=== PATIENT | female | born 1965 | race Caucasian/White ===

== ENCOUNTER → 2017-04-11 11:58 | Outpatient (CLI) | payer BC, SELFPAY ==
--- NOTE | 2017-04-11 12:04 | XR_ITS ---
XR chest 2V HISTORY: ITS.REASON: PNEUMONIA ORDERING PHYSICIAN: Narda Johnson PATIENT AGE: 51 years COMPARISON: 10/07/2010 FINDINGS: The heart size is normal. There is however increased density in the ronny bilaterally with mild prominence of mediastinum consistent with bilateral hilar and mediastinal adenopathy. There is increased density in the left perihilar region which is somewhat rounded in nature measuring 2.5 cm. While this could be due to an area of pneumonia, pulmonary mass is also considered. There is some patchy density in the right infrahilar region as well with a nodular opacity noted over the right lower lung zone at the fifth rib anteriorly. This measures 12 mm. An 8 mm nodule present in the right upper lobe. This constellation of findings are worrisome for metastatic disease. Recommend chest CT with contrast for further evaluation. No obvious effusion. No acute bony anomalies. There are atelectatic changes in the left hilum. IMPRESSION: 1. Mediastinal and hilar adenopathy with bilateral pulmonary nodules suspicious for metastatic disease. Recommend chest CT with contrast for further evaluation. 2. Left perihilar atelectatic change.
== END ==
PROVIDERS: PCP Nurse Practitioner Family; Visit Provider Nurse Practitioner Family
DX: J18.9 Pneumonia, unspecified organism (principal)
CPT/HCPCS: 71046

== ENCOUNTER → 2017-04-17 10:08 | Outpatient (CLI) | payer BC, SELFPAY ==
--- NOTE | 2017-04-17 10:15 | CT_ITS ---
CT chest w con HISTORY: ITS.REASON: LUNG MASS ORDERING PHYSICIAN: Guillaume Toro MD PATIENT AGE: 51 years TECHNIQUE: Axial images obtained following the administration of 75 mL of Isovue 370 . Sagittal, and coronal reformatted images are also generated and reviewed. COMPARISON: Chest x-ray 04/11/2017 FINDINGS: There is diffuse mediastinal and hilar adenopathy. Right hilar lymph nodes measure up to 4.2 x 3.1 cm. Left hilar lymph nodes measure up to 3.5 x 3.3 cm. Right pretracheal lymph nodes measure up to 3.3 x 2.7 cm. There are multiple pulmonary nodules in both lungs measuring up to 4.6 x 4 cm in the right upper lobe. The increased density in the right upper lobe and part may be related to post obstructive changes. Nonetheless, there are in numerable bilateral small pulmonary nodules measuring up to 1.3 cm right lower lobe and 2.3 cm and the left perihilar region. No pleural effusion. Upper abdominal images show at least 2 enhancing lesions of the liver the largest in the right hepatic lobe at 2.9 x 2.5 cm. This has some decreased density centrally. There is a 12 mm enhancing lesion in the anterior segment of the right hepatic lobe and an additional 16 mm enhancing lesion at the junction of the right left hepatic lobe. The liver is incompletely imaged. In addition, there is a large left retroperitoneal mass measuring 9.5 x 8.9 cm with some decreased density centrally. The superior to be coming from the left adrenal gland. However, dedicated CT abdomen is needed for confirmation. There is sclerosis involving the adjoining endplates T8 and T9 which may be discogenic in nature. A small sclerotic focus involves the inferior aspect of the T10 vertebral body on the left. This is nonspecific. IMPRESSION: 1. Metastatic disease of the lungs with mediastinal and hilar adenopathy along with metastasis of the liver. 2. Approximately 10 cm left retroperitoneal mass which may be adrenal in origin and may be due to metastatic disease or an adrenal/renal primary. Suggest CT scan of the abdomen and pelvis with IV and oral contrast for further evaluation.
== END ==
PROVIDERS: Family Provider Family Medicine; PCP Nurse Practitioner Family; Visit Provider Family Medicine
DX: R91.8 Other nonspecific abnormal finding of lung field (principal)
CPT/HCPCS: 71260; Q9967

== ENCOUNTER → 2017-04-19 08:04 | Outpatient (CLI) | payer BC, SELFPAY ==
--- NOTE | 2017-04-19 08:09 | CT_ITS ---
CT abdomen pelvis w con CLINICAL INDICATION: ITS.REASON: WIDESPREAD METASTATIC MALIGNANT NEOPLASTIC DISEASE ORDERING PHYSICIAN: Guillaume Toro MD PATIENT AGE: 51 years COMPARISON: CT chest of 04/17/2017 TECHNIQUE: Axial images obtained with sagittal and coronal reformats. PROCEDURE: Oral Contrast: Redicat IV Contrast: 75 mL's Isovue-370. FINDINGS: There are multiple liver lesions. Some of these lesions are better demonstrated on the chest CT of 04/17/2017 due to the phase of contrast enhancement. On that previous study there was a 3 cm peripherally enhancing lesion in the posterior segment of the right hepatic lobe as well as small enhancing nodules in the right hepatic lobe anteriorly at 12 mm and the left hepatic lobe medially at 16 mm. In addition, on today's exam there is a peripherally enhancing mass in the right hepatic lobe inferiorly at 3.9 x 3.3 cm. The spleen, right adrenal gland, pancreas, gallbladder, and right kidney are unremarkable. There is a heterogeneous mostly isodense left renal mass involving the mid and superior pole of the left kidney measuring 11 cm cephalad to caudad, 8 cm AP, an 8 cm transverse. This is immediately adjacent to the infra aspect of the spleen. However, there does appear to be a thin fat plane preserved between the renal mass and the spleen. The left adrenal gland appears slightly enlarged however, this may be due to superimposed adenopathy or nodularity from the left renal mass. There is adenopathy in the left para-aortic region measuring 4 x 3.6 cm. The fat plane between the enlarged node in the lateral aspect of the aorta on the left NOT preserved. The toney mass in the left periaortic region measures up to 4 cm AP, 4 cm transverse, and 10 cm cephalad to caudad. The left renal vein is enlarged proximally near the renal hilum. The renal vein on the left however is not well opacified. There could very well be involvement with invasion into the proximal aspect of the left renal vein. The renal vein as it overlies the toney mass does not appear enlarged and is not enlarged at the junction with the inferior vena cava. No acute finding in the pelvis area there has been prior hysterectomy. The appendix has an unremarkable appearance. No ascites. Surgical clips are present in the left pelvic region. No bony destructive process apparent. There are degenerative changes in the thoracic and lumbar spine. IMPRESSION: The findings are consistent with renal cell carcinoma with metastatic disease to the liver and lung and mediastinum along with regional lymph nodes in the left para-aortic region. Large left renal mass is present measuring 11 x 8 x 8 cm. Enlarged lymph nodes are present in the left para-aortic region and there may be involvement of the proximal aspect of the left renal vein.
--- NOTE | 2017-04-19 08:09 | CT_ITS ---
CT head/brain wo/w con HISTORY: ITS.REASON: WIDESPREAD METASTATIC MALIGNANT NEOPLASTIC DISEASE, liver and lung metastasis, cancer staging ORDERING PHYSICIAN: Guillaume Toro MD PATIENT AGE: 51 years COMPARISON: None TECHNIQUE: Axial images obtained without and with contrast. Brain and bone windows reviewed. Contrast: 75 mL Isovue-370 FINDINGS: No midline shift, mass effect, intracranial hemorrhage, hydrocephalus, or extra-axial fluid collection is evident. No enhancing lesions are evident. The calvarium has an unremarkable appearance. No mastoid effusion. No sinus air-fluid levels.. IMPRESSION: Negative CT head without and with contrast. No convincing evidence of intracranial metastasis.
--- NOTE | 2017-04-19 08:11 | MM_ITS ---
MM Dig screening mamm BI w/CAD CAD Screening COMPARISON: Digital mammograms 03/21/2012 INDICATION: There is no personal or family history of breast cancer TECHNIQUE: Standard CC and MLO images were obtained. R2 CAD reviewed. FINDINGS: Mild to moderate scattered fibroglandular densities are seen throughout both breasts. There are few benign-appearing calcifications in each breast. There is no suspicious lesion and no suspicious microcalcifications. IMPRESSION: Fibrofatty parenchyma with no suspicious lesion seen recommend yearly follow-up BI-RADS Category: 2 Benign Finding(s) RECOMMENDED FOLLOW-UP: 1YR - 1 YEAR FOLLOW-UP (A letter has been sent to the patient regarding results of the study.)
== END ==
PROVIDERS: Family Provider Family Medicine; PCP Nurse Practitioner Family; Visit Provider Family Medicine
DX: Z12.39 Encounter for other screening for malignant neoplasm of breast (principal); C80.0 Disseminated malignant neoplasm, unspecified
CPT/HCPCS: 70470; 74177; 77067; Q9967

== ENCOUNTER → 2017-05-07 12:52 | Outpatient (CLI) | payer BC, SELFPAY ==
--- NOTE | 2017-05-07 13:01 | XR_ITS ---
XR chest 2V HISTORY: ITS.REASON: COUGH ORDERING PHYSICIAN: Guillaume Toro MD PATIENT AGE: 51 years COMPARISON: 04/11/2017 FINDINGS: Mediastinal and hilar adenopathy is once again noted with bilateral pulmonary nodules suspicious for metastatic disease. A new area of infiltrate is present in the perihilar region on the left in the left upper lobe consistent with pneumonia. The left hilar adenopathy may be slightly worse. No effusions. No evidence of pneumothorax. No acute bony anomalies. IMPRESSION: 1. Left upper lobe pneumonia. 2. Persistent mediastinal and hilar adenopathy with no change in the bilateral pulmonary nodules consistent with metastasis. Left hilar adenopathy may be slightly more bulky.
--- NOTE | 2017-05-07 13:18 | US_ITS ---
US abdomen limited: INDICATION: Abdominal swelling following biopsy ITS.REASON: ABDOMINAL SWELLING ORDERING PHYSICIAN: Guillaume Toro MD PATIENT AGE: 51 years comparison: CT scan of 04/19/2017. FINDINGS: Patient is status post percutaneous biopsy performed at an outside institution now with increasing abdominal pain. There is a 4.7 x 3.9 cm isoechoic mass in the right hepatic lobe inferiorly. A 3 cm mass involves the right hepatic lobe posteriorly and medially. No perihepatic fluid collection apparent. Imaging performed of upper lower quadrants bilaterally showing no free fluid. The gallbladder has an unremarkable appearance. Common bile duct is normal at 4 mm. Right kidney is unremarkable. IMPRESSION: 1. No ascites or perihepatic fluid evident. 2. Right hepatic masses consistent with metastatic disease
== END ==
PROVIDERS: PCP Family Medicine; Visit Provider Family Medicine
DX: R05 Cough (principal)
CPT/HCPCS: 71046; 76705

== ENCOUNTER 2017-06-05 20:19 | Observation (INO) | payer BC, SELFPAY ==
[2017-06-05 20:28] VITALS: BP 134/87; PULSE 82; RESP 14; TEMP 36.8; O2SAT 97; BMI 26.6
--- NOTE | 2017-06-05 20:36 | CT_ITS ---
CT abdomen pelvis wo con CLINICAL INDICATION: Abdominal pain, renal cell carcinoma with metastasis ITS.REASON: ABD PAIN ORDERING PHYSICIAN: Guillaume Toro MD PATIENT AGE: 51 years COMPARISON: 04/19/2017 TECHNIQUE: Axial images obtained with sagittal and coronal reformats. PROCEDURE: Oral Contrast: None IV Contrast: None . FINDINGS: Multiple bilateral pulmonary nodules are present along with bilateral hilar adenopathy with the largest nodule on the right measuring 12 x 9 mm and largest nodule in the peripheral aspect of the left lower lobe 5 mm. Some of the nodules have increased in size. There are multiple hypoattenuating lesions within the liver the largest in the inferior aspect of the right hepatic lobe which measures 5.6 x 5.4 cm previously 3.3 x 3.9 cm. Another lesion in the medial aspect of the right hepatic lobe measures 3.8 x 2.9 cm previously 1.8 x 1.8 cm. Spleen, adrenal glands, and pancreas and right kidney are unremarkable. Once again noted a large left renal mass 10 x 8 9 x 7.5 cm. Extensive retroperitoneal adenopathy once again noted on the left measuring approximately 12 cm longitudinally and 4.5 cm transverse previously 11 x 4.2 cm No focal inflammatory change. No evidence of appendicitis or diverticulitis. No intestinal obstruction or free air. There are post hysterectomy changes. No bony destructive process. IMPRESSION: The findings are consistent with left renal malignancy with associated left retroperitoneal lymph nodes, hepatic metastasis, and lung opacities. There has been progression of the primary and metastatic lesions when compared to the previous exam
--- NOTE | 2017-06-05 20:36 | XR_ITS ---
XR chest 2V HISTORY: ITS.REASON: CHILLS, FEVER ORDERING PHYSICIAN: Guillaume Toro MD PATIENT AGE: 51 years COMPARISON: 05/07/17 FINDINGS: Normal heart size. There is mediastinal adenopathy and hilar adenopathy with bilateral pulmonary nodules as before. There are minimal atelectatic changes in the left midlung. No lobar consolidation or collapse. No bony destructive process. IMPRESSION: 1. Metastatic disease with multiple pulmonary nodules and mediastinal and hilar adenopathy. These findings may be slightly worse than when compared to the previous exam. 2. No acute infiltrate apparent
[2017-06-05 21:02] LABS: Basophils % 0.4 % (0.1-2.0); Eosinophils # 0.1 K/mm3 (0.0-0.4); Eosinophils % 0.7 % (0.1-12.0); Hematocrit 37.2 % (37.0-47.0); Hemoglobin 12.1 g/dL (12.2-16.2); Lymphocytes # 1.2 K/mm3 (0.7-4.5); Lymphocytes % 11.4 K/mm3 (10-50); Mean Corpuscular HGB Conc 32.5 g/dL (31.8-35.4); Mean Corpuscular Hemoglobin 27.8 pg (27.0-31.2); Mean Corpuscular Volume 85.5 fl (81-99); Mean Platelet Volume 7.7 fl (7.4-10.4); Monocytes # 0.6 K/mm3 (0.1-1.0); Monocytes % 5.9 % (1.7-9.3); Neutrophils # 8.7 K/mm3 (1.8-7.8); Neutrophils % 81.6 % (37.0-80.0); Platelet Count 281 K/mm3 (142-424); Red Blood Count 4.35 M/mm3 (4.20-5.40); Red Cell Distribution Width 13.5 % (11.5-17.5); White Blood Count 10.6 K/mm3 (4.8-10.8)
--- NOTE | 2017-06-05 21:07 | CT_ITS ---
CT head/brain wo con HISTORY: Headache, metastatic disease from renal carcinoma ORDERING PHYSICIAN: Guillaume Toro MD PATIENT AGE: 51 years COMPARISON: 04/19/2017 TECHNIQUE: Axial images obtained without contrast. Brain and bone windows reviewed. FINDINGS: No midline shift, mass effect, intracranial hemorrhage, hydrocephalus, or extra-axial fluid collection is evident. The calvarium has an unremarkable appearance. Small amount fluid in left mastoid sinus.. No sinus air-fluid levels.. IMPRESSION: No acute intracranial findings..
[2017-06-05 21:15] LABS: Alanine Aminotransferase 24 U/L (12-78); Albumin Level 2.9 gm/dL (3.4-5.0); Albumin/Globulin Ratio 0.6 (1.1-1.8); Alkaline Phosphatase 113 U/L (46-116); Amylase 49 U/L (25-125); Anion Gap 15.6 mEq/L (5-15); Aspartate Amino Transferase 14 U/L (15-37); Bilirubin,Total 0.3 mg/dL (0.2-1.0); Blood Urea Nitrogen 19 mg/dL (7-18); Calcium 9.2 mg/dL (8.5-10.1); Carbon Dioxide 25 mmol/L (21.0-32.0); Chloride 97 mmol/L (98-107); Creatinine Clearance Estimated 70 mL/min (0-300); Creatinine,Serum 1.07 mg/dL (0.55-1.02); Estimated Glomerular Filt Rate 54 ml/min (>60); GFR (African American) 65 ML/MIN (>60); Globulin 4.6 gm/dl (1.3-3.2); Glucose 145 mg/dL (74-106); Lipase 116 u/L (73-393); Potassium 3.6 mmoL/L (3.5-5.1); Sodium 134 mmol/L (136-145); Total Protein,Serum 7.5 gm/dL (6.4-8.2)
[2017-06-05 21:22] LABS: Lactic Acid 2.8 mmol/L (0.4-2.0)
[2017-06-05 21:28] LABS: Microscopic, Urine URINE MICROSCOPIC (MICROSCOPIC)
[2017-06-05 21:30] LABS: Appearance,Urine CLEAR (Clear); Bilirubin,Urine Negative (Negative); Blood, Urine 3+ (Negative); Color,Urine YELLOW (Yellow); Glucose,Urine (UA) Negative (Negative); Ketones,Urine Negative (Negative); Leukocyte Esterase,Urine Negative (Negative); Nitrate,Urine Negative (Negative); Protein,Urine 2+ (Negative); Specific Gravity, Urine 1.025 (1.005-1.030); Urobilinogen,Urine 0.2 EU/dl (0.2)
--- NOTE | 2017-06-05 21:38 | HMH.EDWEAK ---
ED Disposition Clinical Impression: Syncope, near Renal cancer Qualifiers: Laterality: unspecified laterality Qualified Code(s): C64.9 - Malignant neoplasm of unspecified kidney, except renal pelvis Adverse drug effect Qualifiers: Encounter type: initial encounter Qualified Code(s): T88.7XXA - Unspecified adverse effect of drug or medicament, initial encounter Disposition: Admitted as Observation Condition on Discharge: Good Referrals: Guillaume Toro MD [Primary Care Provider] - - Critical Care Critical Care Time: No Attestation: On 06/05/17, the high probability of a clinically significant, sudden or life threatening deterioration of the following system(s) required my full and direct attention, intervention and personal management. The time I documented below is in addition to time spent performing reported procedures but includes the following listed in this critical care notation. Medical Decision Making - Medical Records Medical records reviewed: Yes: I reviewed the patient's medical records. Vital Signs: 06/05/17 20:28 06/05/17 22:08 Temperature 98.2 F Temperature Source Oral Pulse Rate [Right Radial] 82 67 Respiratory Rate 14 16 Blood Pressure [Right Arm] 134/87 111/72 Blood Pressure Mean [Right Arm] 102 85 Blood Pressure Source [Right Arm] Automatic Cuff Blood Pressure Position [Right Arm] Sitting Supine 02 Sat by Pulse Oximetry 97 97 Oxygen Delivery Method Room Air - Lab Data Lab results reviewed: Yes: I reviewed the patient's lab results. Lab Results 06/05/17 20:40: Urine Color Yellow, Urine Appearance Clear, Urine pH 7.0, Ur Specific [place] 1.025, Urine Protein 2+, Urine Glucose (UA) Negative, Urine Ketones Negative, Urine Blood 3+, Urine Nitrate Negative, Urine Bilirubin Negative, Urine Urobilinogen 0.2, Ur Leukocyte Esterase Negative, Urine RBC 20-50, Urine WBC 10-20, Ur Squamous Epith Cells 5-10, Urine Bacteria 2+, Hyaline Casts Occasional, Urine Mucus 2+ 06/05/17 20:45: WBC 10.6, RBC 4.35, Hgb 12.1 L, Hct 37.2, MCV 85.5, MCH 27.8, MCHC 32.5, RDW 13.5, Plt Count 281, MPV 7.7, Neut % (Auto) 81.6 H, Lymph % (Auto) 11.4, [place] % (Auto) 5.9, Eos % (Auto) 0.7, Baso % (Auto) 0.4, Neut # (Auto) 8.7 H, Lymph # (Auto) 1.2, [place] # (Auto) 0.6, Eos # (Auto) 0.1, Baso # (Auto) 0.0 06/05/17 20:45: Sodium 134 L, Potassium 3.6, Chloride 97 L, Carbon Dioxide 25, Anion Gap 15.6 H, BUN 19 H, Creatinine 1.07 H, Estimated Creat Clear 70, Estimated GFR 54 L, Est GFR ( Amer) 65, Glucose 145 H, Calcium 9.2, Total Bilirubin 0.3, AST 14 L, ALT 24, Alkaline Phosphatase 113, Total Protein 7.5, Albumin 2.9 L, Globulin 4.6 H, Albumin/Globulin Ratio 0.6 L, Amylase 49, Lipase 116 06/05/17 20:45: Lactic Acid 2.8 H 06/05/17 20:45: Influenza Type A Ag Negative, Influenza Type B Ag Negative Result diagrams: 06/05/17 20:45 06/05/17 20:45 Orders (Tests/Meds): ED MEDICATIONS Generic Name Dose Route Start Last Admin Trade Name Freq PRN Reason Stop Dose Admin Sodium Chloride 1,000 mls @ 250 mls/hr 06/05/17 22:15 06/05/17 22:17 Sod Chlor 0.9% 1000ml Bag IV 07/05/17 22:14 250 mls/hr .Q4H DINESH Administration Discontinued Medications Generic Name Dose Route Start Last Admin Trade Name Freq PRN Reason Stop Dose Admin Sodium Chloride 1,000 mls @ 999 mls/hr 06/05/17 20:45 06/05/17 20:49 Sod Chlor 0.9% 1000ml Bag IV 06/05/17 21:45 999 mls/hr .Q1H1M DINESH Administration Ketorolac Tromethamine 30 mg 06/05/17 20:50 06/05/17 20:51 Toradol 30mg/Ml Vial IV 06/05/17 20:51 30 mg ONCE ONE Administration ORDERS Category Date Time Status CT abdomen pelvis wo con Stat Cat Scan 06/05/17 20:[address] head/brain wo con Routine Cat Scan 06/05/17 21:07 Taken XR chest 2V Stat Exams 06/05/17 20:36 Taken UA [Urinalysis and Microscopic] Stat Lab 06/05/17 22:53 Ordered Blood Culture Stat Micro 06/05/17 22:53 Ordered Urine Culture Stat Micro 06/05/17 20:40 Received - Rad
[2017-06-05 21:46] LABS: Bacteria,Urine 2+ /lpf; Hyaline Casts,Urine Occasional #/lpf (0); Mucus,Urine 2+ /lpf; RBC,Urine 20-50 #/hpf (0-3)
[2017-06-05 22:08] VITALS: BP 111/72; PULSE 67; RESP 16; O2SAT 97
--- NOTE | 2017-06-05 22:47 | PC.NURSE ---
dr dick paged per dr brandt reagarding admission
--- NOTE | 2017-06-05 22:52 | PC.NURSE ---
dr brandt speaking with mayelin at this time
--- NOTE | 2017-06-05 22:55 | PC.NURSE ---
dr dick agreed to admission
[2017-06-05 23:11] VITALS: BMI 28.0
[2017-06-05 23:22] VITALS: BP 121/70; PULSE 78; RESP 20; TEMP 36.6; O2SAT 99
[2017-06-05 23:44] VITALS: BP 121/73; PULSE 66; RESP 16; TEMP 36.4; O2SAT 96
[2017-06-06 00:52] LABS: Reflex Lactic Add Lactic Reflex
[2017-06-06 01:37] LABS: Lactic Acid Follow Up (RFLX 1) 1.2 (0.4-2.0)
[2017-06-06 04:09] VITALS: BP 110/70; PULSE 69; RESP 14; TEMP 36.6; O2SAT 97
--- NOTE | 2017-06-06 04:10 | PC.NURSE ---
Since admission pt has had only complaints of mild abdominal pain, medicated per mar, has rested well since medication administration. BS active in all 4 qauds, LBM 06/05/17. Lung sounds diminished. VSS. Jaundice noted to abdomen. No acute distress noted. Will continue to monitor.
[2017-06-06 06:48] LABS: Basophils % 0.5 % (0.1-2.0); Eosinophils # 0.1 K/mm3 (0.0-0.4); Hematocrit 34.9 % (37.0-47.0); Lymphocytes % 14.1 K/mm3 (10-50); Mean Corpuscular HGB Conc 31.7 g/dL (31.8-35.4); Mean Corpuscular Hemoglobin 27.2 pg (27.0-31.2); Mean Platelet Volume 8.8 fl (7.4-10.4); Monocytes # 0.5 K/mm3 (0.1-1.0); Monocytes % 6.9 % (1.7-9.3); Neutrophils # 5.2 K/mm3 (1.8-7.8); Neutrophils % 76.5 % (37.0-80.0); Platelet Count 213 K/mm3 (142-424); Red Blood Count 4.06 M/mm3 (4.20-5.40); Red Cell Distribution Width 13.7 % (11.5-17.5); White Blood Count 6.8 K/mm3 (4.8-10.8)
[2017-06-06 07:02] LABS: Anion Gap 10.7 mEq/L (5-15); Blood Urea Nitrogen 21 mg/dL (7-18); Carbon Dioxide 27 mmol/L (21.0-32.0); Chloride 104 mmol/L (98-107); Creatinine Clearance Estimated 99 mL/min (0-300); Creatinine,Serum 0.79 mg/dL (0.55-1.02); Estimated Glomerular Filt Rate 76 ml/min (>60); GFR (African American) 92 ML/MIN (>60); Glucose 107 mg/dL (74-106); Magnesium 1.7 mg/dL (1.4-2.2); Potassium 3.7 mmoL/L (3.5-5.1); Sodium 138 mmol/L (136-145)
--- NOTE | 2017-06-06 07:23 | HMH.PHAVTE ---
[facility] Pharmacy VTE Monitoring - Patient Demographics Admission date: 06/05/17 Report Date: 06/06/17 Time: 07:23 Allergies/Adverse Reactions: Patient Allergies adalimumab [From Humira] Allergy (Severe, Verified 06/05/17 20:36) Rash Height: 1.65 m Weight: 76.345 kg Patient Problems: Current Active Problems Syncope, near (Acute) Renal cancer (Acute) Adverse drug effect (Acute) - VTE Risk Labs: VTE Related Lab Results Hgb 11.0 g/dL (12.2-16.2) L 06/06/17 06:30 Hct 34.9 % (37.0-47.0) L 06/06/17 06:30 Plt Count 213 K/mm3 (142-424) 06/06/17 06:30 BUN 21 mg/dL (7-18) H 06/06/17 06:30 Creatinine 0.79 mg/dL (0.55-1.02) D 06/06/17 06:30 Estimated Creat Clear 99 mL/min (0-300) 06/06/17 06:30 Was VTE Risk Assessment Performed: Yes VTE Score: 4 VTE Risk Level: Low Risk Clinical Trial Participant: No - Prophylaxis VTE Prophylaxis Ordered?: Yes Types of VTE Prophylaxis: TEDS Knee High
[2017-06-06 07:50] VITALS: BP 131/81; PULSE 73; RESP 18; TEMP 36.7; O2SAT 97
--- NOTE | 2017-06-06 08:25 | HMH.HP ---
*Admission Date: 06/05/17 <Cristal [place] 06/06/17 08:38> *Chief complaint: Weakness, chills, presyncope <Cristal [place] 06/06/17 08:38> *History of present illness: Ms. Carter is a 51-year-old female with history of metastatic renal cell carcinoma. She started chemo on Votrient 800 mg daily 1 week ago. Her oncologist is at [facility]. She states yesterday she began feeling extremely weak. She was chilling even with numerous layers of clothes, her back was hurting, she was having a severe right-sided headache, and she felt like she could pass out. Her daughter took her blood pressure and it was 100/60. States she came to the emergency room for evaluation and treatment. Her lactic acid was slightly elevated. She was admitted. Oncology at [facility] was consulted and they recommended she stop taking her Votrient. <Cristal Washington 06/06/17 08:38> [facility] History Medical History: Reports:: Cancer (lung, renal, liver), Hyperlipidemia, Hypertension Denies:: Diabetes Mellitus Type 1, Diabetes Mellitus Type 2, MRSA <Cristal [place] 06/06/17 08:38> Other Medical History: Reports: Blood Transfusion Reaction, Chemotherapy, Hypothyroidism <Cristal [place] 06/06/17 08:38> Other Surgeries: Yes: , Hysterectomy-Total <Critsal [place] 06/06/17 08:38> Amputation: No <Cristal [place] 06/06/17 08:38> Fractures: No <Cristal [place] 06/06/17 08:38> - *Social History Educational Level: Completed College <Cristal [place] 06/06/17 08:38> Smoking Status: Former smoker <Cristal [place] 06/06/17 08:38> Alcohol Intake: never <Cristal [place] 06/06/17 08:38> Occupational Status: employed <Cristal Washington 06/06/17 08:38> Household Members: spouse, children <Cristal Washington 06/06/17 08:38> - Psychiatric History Expresses thoughts of harming self/others: None <Cristal [place] - 03/07/18 08:38> Suicide Plan Description: No Plan <Cristal [place] 06/06/17 08:38> *Family Hx:: Cancer, Heart Attack, Hypertension, Stroke <Cristal [place] 06/06/17 08:38> Review of Systems - Constitutional Reports body ache(s), Reports chills, Reports fever(s), Reports headache(s), Reports weakness <Cristal [place] 06/06/17 08:38> - Eyes Denies blurry vision, Denies double vision <Cristal [place] 06/06/17 08:38> - ENT Denies nasal congestion, Denies sore throat <Cristal [place] 06/06/17 08:38> - *Cardiovascular Reports chest pain (off and on) <Cristal [place] 06/06/17 08:38> - *Respiratory Reports cough, Reports shortness of breath <Cristal [place] 06/06/17 08:38> - *Gastrointestinal Reports abdominal pain (epigastric), Reports loose stools, Reports nausea, Reports vomiting <Cristal [place] 06/06/17 08:38> - *Genitourinary Denies difficulty urinating, Denies painful urination <Cristal [place] 06/06/17 08:38> - *Musculoskeletal Denies joint pain <Cristal [place] 06/06/17 08:38> - *Neurologic Reports headache(s), Denies dizziness, Denies seizure-like activity, Denies dizziness <Cristal [place] 06/06/17 08:38> Meds Home Medications Medication Instructions Recorded Confirmed Type Estradiol 2 mg PO DAILY 06/05/17 06/05/17 History Levothyroxine Sodium 88 mcg PO DAILY 06/05/17 06/05/17 History [Levothyroxine 88mcg (0.088mg) Tab] Lisinopril/Hydrochlorothiazide 1 tab PO DAILY 06/05/17 06/05/17 History [Lisinopril-Hctz 20-12.5 mg Tab] Montelukast Sodium [Montelukast 10 mg PO DAILY 06/05/17 06/05/17 History 10mg Tab] Pazopanib HCl [Votrient] 800 mg PO DAILY 06/05/17 06/05/17 History Lovastatin [Lovastatin] 40 mg PO HS 06/06/17 06/06/17 History Ustekinumab [Stelara] 45 mg SQ DIRECTED 06/06/17 06/06/17 History <Guillaume Toro - 06/06/17 08:40> Allergies Allergy/AdvReac Type Severity Reaction Status Date / Time adalimumab [From Humira] Allergy Severe Rash Verified 06/05/17 20:36 <Guillaume Toro - 06/06/17 08:40> Exam Vital signs and Labs for Last 24 Hours: Temp Pulse Resp BP Pulse Ox 9
--- NOTE | 2017-06-06 08:29 | P.HP_ITS ---
*Admission Date: 06/05/17 <Cristal Washington 06/06/17 08:38> *Chief complaint: Weakness, chills, presyncope <Cristal Washington 06/06/17 08:38 > *History of present illness: Ms. Carter is a 51-year-old female with history of metastatic renal cell carcinoma. She started chemo on Votrient 800 mg daily 1 week ago. Her oncologist is at [facility]. She states yesterday she began feeling extremely weak. She was chilling even with numerous layers of clothes, her back was hurting, she was having a severe right-sided headache, and she felt like she could pass out. Her daughter took her blood pressure and it was 100/60. States she came to the emergency room for evaluation and treatment. Her lactic acid was slightly elevated. She was admitted. Oncology at [facility] was consulted and they recommended she stop taking her Votrient. <Cristal Washington 06/06/17 08:38> [facility] History Medical History: Reports:: Cancer (lung, renal, liver), Hyperlipidemia, Hypertension Denies:: Diabetes Mellitus Type 1, Diabetes Mellitus Type 2, MRSA <Cristal Washington 06/06/17 08:38> Other Medical History: Reports: Blood Transfusion Reaction, Chemotherapy, Hypothyroidism <Cristal Washington 06/06/17 08:38> Other Surgeries: Yes: , Hysterectomy-Total <Cristal Washington 06/06/17 08:38> Amputation: No <Cristal Washington 06/06/17 08:38> Fractures: No <Cristal Washington 06/06/17 08:38> - *Social History Educational Level: Completed College <Cristal Washington 06/06/17 08:38> Smoking Status: Former smoker <Cristal Washington 06/06/17 08:38> Alcohol Intake: never <Cristal Washington 06/06/17 08:38> Occupational Status: employed <Cristal Washington 06/06/17 08:38> Household Members: spouse, children <Cristal Washington 06/06/17 08:38> - Psychiatric History Expresses thoughts of harming self/others: None <Cristal Washington - 03/07/18 08: 38> Suicide Plan Description: No Plan <Cristal Washington 06/06/17 08:38> *Family Hx:: Cancer, Heart Attack, Hypertension, Stroke <Cristal Washington 06/06 08:38> Review of Systems - Constitutional Reports body ache(s), Reports chills, Reports fever(s), Reports headache(s), Reports weakness <Cristal Washington 06/06/17 08:38> - Eyes Denies blurry vision, Denies double vision <Cristal Washington 06/06/17 08:38> - ENT Denies nasal congestion, Denies sore throat <Cristal Washington 06/06/17 08:38> - *Cardiovascular Reports chest pain (off and on) <Cristal Washington 06/06/17 08:38> - *Respiratory Reports cough, Reports shortness of breath <Cristal Washington 06/06/17 08:38> - *Gastrointestinal Reports abdominal pain (epigastric), Reports loose stools, Reports nausea, Reports vomiting <Cristal Washington 06/06/17 08:38> - *Genitourinary Denies difficulty urinating, Denies painful urination <Cristal Washington 08:38> - *Musculoskeletal Denies joint pain <Cristal Washington 06/06/17 08:38> - *Neurologic Reports headache(s), Denies dizziness, Denies seizure-like activity, Denies dizziness <Cristal Washington 06/06/17 08:38> Meds Home Medications Medication Instructions Recorded Confirmed Type Estradiol 2 mg PO DAILY 06/05/17 06/05/17 History Levothyroxine Sodium 88 mcg PO DAILY 06/05/17 06/05/17 History [Levothyroxine 88mcg (0.088mg) Tab] Lisinopril/Hydrochlorothiazide 1 tab PO DAILY 06/05/17 06/05/17 History [Lisinopril-Hctz 20-12.5 mg Tab] Montelukast Sodium [Montelukast 10 mg PO DAILY 06/05/17 06/05/17 History 10mg Tab] Pazopanib HCl [Votrient] 800 mg PO DAILY 06/05/17 06/05/17 History Lovastatin [Lovastatin] 40 m
[2017-06-06 13:30] VITALS: BMI 28.0
[2017-06-06 16:00] VITALS: BP 136/76; PULSE 79; RESP 22; TEMP 37.5; O2SAT 98
--- NOTE | 2017-06-06 18:38 | PC.NURSE ---
lungs are cta, normal heart and lung sounds. c/o of pain to right side of head prn med given per mar with relief. c/o of chills off and on this shift. call light in reach. will continue to monitor pt condition.
--- NOTE | 2017-06-06 19:15 | PC.NURSE ---
PT DNR. PURPLE DNR BRACELET ON. CODE STATUS DOCUMENT VERIFIED AND ON CHART. REPORT RECEIVED FROM ESTEFANI
--- NOTE | 2017-06-06 19:30 | PC.NURSE ---
report given to artemio tam rn
[2017-06-06 19:50] VITALS: BP 127/75; PULSE 82; RESP 20; TEMP 37; O2SAT 93
[2017-06-06 21:00] VITALS: RESP 20; O2SAT 93
[2017-06-07 04:00] VITALS: BP 120/77; PULSE 83; RESP 18; TEMP 37.3; O2SAT 95
--- NOTE | 2017-06-07 05:53 | PC.NURSE ---
PT SLEPT MOST ALL OF SHIFT. C/O HEADACHE X1, ONE LORTAB GIVEN. PT STATES FEELS MUCH BETTER. RESPIRATIONS EVEN AND UNLABORED ON ROOM AIR. BREATH SOUNDS EQUAL AND CLEAR. NO C/O CHEST PAIN. PT DOES C/O SOA UPON EXERTION, JUST WALKING TO/FROM BATHROOM. VSS. IV SECURE AND PATENT. PT STABLE. WILL CONTINUE TO MONITOR. REPORT TO BE GIVEN TO ONCOMING NURSE.
[2017-06-07 07:58] VITALS: BP 134/76; PULSE 72; RESP 18; TEMP 37.1; O2SAT 97
--- NOTE | 2017-06-07 08:17 | HMH.ACPN2 ---
<Cristal Washington - Last Filed: 06/07/17 08:17> Internal Medicine - PN: Subj *Date: 06/07/17 *Time: 08:17 Interval history: Patient is feeling better today. She has been off of her chemo for 2 days. Her labs improved yesterday morning. Her abdominal pain has improved as has her headache. Exam Vital signs and Labs for Last 24 Hours: Temp Pulse Resp BP Pulse Ox 98.7 F 72 18 134/76 97 06/07/17 07:58 06/07/17 07:58 06/07/17 07:58 06/07/17 07:58 06/07/17 07:58 Lab Results 06/05/17 20:40: Urine Color Yellow, Urine Appearance Clear, Urine pH 7.0, Ur Specific [place] 1.025, Urine Protein 2+, Urine Glucose (UA) Negative, Urine Ketones Negative, Urine Blood 3+, Urine Nitrate Negative, Urine Bilirubin Negative, Urine Urobilinogen 0.2, Ur Leukocyte Esterase Negative, Urine RBC 20-50, Urine WBC 10-20, Ur Squamous Epith Cells 5-10, Urine Bacteria 2+, Hyaline Casts Occasional, Urine Mucus 2+ 06/05/17 20:45: WBC 10.6, RBC 4.35, Hgb 12.1 L, Hct 37.2, MCV 85.5, MCH 27.8, MCHC 32.5, RDW 13.5, Plt Count 281, MPV 7.7, Neut % (Auto) 81.6 H, Lymph % (Auto) 11.4, [place] % (Auto) 5.9, Eos % (Auto) 0.7, Baso % (Auto) 0.4, Neut # (Auto) 8.7 H, Lymph # (Auto) 1.2, [place] # (Auto) 0.6, Eos # (Auto) 0.1, Baso # (Auto) 0.0 06/05/17 20:45: Sodium 134 L, Potassium 3.6, Chloride 97 L, Carbon Dioxide 25, Anion Gap 15.6 H, BUN 19 H, Creatinine 1.07 H, Estimated Creat Clear 70, Estimated GFR 54 L, Est GFR ( Amer) 65, Glucose 145 H, Calcium 9.2, Total Bilirubin 0.3, AST 14 L, ALT 24, Alkaline Phosphatase 113, Total Protein 7.5, Albumin 2.9 L, Globulin 4.6 H, Albumin/Globulin Ratio 0.6 L, Amylase 49, Lipase 116 06/05/17 20:45: Lactic Acid 2.8 H 06/05/17 20:45: Influenza Type A Ag Negative, Influenza Type B Ag Negative 06/06/17 01:05: Lactic Acid Fup @ 4Hr 1.2 06/06/17 06:30: WBC 6.8 D, RBC 4.06 L, Hgb 11.0 L, Hct 34.9 L, MCV 86.0, MCH 27.2, MCHC 31.7 L, RDW 13.7, Plt Count 213, MPV 8.8, Neut % (Auto) 76.5, Lymph % (Auto) 14.1, [place] % (Auto) 6.9, Eos % (Auto) 2.0, Baso % (Auto) 0.5, Neut # (Auto) 5.2, Lymph # (Auto) 1.0, [place] # (Auto) 0.5, Eos # (Auto) 0.1, Baso # (Auto) 0.0 06/06/17 06:30: Sodium 138, Potassium 3.7, Chloride 104, Carbon Dioxide 27, Anion Gap 10.7, BUN 21 H, Creatinine 0.79 D, Estimated Creat Clear 99, Estimated GFR 76, Est GFR ( Amer) 92 D, Glucose 107 H D, Magnesium 1.7 Microbiology Results 06/05/17 20:40 Urine,Clean Catch Urine Culture - Final Multiple organisms, suggests contamination. 06/05/17 20:45 Blood Blood Culture - Preliminary NO GROWTH AFTER 24 HOURS 06/05/17 20:45 Blood Blood Culture - Preliminary NO GROWTH AFTER 24 HOURS I & O for Last 24 hours: Intake & Output 06/04/17 06/05/17 06/06/17 06/07/17 11:59 11:59 11:59 11:59 Intake Total 591 / 591 3497 / 3497 Output Total 360 / 360 0 / 0 Balance 231 / 231 3497 / 3497 Weight 168 lb 4.99 oz 168 lb 4.99 oz - Constitutional no acute distress - *Routine Respiratory Exam Present: CTA bilaterally - *Routine Cardiovascular Exam Present: RRR - *Routine Abdominal Exam Present: soft, normoactive bowel sounds. Absent: tenderness - *Routine Extremities Exam Absent: edema Assessment and Plan (1) Syncope, near Current visit: Yes Status: Acute Category: Medical Code(s): R55 - Syncope and collapse (2) Adverse drug effect Current visit: Yes Status: Acute Qualifiers: Encounter type: initial encounter Qualified Code(s): T88.7XXA - Unspecified adverse effect of drug or medicament, initial encounter Category: Medical Code(s): T88.7XXA - Unspecified adverse effect of drug or medicament, initial encounter (3) Elevated lactic acid level Current visit: Yes Status: Acute Category: Medical Code(s): R79.89 - Other specified abnormal findings of blood chemistry (4) Renal insufficiency Current visit: Yes Status: Acute Fide
--- NOTE | 2017-06-09 17:45 | HMH.DCSUM ---
General - General Admission date: 06/05/17 Discharge date: 06/07/17 HPI HPI: Ms. Carter is a 51-year-old female with history of metastatic renal cell carcinoma. She started chemo on Votrient 800 mg daily 1 week ago. Her oncologist is at [facility]. She states yesterday she began feeling extremely weak. She was chilling even with numerous layers of clothes, her back was hurting, she was having a severe right-sided headache, and she felt like she could pass out. Her daughter took her blood pressure and it was 100/60. States she came to the emergency room for evaluation and treatment. Her lactic acid was slightly elevated. She was admitted. Oncology at [facility] was consulted and they recommended she stop taking her Votrient. Hospital Course Hospital Course: The patient had an abdominal CT showing left renal malignancy with associated left retroperitoneal lymph nodes, hepatic metastasis, and lung opacities. There had been progression of the primary and metastatic lesions when compared to the previous exam. She had a CXR showing metastatic disease with multiple pulmonary nodules and mediastinal and hilar adenopathy. These findings were slightly worse than when compared to the previous exam. She had a head CT showing nothing acute. She was rehydrated and her labs and symptoms improved. She was stable to be discharged home and will f/u in the office. Will contact patient's oncologist about when to resume her chemotherapy treatment. Objective Vital signs: Temp Pulse Resp BP Pulse Ox 98.7 F 72 18 134/76 97 06/07/17 07:58 06/07/17 07:58 06/07/17 07:58 06/07/17 07:58 06/07/17 07:58 Narrative: - Constitutional Comments: Does not appear to feel well - *Routine HEENT Exam Head: Present: normocephalic, atraumatic Eye: Present: EOMI, PERRL ENT: Present: mucous membranes moist - *Routine Neck Exam Present: supple, full ROM - *Routine Respiratory Exam Present: CTA bilaterally - *Routine Cardiovascular Exam Present: RRR - *Routine Abdominal Exam Present: soft, normoactive bowel sounds, tenderness (epigastric area) - *Routine Extremities Exam Absent: edema - *Routine Skin Exam Present: intact - *Routine Neurological Exam Present: alert, oriented X3 DS: Diagnosis - Discharge Diagnosis (1) Syncope, near Status: Acute (2) Adverse drug effect Status: Acute (3) Elevated lactic acid level Status: Resolved (4) Renal insufficiency Status: Resolved (5) Renal cancer Status: Chronic (6) Hypertension Status: Chronic (7) Hyperlipidemia Status: Chronic (8) Hypothyroid Status: Chronic Discharge Plan - Patient Discharge Instructions ACTIVITY: Continue current activity DIET: continue same diet Patient Instructions: DI for Syncope in Adults (Fainting) - Follow up Plan Follow up with: Guillaume Toro MD [Primary Care Provider] - 06/11/17 Disposition: Home, Self-Prison Medications: Home Medications Medication Instructions Recorded Confirmed Type Estradiol 2 mg PO DAILY 06/05/17 06/05/17 History Levothyroxine Sodium 88 mcg PO DAILY 06/05/17 06/05/17 History [Levothyroxine 88mcg (0.088mg) Tab] Lisinopril/Hydrochlorothiazide 1 tab PO DAILY 06/05/17 06/05/17 History [Lisinopril-Hctz 20-12.5 mg Tab] Montelukast Sodium [Montelukast 10 mg PO DAILY 06/05/17 06/05/17 History 10mg Tab] Lovastatin 40 mg PO HS 06/06/17 06/06/17 History Ustekinumab [Stelara] 45 mg SQ DIRECTED 06/06/17 06/06/17 History Prescriptions/Medication Reconciliation: Continue Lisinopril/Hydrochlorothiazide [Lisinopril-Hctz 20-12.5 mg Tab] 1 tab PO DAILY Montelukast Sodium [Montelukast 10mg Tab] 10 mg PO DAILY Levothyroxine Sodium [Levothyroxine 88mcg (0.088mg) Tab] 88 mcg PO DAILY Estradiol 2 mg PO DAILY Lovastatin 40 mg PO HS Ustekinumab [Stelara] 45 mg SQ DIRECTED Discontinued Pazopanib H
--- NOTE | 2017-06-09 17:49 | P.DS_ITS ---
General - General Admission date: 06/05/17 Discharge date: 06/07/17 HPI HPI: Ms. Carter is a 51-year-old female with history of metastatic renal cell carcinoma. She started chemo on Votrient 800 mg daily 1 week ago. Her oncologist is at [facility]. She states yesterday she began feeling extremely weak. She was chilling even with numerous layers of clothes, her back was hurting, she was having a severe right-sided headache, and she felt like she could pass out. Her daughter took her blood pressure and it was 100/ 60. States she came to the emergency room for evaluation and treatment. Her lactic acid was slightly elevated. She was admitted. Oncology at [facility] was consulted and they recommended she stop taking her Votrient. Hospital Course Hospital Course: The patient had an abdominal CT showing left renal malignancy with associated left retroperitoneal lymph nodes, hepatic metastasis, and lung opacities. There had been progression of the primary and metastatic lesions when compared to the previous exam. She had a CXR showing metastatic disease with multiple pulmonary nodules and mediastinal and hilar adenopathy. These findings were slightly worse than when compared to the previous exam. She had a head CT showing nothing acute. She was rehydrated and her labs and symptoms improved. She was stable to be discharged home and will f/u in the office. Will contact patient's oncologist about when to resume her chemotherapy treatment. Objective Vital signs: Temp Pulse Resp BP Pulse Ox 98.7 F 72 18 134/76 97 06/07/17 07:58 06/07/17 07:58 06/07/17 07:58 06/07/17 07:58 06/07/17 07:58 Narrative: - Constitutional Comments: Does not appear to feel well - *Routine HEENT Exam Head: Present: normocephalic, atraumatic Eye: Present: EOMI, PERRL ENT: Present: mucous membranes moist - *Routine Neck Exam Present: supple, full ROM - *Routine Respiratory Exam Present: CTA bilaterally - *Routine Cardiovascular Exam Present: RRR - *Routine Abdominal Exam Present: soft, normoactive bowel sounds, tenderness (epigastric area) - *Routine Extremities Exam Absent: edema - *Routine Skin Exam Present: intact - *Routine Neurological Exam Present: alert, oriented X3 DS: Diagnosis - Discharge Diagnosis (1) Syncope, near Status: Acute (2) Adverse drug effect Status: Acute (3) Elevated lactic acid level Status: Resolved (4) Renal insufficiency Status: Resolved (5) Renal cancer Status: Chronic (6) Hypertension Status: Chronic (7) Hyperlipidemia Status: Chronic (8) Hypothyroid Status: Chronic Discharge Plan - Patient Discharge Instructions ACTIVITY: Continue current activity DIET: continue same diet Patient Instructions: DI for Syncope in Adults (Fainting) - Follow up Plan Follow up with: Guillaume Toro MD [Primary Care Provider] - 06/11/17 Disposition: Home, Self-Nursing Home Medications: Home Medications Medication Instructions Recorded Confirmed Type Estradiol 2 mg PO DAILY 06/05/17 06/05/17 History Levothyroxine Sodium 88 mcg PO DAILY 06/05/17 06/05/17 History [Levothyroxine 88mcg (0.088mg) Tab] Lisinopril/Hydrochlorothiazide 1 tab PO DAILY 06/05/17 06/05/17 History [Lisinopril-Hctz 20-12.5 mg Tab] Montelukast Sodium [Montelukast 10 mg PO DAILY
== END 2017-06-07 10:30 | disposition home or self-care (01) ==
LOC: ER 22:40 → 2ND 23:10
PROVIDERS: Admitting Provider Family Medicine; Emergency Provider Emergency Medicine; Family Provider Family Medicine; PCP Family Medicine; Visit Provider Family Medicine
DX: R11.2 Nausea with vomiting, unspecified (principal); R55 Syncope and collapse; I10 Essential (primary) hypertension; C64.2 Malignant neoplasm of left kidney, except renal pelvis; C77.2 Secondary and unspecified malignant neoplasm of intra-abdominal lymph nodes; C78.00 Secondary malignant neoplasm of unspecified lung; C78.7 Secondary malignant neoplasm of liver and intrahepatic bile duct; T45.1X5A Adverse effect of antineoplastic and immunosuppressive drugs, initial encounter
CPT/HCPCS: 36415; 70450; 71046; 74176; 80048; 80053; 81001; 82150; 83605; 83690; 83735; 85025; 87040; 87086; 87275; 87276; 96365; 96366; 96374; 96375; 99285; G0378; J2405

== ENCOUNTER 2017-06-22 18:01 | Observation (INO) | payer BC, SELFPAY ==
[2017-06-22] VITALS (7 sets, daily range): BP systolic 93–115; BP diastolic 58–71; PULSE 85–97; RESP 14–22; TEMP 36.7–37; O2SAT 94–98; BMI 26.6; BMI 27.8
--- NOTE | 2017-06-22 18:07 | HMH.EDGENADL ---
ED Disposition Condition on Discharge: Good - Critical Care Critical Care Time: No <PlacidoChin jeffries - Last Filed: 06/22/17 20:02> <César Mccloud - Last Filed: 06/22/17 21:35> Clinical Impression: Chest pain Qualifiers: Chest pain type: precordial pain Qualified Code(s): R07.2 - Precordial pain Renal cancer Qualifiers: Laterality: unspecified laterality Qualified Code(s): C64.9 - Malignant neoplasm of unspecified kidney, except renal pelvis Disposition: Still a Patient Referrals: Guillaume Toro MD [Primary Care Provider] - Attestation: On 06/22/17, the high probability of a clinically significant, sudden or life threatening deterioration of the following system(s) required my full and direct attention, intervention and personal management. The time I documented below is in addition to time spent performing reported procedures but includes the following listed in this critical care notation. Medical Decision Making - Edson Inquiry Pt receiving controlled substance: No - Lab Data Result diagrams: 06/22/17 18:15 06/22/17 18:15 - Radiology Data #1 Image(s): Chest Image Reviewed: Yes I reviewed the patient's radiology image <Chin Britt - Last Filed: 06/22/17 20:02> - Lab Data Result diagrams: 06/22/17 18:15 06/22/17 18:15 - Physician Consults Physician Consulted: mayelin Time: 21:35 Reason -: Admission <César Mccloud - Last Filed: 06/22/17 21:35> Vital Signs: 06/22/17 18:02 06/22/17 19:14 06/22/17 19:21 Temperature 98.3 F Temperature Source Oral Pulse Rate [Right Brachial] 97 H 95 H 93 H Respiratory Rate 18 14 16 Blood Pressure [Right Arm] 106/64 93/58 109/66 Blood Pressure Mean [Right Arm] 78 69 80 Blood Pressure Source [Right Arm] Automatic Cuff Automatic Cuff Automatic Cuff Blood Pressure Position [Right Arm] Sitting Sitting Sitting 02 Sat by Pulse Oximetry 98 96 96 Oxygen Delivery Method Room Air Room Air Room Air - Lab Data Lab Results 06/22/17 18:15: WBC 8.7, RBC 3.96 L, Hgb 10.8 L, Hct 34.1 L, MCV 86.0, MCH 27.4, MCHC 31.9, RDW 14.4, Plt Count 650 H, MPV 7.3 L, Neut % (Auto) 75.1, Lymph % (Auto) 14.1, [place] % (Auto) 8.0, Eos % (Auto) 2.3, Baso % (Auto) 0.4, Neut # (Auto) 6.5, Lymph # (Auto) 1.2, [place] # (Auto) 0.7, Eos # (Auto) 0.2, Baso # (Auto) 0.0 06/22/17 18:15: Sodium 133 L, Potassium 4.7, Chloride 95 L, Carbon Dioxide 29, Anion Gap 13.7, BUN 23 H, Creatinine 0.91, Estimated Creat Clear 82, Estimated GFR 65, Est GFR ( Amer) 78, Glucose 112 H, Calcium 8.9, Total Bilirubin 0.3, AST 17, ALT 12, Alkaline Phosphatase 123 H, Total Creatine Kinase 44, CK-MB (CK-2) < 0.5, CK-MB (CK-2) Rel Index 1.1, Troponin I < 0.02, Total Protein 7.2, Albumin 2.9 L, Globulin 4.3 H, Albumin/Globulin Ratio 0.7 L 06/22/17 18:15: B-Natriuretic Peptide 5 Orders (Tests/Meds): ED MEDICATIONS Discontinued Medications Generic Name Dose Route Start Last Admin Trade Name Freq PRN Reason Stop Dose Admin Aspirin 324 mg 06/22/17 19:00 06/22/17 19:23 Aspirin 81mg Chewable Tablet PO 06/22/17 19:01 324 mg ONCE ONE Administration Sodium Chloride 1,000 mls @ 999 mls/hr 06/22/17 19:30 06/22/17 19:23 Sod Chlor 0.9% 1000ml Bag IV 06/22/17 20:30 999 mls/hr .Q1H1M DINESH Administration Ondansetron HCl 4 mg 06/22/17 19:21 06/22/17 19:23 Zofran 4mg/2ml Vial IV 06/22/17 19:22 4 mg ONCE ONE Administration ORDERS Category Date Time Status CT angio chest Stat Cat Scan 06/22/17 20:00 Taken Chest XR -- portable [XR chest portable] Stat Exams 06/22/17 19:42 Taken - Radiology Data #1 Bilateral hilar enlargement, unchanged. Atelectasis left midlung. Pulmonary nodules. (Chin Britt) - ECG Data Tracing #1 EKG interpreted by Chin Britt MD: Rhythm: sinus Rate: 92 [place]: normal Ectopy: none Conduction: normal ST Segment Changes: none T Wave Changes: none Q Waves: none No evidence of acute ischemia
[2017-06-22 18:57] LABS: Basophils % 0.4 % (0.1-2.0); Eosinophils # 0.2 K/mm3 (0.0-0.4); Eosinophils % 2.3 % (0.1-12.0); Hematocrit 34.1 % (37.0-47.0); Hemoglobin 10.8 g/dL (12.2-16.2); Lymphocytes # 1.2 K/mm3 (0.7-4.5); Lymphocytes % 14.1 K/mm3 (10-50); Mean Corpuscular HGB Conc 31.9 g/dL (31.8-35.4); Mean Corpuscular Hemoglobin 27.4 pg (27.0-31.2); Mean Platelet Volume 7.3 fl (7.4-10.4); Monocytes # 0.7 K/mm3 (0.1-1.0); Neutrophils # 6.5 K/mm3 (1.8-7.8); Neutrophils % 75.1 % (37.0-80.0); Platelet Count 650 K/mm3 (142-424); Red Blood Count 3.96 M/mm3 (4.20-5.40); Red Cell Distribution Width 14.4 % (11.5-17.5); White Blood Count 8.7 K/mm3 (4.8-10.8)
--- NOTE | 2017-06-22 19:42 | XR_ITS ---
XR chest portable HISTORY: ITS.REASON: chest pain ORDERING PHYSICIAN: Guillaume Toro MD PATIENT AGE: 51 years COMPARISON: None available FINDINGS: There is extensive bilateral mediastinal and hilar adenopathy with multiple bilateral pulmonary nodules consistent with metastatic disease. There is patchy increased density in the left lower lung zone and right lung base medially which may be due to superimposed atelectasis or infiltrate. IMPRESSION: Mediastinal and hilar adenopathy with pulmonary metastasis with increase in atelectasis or infiltrate in both lung bases
[2017-06-22 19:51] LABS: Alanine Aminotransferase 12 U/L (12-78); Albumin Level 2.9 gm/dL (3.4-5.0); Albumin/Globulin Ratio 0.7 (1.1-1.8); Alkaline Phosphatase 123 U/L (46-116); Anion Gap 13.7 mEq/L (5-15); Aspartate Amino Transferase 17 U/L (15-37); Bilirubin,Total 0.3 mg/dL (0.2-1.0); Blood Urea Nitrogen 23 mg/dL (7-18); Calcium 8.9 mg/dL (8.5-10.1); Carbon Dioxide 29 mmol/L (21.0-32.0); Chloride 95 mmol/L (98-107); Creatine Kinase 44 U/L (26-192); Creatinine Clearance Estimated 82 mL/min (0-300); Creatinine,Serum 0.91 mg/dL (0.55-1.02); Estimated Glomerular Filt Rate 65 ml/min (>60); GFR (African American) 78 ML/MIN (>60); Globulin 4.3 gm/dl (1.3-3.2); Glucose 112 mg/dL (74-106); Potassium 4.7 mmoL/L (3.5-5.1); Sodium 133 mmol/L (136-145); Total Protein,Serum 7.2 gm/dL (6.4-8.2); Troponin I < 0.02 ng/ml (0.00-0.06)
[2017-06-22 19:53] LABS: CKMB Relative Index 1.1 U/L (0-4.0); Creatine Kinase MB < 0.5 ng/ml (0.0-3.6)
--- NOTE | 2017-06-22 20:00 | CT_ITS ---
CT angio chest HISTORY: Chest pain with shortness of air, lung cancer ITS.REASON: chest pain, cancer, r/o pe ORDERING PHYSICIAN: Guillaume Toro MD PATIENT AGE: 51 years TECHNIQUE: Axial images obtained following the administration of 75 mL of Isovue 370 . Sagittal, and coronal reformatted images are also generated and reviewed. All CT scans at the facility use one or more dose reduction, viz: automated exposure control; ma/kV adjustment per patient size (including targeted exams where dose is matched to indication; i.e. head); or iterative reconstruction technique. COMPARISON: 04/17/2017 FINDINGS: There is extensive bulky mediastinal and bilateral hilar adenopathy which is more prominent on today's exam than when compared to the previous study. Left lower neck adenopathy is noted with mild tracheal shift toward the right. There are multiple bilateral pulmonary nodules which have increased in size and number compared to the previous exam. There is notable encasement of the right and left Central airways with worsening luminal narrowing and also notable casement of the right and left main pulmonary arteries with progression of vessel luminal narrowing. Atelectasis is present in the right upper lobe. There are atelectatic changes in both lower lobes as well as the right middle lobe and lingula. No effusions. No evidence of pulmonary embolus or aortic aneurysm or dissection. Upper abdominal images once again show peripheral enhancing lesions in the right hepatic lobe posteriorly which isn't increased in size measuring 3.5 cm previously 2.7 cm and the right hepatic lobe anteriorly also increased in size. Large left retroperitoneal mass once again noted incompletely imaged measuring up to 9.2 cm in AP dimension previously 7.9 cm. IMPRESSION: 1. No evidence of pulmonary was. 2. Worsening mediastinal and bilateral hilar adenopathy with progression of central airway and pulmonary arterial compression 3. Progression of pulmonary and hepatic metastasis. 4. New areas of airspace disease consistent with atelectasis in both lungs
[2017-06-23] VITALS (9 sets, daily range): BP systolic 92–131; BP diastolic 53–79; PULSE 70–101; RESP 18–20; TEMP 36.6–36.9; O2SAT 91–97
[2017-06-23 01:25] LABS: Troponin I < 0.02 ng/ml (0.00-0.06)
--- NOTE | 2017-06-23 05:25 | PC.NURSE ---
Since admission pt has rested well with no complaints of pain, only complaint is that the oxygen was drying her nares out, humidification applied, pt tolerating 2 L NC well. BS active in all 4 qauds. Lung sounds diminished t/o. VSS. NSR on air sampling and monitoring. No acute distress noted. Will continue to monitor.
[2017-06-23 07:02] LABS: Eosinophils # 0.2 K/mm3 (0.0-0.4); Lymphocytes # 1.1 K/mm3 (0.7-4.5); Mean Corpuscular Volume 87.2 fl (81-99); Monocytes # 0.6 K/mm3 (0.1-1.0)
[2017-06-23 07:10] LABS: Basophils % 0.5 % (0.1-2.0); Eosinophils % 3.1 % (0.1-12.0); Hematocrit 31.9 % (37.0-47.0); Lymphocytes % 13.8 K/mm3 (10-50); Mean Corpuscular HGB Conc 30.7 g/dL (31.8-35.4); Mean Corpuscular Hemoglobin 26.8 pg (27.0-31.2); Mean Platelet Volume 7.2 fl (7.4-10.4); Monocytes % 8.2 % (1.7-9.3); Neutrophils # 5.7 K/mm3 (1.8-7.8); Neutrophils % 74.4 % (37.0-80.0); Platelet Count 561 K/mm3 (142-424); Red Blood Count 3.66 M/mm3 (4.20-5.40); Red Cell Distribution Width 14.3 % (11.5-17.5); White Blood Count 7.7 K/mm3 (4.8-10.8)
[2017-06-23 07:14] LABS: Anion Gap 9.2 mEq/L (5-15); Blood Urea Nitrogen 18 mg/dL (7-18); Carbon Dioxide 30 mmol/L (21.0-32.0); Chloride 100 mmol/L (98-107); Creatinine Clearance Estimated 107 mL/min (0-300); Creatinine,Serum 0.73 mg/dL (0.55-1.02); Estimated Glomerular Filt Rate 83 ml/min (>60); GFR (African American) 101 ML/MIN (>60); Glucose 104 mg/dL (74-106); Potassium 4.2 mmoL/L (3.5-5.1); Sodium 135 mmol/L (136-145); Troponin I < 0.02 ng/ml (0.00-0.06)
[2017-06-23 07:20] LABS: Hemoglobin 9.8 g/dL (12.2-16.2)
--- NOTE | 2017-06-23 07:27 | PC.NURSE ---
report to kellee bhat rn
--- NOTE | 2017-06-23 10:06 | HMH.HP ---
*Admission Date: 06/23/17 *Chief complaint: Chest pain *History of present illness: 51 year old female with a history of metastatic renal cell carcinoma presented to [facility] ER last night with sudden onset mid sternal chest pain. Patient states pain started while she was at rest and was rated at 9/10 in severity. The pain radiated to her jaw and was associated with shortness of breath. Her blood pressure medication was recently stopped due to hypotension and dehydration and she thought her BP may have been high so she took a dose of medication, Lisinopril-HCT, but did not get any relief from her symptoms. [facility] History I have reviewed the patient's past medical history: Yes Medical History: Reports:: Cancer (Lung, renal and liver), Hyperlipidemia, Hypertension Denies:: Congestive Heart Failure, Coronary Artery Disease, Diabetes Mellitus Type 1, Diabetes Mellitus Type 2, MRSA, Seizures Other Medical History: Reports: Blood Transfusion Reaction, Chemotherapy, Hypothyroidism Other Surgeries: Yes: , Hysterectomy-Total Amputation: No Fractures: No - *Social History Educational Level: Completed College Smoking Status: Former smoker Alcohol Intake: never Occupational Status: employed Housing: house Household Members: spouse, children - Psychiatric History Expresses thoughts of harming self/others: None Suicide Plan Description: No Plan *Family Hx:: Cancer, Heart Attack, Hypertension, Stroke Review of Systems - Constitutional Reports anorexia - Eyes Reports blurry vision - ENT Denies change in voice - *Cardiovascular Denies irregular heart rhythm, Denies leg swelling - *Respiratory Reports cough, Reports shortness of breath - *Gastrointestinal Reports nausea, Denies abdominal pain - *Genitourinary Denies abnormal vaginal bleeding - *Musculoskeletal Denies joint pain - Integumentary/Breasts Denies itching - *Neurologic Denies abnormal speech - Psychiatric Reports depression (over cancer diagnosis) Meds Home Medications Medication Instructions Recorded Confirmed Type Estradiol 2 mg PO DAILY 06/05/17 06/22/17 History Levothyroxine Sodium 88 mcg PO DAILY 06/05/17 06/22/17 History [Levothyroxine 88mcg (0.088mg) Tab] Montelukast Sodium [Montelukast 10 mg PO DAILY 06/05/17 06/22/17 History 10mg Tab] Lovastatin 40 mg PO HS 06/06/17 06/22/17 History Ustekinumab [Stelara] 45 mg SQ DIRECTED 06/06/17 06/22/17 History Allergies Allergy/AdvReac Type Severity Reaction Status Date / Time adalimumab [From Humira] Allergy Severe Rash Verified 06/05/17 20:36 Exam Vital signs and Labs for Last 24 Hours: Temp Pulse Resp BP Pulse Ox 98.1 F 92 H 18 100/56 97 06/23/17 07:34 06/23/17 07:34 06/23/17 07:34 06/23/17 07:34 06/23/17 07:34 Laboratory Results - last 24 hr 06/23/17 00:55: Troponin I < 0.02 06/23/17 06:40: WBC 7.7, RBC 3.66 L, Hgb 9.8 L, Hct 31.9 L, MCV 87.2, MCH 26.8 L, MCHC 30.7 L, RDW 14.3, Plt Count 561 H, MPV 7.2 L, Neut % (Auto) 74.4, Lymph % (Auto) 13.8, [place] % (Auto) 8.2, Eos % (Auto) 3.1, Baso % (Auto) 0.5, Neut # (Auto) 5.7, Lymph # (Auto) 1.1, [place] # (Auto) 0.6, Eos # (Auto) 0.2, Baso # (Auto) 0.0 06/23/17 06:40: Sodium 135 L, Potassium 4.2, Chloride 100, Carbon Dioxide 30, Anion Gap 9.2, BUN 18, Creatinine 0.73, Estimated Creat Clear 107, Estimated GFR 83, Est GFR ( Amer) 101 D, Glucose 104, Troponin I < 0.02 Vital Signs Temp Pulse Pulse Resp BP BP Pulse Ox 06/23/17 07:34 98.1 F 92 H 18 100/56 97 06/23/17 04:00 70 06/23/17 03:52 97.9 F 80 20 92/53 96 06/23/17 00:00 98.3 F 90 82 20 99/56 97 06/22/17 23:40 94 L 06/22/17 22:41 98.1 F 94 H 22 115/71 94 L 06/22/17 22:23 85 06/22/17 21:52 98.6 F 85 18 103/70 03/23/18 19:21 93 H 16 109/66 96 06/22/17 19:14 95 H 14 93/58 96 06/22/17 18:02 98.3 F 97 H 18 106/64 98 Intake and Output 06/22/17 06/23/17
--- NOTE | 2017-06-23 10:10 | P.HP_ITS ---
*Admission Date: 06/23/17 *Chief complaint: Chest pain *History of present illness: 51 year old female with a history of metastatic renal cell carcinoma presented to [facility] ER last night with sudden onset mid sternal chest pain. Patient states pain started while she was at rest and was rated at 9/10 in severity. The pain radiated to her jaw and was associated with shortness of breath. Her blood pressure medication was recently stopped due to hypotension and dehydration and she thought her BP may have been high so she took a dose of medication, Lisinopril-HCT, but did not get any relief from her symptoms. [facility] History I have reviewed the patient's past medical history: Yes Medical History: Reports:: Cancer (Lung, renal and liver), Hyperlipidemia, Hypertension Denies:: Congestive Heart Failure, Coronary Artery Disease, Diabetes Mellitus Type 1, Diabetes Mellitus Type 2, MRSA, Seizures Other Medical History: Reports: Blood Transfusion Reaction, Chemotherapy, Hypothyroidism Other Surgeries: Yes: , Hysterectomy-Total Amputation: No Fractures: No - *Social History Educational Level: Completed College Smoking Status: Former smoker Alcohol Intake: never Occupational Status: employed Housing: house Household Members: spouse, children - Psychiatric History Expresses thoughts of harming self/others: None Suicide Plan Description: No Plan *Family Hx:: Cancer, Heart Attack, Hypertension, Stroke Review of Systems - Constitutional Reports anorexia - Eyes Reports blurry vision - ENT Denies change in voice - *Cardiovascular Denies irregular heart rhythm, Denies leg swelling - *Respiratory Reports cough, Reports shortness of breath - *Gastrointestinal Reports nausea, Denies abdominal pain - *Genitourinary Denies abnormal vaginal bleeding - *Musculoskeletal Denies joint pain - Integumentary/Breasts Denies itching - *Neurologic Denies abnormal speech - Psychiatric Reports depression (over cancer diagnosis) Meds Home Medications Medication Instructions Recorded Confirmed Type Estradiol 2 mg PO DAILY 06/05/17 06/22/17 History Levothyroxine Sodium 88 mcg PO DAILY 06/05/17 06/22/17 History [Levothyroxine 88mcg (0.088mg) Tab] Montelukast Sodium [Montelukast 10 mg PO DAILY 06/05/17 06/22/17 History 10mg Tab] Lovastatin 40 mg PO HS 06/06/17 06/22/17 History Ustekinumab [Stelara] 45 mg SQ DIRECTED 06/06/17 06/22/17 History Allergies Allergy/AdvReac Type Severity Reaction Status Date / Time adalimumab [From Humira] Allergy Severe Rash Verified 06/05/17 20:36 Exam Vital signs and Labs for Last 24 Hours: Temp Pulse Resp BP Pulse Ox 98.1 F 92 H 18 100/56 97 06/23/17 07:34 06/23/17 07:34 06/23/17 07:34 06/23/17 07:34 06/23/17 07:34 Laboratory Results - last 24 hr 06/23/17 00:55: Troponin I < 0.02 06/23/17 06:40: WBC 7.7, RBC 3.66 L, Hgb 9.8 L, Hct 31.9 L, MCV 87.2, MCH 26.8 L , MCHC 30.7 L, RDW 14.3, Plt Count 561 H, MPV 7.2 L, Neut % (Auto) 74.4, Lymph % (Auto) 13.8, [place] % (Auto) 8.2, Eos % (Auto) 3.1, Baso % (Auto) 0.5, Neut # ( Auto) 5.7, Lymph # (Auto) 1.1, [place] # (Auto) 0.6, Eos # (Auto) 0.2, Baso # (Auto ) 0.0 06/23/17 06:40: Sodium 135 L, Potassium 4.2, Chloride 100, Carbon Dioxide 30, Anion Gap 9.2, BUN 18, Creatinine 0.73, Estimated Creat Clear 107, Estimated GFR 83, Est GFR ( Amer) 101 D, Glucose 104, Troponin I < 0.02
--- NOTE | 2017-06-23 11:18 | HMH.PHAVTE ---
[facility] Pharmacy VTE Monitoring - Patient Demographics Admission date: 06/22/17 Report Date: 06/23/17 Time: 11:18 Allergies/Adverse Reactions: Patient Allergies adalimumab [From Humira] Allergy (Severe, Verified 06/05/17 20:36) Rash Height: 1.65 m Weight: 75.778 kg Patient Problems: Current Active Problems Chest pain (Acute) Anemia (Acute) Widespread metastatic malignant neoplastic disease (Acute) Metastatic renal cell carcinoma (Acute) - VTE Risk Labs: VTE Related Lab Results Hgb 9.8 g/dL (12.2-16.2) L 06/23/17 06:40 Hct 31.9 % (37.0-47.0) L 06/23/17 06:40 Plt Count 561 K/mm3 (142-424) H 06/23/17 06:40 BUN 18 mg/dL (7-18) 06/23/17 06:40 Creatinine 0.73 mg/dL (0.55-1.02) 06/23/17 06:40 Estimated Creat Clear 107 mL/min (0-300) 06/23/17 06:40 Was VTE Risk Assessment Performed: Yes VTE Score: 7 VTE Risk Level: Moderate Risk - Prophylaxis VTE Prophylaxis Ordered?: Yes Types of VTE Prophylaxis: TEDS Knee High Location of Applied Device: Bilateral Lower Extremeties - VTE Diagnosis Confirmed Treatment or plan recommended: Continue Current Treatment
--- NOTE | 2017-06-24 03:28 | PC.NURSE ---
PT HAS RESTED WELL THIS SHIFT. FAMILY AT BEDSIDE THROUGHOUT SHIFT. NO CHANGE FROM PREVIOUS ASSESSMENT. PT DENIES PAIN. NO COMPLAINTS VOICED. NO S/S OF DISTRESS NOTED. LUNG SOUNDS DIMINISHED THROUGHOUT. BOWEL SOUNDS ACTIVE IN ALL 4 QUADS. PT REFUSED 2LNC, STATES IT DOES NOT HELP ME. O2 SATURATION MAINTAINS IN MID 90'S ON ROOM AIR. VSS. SAFETY MEASURES IN PLACE. CALL LIGHT WITHIN REACH, WILL CONTINUE TO MONITOR.
[2017-06-24 04:00] VITALS: BP 110/68; PULSE 92; RESP 20; TEMP 37.1; O2SAT 92
[2017-06-24 07:41] VITALS: BP 113/64; PULSE 99; RESP 18; TEMP 37; O2SAT 93
[2017-06-24 08:44] VITALS: PULSE 94; O2SAT 92
--- NOTE | 2017-06-24 09:02 | P.PN_ITS ---
Internal Medicine - PN: Subj *Date: 06/24/17 *Time: 08:59 Interval history: Patient feels better today, no chest pain, wants to go home. Exam Vital signs and Labs for Last 24 Hours: Temp Pulse Resp BP Pulse Ox 98.6 F 94 H 18 113/64 92 L 06/24/17 07:41 06/24/17 08:44 06/24/17 07:41 06/24/17 07:41 06/24/17 08:44 I & O for Last 24 hours: Intake & Output 06/21/17 06/22/17 06/23/17 06/24/17 11:59 11:59 11:59 11:59 Intake Total 508 / 508 3386 / 3386 Output Total 1000 / 1000 1999 Balance -492 / -492 1386 / 1386 Weight 167 lb 0.99 oz 166 lb 3.657 oz - Constitutional no acute distress - *Routine HEENT Exam ENT: Present: mucous membranes moist - *Routine Respiratory Exam Present: CTA bilaterally - *Routine Cardiovascular Exam Present: RRR - *Routine Extremities Exam Absent: edema Assessment and Plan (1) Chest pain Current visit: Yes Status: Acute Qualifiers: Chest pain type: precordial pain Qualified Code(s): R07.2 - Precordial pain Category: Medical Code(s): R07.9 - Chest pain, unspecified (2) Bronchitis Current visit: Yes Status: Acute Category: Medical Code(s): J40 - Bronchitis, not specified as acute or chronic (3) Metastatic renal cell carcinoma Current visit: Yes Status: Acute Category: Medical Code(s): C64.9 - Malignant neoplasm of unspecified kidney, except renal pelvis (4) Anemia Current visit: Yes Status: Acute Category: Medical Code(s): D64.9 - Anemia , unspecified - Assessment and plan all Dx Assessment and Plan for all problems:: OK for discharge today, will continue Omnicef and change albuterol to an MDI.
--- NOTE | 2017-06-24 11:44 | HMH.DCSUM ---
General - General Admission date: 06/22/17 Discharge date: 06/24/17 HPI HPI: 51 year old female with a history of metastatic renal cell carcinoma presented to [facility] ER last night with sudden onset mid sternal chest pain. Patient states pain started while she was at rest and was rated at 9/10 in severity. The pain radiated to her jaw and was associated with shortness of breath. Her blood pressure medication was recently stopped due to hypotension and dehydration and she thought her BP may have been high so she took a dose of medication, Lisinopril-HCT, but did not get any relief from her symptoms. Hospital Course Hospital Course: CT of the chest showed metastatic disease present, no pulmonary embolism or pneumonia was seen. An [place] was ruled out by enzymes. Patient seemed to have bronchitis. She was started on antibiotics and nebs and her supplemental O2 was weaned. Her CP resolved and she began feeling better. She was stable to be discharged home on Omnicef and an albuterol MDI. Objective Vital signs: Temp Pulse Resp BP Pulse Ox 98.6 F 94 H 18 113/64 92 L 06/24/17 07:41 06/24/17 08:44 06/24/17 07:41 06/24/17 07:41 06/24/17 08:44 Narrative: - Constitutional no acute distress - *Routine HEENT Exam Head: Present: normocephalic Eye: Present: PERRL ENT: Present: mucous membranes moist - *Routine Respiratory Exam Present: CTA bilaterally - *Routine Cardiovascular Exam Present: RRR - *Routine Abdominal Exam Present: soft, normoactive bowel sounds. Absent: tenderness, distended - *Routine Extremities Exam Absent: cyanosis, clubbing, edema - *Routine Skin Exam Present: normal turgor - *Routine Neurological Exam Present: alert, oriented X3 DS: Diagnosis - Discharge Diagnosis (1) Bronchitis Status: Acute (2) Chest pain Status: Acute (3) Metastatic renal cell carcinoma Status: Chronic (4) Widespread metastatic malignant neoplastic disease Status: Chronic (5) Hyperlipidemia Status: Chronic (6) Hypertension Status: Chronic (7) Hypothyroid Status: Chronic Discharge Plan - Patient Discharge Instructions ACTIVITY: Continue current activity DIET: continue same diet Patient Instructions: DI for Acute Bronchitis - Follow up Plan Follow up with: Guillaume Toro MD [Primary Care Provider] - 07/09/17 Disposition: Home, Self-Custodial Medications: Home Medications Medication Instructions Recorded Confirmed Type Estradiol 2 mg PO DAILY 06/05/17 06/22/17 History Levothyroxine Sodium 88 mcg PO DAILY 06/05/17 06/22/17 History [Levothyroxine 88mcg (0.088mg) Tab] Montelukast Sodium [Montelukast 10 mg PO DAILY 06/05/17 06/22/17 History 10mg Tab] Lovastatin 40 mg PO HS 06/06/17 06/22/17 History Ustekinumab [Stelara] 45 mg SQ DIRECTED 06/06/17 06/22/17 History Ibuprofen [Ibuprofen 800mg Tab] 800 mg PO Q8HP PRN 06/23/17 06/23/17 History Oxycodone HCl [OxyIR 5mg tablet] 5 mg PO QIDP PRN 06/23/17 06/23/17 History Prescriptions/Medication Reconciliation: New Albuterol Sulfate [Albuterol HFA Inhaler] 1 - 2 puffs IH Q4-6H PRN #1 inh PRN Reason: Shortness Of Breath Or Wheezing Cefdinir [Omnicef 300mg Capsule] 300 mg PO BID #20 cap Continue Montelukast Sodium [Montelukast 10mg Tab] 10 mg PO DAILY Levothyroxine Sodium [Levothyroxine 88mcg (0.088mg) Tab] 88 mcg PO DAILY Estradiol 2 mg PO DAILY Lovastatin 40 mg PO HS Ustekinumab [Stelara] 45 mg SQ DIRECTED Oxycodone HCl [OxyIR 5mg tablet] 5 mg PO QIDP PRN PRN Reason: PAIN Ibuprofen [Ibuprofen 800mg Tab] 800 mg PO Q8HP PRN PRN Reason: Moderate Pain Discontinued Lisinopril/Hydrochlorothiazide [Lisinopril-Hctz 20-12.5 mg Tab] 1 tab PO DAILY
--- NOTE | 2017-06-24 11:47 | P.DS_ITS ---
General - General Admission date: 06/22/17 Discharge date: 06/24/17 HPI HPI: 51 year old female with a history of metastatic renal cell carcinoma presented to [facility] ER last night with sudden onset mid sternal chest pain. Patient states pain started while she was at rest and was rated at 9/10 in severity. The pain radiated to her jaw and was associated with shortness of breath. Her blood pressure medication was recently stopped due to hypotension and dehydration and she thought her BP may have been high so she took a dose of medication, Lisinopril-HCT, but did not get any relief from her symptoms. Hospital Course Hospital Course: CT of the chest showed metastatic disease present, no pulmonary embolism or pneumonia was seen. An [place] was ruled out by enzymes. Patient seemed to have bronchitis. She was started on antibiotics and nebs and her supplemental O2 was weaned. Her CP resolved and she began feeling better. She was stable to be discharged home on Omnicef and an albuterol MDI. Objective Vital signs: Temp Pulse Resp BP Pulse Ox 98.6 F 94 H 18 113/64 92 L 06/24/17 07:41 06/24/17 08:44 06/24/17 07:41 06/24/17 07:41 06/24/17 08:44 Narrative: - Constitutional no acute distress - *Routine HEENT Exam Head: Present: normocephalic Eye: Present: PERRL ENT: Present: mucous membranes moist - *Routine Respiratory Exam Present: CTA bilaterally - *Routine Cardiovascular Exam Present: RRR - *Routine Abdominal Exam Present: soft, normoactive bowel sounds. Absent: tenderness, distended - *Routine Extremities Exam Absent: cyanosis, clubbing, edema - *Routine Skin Exam Present: normal turgor - *Routine Neurological Exam Present: alert, oriented X3 DS: Diagnosis - Discharge Diagnosis (1) Bronchitis Status: Acute (2) Chest pain Status: Acute (3) Metastatic renal cell carcinoma Status: Chronic (4) Widespread metastatic malignant neoplastic disease Status: Chronic (5) Hyperlipidemia Status: Chronic (6) Hypertension Status: Chronic (7) Hypothyroid Status: Chronic Discharge Plan - Patient Discharge Instructions ACTIVITY: Continue current activity DIET: continue same diet Patient Instructions: DI for Acute Bronchitis - Follow up Plan Follow up with: Guillaume Toro MD [Primary Care Provider] - 07/09/17 Disposition: Home, Self-Snf Medications: Home Medications Medication Instructions Recorded Confirmed Type Estradiol 2 mg PO DAILY 06/05/17 06/22/17 History Levothyroxine Sodium 88 mcg PO DAILY 06/05/17 06/22/17 History [Levothyroxine 88mcg (0.088mg) Tab] Montelukast Sodium [Montelukast 10 mg PO DAILY 06/05/17 06/22/17 History 10mg Tab] Lovastatin 40 mg PO HS 06/06/17 06/22/17 History Ustekinumab [Stelara] 45 mg SQ DIRECTED 06/06/17 06/22/17 History Ibuprofen [Ibuprofen 800mg Tab] 800 mg PO Q8HP PRN 06/23/17 06/23/17 History Oxycodone HCl [OxyIR 5mg tablet] 5 mg PO QIDP PRN 06/23/17 06/23/17 History Prescriptions/Medication Reconciliation: New Albuterol Sulfate [Albuterol HFA Inhaler] 1 - 2 puffs IH Q4-6H PRN #1 inh PRN Reason: Shortness Of Breath Or Wheezing Cefdinir [Omnicef 300mg Capsule] 300 mg PO BID #20 cap Continue Montelukast Sodium [Montelukast 10mg Tab] 10 mg PO DAILY Levothyroxine Sodium [Levothyroxine 8
== END 2017-06-24 09:54 | disposition home or self-care (01) ==
LOC: ER 20:05 → 2ND 22:38
PROVIDERS: Emergency Medicine; Admitting Provider Family Medicine; Emergency Provider Emergency Medicine; Family Provider Family Medicine; PCP Family Medicine; Visit Provider Family Medicine
DX: J20.9 Acute bronchitis, unspecified (principal); R07.2 Precordial pain; Z79.899 Other long term (current) drug therapy; C34.90 Malignant neoplasm of unspecified part of unspecified bronchus or lung; C78.7 Secondary malignant neoplasm of liver and intrahepatic bile duct; E78.5 Hyperlipidemia, unspecified; I10 Essential (primary) hypertension; E03.9 Hypothyroidism, unspecified; Z90.710 Acquired absence of both cervix and uterus; Z87.891 Personal history of nicotine dependence; C79.00 Secondary malignant neoplasm of unspecified kidney and renal pelvis; Z80.9 Family history of malignant neoplasm, unspecified; Z82.49 Family history of ischemic heart disease and other diseases of the circulatory system; Z82.3 Family history of stroke; Z79.890 Hormone replacement therapy; Z88.8 Allergy status to other drugs, medicaments and biological substances; D64.9 Anemia, unspecified
CPT/HCPCS: 36415; 71045; 71275; 80048; 80053; 82550; 82553; 83880; 84484; 85025; 93005; 94640; 96365; 96374; 96376; 99284; G0378; J2405

== ENCOUNTER → 2017-07-25 11:36 | Outpatient (CLI) | payer BC, SELFPAY ==
--- NOTE | 2017-07-25 11:45 | XR_ITS ---
XR chest 2V HISTORY: Cough, history of renal cell carcinoma ITS.REASON: BRONCHITIS ORDERING PHYSICIAN: DISHA Greene PATIENT AGE: 52 years COMPARISON: 06/22/2017 FINDINGS: Mediastinum is enlarged as before with bilateral hilar adenopathy and multiple bilateral pulmonary nodules consistent with metastasis. Chronic parenchymal opacification is present in the left perihilar region and right lower lobe consistent with atelectatic changes as previously described. The hilar adenopathy may be slightly worse. The degree of magnification is greater on today's exam. IMPRESSION: Mediastinal and hilar adenopathy with pulmonary metastasis. Hilar adenopathy may be slightly worse. Persistent bilateral atelectatic changes.
== END ==
PROVIDERS: PCP Family Medicine; Visit Provider Physician Assistant
DX: J40 Bronchitis, not specified as acute or chronic (principal)
CPT/HCPCS: 71046

== ENCOUNTER 2017-09-22 11:54 | Observation (INO) ==
[2017-09-22 12:57] LABS: Basophils % 0.6 % (0.1-2.0); Eosinophils # 0.2 K/mm3 (0.0-0.4); Eosinophils % 3.4 % (0.1-12.0); Hematocrit 32.2 % (37.0-47.0); Hemoglobin 9.4 g/dL (12.2-16.2); Lymphocytes # 0.4 K/mm3 (0.7-4.5); Lymphocytes % 6.3 K/mm3 (10-50); Mean Corpuscular HGB Conc 29.2 g/dL (31.8-35.4); Mean Corpuscular Hemoglobin 24.4 pg (27.0-31.2); Mean Corpuscular Volume 83.7 fl (81-99); Mean Platelet Volume 8.6 fl (7.4-10.4); Monocytes # 0.6 K/mm3 (0.1-1.0); Monocytes % 8.7 % (1.7-9.3); Neutrophils # 5.5 K/mm3 (1.8-7.8); Platelet Count 530 K/mm3 (142-424); Red Blood Count 3.85 M/mm3 (4.20-5.40); White Blood Count 6.8 K/mm3 (4.8-10.8)
[2017-09-22 13:09] LABS: Bilirubin,Total 0.4 mg/dL (0.2-1.0); Calcium 8.8 mg/dL (8.5-10.1); Phosphorous 3.8 mg/dL (2.4-4.9); Total Protein,Serum 6.9 gm/dL (6.4-8.2)
[2017-09-22 13:10] LABS: Albumin Level 2.5 gm/dL (3.4-5.0); Albumin/Globulin Ratio 0.6 (1.1-1.8); Globulin 4.4 gm/dl (1.3-3.2)
--- NOTE | 2017-09-22 14:15 | History & Physical Report ---
*Admission Date: 09/22/17 *Chief complaint: Vomting with abdominal pain *History of present illness: 52 year old female with a history of metastatic renal cell carcinoma presented to the office of [facility] today complaining of 3 day history of progressively worse nausea and vomiting associated with diffuse abdominal pain. She had taken both Zofran and Phenergan at home but was still vomiting multiple times per day. Emesis consisted mainly of mucous or ingested food and drink. Patient denies fever and chills and diarrhea. [facility] History Medical History: Reports:: Cancer (metastatic renal cell, treated at [facility]), Hyperlipidemia, Hypertension Denies:: Congestive Heart Failure, Coronary Artery Disease, Diabetes Mellitus Type 1, Diabetes Mellitus Type 2, MRSA, Seizures Other Medical History: Reports: Anemia, Blood Transfusion Reaction, Chemotherapy , Hypothyroidism Other Surgeries: Yes: , Hysterectomy-Total Amputation: No Fractures: No - *Social History Smoking Status: Former smoker Tobacco Type: cigarettes #Yrs smoked (if former smoker): 20 Smoking End Date: 2016 Alcohol Intake: never Occupational Status: employed Housing: house Household Members: spouse, children - Psychiatric History Expresses thoughts of harming self/others: None Suicide Plan Description: No Plan *Family Hx:: Cancer, Heart Attack, Hypertension, Stroke Review of Systems - Constitutional Reports anorexia, Reports fatigue, Denies chills, Denies fever(s) - Eyes Denies blurry vision - ENT Denies dizziness - *Cardiovascular Reports chest pain (right side) - *Respiratory Denies cough - *Genitourinary Reports other (blood in urine) - *Musculoskeletal Reports joint pain - Integumentary/Breasts Denies bleeding lesions - *Neurologic Denies seizure-like activity - Endocrine Denies excessive sweating Meds Home Medications Medication Instructions Recorded Confirmed Type Estradiol 2 mg PO DAILY 06/05/17 07/29/17 History Levothyroxine Sodium 118 mcg PO DAILY 06/05/17 07/29/17 History [Levothyroxine 88mcg (0.088mg) Tab] Montelukast Sodium [Montelukast 10 mg PO DAILY 06/05/17 07/29/17 History 10mg Tab] Ustekinumab [Stelara] 45 mg SQ DIRECTED 06/06/17 07/29/17 History Oxycodone HCl [OxyIR 5mg tablet] 5 mg PO QIDP PRN 06/23/17 07/29/17 History Albuterol Sulfate [Proair Hfa 2 puffs IH Q4HP PRN 07/29/17 07/29/17 History 90mcg/puff Inh] Benzonatate [Tessalon Perle 100mg 100 mg PO BIDP PRN 07/29/17 07/29/17 History Cap] Cefdinir [Omnicef 300mg Capsule] 300 mg PO BID 07/29/17 07/29/17 History Morphine Sulfate [Morphine Sulfate 15 mg PO DAILY 07/29/17 07/29/17 History ER 15mg Tab] Omeprazole [Omeprazole 40mg 40 mg PO DAILY 07/29/17 07/29/17 History Capsule] Ondansetron HCl [Zofran 4mg Tab] 4 mg PO Q6HP PRN 07/29/17 07/29/17 History Trazodone HCl 50 mg PO DAILY 07/29/17 07/29/17 History Allergies Allergy/AdvReac Type Severity Reaction Status Date / Time adalimumab [From Humira] Allergy Severe Rash Verified 06/05/17 20:36 Exam Vital signs and Labs for Last 24 Hours: Temp Pulse Resp BP Pulse Ox 99.0 F 74 18 113/72 98 09/22/17 12:30 09/22/17 12:30 09/22/17 12:30 09/22/17 12:30 09/22/17 12:30 Laboratory Results - last 24 hr 09/22/17 12:00: WBC 6.8, RBC 3.85 L, Hgb 9.4 L, Hct 32.2 L, MCV 83.7, MCH 24.4 L , MCHC 29.2 L, RDW 16.0, Plt Count 530 H, MPV 8.6, Neut % (Auto) 81.0 H, Lymph % (Auto) 6.3 L, [place] % (Auto) 8.7, Eos % (Auto) 3.4, Baso % (Auto) 0.6, Neut # ( Auto) 5.5, Lymph # (Auto) 0.4 L, [place] # (Auto) 0.6, Eos # (Auto) 0.2, Baso # ( Auto) 0.0 09/22/17 12:50: Sodium 134 L, Potassium 4.0, Chloride 100, Carbon Dioxide 29, Anion Gap 9.0, BUN 13, Creatinine 0.77, Estimated Creat Clear 88, Estimated GFR 78, Est GFR ( Amer) 95, Glucose 112 H, Calcium 8.8, Phosphorus 3.8, Magnesium 1.9, Total Bilirubin 0.4, AST 12 L, ALT 11 L, Alkaline Phosphatase 110 , Total Protein 6.9, Albumin 2.5 L, Globulin 4.4 H, Albumin/Globulin Ratio 0.6 L I & O for Last 24 hours: Intake & Output 09/20/17 09/21/17 09/22/17 09/23/17 11:59 11:59 11:59 11:59 Weight 147 lb - Constitutional mild distress (appears not to feel well, weight loss evident) - *Routine HEENT Exam ENT: Present: mucous membranes moist - *Routine Neck Exam Present: supple - Routine Chest/Breast/Axilla Exam Chest wall: Present: mass (left supra and infraclavicular masses) - *Routine Respiratory Exam Present: CTA bilaterally - *Routine Cardiovascular Exam Present: RRR - *Routine Abdominal Exam Present: soft, normoactive bowel sounds, tenderness (diffuse to deep palpation) - *Routine Extremities Exam Absent: cyanosis, clubbing, edema - *Routine Skin Exam Present: warm, rash (diffuse hyperpigmented macules on trunk and extremities) - *Routine Neurological Exam Present: alert, oriented X3 H&P: Result - Labs Labs: Short CBC 09/22/17 Range/Units 12:00 WBC 6.8 (4.8-10.8) K/mm3 Hgb 9.4 L (12.2-16.2) g/dL Hct 32.2 L (37.0-47.0) % Plt Count 530 H (142-424) K/mm3 BMP 09/22/17 12:50 Sodium 134 L Potassium 4.0 Chloride 100 Carbon Dioxide 29 BUN 13 Creatinine 0.77 Glucose 112 H Calcium 8.8 Liver Function 09/22/17 Range/Units 12:50 Total Bilirubin 0.4 (0.2-1.0) mg/dL AST 12 L (15-37) U/L ALT 11 L (12-78) U/L Alkaline Phosphatase 110 (46-116) U/L Albumin 2.5 L (3.4-5.0) gm/dL Assessment and Plan (1) Vomiting Current visit: Yes Status: Acute Category: Medical Code(s): R11.10 - Vomiting, unspecified (2) Abdominal pain Current visit: Yes Status: Acute Category: Medical Code(s): R10.9 - Unspecified abdominal pain (3) Anemia Current visit: No Status: Acute Category: Medical Code(s): D64.9 - Anemia , unspecified (4) Metastatic renal cell carcinoma Current visit: No Status: Chronic Category: Medical Code(s): C64.9 - Malignant neoplasm of unspecified kidney, except renal pelvis - Assessment and plan all Dx Assessment and Plan for all problems:: Patient admitted for further evaluation and treatment of her vomiting and abdominal pain. She is current between chemotherapies for her cancer and has not started any new medications recently.
[2017-09-23 08:43] VITALS: BP 111/69
--- NOTE | 2017-09-23 10:07 | Progress Note ---
Internal Medicine - PN: Subj *Date: 09/23/17 *Time: 10:05 Interval history: Patient feels much better today, nausea and abdominal pain have resolved. Exam Vital signs and Labs for Last 24 Hours: Temp Pulse Resp BP Pulse Ox 99.1 F 71 16 111/69 97 09/23/17 08:00 09/23/17 08:00 09/23/17 08:00 09/23/17 08:00 09/23/17 08:00 Laboratory Results - last 24 hr 09/22/17 12:00: WBC 6.8, RBC 3.85 L, Hgb 9.4 L, Hct 32.2 L, MCV 83.7, MCH 24.4 L , MCHC 29.2 L, RDW 16.0, Plt Count 530 H, MPV 8.6, Neut % (Auto) 81.0 H, Lymph % (Auto) 6.3 L, Mingo % (Auto) 8.7, Eos % (Auto) 3.4, Baso % (Auto) 0.6, Neut # ( Auto) 5.5, Lymph # (Auto) 0.4 L, Mingo # (Auto) 0.6, Eos # (Auto) 0.2, Baso # ( Auto) 0.0 09/22/17 12:50: Sodium 134 L, Potassium 4.0, Chloride 100, Carbon Dioxide 29, Anion Gap 9.0, BUN 13, Creatinine 0.77, Estimated Creat Clear 88, Estimated GFR 78, Est GFR ( Amer) 95, Glucose 112 H, Calcium 8.8, Phosphorus 3.8, Magnesium 1.9, Total Bilirubin 0.4, AST 12 L, ALT 11 L, Alkaline Phosphatase 110 , Total Protein 6.9, Albumin 2.5 L, Globulin 4.4 H, Albumin/Globulin Ratio 0.6 L Vital Signs (72 hours) 09/22/17 12:30 09/22/17 16:00 09/22/17 16:08 Temperature 99.0 F 97.7 F Pulse Rate [Right Brachial] 74 80 Respiratory Rate 18 18 Blood Pressure [Right Arm] 113/72 114/69 02 Sat by Pulse Oximetry 98 97 98 09/22/17 20:00 09/23/17 04:00 09/23/17 08:00 Temperature 98.6 F 98.5 F 99.1 F Pulse Rate [Right Brachial] 77 78 71 Respiratory Rate 18 16 16 Blood Pressure [Right Arm] 108/69 108/56 111/69 02 Sat by Pulse Oximetry 96 95 97 I & O for Last 24 hours: Intake & Output 09/20/17 09/21/17 09/22/17 09/23/17 11:59 11:59 11:59 11:59 Intake Total 2581 / 2581 Output Total 300 / 300 Balance 2281 / 2281 Weight 146 lb 15.715 oz - Constitutional no acute distress (appears to feel much better today) - *Routine HEENT Exam ENT: Present: mucous membranes moist - *Routine Respiratory Exam Present: CTA bilaterally - *Routine Cardiovascular Exam Present: RRR - *Routine Abdominal Exam Present: soft, normoactive bowel sounds. Absent: tenderness Assessment and Plan (1) Vomiting Current visit: Yes Status: Acute Category: Medical Code(s): R11.10 - Vomiting, unspecified (2) Abdominal pain Current visit: Yes Status: Acute Category: Medical Code(s): R10.9 - Unspecified abdominal pain (3) Anemia Current visit: No Status: Acute Category: Medical Code(s): D64.9 - Anemia , unspecified (4) Metastatic renal cell carcinoma Current visit: No Status: Chronic Category: Medical Code(s): C64.9 - Malignant neoplasm of unspecified kidney, except renal pelvis - Assessment and plan all Dx Assessment and Plan for all problems:: Patient is doing much better, plan discharge home today.
--- NOTE | 2017-09-24 11:19 | Discharge Summary ---
General - General Admission date:: 09/22/17 Discharge date: 09/23/17 HPI HPI: 52 year old female with a history of metastatic renal cell carcinoma presented to the office of [facility] today complaining of 3 day history of progressively worse nausea and vomiting associated with diffuse abdominal pain. She had taken both Zofran and Phenergan at home but was still vomiting multiple times per day. Emesis consisted mainly of mucous or ingested food and drink. Patient denies fever and chills and diarrhea. Hospital Course Hospital Course: The patient was admitted for further evaluation and treatment of her vomiting and abdominal pain. She was between chemotherapies for her cancer and had not started any new medications recently. She was started on IVF's and antiemetics. By the next day, her nausea and abdominal pain had resolved and she was stable to be discharged home. Objective Vital signs: Temp Pulse Resp BP Pulse Ox 99.1 F 71 16 111/69 97 09/23/17 08:00 09/23/17 08:00 09/23/17 08:00 09/23/17 08:00 09/23/17 08:00 Narrative: - Constitutional mild distress (appears not to feel well, weight loss evident) - *Routine HEENT Exam ENT: Present: mucous membranes moist - *Routine Neck Exam Present: supple - Routine Chest/Breast/Axilla Exam Chest wall: Present: mass (left supra and infraclavicular masses) - *Routine Respiratory Exam Present: CTA bilaterally - *Routine Cardiovascular Exam Present: RRR - *Routine Abdominal Exam Present: soft, normoactive bowel sounds, tenderness (diffuse to deep palpation) - *Routine Extremities Exam Absent: cyanosis, clubbing, edema - *Routine Skin Exam Present: warm, rash (diffuse hyperpigmented macules on trunk and extremities) - *Routine Neurological Exam Present: alert, oriented X3 DS: Diagnosis - Discharge Diagnosis (1) Vomiting Status: Acute (2) Abdominal pain Status: Acute (3) Anemia Status: Acute (4) Metastatic renal cell carcinoma Status: Chronic Discharge Plan - Patient Discharge Instructions ACTIVITY: Continue current activity DIET: continue same diet Patient Instructions: DI for Abdominal Pain-Adult, DI for Vomiting -- Adult - Follow up Plan Unknown provider or service follow up:: Patient to f/u with Dr. Qureshi at [facility]. She already has an appointment for October 18, 2017 Disposition: Home, Self-Custodial Medications: Home Medications Medication Instructions Recorded Confirmed Type Estradiol 2 mg PO DAILY 06/05/17 07/29/17 History Levothyroxine Sodium 118 mcg PO DAILY 06/05/17 07/29/17 History [Levothyroxine 88mcg (0.088mg) Tab] Montelukast Sodium [Montelukast 10 mg PO DAILY 06/05/17 07/29/17 History 10mg Tab] Ustekinumab [Stelara] 45 mg SQ DIRECTED 06/06/17 07/29/17 History Oxycodone HCl [OxyIR 5mg tablet] 5 mg PO QIDP PRN 06/23/17 07/29/17 History Benzonatate [Tessalon Perle 100mg 100 mg PO BIDP PRN 07/29/17 07/29/17 History Cap] Cefdinir [Omnicef 300mg Capsule] 300 mg PO BID 07/29/17 07/29/17 History Morphine Sulfate [Morphine Sulfate 15 mg PO DAILY 07/29/17 07/29/17 History ER 15mg Tab] Omeprazole [Omeprazole 40mg 40 mg PO DAILY 07/29/17 07/29/17 History Capsule] Ondansetron HCl [Zofran 4mg Tab] 4 mg PO Q6HP PRN 07/29/17 07/29/17 History Trazodone HCl 50 mg PO DAILY 07/29/17 07/29/17 History Prescriptions/Medication Reconciliation: Continue Montelukast Sodium [Montelukast 10mg Tab] 10 mg PO DAILY Levothyroxine Sodium [Levothyroxine 88mcg (0.088mg) Tab] 118 mcg PO DAILY Estradiol 2 mg PO DAILY Ustekinumab [Stelara] 45 mg SQ DIRECTED Oxycodone HCl [OxyIR 5mg tablet] 5 mg PO QIDP PRN PRN Reason: PAIN Albuterol Sulfate [Albuterol HFA Inhaler] 1 - 2 puffs IH Q4-6H PRN #1 inh PRN Reason: Shortness Of Breath Or Wheezing Morphine Sulfate [Morphine Sulfate ER 15mg Tab] 15 mg PO DAILY Trazodone HCl 50 mg PO DAILY Omeprazole [Omeprazole 40mg Capsule] 40 mg PO DAILY Benzonatate [Tessalon Perle 100mg Cap] 100 mg PO BIDP PRN PRN Reason: Cough Cefdinir [Omnicef 300mg Capsule] 300 mg PO BID Ondansetron HCl [Zofran 4mg Tab] 4 mg PO Q6HP PRN PRN Reason: Nausea Discontinued Albuterol Sulfate [Proair Hfa 90mcg/puff Inh] 2 puffs IH Q4HP PRN PRN Reason: Shortness Of Breath Or Wheezing
== END 2017-09-23 11:20 | disposition home or self-care (01) ==
LOC: 2ND → INTOOBSV 12:01 → OBSVTOIN 12:01
PROVIDERS: ADMIT Family Medicine; ATTEND Family Medicine
CPT/HCPCS: 36415; 80053; 83735; 84100; 85025; G0378; J2405

== ENCOUNTER 2017-10-26 13:05 | Outpatient (CLI) | payer BC, SELFPAY ==
[2017-10-26 14:02] VITALS: BMI 22.8
--- NOTE | 2017-10-26 14:04 | XR_ITS ---
XR chest portable HISTORY: ITS.REASON: picc placement ORDERING PHYSICIAN: Guillaume Toro MD PATIENT AGE: 52 years COMPARISON: Portable upright chest 06/22/2017 FINDINGS: The cardiomediastinal silhouette and pulmonary vascularity are within normal limits. Again noted is prominent bilateral hilar and superior mediastinal adenopathy. A couple of pulmonary nodules in the right perihilar region. The PICC line is seen ascending the left axillary vein with the tip either in the right atrium or at the junction of the SVC with right atrium. There is no pneumothorax. IMPRESSION: Satisfactory position of PICC line
== END 2017-10-26 14:45 | disposition home or self-care (01) ==
LOC: INF 13:10
PROVIDERS: Family Provider Family Medicine; PCP Family Medicine; Visit Provider Family Medicine
DX: C78.7 Secondary malignant neoplasm of liver and intrahepatic bile duct; C78.1 Secondary malignant neoplasm of mediastinum; C78.01 Secondary malignant neoplasm of right lung; C78.02 Secondary malignant neoplasm of left lung; Z45.2 Encounter for adjustment and management of vascular access device; C64.2 Malignant neoplasm of left kidney, except renal pelvis
CPT/HCPCS: 36569; 71045; C1751

== ENCOUNTER → 2017-12-27 13:33 | Outpatient (CLI) | payer OTHER, BC, SELFPAY ==
[2017-12-27 13:55] LABS: Basophils % 0.7 % (0.1-2.0); Eosinophils # 0.3 K/mm3 (0.0-0.4); Eosinophils % 4.7 % (0.1-12.0); Hematocrit 35.1 % (37.0-47.0); Hemoglobin 10.5 g/dL (12.2-16.2); Lymphocytes # 0.5 K/mm3 (0.7-4.5); Lymphocytes % 8.2 K/mm3 (10-50); Mean Corpuscular HGB Conc 29.9 g/dL (31.8-35.4); Mean Corpuscular Hemoglobin 27.1 pg (27.0-31.2); Mean Corpuscular Volume 90.8 fl (81-99); Mean Platelet Volume 7.7 fl (7.4-10.4); Monocytes # 0.4 K/mm3 (0.1-1.0); Monocytes % 6.9 % (1.7-9.3); Neutrophils # 4.7 K/mm3 (1.8-7.8); Neutrophils % 79.5 % (37.0-80.0); Platelet Count 387 K/mm3 (142-424); Red Blood Count 3.87 M/mm3 (4.20-5.40); Red Cell Distribution Width 15.4 % (11.5-17.5); White Blood Count 5.8 K/mm3 (4.8-10.8)
[2017-12-27 15:19] LABS: Alanine Aminotransferase 14 U/L (12-78); Albumin Level 3.4 gm/dL (3.4-5.0); Alkaline Phosphatase 156 U/L (46-116); Anion Gap 14.2 mEq/L (5-15); Aspartate Amino Transferase 9 U/L (15-37); Bilirubin,Total 0.3 mg/dL (0.2-1.0); Blood Urea Nitrogen 11 mg/dL (7-18); Calcium 9.3 mg/dL (8.5-10.1); Carbon Dioxide 29 mmol/L (21.0-32.0); Chloride 102 mmol/L (98-107); Creatinine,Serum 0.76 mg/dL (0.55-1.02); Estimated Glomerular Filt Rate 79 ml/min (>60); GFR (African American) 96 ML/MIN (>60); Globulin 3.5 gm/dl (1.3-3.2); Glucose 132 mg/dL (74-106); Potassium 4.2 mmoL/L (3.5-5.1); Sodium 141 mmol/L (136-145); Total Protein,Serum 6.9 gm/dL (6.4-8.2)
== END ==
PROVIDERS: PCP Family Medicine; Visit Provider Internal Medicine Medical Oncology
DX: C64.9 Malignant neoplasm of unspecified kidney, except renal pelvis (principal)
CPT/HCPCS: 36415; 80053; 85025

== ENCOUNTER → 2018-01-25 08:46 | Outpatient (CLI) | payer OTHER, BC, SELFPAY ==
--- NOTE | 2018-01-25 08:58 | CT_ITS ---
CT abdomen pelvis w con CLINICAL HISTORY: Known renal cell carcinoma TECHNIQUE: Axial images obtained with sagittal and coronal reformats. All CT scans at the facility use one or more dose reduction, viz: automated exposure control, ma/kV adjustment per patient size (including targeted exams where dose is matched to indication, i.e. head), or iterative reconstruction technique. COMPARISON: CT scan abdomen pelvis without IV or oral contrast 06/05/2017 PROCEDURE: Oral Contrast:Given IV Contrast: 75 ml IV Isovue 370 was injected intravenously. FINDINGS: Lung bases: Multiple noncalcified pulmonary nodules are again noted. The largest nodule right lower lobe measures 1.7 x 1.7 cm showing slight interval enlargement from previous study. The nodule in the right posterior gutter. Now measures 1.3 cm in diameter where as previously it measured 0.2 cm. The other smaller nodules are basely stable. ABDOMEN: Liver: The low density masses seen in the right lobe of the liver have shown marked interval decrease in size from the previous study, largest nodule measures 3.0 cm anterior posterior dimension whereas previously measured 4.7 cm. The superior inferior dimension measures 2.2 cm where as previously it measured 7.3 cm. Gallbladder: Nondistended. No radio opaque stones. Pancreas: No masses or peripancreatic fluid collections. Spleen: Unremarkable. Adrenals: Unremarkable Kidneys/ureters: The large heterogenic mass mid and upper pole left kidney has shown interval decrease in size with anterior posterior dimension measuring 5.9 cm whereas previously measured 9.4 cm. The superior inferior dimension measures 6.1 cm is where as previously measured 10.1 cm. Stomach bowel: Nondistended. No obvious mass or thickening. Peritoneum: No abnormal fluid collections. No obvious inflammatory changes. Lymph nodes: The large retroperitoneal conglomerate toney mass seen on previous study has resolved. Vasculature: No evidence of abdominal aortic aneurysm. No retroperitoneal hemorrhage evident. Bones: No obvious metastatic lesions identified in the visualized portion of the bony skeleton. PELVIS: Reproductive: Post hysterectomy Bladder: Moderately distended with urine, there is no free fluid in the pelvis. Appendix: Not definitely visualize but there are no pericecal inflammatory changes. IMPRESSION: Definite interval improvement in the large left renal cell mass and essentially complete resolution of the large retroperitoneal adenopathy seen on the previous study and interval decrease in size of the liver lesions as mentioned. Slight interval increase in size of 2 pulmonary nodules right lower lobe
--- NOTE | 2018-01-25 08:58 | CT_ITS ---
CT chest w con HISTORY: ITS.REASON: RENAL CELL CANCER ORDERING PHYSICIAN: Luz Marina Abreu MD PATIENT AGE: 52 years COMPARISON: CT abdomen pelvis August 2007 seen in July 2017 Technique:. 75 cc Isovue-370 IV. Helical Axial images obtained. Axial Sagittal and coronal reformatted images are also generated and reviewed. All CT scans at the facility use one or more dose reduction, viz: automated exposure control, ma/kV adjustment per patient size (including targeted exams where dose is matched to indication, i.e. head), or iterative reconstruction technique. FINDINGS: MEDIASTINUM/& HILAR REGIONS Massive bulky confluent mediastinal adenopathy, & hilar adenopathy again noted. Areas of minimal improvement at the hilar regions since July 2017, but with overall slight progression of the mediastinal adenopathy.. .. Right paratracheal nodes very slightly larger;. With Slight progression of a large toney mass right paratracheal/right precarinal region which now measures up to 4.8 cm length x 4.1 cm transverse. The this resides just right of the aortic arch and confluent with the bulky right hilar adenopath Slight progression numerous large nodes AP window- the largest node here measuring 5 cm to 3.5 cm overlying the left pulmonary artery and extending back towards the left ronny where the confluent toney mass here yields slight progressive stretching of EVELYN artery branch.. Subcarinal adenopathy only slightly slightly more evident & extends rightward to become confluent with a bulky right hilar adenopathy. Right hilar bulky adenopathy: perhaps slightly pronounced at the right infrahilar regions.. But Slight improvement at the posterior right suprahilar area.- The latter is associated with improvement of posterior R UL mass density. Left ronny: bulky adenopathy: fairly similar but there is a area which are shown definite improvement at the left suprahilar region leading towards left upper lobe.. Left axillary adenopathy as shown slight progression. Previously one of the largest nodes here measured 2 cm diameter. Today this node measuring up to over 26 mm diameter (sagittal image 74, axial image 19) . LUNG LOPEZ: Numerous pulmonary nodules & lesions again seen bilaterally. Right lung Notable Improvement nodule/ mass at the medial right upper lobe this now partially cavitary. Residual of this mass with associated bronchiectatic changes leading down towards the right ronny and accounts for the improvement posterior right suprahilar region node/mass .. Slight regression of along the minor fissure at the RML. However there is slight progression of a nodular mass just superior to the minor fissure, measuring 11 mm. These features seen on axial image 39 sagittal 22 This also subtle progression of the numerous lung nodules at R UL on axial image 35, 36. The largest of these 8.5 mm just adjacent to the right heart border. The other small nodules at the posterior right lung appears similar if not a minimally larger. Left lung. Scattered numerous small nodules for the most part appear similar. However there is been marked improvement previous 1.5 cm irregular L UL nodule. Previously seen just just anterior to the major fissure on today we see only some minimal wispy residual. Axial image 25. Also significant improvement of a previous 2.4 cm density just lateral to the left hilum which now is quite small and more linear in character. Aorta satisfactory. Heart normal size. Coronary calcification . good enhancement of the pulmonary arteries. The bulky masses at the hilar regions wrapping about pulmonary arteries & yield slightly stretched appearance is similar to the pulmonary artery branches bilaterally but I see no pulmonary embolism.. The airways appear to be very slightly narrowed and mildly co
--- NOTE | 2018-01-25 08:58 | CT_ITS ---
CT head/brain wo/w con COMPARISON: Noncontrast CT scan of brain 06/05/2017 HISTORY: Patient has known renal cell carcinoma TECHNIQUE: Multiple axial scans obtained from base skull to the vertex and were performed without and with IV contrast. FINDINGS: The base of skull is normal, the mastoids are clear. The noncontrast images show no abnormality. There is no bleed. Following injection of IV contrast there is good vascular opacification. There is no evidence of metastatic disease. There is no vascular abnormality. There is no significant cortical atrophy. The bony calvarium appears intact. IMPRESSION: Negative CT scan of brain without and with IV contrast
== END ==
PROVIDERS: PCP Family Medicine; Visit Provider Internal Medicine Medical Oncology
DX: C64.9 Malignant neoplasm of unspecified kidney, except renal pelvis (principal)
CPT/HCPCS: 70470; 71260; 74177; Q9967

== ENCOUNTER → 2018-02-06 13:48 | Outpatient (CLI) | payer BC, SELFPAY ==
[2018-02-06 13:57] VITALS: BMI 21.9
[2018-02-06 14:24] LABS: Basophils % 0.5 % (0.1-2.0); Eosinophils # 0.2 K/mm3 (0.0-0.4); Eosinophils % 3.7 % (0.1-12.0); Hemoglobin 11.5 g/dL (12.2-16.2); Lymphocytes # 0.5 K/mm3 (0.7-4.5); Lymphocytes % 8.2 % (10-50); Mean Corpuscular HGB Conc 31.1 g/dL (31.8-35.4); Mean Corpuscular Hemoglobin 27.3 pg (27.0-31.2); Mean Corpuscular Volume 87.6 fl (81-99); Mean Platelet Volume 6.6 fl (7.4-10.4); Monocytes # 0.5 K/mm3 (0.1-1.0); Monocytes % 7.2 % (1.7-9.3); Neutrophils % 80.4 % (37.0-80.0); Platelet Count 397 K/mm3 (142-424); Red Blood Count 4.22 M/mm3 (4.20-5.40); Red Cell Distribution Width 14.2 % (11.5-17.5); White Blood Count 6.2 K/mm3 (4.8-10.8)
[2018-02-06 14:47] LABS: Alanine Aminotransferase 15 U/L (12-78); Albumin Level 3.7 gm/dL (3.4-5.0); Albumin/Globulin Ratio 0.9 (1.1-1.8); Alkaline Phosphatase 141 U/L (46-116); Anion Gap 12.8 mEq/L (5-15); Aspartate Amino Transferase 12 U/L (15-37); Bilirubin,Total 0.3 mg/dL (0.2-1.0); Blood Urea Nitrogen 15 mg/dL (7-18); Calcium 9.5 mg/dL (8.5-10.1); Carbon Dioxide 31 mmol/L (21.0-32.0); Chloride 100 mmol/L (98-107); Creatinine Clearance Estimated 75 mL/min (0-300); Creatinine,Serum 0.81 mg/dL (0.55-1.02); Estimated Glomerular Filt Rate 74 ml/min (>60); GFR (African American) 89 ML/MIN (>60); Globulin 4.3 gm/dl (1.3-3.2); Glucose 134 mg/dL (74-106); Potassium 3.8 mmoL/L (3.5-5.1); Sodium 140 mmol/L (136-145); Thyroid Stimulating Hormone 58.97 uIU/ml (0.358-3.740)
[2018-02-06 15:24] VITALS: BP 105/71; PULSE 87; RESP 18; TEMP 36.4; O2SAT 97
[2018-02-06 15:54] VITALS: BP 104/61; PULSE 89; RESP 18; O2SAT 98
[2018-02-06 16:05] VITALS: BP 106/66; PULSE 84; RESP 18; O2SAT 97
== END ==
PROVIDERS: Visit Provider Internal Medicine Medical Oncology
DX: Z51.11 Encounter for antineoplastic chemotherapy (principal); C64.9 Malignant neoplasm of unspecified kidney, except renal pelvis; C80.0 Disseminated malignant neoplasm, unspecified
CPT/HCPCS: 80053; 82533; 84443; 85025; 96413; J9299

== ENCOUNTER → 2018-02-07 08:36 | Outpatient (CLI) | payer BC, SELFPAY ==
[2018-02-09 12:13] LABS: Adrenocorticotropic Hormone 55.4 pg/mL (7.2-63.3)
== END ==
PROVIDERS: Visit Provider Internal Medicine Medical Oncology
DX: C64.9 Malignant neoplasm of unspecified kidney, except renal pelvis (principal)
CPT/HCPCS: 36415; 82024

== ENCOUNTER 2018-02-20 13:52 | Outpatient (CLI) | payer BC, SELFPAY ==
[2018-02-20 13:54] VITALS: BMI 21.6
[2018-02-20 14:09] LABS: Basophils # 0.1 K/mm3 (0-0.2); Basophils % 0.9 % (0.1-2.0); Eosinophils # 0.3 K/mm3 (0.0-0.4); Eosinophils % 4.9 % (0.1-12.0); Hemoglobin 11.4 g/dL (12.2-16.2); Lymphocytes # 0.7 K/mm3 (0.7-4.5); Lymphocytes % 10.9 % (10-50); Mean Corpuscular HGB Conc 31.6 g/dL (31.8-35.4); Mean Corpuscular Hemoglobin 27.8 pg (27.0-31.2); Mean Corpuscular Volume 87.9 fl (81-99); Mean Platelet Volume 6.9 fl (7.4-10.4); Monocytes # 0.4 K/mm3 (0.1-1.0); Monocytes % 6.6 % (1.7-9.3); Neutrophils # 5.1 K/mm3 (1.8-7.8); Neutrophils % 76.6 % (37.0-80.0); Platelet Count 372 K/mm3 (142-424); Red Blood Count 4.09 M/mm3 (4.20-5.40); Red Cell Distribution Width 13.9 % (11.5-17.5); White Blood Count 6.6 K/mm3 (4.8-10.8)
[2018-02-20 14:32] LABS: Alanine Aminotransferase 18 U/L (12-78); Albumin Level 3.6 gm/dL (3.4-5.0); Albumin/Globulin Ratio 0.9 (1.1-1.8); Alkaline Phosphatase 150 U/L (46-116); Anion Gap 12.8 mEq/L (5-15); Aspartate Amino Transferase 9 U/L (15-37); Bilirubin,Total 0.2 mg/dL (0.2-1.0); Blood Urea Nitrogen 21 mg/dL (7-18); Calcium 8.9 mg/dL (8.5-10.1); Carbon Dioxide 29 mmol/L (21.0-32.0); Chloride 102 mmol/L (98-107); Creatinine Clearance Estimated 86 mL/min (50-200); Estimated Glomerular Filt Rate 87 ml/min (>60); GFR (African American) 106 ML/MIN (>60); Globulin 4.1 gm/dl (1.3-3.2); Glucose 122 mg/dL (74-106); Potassium 3.8 mmoL/L (3.5-5.1); Sodium 140 mmol/L (136-145); Total Protein,Serum 7.7 gm/dL (6.4-8.2)
[2018-02-20 15:04] VITALS: BP 109/72; PULSE 86; RESP 20; TEMP 36.6; O2SAT 97
[2018-02-20 15:34] VITALS: BP 106/77; PULSE 84; RESP 20; O2SAT 96
[2018-02-20 15:50] VITALS: BP 111/76; PULSE 79; RESP 20; O2SAT 97
== END 2018-02-20 16:00 | disposition home or self-care (01) ==
LOC: INF 13:52
PROVIDERS: Visit Provider Internal Medicine Medical Oncology
DX: Z51.11 Encounter for antineoplastic chemotherapy (principal); C64.9 Malignant neoplasm of unspecified kidney, except renal pelvis; C80.0 Disseminated malignant neoplasm, unspecified
CPT/HCPCS: 80053; 85025; 96413; J9299

== ENCOUNTER 2018-03-11 09:10 | Outpatient (CLI) | payer BC, SELFPAY ==
[2018-03-11 09:07] VITALS: BMI 21.9
[2018-03-11 09:34] LABS: Basophils # 0.1 K/mm3 (0-0.2); Basophils % 1.1 % (0.1-2.0); Eosinophils # 0.3 K/mm3 (0.0-0.4); Hematocrit 35.9 % (37.0-47.0); Hemoglobin 11.1 g/dL (12.2-16.2); Lymphocytes # 0.6 K/mm3 (0.7-4.5); Lymphocytes % 11.2 % (10-50); Mean Corpuscular Hemoglobin 26.6 pg (27.0-31.2); Mean Corpuscular Volume 85.9 fl (81-99); Mean Platelet Volume 7.4 fl (7.4-10.4); Monocytes # 0.3 K/mm3 (0.1-1.0); Monocytes % 6.4 % (1.7-9.3); Neutrophils # 3.9 K/mm3 (1.8-7.8); Neutrophils % 75.3 % (37.0-80.0); Platelet Count 378 K/mm3 (142-424); Red Blood Count 4.18 M/mm3 (4.20-5.40); Red Cell Distribution Width 14.1 % (11.5-17.5); White Blood Count 5.1 K/mm3 (4.8-10.8)
[2018-03-11 09:56] LABS: Anion Gap 9.7 mEq/L (5-15); Bilirubin,Total 0.3 mg/dL (0.2-1.0); Blood Urea Nitrogen 14 mg/dL (7-18); Calcium 9.3 mg/dL (8.5-10.1); Carbon Dioxide 29 mmol/L (21.0-32.0); Chloride 100 mmol/L (98-107); Creatinine Clearance Estimated 88 mL/min (50-200); Creatinine,Serum 0.69 mg/dL (0.55-1.02); Estimated Glomerular Filt Rate 89 ml/min (>60); GFR (African American) 107 ML/MIN (>60); Glucose 124 mg/dL (74-106); Sodium 139 mmol/L (136-145)
[2018-03-11 09:57] LABS: Alanine Aminotransferase 17 U/L (12-78); Albumin Level 3.6 gm/dL (3.4-5.0); Albumin/Globulin Ratio 0.8 (1.1-1.8); Alkaline Phosphatase 153 U/L (46-116); Aspartate Amino Transferase 9 U/L (15-37); Globulin 4.3 gm/dl (1.3-3.2); Total Protein,Serum 7.9 gm/dL (6.4-8.2)
[2018-03-11 10:01] LABS: Thyroid Stimulating Hormone 99.51 uIU/ml (0.358-3.740)
[2018-03-11 10:25] VITALS: BP 115/71; PULSE 79; RESP 18; TEMP 36.5; O2SAT 98
[2018-03-11 10:55] VITALS: BP 110/68; PULSE 81; RESP 18; O2SAT 97
[2018-03-11 11:15] VITALS: BP 116/73; PULSE 83; RESP 18; O2SAT 97
[2018-03-13 07:02] LABS: Adrenocorticotropic Hormone 23.8 pg/mL (7.2-63.3)
== END 2018-03-11 11:20 | disposition home or self-care (01) ==
LOC: INF 09:19
PROVIDERS: Visit Provider Internal Medicine Medical Oncology
DX: Z51.11 Encounter for antineoplastic chemotherapy (principal); C64.9 Malignant neoplasm of unspecified kidney, except renal pelvis; C80.0 Disseminated malignant neoplasm, unspecified
CPT/HCPCS: 80053; 82024; 82533; 84443; 85025; 96413; J9299

== ENCOUNTER 2018-03-28 09:55 | Outpatient (CLI) | payer BC, SELFPAY ==
[2018-03-28 10:23] VITALS: BMI 21.2
[2018-03-28 10:56] LABS: Basophils # 0.1 K/mm3 (0-0.2); Basophils % 0.9 % (0.1-2.0); Eosinophils # 0.4 K/mm3 (0.0-0.4); Eosinophils % 5.7 % (0.1-12.0); Hematocrit 36.3 % (37.0-47.0); Hemoglobin 11.5 g/dL (12.2-16.2); Lymphocytes # 0.6 K/mm3 (0.7-4.5); Lymphocytes % 10.2 % (10-50); Mean Corpuscular HGB Conc 31.6 g/dL (31.8-35.4); Mean Corpuscular Volume 85.6 fl (81-99); Mean Platelet Volume 6.9 fl (7.4-10.4); Monocytes # 0.4 K/mm3 (0.1-1.0); Monocytes % 6.5 % (1.7-9.3); Neutrophils # 4.7 K/mm3 (1.8-7.8); Neutrophils % 76.8 % (37.0-80.0); Platelet Count 384 K/mm3 (142-424); Red Blood Count 4.24 M/mm3 (4.20-5.40); Red Cell Distribution Width 14.3 % (11.5-17.5); White Blood Count 6.1 K/mm3 (4.8-10.8)
[2018-03-28 11:37] LABS: Alanine Aminotransferase 16 U/L (12-78); Albumin Level 3.8 gm/dL (3.4-5.0); Albumin/Globulin Ratio 0.9 (1.1-1.8); Alkaline Phosphatase 131 U/L (46-116); Anion Gap 16.8 mEq/L (5-15); Aspartate Amino Transferase 12 U/L (15-37); Bilirubin,Total 0.3 mg/dL (0.2-1.0); Blood Urea Nitrogen 14 mg/dL (7-18); Calcium 9.5 mg/dL (8.5-10.1); Carbon Dioxide 26 mmol/L (21.0-32.0); Chloride 101 mmol/L (98-107); Creatinine Clearance Estimated 85 mL/min (50-200); Creatinine,Serum 0.69 mg/dL (0.55-1.02); Estimated Glomerular Filt Rate 89 ml/min (>60); GFR (African American) 107 ML/MIN (>60); Globulin 4.2 gm/dl (1.3-3.2); Glucose 110 mg/dL (74-106); Potassium 3.8 mmoL/L (3.5-5.1); Sodium 140 mmol/L (136-145)
[2018-03-28 12:05] VITALS: BP 123/80; PULSE 75; RESP 18; TEMP 36.9; O2SAT 98
[2018-03-28 12:20] VITALS: BP 120/77; PULSE 70; RESP 16
[2018-03-28 12:35] VITALS: BP 119/77; PULSE 67; RESP 16
[2018-03-28 12:50] VITALS: BP 119/74; PULSE 73; RESP 16
[2018-03-28 13:05] VITALS: BP 130/79; PULSE 75; RESP 16
== END 2018-03-28 13:25 | disposition home or self-care (01) ==
LOC: INF 10:20
PROVIDERS: Visit Provider Internal Medicine Medical Oncology
DX: Z51.11 Encounter for antineoplastic chemotherapy (principal); C64.9 Malignant neoplasm of unspecified kidney, except renal pelvis; C80.0 Disseminated malignant neoplasm, unspecified
CPT/HCPCS: 80053; 85025; 96413; J9299

== ENCOUNTER 2018-04-10 09:15 | Outpatient (CLI) | payer BC, SELFPAY ==
[2018-04-10 09:17] VITALS: BMI 21.3
[2018-04-10 09:49] LABS: Basophils # 0.1 K/mm3 (0-0.2); Basophils % 1.1 % (0.1-2.0); Eosinophils # 0.5 K/mm3 (0.0-0.4); Eosinophils % 7.4 % (0.1-12.0); Hematocrit 36.1 % (37.0-47.0); Hemoglobin 11.4 g/dL (12.2-16.2); Lymphocytes # 0.8 K/mm3 (0.7-4.5); Mean Corpuscular HGB Conc 31.5 g/dL (31.8-35.4); Mean Corpuscular Hemoglobin 26.9 pg (27.0-31.2); Mean Corpuscular Volume 85.6 fl (81-99); Mean Platelet Volume 6.9 fl (7.4-10.4); Monocytes # 0.5 K/mm3 (0.1-1.0); Monocytes % 7.3 % (1.7-9.3); Neutrophils # 4.5 K/mm3 (1.8-7.8); Neutrophils % 71.3 % (37.0-80.0); Platelet Count 407 K/mm3 (142-424); Red Blood Count 4.22 M/mm3 (4.20-5.40); Red Cell Distribution Width 14.3 % (11.5-17.5); White Blood Count 6.3 K/mm3 (4.8-10.8)
[2018-04-10 10:11] LABS: Alanine Aminotransferase 16 U/L (12-78); Albumin Level 3.7 gm/dL (3.4-5.0); Albumin/Globulin Ratio 0.8 (1.1-1.8); Alkaline Phosphatase 145 U/L (46-116); Anion Gap 12.8 mEq/L (5-15); Aspartate Amino Transferase 12 U/L (15-37); Bilirubin,Total 0.3 mg/dL (0.2-1.0); Blood Urea Nitrogen 18 mg/dL (7-18); Calcium 9.3 mg/dL (8.5-10.1); Carbon Dioxide 28 mmol/L (21.0-32.0); Chloride 101 mmol/L (98-107); Creatinine Clearance Estimated 70 mL/min (50-200); Creatinine,Serum 0.84 mg/dL (0.55-1.02); Estimated Glomerular Filt Rate 71 ml/min (>60); GFR (African American) 85 ML/MIN (>60); Globulin 4.6 gm/dl (1.3-3.2); Glucose 116 mg/dL (74-106); Potassium 3.8 mmoL/L (3.5-5.1); Sodium 138 mmol/L (136-145); Total Protein,Serum 8.3 gm/dL (6.4-8.2)
[2018-04-10 10:17] LABS: Thyroid Stimulating Hormone 96.55 uIU/ml (0.358-3.740)
[2018-04-10 11:30] VITALS: BP 125/78; PULSE 77; RESP 18; TEMP 36.6; O2SAT 97
[2018-04-10 11:45] VITALS: BP 126/81; PULSE 78; RESP 18
[2018-04-10 12:00] VITALS: BP 121/72; PULSE 75; RESP 18
[2018-04-10 12:15] VITALS: BP 130/80; PULSE 72; RESP 18
[2018-04-11 17:41] LABS: Adrenocorticotropic Hormone 49.4 pg/mL (7.2-63.3)
== END 2018-04-10 12:15 | disposition home or self-care (01) ==
LOC: INF 09:44
PROVIDERS: Visit Provider Internal Medicine Medical Oncology
DX: Z51.11 Encounter for antineoplastic chemotherapy (principal); C64.9 Malignant neoplasm of unspecified kidney, except renal pelvis; C80.0 Disseminated malignant neoplasm, unspecified
CPT/HCPCS: 80053; 82024; 82533; 84443; 85025; 96413; J9299

== ENCOUNTER 2018-04-25 09:54 | Outpatient (CLI) | payer BC, SELFPAY ==
[2018-04-25 10:05] VITALS: BMI 21.2
[2018-04-25 10:14] LABS: Basophils # 0.1 K/mm3 (0-0.2); Basophils % 0.9 % (0.1-2.0); Eosinophils # 0.6 K/mm3 (0.0-0.4); Eosinophils % 9.2 % (0.1-12.0); Hematocrit 36.6 % (37.0-47.0); Hemoglobin 11.5 g/dL (12.2-16.2); Lymphocytes # 0.6 K/mm3 (0.7-4.5); Lymphocytes % 9.9 % (10-50); Mean Corpuscular HGB Conc 31.5 g/dL (31.8-35.4); Mean Corpuscular Hemoglobin 27.2 pg (27.0-31.2); Mean Corpuscular Volume 86.3 fl (81-99); Mean Platelet Volume 7.2 fl (7.4-10.4); Monocytes # 0.4 K/mm3 (0.1-1.0); Monocytes % 5.6 % (1.7-9.3); Neutrophils # 4.6 K/mm3 (1.8-7.8); Neutrophils % 74.4 % (37.0-80.0); Platelet Count 353 K/mm3 (142-424); Red Blood Count 4.24 M/mm3 (4.20-5.40); Red Cell Distribution Width 14.7 % (11.5-17.5); White Blood Count 6.2 K/mm3 (4.8-10.8)
[2018-04-25 10:43] LABS: Alanine Aminotransferase 17 U/L (12-78); Albumin Level 3.9 gm/dL (3.4-5.0); Albumin/Globulin Ratio 0.9 (1.1-1.8); Alkaline Phosphatase 130 U/L (46-116); Anion Gap 13.9 mEq/L (5-15); Aspartate Amino Transferase 11 U/L (15-37); Bilirubin,Total 0.4 mg/dL (0.2-1.0); Blood Urea Nitrogen 22 mg/dL (7-18); Calcium 9.6 mg/dL (8.5-10.1); Carbon Dioxide 27 mmol/L (21.0-32.0); Chloride 103 mmol/L (98-107); Creatinine Clearance Estimated 74 mL/min (50-200); Estimated Glomerular Filt Rate 75 ml/min (>60); GFR (African American) 90 ML/MIN (>60); Globulin 4.5 gm/dl (1.3-3.2); Glucose 114 mg/dL (74-106); Potassium 3.9 mmoL/L (3.5-5.1); Sodium 140 mmol/L (136-145); Total Protein,Serum 8.4 gm/dL (6.4-8.2)
[2018-04-25 11:25] VITALS: BP 121/71; PULSE 74; RESP 18; TEMP 36.6; O2SAT 97
[2018-04-25 11:55] VITALS: BP 119/72; PULSE 72; RESP 18; O2SAT 96
[2018-04-25 12:25] VITALS: BP 120/70; PULSE 70; RESP 18; O2SAT 97
== END 2018-04-25 12:30 | disposition home or self-care (01) ==
LOC: INF 09:54
PROVIDERS: Visit Provider Internal Medicine Medical Oncology
DX: Z51.11 Encounter for antineoplastic chemotherapy (principal); C64.9 Malignant neoplasm of unspecified kidney, except renal pelvis
CPT/HCPCS: 80053; 85025; 96413; J9299

== ENCOUNTER 2018-05-08 08:55 | Outpatient (CLI) | payer BC, SELFPAY ==
[2018-05-08 09:03] VITALS: BMI 22.1
[2018-05-08 09:30] LABS: Basophils # 0.1 K/mm3 (0-0.2); Basophils % 1.3 % (0.1-2.0); Eosinophils # 0.5 K/mm3 (0.0-0.4); Eosinophils % 9.5 % (0.1-12.0); Hematocrit 34.3 % (37.0-47.0); Hemoglobin 10.7 g/dL (12.2-16.2); Lymphocytes # 0.6 K/mm3 (0.7-4.5); Lymphocytes % 11.2 % (10-50); Mean Corpuscular HGB Conc 31.4 g/dL (31.8-35.4); Mean Corpuscular Hemoglobin 26.9 pg (27.0-31.2); Mean Corpuscular Volume 85.9 fl (81-99); Mean Platelet Volume 7.8 fl (7.4-10.4); Monocytes # 0.3 K/mm3 (0.1-1.0); Monocytes % 6.5 % (1.7-9.3); Neutrophils # 3.6 K/mm3 (1.8-7.8); Neutrophils % 71.5 % (37.0-80.0); Platelet Count 327 K/mm3 (142-424); Red Blood Count 3.99 M/mm3 (4.20-5.40); Red Cell Distribution Width 14.8 % (11.5-17.5); White Blood Count 5.1 K/mm3 (4.8-10.8)
[2018-05-08 10:00] LABS: Alanine Aminotransferase 19 U/L (12-78); Albumin Level 3.7 gm/dL (3.4-5.0); Albumin/Globulin Ratio 0.9 (1.1-1.8); Alkaline Phosphatase 129 U/L (46-116); Anion Gap 14.9 mEq/L (5-15); Aspartate Amino Transferase 11 U/L (15-37); Bilirubin,Total 0.4 mg/dL (0.2-1.0); Blood Urea Nitrogen 21 mg/dL (7-18); Calcium 9.5 mg/dL (8.5-10.1); Carbon Dioxide 27 mmol/L (21.0-32.0); Chloride 102 mmol/L (98-107); Creatinine Clearance Estimated 82 mL/min (50-200); Creatinine,Serum 0.75 mg/dL (0.55-1.02); Estimated Glomerular Filt Rate 81 ml/min (>60); GFR (African American) 97 ML/MIN (>60); Globulin 4.3 gm/dl (1.3-3.2); Glucose 114 mg/dL (74-106); Potassium 3.9 mmoL/L (3.5-5.1); Sodium 140 mmol/L (136-145)
[2018-05-08 10:50] VITALS: BP 134/77; PULSE 78; RESP 18; O2SAT 100
[2018-05-08 11:05] VITALS: BP 129/73; PULSE 76; RESP 16
[2018-05-08 11:20] VITALS: BP 130/71; PULSE 76; RESP 16
[2018-05-08 11:35] VITALS: BP 130/78; PULSE 78; RESP 16
[2018-05-08 11:40] VITALS: BP 118/76; PULSE 82; RESP 16
[2018-05-09 17:42] LABS: Adrenocorticotropic Hormone 28.7 pg/mL (7.2-63.3)
== END 2018-05-08 11:50 | disposition home or self-care (01) ==
LOC: INF 09:01
PROVIDERS: Visit Provider Internal Medicine Medical Oncology
DX: Z51.11 Encounter for antineoplastic chemotherapy (principal); C64.9 Malignant neoplasm of unspecified kidney, except renal pelvis; C80.0 Disseminated malignant neoplasm, unspecified
CPT/HCPCS: 80053; 82024; 82533; 84443; 85025; 96413; J9299

== ENCOUNTER → 2018-05-21 08:48 | Outpatient (CLI) | payer BC, SELFPAY ==
--- NOTE | 2018-05-21 | CT_ITS ---
CT chest w con HISTORY: Follow-up metastatic renal cell carcinoma ITS.REASON: RENAL CELL CARCINOMA ORDERING PHYSICIAN: Luz Marina Abreu MD PATIENT AGE: 52 years COMPARISON: 01/25/2018 TECHNIQUE: Axial images obtained following the administration of 75 mL of Isovue 370 . Sagittal, and coronal reformatted images are also generated and reviewed. All CT scans at the facility use one or more dose reduction, viz: automated exposure control, ma/kV adjustment per patient size (including targeted exams where dose is matched to indication, i.e. head), or iterative reconstruction technique. FINDINGS: There is a bulky left supraclavicular mass measuring 7.5 cm transverse, 3.8 cm AP, and 3.9 cm cephalad to caudad. Does not appear significantly changed. There is extension into the superior mediastinum anteriorly on the left. Bulky bilateral mediastinal and bilateral hilar adenopathy is once again noted. The adenopathy in the subcarinal region and left aspect of the mediastinum at the aortopulmonic area appears slightly improved. Bulky right hilar adenopathy may be very slightly improved as well. There is tracheal shift to the right in the upper chest and neck which is slightly improved. There are numerous noncalcified pulmonary nodules which are slightly improved volume loss is noted in the right upper lobe posteriorly and medially with mild diffuse bronchial thickening on the right. There is a 13 mm nodule in the right lower lobe which previously approximately 15 mm. No new nodules identified. Left axillary adenopathy once again noted with some improvement IMPRESSION: Diffuse mediastinal and bilateral hilar adenopathy as well as left supraclavicular adenopathy and multiple bilateral pulmonary nodules consistent with metastatic disease. The bulky adenopathy has slightly improved. The numerous pulmonary nodules also appear slightly smaller. The tracheal shift to the right has also slightly improved
--- NOTE | 2018-05-21 09:00 | CT_ITS ---
CT soft tissue neck w con CLINICAL INDICATION: Renal cell carcinoma with left supraclavicular mass. ITS.REASON: RENAL CELL CARCINOMA ORDERING PHYSICIAN: Luz Marina Abreu MD PATIENT AGE: 52 years COMPARISON: 01/25/2018 TECHNIQUE:Axial images obtained following the intravenous administration of 15 mL's of Optiray 350. With sagittal and coronal reformats. All CT scans at the facility use one or more dose reduction, viz: automated exposure control, ma/kV adjustment per patient size (including targeted exams where dose is matched to indication, i.e. head), or iterative reconstruction technique. FINDINGS: The nasopharynx, oropharynx, hypopharynx, and laryngeal region have an unremarkable appearance. There is a left supraclavicular mass measures 8 cm transverse and 3 cm AP and 4 cm cephalad to caudad consistent with adenopathy. This is causing tracheal shift to the right by approximately 1.4 cm. Other smaller adjacent lymph nodes are present in the left neck at 2.4 cm. A 2 cm lymph node is present in the left lateral neck posteriorly deep to the trapezius. Superior mediastinal adenopathy also noted as described in the chest CT report. IMPRESSION: Left supraclavicular mass consistent with adenopathy/metastasis in this patient with known renal cell carcinoma. There is tracheal shift to the right. Esophagus is also slightly deviated toward the right.
--- NOTE | 2018-05-21 09:00 | CT_ITS ---
CT abdomen pelvis w con CLINICAL INDICATION: ITS.REASON: RENAL CELL CARCINOMA ORDERING PHYSICIAN: Luz Marina Abreu MD PATIENT AGE: 52 years COMPARISON: 01/25/2018 TECHNIQUE: Axial images obtained with sagittal and coronal reformats. All CT scans at the facility use one or more dose reduction, viz: automated exposure control, ma/kV adjustment per patient size (including targeted exams where dose is matched to indication, i.e. head), or iterative reconstruction technique. PROCEDURE: Oral Contrast: Redicat IV Contrast: 75 mL's Optiray 350 FINDINGS: There are several hypodense lesions of the liver the largest a 2.4 x 1.5 and the right hepatic lobe inferiorly previously measuring 3 x 1.5 cm. These have slightly decreased in size. The spleen, gallbladder, and adrenal glands, and pancreas have an unremarkable appearance. Left upper pole renal mass 5.7 cm transverse and 5 cm AP and 5.3 cm cephalad to caudad previously 6.3 x 5.5 x 6.1 cm. There is some coarse calcification noted in the mass. The left renal vein does not appear enlarged. There is some slight increased soft tissue density in the left para-aortic region suggesting some mild adenopathy slightly improved. There is a right renal cyst. No pelvic mass or adenopathy. No intra-abdominal adenopathy. No intestinal obstruction or free air. No acute bony findings. IMPRESSION: 1. Left upper pole renal mass with again noted slightly smaller with some minimal residual right. No adenopathy on the left. 2. Multiple liver lesions consistent with metastasis also slightly smaller
== END ==
PROVIDERS: PCP Family Medicine; Visit Provider Internal Medicine Medical Oncology
DX: C64.9 Malignant neoplasm of unspecified kidney, except renal pelvis (principal); C80.0 Disseminated malignant neoplasm, unspecified
CPT/HCPCS: 70491; 71260; 74177; Q9967

== ENCOUNTER 2018-05-23 10:05 | Outpatient (CLI) | payer BC, SELFPAY ==
[2018-05-23 10:09] VITALS: BMI 21.2
[2018-05-23 10:37] LABS: Basophils % 0.9 % (0.1-2.0); Eosinophils # 0.6 K/mm3 (0.0-0.4); Eosinophils % 11.6 % (0.1-12.0); Hematocrit 33.9 % (37.0-47.0); Lymphocytes # 0.7 K/mm3 (0.7-4.5); Lymphocytes % 14.8 % (10-50); Mean Corpuscular HGB Conc 32.3 g/dL (31.8-35.4); Mean Corpuscular Hemoglobin 27.3 pg (27.0-31.2); Mean Corpuscular Volume 84.5 fl (81-99); Mean Platelet Volume 6.8 fl (7.4-10.4); Monocytes # 0.4 K/mm3 (0.1-1.0); Monocytes % 7.9 % (1.7-9.3); Neutrophils # 3.1 K/mm3 (1.8-7.8); Neutrophils % 64.9 % (37.0-80.0); Platelet Count 323 K/mm3 (142-424); Red Blood Count 4.01 M/mm3 (4.20-5.40); Red Cell Distribution Width 13.6 % (11.5-17.5); White Blood Count 4.7 K/mm3 (4.8-10.8)
[2018-05-23 11:00] LABS: Alanine Aminotransferase 25 U/L (12-78); Albumin Level 3.5 gm/dL (3.4-5.0); Albumin/Globulin Ratio 0.9 (1.1-1.8); Alkaline Phosphatase 134 U/L (46-116); Anion Gap 12.6 mEq/L (5-15); Aspartate Amino Transferase 14 U/L (15-37); Bilirubin,Total 0.3 mg/dL (0.2-1.0); Blood Urea Nitrogen 19 mg/dL (7-18); Calcium 9.5 mg/dL (8.5-10.1); Carbon Dioxide 29 mmol/L (21.0-32.0); Chloride 103 mmol/L (98-107); Creatinine Clearance Estimated 74 mL/min (50-200); Estimated Glomerular Filt Rate 75 ml/min (>60); GFR (African American) 90 ML/MIN (>60); Globulin 4.1 gm/dl (1.3-3.2); Glucose 112 mg/dL (74-106); Potassium 3.6 mmoL/L (3.5-5.1); Sodium 141 mmol/L (136-145); Total Protein,Serum 7.6 gm/dL (6.4-8.2)
[2018-05-23 11:48] LABS: Thyroid Stimulating Hormone 0.64 uIU/ml (0.358-3.740)
[2018-05-23 12:00] VITALS: BP 125/83; PULSE 74; RESP 18; TEMP 36.4; O2SAT 96
[2018-05-23 12:15] VITALS: BP 119/76; PULSE 72; RESP 18
[2018-05-23 12:30] VITALS: BP 124/85; PULSE 76; RESP 18
[2018-05-23 12:40] VITALS: BP 122/76; PULSE 72; RESP 18
== END 2018-05-23 12:50 | disposition home or self-care (01) ==
LOC: INF 10:07
PROVIDERS: Visit Provider Internal Medicine Medical Oncology
DX: Z51.11 Encounter for antineoplastic chemotherapy (principal); C64.9 Malignant neoplasm of unspecified kidney, except renal pelvis
CPT/HCPCS: 80053; 84443; 85025; 96413; J9299

== ENCOUNTER 2018-06-05 09:08 | Outpatient (CLI) | payer BC, SELFPAY ==
[2018-06-05 09:11] VITALS: BMI 21.4
[2018-06-05 09:46] LABS: Basophils # 0.1 K/mm3 (0-0.2); Basophils % 1.1 % (0.1-2.0); Eosinophils # 0.5 K/mm3 (0.0-0.4); Eosinophils % 9.2 % (0.1-12.0); Hematocrit 35.1 % (37.0-47.0); Hemoglobin 11.4 g/dL (12.2-16.2); Lymphocytes # 0.7 K/mm3 (0.7-4.5); Lymphocytes % 12.8 % (10-50); Mean Corpuscular HGB Conc 32.4 g/dL (31.8-35.4); Mean Corpuscular Hemoglobin 27.5 pg (27.0-31.2); Mean Corpuscular Volume 84.9 fl (81-99); Mean Platelet Volume 7.1 fl (7.4-10.4); Monocytes # 0.3 K/mm3 (0.1-1.0); Monocytes % 5.9 % (1.7-9.3); Neutrophils # 3.6 K/mm3 (1.8-7.8); Platelet Count 365 K/mm3 (142-424); Red Blood Count 4.13 M/mm3 (4.20-5.40); Red Cell Distribution Width 13.5 % (11.5-17.5)
[2018-06-05 10:02] LABS: Alanine Aminotransferase 23 U/L (12-78); Albumin Level 3.7 gm/dL (3.4-5.0); Albumin/Globulin Ratio 0.8 (1.1-1.8); Alkaline Phosphatase 143 U/L (46-116); Anion Gap 13.7 mEq/L (5-15); Aspartate Amino Transferase 14 U/L (15-37); Bilirubin,Total 0.3 mg/dL (0.2-1.0); Blood Urea Nitrogen 19 mg/dL (7-18); Calcium 9.7 mg/dL (8.5-10.1); Carbon Dioxide 28 mmol/L (21.0-32.0); Chloride 103 mmol/L (98-107); Creatinine Clearance Estimated 84 mL/min (50-200); Creatinine,Serum 0.71 mg/dL (0.55-1.02); Estimated Glomerular Filt Rate 86 ml/min (>60); GFR (African American) 104 ML/MIN (>60); Globulin 4.5 gm/dl (1.3-3.2); Glucose 114 mg/dL (74-106); Potassium 3.7 mmoL/L (3.5-5.1); Sodium 141 mmol/L (136-145); Thyroid Stimulating Hormone 0.16 uIU/ml (0.358-3.740); Total Protein,Serum 8.2 gm/dL (6.4-8.2)
[2018-06-05 10:38] VITALS: BP 130/81; PULSE 76; RESP 18; TEMP 36.6; O2SAT 97
[2018-06-05 10:53] VITALS: BP 127/79; PULSE 71; RESP 18; O2SAT 97
[2018-06-05 11:16] VITALS: BP 129/84; PULSE 82; RESP 18; O2SAT 96
[2018-06-05 11:25] VITALS: BP 130/81; PULSE 76; RESP 18; O2SAT 98
[2018-06-08 10:09] LABS: Adrenocorticotropic Hormone 50.8 pg/mL (7.2-63.3)
== END 2018-06-05 11:30 | disposition home or self-care (01) ==
LOC: INF 09:08
PROVIDERS: Visit Provider Internal Medicine Medical Oncology
DX: Z51.11 Encounter for antineoplastic chemotherapy (principal); C64.9 Malignant neoplasm of unspecified kidney, except renal pelvis
CPT/HCPCS: 80053; 82024; 82533; 84443; 85025; 96413; J9299

== ENCOUNTER 2018-06-20 09:58 | Outpatient (CLI) | payer BC, SELFPAY ==
[2018-06-20 10:00] VITALS: BMI 21.4
[2018-06-20 10:21] LABS: Basophils % 0.8 % (0.1-2.0); Eosinophils # 0.3 K/mm3 (0.0-0.4); Eosinophils % 5.7 % (0.1-12.0); Hematocrit 38.1 % (37.0-47.0); Hemoglobin 11.9 g/dL (12.2-16.2); Lymphocytes # 0.9 K/mm3 (0.7-4.5); Lymphocytes % 16.1 % (10-50); Mean Corpuscular HGB Conc 31.4 g/dL (31.8-35.4); Mean Corpuscular Hemoglobin 27.1 pg (27.0-31.2); Mean Corpuscular Volume 86.3 fl (81-99); Mean Platelet Volume 7.2 fl (7.4-10.4); Monocytes # 0.4 K/mm3 (0.1-1.0); Monocytes % 6.2 % (1.7-9.3); Neutrophils % 71.3 % (37.0-80.0); Platelet Count 359 K/mm3 (142-424); Red Blood Count 4.41 M/mm3 (4.20-5.40); Red Cell Distribution Width 13.2 % (11.5-17.5); White Blood Count 5.6 K/mm3 (4.8-10.8)
[2018-06-20 10:31] LABS: Alanine Aminotransferase 26 U/L (12-78); Albumin Level 3.8 gm/dL (3.4-5.0); Albumin/Globulin Ratio 0.8 (1.1-1.8); Alkaline Phosphatase 143 U/L (46-116); Anion Gap 15.1 mEq/L (5-15); Aspartate Amino Transferase 23 U/L (15-37); Bilirubin,Total 0.3 mg/dL (0.2-1.0); Blood Urea Nitrogen 19 mg/dL (7-18); Calcium 10.2 mg/dL (8.5-10.1); Carbon Dioxide 27 mmol/L (21.0-32.0); Chloride 102 mmol/L (98-107); Creatinine Clearance Estimated 87 mL/min (50-200); Creatinine,Serum 0.68 mg/dL (0.55-1.02); Estimated Glomerular Filt Rate 90 ml/min (>60); GFR (African American) 109 ML/MIN (>60); Globulin 4.6 gm/dl (1.3-3.2); Glucose 124 mg/dL (74-106); Potassium 4.1 mmoL/L (3.5-5.1); Sodium 140 mmol/L (136-145); Total Protein,Serum 8.4 gm/dL (6.4-8.2)
[2018-06-20 12:15] VITALS: BP 132/87; PULSE 87; RESP 18
[2018-06-20 12:30] VITALS: BP 152/97; PULSE 87; RESP 18
[2018-06-20 12:45] VITALS: BP 137/80; PULSE 87; RESP 18
[2018-06-20 13:00] VITALS: BP 139/89; PULSE 82; RESP 18
== END 2018-06-20 13:00 | disposition home or self-care (01) ==
LOC: INF 09:58
PROVIDERS: Visit Provider Internal Medicine Medical Oncology
DX: Z51.11 Encounter for antineoplastic chemotherapy (principal); C64.9 Malignant neoplasm of unspecified kidney, except renal pelvis; C80.0 Disseminated malignant neoplasm, unspecified
CPT/HCPCS: 80053; 85025; 96413; J9299

== ENCOUNTER 2018-07-03 08:58 | Outpatient (CLI) | payer BC, SELFPAY ==
[2018-07-03 09:00] VITALS: BMI 20.7
[2018-07-03 09:52] LABS: Alanine Aminotransferase 22 U/L (12-78); Albumin Level 3.6 gm/dL (3.4-5.0); Albumin/Globulin Ratio 0.9 (1.1-1.8); Alkaline Phosphatase 134 U/L (46-116); Anion Gap 13.9 mEq/L (5-15); Aspartate Amino Transferase 16 U/L (15-37); Bilirubin,Total 0.3 mg/dL (0.2-1.0); Blood Urea Nitrogen 16 mg/dL (7-18); Calcium 9.7 mg/dL (8.5-10.1); Carbon Dioxide 29 mmol/L (21.0-32.0); Chloride 101 mmol/L (98-107); Creatinine Clearance Estimated 74 mL/min (50-200); Creatinine,Serum 0.78 mg/dL (0.55-1.02); Estimated Glomerular Filt Rate 77 ml/min (>60); GFR (African American) 93 ML/MIN (>60); Globulin 4.2 gm/dl (1.3-3.2); Glucose 101 mg/dL (74-106); Potassium 3.9 mmoL/L (3.5-5.1); Sodium 140 mmol/L (136-145); Thyroid Stimulating Hormone 0.13 uIU/ml (0.358-3.740); Total Protein,Serum 7.8 gm/dL (6.4-8.2)
[2018-07-03 09:56] LABS: Basophils % 0.6 % (0.1-2.0); Eosinophils # 0.3 K/mm3 (0.0-0.4); Eosinophils % 6.2 % (0.1-12.0); Hematocrit 34.6 % (37.0-47.0); Hemoglobin 11.5 g/dL (12.2-16.2); Lymphocytes % 20.2 % (10-50); Mean Corpuscular HGB Conc 33.2 g/dL (31.8-35.4); Mean Corpuscular Hemoglobin 28.3 pg (27.0-31.2); Mean Corpuscular Volume 85.3 fl (81-99); Mean Platelet Volume 6.8 fl (7.4-10.4); Monocytes # 0.4 K/mm3 (0.1-1.0); Neutrophils # 3.1 K/mm3 (1.8-7.8); Neutrophils % 64.9 % (37.0-80.0); Platelet Count 334 K/mm3 (142-424); Red Blood Count 4.06 M/mm3 (4.20-5.40); Red Cell Distribution Width 13.6 % (11.5-17.5); White Blood Count 4.7 K/mm3 (4.8-10.8)
[2018-07-03 10:30] VITALS: BP 103/64; PULSE 74; RESP 18; TEMP 36.4; O2SAT 100
[2018-07-03 10:45] VITALS: BP 102/63; PULSE 74; RESP 18
[2018-07-03 11:00] VITALS: BP 109/60; PULSE 74; RESP 18
[2018-07-03 11:15] VITALS: BP 105/70; PULSE 70; RESP 18
[2018-07-05 09:05] LABS: Adrenocorticotropic Hormone 79.4 pg/mL (7.2-63.3)
== END 2018-07-03 11:15 | disposition home or self-care (01) ==
LOC: INF 08:58
PROVIDERS: Visit Provider Internal Medicine Medical Oncology
DX: Z51.11 Encounter for antineoplastic chemotherapy (principal); C64.9 Malignant neoplasm of unspecified kidney, except renal pelvis; C80.0 Disseminated malignant neoplasm, unspecified
CPT/HCPCS: 80053; 82024; 82533; 84443; 85025; 96413; J9299

== ENCOUNTER 2018-07-18 09:54 | Outpatient (CLI) | payer BC, SELFPAY ==
[2018-07-18 09:54] VITALS: BMI 21.8
[2018-07-18 10:09] LABS: Basophils % 0.6 % (0.1-2.0); Eosinophils # 0.3 K/mm3 (0.0-0.4); Eosinophils % 6.4 % (0.1-12.0); Hematocrit 33.8 % (37.0-47.0); Hemoglobin 10.9 g/dL (12.2-16.2); Lymphocytes # 0.8 K/mm3 (0.7-4.5); Lymphocytes % 15.8 % (10-50); Mean Corpuscular HGB Conc 32.3 g/dL (31.8-35.4); Mean Corpuscular Volume 83.8 fl (81-99); Mean Platelet Volume 6.9 fl (7.4-10.4); Monocytes # 0.3 K/mm3 (0.1-1.0); Monocytes % 6.4 % (1.7-9.3); Neutrophils # 3.7 K/mm3 (1.8-7.8); Neutrophils % 70.8 % (37.0-80.0); Platelet Count 377 K/mm3 (142-424); Red Blood Count 4.03 M/mm3 (4.20-5.40); Red Cell Distribution Width 13.5 % (11.5-17.5); White Blood Count 5.2 K/mm3 (4.8-10.8)
[2018-07-18 10:20] LABS: Alanine Aminotransferase 24 U/L (12-78); Albumin Level 3.4 gm/dL (3.4-5.0); Albumin/Globulin Ratio 0.8 (1.1-1.8); Alkaline Phosphatase 140 U/L (46-116); Anion Gap 12.3 mEq/L (5-15); Bilirubin,Total 0.3 mg/dL (0.2-1.0); Blood Urea Nitrogen 16 mg/dL (7-18); Calcium 9.1 mg/dL (8.5-10.1); Carbon Dioxide 29 mmol/L (21.0-32.0); Chloride 104 mmol/L (98-107); Creatinine Clearance Estimated 84 mL/min (50-200); Creatinine,Serum 0.68 mg/dL (0.55-1.02); Estimated Glomerular Filt Rate 90 ml/min (>60); GFR (African American) 109 ML/MIN (>60); Globulin 4.3 gm/dl (1.3-3.2); Glucose 118 mg/dL (74-106); Sodium 141 mmol/L (136-145); Total Protein,Serum 7.7 gm/dL (6.4-8.2)
[2018-07-18 10:32] LABS: Aspartate Amino Transferase 25 U/L (15-37); Potassium 4.3 mmoL/L (3.5-5.1)
[2018-07-18 11:45] VITALS: BP 123/77; PULSE 72; RESP 18; TEMP 36.4; O2SAT 100
[2018-07-18 12:00] VITALS: BP 117/74; PULSE 72; RESP 18
[2018-07-18 12:15] VITALS: BP 116/75; PULSE 73; RESP 18
[2018-07-18 12:25] VITALS: BP 117/68; PULSE 68; RESP 18
== END 2018-07-18 12:25 | disposition home or self-care (01) ==
LOC: INF 09:54
PROVIDERS: Visit Provider Internal Medicine Medical Oncology
DX: Z51.11 Encounter for antineoplastic chemotherapy (principal); C64.9 Malignant neoplasm of unspecified kidney, except renal pelvis; C80.0 Disseminated malignant neoplasm, unspecified
CPT/HCPCS: 80053; 85025; 96413; J9299

== ENCOUNTER 2018-07-31 09:51 | Outpatient (CLI) | payer BC, SELFPAY ==
[2018-07-31 09:54] VITALS: BMI 21.8
[2018-07-31 10:16] LABS: Eosinophils # 0.3 K/mm3 (0.0-0.4); Eosinophils % 7.1 % (0.1-12.0); Hematocrit 34.5 % (37.0-47.0); Hemoglobin 11.3 g/dL (12.2-16.2); Lymphocytes # 0.8 K/mm3 (0.7-4.5); Lymphocytes % 19.8 % (10-50); Mean Corpuscular HGB Conc 32.8 g/dL (31.8-35.4); Mean Corpuscular Hemoglobin 27.5 pg (27.0-31.2); Mean Corpuscular Volume 83.7 fl (81-99); Mean Platelet Volume 7.2 fl (7.4-10.4); Monocytes # 0.3 K/mm3 (0.1-1.0); Monocytes % 6.8 % (1.7-9.3); Neutrophils # 2.6 K/mm3 (1.8-7.8); Neutrophils % 65.3 % (37.0-80.0); Platelet Count 333 K/mm3 (142-424); Red Blood Count 4.12 M/mm3 (4.20-5.40); Red Cell Distribution Width 13.6 % (11.5-17.5)
[2018-07-31 10:39] LABS: Alanine Aminotransferase 24 U/L (12-78); Albumin Level 3.7 gm/dL (3.4-5.0); Albumin/Globulin Ratio 0.9 (1.1-1.8); Alkaline Phosphatase 144 U/L (46-116); Aspartate Amino Transferase 14 U/L (15-37); Bilirubin,Total 0.2 mg/dL (0.2-1.0); Blood Urea Nitrogen 20 mg/dL (7-18); Calcium 9.6 mg/dL (8.5-10.1); Carbon Dioxide 30 mmol/L (21.0-32.0); Chloride 101 mmol/L (98-107); Creatinine Clearance Estimated 86 mL/min (50-200); Creatinine,Serum 0.69 mg/dL (0.55-1.02); Estimated Glomerular Filt Rate 88 ml/min (>60); GFR (African American) 107 ML/MIN (>60); Globulin 4.3 gm/dl (1.3-3.2); Glucose 114 mg/dL (74-106); Sodium 139 mmol/L (136-145)
[2018-07-31 10:42] LABS: Thyroid Stimulating Hormone 0.05 uIU/ml (0.358-3.740)
[2018-07-31 11:22] VITALS: BP 111/72; PULSE 74; RESP 18; TEMP 36.6; O2SAT 97
[2018-07-31 11:47] VITALS: BP 110/71; PULSE 83; RESP 18; O2SAT 98
[2018-07-31 12:00] VITALS: BP 111/74; PULSE 81; RESP 18; O2SAT 98
[2018-08-02 08:10] LABS: Adrenocorticotropic Hormone 60.6 pg/mL (7.2-63.3)
== END 2018-07-31 12:05 | disposition home or self-care (01) ==
LOC: INF 09:51
PROVIDERS: Visit Provider Internal Medicine Medical Oncology
DX: Z51.11 Encounter for antineoplastic chemotherapy (principal); C80.0 Disseminated malignant neoplasm, unspecified; C64.9 Malignant neoplasm of unspecified kidney, except renal pelvis
CPT/HCPCS: 80053; 82024; 82533; 84443; 85025; 96413; J9299

== ENCOUNTER → 2018-08-13 08:48 | Outpatient (CLI) | payer BC, SELFPAY ==
[2018-08-13 09:08] LABS: Basophils % 0.7 % (0.1-2.0); Eosinophils # 0.3 K/mm3 (0.0-0.4); Eosinophils % 5.9 % (0.1-12.0); Hematocrit 33.9 % (37.0-47.0); Lymphocytes % 18.8 % (10-50); Mean Corpuscular HGB Conc 32.4 g/dL (31.8-35.4); Mean Corpuscular Hemoglobin 27.6 pg (27.0-31.2); Mean Platelet Volume 6.7 fl (7.4-10.4); Monocytes # 0.4 K/mm3 (0.1-1.0); Monocytes % 7.2 % (1.7-9.3); Neutrophils # 3.5 K/mm3 (1.8-7.8); Neutrophils % 67.5 % (37.0-80.0); Platelet Count 325 K/mm3 (142-424); Red Blood Count 3.99 M/mm3 (4.20-5.40); Red Cell Distribution Width 13.8 % (11.5-17.5); White Blood Count 5.2 K/mm3 (4.8-10.8)
--- NOTE | 2018-08-13 09:25 | CT_ITS ---
CT abdomen pelvis w con CLINICAL INDICATION: Follow-up renal cell carcinoma ITS.REASON: renal cell cancer ORDERING PHYSICIAN: Luz Marina Abreu MD PATIENT AGE: 53 years COMPARISON: 05/21/2018 TECHNIQUE: Axial images obtained with sagittal and coronal reformats. All CT scans at the facility use one or more dose reduction, viz: automated exposure control, ma/kV adjustment per patient size (including targeted exams where dose is matched to indication, i.e. head), or iterative reconstruction technique. PROCEDURE: Oral Contrast: Redicat IV Contrast: 75 mL's Omnipaque 350. FINDINGS: There are several hypoattenuating hepatic lesions consistent with metastatic foci. The largest is in the anterior aspect of the right hepatic lobe and measures 1.7 x 1.2 cm and is slightly smaller compared to the previous exam previously at 1.8 x 1.8 cm. No new lesions are evident. The spleen, adrenal glands, and pancreas have an unremarkable appearance aside from pancreatic atrophy. There is a 11 mm cyst in the right kidney laterally. A solid-appearing left renal mass is once again noted measuring 5.4 x x 5.1 cm and is slightly smaller when compared to the previous exam. There are some small nodes in the left periaortic region not significant changed. The left renal vein is patent. There is moderate amount retained colonic feces. No intestinal obstruction or free air. There has been prior hysterectomy.. No bony destructive process evident. IMPRESSION: 1. Multiple hepatic lesions once again noted slightly smaller suggesting improvement in metastatic disease. 2. Persistence left renal mass consistent with neoplasm which is also slightly smaller. 3. No change mild left para-aortic adenopathy
--- NOTE | 2018-08-13 09:25 | CT_ITS ---
CT chest w con HISTORY: Follow-up metastatic renal cell carcinoma ITS.REASON: renal cell cancer ORDERING PHYSICIAN: Luz Marina Abreu MD PATIENT AGE: 53 years COMPARISON: 05/21/2018 TECHNIQUE: Axial images obtained following the administration of 75 mL of Omnipaque 350 . Sagittal, and coronal reformatted images are also generated and reviewed. All CT scans at the facility use one or more dose reduction, viz: automated exposure control, ma/kV adjustment per patient size (including targeted exams where dose is matched to indication, i.e. head), or iterative reconstruction technique. FINDINGS: Left supraclavicular mass once again noted and does appear somewhat less bulky 5.8 x 3.7 cm previously 7.5 x 3.8 cm. Trachea is shifted toward the right from the supraclavicular mass. The left axillary adenopathy is not severely change. There is been some mild improvement in the left mediastinal adenopathy. There is been marked improvement in the right-sided mediastinal and hilar adenopathy. Fibrotic changes are present in the right upper lobe with some mild bronchiectasis unchanged. Multiple pulmonary nodules have decreased in size. No new nodules are demonstrated. No effusions. No acute bony anomalies. There is an area of sclerosis involving T8 and T9 posteriorly at the endplate and may be due to endplate changes. IMPRESSION: 1. Marked improvement in the right mediastinal and perihilar adenopathy with mild improvement in the left supraclavicular and mediastinal adenopathy. Axillary adenopathy is not significant change. 2. Decreasing size pulmonary nodules consistent with improvement in pulmonary metastasis.
[2018-08-13 09:39] LABS: Anion Gap 11.2 mEq/L (5-15); Blood Urea Nitrogen 18 mg/dL (7-18); Carbon Dioxide 30 mmol/L (21.0-32.0); Chloride 103 mmol/L (98-107); Creatinine,Serum 0.74 mg/dL (0.55-1.02); Potassium 4.2 mmoL/L (3.5-5.1); Sodium 140 mmol/L (136-145)
[2018-08-13 09:40] LABS: Alanine Aminotransferase 22 U/L (12-78); Albumin Level 3.5 gm/dL (3.4-5.0); Alkaline Phosphatase 133 U/L (46-116); Aspartate Amino Transferase 10 U/L (15-37); Bilirubin,Total 0.2 mg/dL (0.2-1.0); Estimated Glomerular Filt Rate 81 ml/min (>60); GFR (African American) 99 ML/MIN (>60); Globulin 3.6 gm/dl (1.3-3.2); Glucose 103 mg/dL (74-106); Thyroid Stimulating Hormone 0.34 uIU/ml (0.358-3.740); Total Protein,Serum 7.1 gm/dL (6.4-8.2)
== END ==
PROVIDERS: PCP Family Medicine; Visit Provider Internal Medicine Medical Oncology
DX: Z51.11 Encounter for antineoplastic chemotherapy (principal); C64.9 Malignant neoplasm of unspecified kidney, except renal pelvis; C80.0 Disseminated malignant neoplasm, unspecified
CPT/HCPCS: 36415; 71260; 74177; 80053; 84443; 85025

== ENCOUNTER 2018-08-20 09:55 | Outpatient (CLI) | payer BC, SELFPAY ==
[2018-08-20 10:04] VITALS: BMI 21.8
[2018-08-20 11:00] VITALS: BP 106/66; PULSE 68; RESP 20; TEMP 36.9; O2SAT 95
[2018-08-20 11:30] VITALS: BP 107/66; PULSE 68; RESP 20; TEMP 36.9; O2SAT 95
== END 2018-08-20 11:35 | disposition home or self-care (01) ==
LOC: INF 09:55
PROVIDERS: Visit Provider Internal Medicine Medical Oncology
DX: C64.9 Malignant neoplasm of unspecified kidney, except renal pelvis (principal); C80.0 Disseminated malignant neoplasm, unspecified; Z51.11 Encounter for antineoplastic chemotherapy
CPT/HCPCS: 96413; J9299

== ENCOUNTER 2018-09-12 10:38 | Outpatient (CLI) | payer BC, SELFPAY ==
[2018-09-12 10:40] VITALS: BMI 22.4
[2018-09-12 11:07] LABS: Basophils # 0.1 K/mm3 (0-0.2); Basophils % 1.2 % (0.1-2.0); Eosinophils # 0.3 K/mm3 (0.0-0.4); Eosinophils % 6.1 % (0.1-12.0); Hematocrit 39.6 % (37.0-47.0); Lymphocytes # 0.8 K/mm3 (0.7-4.5); Lymphocytes % 17.1 % (10-50); Mean Corpuscular HGB Conc 30.3 g/dL (31.8-35.4); Mean Corpuscular Hemoglobin 26.6 pg (27.0-31.2); Mean Corpuscular Volume 87.8 fl (81-99); Mean Platelet Volume 7.8 fl (7.4-10.4); Monocytes # 0.2 K/mm3 (0.1-1.0); Monocytes % 4.8 % (1.7-9.3); Neutrophils # 3.5 K/mm3 (1.8-7.8); Neutrophils % 70.9 % (37.0-80.0); Platelet Count 359 K/mm3 (142-424); Red Blood Count 4.51 M/mm3 (4.20-5.40); Red Cell Distribution Width 14.4 % (11.5-17.5); White Blood Count 4.9 K/mm3 (4.8-10.8)
[2018-09-12 11:31] LABS: Alanine Aminotransferase 20 U/L (12-78); Albumin Level 3.6 gm/dL (3.4-5.0); Albumin/Globulin Ratio 0.9 (1.1-1.8); Alkaline Phosphatase 136 U/L (46-116); Anion Gap 12.1 mEq/L (5-15); Aspartate Amino Transferase 14 U/L (15-37); Bilirubin,Total 0.4 mg/dL (0.2-1.0); Blood Urea Nitrogen 16 mg/dL (7-18); Carbon Dioxide 28 mmol/L (21.0-32.0); Chloride 103 mmol/L (98-107); Creatinine Clearance Estimated 76 mL/min (50-200); Creatinine,Serum 0.81 mg/dL (0.55-1.02); Estimated Glomerular Filt Rate 73 ml/min (>60); GFR (African American) 89 ML/MIN (>60); Globulin 3.9 gm/dl (1.3-3.2); Glucose 112 mg/dL (74-106); Potassium 4.1 mmoL/L (3.5-5.1); Sodium 139 mmol/L (136-145); Thyroid Stimulating Hormone 4.89 uIU/ml (0.358-3.740); Total Protein,Serum 7.5 gm/dL (6.4-8.2)
[2018-09-12 12:46] VITALS: BP 126/77; PULSE 75; RESP 20; TEMP 36.6; O2SAT 98
[2018-09-12 13:16] VITALS: BP 118/76; PULSE 79; RESP 20; O2SAT 97
[2018-09-12 13:35] VITALS: BP 124/74; PULSE 76; RESP 20; O2SAT 97
== END 2018-09-12 13:35 | disposition home or self-care (01) ==
LOC: INF 10:38
PROVIDERS: Visit Provider Internal Medicine Medical Oncology
DX: Z51.11 Encounter for antineoplastic chemotherapy (principal); C64.9 Malignant neoplasm of unspecified kidney, except renal pelvis; C80.0 Disseminated malignant neoplasm, unspecified
CPT/HCPCS: 80053; 84443; 85025; 96413; J9299

== ENCOUNTER 2018-10-10 08:25 | Outpatient (CLI) | payer BC, SELFPAY ==
[2018-10-10 08:26] VITALS: BMI 22.8
[2018-10-10 08:48] LABS: Basophils # 0.1 K/mm3 (0-0.2); Basophils % 1.6 % (0.1-2.0); Eosinophils # 0.3 K/mm3 (0.0-0.4); Eosinophils % 5.4 % (0.1-12.0); Hematocrit 40.2 % (37.0-47.0); Hemoglobin 12.3 g/dL (12.2-16.2); Lymphocytes # 1.1 K/mm3 (0.7-4.5); Lymphocytes % 23.5 % (10-50); Mean Corpuscular HGB Conc 30.5 g/dL (31.8-35.4); Mean Corpuscular Hemoglobin 27.3 pg (27.0-31.2); Mean Corpuscular Volume 89.4 fl (81-99); Mean Platelet Volume 7.7 fl (7.4-10.4); Monocytes # 0.3 K/mm3 (0.1-1.0); Monocytes % 6.3 % (1.7-9.3); Neutrophils # 2.9 K/mm3 (1.8-7.8); Neutrophils % 63.1 % (37.0-80.0); Platelet Count 319 K/mm3 (142-424); Red Blood Count 4.49 M/mm3 (4.20-5.40); Red Cell Distribution Width 14.1 % (11.5-17.5); White Blood Count 4.6 K/mm3 (4.8-10.8)
[2018-10-10 09:14] LABS: Alanine Aminotransferase 19 U/L (12-78); Albumin Level 3.6 gm/dL (3.4-5.0); Albumin/Globulin Ratio 0.9 (1.1-1.8); Alkaline Phosphatase 127 U/L (46-116); Anion Gap 10.8 mEq/L (5-15); Aspartate Amino Transferase 14 U/L (15-37); Bilirubin,Total 0.4 mg/dL (0.2-1.0); Blood Urea Nitrogen 19 mg/dL (7-18); Calcium 9.5 mg/dL (8.5-10.1); Carbon Dioxide 29 mmol/L (21.0-32.0); Chloride 103 mmol/L (98-107); Creatinine Clearance Estimated 73 mL/min (50-200); Creatinine,Serum 0.85 mg/dL (0.55-1.02); Estimated Glomerular Filt Rate 69 ml/min (>60); GFR (African American) 84 ML/MIN (>60); Globulin 3.9 gm/dl (1.3-3.2); Glucose 108 mg/dL (74-106); Potassium 3.8 mmoL/L (3.5-5.1); Sodium 139 mmol/L (136-145); Thyroid Stimulating Hormone 6.88 uIU/ml (0.358-3.740); Total Protein,Serum 7.5 gm/dL (6.4-8.2)
[2018-10-10 10:31] VITALS: BP 130/74; PULSE 81; RESP 18; TEMP 36.6; O2SAT 97
[2018-10-10 11:01] VITALS: BP 126/78; PULSE 80; RESP 18; O2SAT 97
[2018-10-10 11:15] VITALS: BP 128/77; PULSE 74; RESP 18; O2SAT 96
[2018-10-11 17:15] LABS: Adrenocorticotropic Hormone 96.1 pg/mL (7.2-63.3)
== END 2018-10-10 11:15 | disposition home or self-care (01) ==
LOC: INF 08:25
PROVIDERS: Visit Provider Internal Medicine Medical Oncology
DX: Z51.11 Encounter for antineoplastic chemotherapy (principal); C64.9 Malignant neoplasm of unspecified kidney, except renal pelvis; C80.0 Disseminated malignant neoplasm, unspecified
CPT/HCPCS: 80053; 82024; 82533; 84443; 85025; 96413; J9299

== ENCOUNTER → 2018-10-28 09:31 | Outpatient (CLI) | payer BC, SELFPAY ==
--- NOTE | 2018-10-28 | CT_ITS ---
CT chest w con HISTORY: Follow-up renal cell carcinoma ITS.REASON: RENAL CELL CARCINOMA ORDERING PHYSICIAN: Luz Marina Abreu MD PATIENT AGE: 53 years COMPARISON: 08/13/2018 Technique: Contrast Used:75ml Optiray 350 Axial images were obtained. Sagittal, and coronal reformatted images are also generated and reviewed. All CT scans at the facility use one or more dose reduction, viz: automated exposure control, ma/kV adjustment per patient size (including targeted exams where dose is matched to indication, i.e. head), or iterative reconstruction technique. FINDINGS: Left paratracheal and supraclavicular adenopathy is once again noted and has decreased in size overall compared to the previous exam measuring 4.6 x 3 cm previously 5.8 x 3.7 cm.. There is extensive mediastinal adenopathy which is also shown some improvement with the largest area of toney involvement in the left aspect of the mediastinum at the level of the left pulmonary artery. This measures 4 x 3.2 cm previously 5.1 x 4 cm. Small nodes in the right hilum are present but have decreased in size. Atelectatic/fibrotic changes are once again noted in the right upper lobe and are unchanged. There is a nodule in the right lung base posteriorly which measures 4 mm previously at 11 mm. There are subpleural opacities along the right posterior hemithorax. These are nonspecific and are of questioned clinical significance not readily apparent previously. Continued follow-up suggested. There are degenerative changes in the thoracic spine. There is mild axillary adenopathy on the left which has shown some improvement. IMPRESSION: 1. There is persistent but overall improvement in the adenopathy in the left paratracheal and supraclavicular region and within the mediastinum and ronny as well as left axilla. 2. Decrease in size of right lower lobe pulmonary nodule. Other previously noted smaller nodules have also decreased in size and are no longer perceptible. There is some nodularity in the posterior pleural region on the right which is nonspecific
--- NOTE | 2018-10-28 | CT_ITS ---
CT abdomen pelvis w con CLINICAL INDICATION: Follow-up renal cell carcinoma ITS.REASON: RENAL CELL CARCINOMA ORDERING PHYSICIAN: Luz Marina Abreu MD PATIENT AGE: 53 years COMPARISON: 08/13/2018 TECHNIQUE: Contrast Used:75ml Optiray 350 Oral Contrast: 450ml Redicat Axial images obtained with sagittal and coronal reformats. All CT scans at the facility use one or more dose reduction, viz: automated exposure control, ma/kV adjustment per patient size (including targeted exams where dose is matched to indication, i.e. head), or iterative reconstruction technique. FINDINGS: There are several hypoattenuating lesions of the liver the largest of which is in the right hepatic lobe anteriorly at 2.5 x 1.4 cm not significantly changed. No new nodules are evident. Spleen, adrenal glands, and right kidney have an unremarkable appearance. Pancreatic atrophy without evidence of pancreatic mass. The gastric wall does appear thickened but could be due to nondistention There is a heterogeneous soft tissue mass along the upper pole the left kidney measuring 5.3 x 4.8 cm previously 5.6 x 4.9 cm. There is some dystrophic calcification noted within this mass. There is some increased soft tissue density posterior to the left renal vein system with adenopathy within the retroperitoneum not significant change. The renal vein appears patent on the left No intestinal obstruction or free air is evident. No pelvic mass or abnormal fluid collection. There is been prior hysterectomy. IMPRESSION: 1. Overall no change in the multiple liver lesions. 2. Left renal mass once again noted and may be very slightly smaller. No change in the retroperitoneal adenopathy.
[2018-10-28 10:15] LABS: Basophils # 0.1 K/mm3 (0-0.2); Basophils % 1.4 % (0.1-2.0); Eosinophils # 0.3 K/mm3 (0.0-0.4); Eosinophils % 6.7 % (0.1-12.0); Hematocrit 37.5 % (37.0-47.0); Hemoglobin 11.9 g/dL (12.2-16.2); Lymphocytes # 1.1 K/mm3 (0.7-4.5); Lymphocytes % 22.3 % (10-50); Mean Corpuscular HGB Conc 31.6 g/dL (31.8-35.4); Mean Corpuscular Hemoglobin 27.7 pg (27.0-31.2); Mean Corpuscular Volume 87.5 fl (81-99); Mean Platelet Volume 8.2 fl (7.4-10.4); Monocytes # 0.4 K/mm3 (0.1-1.0); Monocytes % 7.8 % (1.7-9.3); Neutrophils % 61.7 % (37.0-80.0); Platelet Count 313 K/mm3 (142-424); Red Blood Count 4.29 M/mm3 (4.20-5.40); Red Cell Distribution Width 13.8 % (11.5-17.5); White Blood Count 4.9 K/mm3 (4.8-10.8)
[2018-10-28 10:27] LABS: Alanine Aminotransferase 17 U/L (12-78); Albumin Level 3.5 gm/dL (3.4-5.0); Alkaline Phosphatase 116 U/L (46-116); Anion Gap 10.2 mEq/L (5-15); Aspartate Amino Transferase 8 U/L (15-37); Bilirubin,Total 0.3 mg/dL (0.2-1.0); Blood Urea Nitrogen 19 mg/dL (7-18); Carbon Dioxide 31 mmol/L (21.0-32.0); Chloride 103 mmol/L (98-107); Creatinine,Serum 0.91 mg/dL (0.55-1.02); Estimated Glomerular Filt Rate 64 ml/min (>60); GFR (African American) 78 ML/MIN (>60); Globulin 3.6 gm/dl (1.3-3.2); Glucose 102 mg/dL (74-106); Potassium 4.2 mmoL/L (3.5-5.1); Sodium 140 mmol/L (136-145); Total Protein,Serum 7.1 gm/dL (6.4-8.2)
== END ==
PROVIDERS: PCP Family Medicine; Visit Provider Internal Medicine Medical Oncology
DX: C64.9 Malignant neoplasm of unspecified kidney, except renal pelvis (principal)
CPT/HCPCS: 36415; 71260; 74177; 80053; 85025; Q9967

== ENCOUNTER 2018-11-07 09:34 | Outpatient (CLI) | payer BC, SELFPAY ==
[2018-11-07 09:30] VITALS: BMI 22.9
[2018-11-07 10:21] LABS: Thyroid Stimulating Hormone 3.66 uIU/ml (0.358-3.740)
[2018-11-07 10:47] LABS: Basophils # 0.1 K/mm3 (0-0.2); Basophils % 1.1 % (0.1-2.0); Eosinophils # 0.4 K/mm3 (0.0-0.4); Eosinophils % 7.9 % (0.1-12.0); Hematocrit 35.6 % (37.0-47.0); Hemoglobin 11.6 g/dL (12.2-16.2); Lymphocytes # 1.1 K/mm3 (0.7-4.5); Lymphocytes % 24.8 % (10-50); Mean Corpuscular HGB Conc 32.7 g/dL (31.8-35.4); Mean Corpuscular Hemoglobin 28.2 pg (27.0-31.2); Mean Corpuscular Volume 86.3 fl (81-99); Mean Platelet Volume 6.9 fl (7.4-10.4); Monocytes # 0.3 K/mm3 (0.1-1.0); Neutrophils # 2.6 K/mm3 (1.8-7.8); Neutrophils % 59.2 % (37.0-80.0); Platelet Count 294 K/mm3 (142-424); Red Blood Count 4.12 M/mm3 (4.20-5.40); Red Cell Distribution Width 13.6 % (11.5-17.5); White Blood Count 4.5 K/mm3 (4.8-10.8)
[2018-11-07 10:58] LABS: Alanine Aminotransferase 18 U/L (12-78); Albumin Level 3.5 gm/dL (3.4-5.0); Alkaline Phosphatase 128 U/L (46-116); Aspartate Amino Transferase 13 U/L (15-37); Bilirubin,Total 0.3 mg/dL (0.2-1.0); Blood Urea Nitrogen 16 mg/dL (7-18); Calcium 8.9 mg/dL (8.5-10.1); Carbon Dioxide 30 mmol/L (21.0-32.0); Chloride 103 mmol/L (98-107); Creatinine Clearance Estimated 77 mL/min (50-200); Creatinine,Serum 0.82 mg/dL (0.55-1.02); Estimated Glomerular Filt Rate 72 ml/min (>60); GFR (African American) 88 ML/MIN (>60); Globulin 3.5 gm/dl (1.3-3.2); Glucose 105 mg/dL (74-106); Sodium 141 mmol/L (136-145)
[2018-11-07 11:32] VITALS: BP 130/71; PULSE 66; RESP 18; TEMP 36.6; O2SAT 99
[2018-11-07 12:02] VITALS: BP 128/73; PULSE 69; RESP 18; O2SAT 97
[2018-11-07 12:15] VITALS: BP 130/72; PULSE 65; RESP 18; O2SAT 98
[2018-11-08 20:35] LABS: Adrenocorticotropic Hormone 36.9 pg/mL (7.2-63.3)
== END 2018-11-07 12:15 | disposition home or self-care (01) ==
LOC: INF 09:34
PROVIDERS: Visit Provider Internal Medicine Medical Oncology
DX: Z51.11 Encounter for antineoplastic chemotherapy (principal); C64.9 Malignant neoplasm of unspecified kidney, except renal pelvis; C80.0 Disseminated malignant neoplasm, unspecified
CPT/HCPCS: 80053; 82024; 82533; 84443; 85025; 96413; J9299

== ENCOUNTER 2018-11-11 15:00 | Outpatient (RCR) | payer BC, SELFPAY ==
--- NOTE | 2018-06-27 10:35 | [facility].PTOPEV ---
PT Outpatient Evaluation Rehab PT Outpatient Evaluation Start: 06/27/18 09:30 Freq: Status: Active Protocol: Document 06/27/18 10:01 PAM (Rec: 06/27/18 10:20 PAM [id number]) Electronically Signed By Reji Mars, PT 06/27/18 10:01 Outpatient Therapy Subjective History Subjective History Patient is a 52 year old female presenting to outpatient PT with reports of chronic bilateral shoulder pain, decreased mobility and decreased strength that has progessively gotten worse over the past 2 month. Pt was diagnosed with renal cell carcinoma 04/2017. She reports that most recently her cancer has spread to her liver and lungs. She is currently taking infusion therapy and reports that masses are decreasing in size. She also complains of pain/tenderness around mass of lymphatic tissue in the L anterior cervical/upper trapezius area. No other comorbidites to report. Pt does not complaint of BLE pain/weakness/balance issues. Chief Complaint Pain Stiff Clicks Weakness Symptom Type Sharp Symptoms Relieved By Rest/Positioning Prescription Meds Symptoms Aggravated By Physical Activity Lifting Prior Functional Limitations None Current Functional Limitations Reaching Lifting Housework Dressing Driving Sleeping Recreation Activity Symptom Description Constant but Variable Level of pain today (0-10) 6 Pain scale - at its best (0-10) 4 Pain scale - at its worst (0-10) 8 Shoulder/Elbow Eval Shoulder Objective Measurements Palpation Tenderness Shoulder Palpation Findings Tenderness Shoulder Palpation Overall Comment Bilateral ACJ Posture Shoulder Posture Sitting Position (L) Forward (R) Forward Scapula Posture Sitting Position (L) Protracted
== END 2018-11-11 15:05 | disposition home or self-care (01) ==
LOC: PT 15:00
PROVIDERS: Visit Provider Internal Medicine Medical Oncology
DX: C64.9 Malignant neoplasm of unspecified kidney, except renal pelvis (principal); R53.1 Weakness
CPT/HCPCS: 97010; 97110; 97140; 97163; 97164

== ENCOUNTER → 2018-11-18 09:14 | Outpatient (CLI) | payer BC, SELFPAY ==
--- NOTE | 2018-11-18 09:38 | MR_ITS ---
PROCEDURE: MR SACRUM WO/W CON CLINICAL INDICATION: PAIN IN COCCYX, RENAL CELL Tailbone pain, metastatic renal cell carcinoma COMPARISON: ABDPELW CT abdomen pelvis w con from 10/28/2018 TECHNIQUE: Multiplanar multi-echo pre and post enhanced images are obtained. FINDINGS: The sacrum has an unremarkable appearance. No destructive lesions are evident. No abnormal enhancement.. No overlying soft tissue mass or bony destruction. The presacral fat plane is well preserved. There is degenerative disc disease with bulging disc at L5-S1. This is slightly eccentric toward the left with left lateral recess and foraminal narrowing. This abuts the anterior aspect of the left S2 nerve root. No abscess or inflammatory changes evident at the sacrum. No fracture or dislocation. No evidence of insufficiency fracture IMPRESSION: Coccyx unremarkable MRI of the sacrum without and with contrast. No bony destructive lesions evident. Degenerate disc disease L5-S1 with bulging disc eccentric to the left along the facet ligamentum hypertrophy with moderate left lateral recess and foraminal narrowing. There is mild right lateral recess and foraminal narrowing as well. Dictated by: Brian Mayers MD 11/19/2018 09:55 Signed by: <Electronically signed by Brian Mayers MD in [place]> 11/19/2018 09:55
[2018-11-18 09:41] LABS: Basophils # 0.1 K/mm3 (0-0.2); Basophils % 1.1 % (0.1-2.0); Eosinophils # 0.4 K/mm3 (0.0-0.4); Eosinophils % 8.7 % (0.1-12.0); Hematocrit 36.4 % (37.0-47.0); Hemoglobin 11.5 g/dL (12.2-16.2); Lymphocytes # 1.4 K/mm3 (0.7-4.5); Lymphocytes % 27.6 % (10-50); Mean Corpuscular HGB Conc 31.7 g/dL (31.8-35.4); Mean Corpuscular Hemoglobin 27.7 pg (27.0-31.2); Mean Corpuscular Volume 87.4 fl (81-99); Mean Platelet Volume 8.1 fl (7.4-10.4); Monocytes # 0.4 K/mm3 (0.1-1.0); Monocytes % 7.1 % (1.7-9.3); Neutrophils # 2.7 K/mm3 (1.8-7.8); Neutrophils % 55.6 % (37.0-80.0); Platelet Count 327 K/mm3 (142-424); Red Blood Count 4.16 M/mm3 (4.20-5.40); Red Cell Distribution Width 13.8 % (11.5-17.5); White Blood Count 4.9 K/mm3 (4.8-10.8)
[2018-11-18 10:02] LABS: Alanine Aminotransferase 17 U/L (12-78); Albumin Level 3.4 gm/dL (3.4-5.0); Albumin/Globulin Ratio 0.9 (1.1-1.8); Alkaline Phosphatase 118 U/L (46-116); Aspartate Amino Transferase 11 U/L (15-37); Bilirubin,Total 0.3 mg/dL (0.2-1.0); Blood Urea Nitrogen 17 mg/dL (7-18); Carbon Dioxide 30 mmol/L (21.0-32.0); Chloride 102 mmol/L (98-107); Creatinine,Serum 0.88 mg/dL (0.55-1.02); Estimated Glomerular Filt Rate 67 ml/min (>60); GFR (African American) 81 ML/MIN (>60); Globulin 3.7 gm/dl (1.3-3.2); Glucose 104 mg/dL (74-106); Sodium 138 mmol/L (136-145); Thyroid Stimulating Hormone 6.93 uIU/ml (0.358-3.740); Total Protein,Serum 7.1 gm/dL (6.4-8.2)
== END ==
PROVIDERS: PCP Family Medicine; Visit Provider Internal Medicine Medical Oncology
DX: M53.3 Sacrococcygeal disorders, not elsewhere classified (principal); C65.9 Malignant neoplasm of unspecified renal pelvis
CPT/HCPCS: 36415; 72197; 80053; 84443; 85025; A9576

== ENCOUNTER 2018-12-05 09:15 | Outpatient (CLI) | payer BC, SELFPAY ==
[2018-12-05 09:16] VITALS: BMI 23.3
[2018-12-05 09:43] LABS: Basophils # 0.1 K/mm3 (0-0.2); Basophils % 1.5 % (0.1-2.0); Eosinophils # 0.4 K/mm3 (0.0-0.4); Eosinophils % 7.3 % (0.1-12.0); Hematocrit 35.1 % (37.0-47.0); Hemoglobin 11.6 g/dL (12.2-16.2); Lymphocytes # 1.2 K/mm3 (0.7-4.5); Lymphocytes % 26.3 % (10-50); Mean Corpuscular HGB Conc 33.1 g/dL (31.8-35.4); Mean Corpuscular Hemoglobin 28.8 pg (27.0-31.2); Mean Platelet Volume 7.5 fl (7.4-10.4); Monocytes # 0.3 K/mm3 (0.1-1.0); Monocytes % 6.6 % (1.7-9.3); Neutrophils # 2.8 K/mm3 (1.8-7.8); Neutrophils % 58.4 % (37.0-80.0); Platelet Count 303 K/mm3 (142-424); Red Blood Count 4.03 M/mm3 (4.20-5.40); Red Cell Distribution Width 13.8 % (11.5-17.5); White Blood Count 4.7 K/mm3 (4.8-10.8)
[2018-12-05 10:13] LABS: Alanine Aminotransferase 17 U/L (12-78); Albumin Level 3.7 gm/dL (3.4-5.0); Albumin/Globulin Ratio 1.1 (1.1-1.8); Alkaline Phosphatase 137 U/L (46-116); Anion Gap 12.4 mEq/L (5-15); Aspartate Amino Transferase 17 U/L (15-37); Bilirubin,Total 0.3 mg/dL (0.2-1.0); Blood Urea Nitrogen 26 mg/dL (7-18); Calcium 8.9 mg/dL (8.5-10.1); Carbon Dioxide 29 mmol/L (21.0-32.0); Chloride 102 mmol/L (98-107); Creatinine Clearance Estimated 82 mL/min (50-200); Creatinine,Serum 0.78 mg/dL (0.55-1.02); Estimated Glomerular Filt Rate 77 ml/min (>60); GFR (African American) 93 ML/MIN (>60); Globulin 3.4 gm/dl (1.3-3.2); Glucose 111 mg/dL (74-106); Potassium 4.4 mmoL/L (3.5-5.1); Sodium 139 mmol/L (136-145); Thyroid Stimulating Hormone 3.63 uIU/ml (0.358-3.740); Total Protein,Serum 7.1 gm/dL (6.4-8.2)
[2018-12-05 10:53] VITALS: BP 129/77; PULSE 68; RESP 18; TEMP 36.9; O2SAT 100
[2018-12-05 11:15] VITALS: BP 123/75; PULSE 65; RESP 18; O2SAT 100
[2018-12-05 11:35] VITALS: BP 129/77; PULSE 65; RESP 18; O2SAT 100
[2018-12-06 17:34] LABS: Adrenocorticotropic Hormone 53.3 pg/mL (7.2-63.3)
== END 2018-12-05 11:35 | disposition home or self-care (01) ==
LOC: INF 09:15
PROVIDERS: Visit Provider Internal Medicine Medical Oncology
DX: Z51.11 Encounter for antineoplastic chemotherapy (principal); C64.9 Malignant neoplasm of unspecified kidney, except renal pelvis; C80.0 Disseminated malignant neoplasm, unspecified
CPT/HCPCS: 80053; 82024; 82533; 84443; 85025; 96413; J9299

== ENCOUNTER → 2018-12-16 11:16 | Outpatient (POV) | payer BC, SELFPAY ==
[2018-12-16 11:58] VITALS: BP 137/91; PULSE 80; RESP 18; O2SAT 98; BMI 24.1
--- NOTE | 2018-12-16 12:57 | HMH.PMCON ---
Assessment and Plan (1) Piriformis syndrome Current visit: Yes Status: Chronic Category: Medical Code(s): G57.00 - Lesion of sciatic nerve, unspecified lower limb (2) Degenerative joint disease (DJD) of lumbar spine Current visit: Yes Status: Acute Category: Medical Code(s): M47.816 - Spondylosis without myelopathy or radiculopathy, lumbar region - Assessment and plan all Dx Assessment and Plan for all problems:: We will schedule bilateral piriformis injections for the patient will see if this is beneficial for her if not we will move forward with potential coccygeal block. I will follow-up with the patient after injection reassess her symptoms that time she is been instructed to call the office if she has any issues prior to her appointment. Patient unable to take anti-inflammatories due to kidney cancer. Patient is continuing a home stretching program. Dr. Daniels has reviewed this note and agrees with this plan of care. This note was dictated using voice recognition software and may contain errors or omissions HPI - Data of Consult Consult date: 12/16/18 Requesting Physician: Sanjana Sosa APRN Primary Care Provider: Guillaume Toro MD - Consult Narrative Reason for consult: Low back pain History of present illness: Ms. Carter is a 53 year old female who presents today for consultation in regards to her low back pain. Patient has pain when sitting is over top of her sit bones . She rates her pain a 2 out of 10 however it is become an issue with her activities of daily life. Patient is battling cancer and doing well at this time patient has tried multiple medication however it does not help with this pain. She describes it is achy and sore. She denies numbness and tingling CC: Sanjana Sosa APRN [facility] History I have reviewed the patient's past medical history: Yes Medical History: Reports:: Cancer, Hyperlipidemia, Hypertension Denies:: Congestive Heart Failure, Coronary Artery Disease, Diabetes Mellitus Type 1, Diabetes Mellitus Type 2, MRSA, Seizures *Have you ever received a pneumonia vaccine?: Yes *Have you received a flu vaccine this season?: Yes Other Medical History: Reports: Anemia, Blood Transfusion Reaction, Chemotherapy, Hypothyroidism Other Surgeries: Yes: , Hysterectomy-Total Amputation: No Fractures: No - *Social History Smoking Status: Never smoker Tobacco Type: cigarettes #Yrs smoked (if former smoker): 20 Alcohol Intake: never Substance Use Type: denies use *Occupational Status:: other Housing: house Household Members: spouse, children *Travel in the last 8 weeks: None Family Hx:: Cancer, Heart Attack, Hypertension, Stroke Review of Systems - Review of Systems ROS General: no recent weight change, no fever, no sleep disturbances Respiratory: no cough, no shortness of air, no recurring pulmonary infections Cardiovascular/Peripheral Vascular: No chest pain, No palpitations, no edema, no shortness of breath. Gastrointestinal: no incontinence, normal bowel movements reported Genitourinary: no incontinence Musculoskeletal: Piriformis pain Psychiatric: normal mood/ affect, Neurological: [denies weakness in extremities], [denies balance issues] Meds Home Medications Medication Instructions Recorded Confirmed Type Oxycodone HCl [OxyIR 5mg tablet] 5 mg PO QIDP PRN 06/23/17 12/05/18 History fentanyl 12 mcg/hr transdermal 1 patch TRANSDERMA Q72H each 12/27/17 12/05/18 History patch levothyroxine 112 mcg capsule 112 mcg PO DAILY 02/28/18 12/05/18 History multivitamin with minerals 2 tab PO DAILY 02/28/18 12/05/18 History combination no.55 chewable tablet ondansetron HCl 8 mg tablet 8 mg PO BID PRN 02/28/18 12/05/18 History vitamin B complex tablet 1 tab PO DAILY 02/28/18 12/05/18 History Estradiol 2 mg PO DAILY 07/03/18 12/05/18 History duloxetine 20 mg capsule,delayed 20 mg PO BID 10/10/18 12/05/18 History release hydrOXYzine HCl [Hyd
--- NOTE | 2018-12-16 13:02 | P.CONS_ITS ---
Assessment and Plan (1) Piriformis syndrome Current visit: Yes Status: Chronic Category: Medical Code(s): G57.00 - Lesion of sciatic nerve, unspecified lower limb (2) Degenerative joint disease (DJD) of lumbar spine Current visit: Yes Status: Acute Category: Medical Code(s): M47.816 - Spondylosis without myelopathy or radiculopathy, lumbar region - Assessment and plan all Dx Assessment and Plan for all problems:: We will schedule bilateral piriformis injections for the patient will see if this is beneficial for her if not we will move forward with potential coccygeal block. I will follow-up with the patient after injection reassess her symptoms that time she is been instructed to call the office if she has any issues prior to her appointment. Patient unable to take anti-inflammatories due to kidney cancer. Patient is continuing a home stretching program. Dr. Daniels has reviewed this note and agrees with this plan of care. This note was dictated using voice recognition software and may contain errors or omissions HPI - Data of Consult Consult date: 12/16/18 Requesting Physician: Sanjana Sosa APRN Primary Care Provider: Guillaume Toro MD - Consult Narrative Reason for consult: Low back pain History of present illness: Ms. Carter is a 53 year old female who presents today for consultation in regards to her low back pain. Patient has pain when sitting is over top of her sit bones . She rates her pain a 2 out of 10 however it is become an issue with her activities of daily life. Patient is battling cancer and doing well at this time patient has tried multiple medication however it does not help with this pain. She describes it is achy and sore. She denies numbness and tingling CC: Sanjana Sosa APRN [facility] History I have reviewed the patient's past medical history: Yes Medical History: Reports:: Cancer, Hyperlipidemia, Hypertension Denies:: Congestive Heart Failure, Coronary Artery Disease, Diabetes Mellitus Type 1, Diabetes Mellitus Type 2, MRSA, Seizures *Have you ever received a pneumonia vaccine?: Yes *Have you received a flu vaccine this season?: Yes Other Medical History: Reports: Anemia, Blood Transfusion Reaction, Chemotherapy, Hypothyroidism Other Surgeries: Yes: , Hysterectomy-Total Amputation: No Fractures: No - *Social History Smoking Status: Never smoker Tobacco Type: cigarettes #Yrs smoked (if former smoker): 20 Alcohol Intake: never Substance Use Type: denies use *Occupational Status:: other Housing: house Household Members: spouse, children *Travel in the last 8 weeks: None Family Hx:: Cancer, Heart Attack, Hypertension, Stroke Review of Systems - Review of Systems ROS General: no recent weight change, no fever, no sleep disturbances Respiratory: no cough, no shortness of air, no recurring pulmonary infections Cardiovascular/Peripheral Vascular: No chest pain, No palpitations, no edema, no shortness of breath. Gastrointestinal: no incontinence, normal bowel movements reported Genitourinary: no incontinence Musculoskeletal: Piriformis pain Psychiatric: normal mood/ affect, Neurological: [denies weakness in extremities], [denies balance issues] Meds Home Medications Medication Instructions Recorded Confirmed Type Oxycodone HCl [OxyIR 5mg tablet] 5 mg PO QIDP PRN 06/23/17 12/05/18 History fentanyl 12 mcg/hr transdermal 1 patch TRANSDERMA Q72H each 12/27/17 12/05/18 History patch
== END ==
PROVIDERS: PCP Family Medicine; Visit Provider Clinical Nurse Specialist Family Health
DX: G57.00 Lesion of sciatic nerve, unspecified lower limb (principal); M47.816 Spondylosis without myelopathy or radiculopathy, lumbar region
CPT/HCPCS: 99202

== ENCOUNTER 2019-01-02 10:11 | Outpatient (CLI) | payer BC, SELFPAY ==
[2019-01-02 10:15] VITALS: BMI 24.1
[2019-01-02 10:43] LABS: Basophils # 0.1 K/mm3 (0-0.2); Basophils % 0.6 % (0.1-2.0); Eosinophils # 0.2 K/mm3 (0.0-0.4); Eosinophils % 1.7 % (0.1-12.0); Hematocrit 38.9 % (37.0-47.0); Hemoglobin 12.3 g/dL (12.2-16.2); Lymphocytes # 1.3 K/mm3 (0.7-4.5); Lymphocytes % 14.8 % (10-50); Mean Corpuscular HGB Conc 31.6 g/dL (31.8-35.4); Mean Platelet Volume 7.4 fl (7.4-10.4); Monocytes # 0.3 K/mm3 (0.1-1.0); Monocytes % 3.7 % (1.7-9.3); Neutrophils # 7.1 K/mm3 (1.8-7.8); Neutrophils % 79.2 % (37.0-80.0); Platelet Count 318 K/mm3 (142-424); Red Blood Count 4.22 M/mm3 (4.20-5.40)
[2019-01-02 11:05] LABS: Alanine Aminotransferase 14 U/L (12-78); Albumin Level 3.9 gm/dL (3.4-5.0); Albumin/Globulin Ratio 0.9 (1.1-1.8); Alkaline Phosphatase 144 U/L (46-116); Aspartate Amino Transferase 10 U/L (15-37); Bilirubin,Total 0.3 mg/dL (0.2-1.0); Blood Urea Nitrogen 21 mg/dL (7-18); Calcium 9.2 mg/dL (8.5-10.1); Carbon Dioxide 29 mmol/L (21.0-32.0); Chloride 102 mmol/L (98-107); Creatinine Clearance Estimated 93 mL/min (50-200); Creatinine,Serum 0.71 mg/dL (0.55-1.02); Estimated Glomerular Filt Rate 85 ml/min (>60); GFR (African American) 103 ML/MIN (>60); Globulin 4.2 gm/dl (1.3-3.2); Glucose 112 mg/dL (74-106); Sodium 139 mmol/L (136-145); Thyroid Stimulating Hormone 1.72 uIU/ml (0.358-3.740); Total Protein,Serum 8.1 gm/dL (6.4-8.2)
[2019-01-02 12:05] VITALS: BP 141/74; PULSE 62; RESP 18; O2SAT 100
[2019-01-02 12:20] VITALS: BP 139/79; PULSE 62; RESP 18
[2019-01-02 12:35] VITALS: BP 140/76; PULSE 62; RESP 18
[2019-01-02 12:45] VITALS: BP 138/83; PULSE 62; RESP 18
[2019-01-03 17:16] LABS: Adrenocorticotropic Hormone 7.3 pg/mL (7.2-63.3)
== END 2019-01-02 12:55 | disposition home or self-care (01) ==
LOC: INF 10:11
PROVIDERS: Visit Provider Internal Medicine Medical Oncology
DX: Z51.11 Encounter for antineoplastic chemotherapy (principal); C64.9 Malignant neoplasm of unspecified kidney, except renal pelvis; C80.0 Disseminated malignant neoplasm, unspecified
CPT/HCPCS: 80053; 82024; 82533; 84443; 85025; 96413; J9299

== ENCOUNTER → 2019-01-27 10:37 | Outpatient (POV) | payer BC, SELFPAY ==
[2019-01-27 12:18] VITALS: BP 125/89; PULSE 75; RESP 18; O2SAT 99; BMI 24.1
--- NOTE | 2019-01-27 13:13 | HMH.PAINSOAP ---
[facility] Pain Management SOAP Note Subjective:: Patient is a pleasant 53-year-old white female who presents today for follow-up after bilateral piriformis injections. Patient did not get much relief with this. Patient has pain in her tailbone region. She rates her pain today a 3 out of 10 however it can fluctuate. It becomes an issue with her activities of daily life. She is battling cancer and has recently started to wean off of her fentanyl patch from her oncologist. She has not tolerated this well. Patient and I have talked about a coccygeal block. We also talked about utilizing gabapentin. ROS General: no recent weight change, no fever, no sleep disturbances Respiratory: no cough, no shortness of air, no recurring pulmonary infections Cardiovascular/Peripheral Vascular: No chest pain, No palpitations, no edema, no shortness of breath. Gastrointestinal: no new onset incontinence, normal bowel movements reported Genitourinary: no new onset incontinence Musculoskeletal: One low back, coccygeal pain Psychiatric: normal mood/ affect, Neurological: [denies new onset weakness in extremities], [denies new onset balance issues] Objective:: Physical Exam General: Alert and oriented x3, no acute distress, pleasant and cooperative, [on room air] Lungs: Resps E/U, Symmetrical chest expansion, Eyes: PERRL Musculoskeletal: Flexion and extension of lumbar spine somewhat guarded secondary to pain, tenderness over coccygeal region deep tendon reflexes normal, strength in upper and lower extremities [5/5], slightly antalgic gait noted Neurological: speech clear, it infrastructure architect equal, no gross sensory deficits Assessment:: Coccygeal neuralgia Plan:: We will set the patient up for coccygeal block. Patient is not on any anticoagulation therapy. We will also call her gabapentin 100 mg 1-[address] Daniels has reviewed this note and agrees with this plan of care. This note was dictated using voice recognition software and may contain errors or omissions [facility] History I have reviewed the patient's past medical history: Yes Medical History: Reports:: Cancer, Hyperlipidemia, Hypertension Denies:: Congestive Heart Failure, Coronary Artery Disease, Diabetes Mellitus Type 1, Diabetes Mellitus Type 2, MRSA, Seizures *Have you ever received a pneumonia vaccine?: No *Have you received a flu vaccine this season?: Yes Other Medical History: Reports: Anemia, Blood Transfusion Reaction, Chemotherapy, Hormone Therapy, Hypothyroidism, Radiation Therapy Other Surgeries: Yes: , Hysterectomy-Total, Other (WISDOM TEETH REMOVAL) Amputation: No Fractures: No - *Social History Smoking Status: Never smoker Tobacco Type: cigarettes #Yrs smoked (if former smoker): 20 Alcohol Intake: never Substance Use Type: denies use *Occupational Status:: other Housing: house Household Members: spouse, children *Travel in the last 8 weeks: None Family Hx:: Cancer, Heart Attack, Hypertension, Stroke
--- NOTE | 2019-01-27 13:16 | P.CONS_ITS ---
[facility] Pain Management SOAP Note Subjective:: Patient is a pleasant 53-year-old white female who presents today for follow-up after bilateral piriformis injections. Patient did not get much relief with this. Patient has pain in her tailbone region. She rates her pain today a 3 out of 10 however it can fluctuate. It becomes an issue with her activities of daily life. She is battling cancer and has recently started to wean off of her fentanyl patch from her oncologist. She has not tolerated this well. Patient and I have talked about a coccygeal block. We also talked about utilizing gabapentin. ROS General: no recent weight change, no fever, no sleep disturbances Respiratory: no cough, no shortness of air, no recurring pulmonary infections Cardiovascular/Peripheral Vascular: No chest pain, No palpitations, no edema, no shortness of breath. Gastrointestinal: no new onset incontinence, normal bowel movements reported Genitourinary: no new onset incontinence Musculoskeletal: One low back, coccygeal pain Psychiatric: normal mood/ affect, Neurological: [denies new onset weakness in extremities], [denies new onset balance issues] Objective:: Physical Exam General: Alert and oriented x3, no acute distress, pleasant and cooperative, [on room air] Lungs: Resps E/U, Symmetrical chest expansion, Eyes: PERRL Musculoskeletal: Flexion and extension of lumbar spine somewhat guarded secondary to pain, tenderness over coccygeal region deep tendon reflexes normal, strength in upper and lower extremities [5/5], slightly antalgic gait noted Neurological: speech clear, travel freight and passenger agent equal, no gross sensory deficits Assessment:: Coccygeal neuralgia Plan:: We will set the patient up for coccygeal block. Patient is not on any anticoagulation therapy. We will also call her gabapentin 100 mg 1-[address] Daniels has reviewed this note and agrees with this plan of care. This note was dictated using voice recognition software and may contain errors or omissions [facility] History I have reviewed the patient's past medical history: Yes Medical History: Reports:: Cancer, Hyperlipidemia, Hypertension Denies:: Congestive Heart Failure, Coronary Artery Disease, Diabetes Mellitus Type 1, Diabetes Mellitus Type 2, MRSA, Seizures *Have you ever received a pneumonia vaccine?: No *Have you received a flu vaccine this season?: Yes Other Medical History: Reports: Anemia, Blood Transfusion Reaction, Chemotherapy, Hormone Therapy, Hypothyroidism, Radiation Therapy Other Surgeries: Yes: , Hysterectomy-Total, Other (WISDOM TEETH REMOVAL) Amputation: No Fractures: No - *Social History Smoking Status: Never smoker Tobacco Type: cigarettes #Yrs smoked (if former smoker): 20 Alcohol Intake: never Substance Use Type: denies use *Occupational Status:: other Housing: house Household Members: spouse, children *Travel in the last 8 weeks: None Family Hx:: Cancer, Heart Attack, Hypertension, Stroke
== END ==
PROVIDERS: PCP Family Medicine; Visit Provider Clinical Nurse Specialist Family Health
DX: G58.8 Other specified mononeuropathies (principal)
CPT/HCPCS: 99212

== ENCOUNTER 2019-01-31 09:17 | Outpatient (CLI) | payer BC, SELFPAY ==
[2019-01-31 09:17] VITALS: BMI 24.7
[2019-01-31 09:49] LABS: Basophils # 0.1 K/mm3 (0-0.2); Basophils % 0.9 % (0.1-2.0); Eosinophils # 0.3 K/mm3 (0.0-0.4); Eosinophils % 5.8 % (0.1-12.0); Hemoglobin 12.2 g/dL (12.2-16.2); Lymphocytes # 1.5 K/mm3 (0.7-4.5); Lymphocytes % 26.7 % (10-50); Mean Corpuscular HGB Conc 32.2 g/dL (31.8-35.4); Mean Corpuscular Hemoglobin 29.5 pg (27.0-31.2); Mean Corpuscular Volume 91.5 fl (81-99); Mean Platelet Volume 7.3 fl (7.4-10.4); Monocytes # 0.3 K/mm3 (0.1-1.0); Monocytes % 5.9 % (1.7-9.3); Neutrophils # 3.5 K/mm3 (1.8-7.8); Neutrophils % 60.8 % (37.0-80.0); Platelet Count 326 K/mm3 (142-424); Red Blood Count 4.15 M/mm3 (4.20-5.40); Red Cell Distribution Width 13.3 % (11.5-17.5); White Blood Count 5.7 K/mm3 (4.8-10.8)
[2019-01-31 10:16] LABS: Alanine Aminotransferase 15 U/L (12-78); Albumin Level 3.6 gm/dL (3.4-5.0); Albumin/Globulin Ratio 0.9 (1.1-1.8); Alkaline Phosphatase 125 U/L (46-116); Aspartate Amino Transferase 10 U/L (15-37); Bilirubin,Total 0.3 mg/dL (0.2-1.0); Blood Urea Nitrogen 15 mg/dL (7-18); Calcium 9.2 mg/dL (8.5-10.1); Carbon Dioxide 30 mmol/L (21.0-32.0); Chloride 104 mmol/L (98-107); Creatinine Clearance Estimated 76 mL/min (50-200); Creatinine,Serum 0.89 mg/dL (0.55-1.02); Estimated Glomerular Filt Rate 66 ml/min (>60); GFR (African American) 80 ML/MIN (>60); Globulin 3.8 gm/dl (1.3-3.2); Glucose 105 mg/dL (74-106); Sodium 138 mmol/L (136-145); Total Protein,Serum 7.4 gm/dL (6.4-8.2)
[2019-01-31 11:34] VITALS: BP 134/82; PULSE 67; RESP 18; TEMP 36.6; O2SAT 99
[2019-01-31 12:04] VITALS: BP 130/80; PULSE 69; RESP 18; O2SAT 99
[2019-01-31 12:15] VITALS: BP 128/79; PULSE 64; RESP 18; O2SAT 99
[2019-02-04 09:27] LABS: Adrenocorticotropic Hormone 27.1 pg/mL (7.2-63.3)
== END 2019-01-31 12:15 | disposition home or self-care (01) ==
LOC: INF 09:17
PROVIDERS: Visit Provider Internal Medicine Medical Oncology
DX: Z51.11 Encounter for antineoplastic chemotherapy (principal); C64.9 Malignant neoplasm of unspecified kidney, except renal pelvis; C80.0 Disseminated malignant neoplasm, unspecified
CPT/HCPCS: 80053; 82024; 82533; 84443; 85025; 96413; J9299

== ENCOUNTER → 2019-02-11 10:16 | Outpatient (CLI) | payer BC, SELFPAY ==
[2019-02-11 10:35] LABS: Basophils # 0.1 K/mm3 (0-0.2); Eosinophils # 0.2 K/mm3 (0.0-0.4); Eosinophils % 3.5 % (0.1-12.0); Hematocrit 36.7 % (37.0-47.0); Hemoglobin 11.8 g/dL (12.2-16.2); Lymphocytes # 1.1 K/mm3 (0.7-4.5); Lymphocytes % 20.8 % (10-50); Mean Corpuscular HGB Conc 32.2 g/dL (31.8-35.4); Mean Corpuscular Hemoglobin 29.6 pg (27.0-31.2); Mean Platelet Volume 8.6 fl (7.4-10.4); Monocytes # 0.3 K/mm3 (0.1-1.0); Monocytes % 6.2 % (1.7-9.3); Neutrophils # 3.6 K/mm3 (1.8-7.8); Neutrophils % 68.5 % (37.0-80.0); Platelet Count 267 K/mm3 (142-424); Red Blood Count 3.98 M/mm3 (4.20-5.40); White Blood Count 5.2 K/mm3 (4.8-10.8)
--- NOTE | 2019-02-11 10:41 | CT_ITS ---
PROCEDURE: CT CHEST WO/W CON CLINCAL INDICATION: RENAL CELL CA Follow-up renal cell carcinoma COMPARISON: CHESTW CT chest w con from 10/28/2018 TECHNIQUE: IV Contrast: 75ml Optiray 350 Axial images obtained with sagittal and coronal reformats. All CT scans at the facility use one or more dose reduction, viz: automated exposure control, ma/kV adjustment per patient size (including targeted exams where dose is matched to indication, i.e. head), or iterative reconstruction technique. FINDINGS: Left supraclavicular adenopathy once again noted not significantly changed. Left axillary adenopathy noted. This appears somewhat worse than when compared to the previous study. There are 2 nodes in the left axillary region which each measure approximately 1.8 x 1.6 cm. Previously these nodes measure 0.9 and 1.5 cm. The left paratracheal adenopathy has improved with a paratracheal lymph node measuring 1.4 x 1 cm previously 2.6 x 2.2 cm. Mediastinal adenopathy is somewhat improved with the largest node in the AP window measuring 2.5 x 3.5 cm previously measuring 2.8 x 4.3 cm. There are fibrotic changes in the right upper lobe the. A small fissural nodules present on the right and 3 mm unchanged. No suspicious pulmonary nodules are apparent. Previously described nodule in the right lung bases breast perceptible on today's study. Subpleural nodularity in the right lung base posteriorly once again noted also unchanged. There are degenerative changes in the thoracic spine with scattered areas of sclerosis unchanged. IMPRESSION: 1. Overall there has been improvement in the mediastinal, and paratracheal adenopathy with no change in the supraclavicular adenopathy.. Left axillary lymph nodes are slightly larger on today's exam. 2. Further decrease in size of right pulmonary nodule Dictated by: Brian Mayers MD 02/12/2019 06:54 Electronically signed by Brian Mayers MD in [place] 02/12/2019 06:54
--- NOTE | 2019-02-11 10:41 | CT_ITS ---
PROCEDURE: CT ABDOMEN PELVIS WO/W CON CLINICAL INDICATION: RENAL CELL CA Follow-up renal cell carcinoma COMPARISON: ABDPE CT abdomen pelvis w con from 10/28/2018 TECHNIQUE: IV Contrast: 75ML OPTIRAY 350 Oral Contrast 450ml Redicat Axial images obtained with sagittal and coronal reformats. All CT scans at the facility use one or more dose reduction, viz: automated exposure control, ma/kV adjustment per patient size (including targeted exams where dose is matched to indication, i.e. head), or iterative reconstruction technique. FINDINGS: Axial images are obtained without and with contrast. Previously noted multiple liver lesions are not significantly changed. No new liver lesions are evident. The spleen, the adrenal glands, gallbladder, and right kidney have an unremarkable appearance. No obvious pancreatic mass. Left renal mass once again noted along the upper pole of the left kidney with some dystrophic calcification. The mass measures 5.3 by 4.3 by 4.5 cm. There is increased soft tissue density along the left renal artery consistent with adenopathy or local spread. The left renal vein has an unremarkable appearance. No intestinal obstruction or free air. No evidence of appendicitis or diverticulitis. There is a mild amount of retained colonic feces. There are few small nodes in the periaortic region unchanged. No acute bony anomalies. IMPRESSION: Overall stable CT appearance of the abdomen. No change in left renal mass consistent with renal carcinoma. No change in the left periaortic adenopathy and multiple liver lesions. Dictated by: Brian Mayers MD 02/12/2019 07:04 Electronically signed by Brian Mayers MD in [facility] 02/12/2019 07:04
[2019-02-11 10:52] LABS: Alanine Aminotransferase 15 U/L (12-78); Albumin Level 3.7 gm/dL (3.4-5.0); Alkaline Phosphatase 118 U/L (46-116); Anion Gap 8.1 mEq/L (5-15); Aspartate Amino Transferase 13 U/L (15-37); Bilirubin,Total 0.4 mg/dL (0.2-1.0); Blood Urea Nitrogen 16 mg/dL (7-18); Carbon Dioxide 32 mmol/L (21.0-32.0); Chloride 101 mmol/L (98-107); Creatinine,Serum 0.89 mg/dL (0.55-1.02); Estimated Glomerular Filt Rate 66 ml/min (>60); GFR (African American) 80 ML/MIN (>60); Globulin 3.7 gm/dl (1.3-3.2); Glucose 108 mg/dL (74-106); Potassium 4.1 mmoL/L (3.5-5.1); Sodium 137 mmol/L (136-145); Total Protein,Serum 7.4 gm/dL (6.4-8.2)
== END ==
PROVIDERS: PCP Family Medicine; Visit Provider Internal Medicine Medical Oncology
DX: C64.9 Malignant neoplasm of unspecified kidney, except renal pelvis (principal); C65.9 Malignant neoplasm of unspecified renal pelvis
CPT/HCPCS: 36415; 71270; 74178; 80053; 85025; Q9967

== ENCOUNTER 2019-03-06 09:07 | Outpatient (CLI) | payer BC, SELFPAY ==
[2019-03-06 09:09] VITALS: BMI 25.0
[2019-03-06 09:39] LABS: Basophils # 0.1 K/mm3 (0-0.2); Basophils % 0.8 % (0.1-2.0); Eosinophils # 0.3 K/mm3 (0.0-0.4); Eosinophils % 4.7 % (0.1-12.0); Hematocrit 37.1 % (37.0-47.0); Hemoglobin 11.7 g/dL (12.2-16.2); Lymphocytes # 1.3 K/mm3 (0.7-4.5); Lymphocytes % 23.1 % (10-50); Mean Corpuscular HGB Conc 31.6 g/dL (31.8-35.4); Mean Corpuscular Hemoglobin 28.7 pg (27.0-31.2); Mean Corpuscular Volume 90.8 fl (81-99); Mean Platelet Volume 7.8 fl (7.4-10.4); Monocytes # 0.4 K/mm3 (0.1-1.0); Neutrophils # 3.6 K/mm3 (1.8-7.8); Neutrophils % 64.4 % (37.0-80.0); Platelet Count 261 K/mm3 (142-424); Red Blood Count 4.08 M/mm3 (4.20-5.40); Red Cell Distribution Width 12.7 % (11.5-17.5); White Blood Count 5.7 K/mm3 (4.8-10.8)
[2019-03-06 10:48] LABS: Alanine Aminotransferase 12 U/L (12-78); Albumin Level 3.5 gm/dL (3.4-5.0); Albumin/Globulin Ratio 0.9 (1.1-1.8); Alkaline Phosphatase 136 U/L (46-116); Anion Gap 11.3 mEq/L (5-15); Bilirubin,Total 0.2 mg/dL (0.2-1.0); Blood Urea Nitrogen 24 mg/dL (7-18); Calcium 8.6 mg/dL (8.5-10.1); Carbon Dioxide 29 mmol/L (21.0-32.0); Chloride 103 mmol/L (98-107); Creatinine Clearance Estimated 89 mL/min (50-200); Creatinine,Serum 0.77 mg/dL (0.55-1.02); Estimated Glomerular Filt Rate 78 ml/min (>60); GFR (African American) 94 ML/MIN (>60); Globulin 3.8 gm/dl (1.3-3.2); Glucose 99 mg/dL (74-106); Sodium 139 mmol/L (136-145); Thyroid Stimulating Hormone 6.01 uIU/ml (0.358-3.740); Total Protein,Serum 7.3 gm/dL (6.4-8.2)
[2019-03-06 10:49] LABS: Aspartate Amino Transferase 17 U/L (15-37); Potassium 4.3 mmoL/L (3.5-5.1)
[2019-03-06 11:35] VITALS: BP 146/87; PULSE 64; RESP 18; O2SAT 96
[2019-03-06 11:50] VITALS: BP 142/81; PULSE 63; RESP 18
[2019-03-06 12:05] VITALS: BP 136/88; PULSE 64; RESP 18
[2019-03-06 12:22] VITALS: BP 135/80; PULSE 62; RESP 18
[2019-03-07 21:11] LABS: Adrenocorticotropic Hormone 2.9 pg/mL (7.2-63.3)
== END 2019-03-06 12:22 | disposition home or self-care (01) ==
LOC: INF 09:07
PROVIDERS: Visit Provider Internal Medicine Medical Oncology
DX: Z51.11 Encounter for antineoplastic chemotherapy (principal); C64.9 Malignant neoplasm of unspecified kidney, except renal pelvis
CPT/HCPCS: 80053; 82024; 82533; 84443; 85025; 96413; J9299

== ENCOUNTER → 2019-03-18 10:02 | Outpatient (POV) | payer BC, SELFPAY ==
[2019-03-18 10:43] VITALS: BP 143/93; PULSE 78; RESP 18; O2SAT 98; BMI 25.0
--- NOTE | 2019-03-18 11:11 | HMH.PAINSOAP ---
[facility] Pain Management SOAP Note Subjective:: Patient is a pleasant 53-year-old white female who presents today for follow-up. Patient is being treated for coccygeal pain. Patient is also being treated per her oncologist Dr. Abreu for left renal cancer, liver cancer, bilateral lung cancer. Patient says she also had a recent visit in which she was informed that her lymph nodes on her left axillary region are swollen. She will undergo a mammogram tomorrow. She says she does get immunotherapy monthly. Patient says that she did not get much relief following her sacrococcygeal nerve block/caudal epidural steroid injection. Patient says that she feels that the pain remained the same. She is undergone bilateral SI joint injections, as well as epidural steroid injections. She says she is gotten little to no relief. Patient does state that her pain is worse when she bends forward at her low back area as well as into the coccygeal area. She does get relief when she is sitting. Patient rates her pain a 2 out of 10 when sitting, however. She is taking oxycodone per Dr. Abreu. She is also prescribed fentanyl 12 mcg an hour every 3 days. That is also prescribed per Dr. Abreu. She is prescribed gabapentin 100 mg 1 tablet p.o. 3 times daily and tramadol 50 mg 1 tablet p.o. 3 times daily per our clinic. Her Edson #[id number] has been reviewed and is appropriate. Her urine drug screens have been appropriate. The patient says that she is doing well for the most part with her medication regimen. She denies any side effects of the medicines. She says that she gets approximately 60% relief with her medications. Review of Systems General: No recent weight changes, no fever, no sleep disturbances Respiratory: No cough, no shortness of air, no recurring pulmonary infections Cardiovascular/peripheral vascular: No chest pain, no palpitations, no edema, no shortness of breath Gastrointestinal: No new onset incontinence, normal bowel movements reported Genitourinary: No new onset incontinence Musculoskeletal: Coccygeal pain, low back pain Psychiatric: Normal mood/affect Neurological: [Denies weakness in extremities], [denies balance issues] Objective:: Physical exam General: Alert and oriented x3, no acute distress, pleasant and cooperative, [on room air] Lungs: Respirations even and unlabored, symmetrical chest expansion Eyes: PERRL Musculoskeletal: Flexion and extension of lumbar spine somewhat guarded secondary to pain, deep tendon reflexes normal, strength in upper and lower extremities [5/5], [abnormal gait noted] Neurological: Speech clear, lead project engineer equal, no gross sensory deficit Assessment:: Coccydynia, facet arthropathy, degenerative disc disease lumbar spine with lumbar radiculopathy symptoms Plan:: Given the patient symptoms, she would benefit from a medial branch block/facet injections at L for L5 and L5-S1. We will schedule her for the injections to see if she gets relief. She is not on any type of anticoagulation therapy. She is not able to take anti-inflammatories due to her renal insufficiency. She will continue with a home stretching program. We will see her back in the clinic following her injections reassess her symptoms. She has been instructed to contact clinic if she has any concerns before next ointment. Dr. Daniels has reviewed this note and agrees with this plan of care. This note was dictated using voice recognition software and make contain errors or omissions. [facility] History I have reviewed the patient's past medical history: Yes Medical History: Reports:: Cancer, Congestive Heart Failure, Hyperlipidemia, Hypertension Denies:: Coronary Artery Disease, Diabetes Mellitus Type 1, Diabetes Mellitus Type 2, MRSA, Seizures *Have you ever received a pneumonia vaccine?: Yes *Have you received a flu vaccine this season?: Yes Other Medical History: Reports: Anemia, Blood Transfusion Reaction, Chemotherapy, Hormone Therapy, Hypothyroid
== END ==
PROVIDERS: PCP Family Medicine; Visit Provider Clinical Nurse Specialist Family Health
DX: M53.3 Sacrococcygeal disorders, not elsewhere classified (principal); M51.16 Intervertebral disc disorders with radiculopathy, lumbar region; M54.06 Panniculitis affecting regions of neck and back, lumbar region
CPT/HCPCS: 99212

== ENCOUNTER → 2019-03-19 09:14 | Outpatient (CLI) | payer BC, SELFPAY ==
--- NOTE | 2019-03-19 09:20 | MM_ITS ---
PROCEDURE: MM DIG SCREENING MAMM BI W/CAD CLINICAL INDICATION: SCREENING There is no personal or family history of breast cancer COMPARISON: [facility] DIGITAL MAMM-SCREEN BILATERAL from 03/21/2012 [facility] MM Dig screening mamm BI w/CAD from 04/19/2017 TECHNIQUE: Standard CC and MLO images were obtained. R2 CAD reviewed. FINDINGS: Moderate scattered diffuse fibroglandular densities are seen in both breast. There is a benign-appearing microcalcification in each breast. There is no new or suspicious lesion in either breast and no suspicious microcalcifications. IMPRESSION: Fibrofatty parenchyma with no suspicious lesions seen BI-RAD Category: 2 Benign Finding(s) FOLLOW-UP: 1YR 1 Year Follow-up (A letter has been sent to the patient regarding results of the study.) Dictated by: Dr. Chadwick Apodaca MD 03/20/2019 13:[address] Chadwick Apodaca MD in [place] 03/20/2019 13:07
[2019-03-19 10:52] LABS: Basophils % 0.6 % (0.1-2.0); Eosinophils # 0.2 K/mm3 (0.0-0.4); Eosinophils % 4.3 % (0.1-12.0); Hematocrit 37.3 % (37.0-47.0); Hemoglobin 11.5 g/dL (12.2-16.2); Lymphocytes # 1.3 K/mm3 (0.7-4.5); Lymphocytes % 23.9 % (10-50); Mean Corpuscular Hemoglobin 28.5 pg (27.0-31.2); Mean Platelet Volume 7.4 fl (7.4-10.4); Monocytes # 0.3 K/mm3 (0.1-1.0); Monocytes % 6.4 % (1.7-9.3); Neutrophils # 3.5 K/mm3 (1.8-7.8); Neutrophils % 64.8 % (37.0-80.0); Platelet Count 306 K/mm3 (142-424); Red Blood Count 4.05 M/mm3 (4.20-5.40); White Blood Count 5.4 K/mm3 (4.8-10.8)
[2019-03-19 11:45] LABS: Alanine Aminotransferase 14 U/L (12-78); Albumin Level 3.5 gm/dL (3.4-5.0); Alkaline Phosphatase 121 U/L (46-116); Anion Gap 8.9 mEq/L (5-15); Aspartate Amino Transferase 11 U/L (15-37); Bilirubin,Total 0.4 mg/dL (0.2-1.0); Blood Urea Nitrogen 15 mg/dL (7-18); Calcium 8.7 mg/dL (8.5-10.1); Carbon Dioxide 33 mmol/L (21.0-32.0); Chloride 103 mmol/L (98-107); Creatinine,Serum 0.82 mg/dL (0.55-1.02); Estimated Glomerular Filt Rate 72 ml/min (>60); GFR (African American) 88 ML/MIN (>60); Globulin 3.4 gm/dl (1.3-3.2); Glucose 98 mg/dL (74-106); Potassium 3.9 mmoL/L (3.5-5.1); Sodium 141 mmol/L (136-145); Total Protein,Serum 6.9 gm/dL (6.4-8.2)
== END ==
PROVIDERS: PCP Family Medicine; Visit Provider Internal Medicine Medical Oncology
DX: C64.9 Malignant neoplasm of unspecified kidney, except renal pelvis (principal); Z12.31 Encounter for screening mammogram for malignant neoplasm of breast
CPT/HCPCS: 36415; 77067; 80053; 85025

== ENCOUNTER 2019-04-03 09:07 | Outpatient (CLI) | payer BC, SELFPAY ==
[2019-04-03 09:09] VITALS: BMI 25.0
[2019-04-03 10:43] LABS: Thyroid Stimulating Hormone 0.42 uIU/ml (0.358-3.740)
[2019-04-03 11:35] VITALS: BP 137/75; PULSE 69; RESP 18
[2019-04-03 11:50] VITALS: BP 132/77; PULSE 70; RESP 18
[2019-04-03 12:15] VITALS: BP 137/80; PULSE 71; RESP 18
[2019-04-04 17:32] LABS: Adrenocorticotropic Hormone 1.9 pg/mL (7.2-63.3)
== END 2019-04-03 12:15 | disposition home or self-care (01) ==
LOC: INF 09:07
PROVIDERS: Visit Provider Internal Medicine Medical Oncology
DX: Z51.11 Encounter for antineoplastic chemotherapy (principal); C64.9 Malignant neoplasm of unspecified kidney, except renal pelvis
CPT/HCPCS: 82024; 82533; 84443; 96413; J9299

== ENCOUNTER → 2019-04-22 10:34 | Outpatient (POV) | payer BC, SELFPAY ==
[2019-04-22 11:14] VITALS: BP 143/84; PULSE 83; RESP 18; O2SAT 99; BMI 25.0
--- NOTE | 2019-04-22 12:18 | HMH.PAINSOAP ---
[facility] Pain Management SOAP Note Subjective:: Patient is a 53-year-old white female who presents today for follow-up after a lumbar medial branch block. Patient has had epidurals along with medial branch blocks and coccygeal blocks. She has not had any relief of her lower back pain. She is currently on gabapentin 100 mg 2 times a day tramadol 50 mg 3 times a day and a fentanyl patch with oxycodone. Patient and Dr. calloway have discussed a bupivacaine intrathecal pain pump I do believe it would be beneficial for her. Patient is also being seen by oncology. ROS General: no recent weight change, no fever, no sleep disturbances Respiratory: no cough, no shortness of air, no recurring pulmonary infections Cardiovascular/Peripheral Vascular: No chest pain, No palpitations, no edema, no shortness of breath. Gastrointestinal: no new onset incontinence, normal bowel movements reported Genitourinary: no new onset incontinence Musculoskeletal: Back pain, coccygeal pain Psychiatric: normal mood/ affect Neurological: [denies new onset weakness in extremities], [denies new onset balance issues] Objective:: Physical Exam General: Alert and oriented x3, no acute distress, pleasant and cooperative, [on room air] Lungs: Resps E/U, Symmetrical chest expansion, Eyes: PERRL Musculoskeletal: Flexion and extension of lumbar spine somewhat guarded secondary to pain, deep tendon reflexes normal, strength in upper and lower extremities [5/5], antalgic gait noted Neurological: speech clear, boiler tenders supervisor equal, no gross sensory deficits Assessment:: Degenerative disc disease lumbar spine with lumbar facet arthropathy lumbar spondylosis and diagnosis of renal cell carcinoma Plan:: We will set her up for an psychological evaluation for a bupivacaine intrathecal pain pump. We will then move forward with a trial. She is been instructed to call the office if she has any issues prior to her next appointment. Dr. Daniels has reviewed this note and agrees with this plan of care. This note was dictated using voice recognition software and may contain errors or omissions [facility] History I have reviewed the patient's past medical history: Yes Medical History: Reports:: Cancer, Congestive Heart Failure, Hyperlipidemia, Hypertension Denies:: Coronary Artery Disease, Diabetes Mellitus Type 1, Diabetes Mellitus Type 2, MRSA, Seizures *Have you ever received a pneumonia vaccine?: Yes *Have you received a flu vaccine this season?: Yes Other Medical History: Reports: Anemia, Blood Transfusion Reaction, Chemotherapy, Hormone Therapy, Hypothyroidism, Radiation Therapy Other Surgeries: Yes: , Hysterectomy-Total, Other Amputation: No Fractures: No - *Social History Smoking Status: Never smoker Tobacco Type: cigarettes #Yrs smoked (if former smoker): 20 Alcohol Intake: never Alcohol Intake Frequency:: other Substance Use Type: denies use *Occupational Status:: other Housing: house Household Members: spouse, children *Travel in the last 8 weeks: None Family Hx:: Cancer, Heart Attack, Hypertension, Stroke
== END ==
PROVIDERS: PCP Family Medicine; Visit Provider Clinical Nurse Specialist Family Health
DX: M51.36 Other intervertebral disc degeneration, lumbar region (principal); M54.06 Panniculitis affecting regions of neck and back, lumbar region; C64.9 Malignant neoplasm of unspecified kidney, except renal pelvis; E78.5 Hyperlipidemia, unspecified; I10 Essential (primary) hypertension; Z86.79 Personal history of other diseases of the circulatory system
CPT/HCPCS: 99212

== ENCOUNTER 2019-05-02 09:00 | Outpatient (CLI) | payer BC, SELFPAY ==
[2019-05-02 08:59] VITALS: BMI 25.0
[2019-05-02 09:28] LABS: Basophils # 0.1 K/mm3 (0-0.2); Basophils % 1.3 % (0.1-2.0); Eosinophils # 0.3 K/mm3 (0.0-0.4); Eosinophils % 4.6 % (0.1-12.0); Hematocrit 37.1 % (37.0-47.0); Hemoglobin 11.6 g/dL (12.2-16.2); Lymphocytes # 1.4 K/mm3 (0.7-4.5); Lymphocytes % 23.5 % (10-50); Mean Corpuscular HGB Conc 31.4 g/dL (31.8-35.4); Mean Corpuscular Hemoglobin 29.5 pg (27.0-31.2); Mean Platelet Volume 7.7 fl (7.4-10.4); Monocytes # 0.4 K/mm3 (0.1-1.0); Monocytes % 6.7 % (1.7-9.3); Neutrophils # 3.7 K/mm3 (1.8-7.8); Neutrophils % 63.9 % (37.0-80.0); Platelet Count 343 K/mm3 (142-424); Red Blood Count 3.95 M/mm3 (4.20-5.40); Red Cell Distribution Width 12.9 % (11.5-17.5); White Blood Count 5.8 K/mm3 (4.8-10.8)
[2019-05-02 09:45] LABS: Alanine Aminotransferase 16 U/L (12-78); Albumin Level 3.5 gm/dL (3.4-5.0); Albumin/Globulin Ratio 0.9 (1.1-1.8); Alkaline Phosphatase 117 U/L (46-116); Anion Gap 12.6 mEq/L (5-15); Aspartate Amino Transferase 15 U/L (15-37); Bilirubin,Total 0.2 mg/dL (0.2-1.0); Blood Urea Nitrogen 17 mg/dL (7-18); Calcium 8.8 mg/dL (8.5-10.1); Carbon Dioxide 29 mmol/L (21.0-32.0); Chloride 102 mmol/L (98-107); Creatinine Clearance Estimated 70 mL/min (50-200); Creatinine,Serum 0.97 mg/dL (0.55-1.02); Estimated Glomerular Filt Rate 60 ml/min (>60); GFR (African American) 72 ML/MIN (>60); Globulin 3.8 gm/dl (1.3-3.2); Glucose 103 mg/dL (74-106); Potassium 3.6 mmoL/L (3.5-5.1); Sodium 140 mmol/L (136-145); Thyroid Stimulating Hormone 4.51 uIU/ml (0.358-3.740); Total Protein,Serum 7.3 gm/dL (6.4-8.2)
[2019-05-02 11:00] VITALS: BP 139/80; PULSE 66; RESP 18; TEMP 36.4
[2019-05-02 11:15] VITALS: BP 137/94; PULSE 67; RESP 18
[2019-05-02 11:30] VITALS: BP 145/84; PULSE 63; RESP 18
[2019-05-02 11:45] VITALS: BP 133/83; PULSE 66; RESP 18
[2019-05-06 05:31] LABS: Adrenocorticotropic Hormone 8.5 pg/mL (7.2-63.3)
== END 2019-05-02 11:45 | disposition home or self-care (01) ==
LOC: INF 09:00
PROVIDERS: Visit Provider Internal Medicine Medical Oncology
DX: Z51.11 Encounter for antineoplastic chemotherapy (principal); C64.9 Malignant neoplasm of unspecified kidney, except renal pelvis; C80.0 Disseminated malignant neoplasm, unspecified
CPT/HCPCS: 80053; 82024; 82533; 84443; 85025; 96413; J9299

== ENCOUNTER 2019-05-29 08:25 | Outpatient (CLI) | payer BC, SELFPAY ==
[2019-05-29 08:26] VITALS: BMI 27.3
[2019-05-29 08:57] LABS: Basophils # 0.1 K/mm3 (0-0.2); Eosinophils # 0.4 K/mm3 (0.0-0.4); Eosinophils % 5.7 % (0.1-12.0); Hematocrit 37.8 % (37.0-47.0); Hemoglobin 12.1 g/dL (12.2-16.2); Lymphocytes # 1.4 K/mm3 (0.7-4.5); Lymphocytes % 22.8 % (10-50); Mean Corpuscular Hemoglobin 29.1 pg (27.0-31.2); Mean Corpuscular Volume 90.9 fl (81-99); Mean Platelet Volume 7.8 fl (7.4-10.4); Monocytes # 0.4 K/mm3 (0.1-1.0); Monocytes % 6.8 % (1.7-9.3); Neutrophils # 3.9 K/mm3 (1.8-7.8); Neutrophils % 63.6 % (37.0-80.0); Platelet Count 313 K/mm3 (142-424); Red Blood Count 4.16 M/mm3 (4.20-5.40); Red Cell Distribution Width 12.7 % (11.5-17.5); White Blood Count 6.1 K/mm3 (4.8-10.8)
[2019-05-29 08:58] LABS: Chloride 98 mmol/L (98-107); Sodium 136 mmol/L (136-145)
[2019-05-29 09:01] LABS: Alanine Aminotransferase 17 U/L (12-78); Alkaline Phosphatase 90 U/L (38-126); Aspartate Amino Transferase 25 U/L (14-36); Bilirubin,Total 0.2 mg/dl (0.2-1.3); Blood Urea Nitrogen 16 mg/dl (7-17); Carbon Dioxide 29 mmol/L (22.0-30.0); Creatinine Clearance Estimated 83 mL/min (50-200); Estimated Glomerular Filt Rate 65 ml/min (>60); GFR (African American) 79 ML/MIN (>60)
[2019-05-29 09:02] LABS: Albumin Level 4.4 g/dl (3.5-5.0); Albumin/Globulin Ratio 1.5 (1.1-1.8); Calcium 9.3 mg/dl (8.4-10.2); Glucose 106 mg/dl (74-100); Total Protein,Serum 7.4 g/dl (6.3-8.2)
[2019-05-29 10:24] VITALS: BP 151/88; PULSE 60; RESP 20; TEMP 36.4; O2SAT 98
[2019-05-29 10:54] VITALS: BP 148/89; PULSE 64; RESP 20; O2SAT 98
[2019-05-29 11:10] VITALS: BP 150/84; PULSE 62; RESP 20; O2SAT 97
[2019-05-30 18:33] LABS: Adrenocorticotropic Hormone 19.3 pg/mL (7.2-63.3)
== END 2019-05-29 11:10 | disposition home or self-care (01) ==
LOC: INF 08:25
PROVIDERS: Visit Provider Internal Medicine Medical Oncology
DX: Z51.11 Encounter for antineoplastic chemotherapy (principal); C64.9 Malignant neoplasm of unspecified kidney, except renal pelvis; C80.0 Disseminated malignant neoplasm, unspecified
CPT/HCPCS: 80053; 82024; 82533; 84443; 85025; 96413; J9299

== ENCOUNTER → 2019-06-09 13:51 | Outpatient (CLI) | payer BC, SELFPAY ==
[2019-06-09 15:22] LABS: Blood Urea Nitrogen 15 mg/dl (7-17); Estimated Glomerular Filt Rate 74 ml/min (>60); GFR (African American) 90 ML/MIN (>60)
== END ==
PROVIDERS: Visit Provider Internal Medicine Medical Oncology
DX: Z01.818 Encounter for other preprocedural examination (principal)
CPT/HCPCS: 36415; 82565; 84520

== ENCOUNTER → 2019-06-10 09:30 | Outpatient (CLI) | payer BC, SELFPAY ==
--- NOTE | 2019-06-10 09:34 | CT_ITS ---
PROCEDURE: CT ABDOMEN PELVIS W CON CLINICAL INDICATION: RENAL CELL CANCER Follow-up renal cell carcinoma COMPARISON: ABDPELW CT abdomen pelvis w con from 10/28/2018 CT ABDOMEN PELVIS WO/W CON from 02/11/2019 TECHNIQUE: IV Contrast: 75ML OPTIRAY 350 Oral Contrast 450ml Redicat Axial images obtained with sagittal and coronal reformats. All CT scans at the facility use one or more dose reduction, viz: automated exposure control, ma/kV adjustment per patient size (including targeted exams where dose is matched to indication, i.e. head), or iterative reconstruction technique. FINDINGS: LOWER THORAX: No acute finding ABDOMEN & PELVIS: Multiple hypodense liver lesions once again noted not significantly changed. The largest lesion is in the right hepatic lobe inferiorly at 2.2 cm. The spleen, adrenal glands, and right kidney have an unremarkable appearance. There is pancreatic atrophy. Gallbladder is contracted. There is a complex solid appearing left renal mass along the upper pole of the left kidney at 4.9 x 4.3 by 4.4 cm previously measuring 5.2 x 4 point by 4.3 cm. There is dystrophic calcification within the mass. The previously noted increased density along the left renal artery is once again noted. No intestinal obstruction or free air. No pelvic mass or abnormal fluid collection of the pelvis. The no acute bony findings. There are degenerative changes in the lumbar spine. IMPRESSION: Overall no significant change. Stable CT appearance of the abdomen and pelvis. No change in the left renal mass with suspected spread along the region of the left renal artery and multiple liver lesions. Dictated by: Brian Mayers MD 06/10/2019 13:51 Electronically signed by Brian Mayers MD in [place] 06/10/2019 13:51
--- NOTE | 2019-06-10 09:34 | CT_ITS ---
PROCEDURE: CT CHEST W CON CLINCAL INDICATION: RENAL CELL CANCER Follow-up renal cell cancer COMPARISON: CT CHEST WO/W CON from 02/11/2019 TECHNIQUE: IV Contrast: 75ml Optiray 350 Axial images obtained with sagittal and coronal reformats. All CT scans at the facility use one or more dose reduction, viz: automated exposure control, ma/kV adjustment per patient size (including targeted exams where dose is matched to indication, i.e. head), or iterative reconstruction technique. FINDINGS: HEART AND MEDIASTINAL STRUCTURES: No change in the left supraclavicular mass at 2.5 x 2.5 cm. Mediastinal and hilar adenopathy is once again noted not significantly changed the. There are coronary artery calcifications. Left-sided hilar adenopathy not significantly changed.. LUNGS AND PLEURAL SPACES: Chronic volume loss in the right upper lobe appear stable. There is some scattered scarring unchanged. No pulmonary mass evident. No effusions or infiltrates the BONY STRUCTURES: Degenerative changes with scattered area of sclerosis which is stable UPPER ABDOMEN: Please see abdomen report ADDITIONAL FINDINGS: There are enlarged left axillary lymph nodes. Some nodes have increased in size, specifically 1 of the left axillary lymph nodes measures 3.9 by 2.4 cm previously at 2.3 by 1.6 cm. No axillary adenopathy is evident on right. The IMPRESSION: 1. Mediastinal and left hilar and left supraclavicular adenopathy is not significantly changed. 2. The left axillary adenopathy is slightly worse Dictated by: Brian Mayers MD 06/10/2019 13:10 Electronically signed by Brian Mayers MD in [place] 06/10/2019 13:10
== END ==
PROVIDERS: PCP Family Medicine; Visit Provider Internal Medicine Medical Oncology
DX: C64.2 Malignant neoplasm of left kidney, except renal pelvis (principal); C65.9 Malignant neoplasm of unspecified renal pelvis; C77.2 Secondary and unspecified malignant neoplasm of intra-abdominal lymph nodes; C78.00 Secondary malignant neoplasm of unspecified lung
CPT/HCPCS: 71260; 74177; Q9967

== ENCOUNTER 2019-06-10 15:00 | Outpatient (RCR) | payer BC, SELFPAY ==
--- NOTE | 2019-05-19 14:27 | HMH.PTOPWND ---
Rehab Outpt Wound Evaluation Rehab OP Wound Evaluation Start: 05/19/19 13:03 Freq: Status: Active Protocol: Document 05/19/19 14:18 ROSA (Rec: 05/19/19 14:27 PHORNE [id number]) Electronically Signed By Kaden Choudhury, PT 05/19/19 14:18 Subjective/History History History Pt is 53 yowf who presents with c/o increased swelling in the left side of the neck and subjective c/o heaviness or tightness in the L UE. She has had lymphedema treatment previosuly with good success. She reports her edema has been present x ~ 2 yrs overall and now worse this episode x 2-3 mos. She has hx of renal cancer with mets to the lung, lymph nodes, and liver. She underwent radiation to her L kidney and chemotherapy. She reports no c/o pain in the neck or L UE. She does report significant pain in the area of the L kidney which has been diagnosed as lumbar pain, but could be residual problems after radiation in this area. Subjective Subjective She reports the pain in her L kidney area is 3/10 currently, but she has intermittent sharp pains which which are much more intense. Lymphedema Eval Classification of Lymphedema Secondary Lymphedema Yes Stage of Lymphedema Lymphedema stages Stage I (Pitting edema, reduces w/ elevation, no fibrosis) Skin Changes Dry Skin Yes Discoloration of Skin Yes Other Changes Yes: med reaction related Pain Scale Pain Scale (0-10) 3 Radiation Therapy Has received radiation therapy yes Chemo Therapy Has received chemo therapy yes Affected Extremities Areas Affected by Lymphedema/Edema Head/Neck,Left Upper Extremity ,Left Breast,Left Axilla Manual Lymphatic Drainage Treatment Area MLD Treatment Area Head/Neck,Left Upper Extremity ,Left Breast,Left Axilla Wound Problems/Impairments Impairments Problems/Impairmments Impaired Endurance,Impaired Lifting,Impaired Recreational
== END 2019-06-10 15:05 | disposition home or self-care (01) ==
LOC: PT 15:00
PROVIDERS: PCP Family Medicine; Visit Provider Internal Medicine Medical Oncology
DX: I89.0 Lymphedema, not elsewhere classified (principal)
CPT/HCPCS: 97140; 97163

== ENCOUNTER 2019-06-26 10:15 | Outpatient (CLI) | payer BC, SELFPAY ==
[2019-06-26 10:16] VITALS: BMI 27.1
[2019-06-26 10:38] LABS: Chloride 102 mmol/L (98-107); Potassium 3.9 mmoL/L (3.5-5.1); Sodium 137 mmol/L (136-145)
[2019-06-26 10:40] LABS: Basophils # 0.1 K/mm3 (0-0.2); Basophils % 0.9 % (0.1-2.0); Eosinophils # 0.3 K/mm3 (0.0-0.4); Eosinophils % 5.4 % (0.1-12.0); Hematocrit 38.9 % (37.0-47.0); Hemoglobin 12.4 g/dL (12.2-16.2); Lymphocytes # 0.9 K/mm3 (0.7-4.5); Lymphocytes % 16.1 % (10-50); Mean Corpuscular HGB Conc 31.8 g/dL (31.8-35.4); Mean Corpuscular Hemoglobin 28.8 pg (27.0-31.2); Mean Corpuscular Volume 90.6 fl (81-99); Mean Platelet Volume 7.7 fl (7.4-10.4); Monocytes # 0.3 K/mm3 (0.1-1.0); Neutrophils # 4.2 K/mm3 (1.8-7.8); Neutrophils % 72.7 % (37.0-80.0); Platelet Count 323 K/mm3 (142-424); Red Blood Count 4.29 M/mm3 (4.20-5.40); Red Cell Distribution Width 12.5 % (11.5-17.5); White Blood Count 5.8 K/mm3 (4.8-10.8)
[2019-06-26 10:41] LABS: Alanine Aminotransferase 20 U/L (12-78); Albumin Level 4.5 g/dl (3.5-5.0); Albumin/Globulin Ratio 1.5 (1.1-1.8); Alkaline Phosphatase 86 U/L (38-126); Anion Gap 11.9 mEq/L (5-15); Aspartate Amino Transferase 28 U/L (14-36); Bilirubin,Total 0.4 mg/dl (0.2-1.3); Blood Urea Nitrogen 18 mg/dl (7-17); Carbon Dioxide 27 mmol/L (22.0-30.0); Creatinine Clearance Estimated 93 mL/min (50-200); Estimated Glomerular Filt Rate 74 ml/min (>60); GFR (African American) 90 ML/MIN (>60); Total Protein,Serum 7.5 g/dl (6.3-8.2)
[2019-06-26 10:42] LABS: Calcium 9.6 mg/dl (8.4-10.2); Glucose 121 mg/dl (74-100)
[2019-06-26 11:13] LABS: Thyroid Stimulating Hormone 1.06 uIU/mL (0.465-4.68)
[2019-06-26 12:50] VITALS: BP 145/71; PULSE 68; RESP 18; TEMP 36.6; O2SAT 94
[2019-06-26 13:30] VITALS: BP 152/91; PULSE 63; RESP 18; O2SAT 100
== END 2019-06-26 13:30 | disposition home or self-care (01) ==
LOC: INF 10:15
PROVIDERS: Visit Provider Internal Medicine Medical Oncology
DX: Z51.11 Encounter for antineoplastic chemotherapy (principal); C64.9 Malignant neoplasm of unspecified kidney, except renal pelvis; C80.0 Disseminated malignant neoplasm, unspecified
CPT/HCPCS: 80053; 82024; 82533; 84443; 85025; 96413; J9299

== ENCOUNTER → 2019-07-17 09:44 | Outpatient (CLI) | payer BC, SELFPAY ==
--- NOTE | 2019-07-17 09:50 | US_ITS ---
PROCEDURE: US BIOPSY GUIDANCE CLINICAL INDICATION: lt axillary mass COMPARISON: CT CHEST W CON from 06/10/2019 FINDINGS: Following obtaining informed consent and time-out procedure under aseptic conditions and local anesthesia with 1 percent buffered lidocaine using sonographic guidance, a 14 gauge core biopsy needle was inserted into the largest lymph node in the left axillary region. Four passes were made. Two were put in RPMI solution and 2 in formaldehyde. FNA was also performed. The patient tolerated the procedure well without evidence of immediate complication. Pathology: Metastatic renal cell carcinoma FNA: Malignant, metastatic renal cell carcinoma IMPRESSION: Successful ultrasound-guided fine needle aspiration and core biopsy of left axillary nodules consistent with metastatic renal cell carcinoma Dictated by: Brian Mayers MD 07/24/2019 13:54 Electronically signed by Brian Mayers MD in [place] 07/24/2019 13:54
== END ==
PROVIDERS: PCP Family Medicine; Visit Provider Surgery
DX: R59.0 Localized enlarged lymph nodes (principal)
CPT/HCPCS: 10005; 76942

== ENCOUNTER 2019-07-24 10:18 | Outpatient (CLI) | payer BC, SELFPAY ==
[2019-07-24 10:19] VITALS: BMI 28.3
[2019-07-24 10:39] LABS: Basophils # 0.1 K/mm3 (0-0.2); Basophils % 1.3 % (0.1-2.0); Eosinophils # 0.3 K/mm3 (0.0-0.4); Eosinophils % 6.3 % (0.1-12.0); Hematocrit 37.9 % (37.0-47.0); Hemoglobin 12.5 g/dL (12.2-16.2); Lymphocytes % 18.5 % (10-50); Mean Corpuscular HGB Conc 32.9 g/dL (31.8-35.4); Mean Corpuscular Hemoglobin 28.5 pg (27.0-31.2); Mean Corpuscular Volume 86.6 fl (81-99); Mean Platelet Volume 8.7 fl (7.4-10.4); Monocytes # 0.3 K/mm3 (0.1-1.0); Neutrophils # 3.6 K/mm3 (1.8-7.8); Platelet Count 318 K/mm3 (142-424); Red Blood Count 4.38 M/mm3 (4.20-5.40); Red Cell Distribution Width 12.2 % (11.5-17.5); White Blood Count 5.4 K/mm3 (4.8-10.8)
[2019-07-24 10:47] LABS: Alanine Aminotransferase 18 U/L (12-78); Albumin Level 4.5 g/dl (3.5-5.0); Albumin/Globulin Ratio 1.5 (1.1-1.8); Alkaline Phosphatase 91 U/L (38-126); Anion Gap 10.9 mEq/L (5-15); Aspartate Amino Transferase 26 U/L (14-36); Bilirubin,Total 0.3 mg/dl (0.2-1.3); Blood Urea Nitrogen 17 mg/dl (7-17); Calcium 9.6 mg/dl (8.4-10.2); Carbon Dioxide 28 mmol/L (22.0-30.0); Chloride 101 mmol/L (98-107); Creatinine Clearance Estimated 96 mL/min (50-200); Estimated Glomerular Filt Rate 74 ml/min (>60); GFR (African American) 90 ML/MIN (>60); Globulin 3.1 g/dL (1.3-3.2); Glucose 136 mg/dl (74-100); Potassium 3.9 mmoL/L (3.5-5.1); Sodium 136 mmol/L (136-145); Total Protein,Serum 7.6 g/dl (6.3-8.2)
[2019-07-24 11:18] LABS: Thyroid Stimulating Hormone 0.95 uIU/mL (0.465-4.68)
--- NOTE | 2019-07-24 11:44 | PC.NURSE ---
1130-Dr. Abreu, oncology, visited pt at . discussed results of axillary lymph node biopsy with pt and ordered to resume current treatment regimen with [facility].
[2019-07-24 12:02] VITALS: BP 147/78; PULSE 84; RESP 18; TEMP 36.4; O2SAT 100
[2019-07-24 12:32] VITALS: BP 156/78; PULSE 81; RESP 18; O2SAT 99
[2019-07-24 12:50] VITALS: BP 144/77; PULSE 85; RESP 18; O2SAT 100
[2019-07-26 11:17] LABS: Adrenocorticotropic Hormone 37.7 pg/mL (7.2-63.3)
== END 2019-07-24 12:50 | disposition home or self-care (01) ==
LOC: INF 10:18
PROVIDERS: Visit Provider Internal Medicine Medical Oncology
DX: Z51.11 Encounter for antineoplastic chemotherapy (principal); C64.9 Malignant neoplasm of unspecified kidney, except renal pelvis; C80.0 Disseminated malignant neoplasm, unspecified
CPT/HCPCS: 80053; 82024; 82533; 84443; 85025; 96413; J9299

== ENCOUNTER → 2019-08-11 12:31 | Outpatient (CLI) | payer BC, SELFPAY ==
[2019-09-02 16:06] LABS: Covid-19 Nasal PCR Sendout Lex NOT DETECTED
== END ==
PROVIDERS: Visit Provider Anesthesiology
DX: Z03.818 Encounter for observation for suspected exposure to other biological agents ruled out (principal); M51.36 Other intervertebral disc degeneration, lumbar region
CPT/HCPCS: U0004

== ENCOUNTER 2019-08-13 08:18 | Day surgery (SDC) | payer BC, SELFPAY ==
[2019-08-13] VITALS (8 sets, daily range): BP systolic 126–178; BP diastolic 78–102; PULSE 64–74; RESP 18–20; O2SAT 97–100; BMI 28.3
[2019-08-13 09:30] LABS: Basophils % 0.7 % (0.1-2.0); Eosinophils # 0.3 K/mm3 (0.0-0.4); Eosinophils % 6.1 % (0.1-12.0); Hematocrit 34.8 % (37.0-47.0); Hemoglobin 11.1 g/dL (12.2-16.2); Lymphocytes # 1.1 K/mm3 (0.7-4.5); Lymphocytes % 20.2 % (10-50); Mean Corpuscular HGB Conc 31.8 g/dL (31.8-35.4); Mean Corpuscular Hemoglobin 27.2 pg (27.0-31.2); Mean Corpuscular Volume 85.7 fl (81-99); Mean Platelet Volume 8.1 fl (7.4-10.4); Monocytes # 0.4 K/mm3 (0.1-1.0); Monocytes % 8.2 % (1.7-9.3); Neutrophils # 3.4 K/mm3 (1.8-7.8); Neutrophils % 64.9 % (37.0-80.0); Platelet Count 316 K/mm3 (142-424); Red Blood Count 4.06 M/mm3 (4.20-5.40); White Blood Count 5.2 K/mm3 (4.8-10.8)
[2019-08-13 09:33] LABS: INR 0.92 (0.9-1.1); Prothrombin Time 9.6 seconds (9.4-11.8)
--- NOTE | 2019-08-13 10:16 | P.PCN_ITS ---
- Procedure Date: 08/13/19 Time: 10:16 Anesthesiologist:: Roque Daniels MD Complications:: None Pre-procedure Diagnosis:: Renal cell carcinoma and degenerative disc disease of lumbar spine with lumbar radiculopathy symptoms with increasing sacral pain Post-procedure Diagnosis:: Same Indications for Procedure:: This patient is a pleasant 54-year-old white female who we are treating for low back pain and sacral pain secondary to renal cell carcinoma and degenerative disc disease of lumbar spine. She is failed all previous conservative therapy including injections and oral medications. She is currently undergoing treatment for her renal cell carcinoma here in the cancer center here at the [facility]. We have done injections which did not give her long-lasting relief. She is currently on a fentanyl patch and oxycodone to help with her pain symptoms. We will do an intrathecal pump trial to see if this helps with her symptoms. She has been off of her oral narcotics since yesterday. She has had a successful psychological evaluation. Her platelet count and PT/INR were within normal limits. Platelet count 316 and PT/INR 0.92. Procedure Details:: Pain pump trial Informed consent was obtained and the risk and benefits of the procedure was explained to the patient. The patient was taken to the procedure room and placed prone on the procedure table. Patient was prepped and draped in sterile fashion. C-arm fluoroscopy was used to view the lumbar spine. The skin and subcutaneous tissues were anesthetized using lidocaine. I placed a 18-gauge spinal needle into the L4-5 interspace and advanced until clear CSF was obtained. After this intrathecal catheter was inserted and advanced very easily to the L1 vertebral body. The needle was withdrawn. We were able to freely withdraw clear CSF through the catheter. We then injected intrathecal bupivacaine with dextrose 5 mg single shot bolus followed by saline and followed by the previous CSF that was withdrawn. The needle and catheter were then removed and a Band-Aid was placed. Patient tolerated the procedure well with no complications. We reevaluated the patient after 30 minutes to 1 hour. She was also reassessed by physical therapy. She had 90 to 100% relief in her pain symptoms. Her sacral pain had completely resolved. She was proceed with permanent placement of intrathecal pain pump. We will plan on permanent placement with intrathecal bupivacaine 5 mg/mL to start at 2.5 mg/day. Catheter tip will be at the L1 or L2 vertebral body. Plan and Disposition:: We will have her see Dr. Reyna more for evaluation of permanent placement. Again we will plan on parent placement with intrathecal bupivacaine 5 mg/mL to start at 2.5 mg/day. Catheter tip will be at the L1-L2 vertebral body.
--- NOTE | 2019-08-13 12:45 | PC.NURSE ---
pt feeling numbness in legs and pelvic area since procedure completion, incontinent of urine without knowing it. Pt family brought clean clothes, able to walk but unsteady. Discharged by W/C with family at side. No C/O pain. Pt cooperative and friendly, smiling as left.
== END 2019-08-13 12:45 | disposition home or self-care (01) ==
LOC: SC.PAINP 08:18
PROVIDERS: PCP Family Medicine; Visit Provider Anesthesiology
DX: M51.16 Intervertebral disc disorders with radiculopathy, lumbar region (principal); C64.9 Malignant neoplasm of unspecified kidney, except renal pelvis; M53.3 Sacrococcygeal disorders, not elsewhere classified; E78.5 Hyperlipidemia, unspecified; E03.9 Hypothyroidism, unspecified; D64.9 Anemia, unspecified; C80.0 Disseminated malignant neoplasm, unspecified
CPT/HCPCS: 36415; 62323; 85025; 85610

== ENCOUNTER → 2019-08-18 09:46 | Outpatient (POV) | payer BC, SELFPAY ==
[2019-08-18 10:03] VITALS: BP 159/92; PULSE 75; RESP 18; TEMP 36.4; O2SAT 98; BMI 27.9
--- NOTE | 2019-08-18 10:23 | HMH.PAINSOAP ---
[facility] Pain Management SOAP Note Subjective:: Is a pleasant 54-year-old white female who presents today for follow-up after a bupivacaine intrathecal pain pump trial. Though the pain relief was good during this time she has some concerns about a bupivacaine pump she did get extremely numb had issues with her bladder post trial. She also states that when she went home she was unable to do her activities that would typically induce pain with any noticeable relief. Patient and I discussed a f narcotic pump trial. Patient is on oxycodone and fentanyl we discussed that we would decrease this post implant if it works. Patient currently being treated for renal cell carcinoma. She has had a lymph node recently biopsied and she is getting a CT scan to help determine if the cancer has spread. She rates her pain today a 1 out of 10. ROS General: no recent weight change, no fever, no sleep disturbances Respiratory: no cough, no shortness of air, no recurring pulmonary infections Cardiovascular/Peripheral Vascular: No chest pain, No palpitations, no edema, no shortness of breath. Gastrointestinal: no new onset incontinence, normal bowel movements reported Genitourinary: no new onset incontinence Musculoskeletal: Back pain Psychiatric: normal mood/ affect Neurological: [denies new onset weakness in extremities], [denies new onset balance issues] Objective:: Physical Exam General: Alert and oriented x3, no acute distress, pleasant and cooperative, [on room air] Lungs: Resps E/U, Symmetrical chest expansion, Eyes: PERRL Musculoskeletal: Flexion and extension of lumbar spine somewhat guarded secondary to pain, deep tendon reflexes normal, strength in upper and lower extremities [5/5], normal gait noted Neurological: speech clear, implementation engineer equal, no gross sensory deficits Assessment:: Renal cell carcinoma degenerative disc disease lumbar spine lumbar radiculopathy Plan:: We will move forward with a repeat narcotic pain pump trial. To see if this is beneficial. I will follow-up with her afterwards reassess her symptoms at that time she has been instructed to call the office if she has any issues prior to her next appointment. Dr. Daniels has reviewed this note and agrees with this plan of care. This note was dictated using voice recognition software and may contain errors or omissions [facility] History I have reviewed the patient's past medical history: Yes Medical History: Reports:: Cancer, Congestive Heart Failure, Hyperlipidemia, Hypertension Denies:: Coronary Artery Disease, Diabetes Mellitus Type 1, Diabetes Mellitus Type 2, MRSA, Seizures *Have you ever received a pneumonia vaccine?: Yes *Have you received a flu vaccine this season?: Yes Other Medical History: Reports: Anemia, Blood Transfusion Reaction, Chemotherapy, Hormone Therapy, Hypothyroidism, Radiation Therapy, Thyroid Disease Other Surgeries: Yes: , Hysterectomy-Total, Other Amputation: No Fractures: No - *Social History Smoking Status: Former smoker Tobacco Type: cigarettes #Yrs smoked (if former smoker): 20 Alcohol Intake: never Alcohol Intake Frequency:: other Substance Use Type: denies use *Occupational Status:: other Housing: house Household Members: spouse *Travel in the last 8 weeks: None Family Hx:: Cancer, Heart Attack, Hypertension, Stroke
== END ==
PROVIDERS: PCP Family Medicine; Visit Provider Clinical Nurse Specialist Family Health
DX: C64.9 Malignant neoplasm of unspecified kidney, except renal pelvis (principal); M51.16 Intervertebral disc disorders with radiculopathy, lumbar region; Z09 Encounter for follow-up examination after completed treatment for conditions other than malignant neoplasm
CPT/HCPCS: 99212

== ENCOUNTER → 2019-08-20 10:14 | Outpatient (CLI) | payer BC, SELFPAY ==
[2019-08-20 11:13] LABS: Blood Urea Nitrogen 15 mg/dl (7-17); Estimated Glomerular Filt Rate 74 ml/min (>60); GFR (African American) 90 ML/MIN (>60)
--- NOTE | 2019-08-20 11:21 | CT_ITS ---
PROCEDURE: CT ABDOMEN PELVIS W CON CLINICAL INDICATION: MALIGNANT OF KIDNEYS Follow-up renal cell carcinoma COMPARISON: ABDPELW CT abdomen pelvis w con from 04/19/2017 CT ABDOMEN PELVIS W CON from 06/10/2019 TECHNIQUE: IV Contrast: 75ML OPTIRAY 350 Oral Contrast 20ml Gastroview Axial images obtained with sagittal and coronal reformats. All CT scans at the facility use one or more dose reduction, viz: automated exposure control, ma/kV adjustment per patient size (including targeted exams where dose is matched to indication, i.e. head), or iterative reconstruction technique. FINDINGS: There is somewhat irregular decreased attenuation in the anterior segment of the right hepatic lobe inferiorly measuring up to 2.2 x 1.4 cm with some irregular hypoattenuation extending from this region. This had a similar appearance on the previous exam. There is a subtle hypodensity in the right hepatic lobe anteriorly at 7 mm not significantly changed. An additional subcapsular 5 mm hypodensity is present in the right hepatic lobe inferiorly unchanged. No new liver lesions are evident. There is a 4.7 cm partially calcified mass in the upper pole of the left kidney consistent with neoplasm not significantly changed. A cyst is present in the lower pole of the right kidney at 1.5 by 0.8 cm. There are some small nodes in the left periaortic region posterior to the left renal artery unchanged. The adrenal glands, spleen, has an unremarkable appearance. There is pancreatic atrophy. No intestinal obstruction or free air. No evidence of appendicitis or diverticulitis. There are post hysterectomy changes. No acute bony findings. IMPRESSION: Overall stable CT appearance of the abdomen and pelvis. No change in the left renal mass with small left periaortic lymph nodes. No change in the hypodense lesions of the liver Dictated by: Brian Mayers MD 08/20/2019 16:39 Electronically signed by Brian Mayers MD in [place] 08/20/2019 16:39
--- NOTE | 2019-08-20 11:21 | CT_ITS ---
PROCEDURE: CT CHEST W CON CLINCAL INDICATION: MALIGNANT OF KIDNEYS Follow-up metastatic renal cell carcinoma COMPARISON: CT CHEST W CON from 06/10/2019 CT ABDOMEN PELVIS W CON from 08/20/2019 TECHNIQUE: IV Contrast: 75ml Optiray 350 Axial images obtained with sagittal and coronal reformats. All CT scans at the facility use one or more dose reduction, viz: automated exposure control, ma/kV adjustment per patient size (including targeted exams where dose is matched to indication, i.e. head), or iterative reconstruction technique. FINDINGS: HEART AND MEDIASTINAL STRUCTURES: There is persistent mediastinal adenopathy in the AP window on the left multiple mildly enlarged lymph nodes. The mediastinal adenopathy not appear significantly changed. The cluster of nodes in the AP window measures up to 5 cm cephalad caudad, 2.3 cm transverse, and 3.8 cm AP previously measuring. Supraclavicular adenopathy is noted not significantly changed. Coronary artery calcifications are present. LUNGS AND PLEURAL SPACES: There is chronic volume loss in the right upper lobe not significantly changed. BONY STRUCTURES: Degenerative changes of the thoracic spine with scattered areas of sclerosis once again noted not significantly changed. ADDITIONAL FINDINGS: There is extensive left axillary adenopathy which is slightly worse compared to the previous exam. Nodular densities now extend to the subcutaneous region of the left axilla consistent with adenopathy. Left supraclavicular adenopathy is not significantly changed. IMPRESSION: 1. No significant change in the mediastinal and left supraclavicular adenopathy. 2. Worsening left axillary adenopathy 3. No change chronic right upper lobe volume loss Dictated by: Brian Mayers MD 08/20/2019 16:08 Electronically signed by Brian Mayers MD in [place] 08/20/2019 16:08
== END ==
PROVIDERS: PCP Family Medicine; Visit Provider Internal Medicine Medical Oncology
DX: C64.9 Malignant neoplasm of unspecified kidney, except renal pelvis (principal); C78.00 Secondary malignant neoplasm of unspecified lung
CPT/HCPCS: 36415; 71260; 74177; 82565; 84520; Q9967

== ENCOUNTER 2019-08-21 08:37 | Outpatient (CLI) | payer BC, SELFPAY ==
[2019-08-21 08:41] VITALS: BMI 28.0
[2019-08-21 09:12] LABS: Basophils # 0.1 K/mm3 (0-0.2); Basophils % 0.8 % (0.1-2.0); Eosinophils # 0.3 K/mm3 (0.0-0.4); Eosinophils % 5.6 % (0.1-12.0); Hematocrit 37.4 % (37.0-47.0); Hemoglobin 11.5 g/dL (12.2-16.2); Lymphocytes % 18.8 % (10-50); Mean Corpuscular HGB Conc 30.9 g/dL (31.8-35.4); Mean Corpuscular Hemoglobin 27.6 pg (27.0-31.2); Mean Corpuscular Volume 89.3 fl (81-99); Mean Platelet Volume 7.6 fl (7.4-10.4); Monocytes # 0.3 K/mm3 (0.1-1.0); Monocytes % 5.7 % (1.7-9.3); Neutrophils # 3.8 K/mm3 (1.8-7.8); Neutrophils % 69.1 % (37.0-80.0); Platelet Count 321 K/mm3 (142-424); Red Blood Count 4.18 M/mm3 (4.20-5.40); Red Cell Distribution Width 12.9 % (11.5-17.5); White Blood Count 5.5 K/mm3 (4.8-10.8)
[2019-08-21 09:17] LABS: Chloride 100 mmol/L (98-107); Potassium 3.9 mmoL/L (3.5-5.1); Sodium 136 mmol/L (136-145)
[2019-08-21 09:19] LABS: Alanine Aminotransferase 13 U/L (12-78); Alkaline Phosphatase 92 U/L (38-126); Aspartate Amino Transferase 23 U/L (14-36); Bilirubin,Total 0.6 mg/dl (0.2-1.3); Blood Urea Nitrogen 13 mg/dl (7-17); Creatinine Clearance Estimated 95 mL/min (50-200); Estimated Glomerular Filt Rate 74 ml/min (>60); GFR (African American) 90 ML/MIN (>60)
[2019-08-21 09:20] LABS: Albumin Level 4.2 g/dl (3.5-5.0); Albumin/Globulin Ratio 1.4 (1.1-1.8); Anion Gap 9.9 mEq/L (5-15); Calcium 9.1 mg/dl (8.4-10.2); Carbon Dioxide 30 mmol/L (22.0-30.0); Glucose 105 mg/dl (74-100); Total Protein,Serum 7.2 g/dl (6.3-8.2)
[2019-08-21 09:51] LABS: Thyroid Stimulating Hormone 2.93 uIU/mL (0.465-4.68)
--- NOTE | 2019-08-21 09:55 | PC.NURSE ---
0955-pt returned to infusion department but per will not receive treatment this week. pt will return next week for treatment, d/c'd left ac 22g iv.
[2019-08-22 17:14] LABS: Adrenocorticotropic Hormone 25.7 pg/mL (7.2-63.3)
== END 2019-08-21 09:55 | disposition home or self-care (01) ==
LOC: INF 08:37
PROVIDERS: Visit Provider Internal Medicine Medical Oncology
DX: C64.9 Malignant neoplasm of unspecified kidney, except renal pelvis (principal); C80.0 Disseminated malignant neoplasm, unspecified
CPT/HCPCS: 80053; 82024; 82533; 84443; 85025

== ENCOUNTER → 2019-08-29 09:00 | Outpatient (POV) | payer BC, SELFPAY ==
[2019-08-29 09:17] VITALS: BP 154/87; PULSE 77; RESP 18; O2SAT 97; BMI 27.9
--- NOTE | 2019-08-29 11:04 | HMH.PAINSOAP ---
[facility] Pain Management SOAP Note Subjective:: Patient is a 54-year-old white female who we are following up after bupivacaine intrathecal pain pump trial. Patient had significant pain relief for 6 to 8 hours. However she had concerns about being numb with some incontinence during that trial. I have discussed extensively with the patient about the bupivacaine pain pump trial and also the transdermal and oral medication that she is currently on. I do not believe she would be a good candidate for narcotic trial. I do believe that she would be an ideal candidate for intrathecal bupivacaine. The patient agrees and she did get significant pain relief and was much more functional. We will plan on permanent placement of intrathecal pain pump with bupivacaine 5 mg per ml to start at 1.25 mg/day. Objective:: Alert and oriented x3 no acute distress. Patient does have a normal gait. Motor strength of the lower extremities is 5/5. There is no gross sensory deficit. Assessment:: Degenerative disc disease of lumbar spine with lumbar radiculopathy symptoms and diagnosis of renal cell carcinoma Plan:: We will plan on permanent placement of intrathecal pain pump with intrathecal bupivacaine 5 mg/mL to start at 1.25 mg/day. She is to continue with her fentanyl patch and oral oxycodone and then as she gets pain relief with her pump we can start to wean her oral and transdermal medication. Catheter tip will be at the L1 vertebral body. We will have her see Dr. Zuleta for permanent pain pump evaluation. [facility] History Medical History: Reports:: Cancer, Congestive Heart Failure, Hyperlipidemia, Hypertension Denies:: Coronary Artery Disease, Diabetes Mellitus Type 1, Diabetes Mellitus Type 2, MRSA, Seizures *Have you ever received a pneumonia vaccine?: Yes *Have you received a flu vaccine this season?: Yes Other Medical History: Reports: Anemia, Blood Transfusion Reaction, Chemotherapy, Hormone Therapy, Hypothyroidism, Radiation Therapy, Thyroid Disease Other Surgeries: Yes: , Hysterectomy-Total, Other Amputation: No Fractures: No - *Social History Smoking Status: Former smoker Tobacco Type: cigarettes #Yrs smoked (if former smoker): 20 Alcohol Intake: never Alcohol Intake Frequency:: other Substance Use Type: denies use *Occupational Status:: employed Housing: house Household Members: spouse *Travel in the last 8 weeks: None Family Hx:: Cancer, Heart Attack, Hypertension, Stroke
== END ==
PROVIDERS: PCP Family Medicine; Visit Provider Anesthesiology
DX: M51.16 Intervertebral disc disorders with radiculopathy, lumbar region (principal); C64.9 Malignant neoplasm of unspecified kidney, except renal pelvis
CPT/HCPCS: 99212

== ENCOUNTER 2019-08-29 12:57 | Outpatient (CLI) | payer BC, SELFPAY ==
[2019-08-29 13:40] VITALS: BP 161/68; PULSE 69; RESP 18; O2SAT 100
[2019-08-29 14:15] VITALS: BP 150/79; PULSE 71; RESP 18
[2019-08-29 14:40] VITALS: BP 141/93; BP 150/79; PULSE 71; PULSE 80; RESP 18
[2019-08-29 15:03] VITALS: BP 159/93; PULSE 79; RESP 20
== END 2019-08-29 15:03 | disposition home or self-care (01) ==
LOC: INF 12:57
PROVIDERS: Visit Provider Internal Medicine Medical Oncology
DX: Z51.11 Encounter for antineoplastic chemotherapy (principal); C64.9 Malignant neoplasm of unspecified kidney, except renal pelvis; C80.0 Disseminated malignant neoplasm, unspecified
CPT/HCPCS: 96413; 96415; 96417; J9228; J9299

== ENCOUNTER → 2019-09-16 10:28 | Outpatient (CLI) | payer BC, SELFPAY ==
[2019-09-16 11:29] LABS: Basophils # 0.1 K/mm3 (0-0.2); Basophils % 1.2 % (0.1-2.0); Eosinophils # 0.4 K/mm3 (0.0-0.4); Eosinophils % 6.7 % (0.1-12.0); Hematocrit 37.1 % (37.0-47.0); Hemoglobin 12.2 g/dL (12.2-16.2); Lymphocytes % 18.9 % (10-50); Mean Corpuscular HGB Conc 32.9 g/dL (31.8-35.4); Mean Corpuscular Hemoglobin 28.3 pg (27.0-31.2); Mean Corpuscular Volume 86.2 fl (81-99); Mean Platelet Volume 7.5 fl (7.4-10.4); Monocytes # 0.3 K/mm3 (0.1-1.0); Monocytes % 6.3 % (1.7-9.3); Neutrophils # 3.6 K/mm3 (1.8-7.8); Neutrophils % 66.9 % (37.0-80.0); Platelet Count 293 K/mm3 (142-424); Red Blood Count 4.31 M/mm3 (4.20-5.40); Red Cell Distribution Width 13.2 % (11.5-17.5); White Blood Count 5.4 K/mm3 (4.8-10.8)
[2019-09-16 12:47] LABS: Anion Gap 12.5 mEq/L (5-15); Blood Urea Nitrogen 20 mg/dl (7-17); Calcium 9.9 mg/dl (8.4-10.2); Carbon Dioxide 32 mmol/L (22.0-30.0); Chloride 97 mmol/L (98-107); Estimated Glomerular Filt Rate 65 ml/min (>60); GFR (African American) 78 ML/MIN (>60); Glucose 121 mg/dl (74-100); Potassium 4.5 mmoL/L (3.5-5.1); Sodium 137 mmol/L (136-145)
[2019-09-16 13:46] LABS: Coronavirus 19 IgG Antibody Negative (Negative); Coronavirus 19 IgM Antibody Negative (Negative)
== END ==
PROVIDERS: Visit Provider Anesthesiology
DX: Z01.818 Encounter for other preprocedural examination (principal); M51.36 Other intervertebral disc degeneration, lumbar region
CPT/HCPCS: 36415; 80048; 85025; 86328

== ENCOUNTER 2019-09-17 06:24 | Day surgery (SDC) | payer BC, SELFPAY ==
--- NOTE | 2019-09-15 09:53 | SUR.PREOP ---
09/15/2019 @ 0954--PHONE CALL MADE TO PATIENT. PATIENT UNDERSTANDS THAT LAB WORK AND COVID TESTING NEEDS TO BE COMPLETED @ 1030 ON 09/16/2019. PATIENT UNDERSTANDS IF LAB WORK AND COVID-19 TESTS ARE NOT COMPLETED BY 12PM ON THAT DATE, THE SURGERY SCHEDULED WILL BE CANCELLED AND RESCHEDULED FOR ANOTHER TIME.
[2019-09-15 13:35] VITALS: BMI 26.6
[2019-09-17 06:41] VITALS: BP 170/86; PULSE 75; RESP 18; TEMP 36.8; O2SAT 97
--- NOTE | 2019-09-17 07:10 | HMH.ANESCL ---
[facility] Anesthesia Checklist - Patient Identification Patient Identification: Arm Band, Verbal (Name & ) - Structural Data Admitted From: Home Planned Operative Procedure/s: pain pump Consent for Planned Operative Procedure(s) Verified: Yes Verified Documents: History and Physical - NPO Status Verified Time NPO: 00:00 - Chart Verification Results Verified: CBC, BMP - Additional verifications Patient : No Anesthesia Reactions: No Hx Blood Transfusions: Yes Blood Transfusion Reaction: Yes Cephalosporin Allergy: No Previous Colonoscopy: No - Cardiovascular Assessment Heart Sounds: S1 & S2 Pulse Strength: Baseline Pulse Rhythm: Regular Peripheral Edema: No - Airway Assessment C-Spine Mobility Assessed: Yes TMJ Mobility Assessed: Yes Dentition: Good Dentition - Neurological Assessment Level of Consciousness: Awake, Alert, Appropriate Hx Seizures: No Numbness or tingling in extremities: No - Anesthesia Plan Anesthesia Risk discussed: Yes Anesthesia Plan: Verified ASA Class: III Anesthesia Type: MAC [facility] History I have reviewed the patient's past medical history: Yes Medical History: Reports:: Cancer (metastatic renal cell cancer), Congestive Heart Failure, Hyperlipidemia, Hypertension Denies:: Coronary Artery Disease, Diabetes Mellitus Type 1, Diabetes Mellitus Type 2, Internal Pacemaker, MRSA, Seizures *Have you ever received a pneumonia vaccine?: Yes *Have you received a flu vaccine this season?: Yes Other Medical History: Reports: Anemia, Blood Transfusion Reaction, Chemotherapy, Hormone Therapy, Hypothyroidism, Radiation Therapy, Thyroid Disease Anesthesia experience/problems:: none Laterality Cases: Left: Breast Biopsy, Right: Carpal Tunnel Release Other Surgeries: Yes: , Hysterectomy-Total, Other (renal biopsy; lt axillary node biopsy). No: Pacemaker Amputation: No Fractures: No - *Social History Educational Level: Completed College Smoking Status: Former smoker Tobacco Type: cigarettes #Yrs smoked (if former smoker): 20 Alcohol Intake: never Alcohol Intake Frequency:: other Substance Use Type: denies use *Occupational Status:: disabled Housing: house Household Members: spouse, family, children *Travel in the last 8 weeks: None Family Hx:: Cancer, Heart Attack, Hypertension, Stroke
--- NOTE | 2019-09-17 07:26 | HMH.PMCON ---
Assessment and Plan - Assessment and plan all Dx Assessment and Plan for all problems:: Impression-generative disc disease of the lumbar spine, metastatic cancer pain Plan-placement of intrathecal pain pump catheter and generator today HPI - Data of Consult Patient: new to practice Consult date: 09/17/19 Requesting Physician: Roque Daniels MD Primary Care Provider: Guillaume Toro MD - Consult Narrative Reason for consult: Placement of intrathecal pain pump system History of present illness: Ms. Carter is a 54 year old female with degenerative disc disease of the lumbar spine as well as metastatic renal cell cancer with mets to the lung liver and lymph nodes. With regards to management of her pain she had an intrathecal pain pump trial with improvement and she comes in today for placement of that system. CC: Roque Daniels MD [facility] History Medical History: Reports:: Cancer (metastatic renal cell cancer), Congestive Heart Failure, Hyperlipidemia, Hypertension Denies:: Coronary Artery Disease, Diabetes Mellitus Type 1, Diabetes Mellitus Type 2, Internal Pacemaker, MRSA, Seizures *Have you ever received a pneumonia vaccine?: Yes *Have you received a flu vaccine this season?: Yes Other Medical History: Reports: Anemia, Blood Transfusion Reaction, Chemotherapy, Hormone Therapy, Hypothyroidism, Radiation Therapy, Thyroid Disease Comment:: Illnesses-renal cell carcinoma with mets to lung liver and lymph nodes, degenerative disc disease, hypothyroidism, hypertension, hyperlipidemia, history of congestive heart failure Anesthesia experience/problems:: none Laterality Cases: Left: Breast Biopsy, Right: Carpal Tunnel Release Other Surgeries: Yes: , Hysterectomy-Total, Other (renal biopsy; lt axillary node biopsy). No: Pacemaker Amputation: No Fractures: No Comment: [id number], hysterectomy, lymph node biopsies, carpal tunnel surgery - *Social History Educational Level: Completed College Smoking Status: Former smoker Tobacco Type: cigarettes #Yrs smoked (if former smoker): 20 Alcohol Intake: never Alcohol Intake Frequency:: other Substance Use Type: denies use *Occupational Status:: disabled Housing: house Household Members: spouse, family, children *Travel in the last 8 weeks: None Family Hx:: Cancer, Heart Attack, Hypertension, Stroke Review of Systems - Review of Systems Review of systems:: pertinent systems reviewed and negative unless documented below Meds Home Medications Medication Instructions Recorded Confirmed Type fentanyl 12 mcg/hr transdermal 1 patch TRANSDERMA Q72H each 12/27/17 09/17/19 History patch levothyroxine 112 mcg capsule 112 mcg PO DAILY 02/28/18 09/17/19 History ondansetron HCl 8 mg tablet 8 mg PO BID PRN 02/28/18 09/17/19 History estradioL [Estradiol] 2 mg PO DAILY 07/03/18 09/17/19 History duloxetine 20 mg capsule,delayed 30 mg PO BID 10/10/18 09/17/19 History release hydrOXYzine HCL [Hydroxyzine HCl] 1 - 2 tab PO BID 12/05/18 09/17/19 History Tramadol HCl [Tramadol 50mg 50 mg PO HS 03/28/19 09/17/19 History Tab] Gabapentin [Gabapentin 100mg Cap] 200 mg PO HS 05/14/19 09/17/19 History oxycodone 10 mg tablet 10 mg PO Q6HP PRN 07/23/19 09/17/19 History Nivolumab [Opdivo] 40 mg IV MONTHLY 08/13/19 09/17/19 History Allergies Allergy/AdvReac Type Severity Reaction Status Date / Time adalimumab [From Humira] Allergy Severe Rash Verified 09/15/19 13:31 Objective Vital signs: Temp Pulse Resp BP Pulse Ox 98.2 F 75 18 170/86 H 97 09/17/19 06:41 09/17/19 06:41 09/17/19 06:41 09/17/19 06:41 09/17/19 06:41 Comments: Healthy appearing white female in no distress - *Routine Respiratory Exam Comments: Chest clear - *Routine Cardiovascular Exam Present: RRR - *Routine Abdominal Exam Present: soft
[2019-09-17 09:12] VITALS: BP 151/88; PULSE 73; RESP 16; TEMP 36.4; O2SAT 98
--- NOTE | 2019-09-17 09:15 | P.OP_ITS ---
Date of procedure: 09/17/19 Pre-op Diagnosis:: Impression-degenerative disc disease of the lumbar spine with radiculopathy, metastatic renal cancer Post-op Diagnosis:: Same Procedure performed:: Placement of pain pump generator Surgeon:: Juwan Zuleta MD MOLDING MACHINE SETTER:: Cruz Hercules, Carmine Everett, Raoul Clement, Kevin Means, Other Anesthesia: MAC Estimated blood loss (mL): 10 Operative findings:: Not applicable Operative note:: Once adequate IV sedation was obtained via anesthesia and local anesthesia was 1% Xylocaine with epinephrine the patient was placed prone on the operating table and her back and flank were prepped and draped in sterile fashion. Paraspinal incision made by Dr. Lockett which an intrathecal cath was passed into the intrathecal space to the area desired by Dr. Kamara. Catheter was fixed to the paraspinal fascia with fixation devices and 2-0 Prolene sutures. At this point a right flank incision was made under which made a pocket for placement of the generator. Utilizing the tunneling device the catheter was passed from the paraspinal incision to the pocket incision without difficulty. Both pockets irrigated with antibiotic solution. Catheter fixed the generator which was placed in the pocket. Generator was sutured to the fascia with Prolene suture. Subcutaneous tissues closed with interrupted stitches of 2-0 Vicryl. Skin closed arm stitches of 4-0 nylon. Wound VAC dressing and binder applied to the wound. Patient taught procedure well and was taken to the recovery room in stab le condition. Upon recovery the patient be discharged home will follow-up in 1 week for removal of the wound VAC in 2 weeks for removal of the stitches. Antibiotics x1 week per protocol. The patient tolerated procedure well Condition: stable Disposition: PACU Complications:: None
--- NOTE | 2019-09-17 09:25 | P.OP_ITS ---
Date of procedure: 09/17/19 Pre-op Diagnosis:: Degenerative disc disease of lumbar spine with lumbar radiculopathy symptoms and recent diagnosis of renal cell carcinoma undergoing treatment Post-op Diagnosis:: Same Procedure performed:: Permanent placement intrathecal pain pump with placement of intrathecal catheter with tunneling Surgeon:: Roque Daniels MD IT TELECOM TECHNICIAN:: Carmine Everett Anesthesia: MAC Estimated blood loss (mL): 10 Clinical Note:: This patient is a pleasant 54-year-old white female who we have been treating for low back pain with lumbar radicular symptoms and recent diagnosis of renal cell carcinoma which is exacerbated her back pain. She underwent a bupivacaine trial with numbness and good relief of pain symptoms. She is currently on a fentanyl patch as well as oxycodone for breakthrough. I have talked to her about weaning her oral medications once we get her pump started. We will do this pump to help with her back pain as her cancer diagnosis has exacerbated her back pain. Operative findings:: None Operative note:: Pain pump placement Informed consent was obtained and the risk and benefits of the procedure were explained to the patient. The patient was taken to the operating room. Patient was prepped and draped in sterile fashion. C-arm fluoroscopy was used to view the lumbar spine. The skin and subcutaneous tissues were anesthetized using lidocaine adjacent to the L4-5 and L5-S1 interspace. I made an incision and dissected down to the lumbar paraspinous fascia. A 14-gauge spinal needle was inserted and advanced into the L4-5 interspace until clear CSF was obtained. After this intrathecal catheter was inserted and advanced very easily to the L1 vertebral body. The stylette of the catheter and the needle were withdrawn. We were able to freely withdraw clear CSF through the catheter. The catheter was secured to the fascia with 2 anchoring devices and 2-0 Prolene. I prepared the pump with 20 mL of intrathecal bupivacaine 5 mg/mL while Dr. Zuleta prepared the pump pocket. I tunneled the catheter from the back to the pump pocket and attached the catheter to the pump. The pump was secured to the fascia with 2-0 Prolene. We were able to freely withdraw clear CSF through the side-port. Both incisions were then closed with 2-0 Vicryl followed by 4-0 nylon. A wound VAC was placed over both incisions. The patient was placed in an abdominal binder. Patient was taken to recovery in stable condition. Patient was given a back brace to help with stability of the spine and also help relieve pain in the low back. Patient tolerated the procedure well with no complications. The pump was interrogated and started at 1.25 mg/day of intrathecal bupivacaine. Patient was discharged home neurologically intact and with good relief of pain symptoms. Plan and disposition: We will follow-up with this patient in 1 week for wound check and reprogramming. We will follow-up in 2 weeks for suture removal. If the patient has any problems or questions they are to call us in the pain clinic. Condition: stable Disposition: PACU Complications:: None
[2019-09-17 09:27] VITALS: BP 148/83; PULSE 65; RESP 16; O2SAT 100
[2019-09-17 09:42] VITALS: BP 153/75; PULSE 63; RESP 16; O2SAT 100
[2019-09-17 10:10] VITALS: BP 165/73; PULSE 63; RESP 16; O2SAT 99
== END 2019-09-17 10:10 | disposition home or self-care (01) ==
LOC: OR 06:24
PROVIDERS: PCP Family Medicine; Visit Provider Anesthesiology
PROC: (CPT 62350; principal; 2019-09-17 08:00)
DX: M51.16 Intervertebral disc disorders with radiculopathy, lumbar region (principal); C64.9 Malignant neoplasm of unspecified kidney, except renal pelvis; D64.9 Anemia, unspecified; G57.00 Lesion of sciatic nerve, unspecified lower limb; M47.816 Spondylosis without myelopathy or radiculopathy, lumbar region; E03.9 Hypothyroidism, unspecified; E78.5 Hyperlipidemia, unspecified; I10 Essential (primary) hypertension; Z79.899 Other long term (current) drug therapy; Z90.710 Acquired absence of both cervix and uterus; Z87.39 Personal history of other diseases of the musculoskeletal system and connective tissue; Z82.3 Family history of stroke; Z88.8 Allergy status to other drugs, medicaments and biological substances
CPT/HCPCS: 62362; 62350; 96374; C1755; C1772; J3370

== ENCOUNTER 2019-09-18 08:41 | Outpatient (CLI) | payer BC, SELFPAY ==
[2019-09-18] VITALS (7 sets, daily range): BP systolic 147–168; BP diastolic 84–92; PULSE 71–83; RESP 18; TEMP 36.7; O2SAT 95; BMI 27.4
[2019-09-18 09:03] LABS: Basophils % 0.5 % (0.1-2.0); Eosinophils # 0.4 K/mm3 (0.0-0.4); Eosinophils % 6.1 % (0.1-12.0); Hematocrit 35.9 % (37.0-47.0); Hemoglobin 11.9 g/dL (12.2-16.2); Lymphocytes # 1.1 K/mm3 (0.7-4.5); Lymphocytes % 16.4 % (10-50); Mean Corpuscular HGB Conc 33.3 g/dL (31.8-35.4); Mean Corpuscular Hemoglobin 28.3 pg (27.0-31.2); Monocytes # 0.4 K/mm3 (0.1-1.0); Monocytes % 6.3 % (1.7-9.3); Neutrophils # 4.7 K/mm3 (1.8-7.8); Neutrophils % 70.7 % (37.0-80.0); Platelet Count 283 K/mm3 (142-424); Red Blood Count 4.22 M/mm3 (4.20-5.40); Red Cell Distribution Width 13.1 % (11.5-17.5); White Blood Count 6.6 K/mm3 (4.8-10.8)
[2019-09-18 09:06] LABS: Chloride 102 mmol/L (98-107); Sodium 137 mmol/L (136-145)
[2019-09-18 09:08] LABS: Blood Urea Nitrogen 18 mg/dl (7-17)
[2019-09-18 09:09] LABS: Alanine Aminotransferase 14 U/L (12-78); Albumin Level 4.3 g/dl (3.5-5.0); Albumin/Globulin Ratio 1.4 (1.1-1.8); Alkaline Phosphatase 112 U/L (38-126); Aspartate Amino Transferase 21 U/L (14-36); Bilirubin,Total 0.4 mg/dl (0.2-1.3); Calcium 9.1 mg/dl (8.4-10.2); Carbon Dioxide 28 mmol/L (22.0-30.0); Creatinine Clearance Estimated 82 mL/min (50-200); Estimated Glomerular Filt Rate 65 ml/min (>60); GFR (African American) 78 ML/MIN (>60); Globulin 3.1 g/dL (1.3-3.2); Glucose 122 mg/dl (74-100); Total Protein,Serum 7.4 g/dl (6.3-8.2)
[2019-09-21 17:08] LABS: Adrenocorticotropic Hormone 14.5
== END 2019-09-18 12:15 | disposition home or self-care (01) ==
LOC: INF 08:41
PROVIDERS: Visit Provider Internal Medicine Medical Oncology
DX: Z51.11 Encounter for antineoplastic chemotherapy (principal); C64.9 Malignant neoplasm of unspecified kidney, except renal pelvis; C80.0 Disseminated malignant neoplasm, unspecified
CPT/HCPCS: 80053; 82024; 82533; 84443; 85025; 96413; 96417; J9228; J9299

== ENCOUNTER → 2019-09-25 13:06 | Outpatient (POV) | payer BC, SELFPAY ==
[2019-09-25 13:20] VITALS: BP 140/75; PULSE 77; RESP 18; TEMP 36.6; O2SAT 99; BMI 27.4
--- NOTE | 2019-09-25 15:18 | HMH.PAINSOAP ---
[facility] Pain Management SOAP Note Subjective:: Patient is a pleasant 54-year-old white female who presents today for follow up after intrathecal pain pump implant. She has been treated for low back pain with lumbar radiculopathy symptoms and recent diagnosis of renal cell carcinoma. She is currently undergoing treatment for her carcinoma. Patient rates her pain a 3 out of 10 today. She says she is doing very well since having the implant. She is currently on bupivacaine at 2.5 mg/day. Patient is also on fentanyl patch and oxycodone. Patient's Edson #[id number] is reviewed and is appropriate. Morphine equivalent is 0. Her urine drug screens have been appropriate. Overall, the patient says she is doing very well today. Review of Systems General: No recent weight changes, no fever, no sleep disturbances Respiratory: No cough, no shortness of air, no recurring pulmonary infections Cardiovascular/peripheral vascular: No chest pain, no palpitations, no edema, no shortness of breath Gastrointestinal: No new onset incontinence, normal bowel movements reported Genitourinary: No new onset incontinence Musculoskeletal: Intermittent low back pain Psychiatric: Normal mood/affect Neurological: [Denies weakness in extremities], [denies balance issues] Objective:: Physical exam General: Alert and oriented x3, no acute distress, pleasant and cooperative, [on room air] Lungs: Respirations even and unlabored, symmetrical chest expansion Eyes: PERRL Musculoskeletal: Flexion and extension of lumbar spine somewhat guarded secondary to pain, deep tendon reflexes normal, strength in upper and lower extremities [5/5], normal gait noted Neurological: Speech clear, consumer product advisor equal, no gross sensory deficit Assessment:: Degenerative disc disease lumbar spine with lumbar radiculopathy symptoms, recent diagnosis of renal cell carcinoma Plan:: Overall patient is doing well. Her sutures are intact. She does not have any redness, drainage, or edema noted to her incision site. We will plan to see the patient back in the clinic in 2 weeks to reassess her symptoms. Patient has been instructed to contact clinic if she has any concerns before her next appointment. The patient and I specifically discussed risk factors for COVID19. These risks include, but are not limited to age greater than 60, heart or lung disease, diabetes, immunosuppression, and travel. We also discussed NSAIDs may worsen COVID19 infection or symptoms. Patient should not use NSAIDs to treat COVID19 signs or symptoms. Patient was also informed that any type of corticosteroid of any form (oral or injection) will decrease the patient's immune system response and may increase the likelihood of COVID19 infection [address] symptoms[address]. Daniels has reviewed this note and agrees with this plan of care. This note was dictated using voice recognition software and make contain errors or omissions. [facility] History I have reviewed the patient's past medical history: Yes Medical History: Reports:: Cancer, Congestive Heart Failure, Hyperlipidemia, Hypertension Denies:: Coronary Artery Disease, Diabetes Mellitus Type 1, Diabetes Mellitus Type 2, Internal Pacemaker, MRSA, Seizures *Have you ever received a pneumonia vaccine?: Yes *Have you received a flu vaccine this season?: Yes Other Medical History: Reports: Anemia, Blood Transfusion Reaction, Chemotherapy, Hormone Therapy, Hypothyroidism, Radiation Therapy, Thyroid Disease Laterality Cases: Left: Breast Biopsy, Right: Carpal Tunnel Release Other Surgeries: Yes: , Hysterectomy-Total, Other (renal biopsy; lt axillary node biopsy). No: Pacemaker Amputation: No Fractures: No - *Social History Smoking Status: Former smoker Tobacco Type: cigarettes #Yrs smoked (if former smoker): 20 Alcohol Intake: never Alcohol Intake Frequency:: other Substance Use Type: denies use *Occupational Status:: other Housing: house Household Members: spouse, family, childr
== END ==
PROVIDERS: PCP Family Medicine; Visit Provider Clinical Nurse Specialist Family Health
DX: M51.16 Intervertebral disc disorders with radiculopathy, lumbar region (principal); C64.9 Malignant neoplasm of unspecified kidney, except renal pelvis
CPT/HCPCS: 99212

== ENCOUNTER 2019-10-09 09:20 | Outpatient (CLI) | payer MEDICARE, BC, SELFPAY ==
[2019-10-09 09:24] VITALS: BMI 28.3
[2019-10-09 09:40] LABS: Basophils # 0.1 K/mm3 (0-0.2); Basophils % 1.3 % (0.1-2.0); Eosinophils # 0.4 K/mm3 (0.0-0.4); Eosinophils % 7.7 % (0.1-12.0); Hematocrit 38.5 % (37.0-47.0); Hemoglobin 12.6 g/dL (12.2-16.2); Lymphocytes # 1.2 K/mm3 (0.7-4.5); Lymphocytes % 21.2 % (10-50); Mean Corpuscular HGB Conc 32.7 g/dL (31.8-35.4); Mean Corpuscular Hemoglobin 27.6 pg (27.0-31.2); Mean Corpuscular Volume 84.5 fl (81-99); Mean Platelet Volume 8.5 fl (7.4-10.4); Monocytes # 0.4 K/mm3 (0.1-1.0); Monocytes % 6.3 % (1.7-9.3); Neutrophils # 3.6 K/mm3 (1.8-7.8); Neutrophils % 63.6 % (37.0-80.0); Platelet Count 308 K/mm3 (142-424); Red Blood Count 4.56 M/mm3 (4.20-5.40); Red Cell Distribution Width 13.4 % (11.5-17.5); White Blood Count 5.6 K/mm3 (4.8-10.8)
[2019-10-09 09:48] LABS: Chloride 101 mmol/L (98-107); Potassium 3.7 mmoL/L (3.5-5.1); Sodium 138 mmol/L (136-145)
[2019-10-09 09:50] LABS: Blood Urea Nitrogen 15 mg/dl (7-17); Creatinine Clearance Estimated 85 mL/min (50-200); Estimated Glomerular Filt Rate 65 ml/min (>60); GFR (African American) 78 ML/MIN (>60)
[2019-10-09 09:51] LABS: Alanine Aminotransferase 15 U/L (12-78); Albumin Level 4.5 g/dl (3.5-5.0); Albumin/Globulin Ratio 1.4 (1.1-1.8); Alkaline Phosphatase 91 U/L (38-126); Anion Gap 10.7 mEq/L (5-15); Aspartate Amino Transferase 23 U/L (14-36); Bilirubin,Total 0.6 mg/dl (0.2-1.3); Carbon Dioxide 30 mmol/L (22.0-30.0); Globulin 3.2 g/dL (1.3-3.2); Total Protein,Serum 7.7 g/dl (6.3-8.2)
[2019-10-09 09:52] LABS: Calcium 9.5 mg/dl (8.4-10.2); Glucose 111 mg/dl (74-100)
[2019-10-09 10:38] LABS: Thyroid Stimulating Hormone 1.97 uIU/mL (0.465-4.68)
[2019-10-09 11:00] VITALS: BP 159/82; PULSE 66; RESP 18; O2SAT 97
[2019-10-09 11:40] VITALS: BP 155/90; PULSE 72; RESP 18
[2019-10-09 12:25] VITALS: BP 156/91; PULSE 64; RESP 18; O2SAT 96
[2019-10-10 17:04] LABS: Adrenocorticotropic Hormone 51.1 pg/mL (7.2-63.3)
== END 2019-10-09 12:25 | disposition home or self-care (01) ==
PROVIDERS: PCP Internal Medicine Medical Oncology; Visit Provider Internal Medicine Medical Oncology
DX: Z51.11 Encounter for antineoplastic chemotherapy (principal); C64.9 Malignant neoplasm of unspecified kidney, except renal pelvis; C80.0 Disseminated malignant neoplasm, unspecified; Z79.899 Other long term (current) drug therapy
CPT/HCPCS: 62368; 80053; 82024; 82533; 84443; 85025; 96413; 96415; 96417; J9228; J9299

== ENCOUNTER → 2019-10-09 12:28 | Outpatient (POV) | payer MEDICARE, BC, SELFPAY ==
--- NOTE | 2019-10-09 13:34 | HMH.PMPROC ---
- Procedure Date: 10/09/19 Time: 13:38 Anesthesiologist:: Eileen Padilal APRN Complications:: None Pre-procedure Diagnosis:: Degenerative disc disease lumbar spine with lumbar radiculopathy symptoms, recent diagnosis of renal cell carcinoma Post-procedure Diagnosis:: Same Indications for Procedure:: Patient is a very pleasant 54-year-old white female who presents today for intrathecal pain pump follow-up. She recently underwent an intrathecal pain pump placement for chronic low back pain with lumbar radiculopathy symptoms and renal cell carcinoma pain. Patient says she is doing well overall with her intrathecal therapy. She rates her pain a 2 out of 10. Patient was started on bupivacaine at 25 mg/day. She is also managed with fentanyl Duragesic patch 12 mcg an hour and oxycodone 10 mg 1 tablet p.o. twice daily. Luz Marina Abreu does describe these medications for the patient. Patient does report that she was told today that she will not be receiving these medications any longer, as these patients were directly related to her pain for renal cell carcinoma. She has been advised to follow-up with our clinic regarding medication management. Patient's Edson #[id number] has been reviewed and is appropriate. Her morphine equivalent is 89. Her urine drug screens have been appropriate. Physical exam General: Alert and oriented x3, no acute distress, pleasant and cooperative, [on room air] Lungs: Respirations even and unlabored, symmetrical chest expansion Eyes: PERRL Musculoskeletal: Flexion and extension of lumbar spine somewhat guarded secondary to pain, deep tendon reflexes normal, strength in upper and lower extremities [5/5], [abnormal gait noted] Neurological: Speech clear, computer sciences professor equal, no gross sensory deficit Procedure Details:: Informed consent was obtained and the risk and benefits of the procedure were explained to the patient. Patient was taken to the procedure room where noninvasive monitoring was placed including noninvasive blood pressure cuff and pulse oximeter. Patient's pump was interrogated and was reprogrammed to bupivacaine at 1.25 mg/day. Her PTC device was set up today at 0.12 mg up to 4 times daily. The patient tolerated the procedure well with no complications. Plan and Disposition:: I will discuss with Dr. Daniels the patient's fentanyl and oxycodone medications. For now, we will continue the patient on her bupivacaine therapy. Her incision is well approximated, no redness, no drainage, no edema is noted to the site. Her sutures were removed today. Patient says she does have enough medication at this time without concerns of withdrawing. I will discuss the patient's medication regimen with Dr. yo and determine a further plan of care. We will plan to follow-up with the patient in 2 weeks to reassess her symptoms. She has been instructed to contact the clinic if she has any concerns before next appointment. The patient and I specifically discussed risk factors for COVID19. These risks include, but are not limited to age greater than 60, heart or lung disease, diabetes, immunosuppression, and travel. We also discussed NSAIDs may worsen COVID19 infection or symptoms. Patient should not use NSAIDs to treat COVID19 signs or symptoms. Patient was also informed that any type of corticosteroid of any form (oral or injection) will decrease the patient's immune system response and may increase the likelihood of COVID19 infection and symptoms. Location Dr. Daniels has reviewed this note and agrees with this plan of care. This note was dictated using voice recognition software and make contain errors or omissions.
[2019-10-09 13:43] VITALS: BP 142/82; PULSE 88; RESP 18; O2SAT 98; BMI 27.9
== END ==
PROVIDERS: PCP Family Medicine; Visit Provider Clinical Nurse Specialist Family Health
DX: M51.16 Intervertebral disc disorders with radiculopathy, lumbar region (principal); C64.9 Malignant neoplasm of unspecified kidney, except renal pelvis
CPT/HCPCS: 62368

== ENCOUNTER → 2019-10-23 10:58 | Outpatient (POV) | payer MEDICARE, BC, SELFPAY ==
[2019-10-23 12:02] VITALS: BP 135/85; PULSE 79; RESP 18; TEMP 36.6; O2SAT 98; BMI 26.6
--- NOTE | 2019-10-23 13:05 | HMH.PMPROC ---
- Procedure Date: 10/23/19 Time: 13:05 Anesthesiologist:: Eileen Padilla APRN Complications:: None Pre-procedure Diagnosis:: Degenerative disc disease lumbar spine with lumbar radiculopathy symptoms, recent diagnosis of renal cell carcinoma Post-procedure Diagnosis:: Same Indications for Procedure:: Patient is a 54-year-old white female who presents today for follow-up. She is being treated for degenerative disc disease lumbar spine with lumbar radiculopathy symptoms and a recent diagnosis of renal cell carcinoma. Patient was referred to us for treatment of chronic pain. She was prescribed oxycodone and fentanyl Duragesic patches per her oncologist. She also takes gabapentin. Dr. Abreu did advise the patient to follow-up with our clinic for medication management as well as intrathecal pain pump management. She currently has bupivacaine at 1.25 mg/day in her intrathecal pump. She does report that she is having chronic headaches. Patient says this is a new symptom for her. She feels that it is directly related to the medication. The patient I did discuss today that bupivacaine will not likely cause her to have the headaches that she is currently having. I have advised her she needs to follow-up with her primary care provider concerning this. The patient and I did discuss, however her oral medications. Patient says that she will soon be running out of the medications. She is asking if we can refill her oxycodone and fentanyl. The patient I did have a long discussion concerning these medicines. I also consulted with Dr. yo concerning the medications she is currently taking. She is taking oxycodone 10 mg 1 tablet p.o. twice daily and fentanyl Duragesic patch 12 mcg an hour every [address] Abreu has informed the patient she will not continue these medications. Dr. Daniels is in agreement that the patient should wean herself from the oxycodone. I have advised her of this recommendation. We will, however, continue her on the fentanyl Duragesic patch 12 mcg an hour every 72 hours. We will also continue her gabapentin. Patient did ask what she is supposed to do if her pain returns to her left axillary area. Patient feels that she may have metastasis to this area and is concerned that her pain will get worse without the oxycodone. Patient I did discuss that we may need to use a compounding cream to the area if she does have worsening pain. We will not continue the oxycodone, however. Patient does rate her pain a 4 out of 10 today. The patient's Edson [id number] has been reviewed and is appropriate. Her morphine equivalent is 29. Physical exam General: Alert and oriented x3, no acute distress, pleasant and cooperative, [on room air] Lungs: Respirations even and unlabored, symmetrical chest expansion Eyes: PERRL Musculoskeletal: Flexion and extension of thoracic and lumbar spine somewhat guarded secondary to pain, deep tendon reflexes normal, strength in upper and lower extremities [5/5], normal gait noted Neurological: Speech clear, supervisor tank cleaning equal, no gross sensory deficit Procedure Details:: Informed consent was obtained and the risk and benefits of the procedure were explained to the patient. Patient was taken to the procedure room where noninvasive monitoring was placed including noninvasive blood pressure cuff and pulse oximeter. Patient's pump was interrogated and was reprogrammed to bupivacaine at 1.5 mg/day. The patient tolerated the procedure well with no complications. Plan and Disposition:: We will continue the patient on her fentanyl Duragesic patch 12 mcg an hour every 72 hours. Patient will need a refill on this today. We will stop her oxycodone. We will also continue her on the gabapentin 100 mg 1 tablet p.o. 3 times daily. Patient I did discuss possible compounding cream to her left axillary area if she continues to have pain after stopping the oxycodone. We will see her back in the clinic in 2 weeks to valentino
== END ==
PROVIDERS: PCP Family Medicine; Visit Provider Clinical Nurse Specialist Family Health
DX: M51.16 Intervertebral disc disorders with radiculopathy, lumbar region (principal); C64.9 Malignant neoplasm of unspecified kidney, except renal pelvis
CPT/HCPCS: 62368

== ENCOUNTER 2019-10-31 08:36 | Outpatient (CLI) | payer MEDICARE, BC, SELFPAY ==
[2019-10-31 09:03] LABS: Basophils # 0.1 K/mm3 (0-0.2); Eosinophils # 0.4 K/mm3 (0.0-0.4); Eosinophils % 6.8 % (0.1-12.0); Hematocrit 37.2 % (37.0-47.0); Hemoglobin 12.5 g/dL (12.2-16.2); Lymphocytes # 1.4 K/mm3 (0.7-4.5); Lymphocytes % 21.5 % (10-50); Mean Corpuscular HGB Conc 33.7 g/dL (31.8-35.4); Mean Corpuscular Hemoglobin 28.2 pg (27.0-31.2); Mean Corpuscular Volume 83.9 fl (81-99); Mean Platelet Volume 8.2 fl (7.4-10.4); Monocytes # 0.4 K/mm3 (0.1-1.0); Monocytes % 6.1 % (1.7-9.3); Neutrophils # 4.2 K/mm3 (1.8-7.8); Neutrophils % 64.6 % (37.0-80.0); Platelet Count 307 K/mm3 (142-424); Red Blood Count 4.44 M/mm3 (4.20-5.40); Red Cell Distribution Width 13.1 % (11.5-17.5); White Blood Count 6.5 K/mm3 (4.8-10.8)
[2019-10-31 09:12] LABS: Alanine Aminotransferase 21 U/L (12-78); Albumin Level 4.5 g/dl (3.5-5.0); Albumin/Globulin Ratio 1.3 (1.1-1.8); Alkaline Phosphatase 115 U/L (38-126); Anion Gap 16.7 mEq/L (5-15); Aspartate Amino Transferase 28 U/L (14-36); Bilirubin,Total 0.5 mg/dl (0.2-1.3); Blood Urea Nitrogen 17 mg/dl (7-17); Calcium 9.6 mg/dl (8.4-10.2); Carbon Dioxide 26 mmol/L (22.0-30.0); Chloride 100 mmol/L (98-107); Creatinine Clearance Estimated 93 mL/min (50-200); Estimated Glomerular Filt Rate 74 ml/min (>60); GFR (African American) 90 ML/MIN (>60); Globulin 3.4 g/dL (1.3-3.2); Glucose 115 mg/dl (74-100); Potassium 3.7 mmoL/L (3.5-5.1); Sodium 139 mmol/L (136-145); Total Protein,Serum 7.9 g/dl (6.3-8.2)
[2019-10-31 10:05] VITALS: BP 138/89; PULSE 75; RESP 18; TEMP 36.4; O2SAT 100
[2019-10-31 10:10] LABS: Free T4 (Free Thyroxine) 1.61 ng/dl (0.78-2.19)
[2019-10-31 10:24] LABS: Thyroid Stimulating Hormone 0.43 uIU/mL (0.465-4.68)
[2019-10-31 10:35] VITALS: BP 151/91; PULSE 78; RESP 18; O2SAT 99
[2019-10-31 11:05] VITALS: BP 142/89; PULSE 76; RESP 18; O2SAT 99
[2019-10-31 11:25] VITALS: BP 162/93; PULSE 68; RESP 18; O2SAT 100
[2019-11-03 14:39] LABS: Adrenocorticotropic Hormone 35.7 pg/mL (7.2-63.3)
== END 2019-10-31 11:33 | disposition home or self-care (01) ==
LOC: INF 08:36
PROVIDERS: Family Medicine; Visit Provider Internal Medicine Medical Oncology
DX: Z51.11 Encounter for antineoplastic chemotherapy (principal); C64.9 Malignant neoplasm of unspecified kidney, except renal pelvis; C80.0 Disseminated malignant neoplasm, unspecified; E03.9 Hypothyroidism, unspecified
CPT/HCPCS: 80053; 82024; 82533; 84439; 84443; 85025; 96413; 96417; J9228; J9299

== ENCOUNTER → 2019-11-06 08:59 | Outpatient (POV) | payer MEDICARE, OTHER, SELFPAY ==
[2019-11-06 09:11] VITALS: BP 154/98; PULSE 72; RESP 18; O2SAT 98; BMI 27.6
--- NOTE | 2019-11-06 12:07 | HMH.PAINSOAP ---
[facility] Pain Management SOAP Note Subjective:: Patient is a 54-year-old white female who presents today for follow-up. She has been treated for degenerative disc disease lumbar spine with lumbar radiculopathy symptoms and renal cell carcinoma. Patient says that she had severe pain last night. As result she did call the clinic to get in today. She says that her pain is severe into her left arm and left axilla area. She also complains of headaches since stopping her oxycodone. Patient has an intrathecal pain pump with 1.5 mg/day. Her PTC is at 0.5 mg. Patient says that she has numbness and tingling with using her PTC device. She says she does not notice any numbness when she is just with her daily dosing. She does say, however, she was in severe pain last night and is unable to sleep due to the pain in her arm. She did contact her oncologist who advised her to notify our clinic. Patient says that Dr. Abreu has informed her that we will manag any pain related symptoms. Patient rates her pain a 2 out of 10 today. She says her pain was a 10 out of 10 last night, however. Patient does says she is also having some teeth pain as well as coccygeal pain. She says that she understands she has stage IV cancer, however, she says that she feels that she should not have any pain and would like to have a quality of life for the remainder of the time that she is alive . Review of Systems General: No recent weight changes, no fever, no sleep disturbances Respiratory: No cough, no shortness of air, no recurring pulmonary infections Cardiovascular/peripheral vascular: No chest pain, no palpitations, no edema, no shortness of breath Gastrointestinal: No new onset incontinence, normal bowel movements reported Genitourinary: No new onset incontinence Musculoskeletal: Left arm pain, left axilla pain coccygeal pain Psychiatric: Normal mood/affect Neurological: [Denies weakness in extremities], [denies balance issues] Objective:: Physical exam General: Alert and oriented x3, no acute distress, pleasant and cooperative, [on room air] Lungs: Respirations even and unlabored, symmetrical chest expansion Eyes: PERRL Musculoskeletal: Flexion and extension of lumbar and cervical spine somewhat guarded secondary to pain, deep tendon reflexes normal, strength in upper and lower extremities [5/5], [abnormal gait noted] Neurological: Speech clear, pier worker equal, no gross sensory deficit Assessment:: Degenerative disc disease lumbar spine with lumbar radiculopathy symptoms, renal cell carcinoma Plan:: After further discussion with Dr. yo, we will continue the patient on her fentanyl Duragesic patch at 12 mcg an hour. We will also restart her oxycodone 10 mg 1 tablet p.o. twice daily. We will continue her on bupivacaine at 1.5 mg/day. I have advised her to stop using her boluses since that is the only thing that is actually causing her to have her numbness and tingling. We will see her back in the clinic in a week to reassess her symptoms. She has been instructed to contact the clinic if she has any concerns before her next appointment. The patient and I specifically discussed risk factors for COVID19. These risks include, but are not limited to age greater than 60, heart or lung disease, diabetes, immunosuppression, and travel. We also discussed NSAIDs may worsen COVID19 infection or symptoms. Patient should not use NSAIDs to treat COVID19 signs or symptoms. Patient was also informed that any type of corticosteroid of any form (oral or injection) will decrease the patient's immune system response and may increase the likelihood of COVID19 infection and symptoms[address]. Daniels has reviewed this note and agrees with this plan of care. This note was dictated using voice recognition software and make contain errors or omissions. [facility] History I have reviewed the patient's past medical history: Yes Medical History: Reports:: Cancer (renal), Congestive Heart Earl
== END ==
PROVIDERS: PCP Family Medicine; Visit Provider Clinical Nurse Specialist Family Health
DX: M51.16 Intervertebral disc disorders with radiculopathy, lumbar region (principal); C64.9 Malignant neoplasm of unspecified kidney, except renal pelvis
CPT/HCPCS: 62368; 99212

== ENCOUNTER → 2019-11-13 09:50 | Outpatient (POV) | payer MEDICARE, OTHER, SELFPAY ==
[2019-11-13 10:10] VITALS: BP 132/88; PULSE 85; RESP 18; TEMP 36.8; O2SAT 99; BMI 26.6
--- NOTE | 2019-11-13 10:48 | HMH.PAINSOAP ---
[facility] Pain Management SOAP Note Subjective:: Patient is a 54-year-old white female who presents today for follow-up. She has been treated for degenerative disc disease lumbar spine with lumbar radiculopathy symptoms as well as renal cell carcinoma. At her last visit the patient was complaining of worsening pain. She does continue to complain of headaches. She is being treated with an intrathecal pain pump with bupivacaine at 1.5 mg/day. She denies any side effects to the medication. She says she is doing well with it. She was also started on oxycodone 10 mg at her last visit. She does take gabapentin and also fentanyl Duragesic patch 12 mcg an hour every 72 hours. Patient says she is doing much better. She says that she is having worsening headaches and is concerned that the carcinoma has metastasized. She is going to talk to her primary care provider or oncologist about a possible PET scan. Patient says she has never had a PET scan since being diagnosed with cancer. Review of Systems General: No recent weight changes, no fever, no sleep disturbances Respiratory: No cough, no shortness of air, no recurring pulmonary infections Cardiovascular/peripheral vascular: No chest pain, no palpitations, no edema, no shortness of breath Gastrointestinal: No new onset incontinence, normal bowel movements reported Genitourinary: No new onset incontinence Musculoskeletal: Headaches, bilateral lower extremity pain, low back pain, buttock pain Psychiatric: Normal mood/affect Neurological: [Denies weakness in extremities], [denies balance issues] Objective:: Physical exam General: Alert and oriented x3, no acute distress, pleasant and cooperative, [on room air] Lungs: Respirations even and unlabored, symmetrical chest expansion Eyes: PERRL Musculoskeletal: Flexion and extension of lumbar spine somewhat guarded secondary to pain, deep tendon reflexes normal, strength in upper and lower extremities [5/5], [abnormal gait noted] Neurological: Speech clear, sausage mixer equal, no gross sensory deficit Assessment:: Degenerative disc disease lumbar spine with lumbar radiculopathy symptoms, renal cell carcinoma Plan:: Overall the patient is doing well with her medication regimen. Patient I did discuss requesting a PET scan with her primary care provider or her oncologist due to her new onset of headaches. Nothing has helped with the headaches at this point. She says the oxycodone has given her relief in her lower back but no relief to her headaches. Last visit, the patient complained of pain to her left axilla area. She says that the oxycodone has also given her relief there. We will plan to follow-up with patient on Sunday for an intrathecal pain pump refill. She has been instructed to contact clinic if she has any concerns before next appointment. Dr. Daniels has reviewed this note and agrees with this plan of care. This note was dictated using voice recognition software and make contain errors or omissions. a [facility] History I have reviewed the patient's past medical history: Yes Medical History: Reports:: Cancer (renal), Congestive Heart Failure, Hyperlipidemia, Hypertension Denies:: Coronary Artery Disease, Diabetes Mellitus Type 1, Diabetes Mellitus Type 2, Internal Pacemaker, MRSA, Seizures *Have you ever received a pneumonia vaccine?: Yes *Have you received a flu vaccine this season?: Yes Other Medical History: Reports: Anemia, Blood Transfusion Reaction, Chemotherapy, Hormone Therapy, Hypothyroidism, Radiation Therapy, Thyroid Disease Laterality Cases: Left: Breast Biopsy, Right: Carpal Tunnel Release Other Surgeries: Yes: Cancer Surgery (renal biopsy, lt axillary node bx), , Hysterectomy-Total, Other (renal biopsy; lt axillary node biopsy). No: Pacemaker Amputation: No Fractures: No - *Social History Smoking Status: Former smoker Tobacco Type: cigarettes #Yrs smoked (if former smoker): 20 Alcohol Intake: never Alcohol Intake Fr
== END ==
PROVIDERS: PCP Family Medicine; Visit Provider Clinical Nurse Specialist Family Health
DX: M51.16 Intervertebral disc disorders with radiculopathy, lumbar region (principal)
CPT/HCPCS: 99212

== ENCOUNTER → 2019-11-17 08:44 | Outpatient (CLI) | payer MEDICARE, BC, SELFPAY ==
--- NOTE | 2019-11-17 | CT_ITS ---
PROCEDURE: CT ABDOMEN PELVIS W CON CLINICAL INDICATION: RENAL CELL CANCER Follow-up renal cell carcinoma COMPARISON: CT ABDPELW CT abdomen pelvis w con from 04/19/[address] ABDOMEN PELVIS W CON from 08/20/2019 TECHNIQUE: IV Contrast: 75ML OPTIRAY 350 Oral Contrast None Axial images obtained with sagittal and coronal reformats. All CT scans at the facility use one or more dose reduction, viz: automated exposure control, ma/kV adjustment per patient size (including targeted exams where dose is matched to indication, i.e. head), or iterative reconstruction technique. FINDINGS: There remains a 7 mm hypodensity in the anterior aspect of the right hepatic lobe. A lobular area of decreased attenuation is also noted in the anterior aspect of right hepatic lobe inferiorly at 2 cm which is not significantly changed. No new liver lesions are evident. The gallbladder and spleen have an unremarkable appearance. Incidental note is made of coronary artery calcifications. The adrenal glands are unremarkable. There is diffuse pancreatic atrophy. Complex solid left renal mass is once again noted containing some coarse calcification. The mass is slightly smaller measuring 4.5 x 4.2 cm previously measuring up to 4.8 x 4.3 cm. There is some streak thickening of the anterior pararenal fascia similar to the previous exam with atrophy noted of the left kidney. Increased soft tissue density is present in the left para-aortic region measuring approximately 2 by 1.4 cm. This may represent tumor infiltration/adenopathy not significantly changed. There is a moderate amount of retained colonic feces.. No intestinal obstruction or free air. Unremarkable appendix. No acute bony findings. IMPRESSION: Persistent solid left renal mass consistent with renal cell carcinoma which may be very slightly smaller compared to the previous exam. There remains some thickening of the anterior pararenal fascia consistent with extracapsular spread. Soft tissue density in the left Sona a aortic region consistent with adenopathy may also be slightly less apparent. No change in the liver lesions consistent with stable metastatic foci. Dictated by: Brian Mayers MD 11/18/2019 09:51 Brian Mayers MD in [place] 11/18/2019 09:51
--- NOTE | 2019-11-17 | CT_ITS ---
PROCEDURE: CT CHEST W CON CLINCAL INDICATION: RENAL CELL CANCER Follow-up renal cell carcinoma, metastatic disease COMPARISON: CT CT CHEST W CON from 08/20/[address] ABDOMEN PELVIS W CON from 11/17/2019 TECHNIQUE: IV Contrast: 75ml Optiray 350 Axial images obtained with sagittal and coronal reformats. All CT scans at the facility use one or more dose reduction, viz: automated exposure control, ma/kV adjustment per patient size (including targeted exams where dose is matched to indication, i.e. head), or iterative reconstruction technique. FINDINGS: There is an enlarged left supraclavicular lymph node measuring 2.4 x 2 cm not significantly changed. Left axillary adenopathy once again noted with nodes measuring to 3.6 by 2.3 cm. Previously this particular node measured 2.5 by 2 cm. The nodular densities in the subcutaneous region in the left axilla have resolved.. There is an additional node in the left axilla which measures 3.5 by 1.9 cm previously measuring 3.3 by 2.2 cm. Mediastinal adenopathy is also present. There is an anterior mediastinal lymph node which measures 2.4 by 2.3 cm previously 2.3 x 2.2 cm. An additional node in the AP window measures 3.5 by 2.1 cm previously 3.8 x 2.3 cm. Chronic volume loss is present in the right upper lobe. There are atelectatic changes within the lingula with mild fibrotic change in the left lower lobe medially. There are degenerative changes in the thoracic spine with mild kyphosis. No acute bony anomaly. IMPRESSION: Overall, there is a mixed response in the left axillary soft and mediastinal adenopathy. The subcutaneous nodules in the left axillary region are no longer apparent. There are however large nodules in the left axillary region which have slightly increased in size. The largest mediastinal node in the AP window does appear slightly smaller. Dictated by: Brian Mayers MD 11/18/2019 09:37 Brian Mayers MD in [facility] 11/18/2019 09:37
[2019-11-17 09:19] LABS: Blood Urea Nitrogen 18 mg/dl (7-17); Estimated Glomerular Filt Rate 74 ml/min (>60); GFR (African American) 90 ML/MIN (>60)
== END ==
PROVIDERS: PCP Family Medicine; Visit Provider Internal Medicine Medical Oncology
DX: C64.9 Malignant neoplasm of unspecified kidney, except renal pelvis (principal)
CPT/HCPCS: 36415; 71260; 74177; 82565; 84520; Q9967

== ENCOUNTER 2019-11-17 13:58 | Day surgery (SDC) | payer MEDICARE, OTHER, SELFPAY ==
[2019-11-17 14:24] VITALS: BP 167/89; PULSE 82; RESP 18; TEMP 36.6; O2SAT 97; BMI 26.6
[2019-11-17 14:38] VITALS: BP 158/90; PULSE 87; RESP 18; O2SAT 98
[2019-11-17 14:39] VITALS: BP 156/87; PULSE 84; RESP 18; O2SAT 98
--- NOTE | 2019-11-17 14:54 | HMH.PMPROC ---
- Procedure Date: 11/17/19 Time: 14:54 Anesthesiologist:: Sanjana Sosa APRN Complications:: None Pre-procedure Diagnosis:: Renal cell carcinoma, degenerative disc disease lumbar spine lumbar radiculopathy Post-procedure Diagnosis:: Same Indications for Procedure:: Patient is a pleasant 54-year-old white female we are treating with intrathecal bupivacaine and fentanyl and oxycodone for pain secondary to renal cell carcinoma with metastasis. She rates her pain today at 3 out of 10. Edson #[id number] reviewed and appropriate. She is on fentanyl 12 mcg every 72 hours and oxycodone 10 mg 1 p.o. twice daily. Patient current morphine equivalent is 60. 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 The patient was taken to the procedure room where noninvasive monitoring was placed including noninvasive blood pressure cuff and pulse oximeter. Patient's pump was interrogated. The area over the pump was cleansed with chlorhexidine as a cleansing solution. In sterile fashion the pump was accessed with a 22-gauge needle. Approximately 2 mL's were removed of the pump solution and discarded appropriately. The pump was then refilled with 20 mL's of bupivacaine 10 mg/mL. The needle was withdrawn and a bandage was placed over the puncture site. The infusion rate was reprogrammed to be increased to 1.75 mg/day. The patient tolerated the procedure well. Plan and Disposition:: Follow-up with the patient at her next intrathecal pain pump refill and reprogram. She has been instructed to call the office if she has any issues prior to her next appointment. We will continue her fentanyl 12 mcg every 72 hours a.m. oxycodone 10 mg 1 p.o. twice daily. Patient has been prescribed a controlled substance after being counseled on the medication, medication safety, and possible side effects. [facility] report has been obtained and reviewed prior to prescription and found to be appropriate. Opioid contract was reviewed and signed by the patient, and that they have agreed to all of the terms set forth by our compliance program. Dr. Daniels has reviewed this note and agrees with this plan of care. This note was dictated using voice recognition software and may contain errors or omissions
[2019-11-17 15:01] VITALS: BP 167/97; PULSE 80; RESP 18; O2SAT 97
== END 2019-11-17 15:02 | disposition home or self-care (01) ==
LOC: SC.PAINP 13:59
PROVIDERS: PCP Family Medicine; Visit Provider Clinical Nurse Specialist Family Health
DX: M51.16 Intervertebral disc disorders with radiculopathy, lumbar region (principal); C79.00 Secondary malignant neoplasm of unspecified kidney and renal pelvis; F32.9 Major depressive disorder, single episode, unspecified; Z87.39 Personal history of other diseases of the musculoskeletal system and connective tissue; Z90.710 Acquired absence of both cervix and uterus; Z88.8 Allergy status to other drugs, medicaments and biological substances; Z79.890 Hormone replacement therapy; Z79.891 Long term (current) use of opiate analgesic; Z79.899 Other long term (current) drug therapy
CPT/HCPCS: 36415; 62370; 71260; 74177; 82565; 84520; Q9967

== ENCOUNTER 2019-11-20 08:00 | Outpatient (CLI) | payer MEDICARE, SELFPAY ==
[2019-11-20 08:11] VITALS: BMI 27.3
[2019-11-20 08:35] LABS: Basophils # 0.1 K/mm3 (0-0.2); Eosinophils # 0.6 K/mm3 (0.0-0.4); Eosinophils % 8.6 % (0.1-12.0); Hematocrit 36.1 % (37.0-47.0); Hemoglobin 11.8 g/dL (12.2-16.2); Lymphocytes # 1.4 K/mm3 (0.7-4.5); Lymphocytes % 20.4 % (10-50); Mean Corpuscular HGB Conc 32.7 g/dL (31.8-35.4); Mean Corpuscular Hemoglobin 27.7 pg (27.0-31.2); Mean Corpuscular Volume 84.8 fl (81-99); Monocytes # 0.5 K/mm3 (0.1-1.0); Monocytes % 6.9 % (1.7-9.3); Neutrophils # 4.3 K/mm3 (1.8-7.8); Neutrophils % 63.2 % (37.0-80.0); Platelet Count 287 K/mm3 (142-424); Red Blood Count 4.26 M/mm3 (4.20-5.40); Red Cell Distribution Width 13.6 % (11.5-17.5); White Blood Count 6.7 K/mm3 (4.8-10.8)
[2019-11-20 08:39] LABS: Chloride 101 mmol/L (98-107)
[2019-11-20 08:40] LABS: Potassium 3.7 mmoL/L (3.5-5.1); Sodium 137 mmol/L (136-145)
[2019-11-20 08:42] LABS: Alanine Aminotransferase 20 U/L (12-78); Albumin Level 4.1 g/dl (3.5-5.0); Albumin/Globulin Ratio 1.3 (1.1-1.8); Alkaline Phosphatase 100 U/L (38-126); Anion Gap 11.7 mEq/L (5-15); Aspartate Amino Transferase 27 U/L (14-36); Bilirubin,Total 0.3 mg/dl (0.2-1.3); Blood Urea Nitrogen 14 mg/dl (7-17); Carbon Dioxide 28 mmol/L (22.0-30.0); Creatinine Clearance Estimated 92 mL/min (50-200); Estimated Glomerular Filt Rate 74 ml/min (>60); GFR (African American) 90 ML/MIN (>60); Globulin 3.2 g/dL (1.3-3.2); Total Protein,Serum 7.3 g/dl (6.3-8.2)
[2019-11-20 08:43] LABS: Calcium 9.2 mg/dl (8.4-10.2); Glucose 124 mg/dl (74-100)
[2019-11-20 09:14] LABS: Thyroid Stimulating Hormone 1.24 uIU/mL (0.465-4.68)
[2019-11-20 10:05] VITALS: BP 176/89; PULSE 66; RESP 18; O2SAT 95
[2019-11-20 10:15] VITALS: BP 177/92; PULSE 64; RESP 18
[2019-11-20 10:35] VITALS: BP 189/96; PULSE 65; RESP 20
[2019-11-20 10:45] VITALS: BP 192/84; PULSE 68; RESP 18
[2019-11-20 11:00] VITALS: BP 195/97; PULSE 66; RESP 18; O2SAT 95
[2019-11-20 11:16] VITALS: BP 210/100; PULSE 68; RESP 18
--- NOTE | 2019-11-20 11:17 | PC.NURSE ---
1117-called er gave report to grecia greenwood about pt coming down with uncontrolled blood pressure
== END 2019-11-20 11:16 | disposition home or self-care (01) ==
LOC: INF 08:07
PROVIDERS: Visit Provider Internal Medicine Medical Oncology
DX: Z51.11 Encounter for antineoplastic chemotherapy (principal); C64.9 Malignant neoplasm of unspecified kidney, except renal pelvis; C80.0 Disseminated malignant neoplasm, unspecified; D64.9 Anemia, unspecified
CPT/HCPCS: 80053; 82024; 82533; 84443; 85025; 96413; 96417; J9228; J9299

== ENCOUNTER 2019-11-20 11:28 | Emergency (ER) | payer MEDICARE, OTHER, SELFPAY ==
[2019-11-20 11:29] VITALS: BP 213/108; BP 222/104; PULSE 71; PULSE 72; RESP 16; TEMP 36.6; O2SAT 98; O2SAT 99; BMI 28.4
--- NOTE | 2019-11-20 11:37 | ECG_ITS ---
APPROVED REPORT Exam: Resting ECG HR:72 bpm ECG Measurements Heart Rate 72 AXES NJ 108 P 28 QRSd 78 QRS -1 QT 418 T 24 QTc 457 <Conclusion> Sinus rhythm with short NJ with premature atrial complexes Minimal voltage criteria for LVH, may be normal variant Borderline ECG Electronically signed by : Carmine Everett, 11/21/2019 07:12:23
--- NOTE | 2019-11-20 11:50 | XR_ITS ---
PROCEDURE: XR CHEST PORTABLE CLINICAL HISTORY: cough , Renal cell cancer metastatic disease COMPARISON: CR CXR2V XR chest 2V from 07/25/2017 CR CXR2V XR chest 2V from 07/29/2017 CR CXR1VP XR chest portable from 10/26/[address] CHEST W CON from 11/17/2019 FINDINGS: The cardiomediastinal silhouette and pulmonary vascularity are within normal limits. Normal heart size. There is mild prominence of the mediastinum consistent with underlying adenopathy as noted on the recent CT scan. No acute bony abnormalities. IMPRESSION: Mild mediastinal adenopathy Mild left lower lobe atelectasis Dictated by: Brian Mayers MD 11/20/2019 12:26 Brian Mayers MD in [place] 11/20/2019 12:26
--- NOTE | 2019-11-20 11:51 | CT_ITS ---
PROCEDURE: CT HEAD/BRAIN WO CON CLINICAL INDICATION: headache Severe headache with dizziness COMPARISON: CT HEADWW CT head/brain wo/w con from 01/25/2018 TECHNIQUE: Axial images obtained. All CT scans at the facility use one or more dose reduction, viz: automated exposure control, ma/kV adjustment per patient size (including targeted exams where dose is matched to indication, i.e. head), or iterative reconstruction technique. FINDINGS: No midline shift, mass effect, intracranial hemorrhage, hydrocephalus, or extra-axial fluid collection is evident. The calvarium has an unremarkable appearance. There is some minimal opacification of left mastoid air cells. No sinus air-fluid level. IMPRESSION: 1. No acute intracranial findings. 2. Minimal opacification left mastoid sinus Dictated by: Brian Mayers MD 11/20/2019 12:48 Brian Mayers MD in [facility] 11/20/2019 12:48
[2019-11-20 11:59] VITALS: BP 196/103; PULSE 72; RESP 18; O2SAT 96
[2019-11-20 12:22] LABS: Troponin I < 0.01 ng/ml (0.00-0.034)
[2019-11-20 12:32] VITALS: BP 187/100; PULSE 74
[2019-11-20 13:00] VITALS: BP 171/98; PULSE 78; O2SAT 96
--- NOTE | 2019-11-20 13:21 | HMH.EDGENADL ---
ED Disposition Clinical Impression: Headache, Hypertension Disposition: Home, Self-Care Condition on Discharge: Fair Instructions: DI for Headache Referrals: Guillaume Toro MD [Primary Care Provider] - Time of Disposition: 13:46 - Critical Care Critical Care Time: No Attestation: On 11/20/19, the high probability of a clinically significant, sudden or life threatening deterioration of the following system(s) required my full and direct attention, intervention and personal management. The time I documented below is in addition to time spent performing reported procedures but includes the following listed in this critical care notation. Medical Decision Making - Medical Records Medical records reviewed: Yes: I reviewed the patient's medical records. - Edson Inquiry Pt receiving controlled substance: Yes Edson was queried for this patient: No Reason not queried -: Edson login issues Risks and benefits of using a controlled substance: were discussed with pt by me Vital Signs: 11/20/19 11:29 11/20/19 11:59 11/20/19 12:32 Temperature 98 F Temperature Source Oral Pulse Rate [Left Radial] 72 72 74 Pulse Rate [Right] 71 Respiratory Rate 16 18 Blood Pressure [Left Arm] 222/104 H Blood Pressure [Right Arm] 213/108 H 196/103 H 187/100 H Blood Pressure Mean [Left Arm] 143 Blood Pressure Mean [Right Arm] 143 134 129 Blood Pressure Source [Right Arm] Automatic Cuff Automatic Cuff Blood Pressure Position [Left Arm] Sitting Blood Pressure Position [Right Arm] Sitting Supine Sitting 02 Sat by Pulse Oximetry 98 96 Oxygen Delivery Method Room Air Room Air 11/20/19 13:00 11/20/19 13:30 Temperature Temperature Source Pulse Rate [Left Radial] 78 73 Pulse Rate [Right] Respiratory Rate Blood Pressure [Left Arm] Blood Pressure [Right Arm] 171/98 H 166/100 H Blood Pressure Mean [Left Arm] Blood Pressure Mean [Right Arm] 122 122 Blood Pressure Source [Right Arm] Automatic Cuff Automatic Cuff Blood Pressure Position [Left Arm] Blood Pressure Position [Right Arm] Supine Sitting 02 Sat by Pulse Oximetry 96 98 Oxygen Delivery Method Room Air Room Air - Lab Data Lab Results 11/20/19 08:15: Troponin I < 0.01 Orders (Tests/Meds): ED MEDICATIONS Discontinued Medications Generic Name Dose Route Start Last Admin Trade Name Freq PRN Reason Stop Dose Admin Morphine Sulfate 4 mg 11/20/19 11:52 11/20/19 12:04 Morphine 4mg/Ml Syringe IV 11/20/19 11:53 4 mg ONCE ONE Administration Ondansetron HCl 4 mg 11/20/19 11:51 11/20/19 12:04 Zofran 4mg/2ml Vial IV 11/20/19 11:52 4 mg ONCE ONE Administration ORDERS Category Date Time Status Troponin I Q3H Lab 11/20/19 15:00 Ordered Troponin I Q3H Lab 11/20/19 18:00 Ordered - Radiology Data #1 Image(s): Chest Mild mediastinal adenopathy Mild left lower lobe atelectasis - CT Data CT Scan: Head Time Received: 13:44 Findings Narrative: 1. No acute intracranial findings. 2. Minimal opacification left mastoid sinus - ECG Data Tracing #1 Normal ventricular rate of 72 bpm, normal AL and QTc intervals. Sinus rhythm with nonspecific ST changes ECG initial impression date: 11/20/19 ECG initial impression time: 11:39 - Reevaluation(s) Time: 13:45 Reevaluation #1: On reevaluation, the patient's pain is significantly improved. We did review her labs that were obtained at her earlier appointment today did not show any significant abnormality. Patient's blood pressure has significantly improved as well. I do believe that her symptoms are likely secondary to pain causing her elevated blood pressure repeat examination is normal to patient. I did instruct her that she needs to follow-up with her PCP in 24 hours. Given strict return precautions. Verbalized understanding. Medical Decision Narrative: 54-year-old female presented to the emergency department with headache and elevated bl
[2019-11-20 13:30] VITALS: BP 166/100; PULSE 73; O2SAT 98
[2019-11-20 13:58] VITALS: BP 168/100; PULSE 78; RESP 16; TEMP 36.6; O2SAT 98
== END 2019-11-20 14:00 | disposition home or self-care (01) ==
PROVIDERS: Emergency Provider Emergency Medicine; PCP Family Medicine
DX: I16.0 Hypertensive urgency (principal); C64.9 Malignant neoplasm of unspecified kidney, except renal pelvis; C78.7 Secondary malignant neoplasm of liver and intrahepatic bile duct; C78.00 Secondary malignant neoplasm of unspecified lung; E03.9 Hypothyroidism, unspecified; E78.5 Hyperlipidemia, unspecified; Z90.710 Acquired absence of both cervix and uterus; Z87.891 Personal history of nicotine dependence
CPT/HCPCS: 70450; 71045; 80053; 82024; 82533; 84443; 84484; 85025; 93005; 96374; 96375; 96413; 96417; 99284; J2405; J9228; J9299

== ENCOUNTER → 2019-11-21 10:46 | Outpatient (POV) | payer MEDICARE, OTHER, SELFPAY ==
[2019-11-21 11:01] VITALS: BP 204/98; PULSE 87; RESP 18; TEMP 36.4; O2SAT 98; BMI 28.4
--- NOTE | 2019-11-21 11:36 | HMH.PMPROC ---
- Procedure Date: 11/21/19 Time: 11:36 Anesthesiologist:: Roque Daniels MD Complications:: None Pre-procedure Diagnosis:: Renal cell carcinoma metastatic Post-procedure Diagnosis:: Same Indications for Procedure:: She is pleasant 54-year-old white female who we have been treating for metastatic renal cell carcinoma. She currently has an intrathecal bupivacaine pain pump in place. She recently was increased to 1.75 mg/day of intrathecal bupivacaine last Sunday. She says she is had a headache ever since her implant. Her headache is worsened since her last increase. She did go to the emergency room. She was given morphine for headache symptoms. She is seeing her primary care physician today. She was discharged from the emergency room with a systolic blood pressure of 160 and diastolic of 100. She continues to have a headache today. We will turn her pump off to eliminate bupivacaine as a causative factor for her symptoms. She will be seen by her primary care physician. Will reevaluate her on Sunday of next week. Procedure Details:: Pump analysis and reprogramming Informed consent was obtained and the risk and benefits of the procedure were explained to the patient. Patient was taken to the procedure room. The pump was interrogated. Intrathecal bupivacaine infusion was turned to 0 flow. Patient tolerated the procedure well with no complications. Plan and Disposition:: We will turn her pump off to eliminate bupivacaine as a causative factor for her symptoms. She will be seen by her primary care physician. Will reevaluate her on Sunday of next week.
== END ==
PROVIDERS: PCP Family Medicine; Visit Provider Anesthesiology
DX: C64.9 Malignant neoplasm of unspecified kidney, except renal pelvis (principal); R51 Headache; T88.7XXA Unspecified adverse effect of drug or medicament, initial encounter; I10 Essential (primary) hypertension; E78.5 Hyperlipidemia, unspecified; E03.9 Hypothyroidism, unspecified; Z79.899 Other long term (current) drug therapy
CPT/HCPCS: 62368

== ENCOUNTER 2019-11-21 20:52 | Emergency (ER) | payer MEDICARE, OTHER, SELFPAY ==
[2019-11-21 20:54] VITALS: BP 164/95; PULSE 60; RESP 16; TEMP 36.5; O2SAT 96; BMI 28.4
--- NOTE | 2019-11-21 21:23 | CT_ITS ---
PROCEDURE: CT HEAD/BRAIN WO CON CLINICAL INDICATION: VEGA Severe headache the right upper extremity numbness, renal cell carcinoma with metastasis. COMPARISON: CT CT HEAD/BRAIN WO CON from 11/20/2019 TECHNIQUE: Axial images obtained. All CT scans at the facility use one or more dose reduction, viz: automated exposure control, ma/kV adjustment per patient size (including targeted exams where dose is matched to indication, i.e. head), or iterative reconstruction technique. FINDINGS: No midline shift, mass effect, intracranial hemorrhage, hydrocephalus, or extra-axial fluid collection is evident. There is a subtle area of deep to a ogden in the left temporal lobe anteriorly image number 16 series 2. This may be due to beam hardening artifact. Cannot exclude a lesion in this area. Suggest CT or MRI without and with enhancement for further evaluation. The calvarium has an unremarkable appearance. No mastoid effusion. No sinus air-fluid level. IMPRESSION: Nonspecific decreased attenuation in the left temporal lobe possibly due to artifact. Consider MRI or CT without and with enhancement for further evaluation No midline shift or acute intracranial hemorrhage Dictated by: Brian Mayers MD 11/22/2019 08:22 Brian Mayers MD in [place] 11/22/2019 08:22
[2019-11-21 21:30] LABS: Chloride 101 mmol/L (98-107); Sodium 139 mmol/L (136-145)
[2019-11-21 21:31] LABS: Potassium 4.6 mmoL/L (3.5-5.1)
[2019-11-21 21:33] LABS: Blood Urea Nitrogen 12 mg/dl (7-17); Creatinine Clearance Estimated 96 mL/min (50-200); Estimated Glomerular Filt Rate 74 ml/min (>60); GFR (African American) 90 ML/MIN (>60)
[2019-11-21 21:34] LABS: Anion Gap 12.6 mEq/L (5-15); Calcium 9.5 mg/dl (8.4-10.2); Carbon Dioxide 30 mmol/L (22.0-30.0); Glucose 112 mg/dl (74-100)
[2019-11-21 21:39] LABS: Basophils % 0.6 % (0.1-2.0); Eosinophils # 0.6 K/mm3 (0.0-0.4); Hematocrit 38.6 % (37.0-47.0); Hemoglobin 12.5 g/dL (12.2-16.2); Lymphocytes # 1.3 K/mm3 (0.7-4.5); Lymphocytes % 16.9 % (10-50); Mean Corpuscular HGB Conc 32.4 g/dL (31.8-35.4); Mean Corpuscular Hemoglobin 27.6 pg (27.0-31.2); Mean Corpuscular Volume 85.2 fl (81-99); Mean Platelet Volume 7.3 fl (7.4-10.4); Monocytes # 0.5 K/mm3 (0.1-1.0); Monocytes % 6.2 % (1.7-9.3); Neutrophils # 5.1 K/mm3 (1.8-7.8); Neutrophils % 68.3 % (37.0-80.0); Platelet Count 332 K/mm3 (142-424); Red Blood Count 4.52 M/mm3 (4.20-5.40); Red Cell Distribution Width 13.5 % (11.5-17.5); White Blood Count 7.4 K/mm3 (4.8-10.8)
--- NOTE | 2019-11-21 21:45 | PC.NURSE ---
Pt up to CT 2134
--- NOTE | 2019-11-21 21:58 | HMH.EDHA ---
ED Disposition Clinical Impression: Headache Qualifiers: Headache type: unspecified Headache chronicity pattern: acute headache Intractability: not intractable Qualified Code(s): R51 - Headache Disposition: Home, Self-Care Condition on Discharge: Good Instructions: DI for Headache Additional Instructions: call pcp in am Referrals: Guillaume Toro MD [Primary Care Provider] - - Critical Care Critical Care Time: No Attestation: On 11/21/19, the high probability of a clinically significant, sudden or life threatening deterioration of the following system(s) required my full and direct attention, intervention and personal management. The time I documented below is in addition to time spent performing reported procedures but includes the following listed in this critical care notation. Medical Decision Making - Medical Records Medical records reviewed: Yes: I reviewed the patient's medical records. - Edson Inquiry Pt receiving controlled substance: No Vital Signs: 11/21/19 20:54 Temperature 97.7 F Temperature Source Oral Pulse Rate [Left Radial] 60 Respiratory Rate 16 Blood Pressure [Right Arm] 164/95 H Blood Pressure Mean [Right Arm] 118 Blood Pressure Source [Right Arm] Automatic Cuff Blood Pressure Position [Right Arm] Sitting 02 Sat by Pulse Oximetry 96 Oxygen Delivery Method Room Air - Lab Data Lab results reviewed: Yes: I reviewed the patient's lab results. Lab Results 11/21/19 21:18: WBC 7.4, RBC 4.52, Hgb 12.5, Hct 38.6, MCV 85.2, MCH 27.6, MCHC 32.4, RDW 13.5, Plt Count 332, MPV 7.3 L, Neut % (Auto) 68.3, Lymph % (Auto) 16.9, [place] % (Auto) 6.2, Eos % (Auto) 8.0, Baso % (Auto) 0.6, Neut # (Auto) 5.1, Lymph # (Auto) 1.3, [place] # (Auto) 0.5, Eos # (Auto) 0.6 H, Baso # (Auto) 0.0 11/21/19 21:18: Sodium 139, Potassium 4.6 D, Chloride 101, Carbon Dioxide 30, Anion Gap 12.6, BUN 12, Creatinine 0.80, Estimated Creat Clear 96, Estimated GFR 74, Est GFR ( Amer) 90, Glucose 112 H, Calcium 9.5 Result diagrams: 11/21/19 21:18 11/21/19 21:18 Orders (Tests/Meds): ED MEDICATIONS Generic Name Dose Route Start Last Admin Trade Name Freraymon PRN Reason Stop Dose Admin Sodium Chloride 1,000 mls @ 999 mls/hr 11/21/19 22:00 11/21/19 22:09 Sod Chlor 0.9% 1000ml Bag IV 11/21/19 23:00 999 mls/hr .Q1H1M DINESH Administration Sodium Chloride 10 ml 11/21/19 21:48 Saline Flush 10ml Syringe IV 11/22/19 09:49 NEEDED PRN Maintain IV Site Discontinued Medications Generic Name Dose Route Start Last Admin Trade Name Freq PRN Reason Stop Dose Admin Diphenhydramine HCl 50 mg 11/21/19 21:45 11/21/19 22:09 Benadryl 50mg/1ml Vial IV 11/21/19 21:46 50 mg ONCE ONE Administration Methylprednisolone Sodium Succinate 125 mg 11/21/19 21:47 11/21/19 22:09 Solu-Medrol 125mg/2ml Vial IV 11/21/19 21:48 125 mg ONCE ONE Administration Promethazine HCl 25 mg 11/21/19 21:47 11/21/19 22:09 Phenergan 25mg/Ml 1ml Vial IV 11/21/19 21:48 25 mg ONCE ONE Administration Sodium Chloride 25 ml 11/21/19 21:47 11/21/19 22:09 Sod Chlor 0.9% 25ml Bag IV 11/21/19 21:48 25 ml ONCE ONE Administration ORDERS Category Date Time Status CT head/brain wo con Stat Cat Scan 11/21/19 21:23 Ordered Complete Blood Count Auto Diff Stat Lab 11/21/19 21:18 Results Erythrocyte Sedimentation Rate Stat Lab 11/21/19 21:18 Results - CT Data CT Scan: Head Time Received: 22:[address] Reviewed: Yes: I have viewed the radiologist's interpretation Preliminary Findings: Normal/NAD Headache HPI - General Chief Complaint: Headache Stated Complaint: numb L hand and sharp pain in R eye/ head Time Seen by Provider: 11/21/19 21:00 Mode of Arrival: Ambulatory Source of Information: Patient, Medical Record Limitations: No Limitations Description of Symptoms (Recalled from ER Triage Doc. by RN): Pt states she had immunotherapy yesterday at this facility. Pt was havving elevate
[2019-11-21 22:24] LABS: Erythrocyte Sedimentation Rate 20 mm/hr (0-30)
[2019-11-21 23:17] VITALS: BP 138/68; PULSE 56; RESP 12; TEMP 36.5; O2SAT 96
--- NOTE | 2019-11-21 23:20 | PC.NURSE ---
Pt's pain resolved, pt is very drowsy, son states he wants to take his mom home now. Pt was dc'd and rolled out via wheelchair.
== END 2019-11-21 23:30 | disposition home or self-care (01) ==
PROVIDERS: Emergency Provider Emergency Medicine; PCP Family Medicine
DX: R51 Headache (principal); R20.2 Paresthesia of skin; C64.9 Malignant neoplasm of unspecified kidney, except renal pelvis; C78.7 Secondary malignant neoplasm of liver and intrahepatic bile duct; C78.00 Secondary malignant neoplasm of unspecified lung; I10 Essential (primary) hypertension; E03.9 Hypothyroidism, unspecified; E78.5 Hyperlipidemia, unspecified; Z79.899 Other long term (current) drug therapy; Z87.891 Personal history of nicotine dependence; Z88.8 Allergy status to other drugs, medicaments and biological substances
CPT/HCPCS: 62368; 70450; 80048; 85025; 85651; 86140; 96365; 96375; 99283

== ENCOUNTER → 2019-11-27 13:38 | Outpatient (POV) | payer MEDICARE, OTHER, SELFPAY ==
[2019-11-27 13:53] VITALS: BP 147/77; PULSE 56; RESP 18; O2SAT 97; BMI 28.4
--- NOTE | 2019-11-27 14:37 | HMH.PAINSOAP ---
[facility] Pain Management SOAP Note Subjective:: Patient is a pleasant 54-year-old white female who we are treating for pain secondary to metastatic renal cell carcinoma. Patient had a bupivacaine pain pump. Patient had a reaction to the medication which include hypertension and headaches. Patient since had her pain pump turned off and this is resolved. She is currently on fentanyl 12.5 mcg every 72 hours and oxycodone 10 mg twice daily. Patient and I discussed our next plan of action. She would like to try different medication and her pain pump. I will discuss this with Dr. Daniels and we will move forward with ordering new medications. ROS General: no recent weight change, no fever, no sleep disturbances Respiratory: no cough, no shortness of air, no recurring pulmonary infections Cardiovascular/Peripheral Vascular: No chest pain, No palpitations, no edema, no shortness of breath. Gastrointestinal: no new onset incontinence, normal bowel movements reported Genitourinary: no new onset incontinence Musculoskeletal: Back pain, leg pain Psychiatric: normal mood/ affect Neurological: [denies new onset weakness in extremities], [denies new onset balance issues] Objective:: Physical Exam General: Alert and oriented x3, no acute distress, pleasant and cooperative, [on room air] Lungs: Resps E/U, Symmetrical chest expansion, Eyes: PERRL Musculoskeletal: Flexion and extension of lumbar spine somewhat guarded secondary to pain, deep tendon reflexes normal, strength in upper and lower extremities [5/5], antalgic gait noted Neurological: speech clear, maintenance shop laborer equal, no gross sensory deficits Assessment:: Renal cell carcinoma, back pain Plan:: We will schedule switch out of her medications and her intrathecal pain pump. We will set her up with Dr. Gray so we can aspirate the catheter and remove all the bupivacaine. We will follow-up with her after this reassess her symptoms at that time she has been instructed to call the office if she has any issues prior to her next appointment. Dr. Daniels has reviewed this note and agrees with this plan of care. This note was dictated using voice recognition software and may contain errors or omissions [facility] History I have reviewed the patient's past medical history: Yes Medical History: Reports:: Cancer, Congestive Heart Failure, Hyperlipidemia, Hypertension Denies:: Coronary Artery Disease, Diabetes Mellitus Type 1, Diabetes Mellitus Type 2, Internal Pacemaker, MRSA, Seizures *Have you ever received a pneumonia vaccine?: Yes *Have you received a flu vaccine this season?: Yes Other Medical History: Reports: Anemia, Blood Transfusion Reaction, Chemotherapy, Hormone Therapy, Hypothyroidism, Radiation Therapy, Thyroid Disease Laterality Cases: Left: Breast Biopsy, Right: Carpal Tunnel Release Other Surgeries: Yes: Cancer Surgery (renal biopsy, lt axillary node bx), , Hysterectomy-Total, Other (renal biopsy; lt axillary node biopsy). No: Pacemaker Amputation: No Fractures: No - *Social History Smoking Status: Former smoker Tobacco Type: cigarettes # Packs/Day (cigarettes): 1 #Yrs smoked (if former smoker): 25 Alcohol Intake: never Alcohol Intake Frequency:: other Substance Use Type: denies use *Occupational Status:: other Housing: other Household Members: other *Travel in the last 8 weeks: None Family Hx:: Cancer, Heart Attack, Hypertension, Stroke
== END ==
PROVIDERS: PCP Family Medicine; Visit Provider Clinical Nurse Specialist Family Health
DX: C64.9 Malignant neoplasm of unspecified kidney, except renal pelvis (principal); M54.9 Dorsalgia, unspecified
CPT/HCPCS: 99212

== ENCOUNTER 2019-12-11 08:30 | Outpatient (CLI) | payer MEDICARE, OTHER, SELFPAY ==
[2019-12-11] VITALS (7 sets, daily range): BP systolic 100–133; BP diastolic 52–82; PULSE 58–66; RESP 18–20; O2SAT 99; BMI 28.4
[2019-12-11 08:54] LABS: Basophils # 0.1 K/mm3 (0-0.2); Basophils % 0.8 % (0.1-2.0); Eosinophils # 0.6 K/mm3 (0.0-0.4); Eosinophils % 8.4 % (0.1-12.0); Hematocrit 37.1 % (37.0-47.0); Hemoglobin 12.3 g/dL (12.2-16.2); Lymphocytes # 1.2 K/mm3 (0.7-4.5); Mean Corpuscular HGB Conc 33.2 g/dL (31.8-35.4); Mean Corpuscular Hemoglobin 27.7 pg (27.0-31.2); Mean Corpuscular Volume 83.5 fl (81-99); Mean Platelet Volume 8.3 fl (7.4-10.4); Monocytes # 0.4 K/mm3 (0.1-1.0); Monocytes % 5.3 % (1.7-9.3); Neutrophils # 5.2 K/mm3 (1.8-7.8); Neutrophils % 69.5 % (37.0-80.0); Platelet Count 301 K/mm3 (142-424); Red Blood Count 4.44 M/mm3 (4.20-5.40); Red Cell Distribution Width 13.8 % (11.5-17.5); White Blood Count 7.5 K/mm3 (4.8-10.8)
[2019-12-11 09:00] LABS: Alanine Aminotransferase 25 U/L (12-78); Albumin Level 4.3 g/dl (3.5-5.0); Albumin/Globulin Ratio 1.3 (1.1-1.8); Alkaline Phosphatase 114 U/L (38-126); Aspartate Amino Transferase 34 U/L (14-36); Bilirubin,Total 0.4 mg/dl (0.2-1.3); Blood Urea Nitrogen 15 mg/dl (7-17); Calcium 9.5 mg/dl (8.4-10.2); Carbon Dioxide 31 mmol/L (22.0-30.0); Chloride 98 mmol/L (98-107); Creatinine Clearance Estimated 85 mL/min (50-200); Estimated Glomerular Filt Rate 65 ml/min (>60); GFR (African American) 78 ML/MIN (>60); Globulin 3.3 g/dL (1.3-3.2); Glucose 126 mg/dl (74-100); Sodium 139 mmol/L (136-145); Total Protein,Serum 7.6 g/dl (6.3-8.2)
[2019-12-11 09:31] LABS: Thyroid Stimulating Hormone 0.82 uIU/mL (0.465-4.68)
[2019-12-12 17:20] LABS: Adrenocorticotropic Hormone 26.9 pg/mL (7.2-63.3)
== END 2019-12-11 12:00 | disposition home or self-care (01) ==
LOC: INF 08:37
PROVIDERS: Visit Provider Internal Medicine Medical Oncology
DX: C64.9 Malignant neoplasm of unspecified kidney, except renal pelvis (principal); Z51.11 Encounter for antineoplastic chemotherapy; C80.0 Disseminated malignant neoplasm, unspecified; E03.9 Hypothyroidism, unspecified
CPT/HCPCS: 80053; 82024; 82533; 84443; 85025; 96413; 96415; 96417; J9228; J9299

== ENCOUNTER 2019-12-12 10:36 | Day surgery (SDC) | payer MEDICARE, OTHER, SELFPAY ==
[2019-12-12 10:55] VITALS: BP 147/80; PULSE 66; RESP 16; TEMP 36.3; O2SAT 97; BMI 28.1
[2019-12-12 11:33] VITALS: BP 130/87; PULSE 85; RESP 18; O2SAT 98
[2019-12-12 11:38] VITALS: BP 135/88; PULSE 85; RESP 18; O2SAT 98
--- NOTE | 2019-12-12 11:43 | HMH.PMPROC ---
- Procedure Date: 12/12/19 Time: 11:43 Anesthesiologist:: Roque Daniels MD Complications:: None Pre-procedure Diagnosis:: Metastatic renal cell carcinoma with increasing back pain Post-procedure Diagnosis:: Same Indications for Procedure:: This patient is a pleasant 54-year-old white female who we are treating for increasing back pain associated with metastatic renal cell carcinoma. She previously had an intrathecal bupivacaine pain pump because he was on oral medications and transdermal fentanyl patch. She did not do well with her intrathecal bupivacaine. We will switch her to intrathecal morphine. We will continue her oral medications and transdermal fentanyl patch as she continues to have metastatic cancer with a new enlarging axillary mass. She is currently undergoing chemotherapy. We will refill her pump with intrathecal morphine 5 mg/mL and started at 0.25 mg/day. We will also do a double catheter aspiration to get new medication all the way to the tip of her catheter. Procedure Details:: Pain pump refill informed consent was obtained and the risks and benefits of the procedure was explained to the patient. The patient was taken to the procedure room. The pump was interrogated. The area over the pump was prepped using ChloraPrep. The pump was accessed with a 22-gauge needle. Approximately 19 mL mL's of the intrathecal solution was withdrawn and discarded. The pump was then refilled with 20 mL's of intrathecal morphine 5 mg per mill. The pump was interrogated and the infusion was charted that 0.25 mg/day after double catheter aspiration with a 9-minute priming bolus. The patient tolerated the procedure well with no complication. Plan and Disposition:: We will follow-up with her in 2 weeks. Will reevaluate symptoms at that time. She can continue on her fentanyl patch 12.5 mcg every 3 days and oxycodone 10 mg twice a day for now. Her Edson and urine drug screen are all appropriate.
[2019-12-12 12:13] VITALS: BP 155/87; PULSE 66; RESP 18; O2SAT 97
--- NOTE | 2019-12-12 15:44 | PC.NURSE ---
Spoke with Jaqueline Hill,pharmacist who stated due to a lapse in pt's insurance she cannot afford whole script. Pt will only be buying a 15 day supply.
== END 2019-12-12 12:14 | disposition home or self-care (01) ==
LOC: SC.PAINP 10:37
PROVIDERS: PCP Family Medicine; Visit Provider Anesthesiology
DX: C64.9 Malignant neoplasm of unspecified kidney, except renal pelvis (principal); M54.9 Dorsalgia, unspecified; I10 Essential (primary) hypertension; E78.5 Hyperlipidemia, unspecified; F32.9 Major depressive disorder, single episode, unspecified; Z87.39 Personal history of other diseases of the musculoskeletal system and connective tissue; Z82.49 Family history of ischemic heart disease and other diseases of the circulatory system; G57.00 Lesion of sciatic nerve, unspecified lower limb; Z88.8 Allergy status to other drugs, medicaments and biological substances; Z79.899 Other long term (current) drug therapy
CPT/HCPCS: 62370; C1772; Q9966

== ENCOUNTER → 2019-12-15 13:19 | Outpatient (CLI) | payer MEDICARE, OTHER, SELFPAY ==
--- NOTE | 2019-12-15 13:33 | MR_ITS ---
PROCEDURE: MR HEAD/BRAIN WO/W CON CLINICAL INDICATION: RENAL CELL CARCINOMA Pt. has hx of renal ca diagnosed . Pt has had chemo and radiation . She c/o migraine h/a and hypertension x 1 month. COMPARISON: CT CT HEAD/BRAIN WO CON from 11/21/2019 TECHNIQUE: Routine multiplanar multi echo sequences are performed without gadolinium enhancement. FINDINGS: No midline shift, mass effect, intracranial hemorrhage, or hydrocephalus is evident. The cerebellopontine angle, cerebellum, and brainstem have an unremarkable appearance. There is slight diffuse increased T2 signal of the spine mil which is nonspecific. No evidence of acute infarction. No enhancing lesions evident that would indicate metastatic disease. There is some minimal nonspecific T2 white matter hyperintensities in the periventricular region. The pituitary, optic chiasm, corpus callosum, and craniocervical junction have an unremarkable appearance. There is minimal bulging disc at C3-C4 as seen on the sagittal images. Small amount fluid is present in the left mastoid sinus. No paranasal sinus air-fluid level evident. IMPRESSION: 1. No evidence of metastatic disease. 2. Nonspecific T2 hyperintensity in the mil which could be related to ischemic gliotic change. 3. Small left mastoid effusion Dictated by: Brian Mayers MD 12/16/2019 09:19 Brian Mayers MD in [place] 12/16/2019 09:19
== END ==
PROVIDERS: PCP Family Medicine; Visit Provider Internal Medicine Medical Oncology
DX: R51 Headache (principal); C64.9 Malignant neoplasm of unspecified kidney, except renal pelvis
CPT/HCPCS: 70553; A9576

== ENCOUNTER 2019-12-22 19:07 | Observation (INO) | payer MEDICARE, OTHER, SELFPAY ==
[2019-12-22] VITALS (8 sets, daily range): BP systolic 133–154; BP diastolic 76–91; PULSE 76–91; RESP 14–19; TEMP 36.5–36.8; O2SAT 96–100; BMI 29.9; BMI 27.0
--- NOTE | 2019-12-22 19:16 | ECG_ITS ---
APPROVED REPORT Exam: Resting ECG HR:91 bpm ECG Measurements Heart Rate 91 AXES NH 110 P 10 QRSd 78 QRS 12 QT 374 T -42 QTc 460 <Conclusion> Sinus rhythm with short NH Nonspecific ST-T wave abnormalities Prolonged QT Abnormal ECG Electronically signed by : Adonis Ortega, 12/23/2019 09:40:18
--- NOTE | 2019-12-22 19:19 | CT_ITS ---
PROCEDURE: CT ABDOMEN PELVIS W CON CLINICAL INDICATION: abd pain, vomiting Abdominal pain with nausea and vomiting, history renal cell carcinoma with metastatic disease. COMPARISON: CT CT ABDOMEN PELVIS W CON from 11/17/2019 TECHNIQUE: IV Contrast: 75ML OPTIRAY 350 Oral Contrast None Axial images obtained with sagittal and coronal reformats. All CT scans at the facility use one or more dose reduction, viz: automated exposure control, ma/kV adjustment per patient size (including targeted exams where dose is matched to indication, i.e. head), or iterative reconstruction technique. FINDINGS: LOWER THORAX: Coronary artery calcifications. ABDOMEN & PELVIS: Known hepatic metastasis not significantly changed. The spleen, adrenal glands have an unremarkable appearance. There is pancreatic atrophy. Partially calcified left renal mass measuring 4.5 cm unchanged consistent with renal cell carcinoma. Right renal cyst unchanged. Slight increased soft tissue density in the left retroperitoneum in the periaortic area unchanged. No intestinal obstruction or free air. Appendix measures up to 6 mm in diameter with some subtle stranding of the periappendiceal fat. No intestinal obstruction or free air. No abscess apparent. There is mild thickening of the descending and sigmoid colon which could be due to nondistention or mild colitis. Prior hysterectomy. Surgical clips are present in the pelvic region on the left. Pain pump is present. No acute bony anomalies. IMPRESSION: 1. Left renal mass consistent with renal cell carcinoma with hepatic metastasis not significantly changed. 2. Appendix upper limits of normal at 6 mm with subtle periappendiceal stranding. Equivocal for early appendicitis. Close clinical follow-up recommended. [facility] report rendered. 3. Mild thickening of the descending and sigmoid colon which could be due to nondistention or colitis. Dictated by: Brian Mayers MD 12/23/2019 06:40 Brian Mayers MD in [place] 12/23/2019 06:40
--- NOTE | 2019-12-22 19:21 | HMH.EDGENADL ---
ED Disposition Clinical Impression: Vomiting Qualifiers: Vomiting type: unspecified Vomiting Intractability: unspecified Nausea presence: unspecified Qualified Code(s): R11.10 - Vomiting, unspecified Disposition: Still a Patient Condition on Discharge: Fair Referrals: Guillaume Toro MD [Primary Care Provider] - - Critical Care Critical Care Time: No Attestation: On , the high probability of a clinically significant, sudden or life threatening deterioration of the following system(s) required my full and direct attention, intervention and personal management. The time I documented below is in addition to time spent performing reported procedures but includes the following listed in this critical care notation. Medical Decision Making - Medical Records Medical records reviewed: Yes: I reviewed the patient's medical records. - Edson Inquiry Pt receiving controlled substance: No Vital Signs: 12/22/19 19:15 12/22/19 19:30 12/22/19 20:00 Temperature 98.1 F Temperature Source Temporal Artery Scan Pulse Rate [Right Brachial] 90 91 H 79 Respiratory Rate 19 17 17 Blood Pressure [Right Arm] 154/91 H 134/85 140/82 Blood Pressure Mean [Right Arm] 112 101 101 Blood Pressure Source [Right Arm] Automatic Cuff Automatic Cuff Automatic Cuff Blood Pressure Position [Right Arm] Supine Supine Supine 02 Sat by Pulse Oximetry 96 98 99 Oxygen Delivery Method Room Air Room Air Room Air - Lab Data Lab Results 12/22/19 19:27: WBC 6.1, RBC 4.74, Hgb 13.2, Hct 40.0, MCV 84.5, MCH 27.8, MCHC 32.9, RDW 14.3, Plt Count 348, MPV 7.3 L, Neut % (Auto) 70.8, Lymph % (Auto) 15.3, [place] % (Auto) 8.0, Eos % (Auto) 5.3, Baso % (Auto) 0.7, Neut # (Auto) 4.3, Lymph # (Auto) 0.9, [place] # (Auto) 0.5, Eos # (Auto) 0.3, Baso # (Auto) 0.0 12/22/19 19:27: Sodium 137, Potassium 3.9, Chloride 99, Carbon Dioxide 26, Anion Gap 15.9 H, BUN 10, Creatinine 0.80, Estimated Creat Clear 101, Estimated GFR 74, Est GFR ( Amer) 90, Glucose 144 H, Calcium 9.8, Total Bilirubin 0.5, AST 46 H, ALT 35, Alkaline Phosphatase 128 H, Total Protein 8.0, Albumin 4.4, Globulin 3.6 H, Albumin/Globulin Ratio 1.2, Lipase 62 Result diagrams: 12/22/19 19:27 12/22/19 19:27 Orders (Tests/Meds): ED MEDICATIONS Generic Name Dose Route Start Last Admin Trade Name Freq PRN Reason Stop Dose Admin Sodium Chloride 1,000 mls @ 999 mls/hr 12/22/19 19:30 12/22/19 19:32 Sod Chlor 0.9% 1000ml Bag IV 12/22/19 20:30 999 mls/hr .Q1H1M DINESH Administration Discontinued Medications Generic Name Dose Route Start Last Admin Trade Name Freq PRN Reason Stop Dose Admin Promethazine HCl 12.5 mg 12/22/19 19:17 12/22/19 19:32 Phenergan 25mg/Ml 1ml Vial IV 12/22/19 19:18 12.5 mg ONCE ONE Administration ORDERS Category Date Time Status CT abdomen pelvis w con Stat Cat Scan 12/22/19 19:19 Ordered Lactic Acid Stat Lab 12/22/19 19:17 Ordered UA [Urinalysis and Microscopic] Stat Lab 12/22/19 19:17 Ordered Medical Decision Narrative: In summary this is a 54-year-old female with history of stage IV renal cell carcinoma presenting to the emergency department with nausea and vomiting. Patient appears to feel unwell on arrival. Vital signs are stable. Differential diagnoses include medication reaction, dehydration, bowel obstruction, malady. Plan to obtain CBC, CMP, lipase, urinalysis, CT scan of the abdomen and pelvis. Patient given IV fluid bolus and IV Phenergan. Laboratory results are generally unremarkable. Patient stable after IV fluids and IV Phenergan. She will likely need admission for hydration. Care of this patient handed off to Dr. Mccloud, pending CT scan of the abdomen and pelvis. If nothing surgical, patient could be admitted here. General Adult HPI - General Stated complaint: ABD PAIN,Vomiting Time Seen by Provider: 12/22/19 19:22 - History of Present Illness HPI narrative: 54-year-old female with history of stage IV leea nn
[2019-12-22 19:33] LABS: Basophils % 0.7 % (0.1-2.0); Eosinophils # 0.3 K/mm3 (0.0-0.4); Eosinophils % 5.3 % (0.1-12.0); Hemoglobin 13.2 g/dL (12.2-16.2); Lymphocytes # 0.9 K/mm3 (0.7-4.5); Lymphocytes % 15.3 % (10-50); Mean Corpuscular HGB Conc 32.9 g/dL (31.8-35.4); Mean Corpuscular Hemoglobin 27.8 pg (27.0-31.2); Mean Corpuscular Volume 84.5 fl (81-99); Mean Platelet Volume 7.3 fl (7.4-10.4); Monocytes # 0.5 K/mm3 (0.1-1.0); Neutrophils # 4.3 K/mm3 (1.8-7.8); Neutrophils % 70.8 % (37.0-80.0); Platelet Count 348 K/mm3 (142-424); Red Blood Count 4.74 M/mm3 (4.20-5.40); Red Cell Distribution Width 14.3 % (11.5-17.5); White Blood Count 6.1 K/mm3 (4.8-10.8)
[2019-12-22 19:36] LABS: Chloride 99 mmol/L (98-107); Sodium 137 mmol/L (136-145)
[2019-12-22 19:37] LABS: Potassium 3.9 mmoL/L (3.5-5.1)
[2019-12-22 19:39] LABS: Alanine Aminotransferase 35 U/L (12-78); Albumin Level 4.4 g/dl (3.5-5.0); Albumin/Globulin Ratio 1.2 (1.1-1.8); Alkaline Phosphatase 128 U/L (38-126); Anion Gap 15.9 mEq/L (5-15); Aspartate Amino Transferase 46 U/L (14-36); Bilirubin,Total 0.5 mg/dl (0.2-1.3); Blood Urea Nitrogen 10 mg/dl (7-17); Calcium 9.8 mg/dl (8.4-10.2); Carbon Dioxide 26 mmol/L (22.0-30.0); Creatinine Clearance Estimated 101 mL/min (50-200); Estimated Glomerular Filt Rate 74 ml/min (>60); GFR (African American) 90 ML/MIN (>60); Globulin 3.6 g/dL (1.3-3.2); Glucose 144 mg/dl (74-100); Lipase 62 U/L (23-300)
--- NOTE | 2019-12-22 21:42 | PC.NURSE ---
md on phone with surgeon.
--- NOTE | 2019-12-22 21:45 | PC.NURSE ---
on phone with dr lopez which is graphics production specialist for dr hollins
[2019-12-22 22:23] LABS: Coronavirus 19 IgG Antibody Negative (Negative); Coronavirus 19 IgM Antibody Negative (Negative)
--- NOTE | 2019-12-22 22:54 | PC.NURSE ---
PT ARRIVED TO THE FLOOR VIA W/C W/STAFF FROM ED @ [id number]
[2019-12-23 00:37] LABS: Microscopic, Urine URINE MICROSCOPIC (MICROSCOPIC)
[2019-12-23 00:39] LABS: Appearance,Urine CLEAR (Clear); Blood, Urine TRACE-I (Negative); Color,Urine YELLOW (Yellow); Glucose,Urine (UA) Negative (Negative); Ketones,Urine 2+ (Negative); Leukocyte Esterase,Urine Negative (Negative); Nitrate,Urine Negative (Negative); PH,Urine 5.5 (5.0-8.5); Protein,Urine TRACE (Negative); Urobilinogen,Urine 0.2 EU/dl (0.2)
[2019-12-23 00:50] LABS: Bilirubin,Urine Negative (Negative)
[2019-12-23 01:02] LABS: Bacteria,Urine 1+ /lpf; Mucus,Urine 1+ /lpf; Squamous Epithelial Cell,Urine TNTC #/hpf (0-5); WBC,Urine Occasional #/hpf (0-3)
--- NOTE | 2019-12-23 03:34 | PC.NURSE ---
Addendum entered by Brie Beckman RN 12/23/19 06:05: C?o nausea this am. Administered Zofran per MAY. Upon reassessment pt denies any further symptoms. Original Note: Pt is alert and oriented x4. DNR code status requested per pt. Pt has rested well with eyes closed this shift. Denies pain when asked. PERRLA. Bilateral hand lime kiln and recausticizing operator noted equal and strong. Cap refill < 3 seconds. Tolerated RA well with no c/o SOA. RR noted even and unlabored. Bilateral lungs noted clear t/o upon auscultation. Hyperactive bowel sounds noted in all 4 quads. No c/o nausea or vomiting since arriving to unit from ER. Remains NPO. States she has had a few soft stools at home, but no BM since arriving to unit this shift. UA sent to lab. Urine noted clear and dark yellow in color. No edema. Refused TEDS. VSS. Remains safe. Son at bedside. Call light within reach. Will continue to monitor.
[2019-12-23 03:55] VITALS: BP 138/78; PULSE 76; RESP 16; TEMP 36.7; O2SAT 100
[2019-12-23 06:33] LABS: Basophils % 0.4 % (0.1-2.0); Eosinophils # 0.4 K/mm3 (0.0-0.4); Eosinophils % 5.9 % (0.1-12.0); Hematocrit 33.4 % (37.0-47.0); Lymphocytes # 1.1 K/mm3 (0.7-4.5); Lymphocytes % 15.4 % (10-50); Mean Corpuscular HGB Conc 32.5 g/dL (31.8-35.4); Mean Corpuscular Volume 86.1 fl (81-99); Mean Platelet Volume 7.1 fl (7.4-10.4); Monocytes # 0.7 K/mm3 (0.1-1.0); Monocytes % 10.3 % (1.7-9.3); Neutrophils # 4.7 K/mm3 (1.8-7.8); Neutrophils % 68.1 % (37.0-80.0); Platelet Count 288 K/mm3 (142-424); Red Blood Count 3.88 M/mm3 (4.20-5.40); Red Cell Distribution Width 14.4 % (11.5-17.5); White Blood Count 6.9 K/mm3 (4.8-10.8)
[2019-12-23 06:42] LABS: Chloride 104 mmol/L (98-107); Sodium 138 mmol/L (136-145)
[2019-12-23 06:43] LABS: Potassium 3.7 mmoL/L (3.5-5.1)
[2019-12-23 06:45] LABS: Blood Urea Nitrogen 10 mg/dl (7-17); Creatinine Clearance Estimated 104 mL/min (50-200); Estimated Glomerular Filt Rate 87 ml/min (>60); GFR (African American) 105 ML/MIN (>60)
[2019-12-23 06:46] LABS: Anion Gap 12.7 mEq/L (5-15); Carbon Dioxide 25 mmol/L (22.0-30.0); Glucose 103 mg/dl (74-100)
[2019-12-23 07:01] LABS: Hemoglobin 10.9 g/dL (12.2-16.2)
--- NOTE | 2019-12-23 07:19 | HMH.GSCON ---
*Admission Date: 12/22/19 *Reason for consult:: Abnormal appendix on CT scan *History of present illness: Patient is a pleasant 54-year-old female with metastatic renal cell carcinoma. She is followed by Dr. Abreu. She does have a pain pump for chronic pain. She presented to the emergency department yesterday evening with a 5-day history of nausea and vomiting. Work-up included CT scan which revealed findings of 6 mm appendix with possible subtle stranding. White blood cell count is normal. She was admitted for inpatient management and surgical consultation for the findings on CT scan. Patient has been moving her bowels regularly. She describes some diffuse abdominal discomfort. Review of Systems - Review of Systems Review of systems:: pertinent systems reviewed and negative unless documented below - *Neurologic Denies abnormal speech, Denies dizziness, Denies headache(s), Denies numbness, Denies dizziness [facility] History Medical History: Reports:: Cancer, Congestive Heart Failure, Hyperlipidemia, Hypertension Denies:: Coronary Artery Disease, Diabetes Mellitus Type 1, Diabetes Mellitus Type 2, Internal Pacemaker, MRSA, Seizures *Have you ever received a pneumonia vaccine?: Yes *Have you received a flu vaccine this season?: No Other Medical History: Reports: Anemia, Blood Transfusion Reaction, Chemotherapy, Hormone Therapy, Hypothyroidism, Radiation Therapy, Thyroid Disease Laterality Cases: Left: Breast Biopsy, Right: Carpal Tunnel Release Other Surgeries: Yes: Cancer Surgery (renal biopsy, lt axillary node bx), , Hysterectomy-Total, Other (renal biopsy; lt axillary node biopsy). No: Pacemaker Amputation: No Fractures: No - *Social History Last grade of school completed: Advanced degree Smoking Status: Former smoker Tobacco Type: cigarettes # Packs/Day (cigarettes): 1 #Yrs smoked (if former smoker): 20 Alcohol Intake: never Alcohol Intake Frequency:: other Substance Use Type: denies use *Occupational Status:: disabled Housing: house Household Members: spouse, family *Travel in the last 8 weeks: None Family Hx:: Cancer, Coronary Artery Disease, Heart Attack, Hyperlipidemia, Hypertension, Stroke Meds Home Medications Medication Instructions Recorded Confirmed Type estradioL [Estradiol] 2 mg PO DAILY 07/03/18 12/23/19 History duloxetine 20 mg capsule,delayed 30 mg PO BID 10/10/18 12/23/19 History release hydrOXYzine HCL [Hydroxyzine HCl] 1 - 2 tab PO DAILY PRN 12/05/18 12/23/19 History Gabapentin [Gabapentin 100mg Cap] 200 mg PO HS 05/14/19 12/23/19 History Nivolumab [Opdivo] 40 mg IV MONTHLY 08/13/19 12/23/19 History fentaNYL [fentaNYL Patch 12mcg/hr] 12 mcg TD Q72H 10/31/19 12/23/19 History Levothyroxine Sodium 150 mcg PO DAILY 11/21/19 12/23/19 History [Levothyroxine 150mcg (0.15mg) Tab] lisinopriL [Lisinopril 10mg Tab] 10 mg PO DAILY 11/21/19 12/23/19 History Oxycodone HCl [Oxycodone (IR) 10mg 10 mg PO BID 12/22/19 12/23/19 History Tab] Melatonin 10 mg PO HS PRN 12/23/19 12/23/19 History Allergies Allergy/AdvReac Type Severity Reaction Status Date / Time adalimumab [From Humira] Allergy Severe Rash Verified 12/12/19 11:07 metoclopramide [From Reglan] AdvReac Anxiety Verified 12/22/19 23:25 Exam Vital signs and Labs for Last 24 Hours: Temp Pulse Resp BP Pulse Ox 98.0 F 76 16 138/78 100 12/23/19 03:55 12/23/19 03:55 12/23/19 03:55 12/23/19 03:55 12/23/19 03:55 Laboratory Results - last 24 hr 12/22/19 19:27: WBC 6.1, RBC 4.74, Hgb 13.2, Hct 40.0, MCV 84.5, MCH 27.8, MCHC 32.9, RDW 14.3, Plt Count 348, MPV 7.3 L, Neut % (Auto) 70.8, Lymph % (Auto) 15.3, [place] % (Auto) 8.0, Eos % (Auto) 5.3, Baso % (Auto) 0.7, Neut # (Auto) 4.3, Lymph # (Auto) 0.9, [place] # (Auto) 0.5, Eos # (Auto) 0.3, Baso # (Auto) 0.0 12/22/19 19:27: Sodium 137, Potassium 3.9, Chloride 99, Carbon Dioxide 26, Anion Gap 15.9 H, BUN 10, Creatinine 0.80, Estimated Creat Clear 101, Estimated GFR 74, Est GFR (
[2019-12-23 07:46] VITALS: BP 140/83; PULSE 83; RESP 19; TEMP 36.8; O2SAT 95
--- NOTE | 2019-12-23 07:55 | HMH.HP ---
*Admission Date: 12/22/19 <Narda Johnson - 12/23/19 08:19> *Chief complaint: Abdominal pain with nausea and vomiting <Narda Johnson - 12/23/19 08:19> *History of present illness: Ms. Carter is a 54-year-old female with a history of hypothyroidism, hypertension, hyperlipidemia, metastatic renal cell carcinoma followed by Dr. Abreu and with pain management per Dr. Daniels. She currently receives chemotherapy every 3 weeks as directed per Dr. Abreu. She also sees pain management every 2 weeks. She has a morphine pump along with a fentanyl patch and oxycodone. She presented to [facility] after 6 days of abdominal pain, nausea and vomiting. She states that she was unable to retain any fluids or food. Her urinary output had decreased. She was started on Phenergan yesterday but was unable to retain. She did experience some loose stools yesterday as well. She denies fever and any upper respiratory symptoms. Thus she presented to [facility] ER for evaluation In the emergency room she was treated with a fluid bolus And IV Phenergan. CT of the abdomen revealed findings of a 6 mm appendix with possible subtle stranding. White blood cell count was noted to be normal. She was then admitted for inpatient management along with surgical consultation due to the findings on the CT scan. This a.m. patient has had some pain medication and IV Phenergan. She has been seen by Dr. Velazco who plans to review the CT scan with radiology and compare to her recent CT scan done about 4 weeks ago. He was doubtful for the diagnosis of appendicitis. Patient states she slept very little last night. She would like to try clear liquids when approved by the surgeon. With hydration hemoglobin has gone from 13.2 down to 10.9 and hematocrit of 40 down to 33.4. Electrolytes are normal. Renal function is normal. White count remains normal at 6900. <Narda Johnson 12/23/19 08:19> [facility] History Medical History: Reports:: Cancer, Congestive Heart Failure, Hyperlipidemia, Hypertension Denies:: Coronary Artery Disease, Diabetes Mellitus Type 1, Diabetes Mellitus Type 2, Internal Pacemaker, MRSA, Seizures <Narda Johnson 12/23/19 08:19> *Have you ever received a pneumonia vaccine?: Yes <Ny Johnsonhy 12/23/19 08:19> *Have you received a flu vaccine this season?: No <JohnsonNarda 12/23/19 08:19> Other Medical History: Reports: Anemia, Blood Transfusion Reaction, Chemotherapy, Hormone Therapy, Hypothyroidism, Radiation Therapy, Thyroid Disease <JohnsonNarda 12/23/19 08:19> Laterality Cases: Left: Breast Biopsy, Right: Carpal Tunnel Release <Johnson,Narda 12/23/19 08:19> Other Surgeries: Yes: Cancer Surgery (renal biopsy, lt axillary node bx), , Hysterectomy-Total, Other (renal biopsy; lt axillary node biopsy). No: Pacemaker <JohnsonNarda 12/23/19 08:19> Amputation: No <Narda Johnson 12/23/19 08:19> Fractures: No <JohnsonNarda 12/23/19 08:19> - *Social History Last grade of school completed: Advanced degree <AlexNarda 12/23/19 08:19> Smoking Status: Former smoker <Narda Johnson 12/23/19 08:19> Tobacco Type: cigarettes <AlexNarda 12/23/19 08:19> # Packs/Day (cigarettes): 1 <AlexNarda 12/23/19 08:19> #Yrs smoked (if former smoker): 20 <Johnson,Narda 12/23/19 08:19> Alcohol Intake: never <AlexNarda 12/23/19 08:19> Alcohol Intake Frequency:: other <Narda Johnson 12/23/19 08:19> Substance Use Type: denies use <AlexNarda 12/23/19 08:19> *Occupational Status:: disabled <Narda Johnson 12/23/19 08:19> Housing: house <Narda Johnson 12/23/19 08:19> Household Members: spouse, family <Narda Johnson 12/23/19 08:19> *Travel in the last 8 weeks: None <Narda Johnson 12/23/19 08:19> Family Hx:: Cancer, Coronary Artery Disease, Heart Attack, Hyperlipidemia, Hypertension, Stroke <Narda Johnson 12/23/19 08:19> Review of Systems - Constitutional Denies chills, Denies fever(s
[2019-12-23 08:00] VITALS: O2SAT 95
[2019-12-23 11:42] LABS: Calcium 8.2 mg/dl (8.4-10.2)
--- NOTE | 2019-12-23 11:51 | HMH.PHAVTE ---
[facility] Pharmacy VTE Monitoring - Patient Demographics Admission date: 12/23/19 Report Date: 12/23/19 Time: 11:51 Allergies/Adverse Reactions: Patient Allergies adalimumab [From Humira] Allergy (Severe, Verified 12/12/19 11:07) Rash metoclopramide [From Reglan] Adverse Reaction (Verified 12/22/19 23:25) Anxiety Height: 1.65 m Weight: 73.709 kg Patient Problems: Current Active Problems Vomiting (Acute) - VTE Risk Labs: VTE Related Lab Results Hgb 10.9 g/dL (12.2-16.2) L D 12/23/19 05:55 Hct 33.4 % (37.0-47.0) L 12/23/19 05:55 Plt Count 288 K/mm3 (142-424) 12/23/19 05:55 BUN 10 mg/dl (7-17) 12/23/19 05:55 Creatinine 0.70 mg/dl (0.52-1.04) 12/23/19 05:55 Estimated Creat Clear 104 mL/min (50-200) 12/23/19 05:55 Was VTE Risk Assessment Performed: No VTE Score: 3 VTE Risk Level: Low Risk Clinical Trial Participant: No - Prophylaxis VTE Prophylaxis Ordered?: Yes Types of VTE Prophylaxis: TEDS Knee High
[2019-12-23 16:00] VITALS: BP 124/85; PULSE 86; RESP 19; TEMP 36.6; O2SAT 100
--- NOTE | 2019-12-23 17:45 | PC.NURSE ---
Addendum entered by Delisa Han RN 12/23/19 18:09: dr. dick made aware of pt states she felt her eyes were swollen. no new orders. Original Note: pt has had intermintnet episodes of nausea, md notified and put orders in himself. desired effect noted. no other complaints. ambulates to bathroom independently. has tolerated clear liquid diet fair. pt feels her eyes look swollen but states she did not sleep last night, they appear no different than this morning assessment. vss. will cont. to monitor.
[2019-12-23 21:12] VITALS: BP 137/67; PULSE 72; RESP 18; TEMP 36.9; O2SAT 97
[2019-12-24 04:00] VITALS: BP 131/70; PULSE 84; RESP 18; TEMP 36.6; O2SAT 98
[2019-12-24 05:21] VITALS: BMI 27.1
--- NOTE | 2019-12-24 05:52 | PC.NURSE ---
Pt rested well t/o night. Woke up this am nauseated and began to vomit. Zofran administered. Pt gave herself a partial bath while staff changed bed linens. VS have remained stable this shift.Lungs are CTA. BS active. Pt c/o headache last night during shift change x1. Toradol administered x1. No additional complaints. Son has remained at bedside. Will continue to monitor.
[2019-12-24 06:21] LABS: Basophils % 0.6 % (0.1-2.0); Eosinophils # 0.5 K/mm3 (0.0-0.4); Eosinophils % 9.2 % (0.1-12.0); Hematocrit 32.9 % (37.0-47.0); Hemoglobin 10.7 g/dL (12.2-16.2); Lymphocytes # 0.9 K/mm3 (0.7-4.5); Lymphocytes % 16.6 % (10-50); Mean Corpuscular HGB Conc 32.5 g/dL (31.8-35.4); Mean Corpuscular Hemoglobin 27.9 pg (27.0-31.2); Mean Corpuscular Volume 85.9 fl (81-99); Mean Platelet Volume 7.6 fl (7.4-10.4); Monocytes # 0.5 K/mm3 (0.1-1.0); Monocytes % 10.1 % (1.7-9.3); Neutrophils # 3.3 K/mm3 (1.8-7.8); Neutrophils % 63.6 % (37.0-80.0); Platelet Count 285 K/mm3 (142-424); Red Blood Count 3.83 M/mm3 (4.20-5.40); Red Cell Distribution Width 14.3 % (11.5-17.5); White Blood Count 5.2 K/mm3 (4.8-10.8)
[2019-12-24 06:23] LABS: Chloride 107 mmol/L (98-107); Potassium 3.4 mmoL/L (3.5-5.1); Sodium 137 mmol/L (136-145)
[2019-12-24 06:26] LABS: Anion Gap 12.4 mEq/L (5-15); Blood Urea Nitrogen 8 mg/dl (7-17); Carbon Dioxide 21 mmol/L (22.0-30.0); Creatinine Clearance Estimated 105 mL/min (50-200); Estimated Glomerular Filt Rate 87 ml/min (>60); GFR (African American) 105 ML/MIN (>60); Glucose 95 mg/dl (74-100)
--- NOTE | 2019-12-24 07:54 | HMH.GSPN ---
Subjective Narrative: Patient denies any abdominal pains. She has had some loose stools. She had taken clear liquids yesterday for lunch and dinner. This morning she had nausea and some vomiting. Progress Note: A&P (1) Vomiting Status: Acute Current Visit: Yes (2) Abdominal pain Status: Acute Current Visit: No (3) Anemia Status: Acute Current Visit: No (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 Status: Chronic Current Visit: No (5) Hyperlipidemia Status: Chronic Current Visit: No (6) Hypertension Status: Chronic Current Visit: No (7) Hypothyroid Status: Chronic Current Visit: No (8) Metastatic renal cell carcinoma Status: Chronic Current Visit: No Assessment and Plan for All Diagnoses:: At this point seems quite unlikely that her symptoms are of a surgical nature. Appendix on recent CT scan had similar appearance to appendix on CT scan several weeks ago other than some very subtle possible haziness around the appendix on most recent CT scan. Therefore appendicitis appears extremely unlikely. No evidence of obstruction on CT scan or clinically. Condition appears to be likely medical in nature. Exam Vital signs and Labs for Last 24 Hours: Temp Pulse Resp BP Pulse Ox 98 F 84 18 131/70 98 12/24/19 04:00 12/24/19 04:00 12/24/19 04:00 12/24/19 04:00 12/24/19 04:00 Laboratory Results - last 24 hr 12/23/19 05:55: Calcium 8.2 L D 12/24/19 05:30: WBC 5.2, RBC 3.83 L, Hgb 10.7 L, Hct 32.9 L, MCV 85.9, MCH 27.9, MCHC 32.5, RDW 14.3, Plt Count 285, MPV 7.6, Neut % (Auto) 63.6, Lymph % (Auto) 16.6, [place] % (Auto) 10.1 H, Eos % (Auto) 9.2, Baso % (Auto) 0.6, Neut # (Auto) 3.3, Lymph # (Auto) 0.9, [place] # (Auto) 0.5, Eos # (Auto) 0.5 H, Baso # (Auto) 0.0 12/24/19 05:30: Sodium 137, Potassium 3.4 L, Chloride 107, Carbon Dioxide 21 L, Anion Gap 12.4, BUN 8, Creatinine 0.70, Estimated Creat Clear 105, Estimated GFR 87, Est GFR ( Amer) 105, Glucose 95, Calcium 8.0 L I & O for Last 24 hours: Intake & Output 12/21/19 12/22/19 12/23/19 12/24/19 11:59 11:59 11:59 11:59 Intake Total 1568 / 1568 1230 / 1230 Output Total 320 / 320 200 / 200 Balance 1248 / 1248 1030 / 1030 Weight 162 lb 8 oz 163 lb 2 oz - *Routine Abdominal Exam Absent: tenderness
[2019-12-24 08:00] VITALS: BP 144/79; PULSE 83; RESP 16; TEMP 36.7; O2SAT 100
--- NOTE | 2019-12-24 08:23 | HMH.ACPN2 ---
<Narda Johnson - Last Filed: 12/24/19 08:23> Internal Medicine - PN: Subj *Date: 12/24/19 *Time: 08:23 Interval history: Patient states she does not feel any better. She is continued with nausea and vomiting and really has not retained much of p.o. fluids. She is voiding more. She ambulates to the bathroom. She slept about 2 hours last night. She continues with the diarrhea as well. Laboratory data reveals a stable hemoglobin and hematocrit at 10.7/32.9. Blood chemistries reveal a slightly low potassium at 3.4. Exam Vital signs and Labs for Last 24 Hours: Temp Pulse Resp BP Pulse Ox 98 F 84 18 131/70 98 12/24/19 04:00 12/24/19 04:00 12/24/19 04:00 12/24/19 04:00 12/24/19 04:00 Laboratory Results - last 24 hr 12/23/19 05:55: Calcium 8.2 L D 12/24/19 05:30: WBC 5.2, RBC 3.83 L, Hgb 10.7 L, Hct 32.9 L, MCV 85.9, MCH 27.9, MCHC 32.5, RDW 14.3, Plt Count 285, MPV 7.6, Neut % (Auto) 63.6, Lymph % (Auto) 16.6, [place] % (Auto) 10.1 H, Eos % (Auto) 9.2, Baso % (Auto) 0.6, Neut # (Auto) 3.3, Lymph # (Auto) 0.9, [place] # (Auto) 0.5, Eos # (Auto) 0.5 H, Baso # (Auto) 0.0 12/24/19 05:30: Sodium 137, Potassium 3.4 L, Chloride 107, Carbon Dioxide 21 L, Anion Gap 12.4, BUN 8, Creatinine 0.70, Estimated Creat Clear 105, Estimated GFR 87, Est GFR ( Amer) 105, Glucose 95, Calcium 8.0 L I & O for Last 24 hours: Intake & Output 12/21/19 12/22/19 12/23/19 12/24/19 11:59 11:59 11:59 11:59 Intake Total 1568 / 1568 1230 / 1230 Output Total 320 / 320 200 / 200 Balance 1248 / 1248 1030 / 1030 Weight 162 lb 8 oz 163 lb 2 oz - Constitutional no acute distress - *Routine Respiratory Exam Present: other Comments: Some crackles on the right. - *Routine Cardiovascular Exam Present: RRR - *Routine Abdominal Exam Present: soft, normoactive bowel sounds. Absent: tenderness - *Routine Extremities Exam Present: full ROM, pulses intact. Absent: edema, calf tenderness - *Routine Neurological Exam Present: alert, oriented X3 Assessment and Plan (1) Vomiting Current visit: Yes Status: Acute Qualifiers: Vomiting type: unspecified Vomiting Intractability: unspecified Nausea presence: unspecified Qualified Code(s): R11.10 - Vomiting, unspecified Category: Medical Code(s): R11.10 - Vomiting, unspecified (2) Abdominal pain Current visit: No Status: Acute Category: Medical Code(s): R10.9 - Unspecified abdominal pain (3) Anemia Current visit: No Status: Acute Category: Medical Code(s): D64.9 - Anemia, unspecified (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 Current visit: No Status: Chronic Category: Medical Code(s): M47.816 - Spondylosis without myelopathy or radiculopathy, lumbar region (5) Hyperlipidemia Current visit: No Status: Chronic Category: Medical Code(s): E78.5 - Hyperlipidemia, unspecified (6) Hypertension Current visit: No Status: Chronic Category: Medical Code(s): I10 - Essential (primary) hypertension (7) Hypothyroid Current visit: No Status: Chronic Category: Medical Code(s): E03.9 - Hypothyroidism, unspecified (8) Metastatic renal cell carcinoma Current visit: No Status: Chronic Qualifiers: Laterality: unspecified laterality Qualified Code(s): C64.9 - Malignant neoplasm of unspecified kidney, except renal pelvis Category: Medical Code(s): C64.9 - Malignant neoplasm of unspecified kidney, except renal pelvis (9) Hypokalemia Current visit: Yes Status: Acute Category: Medical Code(s): E87.6 - Hypokalemia - Assessment and plan all Dx Assessment and Plan for all problems:: Continue with IV fluids and changed to D5 one half normal saline with KCl due to low potassium. Will obtain a diarrhea panel. Also will continue anti-emetics. <Aurora,Guillaume - Last Filed: 12/24/19 13:46> Internal Medicine - PN: Subj *Date: 12/24/19 *Time: 13:46 Exam Vital signs and Labs for L
[2019-12-24 10:41] VITALS: BMI 27.1
--- NOTE | 2019-12-24 15:33 | PC.NURSE ---
stool sample obtained and sent to lab. Stool is liquid
[2019-12-24 15:41] LABS: Adenovirus F 40/41, stool Not Detected (NotDetected); Astrovirus Not Detected (NotDetected); Campylobacter Not Detected (NotDetected); Clostridium Difficile A/B, PCR Not Detected (NotDetected); Cryptosporidium Not Detected (NotDetected); Cyclospora Cayetanesis Not Detected (NotDetected); Entamoeba histolytica Not Detected (NotDetected); Enteroaggregative E coli Not Detected (NotDetected); Enteropathogenic E coli Not Detected (NotDetected); Enterotoxigenic E coli Not Detected (NotDetected); Giardia lamblia Not Detected (NotDetected); Norovirus Not Detected (NotDetected); Plesimonas Shigalloides, PCR Not Detected (NotDetected); Rotavirus A Not Detected (NotDetected); Salmonella, PCR Not Detected (NotDetected); Sapovirus Not Detected (NotDetected); Shiga-like toxin E coli Not Detected (NotDetected); Shigella Enterovasive E coli Not Detected (NotDetected); Vibrio Cholerae Not Detected (NotDetected); Vibrio, PCR Not Detected (NotDetected); Yersinia Entercolitica, PCR Not Detected (NotDetected)
[2019-12-24 16:00] VITALS: BP 129/63; PULSE 81; RESP 16; TEMP 37; O2SAT 97
--- NOTE | 2019-12-24 18:05 | PC.NURSE ---
IV pump was not cleared by chain pegger this AM. My I&O reflects this
--- NOTE | 2019-12-24 18:08 | PC.NURSE ---
IV pump was not cleared by machinist 2nd shift this AM. My I&O reflects this
--- NOTE | 2019-12-24 19:27 | PC.NURSE ---
report given to andrew
[2019-12-24 20:00] VITALS: BP 141/73; PULSE 83; RESP 18; TEMP 36.5; O2SAT 99
[2019-12-25] VITALS: BP 144/81; PULSE 87; RESP 18; TEMP 37.1; O2SAT 96
--- NOTE | 2019-12-25 00:05 | PC.NURSE ---
Pt continuing to have frequent episodes of nausea and vomiting this shift. Thus far 2 emesis episodes noted and measured. Meds administered per MAR. Pt states she feels like the pain medication in the pain pump is a contributing factor to this ongoing nausea and vomiting. She is requesting for the pain pump to be turned off as soon as possible via MD Daniels office staff. She states Lisa is the one who usually helps her with the pain pump and is very knowledgeable. Pt has not tolerated her diet well.
--- NOTE | 2019-12-25 02:38 | PC.NURSE ---
Pt is alert and oriented x4. No acute changes noted from previous shift. Pt rested intermittently t/o shift. C/o generalized pain and body aches. Administered Toradol for pain relief x1 per MAR. Upon reassessment pt states adequate pain relief. PERRLA. Bilateral hand lotus notes developer noted equal and strong. Cap refill < 3 seconds. Bilateral breath sounds noted clear t/o upon auscultation. Tolerated RA well with no c/o SOA. Denies abd tenderness upon palpation. C/o persistent N/V/D. Thus far 2 episodes of emesis have occurred. Administered Zofran per MAY x1 per request. Upon reassessment pt denies further nausea/vomiting. Active bowel sounds noted in all 4 quads upon auscultation. No edema noted. Pt requested for this RN to palpate around her right kidney region due to collection of fluid occurring under her skin concerning her. Pt states this fluid has been palatable for awhile now and that she brought it to the attention of Lois MD and no concern was noted. Pt states I think it is lymphedema . Refused TEDS. Amb independently t/o room. VSS. Remains safe. Son at bedside t/o shift. Will continue to monitor.
[2019-12-25 04:00] VITALS: BP 143/71; PULSE 86; RESP 16; TEMP 37.1; O2SAT 98
[2019-12-25 05:56] VITALS: BMI 27.8
[2019-12-25 06:02] LABS: Basophils % 0.3 % (0.1-2.0); Eosinophils # 0.5 K/mm3 (0.0-0.4); Eosinophils % 8.1 % (0.1-12.0); Hematocrit 31.4 % (37.0-47.0); Hemoglobin 10.6 g/dL (12.2-16.2); Lymphocytes # 0.8 K/mm3 (0.7-4.5); Lymphocytes % 14.8 % (10-50); Mean Corpuscular HGB Conc 33.9 g/dL (31.8-35.4); Mean Corpuscular Volume 82.6 fl (81-99); Mean Platelet Volume 8.2 fl (7.4-10.4); Monocytes # 0.7 K/mm3 (0.1-1.0); Neutrophils # 3.7 K/mm3 (1.8-7.8); Neutrophils % 64.8 % (37.0-80.0); Platelet Count 302 K/mm3 (142-424); Red Blood Count 3.79 M/mm3 (4.20-5.40); Red Cell Distribution Width 14.4 % (11.5-17.5); White Blood Count 5.6 K/mm3 (4.8-10.8)
[2019-12-25 06:09] LABS: Chloride 105 mmol/L (98-107)
[2019-12-25 06:10] LABS: Sodium 134 mmol/L (136-145)
[2019-12-25 06:12] LABS: Blood Urea Nitrogen 5 mg/dl (7-17); Creatinine Clearance Estimated 125 mL/min (50-200); Estimated Glomerular Filt Rate 103 ml/min (>60); GFR (African American) 125 ML/MIN (>60)
[2019-12-25 06:13] LABS: Carbon Dioxide 23 mmol/L (22.0-30.0); Glucose 132 mg/dl (74-100)
[2019-12-25 07:52] VITALS: BP 136/72; PULSE 88; RESP 18; TEMP 36.8; O2SAT 98
--- NOTE | 2019-12-25 08:20 | HMH.ACPN2 ---
<Sagrario Akins - Last Filed: 12/25/19 08:20> Internal Medicine - PN: Subj *Date: 12/25/19 *Time: 08:20 Interval history: Pt reports little rest overnight between diarrhea episodes. She has continued with emesis after any po intake. She denies pain other than abdominal discomfort associated with episodes of vomiting and diarrhea. She is concerned that current symptoms may be related to her morphine pain pump. Exam Vital signs and Labs for Last 24 Hours: Temp Pulse Resp BP Pulse Ox 98.2 F 88 18 136/72 98 12/25/19 07:52 12/25/19 07:52 12/25/19 07:52 12/25/19 07:52 12/25/19 07:52 Laboratory Results - last 24 hr 12/24/19 15:35: Stl Aeromonas (PCR) Not detected, Stl C. cayetanensis PCR Not detected, Stool Rotavirus (PCR) Not detected, Stl Adenov F 40/41 PCR Not detected, Stool Astrovirus (PCR) Not detected, Stool Campylobacter PCR Not detected, Stl C.difficile Tox PCR Not detected, Stool Cryptosporidium PCR Not detected, Stl E.coli Shiga Tox PCR Not detected, Stool E coli O157 PCR Not detected, Stl Enterotoxigenic E PCR Not detected, Stool EPEC (PCR) Not detected, Stool EAEC (PCR) Not detected, Stl E. histolytica PCR Not detected, Stool Giardia Lamblia PCR Not detected, Stool Salmonella PCR Not detected, Stool Sapovirus (PCR) Not detected, Stl P. shigelloides PCR Not detected, Stl Shigella/EIEC PCR Not detected, St Y.enterocolitica PCR Not detected, Stool Vibrio (PCR) Not detected, Stl Vibrio cholerae PCR Not detected, Stl Norovirus GI/GII PCR Not detected 12/25/19 05:41: WBC 5.6, RBC 3.79 L, Hgb 10.6 L, Hct 31.4 L, MCV 82.6, MCH 28.0, MCHC 33.9, RDW 14.4, Plt Count 302, MPV 8.2, Neut % (Auto) 64.8, Lymph % (Auto) 14.8, [place] % (Auto) 12.0 H, Eos % (Auto) 8.1, Baso % (Auto) 0.3, Neut # (Auto) 3.7, Lymph # (Auto) 0.8, [place] # (Auto) 0.7, Eos # (Auto) 0.5 H, Baso # (Auto) 0.0 12/25/19 05:41: Sodium 134 L, Potassium 4.0, Chloride 105, Carbon Dioxide 23, Anion Gap 10.0, BUN 5 L D, Creatinine 0.60, Estimated Creat Clear 125, Estimated GFR 103, Est GFR ( Amer) 125, Glucose 132 H, Calcium 8.0 L I & O for Last 24 hours: Intake & Output 12/22/19 12/23/19 12/24/19 12/25/19 11:59 11:59 11:59 11:59 Intake Total 1568 / 1568 1470 / 1470 3438 / 3438 Output Total 320 / 320 200 / 200 2049 / 2049 Balance 1248 / 1248 1270 / 1270 1388 / 1388 Weight 162 lb 8 oz 163 lb 1.991 oz 167 lb 3 oz Microbiology Reports for the Last 24 Hours: Microbiology 12/22/19 20:10 Blood Blood Culture - Preliminary NO GROWTH AFTER 48 HOURS 12/22/19 20:10 Blood Blood Culture - Preliminary NO GROWTH AFTER 48 HOURS - Constitutional Comments: no acute distress although she appears not to feel well - *Routine HEENT Exam Head: Present: normocephalic ENT: Present: mucous membranes moist - *Routine Respiratory Exam Comments: CTAB A&P - *Routine Cardiovascular Exam Present: RRR - *Routine Abdominal Exam Present: soft, normoactive bowel sounds. Absent: tenderness, distended, guarding, firm, rigid - *Routine Extremities Exam Present: full ROM, pulses intact. Absent: edema, calf tenderness - *Routine Neurological Exam Present: alert, oriented X3, moving all extremities, normal speech Assessment and Plan (1) Vomiting Current visit: Yes Status: Acute Qualifiers: Vomiting type: unspecified Vomiting Intractability: unspecified Nausea presence: unspecified Qualified Code(s): R11.10 - Vomiting, unspecified Category: Medical Code(s): R11.10 - Vomiting, unspecified (2) Abdominal pain Current visit: No Status: Acute Category: Medical Code(s): R10.9 - Unspecified abdominal pain (3) Anemia Current visit: No Status: Acute Category: Medical Code(s): D64.9 - Anemia, unspecified (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 Current visit: No Status: Chronic Category: Medical Code(s): M47.816 - Spondylosis without myelopath
[2019-12-25 15:52] VITALS: BP 138/70; PULSE 60; RESP 20; TEMP 36.8; O2SAT 95
--- NOTE | 2019-12-25 16:34 | HMH.CONS ---
*Admission Date: 12/23/19 *History of present illness: Patient is a pleasant 54-year-old female with metastatic renal cell carcinoma. she is on IO with yervoy and opdivo every 3 weeks. she has been tolerating this well andoverall disease has recently been stable with ?increase in left axillary lad. She does have a pain pump for chronic pain. She presented to the emergency department on 12/21 with a 5-day history of nausea and vomiting and diarrhea. Work-up included CT scan which revealed findings of 6 mm appendix with possible subtle stranding. White blood cell count is normal. surgeyr was consulted and not felt to be surgical abdomen. this am pt had pain pump discontinued. this afternoon per nursing diarrhea and vomitting seem to have slowed down. [facility] History Medical History: Reports:: Cancer, Congestive Heart Failure, Hyperlipidemia, Hypertension Denies:: Coronary Artery Disease, Diabetes Mellitus Type 1, Diabetes Mellitus Type 2, Internal Pacemaker, MRSA, Seizures *Have you ever received a pneumonia vaccine?: Yes *Have you received a flu vaccine this season?: No Other Medical History: Reports: Anemia, Blood Transfusion Reaction, Chemotherapy, Hormone Therapy, Hypothyroidism, Radiation Therapy, Thyroid Disease Laterality Cases: Left: Breast Biopsy, Right: Carpal Tunnel Release Other Surgeries: Yes: Cancer Surgery (renal biopsy, lt axillary node bx), , Hysterectomy-Total, Other (renal biopsy; lt axillary node biopsy). No: Pacemaker Amputation: No Fractures: No - *Social History Last grade of school completed: Advanced degree Smoking Status: Former smoker Tobacco Type: cigarettes # Packs/Day (cigarettes): 1 #Yrs smoked (if former smoker): 20 Alcohol Intake: never Alcohol Intake Frequency:: other Substance Use Type: denies use *Occupational Status:: disabled Housing: house Household Members: spouse, family *Travel in the last 8 weeks: None Family Hx:: Cancer, Coronary Artery Disease, Heart Attack, Hyperlipidemia, Hypertension, Stroke Review of Systems - *Neurologic Denies abnormal walking, Denies abnormal speech, Denies dizziness, Denies headache(s), Denies numbness, Denies dizziness Meds Home Medications Medication Instructions Recorded Confirmed Type estradioL [Estradiol] 2 mg PO DAILY 07/03/18 12/23/19 History duloxetine 20 mg capsule,delayed 30 mg PO BID 10/10/18 12/23/19 History release hydrOXYzine HCL [Hydroxyzine HCl] 1 - 2 tab PO DAILY PRN 12/05/18 12/23/19 History Gabapentin [Gabapentin 100mg Cap] 300 mg PO HS 05/14/19 12/23/19 History Nivolumab [Opdivo] 40 mg IV MONTHLY 08/13/19 12/23/19 History fentaNYL [fentaNYL Patch 12mcg/hr] 12 mcg TD Q72H 10/31/19 12/23/19 History Levothyroxine Sodium 150 mcg PO DAILY 11/21/19 12/23/19 History [Levothyroxine 150mcg (0.15mg) Tab] lisinopriL [Lisinopril 10mg Tab] 10 mg PO DAILY 11/21/19 12/23/19 History Oxycodone HCl [Oxycodone (IR) 10mg 10 mg PO BID 12/22/19 12/23/19 History Tab] Melatonin 10 mg PO HS PRN 12/23/19 12/23/19 History Metoprolol Tartrate 50 mg PO BID 12/23/19 12/23/19 History Allergies Allergy/AdvReac Type Severity Reaction Status Date / Time adalimumab [From Humira] Allergy Severe Rash Verified 12/12/19 11:07 metoclopramide [From Reglan] AdvReac Anxiety Verified 12/22/19 23:25 Exam Vital signs and Labs for Last 24 Hours: Temp Pulse Resp BP Pulse Ox 98.2 F 60 20 138/70 95 12/25/19 15:52 12/25/19 15:52 12/25/19 15:52 12/25/19 15:52 12/25/19 15:52 Laboratory Results - last 24 hr 12/24/19 15:35: Stl Aeromonas (PCR) Not detected, Stl C. cayetanensis PCR Not detected, Stool Rotavirus (PCR) Not detected, Stl Adenov F 40/41 PCR Not detected, Stool Astrovirus (PCR) Not detected, Stool Campylobacter PCR Not detected, Stl C.difficile Tox PCR Not detected, Stool Cryptosporidium PCR Not detected, Stl E.coli Shiga Tox PCR Not detected, Stool E coli O157 PCR Not detected, Stl Enterotoxigenic E PCR Not detected, Stool EPEC (PCR
--- NOTE | 2019-12-25 18:51 | PC.NURSE ---
PATIENT IS A&O X4, LUNGS CLEAR, PULSES EQUAL. PATIENT COMPLAINS OF NAUSEA SEVERAL TIMES DURING THIS RN SHIFT. THIS RN HAS OFFERED NAUSEA MEDICATION. PATIENT REFUSED ON MULTIPLY OCCASIONS, STATING THAT THE NAUSEA IS NOT THAT BAD, I WILL WAIT. PATIENT HAD 3 EPISODES OF VOMITING DURING THIS RN SHIFT. EMESIS IS DARK GREEN IN COLOR, NO ODOR. PATIENT'S IV BECOMES VERY DIFFICULT TO FLUSH, PATIENT HAS HAD MULTIPLY IV LINES INSERTED DURING THIS RN SHIFT. 2 INSERTED WITH ULTRASOUND GUIDANCE. PATIENT NOW HAS 1 IV INTACT. THIS RN RECEIVED A PHONE CALL FROM DR. GTZ INQUIRING OF PATIENT'S STATUS. THIS RN REPORTED OF PATIENT VOMITING AND [address] GTZ STATED THAT SHE WILL WAIT ON STARTING STEROIDS AND TO PASS ALONG TO DR. TONY THAT IF HE NEEDS ANYTHING TO CALL IN AM. THIS RN REPORTED INFORMATION TO DR. TONY. NO OTHER CONCERNS AT THIS TIME.
[2019-12-25 20:00] VITALS: BP 167/89; PULSE 85; RESP 18; TEMP 36.9; O2SAT 98
[2019-12-26] VITALS: BP 149/81; PULSE 76; RESP 16; TEMP 36.8; O2SAT 99
[2019-12-26 04:00] VITALS: BP 142/75; PULSE 79; RESP 18; TEMP 36.6; O2SAT 100
--- NOTE | 2019-12-26 04:53 | PC.NURSE ---
Pt has rested well this shift. Pt has had x2 episodes of emesis thus far this shift. Emesis was a clear, green color with no odor. Pt has requested PRN antiemetic x1 this shift and has had favorable results upon reassessment. Lung sounds remain clear t/o all mnotesinos. PIV in ALIX remains patent and is infusing D5 1/2 NS w/ 20 MEQ K+. Pt's sister remains at bedside. No other acute changes or complaints at this time. Will continue to monitor.
[2019-12-26 05:44] VITALS: BMI 27.0
[2019-12-26 08:00] VITALS: BP 155/79; PULSE 74; RESP 16; TEMP 37.2; O2SAT 100; O2SAT 97
--- NOTE | 2019-12-26 08:09 | HMH.ACPN2 ---
<Sagrario Akins - Last Filed: 12/26/19 08:09> Internal Medicine - PN: Subj *Date: 12/26/19 *Time: 08:09 Interval history: She is resting quietly in bed this morning. She reports little improvement in vomiting and diarrhea since morphine pump was discontinued yesterday. She denies any pain other than some continued abdominal cramping associated with episodes of emesis and diarrhea. She has not been able to tolerate po and notes emesis after ice chips this morning. Exam Vital signs and Labs for Last 24 Hours: Temp Pulse Resp BP Pulse Ox 97.9 F 79 18 142/75 H 100 12/26/19 04:00 12/26/19 04:00 12/26/19 04:00 12/26/19 04:00 12/26/19 04:00 I & O for Last 24 hours: Intake & Output 12/23/19 12/24/19 12/25/19 12/26/19 11:59 11:59 11:59 11:59 Intake Total 1568 / 1568 1470 / 1470 3438 / 3438 2370 / 2370 Output Total 320 / 320 200 / 200 2050 / 2050 2900 / 2900 Balance 1248 / 1248 1270 / 1270 1388 / 1388 -530 / -530 Weight 162 lb 8 oz 163 lb 1.991 oz 167 lb 3 oz 162 lb 4 oz - Constitutional no acute distress Comments: appears not to feel well - *Routine HEENT Exam Head: Present: normocephalic ENT: Present: mucous membranes moist - *Routine Respiratory Exam Comments: CTAB A&P - *Routine Cardiovascular Exam Present: RRR - *Routine Abdominal Exam Present: soft, normoactive bowel sounds. Absent: tenderness, distended, guarding, firm, rigid - *Routine Extremities Exam Present: full ROM, pulses intact, ARIS stockings. Absent: edema, calf tenderness - *Routine Neurological Exam Present: alert, oriented X3, moving all extremities, normal speech Assessment and Plan (1) Vomiting Current visit: Yes Status: Acute Qualifiers: Vomiting type: unspecified Vomiting Intractability: unspecified Nausea presence: unspecified Qualified Code(s): R11.10 - Vomiting, unspecified Category: Medical Code(s): R11.10 - Vomiting, unspecified (2) Abdominal pain Current visit: No Status: Acute Category: Medical Code(s): R10.9 - Unspecified abdominal pain (3) Anemia Current visit: No Status: Acute Category: Medical Code(s): D64.9 - Anemia, unspecified (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 Current visit: No Status: Chronic Category: Medical Code(s): M47.816 - Spondylosis without myelopathy or radiculopathy, lumbar region (5) Hyperlipidemia Current visit: No Status: Chronic Category: Medical Code(s): E78.5 - Hyperlipidemia, unspecified (6) Hypertension Current visit: No Status: Chronic Category: Medical Code(s): I10 - Essential (primary) hypertension (7) Hypothyroid Current visit: No Status: Chronic Category: Medical Code(s): E03.9 - Hypothyroidism, unspecified (8) Metastatic renal cell carcinoma Current visit: No Status: Chronic Qualifiers: Laterality: unspecified laterality Qualified Code(s): C64.9 - Malignant neoplasm of unspecified kidney, except renal pelvis Category: Medical Code(s): C64.9 - Malignant neoplasm of unspecified kidney, except renal pelvis (9) Hypokalemia Current visit: Yes Status: Acute Category: Medical Code(s): E87.6 - Hypokalemia - Assessment and plan all Dx Assessment and Plan for all problems:: Dr. Abreu note seen and appreciated. Further per Dr. Toro. <Guillaume Toro - Last Filed: 12/26/19 08:39> Internal Medicine - PN: Subj *Date: 12/26/19 *Time: 08:37 Exam Vital signs and Labs for Last 24 Hours: Temp Pulse Resp BP Pulse Ox 97.9 F 79 18 142/75 H 97 12/26/19 04:00 12/26/19 04:00 12/26/19 04:00 12/26/19 04:00 12/26/19 08:00 I & O for Last 24 hours: Intake & Output 12/23/19 12/24/19 12/25/19 12/26/19 23:59 23:59 23:59 23:59 Intake Total 1748 / 1798 2994 / 2994 734 / 734 2370 / 2370 Output Total 520 / 520 1150 / 1150 2250 / 2500 1550 / 1550 Balance 1228 / 1278 1844 / 1844 -1516 / -1766 820 / 820 Weight 163 lb 1.991 oz 167 lb 3
--- NOTE | 2019-12-26 11:50 | DIET.NUTRFU ---
Pt reported that she has still been very nauseous and has been vomiting. Pt stated that she was ablt to eat half of a popsicle and plans to start marking popsicles on her menu. Pt reported that she does not like anything orange flavored. Offer pt breeze supplement but she declined and did not think she would drink those flavors. Pt reported the chicken broth being very good sometimes and terrible others. Staff will send strained chicken noodle soup instead of chicken broth packets. Will continue to monitor.
--- NOTE | 2019-12-26 15:18 | HMH.GEROBB ---
Gastroenterology Consult Consult:: Gastroenterology Consultation Date of Service-December 26, 2019 History of Present Illness: Mrs. Carter is a 54-year-old female who is here for intractable nausea, vomiting and diarrhea. She does have a history of renal cell carcinoma with metastasis and has been on immunotherapy. She also has had a morphine pump along with oxycodone and fentanyl patch. She presented to [facility] nearly 10 days ago with some epigastric abdominal pain, nausea and vomiting which has been going on for 10 to 12 days. She has had the diarrhea now for 4 days. This is new. She reports no gassiness or bloating. She did have a CT scan of the abdomen showing a 6 mm appendix with some possible stranding. The CT scan of the abdomen also showed mild thickening of the descending and sigmoid colon (possibly related to nondistention). The patient has been on Zofran and Phenergan with no relief. She does have a history of extrapyramidal side effects with the prior use of Reglan/metoclopramide. The patient reports no bloating, gassiness, belching. She has no appetite. She reports no hematochezia or melena. Her PCR gastrointestinal panel was negative. Her father had colon cancer. She has had no prior colonoscopy. The patient was given a dose of dexamethasone. Her bowel movements are green and bilious today but slightly more formed. She cannot keep food down. Past Medical History: 1. Renal cell carcinoma 2. Hypothyroidism 3. Hypertension Past Surgical History: 1. Breast biopsy 2. Carpal tunnel surgery 3. Hysterectomy (JOSE?BSO) 4. section 5. Renal biopsy Medications: 1. Fentanyl patch 2. Oxycodone as needed 3. Lisinopril 4. Levothyroxine 5. Gabapentin 6. Hydroxyzine 7. Estradiol 8. Opdivo ALLERGIES: 1. Reglan 2. Humira Social History: The patient reports no alcohol or tobacco. Family History: Father with colon cancer Review of Systems: See chart Physical Examination: Gen.: The patient is a well-developed well-nourished individual in no acute distress HEENT: Normocephalic/atraumatic extraocular movements are intact anicteric Neck: Supple no lymphadenopathy Chest: Clear to auscultation Cardiovascular: Regular rate and rhythm Abdomen: Normoactive bowel sounds nondistended, minimal tenderness in epigastrium, no masses, no hepatosplenomegaly Extremities: No edema Labs: Hemoglobin 13.2, hematocrit 40.0, AST 46, alkaline phosphatase 128, total bilirubin 0.5 PCR panel negative Radiology: See above additionally noted are the hepatic metastasis and left renal mass Impression/Plan: 1. Nausea/vomiting and diarrhea. This does appear as an enteritis but her PCR gastrointestinal panel was negative. Certainly there was some mild inflammatory change or thickening of the left colon but stranding around the appendix. This could be some ileitis. I would certainly consider corticosteroids (Solu-Medrol 60 mg IV every 8 hours. I also recommend stool testing for fecal calprotectin, fecal leukocytes, fecal lactoferrin and fecal elastase. Her pancreas on the scan was atrophic. I would also obtain pancreatic chemistries (amylase, lipase) and CRP and sedimentation rate. If the patient does not improve with corticosteroids, I would recommend that we do a colonoscopy and possibly upper endoscopy on Sunday. I do feel that this could be a unique paraneoplastic syndrome which occurs very commonly with renal cell carcinoma. Although, the paraneoplastic syndromes vary widely in their clinical manifestation, certainly hypercalcemia is seen commonly and would check an ionized calcium. If we do not achieve answers, I would consider repeating a scan with oral and IV contrast but would consider panendoscopy first
[2019-12-26 15:47] LABS: C-Reactive Protein 26.9 mg/L (0-4)
[2019-12-26 15:50] LABS: Erythrocyte Sedimentation Rate 22 mm/hr (0-30)
[2019-12-26 16:00] VITALS: BP 167/89; PULSE 85; RESP 18; TEMP 36.8; O2SAT 99
--- NOTE | 2019-12-26 16:22 | PC.NURSE ---
ALERT AND ORIENTED X4. GOAL DIRECTED BEHAVIOR, EXHIBITS S/S OF ANXIETY AT TIMES. PT AMBULATES INDEPENDENTLY AROUND ROOM AND TO BATHROOM. PT HAS HAD TWO EPISODES OF VOMITING AND THREE BM. PT REPORTS BM IS MORE SOLID TODAY THAN PREVIOUSLY. ABDOMEN IS SOFT AND NON-TENDER WITH ACTIVE BS IN ALL QUADS. PT HAS REFUSED MEDICATION FOR GI SYMPTOMS. POOR PO INTAKE, ICE CHIPS ONLY. LUNGS REMAIN CTA. VSS. SAFETY MEASURES IN PLACE, WILL CONTINUE TO MONITOR
--- NOTE | 2019-12-26 19:13 | PC.NURSE ---
report given to devonte
[2019-12-26 20:40] VITALS: BP 170/94; PULSE 79; RESP 18; TEMP 37.2; O2SAT 100
[2019-12-26 22:22] VITALS: BP 150/98
[2019-12-27] VITALS (9 sets, daily range): BP systolic 143–178; BP diastolic 83–98; PULSE 76–85; RESP 17–18; TEMP 36.6–36.9; O2SAT 96–100; BMI 26.5
--- NOTE | 2019-12-27 02:22 | PC.NURSE ---
Pt is awake at this time, c/o bilateral leg aching. Toradol administered as ordered. Pt states that standing/walking does help leg pain. Lung sounds clear throughout. Bowel sounds active all quadrants. Denies nausea at this time. Son at bedside.
--- NOTE | 2019-12-27 04:01 | PC.NURSE ---
Pt awake, flushed, hot flashes, jitters . pt states she feels likek she does when given IV Reglan. IV Regland has not been ordered or administered. Pt states she has not had her home meds of estradiol and duloxetine for one week. Pt states she does not want an intervention at this time other than for staff to know what is going on, states she will try to rest with lights turned down.
--- NOTE | 2019-12-27 05:00 | PC.NURSE ---
Approximately 150ml emesis noted, pale green and watery in nature. Phenergan administered.
[2019-12-27 06:09] LABS: Basophils % 0.4 % (0.1-2.0); Eosinophils % 0.6 % (0.1-12.0); Hematocrit 36.1 % (37.0-47.0); Lymphocytes # 1.5 K/mm3 (0.7-4.5); Lymphocytes % 19.9 % (10-50); Mean Corpuscular HGB Conc 33.4 g/dL (31.8-35.4); Mean Corpuscular Hemoglobin 27.5 pg (27.0-31.2); Mean Corpuscular Volume 82.5 fl (81-99); Mean Platelet Volume 7.4 fl (7.4-10.4); Monocytes # 0.9 K/mm3 (0.1-1.0); Monocytes % 11.3 % (1.7-9.3); Neutrophils # 5.2 K/mm3 (1.8-7.8); Neutrophils % 67.7 % (37.0-80.0); Platelet Count 414 K/mm3 (142-424); Red Blood Count 4.37 M/mm3 (4.20-5.40); Red Cell Distribution Width 14.6 % (11.5-17.5); White Blood Count 7.6 K/mm3 (4.8-10.8)
[2019-12-27 06:39] LABS: Chloride 103 mmol/L (98-107); Sodium 138 mmol/L (136-145)
[2019-12-27 06:42] LABS: Blood Urea Nitrogen 6 mg/dl (7-17); Carbon Dioxide 26 mmol/L (22.0-30.0); Creatinine Clearance Estimated 102 mL/min (50-200); Estimated Glomerular Filt Rate 87 ml/min (>60); GFR (African American) 105 ML/MIN (>60); Glucose 142 mg/dl (74-100)
--- NOTE | 2019-12-27 08:17 | PC.NURSE ---
PATIENT HAVING NAUSEA THIS AM WITH NO EMESIS NOT TIME FOR PRN MEDICATION YET. PATIENT C/O PAIN TO BLE PRN TORADOL ADMIN PER MAY. PATIENT UNABLE TO EAT BREAKFAST AT THIS TIME. PATIENT AMBULATING SELF TO AND FROM RESTROOM NO C/O PAINFUL, BURNING URINATION DOES C/O LOOSE STOOL. FAMILY AT BEDSIDE WITH PATIENT. SAFETY MEASURES IN PLACE NO ISSUES AT THIS TIME WILL CONTINUE TO MONITOR.
--- NOTE | 2019-12-27 08:34 | HMH.ACPN2 ---
Internal Medicine - PN: Subj *Date: 12/27/19 *Time: 08:45 Interval history: She did not rest well last night. Blood pressure was elevated and she felt flushed and jittery all over. She thinks it might be from the steroids. She refused her dose this morning. Lisinopril was restarted last night but blood pressure is still elevated this morning. She has not been on her maintenance medications of duloxetine and gabapentin since admission which may be a factor as well. She only had one episode of vomiting during the night. Stools seem to have a little more formed. Exam Vital signs and Labs for Last 24 Hours: Temp Pulse Resp BP Pulse Ox 98.3 F 85 17 162/98 H 100 12/27/19 07:54 12/27/19 07:54 12/27/19 07:54 12/27/19 07:54 12/27/19 07:54 Laboratory Results - last 24 hr 12/26/19 15:25: ESR 22 12/26/19 15:25: C-Reactive Protein 26.9 H 12/27/19 05:45: WBC 7.6 D, RBC 4.37, Hgb 12.0 L, Hct 36.1 L, MCV 82.5, MCH 27.5, MCHC 33.4, RDW 14.6, Plt Count 414 D, MPV 7.4, Neut % (Auto) 67.7, Lymph % (Auto) 19.9, Gordon % (Auto) 11.3 H, Eos % (Auto) 0.6, Baso % (Auto) 0.4, Neut # (Auto) 5.2, Lymph # (Auto) 1.5, Gordon # (Auto) 0.9, Eos # (Auto) 0.0, Baso # (Auto) 0.0 12/27/19 05:45: Sodium 138, Potassium 4.0, Chloride 103, Carbon Dioxide 26, Anion Gap 13.0, BUN 6 L, Creatinine 0.70, Estimated Creat Clear 102, Estimated GFR 87, Est GFR ( Amer) 105, Glucose 142 H, Calcium 9.0 D I & O for Last 24 hours: Intake & Output 12/24/19 12/25/19 12/26/19 12/27/19 11:59 11:59 11:59 11:59 Intake Total 1470 / 1470 3438 / 3438 2370 / 2370 2595 / 2595 Output Total 200 / 200 2049 / 2049 2900 / 2900 2401 / 2401 Balance 1270 / 1270 1388 / 1388 -530 / -530 194 / 194 Weight 163 lb 1.991 oz 167 lb 3 oz 162 lb 4 oz 159 lb 6 oz Narrative: She is alert and oriented. Appears in no distress. A bit anxious. Lungs are clear. Abdomen soft and nondistended. Mild epigastric tenderness. Assessment and Plan (1) Vomiting Current visit: Yes Status: Acute Qualifiers: Vomiting type: unspecified Vomiting Intractability: unspecified Nausea presence: unspecified Qualified Code(s): R11.10 - Vomiting, unspecified Category: Medical Code(s): R11.10 - Vomiting, unspecified (2) Abdominal pain Current visit: No Status: Acute Category: Medical Code(s): R10.9 - Unspecified abdominal pain (3) Anemia Current visit: No Status: Acute Category: Medical Code(s): D64.9 - Anemia, unspecified (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 Current visit: No Status: Chronic Category: Medical Code(s): M47.816 - Spondylosis without myelopathy or radiculopathy, lumbar region (5) Hyperlipidemia Current visit: No Status: Chronic Category: Medical Code(s): E78.5 - Hyperlipidemia, unspecified (6) Hypertension Current visit: No Status: Chronic Category: Medical Code(s): I10 - Essential (primary) hypertension (7) Hypothyroid Current visit: No Status: Chronic Category: Medical Code(s): E03.9 - Hypothyroidism, unspecified (8) Metastatic renal cell carcinoma Current visit: No Status: Chronic Qualifiers: Laterality: unspecified laterality Qualified Code(s): C64.9 - Malignant neoplasm of unspecified kidney, except renal pelvis Category: Medical Code(s): C64.9 - Malignant neoplasm of unspecified kidney, except renal pelvis (9) Hypokalemia Current visit: Yes Status: Acute Category: Medical Code(s): E87.6 - Hypokalemia - Assessment and plan all Dx Assessment and Plan for all problems:: Her symptoms could be a side effect of the steroids. I explained the importance of continuing the steroids if she has some type of atypical paraneoplastic syndrome causing her GI symptoms. Plan to restart her gabapentin and duloxetine and add PRN lorazepam for anxiety. Closely monitor blood pressure now that she is back on her lisinopril. Advance to full liquid diet. Activity as t
--- NOTE | 2019-12-27 08:35 | PC.NURSE ---
MD MIRELES ROUNDING N/O RECEIVED
--- NOTE | 2019-12-27 10:54 | PC.NURSE ---
MD MIRELES CALLED REGARDING PHARMACYS CONCERNS OF NOT RESUMING METOPROLOL. N/O FOR METOPROLOL TARTRATE 25MG BID.
--- NOTE | 2019-12-27 17:47 | PC.NURSE ---
PATIENT LYING IN BED ON RIGHT SIDE ASLEEP EASILY AROUSES TO VERBAL STIMULI. PATIENT DENIES PAIN AT THIS TIME. DENIES NAUSEA. TOLERATED DINNER FAIR. PATIENT ON RA-LUNGS CTA NO C/O SOA/COUGH. NO EDEMA. VOIDING PER RESTROOM INDEPENDENTLY NO C/O PAINFUL/BURNING URINATION. PATIENT STILL HAVING LOOSE STOOL BUT MORE FORMED THAN THIS MORNING. SKIN INTACT. SAFETY MEASURES INTACT. NO ISSUES AT THIS TIME. SON AT BEDSIDE.
[2019-12-28] VITALS (8 sets, daily range): BP systolic 152–179; BP diastolic 78–100; PULSE 68–86; RESP 16–18; TEMP 36.4–37; O2SAT 96–98; BMI 26.4
--- NOTE | 2019-12-28 03:08 | PC.NURSE ---
PT HAS RESTED FAIRLY WELL THIS SHIFT. SON IN RECLINER SLEEPING. PT REPORTED THAT SHE HAD ONE EPISODE OF EMESIS IMMEDIATELY FOLLOWING 2100 MEDICATIONS. PT REFUSED PRN MEDS BUT LATER REQUESTED PHENERGAN, ADMINISTER PER MAY. PT ALSO C/O BLE PAIN, TORADOL ADMINISTERED PER MAY. PT DISPLAYED S/S OF ANXIETY WHILE ADMINISTERING TORADOL, OFFERED ATIVAN, PT ACCEPTED AND MEDICATION WAS ADMINISTERED PER MAY. ABDOMEN IS SOFT, FLAT, AND NON-TENDER WITH ACTIVE BS IN ALL QUADS. LUNGS CTA. O2 SAT HIGH 90'S ON RA. PT VOIDS CLEAR YELLOW URINE PER TOILET WITHOUT PROBLEM. PT DENIES DIARRHEA. IV IS SECURE, PATENT, AND INFUSINF IVF. VSS. NO DISTRESS NOTED. SAFETY MEASURES IN PLACE INCLUDING BED ALARM. FALL PREVENTION EDUCATION PROVIDED. WILL CONTINUE TO MONITOR
--- NOTE | 2019-12-28 08:37 | P.PN_ITS ---
Internal Medicine - PN: Subj *Date: 12/28/19 *Time: 09:17 Interval history: Rested better last night. No new complaints. Still with nausea and occasional vomiting but tolerated full liquid diet this AM. BP still elevated. Exam Vital signs and Labs for Last 24 Hours: Temp Pulse Resp BP Pulse Ox 97.5 F L 86 17 179/100 H 98 12/28/19 07:36 12/28/19 07:36 12/28/19 07:36 12/28/19 07:36 12/28/19 07:36 I & O for Last 24 hours: Intake & Output 12/25/19 12/26/19 12/27/19 12/28/19 11:59 11:59 11:59 11:59 Intake Total 3438 / 3438 2370 / 2370 2595 / 2595 1990 Output Total 2049 / 2049 2900 / 2900 2401 / 2401 1650 / 1650 Balance 1388 / 1388 -530 / -530 194 / 194 341 / 341 Weight 167 lb 3 oz 162 lb 4 oz 159 lb 6 oz 158 lb 5 oz Microbiology Reports for the Last 24 Hours: Microbiology 12/22/19 20:10 Blood Blood Culture - Final NO GROWTH AFTER 5 DAYS 12/22/19 20:10 Blood Blood Culture - Final NO GROWTH AFTER 5 DAYS Narrative: She is alert and in no distress. Lungs clear to auscultation. Heart is regular with ectopy. Abdomen is soft and nondistended. Bowel sounds are diminished. Mild epigastric tenderness. Assessment and Plan (1) Vomiting Current visit: Yes Status: Acute Qualifiers: Vomiting type: unspecified Vomiting Intractability: unspecified Nausea presence: unspecified Qualified Code(s): R11.10 - Vomiting, unspecified Category: Medical Code(s): R11.10 - Vomiting, unspecified (2) Abdominal pain Current visit: No Status: Acute Category: Medical Code(s): R10.9 - Unspecified abdominal pain (3) Anemia Current visit: No Status: Acute Category: Medical Code(s): D64.9 - Anemia, unspecified (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 Current visit: No Status: Chronic Category: Medical Code(s): M47.816 - Spondylosis without myelopathy or radiculopathy, lumbar region (5) Hyperlipidemia Current visit: No Status: Chronic Category: Medical Code(s): E78.5 - Hyperlipidemia, unspecified (6) Hypertension Current visit: No Status: Chronic Category: Medical Code(s): I10 - Essential (primary) hypertension (7) Hypothyroid Current visit: No Status: Chronic Category: Medical Code(s): E03.9 - Hypothyroidism, unspecified (8) Metastatic renal cell carcinoma Current visit: No Status: Chronic Qualifiers: Laterality: unspecified laterality Qualified Code(s): C64.9 - Malignant ne oplasm of unspecified kidney, except renal pelvis Category: Medical Code(s): C64.9 - Malignant neoplasm of unspecified kidney, except renal pelvis (9) Hypokalemia Current visit: Yes Status: Acute Category: Medical Code(s): E87.6 - Hypokalemia - Assessment and plan all Dx Assessment and Plan for all problems:: Continue per orders. Increase Metoprolol for better BP control. NPO after midnight tonight for possible panendoscopy tomorrow.
--- NOTE | 2019-12-28 11:28 | PC.NURSE ---
recheck of blood pressure from this morning. nurse aware.
--- NOTE | 2019-12-28 20:50 | PC.NURSE ---
Pt alert and oriented and able to make needs known. Have given prn phenegran, zofran and toradol this shift per mar. CB in reach. Have been nauseated and emesis x 2 this shift. No acute changes. VSS.
[2019-12-29] VITALS (14 sets, daily range): BP systolic 108–170; BP diastolic 61–98; PULSE 63–80; RESP 16–20; TEMP 36.1–37.2; O2SAT 95–99; BMI 26.6
--- NOTE | 2019-12-29 04:45 | PC.NURSE ---
ALERT AND ORIENTED X4. PT AMBULATES INDEPENDENTLY IN ROOM AND TO BATHROOM WITHOUT PROBLEM. PT HAS C/O NAUSEA AND ONE EPISODE OF VOMITING. NO REPORTED BM THIS SHIFT. NAUSEA AND ANXIETY MEDICATION ADMINISTERED ONCE PER MAR. PT HAS RESTED WELL THROUGHOUT THE NIGHT. DENIES PAIN. LUNGS CTA. ABDOMEN IS SOFT AND NON-TENDER WITH ACTIVE BS IN ALL QUADS. PO INTAKE POOR BUT HAS IMPROVED FROM PREVIOUS DAYS. VSS. NO DISTRESS NOTED. SAFETY MEASURES IN PLACE. WILL CONTINUE TO MONITOR
--- NOTE | 2019-12-29 08:24 | HMH.ACPN2 ---
<Narda Johnson - Last Filed: 12/29/19 08:24> Internal Medicine - PN: Subj *Date: 12/29/19 *Time: 08:24 Interval history: Patient states she did sleep some during the night. She states she is not any better. She retained some pudding yesterday but continues to have nausea and vomiting. She has had multiple diarrhea stools. She does not have any pain anyplace. She is voiding without difficulty. She ambulates to the bathroom without problems Exam Vital signs and Labs for Last 24 Hours: Temp Pulse Resp BP Pulse Ox 98.2 F 74 18 170/89 H 96 12/29/19 04:00 12/29/19 04:00 12/29/19 04:00 12/29/19 04:00 12/29/19 04:00 I & O for Last 24 hours: Intake & Output 12/26/19 12/27/19 12/28/19 12/29/19 11:59 11:59 11:59 11:59 Intake Total 2370 / 2370 2595 / 2595 1990 / 1990 1560 / 1560 Output Total 2900 / 2900 2401 / 2401 1650 / 1650 2350 / 2350 Balance -530 / -530 194 / 194 341 / 341 -790 / -790 Weight 162 lb 4 oz 159 lb 6 oz 158 lb 5 oz 160 lb 3 oz - Constitutional no acute distress - *Routine Respiratory Exam Present: CTA bilaterally (Anteriorly and posteriorly) - *Routine Cardiovascular Exam Present: RRR - *Routine Abdominal Exam Present: soft, normoactive bowel sounds. Absent: tenderness, distended - *Routine Extremities Exam Absent: edema, calf tenderness - *Routine Neurological Exam Present: alert, oriented X3 Assessment and Plan (1) Vomiting Current visit: Yes Status: Acute Qualifiers: Vomiting type: unspecified Vomiting Intractability: unspecified Nausea presence: unspecified Qualified Code(s): R11.10 - Vomiting, unspecified Category: Medical Code(s): R11.10 - Vomiting, unspecified (2) Abdominal pain Current visit: No Status: Acute Category: Medical Code(s): R10.9 - Unspecified abdominal pain (3) Anemia Current visit: No Status: Acute Category: Medical Code(s): D64.9 - Anemia, unspecified (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 Current visit: No Status: Chronic Category: Medical Code(s): M47.816 - Spondylosis without myelopathy or radiculopathy, lumbar region (5) Hyperlipidemia Current visit: No Status: Chronic Category: Medical Code(s): E78.5 - Hyperlipidemia, unspecified (6) Hypertension Current visit: No Status: Chronic Category: Medical Code(s): I10 - Essential (primary) hypertension (7) Hypothyroid Current visit: No Status: Chronic Category: Medical Code(s): E03.9 - Hypothyroidism, unspecified (8) Metastatic renal cell carcinoma Current visit: No Status: Chronic Qualifiers: Laterality: unspecified laterality Qualified Code(s): C64.9 - Malignant neoplasm of unspecified kidney, except renal pelvis Category: Medical Code(s): C64.9 - Malignant neoplasm of unspecified kidney, except renal pelvis (9) Hypokalemia Current visit: Yes Status: Acute Category: Medical Code(s): E87.6 - Hypokalemia (10) Depression with anxiety Current visit: Yes Status: Acute Category: Medical Code(s): F41.8 - Other specified anxiety disorders - Assessment and plan all Dx Assessment and Plan for all problems:: Continue current regime. Patient be followed by gastroenterology today. She remains n.p.o. for possible procedure. <Mert Womack - Last Filed: 12/29/19 16:49> Internal Medicine - PN: Subj *Date: 12/29/19 *Time: 16:48 Exam Vital signs and Labs for Last 24 Hours: Temp Pulse Resp BP Pulse Ox 99.0 F 80 16 154/98 H 98 12/29/19 08:00 12/29/19 08:00 12/29/19 08:00 12/29/19 08:00 12/29/19 08:00 I & O for Last 24 hours: Intake & Output 12/27/19 12/28/19 12/29/19 12/30/19 11:59 11:59 11:59 11:59 Intake Total 2595 / 2595 1990 1560 / 1560 0 / 0 Output Total 2401 / 2401 1650 / 1650 2350 / 2350 Balance 194 / 194 341 / 341 -790 / -790 0 / 0 Weight 159 lb 6 oz 158 lb 5 oz 160 lb 3 oz Assessment and Plan (1) Vomit
--- NOTE | 2019-12-29 12:19 | HMH.ACPN ---
Internal Medicine - PN: Subj *Date: 12/29/19 *Time: 12:19 Exam Vital signs and Labs for Last 24 Hours: Temp Pulse Resp BP Pulse Ox 99.0 F 80 16 154/98 H 98 12/29/19 08:00 12/29/19 08:00 12/29/19 08:00 12/29/19 08:00 12/29/19 08:00 I & O for Last 24 hours: Intake & Output 12/26/19 12/27/19 12/28/19 12/29/19 23:59 23:59 23:59 23:59 Intake Total 2850 / 2850 3106 / 3106 2560 / 2560 0 / 0 Output Total 2650 / 3350 2451 / 2451 1900 / 2400 950 / 950 Balance 200 / -500 655 / 655 660 / 160 -950 / -950 Weight 73.595 kg 72.291 kg 71.809 kg 72.66 kg Assessment and Plan (1) Vomiting Current visit: Yes Status: Acute Qualifiers: Vomiting type: unspecified Vomiting Intractability: unspecified Nausea presence: unspecified Qualified Code(s): R11.10 - Vomiting, unspecified Category: Medical Code(s): R11.10 - Vomiting, unspecified (2) Abdominal pain Current visit: No Status: Acute Category: Medical Code(s): R10.9 - Unspecified abdominal pain (3) Anemia Current visit: No Status: Acute Category: Medical Code(s): D64.9 - Anemia, unspecified (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 Current visit: No Status: Chronic Category: Medical Code(s): M47.816 - Spondylosis without myelopathy or radiculopathy, lumbar region (5) Hyperlipidemia Current visit: No Status: Chronic Category: Medical Code(s): E78.5 - Hyperlipidemia, unspecified (6) Hypertension Current visit: No Status: Chronic Category: Medical Code(s): I10 - Essential (primary) hypertension (7) Hypothyroid Current visit: No Status: Chronic Category: Medical Code(s): E03.9 - Hypothyroidism, unspecified (8) Metastatic renal cell carcinoma Current visit: No Status: Chronic Qualifiers: Laterality: unspecified laterality Qualified Code(s): C64.9 - Malignant neoplasm of unspecified kidney, except renal pelvis Category: Medical Code(s): C64.9 - Malignant neoplasm of unspecified kidney, except renal pelvis (9) Hypokalemia Current visit: Yes Status: Acute Category: Medical Code(s): E87.6 - Hypokalemia (10) Depression with anxiety Current visit: Yes Status: Acute Category: Medical Code(s): F41.8 - Other specified anxiety disorders The patient's infection will respond to the chosen ABx?: No (BLOOD CULTURE NEGATIVE, NO SOURCE OF INFECTION) Is the patient receiving the right drug, dose, and route?: No Could a more targeted ABx be ordered?: No (NO MORE ABX PER DR MERCEDES)
--- NOTE | 2019-12-29 16:19 | P.PN_ITS ---
[facility] Anesthesia Checklist - Structural Data Admitted From: Inpatient Planned Operative Procedure/s: egd/colonoscopy Consent for Planned Operative Procedure(s) Verified: Yes - Additional verifications Anesthesia Reactions: No Hx Blood Transfusions: Yes Blood Transfusion Reaction: Yes - Airway Assessment C-Spine Mobility Assessed: Yes TMJ Mobility Assessed: Yes Dentition: Good Dentition - Neurological Assessment Level of Consciousness: Awake, Alert, Appropriate - Anesthesia Plan Anesthesia Risk discussed: Yes Anesthesia Plan: Verified ASA Class: II Anesthesia Type: MAC [facility] History I have reviewed the patient's past medical history: Yes Medical History: Reports:: Cancer, Congestive Heart Failure, Hyperlipidemia, Hypertension Denies:: Coronary Artery Disease, Diabetes Mellitus Type 1, Diabetes Mellitus Type 2, Internal Pacemaker, MRSA, Seizures *Have you ever received a pneumonia vaccine?: Yes *Have you received a flu vaccine this season?: No Other Medical History: Reports: Anemia, Blood Transfusion Reaction, Chemotherapy, Hormone Therapy, Hypothyroidism, Radiation Therapy, Thyroid Disease Anesthesia experience/problems:: none Laterality Cases: Left: Breast Biopsy, Right: Carpal Tunnel Release Other Surgeries: Yes: Cancer Surgery (renal biopsy, lt axillary node bx), C- section, Hysterectomy-Total, Other (renal biopsy; lt axillary node biopsy). No: Pacemaker Amputation: No Fractures: No - *Social History Last grade of school completed: Advanced degree Smoking Status: Former smoker Tobacco Type: cigarettes # Packs/Day (cigarettes): 1 #Yrs smoked (if former smoker): 20 Alcohol Intake: never Alcohol Intake Frequency:: other Substance Use Type: denies use *Occupational Status:: disabled Housing: house Household Members: spouse, family *Travel in the last 8 weeks: None Family Hx:: Cancer, Coronary Artery Disease, Heart Attack, Hyperlipidemia, Hypertension, Stroke
--- NOTE | 2019-12-29 16:29 | HMH.PROC ---
[facility] Procedure Note Procedure Note:: Upper Endoscopy Procedure Report: Esophagogastroduodenoscopy with cold biopsies Endoscopost: Mumtaz Le II, MD Referring Physician: Guillaume Toro MD Date of Procedure: December 29, 2019 Equipment: Olympus GIF 180 standard upper endoscope Sedation: MAC sedation Indications: Mrs. Carter is a 54-year-old female who is here for intractable nausea, vomiting and diarrhea. She does have a history of renal cell carcinoma with metastasis and has been on immunotherapy. She also has had a morphine pump along with oxycodone and fentanyl patch. She presented to [facility] nearly 12-14 days ago with some epigastric abdominal pain, nausea and vomiting which has been going on for 2 weeks. She has had the diarrhea now for 6 days. This is new. She reports no gassiness or bloating. She did have a CT scan of the abdomen showing a 6 mm appendix with some possible stranding. The CT scan of the abdomen also showed mild thickening of the descending and sigmoid colon (possibly related to nondistention). The patient has been on Zofran and Phenergan with no relief. She does have a history of extrapyramidal side effects with the prior use of Reglan/metoclopramide. The patient reports no bloating, gassiness, belching. She has no appetite. She reports no hematochezia or melena. Her PCR gastrointestinal panel was negative. Her father had colon cancer. She has had no prior colonoscopy. The patient was given a dose of dexamethasone. I did see her on Sunday and recommended corticosteroids and felt this may be paraneoplastic process. Her bowel movements are green and bilious today but slightly more formed. She cannot keep food down. Procedure: Prior to the procedure, a history and physical exam was performed, and patient's medications and allergies were reviewed. The risks, benefits and alternatives of the sedation and procedure were discussed with the patient. All questions were answered and informed consent was obtained. The patient was brought to the procedure room. Patient identification and proposed procedure were verified by the physician and the nurse. The patient was placed in a left lateral decubitus position and the scope was passed under direct vision. Throughout the procedure, the patient's blood pressure, pulse, and oxygen saturations were monitored continuously. The upper GI endoscopy was accomplished without difficulty. The patient tolerated the procedure well. Findings: The scope was passed directly into the upper esophagus and advanced to the third and fourth portion of the duodenum. The post bulbar duodenum and duodenal bulb were normal with normal mucosa and conniventes. Cold biopsies were taken from the post bulbar duodenum. The scope was withdrawn through a normal duodenal bulb and pylorus into the stomach. There was marked bile reflux with moderate bilious liquid within the body and fundus of the stomach that was suction. There was marked hemorrhagic gastritis of the body and fundus of the stomach and cold biopsies were obtained. Upon retroflexion there was no hiatal hernia. The scope was then withdrawn into the esophagus. There was no evidence of reflux esophagitis or Arellano's. The remainder of the esophageal mucosa was normal. Impression: 1. Hemorrhagic/erosive gastritis (moderate) Plan: I do feel that this is related to the bile reflux and caustic chemical gastritis. I will follow-up the biopsies. I would continue PPI therapy and add sucralfate. I will proceed with colonoscopy. If this persists, I would consider a serial repeat CT scan of the chest, abdomen and pelvis with IV and oral contrast.
--- NOTE | 2019-12-29 16:48 | HMH.PROC ---
[facility] Procedure Note Procedure Note:: Colonoscopy Procedure Report: Colonoscopy with cold biopsies Endoscopist: Mumtaz Le II, MD Referring physician: Guillaume Toro MD Date of Procedure: December 29, 2019 Equipment: Olympus 180 variable stiffness pediatric colonoscope Sedation: MAC sedation Indication: Mrs. Carter is a 54-year-old female who is here for intractable nausea, vomiting and diarrhea. She does have a history of renal cell carcinoma with metastasis and has been on immunotherapy. She also has had a morphine pump along with oxycodone and fentanyl patch. She presented to [facility] nearly 12-14 days ago with some epigastric abdominal pain, nausea and vomiting which has been going on for 2 weeks. She has had the diarrhea now for 6 days. This is new. She reports no gassiness or bloating. She did have a CT scan of the abdomen showing a 6 mm appendix with some possible stranding. The CT scan of the abdomen also showed mild thickening of the descending and sigmoid colon (possibly related to nondistention). The patient has been on Zofran and Phenergan with no relief. She does have a history of extrapyramidal side effects with the prior use of Reglan/metoclopramide. The patient reports no bloating, gassiness, belching. She has no appetite. She reports no hematochezia or melena. Her PCR gastrointestinal panel was negative. Her father had colon cancer. She has had no prior colonoscopy. The patient was given a dose of dexamethasone. I did see her on Sunday and recommended corticosteroids and felt this may be paraneoplastic process. Her bowel movements are green and bilious today but slightly more formed. She cannot keep food down. Procedure: Prior to the procedure, a history and physical exam was performed, and patient's medications and allergies were reviewed. The risks, benefits and alternatives of the sedation and procedure were discussed with the patient. All questions were answered and informed consent was obtained. The patient was brought to the procedure room. Patient identification and proposed procedure were verified by the physician and the nurse. The patient was placed in a left lateral decubitus position and the scope was passed under direct vision. Throughout the procedure, the patient's blood pressure, pulse, and oxygen saturations were monitored continuously. The colonoscopy was accomplished without difficulty. The patient tolerated the procedure well. Findings: On digital rectal examination there was normal rectal tone. There were no external hemorrhoids. The colonoscope was introduced through the anal canal to the rectum and advanced to the cecum. The ileocecal valve and appendiceal orifice were identified. The scope was advanced a short distance into the ileum which appeared grossly normal. The scope was then withdrawn into the colon. The cecum, ascending and transverse colon were relatively normal with normal vascular pattern. The preparation was fairly good with some liquid bilious stool which was easily cleared. Within the descending, sigmoid and rectum there was loss of vascular pattern with some mucosal erythema and mild granularity. Biopsies were obtained to rule out mild colitis of the left colon. Upon retroflexion within the rectum there were grade 1 internal hemorrhoids. Impression: 1. Mild left-sided colitis?rule out self-limited colitis Plan: The patient does appear to have gastroenteritis/enterocolitis but her PCR microbial panel was negative. I would consider adding Enteragam to her regimen. I would continue corticosteroids for now. I do feel that repeating stool testing and contrast imaging may be valuable as well. I will discuss findings with patient and family and consider treatment options.
--- NOTE | 2019-12-29 19:13 | PC.NURSE ---
report given to andrew
--- NOTE | 2019-12-29 19:38 | PC.NURSE ---
PT IS RESTING IN BED WITH FAMILY AT BEDSIDE. ALERT AND ORIENTED X4. PT TOLERATED PROCEDURE WELL. CALLED AND STATED PT COULD HAVE A LOW RESIDUE DIET. CARAFATE 1 GM PO WITH MEALS. PT HAS AMBULATED TO THE BATHROOM SINCE ARRIVING BACK TO THE FLOOR. PT HAS NOT HAD ANYMORE BOWEL MOVEMENTS SINCE PROCEDURE. LUNG SOUNDS CLEAR. BOWEL SOUNDS NORMAL. SKIN W/D/I. VSS. WILL CONTINUE TO MONITOR.
[2019-12-30 00:27] VITALS: BP 141/84; PULSE 71; RESP 22; TEMP 36.7; O2SAT 93
--- NOTE | 2019-12-30 03:31 | PC.NURSE ---
Pt c/o Nausea early in shift. Was administered zofran. Shortly after 2300, pt c/o again of nausea and requested phenergan. Medication administered. No additional complaints thus far. Pt has rested better since. Has ambulated to BR. No BM this shift. BS active. Lungs are CTA. No other concerns at this time. Will continue to monitor.
[2019-12-30 04:12] VITALS: BP 142/92; PULSE 72; RESP 18; TEMP 36.7; O2SAT 95
[2019-12-30 05:10] VITALS: BMI 25.9
[2019-12-30 06:22] LABS: Basophils # 0.1 K/mm3 (0-0.2); Basophils % 0.7 % (0.1-2.0); Eosinophils # 0.1 K/mm3 (0.0-0.4); Eosinophils % 1.5 % (0.1-12.0); Hematocrit 40.1 % (37.0-47.0); Hemoglobin 12.4 g/dL (12.2-16.2); Lymphocytes # 1.7 K/mm3 (0.7-4.5); Mean Corpuscular Hemoglobin 26.4 pg (27.0-31.2); Mean Corpuscular Volume 85.3 fl (81-99); Mean Platelet Volume 7.1 fl (7.4-10.4); Monocytes # 0.9 K/mm3 (0.1-1.0); Monocytes % 11.1 % (1.7-9.3); Neutrophils # 5.4 K/mm3 (1.8-7.8); Neutrophils % 65.7 % (37.0-80.0); Platelet Count 407 K/mm3 (142-424); Red Cell Distribution Width 14.2 % (11.5-17.5); White Blood Count 8.3 K/mm3 (4.8-10.8)
[2019-12-30 06:28] LABS: Chloride 102 mmol/L (98-107); Sodium 137 mmol/L (136-145)
[2019-12-30 06:29] LABS: Potassium 4.5 mmoL/L (3.5-5.1)
[2019-12-30 06:32] LABS: Anion Gap 9.5 mEq/L (5-15); Blood Urea Nitrogen 9 mg/dl (7-17); Calcium 8.8 mg/dl (8.4-10.2); Carbon Dioxide 30 mmol/L (22.0-30.0); Creatinine Clearance Estimated 78 mL/min (50-200); Estimated Glomerular Filt Rate 65 ml/min (>60); GFR (African American) 78 ML/MIN (>60); Glucose 129 mg/dl (74-100)
[2019-12-30 07:31] VITALS: BP 121/87; PULSE 75; RESP 20; O2SAT 98
--- NOTE | 2019-12-30 07:48 | HMH.ACPN2 ---
<Narda Johnson - Last Filed: 12/30/19 07:48> Internal Medicine - PN: Subj *Date: 12/30/19 *Time: 07:48 Interval history: Patient is definitely better this morning. She still has some nausea requiring medication but is able to retained food. She has had no stools since her procedures, EGD and colonoscopy yesterday p.m. She did sleep last night. She is voiding QS. She denies pain. Labs this morning reveal normal electrolytes and renal function. CBC with a hemoglobin of 12.4 and hematocrit of 40.1 and white blood cell count of 8300.She had an EGD yesterday which revealed hemorrhagic/erosive gastritis (moderate) And was started on sucralfate. Colonoscopy revealed a mild left-sided colitis. Additional stool studies were ordered With consideration of adding Enteragam Exam Vital signs and Labs for Last 24 Hours: Temp Pulse Resp BP Pulse Ox 98.0 F 75 20 121/87 98 12/30/19 04:12 12/30/19 07:31 12/30/19 07:31 12/30/19 07:31 12/30/19 07:31 Laboratory Results - last 24 hr 12/30/19 05:48: WBC 8.3, RBC 4.70, Hgb 12.4, Hct 40.1, MCV 85.3, MCH 26.4 L, MCHC 31.0 L, RDW 14.2, Plt Count 407, MPV 7.1 L, Neut % (Auto) 65.7, Lymph % (Auto) 21.0, [place] % (Auto) 11.1 H, Eos % (Auto) 1.5, Baso % (Auto) 0.7, Neut # (Auto) 5.4, Lymph # (Auto) 1.7, [place] # (Auto) 0.9, Eos # (Auto) 0.1, Baso # (Auto) 0.1 12/30/19 05:48: Sodium 137, Potassium 4.5, Chloride 102, Carbon Dioxide 30, Anion Gap 9.5, BUN 9, Creatinine 0.90, Estimated Creat Clear 78, Estimated GFR 65, Est GFR ( Amer) 78, Glucose 129 H, Calcium 8.8 I & O for Last 24 hours: Intake & Output 12/27/19 12/28/19 12/29/19 12/30/19 11:59 11:59 11:59 11:59 Intake Total 2595 / 2595 1990 1560 / 1560 0 / 0 Output Total 2401 / 2401 1650 / 1650 2350 / 2350 1750 / 1750 Balance 194 / 194 341 / 341 -790 / -790 -1750 / -1750 Weight 159 lb 6 oz 158 lb 5 oz 160 lb 3 oz 155 lb 8 oz - Constitutional no acute distress Comments: Sitting up in bed and eating breakfast. Appears comfortable - *Routine Respiratory Exam Present: CTA bilaterally (Anteriorly and posteriorly) - *Routine Cardiovascular Exam Present: RRR - *Routine Abdominal Exam Present: soft, normoactive bowel sounds. Absent: tenderness (No epigastric tenderness), guarding - *Routine Extremities Exam Absent: edema, calf tenderness - *Routine Neurological Exam Present: alert, oriented X3 Assessment and Plan (1) Vomiting Current visit: Yes Status: Acute Qualifiers: Vomiting type: unspecified Vomiting Intractability: unspecified Nausea presence: unspecified Qualified Code(s): R11.10 - Vomiting, unspecified Category: Medical Code(s): R11.10 - Vomiting, unspecified (2) Abdominal pain Current visit: No Status: Acute Category: Medical Code(s): R10.9 - Unspecified abdominal pain (3) Anemia Current visit: No Status: Acute Category: Medical Code(s): D64.9 - Anemia, unspecified (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 Current visit: No Status: Chronic Category: Medical Code(s): M47.816 - Spondylosis without myelopathy or radiculopathy, lumbar region (5) Hyperlipidemia Current visit: No Status: Chronic Category: Medical Code(s): E78.5 - Hyperlipidemia, unspecified (6) Hypertension Current visit: No Status: Chronic Category: Medical Code(s): I10 - Essential (primary) hypertension (7) Hypothyroid Current visit: No Status: Chronic Category: Medical Code(s): E03.9 - Hypothyroidism, unspecified (8) Metastatic renal cell carcinoma Current visit: No Status: Chronic Qualifiers: Laterality: unspecified laterality Qualified Code(s): C64.9 - Malignant neoplasm of unspecified kidney, except renal pelvis Category: Medical Code(s): C64.9 - Malignant neoplasm of unspecified kidney, except renal pelvis (9) Hypokalemia Current visit: Yes Status: Acute Category: Medical Code(s): E87.6 - Hypokalemia
[2019-12-30 15:21] LABS: Calprotectin, Fecal 555 ug/g (0-120)
[2019-12-30 15:44] VITALS: BP 125/79; PULSE 69; RESP 20; TEMP 37; O2SAT 99
--- NOTE | 2019-12-30 18:35 | PC.NURSE ---
Pt is alert and oriented and able to make needs known. RR even and unlabored. States she is feeling better at this time. Nausea and leg pain has improved from earlier today. CB in reach. VSS. No acute changes, Fluids infusing to IV in ALIX. Have given meds per mar.
[2019-12-30 20:00] VITALS: BP 135/68; PULSE 77; RESP 16; TEMP 36.7; O2SAT 96
--- NOTE | 2019-12-31 03:45 | PC.NURSE ---
Pt has rested intermittently t/o this shift. Pt has c/o of nausea x2 this shift with one episode of clear, yellow, frothy sputum noted. PRN antiemetic given per MAY x2. Pt c/o restlessness x1 this shift, PRN ativan administered per MAY. Multiple circular areas noted to pt's lower rt back. Areas are not open, are not warm or tender. Photos taken and placed in pt's chart along with signed photo consent. Pt continues to ambulate independently with a satisfactory gait and balance. Lung sounds are clear through all lung montes[place]. No edema noted. Son has remained at pt's bedside this entire shift. Call light within reach. No other acute changes or complaints at this time. Will continue to monitor.
[2019-12-31 04:00] VITALS: BP 142/81; PULSE 67; RESP 18; TEMP 36.8; O2SAT 97
[2019-12-31 05:00] VITALS: BMI 26.2
--- NOTE | 2019-12-31 07:31 | HMH.ACPN2 ---
<Narda Johnson - Last Filed: 12/31/19 07:31> Internal Medicine - PN: Subj *Date: 12/31/19 *Time: 07:31 Interval history: Patient has been nauseated most of the night. She finally vomited around 3 AM. She has received Phenergan and Zofran which really did not help. She also had 2 stools which were not quite as watery. She ate some of her dinner last night and retained. She feels like she is retaining her pills. She remains nauseated this morning. Exam Vital signs and Labs for Last 24 Hours: Temp Pulse Resp BP Pulse Ox 98.2 F 67 18 142/81 H 97 12/31/19 04:00 12/31/19 04:00 12/31/19 04:00 12/31/19 04:00 12/31/19 04:00 Laboratory Results - last 24 hr 12/26/19 18:00: Stool Calprotectin 555 H I & O for Last 24 hours: Intake & Output 12/28/19 12/29/19 12/30/19 12/31/19 11:59 11:59 11:59 11:59 Intake Total 1990 / 1990 1560 / 1560 300 / 300 2707 / 2707 Output Total 1650 / 1650 2350 / 2350 1750 / 1750 1999 Balance 341 / 341 -790 / -790 -1450 / -1450 707 / 707 Weight 158 lb 5 oz 160 lb 3 oz 155 lb 8 oz 157 lb 4 oz - Constitutional no acute distress - *Routine Respiratory Exam Present: CTA bilaterally (Anteriorly and posteriorly) - *Routine Cardiovascular Exam Present: RRR - *Routine Abdominal Exam Present: soft, normoactive bowel sounds, tenderness - *Routine Extremities Exam Absent: edema, calf tenderness - *Routine Neurological Exam Present: alert, oriented X3 Assessment and Plan (1) Vomiting Current visit: Yes Status: Acute Qualifiers: Vomiting type: unspecified Vomiting Intractability: unspecified Nausea presence: unspecified Qualified Code(s): R11.10 - Vomiting, unspecified Category: Medical Code(s): R11.10 - Vomiting, unspecified (2) Abdominal pain Current visit: No Status: Acute Category: Medical Code(s): R10.9 - Unspecified abdominal pain (3) Anemia Current visit: No Status: Acute Category: Medical Code(s): D64.9 - Anemia, unspecified (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 Current visit: No Status: Chronic Category: Medical Code(s): M47.816 - Spondylosis without myelopathy or radiculopathy, lumbar region (5) Hyperlipidemia Current visit: No Status: Chronic Category: Medical Code(s): E78.5 - Hyperlipidemia, unspecified (6) Hypertension Current visit: No Status: Chronic Category: Medical Code(s): I10 - Essential (primary) hypertension (7) Hypothyroid Current visit: No Status: Chronic Category: Medical Code(s): E03.9 - Hypothyroidism, unspecified (8) Metastatic renal cell carcinoma Current visit: No Status: Chronic Qualifiers: Laterality: unspecified laterality Qualified Code(s): C64.9 - Malignant neoplasm of unspecified kidney, except renal pelvis Category: Medical Code(s): C64.9 - Malignant neoplasm of unspecified kidney, except renal pelvis (9) Hypokalemia Current visit: Yes Status: Acute Category: Medical Code(s): E87.6 - Hypokalemia (10) Depression with anxiety Current visit: Yes Status: Acute Category: Medical Code(s): F41.8 - Other specified anxiety disorders (11) Erosive gastritis Current visit: Yes Status: Acute Category: Medical Code(s): K29.60 - Other gastritis without bleeding - Assessment and plan all Dx Assessment and Plan for all problems:: IV fluids continue at 100 an hour. She continues to require IV Phenergan and Zofran. She has retained some of her diet and is retaining her meds. For now continue current care. <Guillaume Toro - Last Filed: 12/31/19 08:38> Internal Medicine - PN: Subj *Date: 12/31/19 *Time: 08:37 Exam Vital signs and Labs for Last 24 Hours: Temp Pulse Resp BP Pulse Ox 98.2 F 67 18 142/81 H 97 12/31/19 04:00 12/31/19 04:00 12/31/19 04:00 12/31/19 04:00 12/31/19 04:00 Laboratory Results - last 24 hr 12/26/19 18:00: Stool Calprotectin 555 H I & O for
[2019-12-31 08:00] VITALS: BP 154/89; PULSE 72; RESP 18; TEMP 36.8; O2SAT 99
--- NOTE | 2019-12-31 09:38 | PC.NURSE ---
Pt has had emesis and x 3 loose bms thus far today. PRN zofran given. Resting with eyes closed at this time. Alert and oriented and able to make needs known. CB in reach. Son at bedside. BS hyperactive. S1,S2. Lungs cta. Room air. 8 small circular areas on L lower back, no s/s infection or c/o.
--- NOTE | 2019-12-31 13:10 | DIET.NUTRFU ---
Pt has had poor toleration diet advancement. 25% PO intake yesterday with fair-well toleration. She attempted breakfast and lunch today, was not able to eat much and did not tolerate either. Fluid and medication changes made today may benefit. Recommend continuing low fiber diet and downgrading if poor toleration continues. She has received education on nausea control and offered supplemental beverages which she feels she would be unable to tolerate at this time. Weight is stable. Continuing to monitor.
[2019-12-31 16:00] VITALS: BP 146/87; PULSE 67; RESP 20; TEMP 37.3; O2SAT 98
--- NOTE | 2019-12-31 19:10 | PC.NURSE ---
report given to devonte
[2019-12-31 19:40] VITALS: BP 150/86; PULSE 79; RESP 18; TEMP 36.9; O2SAT 98
--- NOTE | 2019-12-31 20:53 | PC.NURSE ---
Called PCP documentation clerk, spoke with Muna. Informed MD that pt was c/o nausea and abdominal upset. Administered Phenergan per mar for nausea. Infused full dose of Phenergan. Pt stated some relief. Continued to administered PM meds per may which included: Protonix, Dexamethasone, Gabapentin, and Metoporol. Pt reported an episode of emesis 3-4 minutes after medication administration. Pills were not digested. MD gave orders for Zofran admin per may and to re-administer all PM meds again.
--- NOTE | 2019-12-31 23:48 | PC.NURSE ---
Pt c/o nausea upon initial assessment this shift. Administered Phenergan for symptom relief. Upon reassessment pt denies symptom relief. Had emesis x1, 300 ml out. Emesis clear and green in color. No odor noted. Administered Zofran per may. Held off on re-administering PM meds due to still having nausea symptoms. Administered Compazine per may at 2210. Upon reassessment pt states nausea relief and states she will attempt to retake meds. PM meds re-administered. Pt tolerating well thus far. Resting in bed with eyes closed, no further complaints. Loose bm x2 noted thus far this shift.
--- NOTE | 2020-01-01 02:52 | PC.NURSE ---
Pt is alert and oriented x4. No acute changes noted from previous shift. Pt rested well with eyes closed this shift. PERRLA. Cap refill < 3 seconds. Bilateral hand lay out machine operator noted equal and strong. Tolerated RA well with no c/o SOA. Bilateral lungs noted clear t/o upon auscultation. RR noted even and unlabored. Abdomen noted soft and non-tender upon palpation. Pt states her stomach is rolling and c/o ongoing nausea t/o beginning of shift. See previous note for interventions given. Pt describes abdominal upset as that feeling when you're really hungry and you haven't eaten in awhile . Denies pain. Pt states she was able to keep lunch and dinner down on previous shift. Pt attempted to eat a snack this HS and was unable to eat it due to increased nausea. Ambulates well independently to and from bathroom. Adequate urine output noted. Pt states having multiple loose stools this shift along with previous shift today. No edema noted. Refused TEDS. VSS. Remains safe with son at bedside t/o shift. Call light within reach. Will continue to monitor.
[2020-01-01 03:55] VITALS: BP 150/88; PULSE 63; RESP 16; TEMP 36.8; O2SAT 98
[2020-01-01 05:00] VITALS: BMI 26.2
[2020-01-01 08:00] VITALS: BP 142/91; PULSE 68; RESP 18; TEMP 37; O2SAT 96
--- NOTE | 2020-01-01 08:06 | HMH.ACPN2 ---
<Sagrario Akins - Last Filed: 01/01/20 08:10> Internal Medicine - PN: Subj *Date: 01/01/20 *Time: 08:10 Interval history: Pt has been able to tolerate a small amount of breakfast this morning without emesis. Last doses of antiemetics were last night. She denies pain. She has had no loose stools this morning although she did have loose BM last night. She reports feeling somewhat better. Exam Vital signs and Labs for Last 24 Hours: Temp Pulse Resp BP Pulse Ox 98.3 F 63 16 150/88 H 98 01/01/20 03:55 01/01/20 03:55 01/01/20 03:55 01/01/20 03:55 01/01/20 03:55 I & O for Last 24 hours: Intake & Output 12/29/19 12/30/19 12/31/19 01/01/20 11:59 11:59 11:59 11:59 Intake Total 1560 / 1560 300 / 300 2827 / 2827 1770 / 1770 Output Total 2350 / 2350 1750 / 1750 2700 / 2700 1250 / 1250 Balance -790 / -790 -1450 / -1450 127 / 127 520 / 520 Weight 160 lb 3 oz 155 lb 8 oz 157 lb 4 oz 157 lb - Constitutional no acute distress - *Routine HEENT Exam Head: Present: normocephalic ENT: Present: mucous membranes moist - *Routine Respiratory Exam Comments: CTAB A&P - *Routine Cardiovascular Exam Present: RRR Assessment and Plan (1) Vomiting Status: Acute Qualifiers: Vomiting type: unspecified Vomiting Intractability: unspecified Nausea presence: unspecified Qualified Code(s): R11.10 - Vomiting, unspecified Category: Medical Code(s): R11.10 - Vomiting, unspecified (2) Abdominal pain Status: Acute Category: Medical Code(s): R10.9 - Unspecified abdominal pain (3) Anemia Status: Acute Category: Medical Code(s): D64.9 - Anemia, unspecified (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 Status: Chronic Category: Medical Code(s): M47.816 - Spondylosis without myelopathy or radiculopathy, lumbar region (5) Hyperlipidemia Status: Chronic Category: Medical Code(s): E78.5 - Hyperlipidemia, unspecified (6) Hypertension Status: Chronic Category: Medical Code(s): I10 - Essential (primary) hypertension (7) Hypothyroid Status: Chronic Category: Medical Code(s): E03.9 - Hypothyroidism, unspecified (8) Metastatic renal cell carcinoma Status: Chronic Qualifiers: Laterality: unspecified laterality Qualified Code(s): C64.9 - Malignant neoplasm of unspecified kidney, except renal pelvis Category: Medical Code(s): C64.9 - Malignant neoplasm of unspecified kidney, except renal pelvis (9) Hypokalemia Status: Acute Category: Medical Code(s): E87.6 - Hypokalemia (10) Depression with anxiety Status: Acute Category: Medical Code(s): F41.8 - Other specified anxiety disorders (11) Erosive gastritis Status: Acute Category: Medical Code(s): K29.60 - Other gastritis without bleeding <Guillaume Toro - Last Filed: 01/01/20 08:42> Internal Medicine - PN: Subj *Date: 01/01/20 *Time: 08:40 Exam Vital signs and Labs for Last 24 Hours: Temp Pulse Resp BP Pulse Ox 98.6 F 68 18 142/91 H 96 01/01/20 08:00 01/01/20 08:00 01/01/20 08:00 01/01/20 08:00 01/01/20 08:00 I & O for Last 24 hours: Intake & Output 12/29/19 12/30/19 12/31/19 01/01/20 23:59 23:59 23:59 23:59 Intake Total 0 / 0 1475 / 1715 2857 / 2857 805 / 805 Output Total 1450 / 2700 2250 / 3250 2750 / 2750 200 / 200 Balance -1450 / -2700 -775 / -1535 107 / 107 605 / 605 Weight 160 lb 3 oz 155 lb 8 oz 157 lb 4 oz 157 lb Assessment and Plan (1) Vomiting Status: Acute Qualifiers: Vomiting type: unspecified Vomiting Intractability: unspecified Nausea presence: unspecified Qualified Code(s): R11.10 - Vomiting, unspecified Category: Medical Code(s): R11.10 - Vomiting, unspecified (2) Abdominal pain Status: Acute Category: Medical Code(s): R10.9 - Unspecified abdominal pain (3) Anemia Status: Acute Category: Medical Code(s): D64.9 - Anemia, unspecified (4) Degenerative joint disease (DJD) of lum
--- NOTE | 2020-01-01 14:26 | PC.NURSE ---
PT IS SLEEPING AT THIS TIME. PT HAS FELT SOMEWHAT BETTER THIS SHIFT. MEDICATED FOR NAUSEA NEEDED. PT IS EATING VERY LITTLE AT A TIME. TOLERATED ALL OF HER ORAL MEDICATIONS W/O VOMITING. VSS. LUNG SOUNDS CLEAR. ABDOMEN SOFT/NON TENDER WITH ACTIVE BOWEL SOUNDS. WILL CONTINUE TO MONITOR.
[2020-01-01 15:45] VITALS: BP 139/78; PULSE 70; RESP 18; TEMP 36.7; O2SAT 96
[2020-01-01 19:53] VITALS: BP 118/66; PULSE 67; RESP 18; TEMP 36.8; O2SAT 96
[2020-01-01 20:00] VITALS: O2SAT 96
--- NOTE | 2020-01-01 20:25 | PC.NURSE ---
Routine assessment completed. VSS. Pt. A&O X4, Lungs CTA, Heart ar RRR. BS present x4 quad. Pt. reports pain to LUQ at 2/10. pt refuses pain medication. Bruises noted to left flank in a grid pattern, with 8 spots noted in grid. Brownish red in color. Pt. denies pain at these sites. Pt. denies further needs at this time, will continue to monitor.
[2020-01-02 04:00] VITALS: BP 137/66; PULSE 61; RESP 16; TEMP 36.7; O2SAT 96
--- NOTE | 2020-01-02 04:26 | PC.NURSE ---
Reassessment completed. No acute changes from previous assessment. Pt. remains A&O x4. Lungs CTA, Heart at RRR. BS present x4 quad. Pt. denies nausea at this time, last dose of compazine was at 18:20. Pt. reports pain in LUQ remains at 2/10, states she is comfortable. Grid like bruises remain a reddish brown color. Pt. denies needs, will continue to monitor.
[2020-01-02 05:00] VITALS: BMI 25.7
[2020-01-02 06:40] LABS: Basophils % 0.4 % (0.1-2.0); Eosinophils % 0.3 % (0.1-12.0); Hematocrit 37.5 % (37.0-47.0); Hemoglobin 12.7 g/dL (12.2-16.2); Lymphocytes % 12.8 % (10-50); Mean Corpuscular HGB Conc 33.8 g/dL (31.8-35.4); Mean Corpuscular Hemoglobin 28.3 pg (27.0-31.2); Mean Corpuscular Volume 83.8 fl (81-99); Mean Platelet Volume 7.6 fl (7.4-10.4); Monocytes # 0.7 K/mm3 (0.1-1.0); Monocytes % 8.8 % (1.7-9.3); Neutrophils # 6.1 K/mm3 (1.8-7.8); Neutrophils % 77.7 % (37.0-80.0); Platelet Count 365 K/mm3 (142-424); Red Blood Count 4.48 M/mm3 (4.20-5.40); Red Cell Distribution Width 14.4 % (11.5-17.5); White Blood Count 7.8 K/mm3 (4.8-10.8)
[2020-01-02 06:42] LABS: Chloride 100 mmol/L (98-107)
[2020-01-02 06:43] LABS: Potassium 4.3 mmoL/L (3.5-5.1); Sodium 134 mmol/L (136-145)
[2020-01-02 06:45] LABS: Blood Urea Nitrogen 17 mg/dl (7-17); Creatinine Clearance Estimated 87 mL/min (50-200); Estimated Glomerular Filt Rate 74 ml/min (>60); GFR (African American) 90 ML/MIN (>60)
[2020-01-02 06:46] LABS: Anion Gap 10.3 mEq/L (5-15); Calcium 8.5 mg/dl (8.4-10.2); Carbon Dioxide 28 mmol/L (22.0-30.0); Glucose 156 mg/dl (74-100)
--- NOTE | 2020-01-02 07:21 | PC.NURSE ---
Report given to Stevie Shahid RN.
[2020-01-02 07:46] VITALS: BP 147/77; PULSE 61; RESP 18; TEMP 36.8; O2SAT 96
--- NOTE | 2020-01-02 07:47 | SW/DCPLANNER ---
THIS PATIENT REMAINS IN THE ACUTE HOSPITAL WITH CONTINUED NAUSEA/VOMITING... SHE HAS A HISTORY OF RENAL CELL CARCINOMA AND HAD BEEN SEEKING TREATMENT... PATIENT IS FROM HOME AND THE PLAN IS FOR HER TO RETURN BACK THERE POST DISCHARGE... WILL CONTINUE TO FOLLOW THROUGH HER ACUTE CARE STAY AND ASSIST WITH ANY HOME CARE THAT MAY BE NECESSARY AT TIME OF DISCHARGE...
--- NOTE | 2020-01-02 07:50 | HMH.ACPN2 ---
<Sagrario Akins - Last Filed: 01/02/20 07:50> Internal Medicine - PN: Subj *Date: 01/02/20 *Time: 07:50 Interval history: Pt is feeling better this morning. She denies any nausea currently and reports no episodes of emesis although she does admit to some significant nausea last night. She has no pain. She tolerated her breakfast well. Exam Vital signs and Labs for Last 24 Hours: Temp Pulse Resp BP Pulse Ox 98.2 F 61 18 147/77 H 96 01/02/20 07:46 01/02/20 07:46 01/02/20 07:46 01/02/20 07:46 01/02/20 07:46 Laboratory Results - last 24 hr 12/26/19 18:00: Stool Pancreat Elastase TNP 01/02/20 05:49: Sodium 134 L, Potassium 4.3, Chloride 100, Carbon Dioxide 28, Anion Gap 10.3, BUN 17, Creatinine 0.80, Estimated Creat Clear 87, Estimated GFR 74, Est GFR ( Amer) 90, Glucose 156 H, Calcium 8.5 01/02/20 05:49: WBC 7.8, RBC 4.48, Hgb 12.7, Hct 37.5, MCV 83.8, MCH 28.3, MCHC 33.8, RDW 14.4, Plt Count 365, MPV 7.6, Neut % (Auto) 77.7, Lymph % (Auto) 12.8, Branch % (Auto) 8.8, Eos % (Auto) 0.3, Baso % (Auto) 0.4, Neut # (Auto) 6.1, Lymph # (Auto) 1.0, Branch # (Auto) 0.7, Eos # (Auto) 0.0, Baso # (Auto) 0.0 I & O for Last 24 hours: Intake & Output 12/30/19 12/31/19 01/01/20 01/02/20 11:59 11:59 11:59 11:59 Intake Total 300 / 300 2827 / 2827 2009 1098 / 1098 Output Total 1750 / 1750 2700 / 2700 1250 / 1250 1600 / 1600 Balance -1450 / -1450 127 / 127 760 / 1120 -502 / -502 Weight 155 lb 8 oz 157 lb 4 oz 157 lb 154 lb 9 oz - Constitutional no acute distress - *Routine HEENT Exam Head: Present: normocephalic ENT: Present: mucous membranes moist - *Routine Respiratory Exam Comments: CTAB A&P - *Routine Cardiovascular Exam Present: RRR - *Routine Abdominal Exam Present: soft, normoactive bowel sounds. Absent: tenderness, distended, guarding, firm, rigid - *Routine Extremities Exam Present: full ROM, pulses intact. 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 Status: Chronic Category: Medical Code(s): M47.816 - Spondylosis without myelopathy or radiculopathy, lumbar region (5) Hyperlipidemia Status: Chronic Category: Medical Code(s): E78.5 - Hyperlipidemia, unspecified (6) Hypertension Status: Chronic Category: Medical Code(s): I10 - Essential (primary) hypertension (7) Hypothyroid Status: Chronic Category: Medical Code(s): E03.9 - Hypothyroidism, unspecified (8) Metastatic renal cell carcinoma Status: Chronic Qualifiers: Laterality: unspecified laterality Qualified Code(s): C64.9 - Malignant neoplasm of unspecified kidney, except renal pelvis Category: Medical Code(s): C64.9 - Malignant neoplasm of unspecified kidney, except renal pelvis (9) Hypokalemia Status: Acute Category: Medical Code(s): E87.6 - Hypokalemia (10) Depression with anxiety Status: Acute Category: Medical Code(s): F41.8 - Other specified anxiety disorders (11) Erosive gastritis Status: Acute Category: Medical Code(s): K29.60 - Other gastritis without bleeding - Assessment and plan all Dx Assessment and Plan for all problems:: Continue current care. Further per Dr. Toro. <Guillaume Toro - Last Filed: 01/02/20 08:44> Internal Medicine - PN: Subj *Date: 01/02/20 *Time: 08:42 Exam Vital signs and Labs for Last 24 Hours: Temp P
[2020-01-02 08:00] VITALS: O2SAT 96
--- NOTE | 2020-01-02 10:04 | HMH.PHAINT ---
DISCHARGE COUNSELING COMPLETED ON PATIENT. NEW PRESCRIPTIONS FOR DEXAMETHASONE AND COMPAZINE. BOTH PRESCRIPTIONS WERE SENT TO [facility] IN [place]. PATIENT IS TO CONTINUE THE REST OF HER HOME MEDICATIONS. PATIENT VERBALIZED UNDERSTANDING AND HAD NO QUESTIONS AT THIS TIME. -OCTAVIO COULTER, LISAD
--- NOTE | 2020-01-02 10:31 | PC.NURSE ---
Addendum entered by Kaylie Shahid RN 01/02/20 11:40: *Miriam spoke w pharmacy not House *Pharmacy called saying pt could have a flu vaccine if she wants one. Asked pt if she would like one and she refused. Pharmacy aware. Original Note: Went to discharge pt and she states she won't have a ride until this afternoon between 1330 and 1500. House called and said we only had 3 flu vaccines available at this time. I told her pt to ask for one at her doctor's appointment next week.
--- NOTE | 2020-01-02 12:32 | PC.NURSE ---
A&OX4. PT HAS TOLERATED ROOM AIR WELL THROUGHOUT SHIFT. RESPIRATIONS REGULAR AND UNLABORED. LUNG SOUNDS CLEAR. HAND ESTIMATOR LUMBER EQUAL. +2 PULSES NOTED. NO COUGH NOTED. NO EDEMA NOTED. ACTIVE BOWEL SOUNDS HEARD IN ALL 4 QUADRANTS. SOFT AND NONTENDER ABDOMEN. NO BM THUS FAR. PT VOIDS PER RESTROOM INDEPENDENTLY. NO REPORTS OF PAIN THUS FAR. REPORTED NAUSEA ONCE AND RECEIVED PRN PER MAY. PT HAS REMAINED AFEBRILE. PT IS WAITING ON A RIDE TO TAKE HER HOME. PT CURRENTLY LYING IN BED RESTING. BED IN LOWEST POSITION. CALL LIGHT WITHIN REACH. VSS. WILL CONTINUE TO MONITOR.
--- NOTE | 2020-01-02 12:56 | PC.NURSE ---
ASSUMED CARE OF THIS PT FROM Wayne LI RN AT THIS TIME.
[2020-01-02 16:00] VITALS: BP 143/76; PULSE 60; RESP 19; TEMP 36.8; O2SAT 95
--- NOTE | 2020-01-04 09:28 | HMH.DCSUM ---
General - General Admission date:: 12/22/19 <Guillaume Toro - 01/05/20 08:24> 12/22/19 <Johnson,Narda - 01/04/20 10:02> Discharge date: 01/02/20 <Narda Johnson - 01/04/20 10:02> HPI HPI: Ms. Carter is a 54-year-old female with a history of hypothyroidism, hypertension, hyperlipidemia, metastatic renal cell carcinoma followed by Dr. Abreu and with pain management per Dr. Daniels. She has been receiving chemotherapy every 3 weeks as directed per Dr. Abreu. She also sees pain management every 2 weeks. She has a morphine pump along with a fentanyl patch and oxycodone. She presented to [facility] after 6 days of abdominal pain, nausea and vomiting. She states that she was unable to retain any fluids or food. Her urinary output had decreased. She was started on Phenergan yesterday but was unable to retain. She did experience some loose stools yesterday as well. She denies fever and any upper respiratory symptoms. Thus she presented to [facility] ER for evaluation In the emergency room she was treated with a fluid bolus And IV Phenergan. CT of the abdomen revealed findings of a 6 mm appendix with possible subtle stranding. White blood cell count was noted to be normal. She was then admitted for inpatient management along with surgical consultation due to the findings on the CT scan. The following a.m. patient had received pain medication and IV Phenergan. She was seen by Dr. Velazco who planned to review the CT scan with radiology and compare to her recent CT scan completed about 4 weeks ago. He was doubtful for the diagnosis of appendicitis. Patient stated she slept very little. She wanted to try clear liquids when approved by the surgeon. With hydration hemoglobin decreased from 13.2 to 10.9 and hematocrit of 40 to 33.4. Electrolytes were normal. Renal function was normal. White count remained normal at 6900. <Johnson,Narda - 01/04/20 10:02> Hospital Course Hospital Course: On admission patient was started on IV fluids, pain medicine, and antiemetics. She was seen by surgeon, Dr. Velazco, who noted findings of a 6 mm appendix with possible subtle stranding on abdominal CT scan with a white blood cell count being normal. He doubted appendicitis. Patient did tolerate liquids after admission. Dr. Velazco when comparing current CT scan with CT scan completed several weeks ago did not feel there was any change. Patient continued with nausea and vomiting and retained very few p.o. fluids. She did void normally. She was able to ambulate to the bathroom without any help. She also was suffering with diarrhea. Potassium was low and she was started on p.o. potassium. She was also seen by her oncologist Dr. Abreu. Antibiotics and steroids were initiated. Her pain pump was discontinued as a possible source of her nausea and vomiting. Also to note patient stool studies were negative. Initially vomiting and diarrhea did improve after turning off her morphine. She continued with some abdominal cramping associated with episodes of emesis and diarrhea. She continued not to tolerate liquids. Patient was started on dexamethasone and Rocephin empirically as well as Protonix IV. Patient was seen also by electric range assembler, Dr. Le, who felt this could be a Neoplastic syndrome occurring commonly with renal cell carcinoma. Patient became hypertensive. She was started back on her duloxetine and gabapentin, Lorazepam as needed for anxiety and also started back on her lisinopril. She tolerated full liquids at times. Blood pressure remained elevated and metoprolol was increased as well as lisinopril. On 12/22/2019 patient had an EGD with findings of hemorrhagic/erosive gastritis (moderate). She also had a colonoscopy with findings of mild left colitis. Steriods and ABX were continued. After her procedures patient continued with nausea but was able to retain some food. She was having fewer stools. Her lisset
[2020-01-06 09:58] LABS: Lactoferrin, Fecal, Quant. 67.02 ug/mL(g) (0.00-7.24)
== END 2020-01-02 16:50 | disposition home or self-care (01) ==
LOC: ER 20:59 → 2ND 21:53
PROVIDERS: Emergency Medicine; Internal Medicine Gastroenterology; Nurse Practitioner Family; Admitting Provider Family Medicine; Emergency Provider Emergency Medicine; PCP Family Medicine; Visit Provider Family Medicine
PROC: 0DJ08ZZ Inspection of Upper Intestinal Tract, Via Natural or Artificial Opening Endoscopic (ICD-10-PCS; CPT 43235; principal; 2019-12-29 15:00)
DX: K29.60 Other gastritis without bleeding (principal); E03.9 Hypothyroidism, unspecified; I11.0 Hypertensive heart disease with heart failure; I50.9 Heart failure, unspecified; Z87.891 Personal history of nicotine dependence; C64.9 Malignant neoplasm of unspecified kidney, except renal pelvis; C78.00 Secondary malignant neoplasm of unspecified lung; C78.7 Secondary malignant neoplasm of liver and intrahepatic bile duct; C77.9 Secondary and unspecified malignant neoplasm of lymph node, unspecified; M47.896 Other spondylosis, lumbar region
CPT/HCPCS: 43235; 45380; 36415; 74177; 80048; 80053; 81001; 82656; 83605; 83630; 83690; 83993; 85025; 85651; 86140; 86328; 87040; 87507; 88305; 88312; 88313; 88342; 93005; 96365; 99284; G0378; J1335; J2405; Q9967

== ENCOUNTER 2020-01-03 22:23 | Observation (INO) | payer MEDICARE, SELFPAY ==
[2020-01-03 22:31] VITALS: BP 140/94; PULSE 103; RESP 18; TEMP 36.6; O2SAT 98; BMI 26.6
--- NOTE | 2020-01-03 22:39 | CT_ITS ---
PROCEDURE: CT ABDOMEN PELVIS WO CON CLINICAL INDICATION: Abd cramping w/ N/V/D generalized abdominal pain/cramping with N/V/D. Recent scope (biopsy) Hx of renal cell carcinoma in 2018; had rad tmts COMPARISON: CT CT ABDOMEN PELVIS W CON from 11/17/[address] ABDOMEN PELVIS W CON from 12/22/2019 TECHNIQUE: Axial images obtained with sagittal and coronal reformats. All CT scans at the facility use one or more dose reduction, viz: automated exposure control, ma/kV adjustment per patient size (including targeted exams where dose is matched to indication, i.e. head), or iterative reconstruction technique. FINDINGS: LOWER THORAX: No acute finding ABDOMEN & PELVIS: There are vague low-density changes in the right hepatic lobe anteriorly and inferiorly not significantly consistent with an area of treated hepatic metastasis. The spleen is unremarkable. No obvious adrenal mass. There is pancreatic atrophy. Left renal mass once again noted in the upper pole of the left kidney with coarse calcifications. The mass measures 4.9 x 4 cm not significantly changed. The right kidney has an unremarkable appearance. No intestinal obstruction or free air. No evidence of retroperitoneal adenopathy. Previously the appendix was reported to be slightly prominent. The minimal haziness of the periappendiceal fat has improved. There are scattered air-fluid levels within the large bowel. No evidence of small-bowel obstruction. There is mild thickening of the stomach wall which could be seen with gastritis. Prior hysterectomy. No pelvic mass or abnormal fluid collection. Degenerative disc disease is present at L5-S1. IMPRESSION: Overall no significant change in the left renal mass and low-density changes of the liver consistent with treated hepatic metastasis Scattered air-fluid levels within the large bowel which may be seen with diarrhea disease/colitis Mild thickening of the gastric wall which may be seen with gastritis. Dictated by: Brian Mayers MD 01/04/2020 07:39 Brian Mayers MD in [place] 01/04/2020 07:39
[2020-01-03 22:54] LABS: Basophils # 0.1 K/mm3 (0-0.2); Basophils % 0.6 % (0.1-2.0); Eosinophils # 0.5 K/mm3 (0.0-0.4); Hematocrit 43.8 % (37.0-47.0); Hemoglobin 14.9 g/dL (12.2-16.2); Lymphocytes % 19.7 % (10-50); Mean Corpuscular Hemoglobin 28.1 pg (27.0-31.2); Mean Corpuscular Volume 82.5 fl (81-99); Mean Platelet Volume 7.3 fl (7.4-10.4); Monocytes # 0.9 K/mm3 (0.1-1.0); Neutrophils # 6.8 K/mm3 (1.8-7.8); Neutrophils % 65.7 % (37.0-80.0); Platelet Count 478 K/mm3 (142-424); Red Blood Count 5.31 M/mm3 (4.20-5.40); Red Cell Distribution Width 14.3 % (11.5-17.5); White Blood Count 10.4 K/mm3 (4.8-10.8)
[2020-01-03 23:05] LABS: Alanine Aminotransferase 27 U/L (12-78); Albumin Level 3.8 g/dl (3.5-5.0); Albumin/Globulin Ratio 1.3 (1.1-1.8); Alkaline Phosphatase 120 U/L (38-126); Amylase 110 U/L (30-110); Aspartate Amino Transferase 30 U/L (14-36); Bilirubin,Total 0.4 mg/dl (0.2-1.3); Blood Urea Nitrogen 18 mg/dl (7-17); Calcium 9.3 mg/dl (8.4-10.2); Carbon Dioxide 23 mmol/L (22.0-30.0); Chloride 102 mmol/L (98-107); Creatinine Clearance Estimated 90 mL/min (50-200); Estimated Glomerular Filt Rate 74 ml/min (>60); GFR (African American) 90 ML/MIN (>60); Globulin 2.9 g/dL (1.3-3.2); Glucose 159 mg/dl (74-100); Lipase 110 U/L (23-300); Sodium 137 mmol/L (136-145); Total Protein,Serum 6.7 g/dl (6.3-8.2)
[2020-01-03 23:10] LABS: C-Reactive Protein 8.3 mg/L (0-4)
[2020-01-03 23:16] LABS: Coronavirus 19 IgG Antibody Negative (Negative); Coronavirus 19 IgM Antibody Negative (Negative)
[2020-01-03 23:17] LABS: Erythrocyte Sedimentation Rate 2 mm/hr (0-30)
--- NOTE | 2020-01-03 23:25 | HMH.EDNVD ---
ED Disposition Clinical Impression: Widespread metastatic malignant neoplastic disease, Intractable vomiting with nausea Disposition: Admitted as Observation Condition on Discharge: Good Referrals: Guillaume Toro MD [Primary Care Provider] - - Critical Care Critical Care Time: No Attestation: On 01/03/20, the high probability of a clinically significant, sudden or life threatening deterioration of the following system(s) required my full and direct attention, intervention and personal management. The time I documented below is in addition to time spent performing reported procedures but includes the following listed in this critical care notation. Medical Decision Making - Medical Records Medical records reviewed: Yes: I reviewed the patient's medical records. - Edson Inquiry Pt receiving controlled substance: No Vital Signs: 01/03/20 22:31 Temperature 97.9 F Temperature Source Oral Pulse Rate [Right] 103 H Respiratory Rate 18 Blood Pressure [Left Arm] 140/94 H Blood Pressure Mean [Left Arm] 109 Blood Pressure Source [Left Arm] Automatic Cuff Blood Pressure Position [Left Arm] Supine 02 Sat by Pulse Oximetry 98 Oxygen Delivery Method Room Air - Lab Data Lab results reviewed: Yes: I reviewed the patient's lab results. Lab Results 01/03/20 22:38: WBC 10.4 D, RBC 5.31, Hgb 14.9, Hct 43.8, MCV 82.5, MCH 28.1, MCHC 34.0, RDW 14.3, Plt Count 478 H D, MPV 7.3 L, Neut % (Auto) 65.7, Lymph % (Auto) 19.7, Miller % (Auto) 9.0, Eos % (Auto) 5.0, Baso % (Auto) 0.6, Neut # (Auto) 6.8, Lymph # (Auto) 2.0, Miller # (Auto) 0.9, Eos # (Auto) 0.5 H, Baso # (Auto) 0.1, ESR 2 01/03/20 22:38: Sodium 137, Potassium 3.0 L, Chloride 102, Carbon Dioxide 23, Anion Gap 15.0, BUN 18 H, Creatinine 0.80, Estimated Creat Clear 90, Estimated GFR 74, Est GFR ( Amer) 90, Glucose 159 H, Calcium 9.3, Total Bilirubin 0.4, AST 30, ALT 27, Alkaline Phosphatase 120, C-Reactive Protein 8.3 H, Total Protein 6.7, Albumin 3.8, Globulin 2.9, Albumin/Globulin Ratio 1.3, Amylase 110, Lipase 110 01/03/20 22:38: SARS-CoV-2 IgG Ab (Rapid) Negative, SARS-CoV-2 IgM Ab (Rapid) Negative Result diagrams: 01/03/20 22:38 01/03/20 22:38 Orders (Tests/Meds): ED MEDICATIONS Generic Name Dose Route Start Last Admin Trade Name Freq PRN Reason Stop Dose Admin Sodium Chloride 1,000 mls @ 999 mls/hr 01/03/20 22:45 01/03/20 23:10 Sod Chlor 0.9% 1000ml Bag IV 01/03/20 23:45 999 mls/hr .Q1H1M DINESH Administration Discontinued Medications Generic Name Dose Route Start Last Admin Trade Name Freq PRN Reason Stop Dose Admin Prochlorperazine Edisylate 10 mg 01/03/20 22:39 01/03/20 23:10 Prochlorperazine 10mg/2ml Vial IV 01/03/20 22:40 10 mg ONCE ONE Administration ORDERS Category Date Time Status CT abdomen pelvis wo con Stat Cat Scan 01/03/20 22:39 Ordered Diarrhea 23 Panel, PCR Stat Lab 01/03/20 22:39 Ordered - CT Data CT Scan: Abdomen, Pelvis Time Received: 23:[address] Reviewed: Yes: I have viewed the radiologist's interpretation Preliminary Findings: Abnormal (see report ) - Physician Consults Physician Consulted: john Reason -: Admission Nausea/Vomiting/Diarrhea HPI - General Chief complaint: Nausea/Vomiting/Diarrhea Stated complaint: Vomiting Time Seen by Provider: 01/03/20 23:00 Mode of Arrival: Wheelchair Source of Information: Patient, Relative, Medical Record Limitations: No Limitations Description of Symptoms (Recalled from ER Triage Doc. by RN): Pt discharged from this hospital yesterday, states she has not stopped vommitting and cant keep anything down, N/V/D since discharge. - History of Present Illness HPI Narrative: pt with known metastatic renal cancer with recent admit for vomiting - was d/c 01/01 and back tonight with same sx - MD complaint: nausea, vomiting Onset (ago): day(s) Associated Abdominal Pain: Yes Location of pain: diffuse Severity: similar to previous episodes Cons
[2020-01-03 23:32] VITALS: BP 131/96; RESP 16; O2SAT 100
--- NOTE | 2020-01-03 23:34 | PC.NURSE ---
Dr Mccloud speaking with Dr Jordan at this time
--- NOTE | 2020-01-03 23:39 | PC.NURSE ---
Pt states her cramping and Nausea are improved now after the compazine was given IV
[2020-01-03 23:50] VITALS: BP 131/96; PULSE 96; RESP 16; TEMP 36.6; O2SAT 100
[2020-01-04] VITALS (8 sets, daily range): BP systolic 124–173; BP diastolic 74–95; PULSE 58–87; RESP 16–18; TEMP 36.6–36.8; O2SAT 95–100; BMI 25.7
--- NOTE | 2020-01-04 00:20 | PC.NURSE ---
patient to floor via wheelchair.
--- NOTE | 2020-01-04 05:01 | PC.NURSE ---
Addendum entered by Lety Whittaker RN 01/04/20 06:30: pt BP rechecked at 0600 and was 150/88 Original Note: shift summary, pt has rested well since arriving to floor, no complaints of N/V/D, no diarrhea or vomiting reported or seen, pt systolic pressure has been between 170-173, diastolic has been between 88-95, pt has no complaints of chest pain, SOA, diaphoresis, pt does report that she has not taken any of her medications since her discharge from this facility on 12/02
[2020-01-04 07:29] LABS: Basophils # 0.1 K/mm3 (0-0.2); Basophils % 0.6 % (0.1-2.0); Chloride 104 mmol/L (98-107); Eosinophils # 0.6 K/mm3 (0.0-0.4); Eosinophils % 7.3 % (0.1-12.0); Hematocrit 38.1 % (37.0-47.0); Lymphocytes # 1.4 K/mm3 (0.7-4.5); Mean Corpuscular HGB Conc 33.6 g/dL (31.8-35.4); Mean Corpuscular Hemoglobin 27.9 pg (27.0-31.2); Mean Corpuscular Volume 83.1 fl (81-99); Mean Platelet Volume 7.2 fl (7.4-10.4); Monocytes # 0.6 K/mm3 (0.1-1.0); Monocytes % 7.7 % (1.7-9.3); Neutrophils # 5.5 K/mm3 (1.8-7.8); Neutrophils % 67.4 % (37.0-80.0); Platelet Count 350 K/mm3 (142-424); Potassium 3.1 mmoL/L (3.5-5.1); Red Blood Count 4.59 M/mm3 (4.20-5.40); Red Cell Distribution Width 14.2 % (11.5-17.5); Sodium 135 mmol/L (136-145); White Blood Count 8.1 K/mm3 (4.8-10.8)
[2020-01-04 07:32] LABS: Anion Gap 8.1 mEq/L (5-15); Blood Urea Nitrogen 13 mg/dl (7-17); Carbon Dioxide 26 mmol/L (22.0-30.0); Creatinine Clearance Estimated 100 mL/min (50-200); Estimated Glomerular Filt Rate 87 ml/min (>60); GFR (African American) 105 ML/MIN (>60)
[2020-01-04 07:33] LABS: Glucose 140 mg/dl (74-100)
[2020-01-04 07:36] LABS: Hemoglobin 12.8 g/dL (12.2-16.2)
--- NOTE | 2020-01-04 11:12 | HMH.HP ---
*Admission Date: 01/04/20 *Chief complaint: Vomiting, metastatic renal cell carcinoma *History of present illness: This 54-year-old female has a history of hypothyroidism hypertension hyperlipidemia and metastatic renal cell carcinoma. She is followed by Dr. Abreu, oncology and by Dr. Daniels for pain management. She was hospitalized at [facility] and discharged on 01 01. She returned to the emergency room on 01 02 with recurrent intractable vomiting. She is readmitted at this time. She receives chemotherapy every 3 weeks. She sees pain management every 2 weeks. She has a morphine pump along with a fentanyl patch and takes oxycodone as well. At the previous hospitalization she had intractable nausea and vomiting. Her urinary output had decreased. Phenergan has not controlled her symptoms [facility] History Medical History: Reports:: Congestive Heart Failure, Hyperlipidemia, Hypertension Denies:: Cancer, Coronary Artery Disease, Diabetes Mellitus Type 1, Diabetes Mellitus Type 2, Internal Pacemaker, MRSA, Seizures *Have you ever received a pneumonia vaccine?: No *Have you received a flu vaccine this season?: No Other Medical History: Reports: Anemia, Blood Transfusion Reaction, Chemotherapy, Hormone Therapy, Hypothyroidism, Radiation Therapy, Thyroid Disease Laterality Cases: Left: Breast Biopsy, Right: Carpal Tunnel Release Other Surgeries: Yes: Cancer Surgery (renal biopsy, lt axillary node bx), , Hysterectomy-Total, Other (renal biopsy; lt axillary node biopsy). No: Pacemaker Amputation: No Fractures: No - *Social History Last grade of school completed: Advanced degree Smoking Status: Former smoker Tobacco Type: cigarettes # Packs/Day (cigarettes): 1 #Yrs smoked (if former smoker): 20 Alcohol Intake: never Alcohol Intake Frequency:: other Substance Use Type: denies use *Occupational Status:: disabled Housing: house Household Members: spouse, family *Travel in the last 8 weeks: None Family Hx:: Cancer, Coronary Artery Disease, Heart Attack, Hyperlipidemia, Hypertension, Stroke Review of Systems - Constitutional Reports body ache(s), Reports fatigue, Reports lack of energy, Reports malaise - Eyes Denies change in vision - ENT Reports dry mouth - *Cardiovascular Denies chest pain - *Respiratory Denies change in phlegm color - *Gastrointestinal Reports cramping, Reports loose stools - *Neurologic Denies headache(s), Denies seizure-like activity Meds Home Medications Medication Instructions Recorded Confirmed Type estradioL [Estradiol] 2 mg PO DAILY 07/03/18 01/04/20 History duloxetine 20 mg capsule,delayed 30 mg PO BID 10/10/18 01/04/20 History release hydrOXYzine HCL [Hydroxyzine HCl] 1 - 2 tab PO DAILY PRN 12/05/18 01/03/20 History Gabapentin [Gabapentin 100mg Cap] 300 mg PO HS 05/14/19 01/04/20 History Nivolumab [Opdivo] 240 mg IV MONTHLY 08/13/19 01/03/20 History fentaNYL [fentaNYL Patch 12mcg/hr] 12 mcg TD Q72H 10/31/19 01/04/20 History Levothyroxine Sodium 150 mcg PO DAILY 11/21/19 01/04/20 History [Levothyroxine 150mcg (0.15mg) Tab] lisinopriL [Lisinopril 10mg Tab] 10 mg PO DAILY 11/21/19 01/04/20 History Oxycodone HCl [Oxycodone (IR) 10mg 10 mg PO BID 12/22/19 01/04/20 History Tab] Melatonin 10 mg PO HS PRN 12/23/19 01/03/20 History Metoprolol Tartrate 50 mg PO BID 12/23/19 01/04/20 History Ipilimumab [Yervoy 50mg/10mL Vial] 80 mg IV MONTHLY 12/27/19 01/03/20 History Prochlorperazine Maleate 10 mg PO Q6HP PRN #30 tab 01/02/20 01/03/20 Rx [Compazine 10mg tablet] dexAMETHasone [Dexamethasone] 2 mg PO BID 01/03/20 01/04/20 History Allergies Allergy/AdvReac Type Severity Reaction Status Date / Time adalimumab [From Humira] Allergy Rash Verified 01/04/20 02:15 metoclopramide [From Reglan] AdvReac Anxiety Verified 01/04/20 02:15 Exam Vital signs and Labs for Last 24 Hours: Temp Pulse Resp BP Pulse Ox 98.2 F 87 18 160/85 H 96 01/04/20 07:55 01/04/20
--- NOTE | 2020-01-04 11:32 | HMH.PHAINT ---
MED REC-COMPARED D/C SUMMARY FROM 01/02/20 TO MED LIST. CORRECTIONS MADE.
--- NOTE | 2020-01-04 11:32 | HMH.PHAVTE ---
[facility] Pharmacy VTE Monitoring - Patient Demographics Admission date: 01/04/20 Report Date: 01/04/20 Time: 11:32 Allergies/Adverse Reactions: Patient Allergies adalimumab [From Humira] Allergy (Verified 01/04/20 02:15) Rash metoclopramide [From Reglan] Adverse Reaction (Verified 01/04/20 02:15) Anxiety Height: 1.65 m Weight: 70.307 kg Patient Problems: Current Active Problems Widespread metastatic malignant neoplastic disease (Chronic) Abdominal pain (Acute) Intractable vomiting with nausea (Acute) - VTE Risk Labs: VTE Related Lab Results Hgb 12.8 g/dL (12.2-16.2) D 01/04/20 07:00 Hct 38.1 % (37.0-47.0) 01/04/20 07:00 Plt Count 350 K/mm3 (142-424) D 01/04/20 07:00 BUN 13 mg/dl (7-17) D 01/04/20 07:00 Creatinine 0.70 mg/dl (0.52-1.04) 01/04/20 07:00 Estimated Creat Clear 100 mL/min (50-200) 01/04/20 07:00 VTE Score: 5 VTE Risk Level: Low Risk - Prophylaxis Types of VTE Prophylaxis: TEDS Knee High (ARIS HOSE ORDER PLACED)
--- NOTE | 2020-01-04 18:02 | PC.NURSE ---
A&OX4. PT HAS TOLERATED ROOM AIR WELL THROUGHOUT SHIFT. RESPIRATIONS REGULAR AND UNLABORED. LUNG SOUNDS BILATERALLY CLEAR. NO COUGH NOTED. +2 PULSES NOTED. HAND RIVET SPINNER EQUAL. ACTIVE BOWEL SOUNDS HEARD IN ALL 4 QUADRANTS. SOFT AND TENDER ABDOMEN. NO BM THUS FAR. PT VOIDS PER BATHROOM INDEPENDENTLY. NO REPORTS OF PAIN, NAUSEA, OR VOMITING REPORTED THUS FAR. PT HAS SLEPT A LOT THIS SHIFT. NS INFUSING AT 100ML/HR. PT HAS TOLERATED TAKING ALL ORAL MEDICATIONS TODAY. PT IS CURRENTLY LYING IN BED. CALL LIGHT WITHIN REACH. BED IN LOWEST POSITION. PT HAS REMAINED AFERBILE. VSS. WILL CONTINUE TO MONITOR.
[2020-01-04 19:39] LABS: Adenovirus F 40/41, stool Not Detected (NotDetected); Astrovirus Not Detected (NotDetected); Campylobacter Not Detected (NotDetected); Clostridium Difficile A/B, PCR Not Detected (NotDetected); Cryptosporidium Not Detected (NotDetected); Cyclospora Cayetanesis Not Detected (NotDetected); Entamoeba histolytica Not Detected (NotDetected); Enteroaggregative E coli Not Detected (NotDetected); Enteropathogenic E coli Not Detected (NotDetected); Enterotoxigenic E coli Not Detected (NotDetected); Giardia lamblia Not Detected (NotDetected); Norovirus Not Detected (NotDetected); Plesimonas Shigalloides, PCR Not Detected (NotDetected); Rotavirus A Not Detected (NotDetected); Salmonella, PCR Not Detected (NotDetected); Sapovirus Not Detected (NotDetected); Shiga-like toxin E coli Not Detected (NotDetected); Shigella Enterovasive E coli Not Detected (NotDetected); Vibrio Cholerae Not Detected (NotDetected); Vibrio, PCR Not Detected (NotDetected); Yersinia Entercolitica, PCR Not Detected (NotDetected)
--- NOTE | 2020-01-04 20:16 | PC.NURSE ---
Stool sampled collected per this nurse and Wayne Shahid RN. Sent to lab
[2020-01-05] VITALS (7 sets, daily range): BP systolic 108–128; BP diastolic 53–69; PULSE 53–57; RESP 16–18; TEMP 36.5–36.7; O2SAT 95–99; BMI 26.6; BMI 26.8
--- NOTE | 2020-01-05 03:36 | PC.NURSE ---
Pt has had a restful night this shift. Pt was able to have a BM x1 this shift, sample sent to lab. NO episodes of N/V this shift and pt has not requested any PRN medications. Lung sounds are clear t/o. Hypoactive bowel sounds heard in all 4 quads. Rt AC PIV infiltrated this shift and new 20g PIV was inserted in pt's left hand. Son has remained at bedside t/o this shift. No other acute changes or complaints at this time. Call light remains in reach. Will continue to monitor.
--- NOTE | 2020-01-05 07:32 | SW/DCPLANNER ---
PATIENT ADMITTED TO [facility] IN OBSERVATION AFTER DISCHARGING ON SUNDAY AND COMING BACK ON SUNDAY WITH NAUSEA AND METASTATIC RENAL CARCINOMA... PATIENTS LAST ADMISSION WAS A LENGTHY ONE WITH STAYING HERE FOR 11 DAYS FOR THE SAME DIAGNOSIS... PATIENT IS FROM HOME AND SEES AN ONCOLOGISTS ON A REGULAR BASIS.. WILL FOLLOW PATIENT THROUGH HER ACUTE CARE STAY AND ASSIST WITH ANY DISCHARGE PLANNING THAT IS ORDERED AT THE TIME OF DISPOSITION... D/C UNCERTAIN AT THIS TIME...
--- NOTE | 2020-01-05 09:00 | P.PN_ITS ---
Internal Medicine - PN: Subj *Date: 01/05/20 *Time: 09:00 Interval history: Patient states she did not vomit overnight. She is taking Compazine every 6 hours and has been NPO. Exam Vital signs and Labs for Last 24 Hours: Temp Pulse Resp BP Pulse Ox 97.9 F 53 L 16 115/67 98 01/05/20 07:45 01/05/20 07:45 01/05/20 07:45 01/05/20 07:45 01/05/20 07:45 Laboratory Results - last 24 hr 01/04/20 19:25: Stl Aeromonas (PCR) Not detected, Stl C. cayetanensis PCR Not detected, Stool Rotavirus (PCR) Not detected, Stl Adenov F 40/41 PCR Not detected, Stool Astrovirus (PCR) Not detected, Stool Campylobacter PCR Not detected, Stl C.difficile Tox PCR Not detected, Stool Cryptosporidium PCR Not detected, Stl E.coli Shiga Tox PCR Not detected, Stool E coli O157 PCR Not detected, Stl Enterotoxigenic E PCR Not detected, Stool EPEC (PCR) Not detected, Stool EAEC (PCR) Not detected, Stl E. histolytica PCR Not detected, Stool Giardia Lamblia PCR Not detected, Stool Salmonella PCR Not detected, Stool Sapovirus (PCR) Not detected, Stl P. shigelloides PCR Not detected, Stl Shigella/EIEC PCR Not detected, St Y.enterocolitica PCR Not detected, Stool Vibrio (PCR) Not detected, Stl Vibrio cholerae PCR Not detected, Stl Norovirus GI/GII PCR Not detected I & O for Last 24 hours: Intake & Output 01/02/20 01/03/20 01/04/20 01/05/20 23:59 23:59 23:59 23:59 Intake Total 1000 / 1000 1704 / 1704 1037 / 1037 Output Total 300 / 300 Balance 1000 / 1000 1704 / 1704 737 / 737 Weight 160 lb 155 lb 160 lb - Constitutional no acute distress - *Routine HEENT Exam Eye: Present: EOMI ENT: Present: mucous membranes moist - *Routine Neck Exam Present: supple. Absent: lymphadenopathy - *Routine Respiratory Exam Present: CTA bilaterally - *Routine Cardiovascular Exam Present: RRR - *Routine Abdominal Exam Present: soft, normoactive bowel sounds. Absent: tenderness - *Routine Extremities Exam Absent: cyanosis, clubbing, edema - *Routine Skin Exam Present: warm. Absent: rash - *Routine Neurological Exam Present: alert, oriented X3 Assessment and Plan (1) Intractable vomiting with nausea Status: Acute Category: Medical Code(s): R11.2 - Nausea with vomiting, uns pecified (2) Widespread metastatic malignant neoplastic disease Status: Chronic Category: Medical Code(s): C80.0 - Disseminated malignant neoplasm, unspecified (3) Abdominal pain Status: Acute Category: Medical Code(s): R10.9 - Unspecified abdominal pain (4) Colitis Status: Acute Category: Medical Code(s): K52.9 - Noninfective gastroenteritis and colitis, unspecified (5) Erosive gastritis Status: Acute Category: Medical Code(s): K29.60 - Other gastritis without bleeding (6) Hypokalemia Status: Acute Category: Medical Code(s): E87.6 - Hypokalemia - Assessment and plan all Dx Assessment and Plan for all problems:: Will try a clear liquid diet today and replace potassium
--- NOTE | 2020-01-05 17:54 | PC.NURSE ---
A&OX4. PT HAS TOLERATED ROOM AIR WELL THROUGHOUT SHIFT. RESPIRATIONS REGULAR AND UNLABORED. LUNG SOUNDS BILATERALLY CLEAR. +2 PULSES NOTED THROUGHOUT. HAND SEPARATING MACHINE OPERATOR EQUAL. ACTIVE BOWEL SOUNDS HEARD THROUGHOUT. SOFT AND TENDER ABDOMEN. NO DIARRHEA REPORTED THIS SHIFT. NO NAUSEA REPORTED THIS SHIFT. PAIN REPORTED ONCE THIS MORNING IN HER BACK. RECEIVED SCHEDULED OXYCODONE. PT SEEMS TO BE FEELING A LOT BETTER. SHE HAS BEEN SITTING UP A LOT MORE TODAY AND MORE TALKATIVE. SHE WAS ADVANCED FROM NPO TO CLEAR LIQUID TO FULL LIQUID DIET THIS SHIFT AND TOLERATED IT WELL. PT VOIDS PER BATHROOM INDEPENDENTLY. NO EDEMA NOTED. PT IS CURRENTLY LYING IN BED RESTING. CALL LIGHT WITHIN REACH. VSS. WILL CONTINUE TO MONITOR.
--- NOTE | 2020-01-06 01:34 | PC.NURSE ---
Pt A&OX4 lungs CTA. pt c/o back pain medicated per MAY. no n/v noted this shift. Son at bedside
[2020-01-06 04:26] VITALS: BP 115/66; PULSE 59; RESP 20; TEMP 36.6; O2SAT 95
[2020-01-06 07:03] VITALS: BMI 26.6
[2020-01-06 07:20] LABS: Chloride 104 mmol/L (98-107); Potassium 4.4 mmoL/L (3.5-5.1); Sodium 135 mmol/L (136-145)
[2020-01-06 07:23] LABS: Anion Gap 6.4 mEq/L (5-15); Blood Urea Nitrogen 8 mg/dl (7-17); Calcium 8.2 mg/dl (8.4-10.2); Carbon Dioxide 29 mmol/L (22.0-30.0); Creatinine Clearance Estimated 103 mL/min (50-200); Estimated Glomerular Filt Rate 87 ml/min (>60); GFR (African American) 105 ML/MIN (>60); Glucose 139 mg/dl (74-100)
[2020-01-06 07:45] VITALS: BP 118/75; PULSE 60; RESP 19; TEMP 36.7; O2SAT 97
[2020-01-06 07:59] LABS: Basophils % 0.3 % (0.1-2.0); Eosinophils # 0.1 K/mm3 (0.0-0.4); Hematocrit 36.9 % (37.0-47.0); Hemoglobin 11.4 g/dL (12.2-16.2); Lymphocytes % 12.9 % (10-50); Mean Corpuscular HGB Conc 30.8 g/dL (31.8-35.4); Mean Corpuscular Hemoglobin 26.8 pg (27.0-31.2); Mean Corpuscular Volume 86.8 fl (81-99); Mean Platelet Volume 7.2 fl (7.4-10.4); Monocytes # 0.4 K/mm3 (0.1-1.0); Neutrophils # 6.1 K/mm3 (1.8-7.8); Neutrophils % 80.8 % (37.0-80.0); Platelet Count 335 K/mm3 (142-424); Red Blood Count 4.25 M/mm3 (4.20-5.40); White Blood Count 7.6 K/mm3 (4.8-10.8)
--- NOTE | 2020-01-06 08:46 | HMH.ACPN2 ---
Internal Medicine - PN: Subj *Date: 01/06/20 *Time: 08:46 Interval history: Pt with no new complaints today. She tolerated full liquids last night for supper. Exam Vital signs and Labs for Last 24 Hours: Temp Pulse Resp BP Pulse Ox 98.0 F 60 19 118/75 97 01/06/20 07:45 01/06/20 07:45 01/06/20 07:45 01/06/20 07:45 01/06/20 07:45 Laboratory Results - last 24 hr 01/06/20 06:55: WBC 7.6, RBC 4.25, Hgb 11.4 L, Hct 36.9 L, MCV 86.8, MCH 26.8 L, MCHC 30.8 L, RDW 14.0, Plt Count 335, MPV 7.2 L, Neut % (Auto) 80.8 H, Lymph % (Auto) 12.9, Tucker % (Auto) 5.0, Eos % (Auto) 1.0, Baso % (Auto) 0.3, Neut # (Auto) 6.1, Lymph # (Auto) 1.0, Tucker # (Auto) 0.4, Eos # (Auto) 0.1, Baso # (Auto) 0.0 01/06/20 06:55: Sodium 135 L, Potassium 4.4 D, Chloride 104, Carbon Dioxide 29, Anion Gap 6.4, BUN 8 D, Creatinine 0.70, Estimated Creat Clear 103, Estimated GFR 87, Est GFR ( Amer) 105, Glucose 139 H, Calcium 8.2 L Vital Signs - 24 hr 01/05/20 16:00 01/05/20 19:39 01/05/20 20:00 Temperature 98.0 F 97.7 F Pulse Rate [Left Radial] 53 L 55 L Respiratory Rate 18 16 Blood Pressure [Left Arm] 109/68 L 114/56 L 02 Sat by Pulse Oximetry 97 95 95 01/05/20 21:14 01/06/20 04:26 01/06/20 07:45 Temperature 97.8 F 98.0 F Pulse Rate [Left Radial] 57 L 59 L 60 Respiratory Rate 20 19 Blood Pressure [Left Arm] 128/69 115/66 118/75 02 Sat by Pulse Oximetry 95 97 I & O for Last 24 hours: Intake & Output 10/06/1901/04/20 01/05/20 01/06/20 23:59 23:59 23:59 23:59 Intake Total 1000 / 1000 1704 / 1704 1742 / 1742 1033 / 1033 Output Total 1550 / 1550 Balance 1000 / 1000 1704 / 1704 192 / 192 1033 / 1033 Weight 160 lb 155 lb 160 lb 14.999 oz 160 lb - Constitutional no acute distress - *Routine HEENT Exam Head: Present: normocephalic Eye: Present: EOMI, PERRL ENT: Present: mucous membranes moist - *Routine Neck Exam Present: supple. Absent: lymphadenopathy - *Routine Respiratory Exam Present: CTA bilaterally - *Routine Cardiovascular Exam Present: RRR - *Routine Abdominal Exam Present: soft, normoactive bowel sounds. Absent: tenderness - *Routine Extremities Exam Absent: cyanosis, clubbing, edema - *Routine Skin Exam Present: warm. Absent: rash - *Routine Neurological Exam Present: alert, oriented X3 Assessment and Plan (1) Intractable vomiting with nausea Status: Acute Category: Medical Code(s): R11.2 - Nausea with vomiting, unspecified (2) Widespread metastatic malignant neoplastic disease Status: Chronic Category: Medical Code(s): C80.0 - Disseminated malignant neoplasm, unspecified (3) Abdominal pain Status: Acute Category: Medical Code(s): R10.9 - Unspecified abdominal pain (4) Colitis Status: Acute Category: Medical Code(s): K52.9 - Noninfective gastroenteritis and colitis, unspecified (5) Erosive gastritis Status: Acute Category: Medical Code(s): K29.60 - Other gastritis without bleeding (6) Hypokalemia Status: Acute Category: Medical Code(s): E87.6 - Hypokalemia - Assessment and plan all Dx Assessment and Plan for all problems:: Patient is improving. Plan to saline lock IVF and advance diet today.
--- NOTE | 2020-01-06 13:56 | PC.NURSE ---
Pt alert and oriented x 4. RR even and unlabored. Has rested this shift. has had no c/o. Denies pain/distress. Denies nausea a this time and has tolerated reg diet for lunch. Lungs cta, bs x 4. Mx continues. VSS at this time. CB in reach.
[2020-01-06 16:00] VITALS: BP 122/70; PULSE 60; RESP 17; TEMP 36.7; O2SAT 96
--- NOTE | 2020-01-06 19:03 | PC.NURSE ---
No acute changes this evening. No emesis or loose stools. CB in reach.
[2020-01-06 19:44] VITALS: BP 114/70; PULSE 65; RESP 18; TEMP 36.6; O2SAT 98
--- NOTE | 2020-01-07 02:25 | PC.NURSE ---
Pt is alert and oriented x4. No acute changes noted from previous shift. PERRLA. Cap refill < 3 seconds. Bilateral hand tank washer noted equal and strong. Pt has rested well with eyes closed this shift with no new complaints. At beginning of shift pt reported nausea. States her daughter had brought her a chocolate milkshake that did not seem to settle well with her stomach. Administered Zofran per MAY. Upon reassessment pt states adequate relief of nausea. Denies BM thus far this shift. Amb independently in room and to bathroom. Urine noted clear and bright yellow. Bilateral lungs noted clear t/o upon auscultation. Tolerated RA well. Denies abd pain upon palpation. Denies emesis this shift thus far. Active bowel sounds noted in all 4 quads. No edema noted. Refused TEDS. VSS. Remains safe. Call light within reach. Will continue to monitor. Son remains at bedside.
[2020-01-07 03:36] VITALS: BP 99/51; PULSE 55; RESP 20; TEMP 36.7; O2SAT 96
[2020-01-07 05:00] VITALS: BMI 26.3
[2020-01-07 08:00] VITALS: BP 105/62; PULSE 56; RESP 18; TEMP 36.7; O2SAT 95
--- NOTE | 2020-01-07 08:13 | P.PN_ITS ---
Internal Medicine - PN: Subj *Date: 01/07/20 *Time: 08:13 Interval history: Patient feels better today, has not vomited during this admission Exam Vital signs and Labs for Last 24 Hours: Temp Pulse Resp BP Pulse Ox 98.1 F 55 L 20 99/51 L 96 01/07/20 03:36 01/07/20 03:36 01/07/20 03:36 01/07/20 03:36 01/07/20 03:36 I & O for Last 24 hours: Intake & Output 01/04/20 01/05/20 01/06/20 01/07/20 23:59 23:59 23:59 23:59 Intake Total 1704 / 1704 1742 / 1742 1393 / 1393 Output Total 1550 / 1550 2600 / 2600 600 / 600 Balance 1704 / 1704 192 / 192 -1207 / -1207 -580 / -580 Weight 155 lb 160 lb 14.999 oz 160 lb 158 lb - Constitutional no acute distress - *Routine HEENT Exam Head: Present: normocephalic Eye: Present: EOMI, PERRL ENT: Present: mucous membranes moist - *Routine Neck Exam Present: supple. Absent: lymphadenopathy - *Routine Respiratory Exam Present: CTA bilaterally - *Routine Cardiovascular Exam Present: RRR - *Routine Abdominal Exam Present: soft, normoactive bowel sounds. Absent: tenderness - *Routine Extremities Exam Absent: cyanosis, clubbing, edema - *Routine Skin Exam Present: warm. Absent: rash - *Routine Neurological Exam Present: alert, oriented X3 Assessment and Plan (1) Intractable vomiting with nausea Status: Acute Category: Medical Code(s): R11.2 - Nausea with vomiting, unspecified (2) Widespread metastatic malignant neoplastic disease Status: Chronic Category: Medical Code(s): C80.0 - Disseminated malignant ne oplasm, unspecified (3) Abdominal pain Status: Acute Category: Medical Code(s): R10.9 - Unspecified abdominal pain (4) Colitis Status: Acute Category: Medical Code(s): K52.9 - Noninfective gastroenteritis and colitis, unspecified (5) Erosive gastritis Status: Acute Category: Medical Code(s): K29.60 - Other gastritis without bleeding (6) Hypokalemia Status: Acute Category: Medical Code(s): E87.6 - Hypokalemia - Assessment and plan all Dx Assessment and Plan for all problems:: Plan discharge home today. Pt to take Compazine prior to eating meals, office f/u in 6 days.
--- NOTE | 2020-01-09 07:32 | HMH.DCSUM ---
General - General Admission date:: 01/04/20 Discharge date: 01/07/20 HPI HPI: This 54-year-old female has a history of hypothyroidism hypertension hyperlipidemia and metastatic renal cell carcinoma. She is followed by Dr. Abreu, oncology and by Dr. Daniels for pain management. She was hospitalized at [facility] and discharged on 01/02/2020. She returned to the emergency room on 01/03/2020 with recurrent intractable vomiting. She was then readmitted. She was receiving chemotherapy every 3 weeks. She was seeing pain management every 2 weeks. She had a morphine pump along with a fentanyl patch and was taking oxycodone as well. At the previous hospitalization she had intractable nausea and vomiting. Her urinary output had decreased. Phenergan did not controll her symptoms Hospital Course Hospital Course: Patient on admission did receive IV fluid bolus and then was started on maintenance fluids with potassium due to hypokalemia. She was restarted back on her dexamethasone. Initially patient was n.p.o. and was taking Compazine every 6 hours. Clear liquids were initiated and gradually advanced to a regular diet which she tolerated. IV was eventually saline locked. Potassium normalized. She was voiding QS. On 01/07/2020 patient was feeling better. She had not vomited during this admission. She was thus discharged to home in stable and satisfactory condition. She was to continue with Compazine prior to eating her meals. She was to follow-up with Dr. Toro in 6 days. Medications as per medication reconciliation sheet. Objective Vital signs: Temp Pulse Resp BP Pulse Ox 98.1 F 56 L 18 105/62 L 95 01/07/20 08:00 01/07/20 08:00 01/07/20 08:00 01/07/20 08:00 01/07/20 08:00 Narrative: Exam Vital signs and Labs for Last 24 Hours: Temp Pulse Resp BP Pulse Ox 98.1 F 55 L 20 99/51 L 96 01/07/20 03:36 01/07/20 03:36 01/07/20 03:36 01/07/20 03:36 01/07/20 03:36 I & O for Last 24 hours: Intake & Output 01/04/20 01/05/20 01/06/20 01/07/20 23:59 23:59 23:59 23:59 Intake Total 1704 / 1704 1742 / 1742 1393 / 1393 Output Total 1550 / 1550 2600 / 2600 600 / 600 Balance 1704 / 1704 192 / 192 -1207 / -1207 -580 / -580 Weight 155 lb 160 lb 14.999 oz 160 lb 158 lb - Constitutional no acute distress - *Routine HEENT Exam Head: Present: normocephalic Eye: Present: EOMI, PERRL ENT: Present: mucous membranes moist - *Routine Neck Exam Present: supple. Absent: lymphadenopathy - *Routine Respiratory Exam Present: CTA bilaterally - *Routine Cardiovascular Exam Present: RRR - *Routine Abdominal Exam Present: soft, normoactive bowel sounds. Absent: tenderness - *Routine Extremities Exam Absent: cyanosis, clubbing, edema - *Routine Skin Exam Present: warm. Absent: rash - *Routine Neurological Exam Present: alert, oriented X3 Results Completed studies during hospitalization [Text1]: 01/03/2020 CT of abdomen/pelvis IMPRESSION: Overall no significant change in the left renal mass and low-density changes of the liver consistent with treated hepatic metastasis Scattered air-fluid levels within the large bowel which may be seen with diarrhea disease/colitis Mild thickening of the gastric wall which may be seen with gastritis. DS: Diagnosis - Discharge Diagnosis (1) Intractable vomiting with nausea Status: Acute (2) Widespread metastatic malignant neoplastic disease Status: Chronic (3) Abdominal pain Status: Acute (4) Colitis Status: Acute (5) Erosive gastritis Status: Acute (6) Hypokalemia Status: Acute Discharge Plan - Patient Discharge Instructions ACTIVITY: Continue current activity Patient Instructions: DI for Nausea -- Adult - Follow up Plan Follow up with: Guillaume Toro MD [Primary Care Provider] - 01/13/20 (Dr Toro 01/13/20 11:15a) Disposition: Home, Self-[facility]
== END 2020-01-07 13:30 | disposition home or self-care (01) ==
LOC: ER 23:38 → 2ND 23:47
PROVIDERS: Admitting Provider Family Medicine; Emergency Provider Emergency Medicine; PCP Family Medicine; Visit Provider Family Medicine
DX: R11.2 Nausea with vomiting, unspecified (principal); K29.60 Other gastritis without bleeding; E03.9 Hypothyroidism, unspecified; I11.0 Hypertensive heart disease with heart failure; I50.9 Heart failure, unspecified; C78.00 Secondary malignant neoplasm of unspecified lung; C78.7 Secondary malignant neoplasm of liver and intrahepatic bile duct; Z77.9 Other contact with and (suspected) exposures hazardous to health; M47.896 Other spondylosis, lumbar region; Z87.891 Personal history of nicotine dependence; Z79.899 Other long term (current) drug therapy
CPT/HCPCS: 36415; 74176; 80048; 80053; 82150; 83690; 85025; 85651; 86140; 86328; 87507; 96365; 96375; 99284; G0378; J2405

== ENCOUNTER 2020-01-15 11:28 | Outpatient (CLI) | payer MEDICARE, SELFPAY ==
[2020-01-15 11:45] VITALS: BP 146/86; PULSE 90; RESP 18
[2020-01-15 12:48] VITALS: BP 140/81; PULSE 88; RESP 18
== END 2020-01-15 12:52 | disposition home or self-care (01) ==
LOC: INF 11:28
PROVIDERS: PCP Family Medicine; Visit Provider Internal Medicine Medical Oncology
DX: C64.9 Malignant neoplasm of unspecified kidney, except renal pelvis (principal); C80.0 Disseminated malignant neoplasm, unspecified
CPT/HCPCS: 96360; 96375

== ENCOUNTER 2020-01-16 10:20 | Outpatient (CLI) | payer MEDICARE, SELFPAY ==
[2020-01-16 10:40] VITALS: BP 147/95; PULSE 81; RESP 18; TEMP 36.4; O2SAT 98
[2020-01-16 11:40] VITALS: BP 132/85; PULSE 71; RESP 18; O2SAT 99
[2020-01-16 11:53] VITALS: BMI 25.4
--- NOTE | 2020-01-16 11:54 | XR_ITS ---
PROCEDURE: XR CHEST 2V CLINICAL HISTORY: prior to chemo Stage IV cancer COMPARISON: CR CXR2V XR chest 2V from 07/29/2017 CR CXR1VP XR chest portable from 10/26/[address] CHEST W CON from 11/17/2019 CR XR CHEST PORTABLE from 11/20/2019 FINDINGS: Small heart size. There is mild prominence of the mediastinum but does appear somewhat improved compared to the previous exam. Left lower lobe atelectatic changes are improved. No lobar consolidation or collapse. No acute bony findings. The lungs are clear without infiltrates, suspicious nodules, or pleural effusions. No acute bony abnormalities. IMPRESSION: Persistent but improvement in the prominent mediastinum suggesting improvement in mediastinal adenopathy. Dictated by: Brian Mayers MD 01/16/2020 15:43 Brian Mayers MD in [place] 01/16/2020 15:43
== END 2020-01-16 12:20 | disposition home or self-care (01) ==
LOC: INF 10:24
PROVIDERS: Visit Provider Internal Medicine Medical Oncology
DX: K52.9 Noninfective gastroenteritis and colitis, unspecified (principal)
CPT/HCPCS: 71046; 86580; 96360; 96375

== ENCOUNTER 2020-01-19 10:00 | Outpatient (CLI) | payer OTHER, SELFPAY ==
[2020-01-19 10:25] VITALS: BP 131/78; PULSE 68; RESP 18; O2SAT 99
[2020-01-19 11:30] VITALS: BP 146/77; PULSE 56; RESP 18
== END 2020-01-19 11:30 | disposition home or self-care (01) ==
LOC: INF 10:10
PROVIDERS: Visit Provider Internal Medicine Medical Oncology
DX: C64.9 Malignant neoplasm of unspecified kidney, except renal pelvis (principal); C80.0 Disseminated malignant neoplasm, unspecified
CPT/HCPCS: 96360

== ENCOUNTER → 2020-01-29 12:04 | Outpatient (POV) | payer MEDICARE, SELFPAY ==
[2020-01-29 12:19] VITALS: BP 125/87; PULSE 85; RESP 18; O2SAT 98; BMI 26.6
--- NOTE | 2020-01-29 12:37 | HMH.PAINSOAP ---
[facility] Pain Management SOAP Note Subjective:: Patient is a 54-year-old white female who presents today for follow-up. Patient was recently hospitalized for severe nausea vomiting and dehydration. She has been treated with us for metastatic renal cell carcinoma and increased low back pain. The patient does have an intrathecal pain pump. She felt that she was not tolerating the medication in the pump and as a result the medication was stopped in the pump. She was getting bupivacaine at that time. Patient has since started to being treated with fentanyl Duragesic patch 12 mcg an hour every 72 hours as well as oxycodone 10 mg 1 tablet p.o. twice daily. She is tolerating these medications without any side effects. She says she is doing well overall. She does rate her pain a 2 out of 10. Patient says that while in the hospital, it was thought that her immunosuppressive therapy was the culprit of her nausea vomiting and dehydration. She has since stopped taking her treatments and is currently getting prednisone. Review of Systems General: No recent weight changes, no fever, no sleep disturbances Respiratory: No cough, no shortness of air, no recurring pulmonary infections Cardiovascular/peripheral vascular: No chest pain, no palpitations, no edema, no shortness of breath Gastrointestinal: No new onset incontinence, normal bowel movements reported Genitourinary: No new onset incontinence Musculoskeletal: Intermittent low back pain Psychiatric: Normal mood/affect Neurological: [Denies weakness in extremities], [denies balance issues] Objective:: Physical exam General: Alert and oriented x3, no acute distress, pleasant and cooperative, [on room air] Lungs: Respirations even and unlabored, symmetrical chest expansion Eyes: PERRL Musculoskeletal: Flexion and extension of lumbar spine somewhat guarded secondary to pain, deep tendon reflexes normal, strength in upper and lower extremities [5/5], [abnormal gait noted] Neurological: Speech clear, survey research professor equal, no gross sensory deficit Assessment:: Metastatic renal cell carcinoma with increasing back pain Plan:: We will continue the patient on her fentanyl Duragesic patch 12 mcg an hour every 72 hours and her oxycodone 10 mg 1 tablet p.o. twice daily. Patient did have these medications filled on January 22. She not did discuss that she will need to contact the clinic ahead of time for refills on the medication. We will plan to see her back in a month to reassess her symptoms and determine if the medication is still working well for her pain. The patient has been instructed to contact the clinic if she has any concerns before her next appointment. The patient and I specifically discussed risk factors for COVID19. These risks include, but are not limited to age greater than 60, heart or lung disease, diabetes, immunosuppression, and travel. We also discussed NSAIDs may worsen COVID19 infection or symptoms. Patient should not use NSAIDs to treat COVID19 signs or symptoms. Patient was also informed that any type of corticosteroid of any form (oral or injection) will decrease the patient's immune system response and may increase the likelihood of COVID19 infection and symptoms[address] Dr. Daniels has reviewed this note and agrees with this plan of care. This note was dictated using voice recognition software and make contain errors or omissions. [facility] History I have reviewed the patient's past medical history: Yes Medical History: Reports:: Cancer, Congestive Heart Failure, Hyperlipidemia, Hypertension Denies:: Coronary Artery Disease, Diabetes Mellitus Type 1, Diabetes Mellitus Type 2, Internal Pacemaker, MRSA, Seizures *Have you ever received a pneumonia vaccine?: Yes *Have you received a flu vaccine this season?: Yes Other Medical History: Reports: Anemia, Blood Transfusion Reaction, Chemotherapy, Hormone Therapy, Hypothyroidism, Radiation Therapy, Thyroid Disease Laterality Cases: Left: Breast Bio
== END ==
PROVIDERS: PCP Family Medicine; Visit Provider Clinical Nurse Specialist Family Health
DX: C64.9 Malignant neoplasm of unspecified kidney, except renal pelvis (principal); M54.9 Dorsalgia, unspecified
CPT/HCPCS: 99212

== ENCOUNTER 2020-02-12 09:17 | Outpatient (CLI) | payer MEDICARE, SELFPAY ==
[2020-02-12 09:24] VITALS: BMI 27.1
[2020-02-12 09:42] LABS: Basophils % 0.2 % (0.1-2.0); Eosinophils % 0.2 % (0.1-12.0); Hematocrit 39.7 % (37.0-47.0); Hemoglobin 11.9 g/dL (12.2-16.2); Lymphocytes # 0.9 K/mm3 (0.7-4.5); Lymphocytes % 10.2 % (10-50); Mean Corpuscular HGB Conc 29.8 g/dL (31.8-35.4); Mean Corpuscular Hemoglobin 27.5 pg (27.0-31.2); Mean Corpuscular Volume 92.2 fl (81-99); Mean Platelet Volume 6.9 fl (7.4-10.4); Monocytes # 0.3 K/mm3 (0.1-1.0); Monocytes % 2.9 % (1.7-9.3); Neutrophils # 7.4 K/mm3 (1.8-7.8); Neutrophils % 86.5 % (37.0-80.0); Platelet Count 282 K/mm3 (142-424); Red Blood Count 4.31 M/mm3 (4.20-5.40); Red Cell Distribution Width 15.5 % (11.5-17.5); White Blood Count 8.6 K/mm3 (4.8-10.8)
[2020-02-12 09:58] LABS: Chloride 102 mmol/L (98-107)
[2020-02-12 09:59] LABS: Potassium 4.6 mmoL/L (3.5-5.1); Sodium 137 mmol/L (136-145)
[2020-02-12 10:00] LABS: MANUAL DIFFERENTIAL MANUAL DIFFERENTIAL (MANUAL DIFF)
[2020-02-12 10:01] LABS: Alanine Aminotransferase 25 U/L (12-78); Alkaline Phosphatase 78 U/L (38-126); Anion Gap 9.6 mEq/L (5-15); Aspartate Amino Transferase 22 U/L (14-36); Bilirubin,Total 0.5 mg/dl (0.2-1.3); Blood Urea Nitrogen 28 mg/dl (7-17); Carbon Dioxide 30 mmol/L (22.0-30.0); Creatinine Clearance Estimated 92 mL/min (50-200); Estimated Glomerular Filt Rate 74 ml/min (>60); GFR (African American) 90 ML/MIN (>60)
[2020-02-12 10:02] LABS: Albumin Level 4.2 g/dl (3.5-5.0); Albumin/Globulin Ratio 1.5 (1.1-1.8); Calcium 9.3 mg/dl (8.4-10.2); Globulin 2.8 g/dL (1.3-3.2); Glucose 152 mg/dl (74-100)
[2020-02-12 10:14] LABS: Eosinophils % 1 % (0-3); Lymphocytes % 13 % (10-50); Monocytes % 2 % (2-9); Neutrophils % 84 % (42-76); Total Cells Counted 100
[2020-02-12 10:15] LABS: Hypochromasia 1+; Platelet Estimate Normal
[2020-02-12 10:32] LABS: Thyroid Stimulating Hormone 1.07 uIU/mL (0.465-4.68)
--- NOTE | 2020-02-12 10:38 | PC.NURSE ---
02/12/20-pt here for lab draw. venous access obtained via butterfly needle to pt's rt ac, blood obtained for labs as ordered per md, specimens sent to lab for analysis. secured venipuncture site using 2x2 gauze and coban. pt ok to d/c home and will f/u with md for next scheduled appt.
== END 2020-02-12 09:35 | disposition home or self-care (01) ==
LOC: INF 09:17
PROVIDERS: Visit Provider Internal Medicine Medical Oncology
DX: C64.9 Malignant neoplasm of unspecified kidney, except renal pelvis (principal); C80.0 Disseminated malignant neoplasm, unspecified; Z79.899 Other long term (current) drug therapy
CPT/HCPCS: 80053; 84443; 85007; 85025

== ENCOUNTER → 2020-03-04 13:22 | Outpatient (POV) | payer MEDICARE, SELFPAY ==
--- NOTE | 2020-03-04 13:39 | HMH.PAINSOAP ---
[facility] Pain Management SOAP Note Subjective:: Patient is a 54-year-old white female who presents today for follow-up. She has been treated for metastatic renal cell carcinoma with increased back pain. The patient is managed with oral medications as well as boluses from her intrathecal pump. Patient has tried intrathecal therapy without medications orally or topically. Unfortunately, she did not do well he was discharged As a result, patient was placed back on oral and topical medications. Patient is managed with fentanyl Duragesic patch 12 mcg an hour, gabapentin 100 mg 1 tablet p.o. 3 times daily, and oxycodone 10 mg 1 tablet p.o. twice daily. She is also been taking her boluses with her intrathecal pain pump. She says this is also the beneficial for her pain. Patient rates her pain a 0 out of 10 today. She says this is the best she has felt since having her diagnosis of cancer. Review of Systems General: No recent weight changes, no fever, no sleep disturbances Respiratory: No cough, no shortness of air, no recurring pulmonary infections Cardiovascular/peripheral vascular: No chest pain, no palpitations, no edema, no shortness of breath Gastrointestinal: No new onset incontinence, normal bowel movements reported Genitourinary: No new onset incontinence Musculoskeletal: Chronic low back pain Psychiatric: Normal mood/affect Neurological: [Denies weakness in extremities], [denies balance issues] Objective:: Physical exam General: Alert and oriented x3, no acute distress, pleasant and cooperative, [on room air] Lungs: Respirations even and unlabored, symmetrical chest expansion Eyes: PERRL Musculoskeletal: Flexion and extension of lumbar spine somewhat guarded secondary to pain, deep tendon reflexes normal, strength in upper and lower extremities [5/5], [abnormal gait noted] Neurological: Speech clear, home theater specialist equal, no gross sensory deficit Assessment:: Metastatic renal cell carcinoma with increased back pain Plan:: Patient is doing well overall today. Her pain is a 0 out of 10. She is continuing with boluses in her intrathecal pump with bupivacaine. She will need a refill appointment for the first week of May for her intrathecal therapy. We will also refill the patient's fentanyl Duragesic patch 12 mcg an hour, gabapentin 100 mg 1 tablet p.o. 3 times daily, and oxycodone 10 mg 1 tablet p.o. 2 times daily. We will give the patient 3 months worth of medication. Patient has been prescribed a controlled substance after being counseled on the medication, medication safety, and possible side effects. EDGAR report has been obtained and reviewed prior to prescription and found to be appropriate. Opioid contract was reviewed and signed by the patient, and that they have agreed to all of the terms set forth by our compliance program.Her Edgar #[id number] has been reviewed and is appropriate. Her morphine equivalent is 59. Drug screens have been appropriate. Patient has been instructed to contact clinic if she has any concerns before her next appointment. [facility] History I have reviewed the patient's past medical history: Yes Medical History: Reports:: Cancer, Congestive Heart Failure, Hyperlipidemia, Hypertension Denies:: Coronary Artery Disease, Diabetes Mellitus Type 1, Diabetes Mellitus Type 2, Internal Pacemaker, MRSA, Seizures *Have you ever received a pneumonia vaccine?: No *Have you received a flu vaccine this season?: Yes Other Medical History: Reports: Anemia, Blood Transfusion Reaction, Chemotherapy, Hormone Therapy, Hypothyroidism, Radiation Therapy, Thyroid Disease Laterality Cases: Left: Breast Biopsy, Right: Carpal Tunnel Release Other Surgeries: Yes: Cancer Surgery (renal biopsy, lt axillary node bx), , Hysterectomy-Total, Other (renal biopsy; lt axillary node biopsy). No: Pacemaker Amputation: No Fractures: No - *Social History Smoking Status: Former smoker Tobacco Type: cigarettes # Packs/Day (ciga
[2020-03-04 13:43] VITALS: BP 136/88; PULSE 79; RESP 18; TEMP 36.3; O2SAT 98; BMI 28.3
== END ==
PROVIDERS: PCP Family Medicine; Visit Provider Clinical Nurse Specialist Family Health
DX: C64.9 Malignant neoplasm of unspecified kidney, except renal pelvis (principal); M54.9 Dorsalgia, unspecified
CPT/HCPCS: 99212

== ENCOUNTER → 2020-03-08 08:38 | Outpatient (CLI) | payer MEDICARE, SELFPAY ==
--- NOTE | 2020-03-08 | CT_ITS ---
PROCEDURE: CT ABDOMEN PELVIS W CON CLINICAL INDICATION: renal cell cancer Follow-up renal cell cancer COMPARISON: CT CT ABDOMEN PELVIS W CON from 12/22/[address] ABDOMEN PELVIS WO CON from 01/03/2020 TECHNIQUE: IV Contrast: 75ML Isovue 370 Oral Contrast None Axial images obtained with sagittal and coronal reformats. All CT scans at the facility use one or more dose reduction, viz: automated exposure control, ma/kV adjustment per patient size (including targeted exams where dose is matched to indication, i.e. head), or iterative reconstruction technique. FINDINGS: There is a subtle hypodensity in the anterior segment of the right hepatic lobe measuring 6 mm not significantly changed. Additional hypodense lesion in the right hepatic lobe anteriorly and more inferior is once again noted not significantly changed measuring approximately 2 cm. Tiny subcapsular hypodensity present just inferior to this with an associated calcification unchanged. Complex left renal mass is noted along the upper pole of the left kidney which measures 4.3 cm is unchanged. There is an atrophic appearing left kidney. The adrenal glands, right kidney, and spleen have an unremarkable appearance. There is pancreatic atrophy. There is a mild amount of retained colonic feces. No intestinal obstruction or free there has been a prior hysterectomy. There is degenerative disc disease at L5-S1. No bony destructive process is evident. No intestinal IMPRESSION: Overall stable CT appearance of the abdomen and pelvis. No change in the left renal mass consistent with renal cell carcinoma with treated hepatic metastasis Dictated by: Brian Mayers MD 03/11/2020 11:25 Brian Mayers MD in [place] 03/11/2020 11:25
--- NOTE | 2020-03-08 | CT_ITS ---
PROCEDURE: CT CHEST W CON CLINCAL INDICATION: renal cell cancer f/u Follow-up metastatic disease COMPARISON: CT CT CHEST W CON from 11/17/[address] ABDOMEN PELVIS WO CON from 01/03/2020 TECHNIQUE: IV Contrast: 75ml Isovue 370 Axial images obtained with sagittal and coronal reformats. All CT scans at the facility use one or more dose reduction, viz: automated exposure control, ma/kV adjustment per patient size (including targeted exams where dose is matched to indication, i.e. head), or iterative reconstruction technique. FINDINGS: Supraclavicular adenopathy is probably not significantly changed. Left axillary adenopathy has improved with the largest node in the left axilla previously measuring 3.5 x 1.9 cm now measuring 2.1 by 1.3 cm. Mediastinal adenopathy may be slightly less bulky. AP window node measures 2.2 x 1.9 cm previously 2.6 x 2.2 cm. Left hilar node measures 2.5 cm previously 3.5 cm. No lobar consolidation. No pulmonary parenchymal abnormalities apparent There is scarring in the right upper lobe with chronic volume loss unchanged. Scarring is also present in the lingula unchanged. There are degenerative changes with endplate sclerosis in the thoracic spine. IMPRESSION: For the most part the adenopathy has improved in the left axilla mediastinum and left hilum. Supraclavicular adenopathy is unchanged Dictated by: Brian Mayers MD 03/09/2020 14:00 Brian Mayers MD in [place] 03/09/2020 14:00
[2020-03-08 09:01] LABS: Basophils # 0.1 K/mm3 (0-0.2); Eosinophils # 0.2 K/mm3 (0.0-0.4); Eosinophils % 2.3 % (0.1-12.0); Hematocrit 36.4 % (37.0-47.0); Hemoglobin 12.1 g/dL (12.2-16.2); Lymphocytes # 1.4 K/mm3 (0.7-4.5); Lymphocytes % 18.2 % (10-50); Mean Corpuscular HGB Conc 33.3 g/dL (31.8-35.4); Mean Corpuscular Hemoglobin 29.4 pg (27.0-31.2); Mean Corpuscular Volume 88.3 fl (81-99); Mean Platelet Volume 7.4 fl (7.4-10.4); Monocytes # 0.5 K/mm3 (0.1-1.0); Monocytes % 7.1 % (1.7-9.3); Neutrophils # 5.4 K/mm3 (1.8-7.8); Neutrophils % 71.4 % (37.0-80.0); Platelet Count 355 K/mm3 (142-424); Red Blood Count 4.12 M/mm3 (4.20-5.40); White Blood Count 7.6 K/mm3 (4.8-10.8)
[2020-03-08 09:06] LABS: Chloride 101 mmol/L (98-107); Sodium 137 mmol/L (136-145)
[2020-03-08 09:07] LABS: Potassium 4.4 mmoL/L (3.5-5.1)
[2020-03-08 09:09] LABS: Alanine Aminotransferase 23 U/L (12-78); Alkaline Phosphatase 97 U/L (38-126); Aspartate Amino Transferase 25 U/L (14-36); Bilirubin,Total 0.4 mg/dl (0.2-1.3); Blood Urea Nitrogen 19 mg/dl (7-17); Estimated Glomerular Filt Rate 65 ml/min (>60); GFR (African American) 78 ML/MIN (>60)
[2020-03-08 09:10] LABS: Albumin Level 4.1 g/dl (3.5-5.0); Albumin/Globulin Ratio 1.4 (1.1-1.8); Anion Gap 10.4 mEq/L (5-15); Calcium 9.2 mg/dl (8.4-10.2); Carbon Dioxide 30 mmol/L (22.0-30.0); Globulin 2.9 g/dL (1.3-3.2); Glucose 124 mg/dl (74-100)
== END ==
PROVIDERS: PCP Family Medicine; Visit Provider Internal Medicine Medical Oncology
DX: C64.9 Malignant neoplasm of unspecified kidney, except renal pelvis (principal); C80.0 Disseminated malignant neoplasm, unspecified
CPT/HCPCS: 36415; 71260; 74177; 80053; 85025; Q9967

== ENCOUNTER → 2020-04-16 12:17 | Outpatient (CLI) | payer MEDICARE, SELFPAY ==
[2020-04-16 12:19] VITALS: BMI 28.3
[2020-04-16 12:29] LABS: Basophils # 0.1 K/mm3 (0-0.2); Basophils % 0.8 % (0.1-2.0); Eosinophils # 0.3 K/mm3 (0.0-0.4); Eosinophils % 3.9 % (0.1-12.0); Hematocrit 38.8 % (37.0-47.0); Hemoglobin 12.2 g/dL (12.2-16.2); Lymphocytes # 1.7 K/mm3 (0.7-4.5); Lymphocytes % 19.8 % (10-50); Mean Corpuscular HGB Conc 31.4 g/dL (31.8-35.4); Mean Corpuscular Hemoglobin 28.4 pg (27.0-31.2); Mean Corpuscular Volume 90.3 fl (81-99); Mean Platelet Volume 7.7 fl (7.4-10.4); Monocytes # 0.6 K/mm3 (0.1-1.0); Monocytes % 6.4 % (1.7-9.3); Neutrophils # 6.1 K/mm3 (1.8-7.8); Neutrophils % 69.1 % (37.0-80.0); Platelet Count 312 K/mm3 (142-424); Red Blood Count 4.29 M/mm3 (4.20-5.40); Red Cell Distribution Width 15.2 % (11.5-17.5); White Blood Count 8.8 K/mm3 (4.8-10.8)
[2020-04-16 12:46] LABS: Chloride 103 mmol/L (98-107); Potassium 3.7 mmoL/L (3.5-5.1); Sodium 138 mmol/L (136-145)
[2020-04-16 12:49] LABS: Alanine Aminotransferase 15 U/L (12-78); Albumin Level 4.2 g/dl (3.5-5.0); Albumin/Globulin Ratio 1.4 (1.1-1.8); Alkaline Phosphatase 79 U/L (38-126); Anion Gap 8.7 mEq/L (5-15); Aspartate Amino Transferase 26 U/L (14-36); Bilirubin,Total 0.5 mg/dl (0.2-1.3); Blood Urea Nitrogen 19 mg/dl (7-17); Calcium 9.2 mg/dl (8.4-10.2); Carbon Dioxide 30 mmol/L (22.0-30.0); Creatinine Clearance Estimated 85 mL/min (50-200); Estimated Glomerular Filt Rate 65 ml/min (>60); GFR (African American) 78 ML/MIN (>60); Globulin 3.1 g/dL (1.3-3.2); Glucose 131 mg/dl (74-100); Total Protein,Serum 7.3 g/dl (6.3-8.2)
== END ==
PROVIDERS: Visit Provider Internal Medicine Medical Oncology
DX: C64.9 Malignant neoplasm of unspecified kidney, except renal pelvis (principal); C80.0 Disseminated malignant neoplasm, unspecified
CPT/HCPCS: 80053; 85025

== ENCOUNTER → 2020-05-24 12:50 | Outpatient (POV) | payer MEDICARE, SELFPAY ==
--- NOTE | 2020-05-24 13:36 | HMH.PAINSOAP ---
[facility] Pain Management SOAP Note Subjective:: Patient is pleasant 54-year-old white female who presents today for follow-up. Patient has had a acute exacerbation of sciatic pain. Mostly in her right leg. Patient does have an intrathecal pain pump that has bupivacaine that she utilizes when needed. Patient is in need a a refill. She is also on oxycodone 10 mg 1 p.o. twice daily and fentanyl 12 mcg every 72 hours patient denies side effects from medication. Patient's Edson #[id number] reviewed and appropriate. ROS General: no recent weight change, no fever, no sleep disturbances Respiratory: no cough, no shortness of air, no recurring pulmonary infections Cardiovascular/Peripheral Vascular: No chest pain, No palpitations, no edema, no shortness of breath. Gastrointestinal: no new onset incontinence, normal bowel movements reported Genitourinary: no new onset incontinence Musculoskeletal: Back pain, leg pain Psychiatric: normal mood/ affect Neurological: [denies new onset weakness in extremities], [denies new onset balance issues] Objective:: Physical Exam General: Alert and oriented x3, no acute distress, pleasant and cooperative, [on room air] Lungs: Resps E/U, Symmetrical chest expansion, Eyes: PERRL Musculoskeletal: Flexion and extension of lumbar spine somewhat guarded secondary to pain, deep tendon reflexes normal, strength in upper and lower extremities [5/5], [abnormal gait noted] Neurological: speech clear, cloth weigher equal, no gross sensory deficits Assessment:: Renal cell carcinoma with increased back pain, degenerative disc disease lumbar spine lumbar radiculopathy Plan:: We will start her on prednisone 20 mg 1 p.o. twice daily and give her 1 weeks worth. We will see her in 1 week to refill her intrathecal infusion of bupivacaine. She has been instructed to call the office if she has any issues prior to next appointment. If she does not get relief from the prednisone we will discuss potentially further imaging or epidural injections. Dr. Daniels has reviewed this note and agrees with this plan of care. This note was dictated using voice recognition software and may contain errors or omissions [facility] History I have reviewed the patient's past medical history: Yes Medical History: Reports:: Cancer, Congestive Heart Failure, Hyperlipidemia, Hypertension Denies:: Coronary Artery Disease, Diabetes Mellitus Type 1, Diabetes Mellitus Type 2, Internal Pacemaker, MRSA, Seizures *Have you ever received a pneumonia vaccine?: No *Have you received a flu vaccine this season?: Yes Other Medical History: Reports: Anemia, Blood Transfusion Reaction, Chemotherapy, Hormone Therapy, Hypothyroidism, Radiation Therapy, Thyroid Disease Laterality Cases: Left: Breast Biopsy, Right: Carpal Tunnel Release Other Surgeries: Yes: Cancer Surgery (renal biopsy, lt axillary node bx), , Hysterectomy-Total, Other (renal biopsy; lt axillary node biopsy). No: Pacemaker Amputation: No Fractures: No - *Social History Smoking Status: Former smoker Tobacco Type: cigarettes # Packs/Day (cigarettes): 1 #Yrs smoked (if former smoker): 20 Alcohol Intake: never Alcohol Intake Frequency:: other Substance Use Type: denies use *Occupational Status:: other Housing: house Household Members: spouse, family, children *Travel in the last 8 weeks: None Family Hx:: Cancer, Heart Attack, Hypertension, Stroke
== END ==
PROVIDERS: PCP Family Medicine; Visit Provider Clinical Nurse Specialist Family Health
DX: M51.16 Intervertebral disc disorders with radiculopathy, lumbar region (principal); C64.9 Malignant neoplasm of unspecified kidney, except renal pelvis
CPT/HCPCS: 99212; G0463

== ENCOUNTER → 2020-05-26 14:48 | Outpatient (CLI) | payer MEDICARE, SELFPAY ==
[2020-05-26 15:25] LABS: Basophils % 0.5 % (0.1-2.0); Eosinophils # 0.2 K/mm3 (0.0-0.4); Eosinophils % 2.7 % (0.1-12.0); Hematocrit 36.5 % (37.0-47.0); Hemoglobin 11.2 g/dL (12.2-16.2); Lymphocytes # 1.2 K/mm3 (0.7-4.5); Lymphocytes % 17.9 % (10-50); Mean Corpuscular HGB Conc 30.8 g/dL (31.8-35.4); Mean Corpuscular Hemoglobin 27.9 pg (27.0-31.2); Mean Corpuscular Volume 90.7 fl (81-99); Mean Platelet Volume 7.4 fl (7.4-10.4); Monocytes # 0.5 K/mm3 (0.1-1.0); Monocytes % 7.5 % (1.7-9.3); Neutrophils % 71.5 % (37.0-80.0); Platelet Count 373 K/mm3 (142-424); Red Blood Count 4.02 M/mm3 (4.20-5.40); Red Cell Distribution Width 14.5 % (11.5-17.5)
[2020-05-26 16:06] LABS: Alanine Aminotransferase 17 U/L (12-78); Albumin Level 4.2 g/dl (3.5-5.0); Albumin/Globulin Ratio 1.4 (1.1-1.8); Alkaline Phosphatase 74 U/L (38-126); Anion Gap 11.8 mEq/L (5-15); Aspartate Amino Transferase 23 U/L (14-36); Bilirubin,Total 0.3 mg/dl (0.2-1.3); Blood Urea Nitrogen 25 mg/dl (7-17); Calcium 9.5 mg/dl (8.4-10.2); Carbon Dioxide 29 mmol/L (22.0-30.0); Chloride 102 mmol/L (98-107); Estimated Glomerular Filt Rate 65 ml/min (>60); GFR (African American) 78 ML/MIN (>60); Globulin 2.9 g/dL (1.3-3.2); Glucose 142 mg/dl (74-100); Potassium 3.8 mmoL/L (3.5-5.1); Sodium 139 mmol/L (136-145); Total Protein,Serum 7.1 g/dl (6.3-8.2)
== END ==
PROVIDERS: Visit Provider Internal Medicine Medical Oncology
DX: C64.9 Malignant neoplasm of unspecified kidney, except renal pelvis (principal); C80.0 Disseminated malignant neoplasm, unspecified
CPT/HCPCS: 36415; 80053; 85025

== ENCOUNTER → 2020-05-27 08:51 | Outpatient (CLI) | payer MEDICARE, SELFPAY ==
--- NOTE | 2020-05-27 | CT_ITS ---
PROCEDURE: CT CHEST W CON CLINCAL INDICATION: Renal cell cancer Follow-up renal cell carcinoma COMPARISON: CT CT CHEST W CON from 03/08/2020 TECHNIQUE: IV Contrast: 75ml Isovue 370 Axial images obtained with sagittal and coronal reformats. All CT scans at the facility use one or more dose reduction, viz: automated exposure control, ma/kV adjustment per patient size (including targeted exams where dose is matched to indication, i.e. head), or iterative reconstruction technique. FINDINGS: Adenopathy remains in the AP window region of the mediastinum. Most of the nodes are unchanged. There is 1 node however which appears slightly larger measuring 2.3 by 1.7 cm previously 1.8 by 1.3 cm. The other nodes appear stable. Axillary nodes on the left appear stable. Left-sided supraclavicular node appear stable. No new enlarged nodes are apparent. Scarring is present in the right upper lobe and lingula not significantly changed. No suspicious pulmonary nodules apparent. Degenerative changes thoracic spine. No bony destructive process identified IMPRESSION: Persistent mediastinal left axillary and left supraclavicular adenopathy. At least 1 node in the AP window appears slightly larger with other nodes not significantly changed Dictated by: Brian Mayers MD 05/28/2020 11:55 Brian Mayers MD in [place] 05/28/2020 11:55
--- NOTE | 2020-05-27 | CT_ITS ---
PROCEDURE: CT ABDOMEN PELVIS W CON CLINICAL INDICATION: renal cell cancer Follow-up renal cell cancer COMPARISON: CT CT ABDOMEN PELVIS W CON from 03/08/2020 TECHNIQUE: IV Contrast: 75ML Isovue 370 Oral Contrast None Axial images obtained with sagittal and coronal reformats. All CT scans at the facility use one or more dose reduction, viz: automated exposure control, ma/kV adjustment per patient size (including targeted exams where dose is matched to indication, [place] a straight in head), or iterative reconstruction technique. FINDINGS: There remains 3 areas of decreased attenuation within the right hepatic lobe the largest at 2 cm. These areas are not significantly changed and may represent treated areas of neoplasm. No new liver lesions are apparent. The spleen, adrenal glands, gallbladder, and right kidney have an unremarkable appearance. There is pancreatic atrophy. Partially calcified left renal mass once again noted measuring 4.2 cm not significantly changed. There are atrophic changes of the left kidney. There is a right renal cyst. There are few small nodes in the left periaortic region which are unchanged. Unremarkable appendix. There is a moderate amount of retained colonic feces. No intestinal obstruction or free air. There has been a prior hysterectomy. Surgical clips are present in the pelvis. Pain pump is present with an epidural catheter. The catheter tip ends superiorly at the L1-L2 level. No bony destructive process evident. IMPRESSION: Overall stable CT appearance of the abdomen and pelvis. No change in the left renal mass and hypodensities of the right lobe of the liver. Dictated by: Brian Mayers MD 05/28/2020 12:04 Brian Mayers MD in [place] 05/28/2020 12:04
== END ==
PROVIDERS: PCP Family Medicine; Visit Provider Internal Medicine Medical Oncology
DX: C64.2 Malignant neoplasm of left kidney, except renal pelvis (principal); C79.00 Secondary malignant neoplasm of unspecified kidney and renal pelvis; C78.00 Secondary malignant neoplasm of unspecified lung
CPT/HCPCS: 71260; 74177; Q9967

== ENCOUNTER 2020-05-31 13:56 | Day surgery (SDC) | payer MEDICARE, SELFPAY ==
[2020-05-31 14:17] VITALS: BP 133/80; PULSE 76; RESP 18; TEMP 36.4; O2SAT 96; BMI 28.3
--- NOTE | 2020-05-31 14:50 | HMH.PMPROC ---
- Procedure Date: 05/31/20 Time: 14:56 Anesthesiologist:: Sanjana Sosa APRN Complications:: None Pre-procedure Diagnosis:: Degenerative disc disease lumbar spine lumbar radiculopathy, back pain, renal cell carcinoma Post-procedure Diagnosis:: Same Indications for Procedure:: Patient is a very pleasant 54-year-old white female who presents today for intrathecal pain pump refill and reprogram. Patient has recently finished prednisone yesterday. Patient still having some right leg pain however it is improved. She does have recent CT scans of her abdomen to be reviewed on with her oncologist. Patient is currently on bupivacaine intrathecally as well as oxycodone 10 mg 1 p.o. twice daily and fentanyl 12 mcg every 72 hours. She denies side effects from medication. She currently just utilizes a bupivacaine to bolus herself. Procedure Details:: Informed consent was obtained and the risk and benefits of the procedure were explained to the patient. The patient was taken to the procedure room where noninvasive monitoring was placed including noninvasive blood pressure cuff and pulse oximeter. Patient's pump was interrogated. The area over the pump was cleansed with chlorhexidine as a cleansing solution. In sterile fashion the pump was accessed with a 22-gauge needle. Approximately 8 mL's were removed of the pump solution and discarded appropriately. The pump was then refilled with 20 mL's of bupivacaine 5 mg/mL. The needle was withdrawn and a bandage was placed over the puncture site. The infusion rate was reprogrammed to continue with bolusing programming at 0.12 mg up to 4 times a day. The patient tolerated the procedure well. Plan and Disposition:: I will see the patient on Sunday if she is not having any improvement with her low back and sciatica pain we may get additional imaging or potentially an epidural steroid injection. She has been instructed to call the office if she has any issues prior to her next appointment. Dr. Daniels has reviewed this note and agrees with this plan of care. This note was dictated using voice recognition software and may contain errors or omissions
[2020-05-31 14:51] VITALS: BP 160/95; PULSE 72; RESP 18
[2020-05-31 14:53] VITALS: BP 165/85; PULSE 85; RESP 18; O2SAT 99
[2020-05-31 15:11] VITALS: BP 138/85; PULSE 67; RESP 20; O2SAT 96
== END 2020-05-31 15:12 | disposition home or self-care (01) ==
LOC: SC.PAINP 13:57
PROVIDERS: PCP Family Medicine; Visit Provider Clinical Nurse Specialist Family Health
DX: M51.16 Intervertebral disc disorders with radiculopathy, lumbar region (principal); C64.9 Malignant neoplasm of unspecified kidney, except renal pelvis; I11.0 Hypertensive heart disease with heart failure; I50.9 Heart failure, unspecified; E03.9 Hypothyroidism, unspecified; D64.9 Anemia, unspecified; Z88.8 Allergy status to other drugs, medicaments and biological substances; Z79.899 Other long term (current) drug therapy
CPT/HCPCS: 95991

== ENCOUNTER → 2020-06-07 14:27 | Outpatient (POV) | payer MEDICARE, SELFPAY ==
[2020-06-07 15:09] VITALS: BP 132/86; PULSE 91; RESP 18; TEMP 36.7; O2SAT 98; BMI 28.3
--- NOTE | 2020-06-07 15:15 | HMH.PMPROC ---
- Procedure Date: 06/07/20 Time: 15:15 Anesthesiologist:: Sanjana Sosa APRN Complications:: None Pre-procedure Diagnosis:: Degenerative disc disease lumbar spine lumbar radiculopathy, renal cell carcinoma and back pain Post-procedure Diagnosis:: Same Indications for Procedure:: Patient is a pleasant 54-year-old white female who presents today with increasing back pain. Patient has failed a round of oral steroids. Patient has a bupivacaine pump that she uses with boluses only she is also on oxycodone and fentanyl. Patient states that she did not call in time to have her pain medication refilled. Patient rates her pain today a 5 out of 10 mostly in her right lower leg. Patient and I discussed epidural steroid injection she is agreeable. Patient's bupivacaine pump was increased. Patient currently on 0.12 mg bolus up to 4 times a day will increase her to 0.25 every 3 hours as needed. I discussed with her that I do not have the ability to write her oral pain medication. Patient states she is recently been seen by oncology and at this time is stable there are no continuing courses of treatment at this time Procedure Details:: Informed consent was obtained and the risk and benefits of the procedure were explained to the patient. The patient was taken to the procedure room where noninvasive monitoring was placed including noninvasive blood pressure cuff and pulse oximeter. Patient's pump was interrogated and reprogrammed. The infusion rate was increased 0.25 mg every 3 hours as needed of bupivacaine bolus. The patient tolerated the procedure well. Plan and Disposition:: Patient will be set up for an L4-L5 lumbar epidural steroid injection she is not on any anticoagulation therapy. We will send her for an MRI if this does not prove beneficial for her. She has been instructed to call the office if she has any issues prior to her next appointment. Dr. Daniels has reviewed this note and agrees with this plan of care. This note was dictated using voice recognition software and may contain errors or omissions
== END ==
PROVIDERS: PCP Family Medicine; Visit Provider Clinical Nurse Specialist Family Health
DX: M51.16 Intervertebral disc disorders with radiculopathy, lumbar region (principal); C64.9 Malignant neoplasm of unspecified kidney, except renal pelvis; Z45.1 Encounter for adjustment and management of infusion pump
CPT/HCPCS: 62368; 99212; G0463

== ENCOUNTER 2020-06-11 12:05 | Day surgery (SDC) | payer MEDICARE, SELFPAY ==
[2020-06-11 12:52] VITALS: BP 120/82; PULSE 92; RESP 18; TEMP 36.5; O2SAT 94; BMI 28.3
[2020-06-11 13:22] VITALS: BP 198/82; PULSE 74; RESP 18; O2SAT 99
[2020-06-11 13:24] VITALS: BP 198/82; PULSE 87; RESP 18; O2SAT 98
--- NOTE | 2020-06-11 13:26 | HMH.PMPROC ---
- Procedure Date: 06/11/20 Time: 13:26 Anesthesiologist:: Roque Daniels MD Complications:: None Pre-procedure Diagnosis:: Degenerative disc disease of lumbar spine with lumbar radiculopathy symptoms and metastatic renal cell carcinoma is stable Post-procedure Diagnosis:: Same Indications for Procedure:: Patient is a pleasant 54-year-old white female who we are treating for increasing low back pain and right leg pain. She does not have any left leg pain. She does have an intrathecal bupivacaine pain pump which she only uses boluses on. She has gotten headaches from these boluses. She is not getting relief from her fentanyl patch or oxycodone. We will do a lumbar epidural steroid injection today to see if this will help with her pain symptoms. Procedure Details:: Lumbar epidural steroid injection under fluoroscopy Informed consent was obtained and the risk and benefits of the procedure was explained to the patient. The patient was taken to the procedure room. The patient was placed prone on the procedure table. The patient was prepped and draped in sterile fashion. C-arm fluoroscopy was used to view the lumbar spine. Skin and subcutaneous tissues were anesthetized using lidocaine. I placed an 18-gauge epidural needle and advanced into the L4-L5 interspace using fluoroscopic guidance and [id number] to air. After confirmation of needle placement in the epidural space with dye I injected 2 mL of lidocaine 1.5% with Depo-Medrol 80 mg. Patient tolerated the procedure well with no complications. Plan and Disposition:: We will follow-up with her in 2 weeks. Will reevaluate symptoms at that time. We have also given her information on spinal cord stimulation which may help with her right leg pain.
[2020-06-11 13:47] VITALS: BP 156/80; PULSE 78; RESP 18; O2SAT 98
== END 2020-06-11 13:48 | disposition home or self-care (01) ==
LOC: SC.PAINP 12:06
PROVIDERS: PCP Family Medicine; Visit Provider Anesthesiology
DX: M51.16 Intervertebral disc disorders with radiculopathy, lumbar region (principal); C64.9 Malignant neoplasm of unspecified kidney, except renal pelvis; I10 Essential (primary) hypertension; E03.9 Hypothyroidism, unspecified; Z88.8 Allergy status to other drugs, medicaments and biological substances; E78.5 Hyperlipidemia, unspecified
CPT/HCPCS: 62323; J1040; Q9966

== ENCOUNTER → 2020-07-08 14:38 | Outpatient (POV) | payer MEDICARE, SELFPAY ==
[2020-07-08 14:48] VITALS: BP 121/78; PULSE 74; RESP 18; O2SAT 98; BMI 28.3
--- NOTE | 2020-07-08 15:02 | P.CONS_ITS ---
[facility] Pain Management SOAP Note Subjective:: Patient is a pleasant 54-year-old white female who presents today for follow-up. Patient had a lumbar epidural steroid injection. Patient did extremely well with this she now rates her pain a 3 out of 10. She has not had to use her boluses for her intrathecal bupivacaine. Patient is on fentanyl and oxycodone. She is due refills at the end of this week. Patient's Edson #[id number] reviewed and appropriate. Patient's care current morphine equivalent is 59. ROS General: no recent weight change, no fever, no sleep disturbances Respiratory: no cough, no shortness of air, no recurring pulmonary infections Cardiovascular/Peripheral Vascular: No chest pain, No palpitations, no edema, no shortness of breath. Gastrointestinal: no new onset incontinence, normal bowel movements reported Genitourinary: no new onset incontinence Musculoskeletal: Back pain and leg pain at times Psychiatric: normal mood/ affect Neurological: [denies new onset weakness in extremities], [denies new onset balance issues] Objective:: Physical Exam General: Alert and oriented x3, no acute distress, pleasant and cooperative, [on room air] Lungs: Resps E/U, Symmetrical chest expansion, Eyes: PERRL Musculoskeletal: Flexion and extension of lumbar spine somewhat guarded se condary to pain, deep tendon reflexes normal, strength in upper and lower extremities [5/5], slightly antalgic gait noted Neurological: speech clear, bilingual research interviewer equal, no gross sensory deficits Assessment:: Degenerative disc disease lumbar spine lumbar radiculopathy and metastatic renal cell carcinoma Plan:: We will see the patient back in 2 months for for medication refills she has been instructed to call the office if she has any issues prior to her next appointment. Dr. Daniels has reviewed this note and agrees with this plan of care. This note was dictated using voice recognition software and may contain errors or omissions [facility] History I have reviewed the patient's past medical history: Yes Medical History: Reports:: Cancer (kidney w/ 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 and lung), Congestive Heart Failure, Hyperlipidemia, Hypertension Denies:: Coronary Artery Disease, Diabetes Mellitus Type 1, Diabetes Mellitus Type 2, Internal Pacemaker, MRSA, Seizures *Have you ever received a pneumonia vaccine?: Yes *Have you received a flu vaccine this season?: Yes Other Medical History: Reports: Anemia, Blood Transfusion Reaction, Chemotherapy, Hormone Therapy, Hypothyroidism, Radiation Therapy, Thyroid Disease Laterality Cases: Left: Breast Biopsy, Right: Carpal Tunnel Release Other Surgeries: Yes: Cancer Surgery (renal biopsy, lt axillary node bx), C- section, Hysterectomy-Total, Other (renal biopsy; lt axillary node biopsy). No: Pacemaker Amputation: No Fractures: No - *Social History Smoking Status: Former smoker Tobacco Type: cigarettes # Packs/Day (cigarettes): 1 #Yrs smoked (if former smoker): 20 Alcohol Intake: never Alcohol Intake Frequency:: other Substance Use Type: denies use *Occupational Status:: other Housing: house Household Members: spouse *Travel in the last 8 weeks: None Family Hx:: Cancer, Heart Attack, Hypertension, Stroke
== END ==
PROVIDERS: PCP Family Medicine; Visit Provider Clinical Nurse Specialist Family Health
DX: M51.16 Intervertebral disc disorders with radiculopathy, lumbar region (principal); C64.9 Malignant neoplasm of unspecified kidney, except renal pelvis
CPT/HCPCS: 99212; G0463

== ENCOUNTER → 2020-09-06 08:25 | Outpatient (POV) | payer MEDICARE, SELFPAY ==
[2020-09-06 08:35] VITALS: BP 114/84; PULSE 84; RESP 18; O2SAT 97; BMI 28.3
--- NOTE | 2020-09-06 08:44 | HMH.PMPROC ---
- Procedure Date: 09/06/20 Time: 08:44 Anesthesiologist:: Eileen Padilla APRN Complications:: None Pre-procedure Diagnosis:: Degenerative disc disease lumbar spine with lumbar radiculopathy symptoms, metastatic renal cell carcinoma Post-procedure Diagnosis:: Same Indications for Procedure:: Patient is a 55-year-old white female who presents today for worsening pain. She does have an intrathecal pain pump with bupivacaine only. The patient says that she is set up for PTC boluses only. She is also managed with oral medications. Patient says that she fell around and has had worsening pain. She says that she has coccygeal pain and asked drain pain to her low back area. She rates her pain an 8 out of 10. She would like an increase in her boluses today, however, she is also interested in injective therapy. She has had an epidural steroid injection in the past that has given her up to 70 to 80% relief. She would like to try the injection again to see if this gives her relief of her low back pain. She is continue with home stretching and ice and heat therapies. She is also continuing with massages to the area. We will increase her intrathecal pump today as well. Is currently on bupivacaine at 0.25 mg up to 8 times daily. Physical exam General: Alert and oriented x3, no acute distress, pleasant and cooperative, [on room air] Lungs: Respirations even and unlabored, symmetrical chest expansion Eyes: PERRL Musculoskeletal: Flexion and extension of lumbar spine somewhat guarded secondary to pain, deep tendon reflexes normal, strength in upper and lower extremities [5/5], [abnormal gait noted] Neurological: Speech clear, front of house manager equal, no gross sensory deficit Procedure Details:: Informed consent was obtained and the risk and benefits of the procedure were explained to the patient. Patient was taken to the procedure room where noninvasive monitoring was placed including noninvasive blood pressure cuff and pulse oximeter. Patient's pump was interrogated and was reprogrammed to bupivacaine at 0.35 mg up to 8 times daily. The patient tolerated the procedure well with no complications. Plan and Disposition:: We will see the patient back in the clinic after her injection. We will schedule her for a lumbar epidural steroid injection at L4-L5. The patient is not on any anticoagulation therapy. Risks and benefits of the procedure have been explained to the patient. Patient would like to proceed with the procedure. Patient has been instructed to contact the clinic with any concerns before the next appointment. Dr. Daniels has reviewed this note and agrees with this plan of care. This note was dictated using voice recognition software and make contain errors or omissions.
== END ==
PROVIDERS: Visit Provider Clinical Nurse Specialist Family Health
DX: M51.16 Intervertebral disc disorders with radiculopathy, lumbar region (principal); C64.9 Malignant neoplasm of unspecified kidney, except renal pelvis
CPT/HCPCS: 62368; 99212; G0463

== ENCOUNTER → 2020-09-07 09:31 | Outpatient (CLI) | payer MEDICARE, SELFPAY ==
[2020-09-07 09:55] LABS: Basophils % 0.5 % (0.1-2.0); Eosinophils # 0.1 K/mm3 (0.0-0.4); Eosinophils % 1.3 % (0.1-12.0); Hematocrit 35.3 % (37.0-47.0); Hemoglobin 11.5 g/dL (12.2-16.2); Lymphocytes # 1.3 K/mm3 (0.7-4.5); Lymphocytes % 15.2 % (10-50); Mean Corpuscular HGB Conc 32.5 g/dL (31.8-35.4); Mean Corpuscular Hemoglobin 26.7 pg (27.0-31.2); Mean Corpuscular Volume 82.1 fl (81-99); Mean Platelet Volume 7.4 fl (7.4-10.4); Monocytes # 0.6 K/mm3 (0.1-1.0); Monocytes % 6.5 % (1.7-9.3); Neutrophils # 6.7 K/mm3 (1.8-7.8); Neutrophils % 76.5 % (37.0-80.0); Platelet Count 346 K/mm3 (142-424); Red Cell Distribution Width 12.8 % (11.5-17.5); White Blood Count 8.7 K/mm3 (4.8-10.8)
[2020-09-07 10:13] LABS: Chloride 99 mmol/L (98-107)
[2020-09-07 10:14] LABS: Potassium 4.4 mmoL/L (3.5-5.1); Sodium 136 mmol/L (136-145)
[2020-09-07 10:16] LABS: Alanine Aminotransferase 14 U/L (12-78); Aspartate Amino Transferase 25 U/L (14-36); Blood Urea Nitrogen 19 mg/dl (7-17); Estimated Glomerular Filt Rate 74 ml/min (>60); GFR (African American) 89 ML/MIN (>60)
[2020-09-07 10:17] LABS: Albumin Level 4.9 g/dl (3.5-5.0); Albumin/Globulin Ratio 1.5 (1.1-1.8); Alkaline Phosphatase 94 U/L (38-126); Anion Gap 13.4 mEq/L (5-15); Bilirubin,Total 0.5 mg/dl (0.2-1.3); Calcium 9.7 mg/dl (8.4-10.2); Carbon Dioxide 28 mmol/L (22.0-30.0); Globulin 3.2 g/dL (1.3-3.2); Glucose 116 mg/dl (74-100); Total Protein,Serum 8.1 g/dl (6.3-8.2)
--- NOTE | 2020-09-07 10:27 | CT_ITS ---
PROCEDURE: CT ABDOMEN PELVIS W CON CLINICAL INDICATION: RENAL CELL CA Follow up No on chemo COMPARISON: CT CT ABDOMEN PELVIS W CON from 05/27/2020 TECHNIQUE: IV Contrast: 75ML Isovue 370 Oral Contrast None Axial images obtained with sagittal and coronal reformats. All CT scans at the facility use one or more dose reduction, viz: automated exposure control, ma/kV adjustment per patient size (including targeted exams where dose is matched to indication, i.e. head), or iterative reconstruction technique. FINDINGS: Hypodense area in the right hepatic lobe does not appear significantly changed at approximately 2 cm. The spleen and adrenal glands have an unremarkable appearance. Partially calcified left renal mass is stable at 4.2 cm. There is atrophy of the left kidney. The right kidney has an unremarkable appearance. Pancreatic atrophy noted. There is a small right renal cyst in the lower pole unchanged. Small area of soft tissue density is present in the left para-aortic region inferior to the left renal artery and may represent a small residual lymph node unchanged. No intra-abdominal mass or adenopathy. Mild amount of retained colonic feces. No intestinal obstruction or free air. No evidence of appendicitis or diverticulitis. Prior hysterectomy. No pelvic mass. Surgical clips are present in the pelvis. Degenerative changes in the lumbar and lower thoracic spine. There is pain pump present with the upper aspect of the intrathecal catheter at L1-L2. IMPRESSION: Overall stable CT appearance of the abdomen and pelvis. No change left renal mass and right lobe of liver lesion Dictated by: Brian Mayers MD 09/08/2020 08:17 Brian Mayers MD in [facility] 09/08/2020 08:17
--- NOTE | 2020-09-07 10:27 | CT_ITS ---
PROCEDURE: CT CHEST W CON CLINCAL INDICATION: RENAL CELL CA Follow up Not on chemo COMPARISON: CT CT CHEST W CON from 05/27/2020 TECHNIQUE: IV Contrast: 75ml Isovue 370 Axial images obtained with sagittal and coronal reformats. All CT scans at the facility use one or more dose reduction, viz: automated exposure control, ma/kV adjustment per patient size (including targeted exams where dose is matched to indication, i.e. head), or iterative reconstruction technique. FINDINGS: HEART AND MEDIASTINAL STRUCTURES: Mediastinal adenopathy once again noted within the AP window and appears slightly more bulky compared to the previous exam. There are coronary artery calcifications noted. No evidence of pericardial effusion LUNGS AND PLEURAL SPACES: Scarring is present in the right upper lobe and lingula with some mild atelectatic changes in the left upper lobe medially.. No suspicious pulmonary nodules apparent. No effusions. BONY STRUCTURES: There are degenerative changes in the thoracic spine. No bony destructive process apparent. UPPER ABDOMEN: See abdomen report done same day ADDITIONAL FINDINGS: There is bulky left axillary adenopathy which has developed since the previous exam. In pedicular, there are 2 left axillary lymph nodes which measure 3.3 x 2.6 cm (previously 1.8 x 1 cm) and 2.5 by 2.4 cm (previously 1 x 1 cm) with other smaller nodes present. Left supraclavicular node at 2 cm is unchanged. IMPRESSION: Enlarging mediastinal and left axillary lymph nodes consistent with progression of metastatic disease Dictated by: Brian Mayers MD 09/08/2020 08:09 Brian Mayers MD in [facility] 09/08/2020 08:09
== END ==
PROVIDERS: PCP Family Medicine; Visit Provider Internal Medicine Medical Oncology
DX: C64.9 Malignant neoplasm of unspecified kidney, except renal pelvis (principal)
CPT/HCPCS: 36415; 71260; 74177; 80053; 85025; Q9967

== ENCOUNTER 2020-09-16 09:01 | Outpatient (CLI) | payer MEDICARE, SELFPAY ==
[2020-09-16 09:02] VITALS: BMI 27.6
[2020-09-16 09:58] VITALS: BP 125/73; PULSE 77; RESP 18; O2SAT 96
[2020-09-16 10:26] LABS: Thyroid Stimulating Hormone 0.35 uIU/mL (0.465-4.68)
[2020-09-16 10:38] VITALS: BP 125/75; PULSE 74; RESP 18
[2020-09-17 13:54] LABS: Adrenocorticotropic Hormone 15.4 pg/mL (7.2-63.3)
== END 2020-09-16 10:38 | disposition home or self-care (01) ==
LOC: INF 09:01
PROVIDERS: Visit Provider Internal Medicine Medical Oncology
DX: Z51.11 Encounter for antineoplastic chemotherapy (principal); C64.9 Malignant neoplasm of unspecified kidney, except renal pelvis; C80.0 Disseminated malignant neoplasm, unspecified; E03.9 Hypothyroidism, unspecified
CPT/HCPCS: 82024; 82533; 84443; 96413; J9299

== ENCOUNTER → 2020-09-28 11:36 | Outpatient (CLI) | payer MEDICARE, SELFPAY ==
--- NOTE | 2020-09-28 | XR_ITS ---
PROCEDURE: XR KNEE RT 3V CLINICAL INDICATION: PAIN COMPARISON: No exams were available for comparison FINDINGS: No fracture or dislocation. No lytic or blastic change. There is normal mineralization. Minimal osteoarthritic change medial compartment and patellofemoral joint. There is a small suprapatellar effusion. Other findings:None. IMPRESSION: No acute fracture. Minimal osteoarthritic change with small knee joint effusion Dictated by: Brian Mayers MD 09/28/2020 12:27 Brian Mayers MD in [facility] 09/28/2020 12:27
--- NOTE | 2020-09-28 | XR_ITS ---
PROCEDURE: XR LUMBAR SPINE 2-3V CLINICAL INDICATION: Pain COMPARISON: CT CT ABDOMEN PELVIS W CON from 09/07/2020 FINDINGS: Minimal lumbar curvature convex left. There is a pain present with the pump along the posterior right flank. The catheter enters the canal region at the L4-5 area and is directed cephalad with the tip at L1-L2. No acute fracture or dislocation. There is degenerative disc disease at T12-L1 and L5-S1 Other findings:Surgical clips are present in the lower abdomen and pelvis on the left. There is a mild amount of retained colonic feces. Calcifications noted in the left upper abdominal region corresponding to the calcific renal mass. No lytic or blastic change apparent. IMPRESSION: Lumbar spondylosis as described above. Dictated by: Brian Mayers MD 09/28/2020 12:24 Brian Mayers MD in [facility] 09/28/2020 12:24
--- NOTE | 2020-09-28 | XR_ITS ---
PROCEDURE: XR ANKLE RT MIN 3V CLINICAL INDICATION: Pain COMPARISON: No exams were available for comparison FINDINGS: No fracture or dislocation. No lytic or blastic change. There is normal mineralization. The joint spaces are well-preserved. No significant degenerative/arthritic changes. No erosive changes evident. Other findings:Small Achilles enthesophyte IMPRESSION: No acute findings. Dictated by: Brian Mayers MD 09/28/2020 12:26 Brian Mayers MD in [facility] 09/28/2020 12:26
== END ==
PROVIDERS: PCP Family Medicine; Visit Provider Family Medicine
DX: M25.561 Pain in right knee (principal); M25.571 Pain in right ankle and joints of right foot; M54.31 Sciatica, right side
CPT/HCPCS: 72100; 73562; 73610

== ENCOUNTER 2020-09-30 09:01 | Outpatient (CLI) | payer MEDICARE, SELFPAY ==
[2020-09-30 09:03] VITALS: BMI 27.6
[2020-09-30 09:18] LABS: Basophils # 0.1 K/mm3 (0-0.2); Basophils % 0.8 % (0.1-2.0); Eosinophils # 0.3 K/mm3 (0.0-0.4); Eosinophils % 3.2 % (0.1-12.0); Hematocrit 36.5 % (37.0-47.0); Hemoglobin 11.8 g/dL (12.2-16.2); Lymphocytes # 1.4 K/mm3 (0.7-4.5); Lymphocytes % 18.6 % (10-50); Mean Corpuscular HGB Conc 32.4 g/dL (31.8-35.4); Mean Corpuscular Hemoglobin 26.6 pg (27.0-31.2); Monocytes # 0.5 K/mm3 (0.1-1.0); Monocytes % 6.1 % (1.7-9.3); Neutrophils # 5.6 K/mm3 (1.8-7.8); Neutrophils % 71.4 % (37.0-80.0); Platelet Count 410 K/mm3 (142-424); Red Blood Count 4.45 M/mm3 (4.20-5.40); Red Cell Distribution Width 13.4 % (11.5-17.5); White Blood Count 7.8 K/mm3 (4.8-10.8)
[2020-09-30 09:41] LABS: Chloride 101 mmol/L (98-107); Sodium 137 mmol/L (136-145)
[2020-09-30 09:42] LABS: Potassium 3.8 mmoL/L (3.5-5.1)
[2020-09-30 09:44] LABS: Alanine Aminotransferase 11 U/L (12-78); Alkaline Phosphatase 102 U/L (38-126); Anion Gap 12.8 mEq/L (5-15); Aspartate Amino Transferase 17 U/L (14-36); Bilirubin,Total 0.5 mg/dl (0.2-1.3); Blood Urea Nitrogen 20 mg/dl (7-17); Carbon Dioxide 27 mmol/L (22.0-30.0); Creatinine Clearance Estimated 92 mL/min (50-200); Estimated Glomerular Filt Rate 74 ml/min (>60); GFR (African American) 89 ML/MIN (>60)
[2020-09-30 09:45] LABS: Albumin Level 4.4 g/dl (3.5-5.0); Albumin/Globulin Ratio 1.5 (1.1-1.8); Calcium 9.1 mg/dl (8.4-10.2); Glucose 123 mg/dl (74-100); Total Protein,Serum 7.4 g/dl (6.3-8.2)
[2020-09-30 10:14] LABS: Thyroid Stimulating Hormone 0.98 uIU/mL (0.465-4.68)
[2020-09-30 10:19] VITALS: BP 133/70; PULSE 79; RESP 17; TEMP 36.3; O2SAT 97
[2020-09-30 11:18] VITALS: BP 128/70; PULSE 72; RESP 17; O2SAT 98
[2020-10-01 12:19] LABS: Adrenocorticotropic Hormone 8.3 pg/mL (7.2-63.3)
== END 2020-09-30 11:22 | disposition home or self-care (01) ==
LOC: INF 09:01
PROVIDERS: Visit Provider Internal Medicine Medical Oncology
DX: Z51.11 Encounter for antineoplastic chemotherapy (principal); C64.9 Malignant neoplasm of unspecified kidney, except renal pelvis; Z79.899 Other long term (current) drug therapy
CPT/HCPCS: 80053; 82024; 82533; 84443; 85025; 96413; J9299

== ENCOUNTER → 2020-10-04 13:00 | Outpatient (POV) | payer MEDICARE, SELFPAY ==
[2020-10-04 13:26] VITALS: BP 155/85; PULSE 90; RESP 18; O2SAT 97; BMI 27.4
--- NOTE | 2020-10-04 14:22 | HMH.PAINSOAP ---
[facility] Pain Management SOAP Note Subjective:: Patient is a 55-year-old white female who presents today for follow-up. She is being treated for degenerative disc disease lumbar spine with lumbar radiculopathy symptoms and metastatic renal cell carcinoma. She does have an intrathecal pain pump with morphine. The morphine intrathecal pump is only providing boluses. Her continuous right is turned off. She says that she is not getting significant relief with her pump. She is requesting the pump be explanted. We had a long discussion concerning the plan of care. I did discuss a plan of care with Dr. Dominguez regarding the patient. Edgar and urine per [phone] has been reviewed and is appropriate. Drug screens have been appropriate. Morphine equivalent is 59. She is on oxycodone 10 mg 1 tablet p.o. twice daily and fentanyl Duragesic patch 12 mcg an hour. After further discussion with Dr. Dominguez and the patient, we will increase the patient's oxycodone to 10 mg 1 tablet p.o. 3 times daily and continue her fentanyl Duragesic patch at 12 mcg an hour. We will plan for the patient to have her intrathecal pump removed. Rates her pain a 7 out of 10 today. Review of Systems General: No recent weight changes, no fever, no sleep disturbances Respiratory: No cough, no shortness of air, no recurring pulmonary infections Cardiovascular/peripheral vascular: No chest pain, no palpitations, no edema, no shortness of breath Gastrointestinal: No new onset incontinence, normal bowel movements reported Genitourinary: No new onset incontinence Musculoskeletal: Low back pain with radiation into right leg Psychiatric: Normal mood/affect Neurological: [Denies weakness in extremities], [denies balance issues] Objective:: Physical exam General: Alert and oriented x3, no acute distress, pleasant and cooperative, [on room air] Lungs: Respirations even and unlabored, symmetrical chest expansion Eyes: PERRL Musculoskeletal: Flexion and extension of [] lumbar spine somewhat guarded secondary to pain, deep tendon reflexes normal, strength in upper and lower extremities [5/5], [abnormal gait noted] Neurological: Speech clear, steam press tender equal, no gross sensory deficit Assessment:: Degenerative disc disease lumbar spine with lumbar radiculopathy symptoms, metastatic renal carcinoma Plan:: Dr. Dominguez will increase the patient's oxycodone 10 mg 3 times daily. She will continue her fentanyl Duragesic patch 10 mcg an hour. She will be scheduled for removal of her intrathecal pain pump. We will follow up with her with in 1 month. She would like to see a physician at the next follow-up visit to discuss a further plan of care with her medication regimen. Risks and benefits of the medication have been explained in detail to the patient. The patient has been advised to consult with his/her primary care provider and pharmacist regarding drug-drug interaction of medications currently prescribed. Patient has been prescribed a controlled substance after being counseled on the medication, medication safety, and possible side effects. EDGAR report has been obtained and reviewed prior to prescription and found to be appropriate. Opioid contract was reviewed and signed by the patient, and that they have agreed to all of the terms set forth by our compliance program. Patient has been instructed to contact the clinic with any concerns before the next appointment. Dr. Daniels has reviewed this note and agrees with this plan of care. This note was dictated using voice recognition software and make contain errors or omissions. [facility] History I have reviewed the patient's past medical history: Yes Medical History: Reports:: Cancer (RENAL), Congestive Heart Failure, Hyperlipidemia, Hypertension Denies:: Coronary Artery Disease, Diabetes Mellitus Type 1, Diabetes Mellitus Type 2, Internal Pacemaker, MRSA, Seizures *Have you ever received a pneumonia vaccine?: No *Have you received a flu vaccine
--- NOTE | 2020-10-19 10:21 | PC.NURSE ---
Spoke with patient on 10/19 at 10:21 AM notifying her of explant date for October.
== END ==
PROVIDERS: Visit Provider Clinical Nurse Specialist Family Health
DX: M51.16 Intervertebral disc disorders with radiculopathy, lumbar region (principal); C64.9 Malignant neoplasm of unspecified kidney, except renal pelvis
CPT/HCPCS: 99212; G0463

== ENCOUNTER 2020-10-14 09:55 | Outpatient (CLI) | payer MEDICARE, SELFPAY ==
[2020-10-14 09:56] VITALS: BMI 27.6
--- NOTE | 2020-10-14 10:02 | PC.NURSE ---
1002-pt here for lab draw; pt sent to oncology appointment may return for treatment per md decision; specimens taken to lab
[2020-10-14 10:17] LABS: Basophils # 0.1 K/mm3 (0-0.2); Eosinophils # 0.4 K/mm3 (0.0-0.4); Eosinophils % 6.8 % (0.1-12.0); Hematocrit 34.6 % (37.0-47.0); Hemoglobin 11.5 g/dL (12.2-16.2); Lymphocytes # 1.1 K/mm3 (0.7-4.5); Lymphocytes % 18.3 % (10-50); Mean Corpuscular HGB Conc 33.3 g/dL (31.8-35.4); Mean Corpuscular Hemoglobin 26.5 pg (27.0-31.2); Mean Corpuscular Volume 79.5 fl (81-99); Mean Platelet Volume 7.3 fl (7.4-10.4); Monocytes # 0.4 K/mm3 (0.1-1.0); Monocytes % 6.4 % (1.7-9.3); Neutrophils # 4.1 K/mm3 (1.8-7.8); Neutrophils % 67.4 % (37.0-80.0); Platelet Count 319 K/mm3 (142-424); Red Blood Count 4.35 M/mm3 (4.20-5.40); Red Cell Distribution Width 13.2 % (11.5-17.5); White Blood Count 6.1 K/mm3 (4.8-10.8)
[2020-10-14 10:32] LABS: Chloride 102 mmol/L (98-107); Potassium 4.1 mmoL/L (3.5-5.1); Sodium 140 mmol/L (136-145)
[2020-10-14 10:34] LABS: Alanine Aminotransferase 12 U/L (12-78); Aspartate Amino Transferase 20 U/L (14-36); Blood Urea Nitrogen 15 mg/dl (7-17); Creatinine Clearance Estimated 82 mL/min (50-200); Estimated Glomerular Filt Rate 65 ml/min (>60); GFR (African American) 78 ML/MIN (>60)
[2020-10-14 10:35] LABS: Albumin Level 4.6 g/dl (3.5-5.0); Albumin/Globulin Ratio 1.5 (1.1-1.8); Alkaline Phosphatase 112 U/L (38-126); Anion Gap 14.1 mEq/L (5-15); Bilirubin,Total 0.5 mg/dl (0.2-1.3); Calcium 9.3 mg/dl (8.4-10.2); Carbon Dioxide 28 mmol/L (22.0-30.0); Globulin 3.1 g/dL (1.3-3.2); Glucose 123 mg/dl (74-100); Total Protein,Serum 7.7 g/dl (6.3-8.2)
[2020-10-14 11:06] LABS: Thyroid Stimulating Hormone 0.45 uIU/mL (0.465-4.68)
[2020-10-14 11:48] VITALS: BP 132/72; PULSE 72; RESP 18; TEMP 35.8; O2SAT 95
[2020-10-14 12:05] VITALS: BP 128/78; PULSE 68; RESP 18
[2020-10-14 12:17] VITALS: BP 147/90; PULSE 72; RESP 18
[2020-10-15 16:26] LABS: Adrenocorticotropic Hormone 19.2 pg/mL (7.2-63.3)
== END 2020-10-14 12:17 | disposition home or self-care (01) ==
LOC: INF 09:55
PROVIDERS: Visit Provider Internal Medicine Medical Oncology
DX: Z51.11 Encounter for antineoplastic chemotherapy (principal); C64.9 Malignant neoplasm of unspecified kidney, except renal pelvis; Z79.899 Other long term (current) drug therapy
CPT/HCPCS: 80053; 82024; 82533; 84443; 85025; 96413; J9299

== ENCOUNTER 2020-10-29 14:00 | Outpatient (RCR) | payer MEDICARE, SELFPAY ==
--- NOTE | 2020-09-20 13:25 | HMH.PTOPWND ---
Rehab Outpt Wound Evaluation Rehab OP Wound Evaluation Start: 09/20/20 13:00 Freq: Status: Active Protocol: Document 09/20/20 13:17 ROSA (Rec: 09/20/20 13:25 PHORNE [id number]) Electronically Signed By Kaden Choudhury, PT 09/20/20 13:17 Subjective/History History History Pt is 55 yowf who presents with c/o R LE pain and edema x 2-3 mos with gradually worsened symptoms. She has complex medical hx of renal cell cancer with mets to lung, liver, and lymph nodes dx'd in 2018. She has continued to undergo chemo and radiation as needed. She also has hx of sciatic pain and an intrathecal pain pump, She reports sharp, intermittent pain around the R knee. She also reports some tenderness to palpation throughout the R lower leg, worse on the lateral R knee. Other PMH: CHF , HTN, HL, hypothyroid. Subjective Subjective Pain at worst is 8/10 in R knee. Palpation tenderness R lateral knee 2/4. Lymphedema Eval Classification of Lymphedema Secondary Lymphedema Yes Stemmer's sign Stemmer's Sign no Stage of Lymphedema Lymphedema stages Stage 0 (subjective c/o heaviness and aching) Skin Changes Redness Yes Other Changes Yes Pain Scale Pain Scale (0-10) 8 Radiation Therapy Has received radiation therapy yes Chemo Therapy Has received chemo therapy yes Affected Extremities Areas Affected by Lymphedema/Edema Right Lower Extremity Manual Lymphatic Drainage Treatment Area MLD Treatment Area Right Lower Extremity Wound Problems/Impairments Impairments Problems/Impairmments Palpation Tenderness,Impaired Endurance,Impaired Walking, Impaired Recreational Activities,Increased Edema, Lymphedema Present,Subjective C/O Pain,Impaired Self Care/ Self Management Prognosis Rehab Potential Good Clinical Impression Consistent with Diagnosis Yes Short Term Goals Number of Weeks 4 Decreased Palpation Tenderness Yes Decrease Edema
--- NOTE | 2020-10-22 14:55 | HMH.RHREAS ---
Rehab Reassessment Rehab OP Re-assessment Start: 10/22/20 14:52 Freq: Status: Active Protocol: Document 10/22/20 14:53 ROSA (Rec: 10/22/20 14:55 ROSA [id number]) Electronically Signed By Kaden Choudhury, PT 10/22/20 14:53 Rehab Re-assessment Subjective Subjective Pt reports slightly less pain in the R knee area. Objective Objective Notes Circumferential measurements: R LE -2.7 cm since initial eval. Assessment Progress Assessment Progressing as Expected Assessment Notes Pt with less pitting and fibrotic edema noted in the LEs. Some increased tenderness along the R ITB throughout its length. Patient goals met ST,2,3 Goals Not Met LT,2,3,4 Revised Goals none Plan Plan Continue per initial POC. Frequency of Therapy 2 x/wk Duration of therapy 8 wks Time and Billing Re-Eval Time 15 Re-Eval Billing Units 1 PHYSICIAN CERTIFICATION: I certify the specified therapy services for Lorena Carter are required, authorized, and reviewed every 30 days.
== END 2020-10-29 14:05 | disposition home or self-care (01) ==
LOC: PT 14:00
PROVIDERS: Visit Provider Internal Medicine Medical Oncology
DX: I89.0 Lymphedema, not elsewhere classified (principal); M79.604 Pain in right leg
CPT/HCPCS: 97140; 97162; 97164; 97760

== ENCOUNTER → 2020-11-16 10:14 | Outpatient (CLI) | payer MEDICARE, SELFPAY ==
[2020-11-16 10:46] LABS: Basophils # 0.1 K/mm3 (0-0.2); Basophils % 0.8 % (0.1-2.0); Eosinophils # 0.7 K/mm3 (0.0-0.4); Eosinophils % 9.1 % (0.1-12.0); Hematocrit 35.2 % (37.0-47.0); Hemoglobin 11.2 g/dL (12.2-16.2); Lymphocytes # 1.3 K/mm3 (0.7-4.5); Lymphocytes % 18.5 % (10-50); Mean Corpuscular HGB Conc 31.9 g/dL (31.8-35.4); Mean Corpuscular Hemoglobin 26.1 pg (27.0-31.2); Mean Corpuscular Volume 81.6 fl (81-99); Mean Platelet Volume 7.2 fl (7.4-10.4); Monocytes # 0.4 K/mm3 (0.1-1.0); Neutrophils # 4.7 K/mm3 (1.8-7.8); Neutrophils % 66.5 % (37.0-80.0); Platelet Count 370 K/mm3 (142-424); Red Blood Count 4.31 M/mm3 (4.20-5.40); Red Cell Distribution Width 13.8 % (11.5-17.5); White Blood Count 7.1 K/mm3 (4.8-10.8)
[2020-11-16 11:22] LABS: Anion Gap 13.9 mEq/L (5-15); Blood Urea Nitrogen 21 mg/dl (7-17); Calcium 9.2 mg/dl (8.4-10.2); Carbon Dioxide 29 mmol/L (22.0-30.0); Chloride 100 mmol/L (98-107); Estimated Glomerular Filt Rate 74 ml/min (>60); GFR (African American) 89 ML/MIN (>60); Glucose 137 mg/dl (74-100); Potassium 3.9 mmoL/L (3.5-5.1); Sodium 139 mmol/L (136-145)
[2020-11-16 11:54] LABS: Thyroid Stimulating Hormone 1.76 uIU/mL (0.465-4.68)
[2020-11-16 13:23] LABS: Folate 5.46 ng/mL
[2020-11-16 21:29] LABS: Vitamin B12 > 1000 pg/mL (239-931)
== END ==
PROVIDERS: Surgery; PCP Family Medicine; Visit Provider Nurse Practitioner Family
DX: C64.9 Malignant neoplasm of unspecified kidney, except renal pelvis (principal); E03.9 Hypothyroidism, unspecified; Z68.27 Body mass index [BMI] 27.0-27.9, adult; I10 Essential (primary) hypertension; R51.9 Headache, unspecified; Z01.812 Encounter for preprocedural laboratory examination; Z11.52 Encounter for screening for COVID-19
CPT/HCPCS: 36415; 80048; 82607; 82746; 84443; 85025; 94762; U0003

== ENCOUNTER 2020-11-17 06:59 | Day surgery (SDC) | payer MEDICARE, SELFPAY ==
[2020-11-16 08:24] VITALS: BMI 26.6
[2020-11-17 07:57] VITALS: BP 125/67; PULSE 76; RESP 18; TEMP 36.5; O2SAT 97
--- NOTE | 2020-11-17 10:00 | PC.NURSE ---
called in Rx for Bactrim DS 1 tab PO BID with no refills per MD order.
--- NOTE | 2020-11-17 10:13 | P.PN_ITS ---
[facility] Anesthesia Checklist - Patient Identification Patient Identification: Arm Band - Structural Data Admitted From: Home Planned Operative Procedure/s: pain pump explant Consent for Planned Operative Procedure(s) Verified: Yes Verified Documents: Surgical Consent, History and Physical - NPO Status Verified Time NPO: 00:00 - Additional verifications Anesthesia Reactions: No Hx Blood Transfusions: No Blood Transfusion Reaction: Yes - Airway Assessment C-Spine Mobility Assessed: Yes (mp2) TMJ Mobility Assessed: Yes Dentition: Good Dentition - Neurological Assessment Level of Consciousness: Awake, Alert - Anesthesia Plan Anesthesia Risk discussed: Yes Anesthesia Plan: Verified ASA Class: III Anesthesia Type: MAC [facility] History I have reviewed the patient's past medical history: Yes Medical History: Reports:: Cancer (kidney, 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/ lungs), Congestive Heart Failure, Depression, Hyperlipidemia, Hypertension, Migraine, Renal Disease Denies:: Coronary Artery Disease, Diabetes Mellitus Type 1, Diabetes Mellitus Type 2, Internal Pacemaker, MRSA, Seizures *Have you ever received a pneumonia vaccine?: Yes (2018) *Have you received a flu vaccine this season?: No Other Medical History: Reports: Anemia, Blood Transfusion Reaction, Chemotherapy, Hormone Therapy, Hypothyroidism, Liver Disease, Radiation Therapy, Thyroid Disease Anesthesia experience/problems:: nac Laterality Cases: Left: Breast Biopsy, Right: Carpal Tunnel Release Other Surgeries: Yes: Cancer Surgery (renal biopsy;left auxillary lymph node bx), Colonoscopy, , Hysterectomy-Total, Other. No: Pacemaker Amputation: No Fractures: No - *Social History Last grade of school completed: Some college Smoking Status: Never smoker Tobacco Type: cigarettes # Packs/Day (cigarettes): 1 #Yrs smoked (if former smoker): 20 Alcohol Intake: never Alcohol Intake Frequency:: other Substance Use Type: denies use *Occupational Status:: unemployed, disabled Housing: house Household Members: spouse *Travel in the last 8 weeks: None - Psychiatric History Pschychiatric History:: Reports:: Depression Family Hx:: Cancer, Heart Attack, Hypertension, Stroke
--- NOTE | 2020-11-17 10:26 | HMH.OPNOTE ---
Date of procedure: 11/17/20 Pre-op Diagnosis:: Disease of the lumbar spine with radiculopathy?desires removal of pain pump generator Post-op Diagnosis:: Same Procedure performed:: Removal of pain pump generator Surgeon:: Juwan Zuleta MD SUMAC TANNER:: Cruz Hercules, Kala Magdaleno, Raoul Clement, Luis Alberto Grant, Mert Hancock, César Denise, Other Anesthesia: MAC Estimated blood loss (mL): 5 Operative findings:: Not applicable Operative note:: Patient was placed prone on the operating table and her back and flank region were prepped and draped in sterile fashion. Once adequate IV sedation was obtained utilizing anesthesia and local anesthesia utilizing 1% Xylocaine an incision was made over the generator and carried out the skin and subcutaneous tissues. Generator was easily delivered from the pocket without difficulty. Catheter disconnected from the generator and ligated with a 0 silk tie. Area was irrigated with antibiotic solution. Subcutaneous tissues approximated with stitches of 2-0 Vicryl. Skin closed with stitches of 4-0 nylon. Sterile compression dressing applied to the wound. The patient taught procedure well taken recovery sedation. Upon recovery the patient be discharged home and will follow up in 1 week at the pain clinic. Bactrim DS twice daily x1 week per protocol. The patient tolerated the procedure well. Condition: stable Disposition: PACU Complications:: None
[2020-11-17 10:35] VITALS: BP 116/70; PULSE 77; RESP 16; TEMP 36.6; O2SAT 99
[2020-11-17 10:50] VITALS: BP 127/76; PULSE 71; RESP 16; TEMP 36.6; O2SAT 98
[2020-11-17 11:05] VITALS: BP 123/84; PULSE 74; RESP 16; TEMP 36.6; O2SAT 99
[2020-11-17 11:35] VITALS: BP 136/80; PULSE 70; RESP 16; TEMP 36.6; O2SAT 99
--- NOTE | 2020-11-17 13:51 | SUR.OPER ---
Pain pump removed has SN: [id number]
== END 2020-11-17 11:40 | disposition home or self-care (01) ==
LOC: OR 07:01
PROVIDERS: PCP Family Medicine; Visit Provider Surgery
DX: M51.36 Other intervertebral disc degeneration, lumbar region (principal); Z45.1 Encounter for adjustment and management of infusion pump; C64.9 Malignant neoplasm of unspecified kidney, except renal pelvis; C78.7 Secondary malignant neoplasm of liver and intrahepatic bile duct; C78.00 Secondary malignant neoplasm of unspecified lung; I11.0 Hypertensive heart disease with heart failure; I50.9 Heart failure, unspecified; F32.9 Major depressive disorder, single episode, unspecified; E78.5 Hyperlipidemia, unspecified; G43.909 Migraine, unspecified, not intractable, without status migrainosus; D64.9 Anemia, unspecified; Z82.3 Family history of stroke
CPT/HCPCS: 62365; 96374; J3370

== ENCOUNTER → 2020-11-24 12:55 | Outpatient (CLI) | payer MEDICARE, SELFPAY ==
--- NOTE | 2020-11-24 12:55 | MR_ITS ---
PROCEDURE: MR HEAD/BRAIN WO/W CON CLINICAL INDICATION: eval for mets, RN STAFF abnormality Severe headaches, renal cancer, COMPARISON: No exams were available for comparison TECHNIQUE: Routine multiplanar multi echo sequences are performed without and with gadolinium enhancement. FINDINGS: No evidence of acute infarction or restricted diffusion. The cerebellopontine angles, cerebellum, and brainstem have an unremarkable appearance. No midline shift or mass effect. No evidence of acute intracranial hemorrhage. There is some nonspecific increased FLAIR signal within the mil most commonly seen with ischemic gliotic changes from microvascular disease. There are few T2 white matter hyperintensities which may also be due to ischemic gliotic foci. No enhancing lesions are evident.. Fluid is present in the left mastoid sinus. No paranasal sinus air-fluid levels evident. IMPRESSION: No acute intracranial findings. No evidence of metastatic disease. Left mastoid sinus disease Dictated by: Brian Mayers MD 11/25/2020 08:08 Brian Mayers MD in [place] 11/25/2020 08:08
== END ==
PROVIDERS: PCP Family Medicine; Visit Provider Nurse Practitioner Family
DX: C64.9 Malignant neoplasm of unspecified kidney, except renal pelvis (principal); E03.9 Hypothyroidism, unspecified; Z68.27 Body mass index [BMI] 27.0-27.9, adult; R51.9 Headache, unspecified
CPT/HCPCS: 70553; A9576

== ENCOUNTER → 2020-11-25 08:39 | Outpatient (POV) | payer MEDICARE, SELFPAY ==
[2020-11-25 09:12] VITALS: BP 127/78; PULSE 98; RESP 18; O2SAT 97; BMI 26.6
--- NOTE | 2020-11-25 09:48 | HMH.PAINSOAP ---
[facility] Pain Management SOAP Note Subjective:: Patient is a 55-year-old white female who presents today for follow-up. The patient recently had explant of her intrathecal pain pump. She does have sutures in place. She is 1 week postoperative. She has been treated for degenerative disc disease lumbar spine with lumbar radiculopathy symptoms as well as facet cancer. Patient rates her pain a 2 out of 10 at this time. She is continued to have pain in her right low back area with radiation into her right leg. She says her right leg is giving out . She says that she does have an appointment with Dr. Villagomez tomorrow to have her knee assessed. She is having continued swelling to her right knee as well as pain in her right buttock area. She is tender to palpation to her right SI joint today. We did discuss that she would be a candidate for injective therapy to her right SI joint 6 weeks postoperative of her explant, however, she is unsure if she wants to proceed. She does feel that her pain is from her knee. She also had an MRI recently of her brain due to worsening migraines. This was ordered by Dr. Bowling. Patient does need refills on medications. She is currently taking fentanyl 12 mcg an hour as well as oxycodone 10 mg 1 tablet p.o. 3 times daily. She was given gabapentin 3 mg 1 tablet p.o. twice daily which has helped much more than the previous gabapentin 100 mg 1 tablet p.o. 3 times daily. She would like to continue this dose. Review of Systems General: No recent weight changes, no fever, no sleep disturbances Respiratory: No cough, no shortness of air, no recurring pulmonary infections Cardiovascular/peripheral vascular: No chest pain, no palpitation, no shortness of breath Gastrointestinal: No new onset incontinence, normal bowel movements reported Genitourinary: No new onset incontinence Musculoskeletal: Right buttock pain, right leg pain with tingling, right knee pain with swelling Psychiatric: [Normal mood/affect] Neurological: [Denies weakness in extremities], [denies balance issues] Objective:: Physical exam General: Alert and oriented x3, no acute distress, pleasant and cooperative, [on room air] Lungs: Respirations even and unlabored, symmetrical chest expansion Eyes: PERRL Musculoskeletal: Flexion and extension of lumbar [spine] somewhat guarded secondary to pain, strength in upper and lower extremities [5/5], [antalgic gait noted], positive José's test, positive compression test, positive distraction test Neurological: Speech clear, [warp bleaching vat tender equal], no gross sensory deficit Assessment:: Sacroiliitis, right, degenerative disc disease lumbar spine bar radiculopathy symptoms, metastatic cancer Plan:: We will continue the patient's fentanyl Duragesic patch 12 mcg an hour, oxycodone 10 mg 1 tablet p.o. 3 times daily, and will continue her gabapentin 300 mg 1 tablet p.o. twice daily. She will return to the clinic in 2 weeks for suture removal. She has been instructed to contact clinic if she has any concerns for next morning. Risks and benefits of the medication have been explained in detail to the patient. The patient has been advised to consult with his/her primary care provider and pharmacist regarding drug-drug interaction of medications currently prescribed. Patient has been instructed to contact the clinic with any concerns before the next appointment. Dr. Daniels has reviewed this note and agrees with this plan of care. This note was dictated using voice recognition software and make contain errors or omissions. [facility] History I have reviewed the patient's past medical history: Yes Medical History: Reports:: Cancer (kidney, 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/ lungs), Congestive Heart Failure, Depression, Hyperlipidemia, Hypertension, Migraine, Renal Disease Denies:: Coronary Artery Disease, Diabetes Mellitus Type 1, Diabetes Mellitus Type 2, Internal Pacemaker, MRSA, Seizures *Have you ever received a pneumonia vaccine?: Yes *Have yo
== END ==
PROVIDERS: PCP Family Medicine; Visit Provider Clinical Nurse Specialist Family Health
DX: M46.1 Sacroiliitis, not elsewhere classified (principal); M51.16 Intervertebral disc disorders with radiculopathy, lumbar region; C80.0 Disseminated malignant neoplasm, unspecified
CPT/HCPCS: 99212; G0463

== ENCOUNTER → 2020-11-26 09:40 | Outpatient (CLI) | payer MEDICARE, SELFPAY ==
--- NOTE | 2020-11-26 09:45 | XR_ITS ---
PROCEDURE: XR KNEE RT 4V CLINICAL INDICATION: RT knee pain COMPARISON: CR XR KNEE RT 3V from 09/28/2020 FINDINGS: No fracture or dislocation. No lytic or blastic change. There is normal mineralization. There are minimal osteoarthritic changes involving all 3 compartments. Previously noted suprapatellar effusion is less apparent. Other findings:Exostosis is noted at the lower aspect of the patella IMPRESSION: Mild osteoarthritic change Dictated by: Brian Mayers MD 11/26/2020 11:13 Brian Mayers MD in [place] 11/26/2020 11:13
--- NOTE | 2020-11-26 09:45 | XR_ITS ---
PROCEDURE: XR HIP RT 2-3V W/PELVIS CLINICAL INDICATION: right hip pain COMPARISON: CR XR LUMBAR SPINE 2-3V from 09/28/2020 FINDINGS: No fracture or dislocation. No lytic or blastic change. The joint space is well preserved without significant arthritic change. AP view of the pelvis shows surgical clips in the left pelvic region and left lower quadrant. Pain pump catheter noted overlying L4-5 region IMPRESSION: No acute findings. Dictated by: Brian Mayers MD 11/26/2020 11:15 Brian Mayers MD in [place] 11/26/2020 11:15
== END ==
PROVIDERS: PCP Family Medicine; Visit Provider Orthopaedic Surgery
DX: M25.561 Pain in right knee (principal); M25.551 Pain in right hip
CPT/HCPCS: 73502; 73564

== ENCOUNTER 2020-12-02 08:34 | Outpatient (CLI) | payer MEDICARE, SELFPAY ==
[2020-12-02 08:39] VITALS: BMI 26.6
[2020-12-02 09:34] LABS: Basophils # 0.1 K/mm3 (0-0.2); Basophils % 1.4 % (0.1-2.0); Eosinophils # 0.4 K/mm3 (0.0-0.4); Eosinophils % 6.2 % (0.1-12.0); Hematocrit 34.4 % (37.0-47.0); Hemoglobin 10.7 g/dL (12.2-16.2); Lymphocytes # 1.1 K/mm3 (0.7-4.5); Lymphocytes % 18.3 % (10-50); Mean Corpuscular HGB Conc 31.2 g/dL (31.8-35.4); Mean Corpuscular Hemoglobin 26.4 pg (27.0-31.2); Mean Corpuscular Volume 84.6 fl (81-99); Mean Platelet Volume 7.6 fl (7.4-10.4); Monocytes # 0.3 K/mm3 (0.1-1.0); Monocytes % 5.9 % (1.7-9.3); Neutrophils # 3.9 K/mm3 (1.8-7.8); Neutrophils % 68.1 % (37.0-80.0); Platelet Count 391 K/mm3 (142-424); Red Blood Count 4.06 M/mm3 (4.20-5.40); Red Cell Distribution Width 14.1 % (11.5-17.5); White Blood Count 5.7 K/mm3 (4.8-10.8)
[2020-12-02 09:39] LABS: Alanine Aminotransferase 10 U/L (12-78); Albumin Level 4.2 g/dl (3.5-5.0); Albumin/Globulin Ratio 1.3 (1.1-1.8); Alkaline Phosphatase 95 U/L (38-126); Anion Gap 14.9 mEq/L (5-15); Aspartate Amino Transferase 18 U/L (14-36); Bilirubin,Total 0.4 mg/dl (0.2-1.3); Blood Urea Nitrogen 14 mg/dl (7-17); Calcium 9.1 mg/dl (8.4-10.2); Carbon Dioxide 30 mmol/L (22.0-30.0); Chloride 97 mmol/L (98-107); Creatinine Clearance Estimated 102 mL/min (50-200); Estimated Glomerular Filt Rate 86 ml/min (>60); GFR (African American) 104 ML/MIN (>60); Globulin 3.2 g/dL (1.3-3.2); Glucose 134 mg/dl (74-100); Potassium 3.9 mmoL/L (3.5-5.1); Sodium 138 mmol/L (136-145); Total Protein,Serum 7.4 g/dl (6.3-8.2)
[2020-12-02 10:10] LABS: Thyroid Stimulating Hormone 1.09 uIU/mL (0.465-4.68)
[2020-12-03 13:34] LABS: Adrenocorticotropic Hormone 36.4 pg/mL (7.2-63.3)
== END 2020-12-02 09:05 | disposition home or self-care (01) ==
LOC: INF 08:36
PROVIDERS: PCP Family Medicine; Visit Provider Internal Medicine Medical Oncology
DX: C64.9 Malignant neoplasm of unspecified kidney, except renal pelvis (principal); Z79.899 Other long term (current) drug therapy
CPT/HCPCS: 80053; 82024; 82533; 84443; 85025

== ENCOUNTER → 2020-12-10 16:18 | Outpatient (CLI) | payer MEDICARE, SELFPAY ==
--- NOTE | 2020-12-10 16:18 | MR_ITS ---
PROCEDURE INFORMATION: Exam: MR Thoracic Spine Without Contrast Exam date and time: 12/10/2020 4:18 PM Age: 55 years old Clinical indication: Patient HX: Right leg numbness and weakness, renal cell cancer; Additional info: Paresthesia and weakness in lower extremity TECHNIQUE: Imaging protocol: Multiplanar magnetic resonance images of the thoracic spine without contrast. COMPARISON: CT ABDOMEN PELVIS W CON 09/07/2020 10:35 AM FINDINGS: Vertebrae: Unremarkable. Spinal cord: See Discs/Spinal canal/Neural foramina finding. Discs/Spinal canal/Neural foramina: There are degenerative changes throughout the thoracic spine including disc space narrowing, disc desiccation, and disc bulging. There is no significant spinal canal stenosis or thoracic cord compression. Soft tissues: Unremarkable. Mediastinal space: There are extensive bilateral lung parenchymal changes and suspected mediastinal mass, not adequately characterized on this exam. A mediastinal mass was reported previously. IMPRESSION: 1. There are degenerative changes throughout the thoracic spine including disc space narrowing, disc desiccation, and disc bulging. There is no significant spinal canal stenosis or thoracic cord compression. 2. There are extensive bilateral lung parenchymal changes and suspected mediastinal mass, not adequately characterized on this exam. A mediastinal mass was reported previously. Clinical findings will determine the need for further evaluation with dedicated postcontrast CT scan of the chest.
--- NOTE | 2020-12-10 16:18 | MR_ITS ---
PROCEDURE INFORMATION: Exam: MR Lumbar Spine Without Contrast Exam date and time: 12/10/2020 4:18 PM Age: 55 years old Clinical indication: Patient HX: Right leg numbness and weakness, renal cell cancer; Additional info: Paresthesia weakness in lower extremity TECHNIQUE: Imaging protocol: Multiplanar magnetic resonance images of the lumbar spine without intravenous contrast. COMPARISON: CR XR LUMBAR SPINE 2-3V 09/28/2020 11:43 AM FINDINGS: Tubes, catheters and devices: There is a poorly defined intradural/extramedullary mass in the right spinal canal at the L2 level, not adequately characterized on this exam. Differential diagnosis includes a nerve root tumor, less likely metastasis. Alternatively, this could represent a conglomeration of nerve roots that has the appearance of a mass. Vertebrae: Unremarkable. Spinal cord: Normal signal. No cord compression. T12-L1: There is degenerative disc disease including disc space narrowing and dessication. There is a moderate disc bulge with a small superimposed central disc herniation. Disc bulging extends into both neural foramen causing mild bilateral neural foraminal narrowing. There is facet arthropathy and ligamentum flavum hypertrophy. There is mild spinal canal stenosis. L1-L2: There is disc desiccation. There is mild disc bulging. There is facet arthropathy and ligamentum flavum hypertrophy. L2-L3: There is disc desiccation. There is mild disc bulging. Disc bulging extends into both neural foramen causing mild bilateral neural foraminal narrowing. There is facet arthropathy and ligamentum flavum hypertrophy. L3-L4: There is disc desiccation. There is mild disc bulging. Disc bulging extends into both neural foramen causing mild bilateral neural foraminal narrowing. There is facet arthropathy and ligamentum flavum hypertrophy. L4-L5: There is disc desiccation. There is mild disc bulging. Disc bulging extends into both neural foramen causing mild bilateral neural foraminal narrowing. There is facet arthropathy and ligamentum flavum hypertrophy. There is moderate spinal canal stenosis. L5-S1: There is mild retrolisthesis at this level. There is disc space narrowing and desiccation. There are moderate degenerative end plate changes at this level. There is a moderate disc/osteophyte complex that flattens the ventral thecal sac. There is moderate bilateral neural foraminal narrowing, left worse than right. Soft tissues: See Tubes, catheters and devices finding. Kidneys and ureters: The left kidney is atrophic. There is a 5 cm left renal mass consistent with patient's known renal cell carcinoma. IMPRESSION: 1. There is a poorly defined intradural/extramedullary mass in the right spinal canal at the L2 level just below the conus medullaris, not adequately characterized on this exam. Differential diagnosis includes a nerve root tumor, less likely metastasis. Alternatively, this could represent a conglomeration of nerve roots that has the appearance of a mass. Direct comparison to prior exams is recommended. Follow-up postcontrast MRI is recommended. 2. Moderate multilevel degenerative changes causing varying degrees of spinal canal and neuroforaminal narrowing. Please see details above. 3. Left renal cell carcinoma as described above.
== END ==
PROVIDERS: PCP Family Medicine; Visit Provider Orthopaedic Surgery
DX: R20.2 Paresthesia of skin (principal); M54.6 Pain in thoracic spine; M54.5 Low back pain
CPT/HCPCS: 72146; 72148; 76376

== ENCOUNTER → 2020-12-13 09:18 | Outpatient (POV) | payer MEDICARE, SELFPAY ==
[2020-12-13 09:38] VITALS: BP 149/93; PULSE 68; RESP 18; O2SAT 98; BMI 27.6
--- NOTE | 2020-12-13 09:44 | HMH.PAINSOAP ---
[facility] Pain Management SOAP Note Subjective:: Patient is a 55-year-old white female who presents today for follow-up. Patient recently had her intrathecal pain pump explanted. She is managed with oral medications of oxycodone, gabapentin and fentanyl Duragesic patch. Patient does have metastatic cancer. Patient rates her pain a 2 out of 10 today. The medications are working well for her at this time. She was not getting relief with her intrathecal pump, and as result, did have it removed. Patient does have an appointment with Dr. Villagomez and Dr. Bowling. She did have an MRI of her thoracic and lumbar spine, however, it is not reported into the system at this time. Patient is currently taking fentanyl Duragesic patch 12 mcg an hour, oxycodone 10 mg 1 tablet p.o. 3 times daily, and gabapentin 300 mg 1 tablet p.o. twice daily. She denies any side effects to the medication. Edgar and drug screen are appropriate. Review of Systems General: No recent weight changes, no fever, no sleep disturbances Respiratory: No cough, no shortness of air, no recurring pulmonary infections Cardiovascular/peripheral vascular: No chest pain, no palpitations, no edema, no shortness of breath Gastrointestinal: No new onset incontinence, normal bowel movements reported Genitourinary: No new onset incontinence Musculoskeletal: Right low back pain with radiation into right lower extremity, numbness and tingling in right foot Psychiatric: [Normal mood/affect] Neurological: Weakness right lower extremity Objective:: Physical exam General: Alert and oriented x3, no acute distress, pleasant and cooperative, [on room air] Lungs: Respirations even and unlabored, symmetrical chest expansion Eyes: PERRL Musculoskeletal: Flexion and extension of lumbar [spine] somewhat guarded secondary to pain, strength in upper and lower extremities [5/5], [antalgic gait noted] Neurological: Speech clear, [ceramic coater equal], no gross sensory deficit Assessment:: Degenerative disc disease lumbar spine with lumbar radiculopathy symptoms, right sacroiliitis, metastatic cancer Plan:: Patient does not need refills on her fentanyl Duragesic patch. She will need a refill on her gabapentin 300 mg 1 tablet p.o. twice daily and her oxycodone 10 mg 1 tablet p.o. 3 times daily before her next appointment. We will plan to follow-up with the patient in 1 month for reevaluation symptoms. She will be seeing Dr. Bowling in the a.m. to review her MRI results. Risks and benefits of the medication have been explained in detail to the patient. The patient has been advised to consult with his/her primary care provider and pharmacist regarding drug-drug interaction of medications currently prescribed. Patient has been prescribed a controlled substance after being counseled on the medication, medication safety, and possible side effects. EDGAR report has been obtained and reviewed prior to prescription and found to be appropriate. Opioid contract was reviewed and signed by the patient, and that they have agreed to all of the terms set forth by our compliance program. Patient has been instructed to contact the clinic with any concerns before the next appointment. Dr. Daniels has reviewed this note and agrees with this plan of care. This note was dictated using voice recognition software and make contain errors or omissions. [facility] History I have reviewed the patient's past medical history: Yes Medical History: Reports:: Anxiety, Cancer, Congestive Heart Failure, Depression, Hyperlipidemia, Hypertension, Migraine, Renal Disease Denies:: Coronary Artery Disease, Diabetes Mellitus Type 1, Diabetes Mellitus Type 2, Internal Pacemaker, MRSA, Seizures *Have you ever received a pneumonia vaccine?: Yes *Have you received a flu vaccine this season?: No Other Medical History: Reports: Anemia, Arthritis, Blood Transfusion Reaction, Chemotherapy, Hormone Therapy, Hypothyroidism, Liver Disease, Radiation Therapy, Thyroid Dis
== END ==
PROVIDERS: Visit Provider Clinical Nurse Specialist Family Health
DX: M51.16 Intervertebral disc disorders with radiculopathy, lumbar region (principal); M46.1 Sacroiliitis, not elsewhere classified; C64.9 Malignant neoplasm of unspecified kidney, except renal pelvis
CPT/HCPCS: 99212; G0463

== ENCOUNTER → 2020-12-22 15:17 | Outpatient (CLI) | payer MEDICARE, SELFPAY ==
[2020-12-22 16:12] LABS: Basophils # 0.1 K/mm3 (0-0.2); Basophils % 1.1 % (0.1-2.0); Eosinophils # 0.4 K/mm3 (0.0-0.4); Eosinophils % 3.4 % (0.1-12.0); Hematocrit 35.9 % (37.0-47.0); Hemoglobin 11.1 g/dL (12.2-16.2); Mean Corpuscular Hemoglobin 26.8 pg (27.0-31.2); Mean Corpuscular Volume 86.5 fl (81-99); Mean Platelet Volume 8.3 fl (7.4-10.4); Monocytes # 0.5 K/mm3 (0.1-1.0); Monocytes % 4.8 % (1.7-9.3); Neutrophils # 8.3 K/mm3 (1.8-7.8); Neutrophils % 80.6 % (37.0-80.0); Platelet Count 375 K/mm3 (142-424); Red Blood Count 4.15 M/mm3 (4.20-5.40); Red Cell Distribution Width 14.7 % (11.5-17.5); White Blood Count 10.3 K/mm3 (4.8-10.8)
[2020-12-22 17:15] LABS: Chloride 101 mmol/L (98-107); Potassium 4.5 mmoL/L (3.5-5.1); Sodium 137 mmol/L (136-145)
[2020-12-22 17:17] LABS: Blood Urea Nitrogen 23 mg/dl (7-17)
[2020-12-22 17:18] LABS: Alanine Aminotransferase 13 U/L (12-78); Albumin Level 3.6 g/dl (3.5-5.0); Albumin/Globulin Ratio 1.4 (1.1-1.8); Alkaline Phosphatase 97 U/L (38-126); Anion Gap 12.5 mEq/L (5-15); Aspartate Amino Transferase 19 U/L (14-36); Bilirubin,Total 0.2 mg/dl (0.2-1.3); Calcium 8.6 mg/dl (8.4-10.2); Carbon Dioxide 28 mmol/L (22.0-30.0); Estimated Glomerular Filt Rate 65 ml/min (>60); GFR (African American) 78 ML/MIN (>60); Globulin 2.6 g/dL (1.3-3.2); Glucose 138 mg/dl (74-100); Total Protein,Serum 6.2 g/dl (6.3-8.2)
== END ==
PROVIDERS: Visit Provider Internal Medicine Medical Oncology
DX: M54.5 Low back pain (principal); R26.9 Unspecified abnormalities of gait and mobility
CPT/HCPCS: 36415; 80053; 85025

== ENCOUNTER → 2020-12-23 08:29 | Outpatient (CLI) | payer MEDICARE, SELFPAY ==
--- NOTE | 2020-12-23 08:39 | MR_ITS ---
PROCEDURE INFORMATION: Exam: MR Lumbar Spine With Contrast Exam date and time: 12/23/2020 8:39 AM Age: 55 years old Clinical indication: Low back pain; Additional info: Back pain, difficulty walking TECHNIQUE: Imaging protocol: Multiplanar magnetic resonance images of the lumbar spine with intravenous contrast. Contrast material: PROHANCE; Contrast volume: 15 ml; Contrast route: IV; COMPARISON: MR LUMBAR SPINE WO CON no 4:31 PM FINDINGS: Vertebrae: There is 4 mm of grade 1 retrolisthesis of L5 with respect to S1. Normal vertebral body alignment is otherwise preserved. Vertebral body heights are within normal limits. Spinal cord: The conus medullaris terminates at T12/L1. There is redemonstration of intradural extramedullary oblong lesion within the right aspect of the canal at from L1/2 through L3/4. This demonstrates a peripheral pattern of enhancement. Levels: Please refer to the preceding noncontrast enhanced lumbar MRI from 12/10/2020 for detailed level to level analysis. 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 Neuro surgical evaluation is recommended.
== END ==
PROVIDERS: PCP Family Medicine; Visit Provider Internal Medicine Medical Oncology
DX: M54.5 Low back pain (principal); G95.89 Other specified diseases of spinal cord; M79.604 Pain in right leg
CPT/HCPCS: 72149; A9576

== ENCOUNTER → 2021-01-20 11:26 | Outpatient (POV) | payer MEDICARE, SELFPAY ==
[2021-01-20 11:36] VITALS: BP 131/74; PULSE 87; RESP 18; O2SAT 96; BMI 29.1
--- NOTE | 2021-01-20 12:25 | HMH.PAINSOAP ---
[facility] Pain Management SOAP Note Subjective:: Patient is a 55-year-old white female who presents today for medication refills. 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 She had an intrathecal pain pump implanted in the past for which has since been removed. Patient does still have the catheter in place from the intrathecal pump. This was not removed during explant. Patient did see Dr. Villagomez with orthopedics who informed her she likely had a spinal tumor. He did refer the patient to neurosurgery at [facility], office in [facility]. Patient says that after further evaluation the neurosurgeon did determined that the patient likely has a cluster of nerves directly above the catheter site that raises concern for the neurosurgeon. Patient says that she was informed that this may be contributing to her worsening symptoms of right leg pain and numbness and tingling. Patient is managed in the clinic with fentanyl Duragesic patch 12 mcg an hour and oxycodone 10 mg 1 tablet p.o. 3 times daily, as well as gabapentin 3 mg 1 tablet p.o. twice daily. She is scheduled to follow-up with neurosurgery regarding the questionable cluster of nerves above her catheter site. Patient says that the neurosurgeon was questioning why the catheter was not removed at time of explant. She does say that neurosurgery will be consulting with pain management and colleagues with and the neurosurgery department to determine if it is safe to remove the catheter due to the nerves above. Today, she rates her pain a 2 out of 10 but is having difficulty standing and walking due to worsening symptoms in her right lower extremity. Review of Systems General: No recent weight changes, no fever, no sleep disturbances Respiratory: No cough, no shortness of air, no recurring pulmonary infections Cardiovascular/peripheral vascular: No chest pain, no palpitations, no edema, no shortness of breath Gastrointestinal: No new onset incontinence, normal bowel movements reported Genitourinary: No new onset incontinence Musculoskeletal: Low back pain with worsening right leg pain and numbness and tingling in right leg Psychiatric: [Normal mood/affect] Neurological: Weakness in lower extremities Objective:: Physical exam General: Alert and oriented x3, no acute distress, pleasant and cooperative Lungs: Respirations even and unlabored, symmetrical chest expansion Eyes: PERRL Musculoskeletal: Flexion and extension of lumbar [spine] somewhat guarded secondary to pain, [antalgic gait noted] Neurological: Speech clear, no gross sensory deficit Assessment:: Degenerative disc disease lumbar spine with lumbar radiculopathy symptoms, metastatic cancer Plan:: Patient will get medications refilled fentanyl Duragesic patch 12 mcg an hour, oxycodone 10 mg 1 tablet p.o. 3 times daily, gabapentin 3 her milligrams 1 tablet p.o. twice daily. Patient is unsure of the neurosurgeons name that she was consulted with. Patient has been advised that Dr. Daniels can discuss the patient in detail with the neurosurgeon if needed. She says that at this time he plans to discuss options with his colleagues and pain management with [facility]. We will plan to see the patient back in 1 month for medication refill. Risks and benefits of the medication have been explained in detail to the patient. The patient does understand the risk of dependence on the medication when given over a prolonged period. Patient has been advised of risks of oversedation with the prescribed medication. Narcan has been offered to the paitent in the event of oversedation. Patient has been advised that a family member should also be educated regarding administration of Narcan. The patient has been advised to consult with his/her primary care provider and pharmacist regarding drug-drug interaction of medication
[2021-01-20 12:48] LABS: Benzodiazepines Screen,Urine Negative ng/ml (<200)
[2021-01-20 12:49] LABS: Amphetamine/Metha Screen,Urine Negative ng/ml (<1000)
[2021-01-20 12:50] LABS: Barbiturates Screen,Urine Negative ng/ml (<200); Methadone Screen,Urine Negative ng/ml (<300)
[2021-01-20 12:51] LABS: Cannabinoid Screen,Urine Negative ng/ml (<50); Cocaine Screen,Urine Negative ng/ml (<300)
[2021-01-20 12:52] LABS: Opiate Screen,Urine Positive ng/ml (<300)
[2021-01-20 12:53] LABS: Phencyclidine Screen,Urine Negative ng/ml (<25)
== END ==
PROVIDERS: Visit Provider Clinical Nurse Specialist Family Health
DX: M51.16 Intervertebral disc disorders with radiculopathy, lumbar region (principal); Z79.891 Long term (current) use of opiate analgesic
CPT/HCPCS: 80305; 99212; G0463

== ENCOUNTER → 2021-01-31 10:50 | Outpatient (CLI) | payer MEDICARE, SELFPAY ==
--- NOTE | 2021-01-31 11:06 | CT_ITS ---
PROCEDURE: CT ABDOMEN PELVIS W CON CLINICAL INDICATION: RENAL CELL CARCINOMA COMPARISON: CT CT ABDOMEN PELVIS W CON from 09/07/2020 TECHNIQUE: IV Contrast: 75ML Isovue 370 Oral Contrast 450ml Redicat Axial images obtained with sagittal and coronal reformats. All CT scans at the facility use one or more dose reduction, viz: automated exposure control, ma/kV adjustment per patient size (including targeted exams where dose is matched to indication, i.e. head), or iterative reconstruction technique. FINDINGS: Ill-defined areas of decreased attenuation are once again noted in the right hepatic lobe in 2 different areas. These are not significantly changed with no new hepatic lesions apparent no change in the partially calcified left renal mass consistent with renal cell carcinoma. Atrophic changes are noted of the left kidney. The right kidney and adrenal glands, and gallbladder have an unremarkable appearance. Pancreatic atrophy. No obvious pancreatic mass or evidence of pancreatitis. 12 mm cyst lower pole right kidney. No intestinal obstruction or free air. No evidence of appendicitis or diverticulitis. There has been a prior hysterectomy. No intestinal obstruction or free air. There is mild thickening of the descending colon. Intrathecal catheter is present as before. IMPRESSION: 1. Overall no significant change. Stable hypodense lesions of the right hepatic lobe. 2. Partially calcified left renal mass unchanged 3. Mild nonspecific thickening of the descending colon. This could be related to mild colitis or nondistention. Dictated by: Brian Mayers MD 02/01/2021 09:01 Brian Mayers MD in [place] 02/01/2021 09:01
--- NOTE | 2021-01-31 11:06 | CT_ITS ---
PROCEDURE: CT CHEST W CON CLINCAL INDICATION: RENAL CELL CARCINOMA COMPARISON: CT CT CHEST W CON from 09/07/2020 TECHNIQUE: IV Contrast: 75ml Isovue 370 Axial images obtained with sagittal and coronal reformats. All CT scans at the facility use one or more dose reduction, viz: automated exposure control, ma/kV adjustment per patient size (including targeted exams where dose is matched to indication, i.e. head), or iterative reconstruction technique. FINDINGS: There is extensive left axillary adenopathy which has progressed compared to the previous exam. The largest node is 4 x 2.8 x 4 cm previously 3.2 by 2.1 x 4 cm. Extensive mediastinal adenopathy is present in the anterior mediastinum on the left and in the AP window slightly more prominent when compared to the previous exam. Supraclavicular adenopathy is present unchanged. Atelectatic/fibrotic changes are present in the right upper lobe. Extensive consolidation is present in the left upper lobe consistent with pneumonia. This abuts the mediastinum medially. One cannot exclude the possibility of underlying nodule or mass at this region. Continued follow-up suggested. There is a small left pleural effusion which has developed in the interval. No bony destructive process apparent. IMPRESSION: 1. Slight progression the left axillary and mediastinal adenopathy 2. Dense consolidation in the left upper lobe medially consistent with pneumonia. Has the patient had interval radiation therapy? Cannot exclude the possibility of neoplastic involvement along the medial aspect of this area of consolidation. Therefore, follow-up is suggested. There is a small left pleural effusion which has developed in the interval. Dictated by: Brian Mayers MD 02/01/2021 08:55 Brian Mayers MD in [place] 02/01/2021 08:55
[2021-01-31 11:17] LABS: Basophils # 0.1 K/mm3 (0-0.2); Eosinophils # 0.5 K/mm3 (0.0-0.4); Hematocrit 35.5 % (37.0-47.0); Lymphocytes # 1.1 K/mm3 (0.7-4.5); Lymphocytes % 14.9 % (10-50); Mean Corpuscular HGB Conc 30.9 g/dL (31.8-35.4); Mean Corpuscular Hemoglobin 26.3 pg (27.0-31.2); Mean Corpuscular Volume 85.1 fl (81-99); Mean Platelet Volume 8.3 fl (7.4-10.4); Monocytes # 0.5 K/mm3 (0.1-1.0); Monocytes % 6.1 % (1.7-9.3); Neutrophils # 5.4 K/mm3 (1.8-7.8); Neutrophils % 70.9 % (37.0-80.0); Platelet Count 459 K/mm3 (142-424); Red Blood Count 4.17 M/mm3 (4.20-5.40); Red Cell Distribution Width 14.8 % (11.5-17.5); White Blood Count 7.6 K/mm3 (4.8-10.8)
[2021-01-31 11:24] LABS: Chloride 102 mmol/L (98-107); Sodium 140 mmol/L (136-145)
[2021-01-31 11:26] LABS: Alanine Aminotransferase 9 U/L (12-78); Aspartate Amino Transferase 19 U/L (14-36); Blood Urea Nitrogen 10 mg/dl (7-17); Estimated Glomerular Filt Rate 103 ml/min (>60); GFR (African American) 125 ML/MIN (>60)
[2021-01-31 11:27] LABS: Albumin Level 4.1 g/dl (3.5-5.0); Albumin/Globulin Ratio 1.4 (1.1-1.8); Alkaline Phosphatase 95 U/L (38-126); Bilirubin,Total 0.3 mg/dl (0.2-1.3); Calcium 9.1 mg/dl (8.4-10.2); Carbon Dioxide 31 mmol/L (22.0-30.0); Glucose 135 mg/dl (74-100); Total Protein,Serum 7.1 g/dl (6.3-8.2)
[2021-01-31 11:58] LABS: Thyroid Stimulating Hormone 0.27 uIU/mL (0.465-4.68)
[2021-02-01 15:10] LABS: Adrenocorticotropic Hormone 51.2 pg/mL (7.2-63.3)
== END ==
PROVIDERS: PCP Family Medicine; Visit Provider Internal Medicine Medical Oncology
DX: C64.2 Malignant neoplasm of left kidney, except renal pelvis (principal); Z79.899 Other long term (current) drug therapy
CPT/HCPCS: 36415; 71260; 74177; 80053; 82024; 82533; 84443; 85025; Q9967

== ENCOUNTER 2021-02-10 09:35 | Outpatient (CLI) | payer MEDICARE, SELFPAY ==
[2021-02-10 10:35] VITALS: BP 101/68; PULSE 79; RESP 18; TEMP 36.2; O2SAT 98
[2021-02-10 10:50] VITALS: BP 105/70; PULSE 77; RESP 18
[2021-02-10 11:05] VITALS: BP 108/70; PULSE 77; RESP 18
[2021-02-10 11:20] VITALS: BP 115/71; PULSE 79; RESP 16
[2021-02-10 11:35] VITALS: BP 120/77; PULSE 80; RESP 16
== END 2021-02-10 11:50 | disposition home or self-care (01) ==
LOC: INF 09:36
PROVIDERS: PCP Family Medicine; Visit Provider Internal Medicine Medical Oncology
DX: Z51.11 Encounter for antineoplastic chemotherapy (principal); C64.9 Malignant neoplasm of unspecified kidney, except renal pelvis; C80.0 Disseminated malignant neoplasm, unspecified
CPT/HCPCS: 96413; J9299

== ENCOUNTER → 2021-02-17 10:27 | Outpatient (POV) | payer MEDICARE, SELFPAY ==
[2021-02-17 10:34] VITALS: BP 135/71; PULSE 94; RESP 18; O2SAT 95; BMI 29.2
--- NOTE | 2021-02-17 10:57 | HMH.PAINSOAP ---
[facility] Pain Management SOAP Note Subjective:: Patient is a 55-year-old white female who presents today for medication refills. Patient was recently seen by her primary care provider?Dr. Toro. She is having worsening lower extremity pain with her legs giving out . She is also having numbness and tingling in her lower extremities. He did suggest increasing the patient's gabapentin. She is on a low-dose of gabapentin at this time at 300 mg 1 tablet p.o. twice daily. Patient says that she has always had issues with her right knee giving out . She is now having the same type of symptoms in her left knee. She is having difficulty standing and walking and does need assistance with a cane as well as her son. She is managed for metastatic cancer in our clinic along with degenerative disc disease lumbar spine and lumbar radicular symptoms. She did have an intrathecal pain pump placed in the past that is no longer being used. We manage the patient with oxycodone 10 mg 1 tablet p.o. 3 times daily, gabapentin 300 mg 1 tablet p.o. twice daily, fentanyl 12 mcg an hour. She denies any side effects to the medications. Her pain is a 2 out of 10 at this time. Review of Systems General: No recent weight changes, no fever, no sleep disturbances Respiratory: No cough, no shortness of air, no recurring pulmonary infections Cardiovascular/peripheral vascular: No chest pain, no palpitations, no edema, no shortness of breath Gastrointestinal: No new onset incontinence, normal bowel movements reported Genitourinary: No new onset incontinence Musculoskeletal: Bilateral lower extremity pain with legs giving out Psychiatric: [Normal mood/affect] Neurological: Weakness bilateral lower extremities, frequent falls Objective:: Physical exam General: Alert and oriented x3, no acute distress, pleasant and cooperative Lungs: Respirations even and unlabored, symmetrical chest expansion Eyes: PERRL Musculoskeletal: Flexion and extension of lumbar [spine] somewhat guarded secondary to pain, [antalgic gait noted] Neurological: Speech clear, no gross sensory deficit Assessment:: Degenerative disc disease lumbar spine with lumbar radiculopathy symptoms, metastatic cancer Plan:: We will continue the patient's fentanyl 12 mcg an hour, oxycodone 10 mg 1 tablet p.o. 3 times daily and will increase patient's gabapentin to 300 mg 1 tablet p.o. 3 times daily for 1 week and will increase up to 4 times daily if the patient is able to tolerate the medication. We will plan to see her back in the clinic in 1 month for medication refill. Risks and benefits of the medication have been explained in detail to the patient. The patient does understand the risk of dependence on the medication when given over a prolonged period. Patient has been advised of risks of oversedation with the prescribed medication. Narcan has been offered to the paitent in the event of oversedation. Patient has been advised that a family member should also be educated regarding administration of Narcan. The patient has been advised to consult with his/her primary care provider and pharmacist regarding drug-drug interaction of medications currently prescribed. Patient has been prescribed a controlled substance after being counseled on the medication, medication safety, and possible side effects. EDGAR report has been obtained and reviewed prior to prescription and found to be appropriate. Opioid contract was reviewed and signed by the patient, and that they have agreed to all of the terms set forth by our compliance program. Patient has been instructed to contact the clinic with any concerns before the next appointment. Dr. Daniels has reviewed this note and agrees with this plan of care. This note was dictated using voice recognition software and make contain errors or omissions. [facility] History I have reviewed the patient's past medical history: Yes Medical History: Reports:: Anxiety,
== END ==
PROVIDERS: Visit Provider Clinical Nurse Specialist Family Health
DX: M51.16 Intervertebral disc disorders with radiculopathy, lumbar region (principal); C64.9 Malignant neoplasm of unspecified kidney, except renal pelvis
CPT/HCPCS: 99212; G0463

== ENCOUNTER → 2021-03-03 09:36 | Outpatient (CLI) | payer MEDICARE, SELFPAY | PROVIDERS: PCP Family Medicine; Visit Provider Internal Medicine Medical Oncology | DX: C64.9 Malignant neoplasm of unspecified kidney, except renal pelvis (principal) ==

== ENCOUNTER → 2021-03-10 09:47 | Outpatient (CLI) | payer MEDICARE, SELFPAY ==
--- NOTE | 2021-03-10 | XR_ITS ---
PROCEDURE: XR CHEST PORTABLE CLINICAL HISTORY: COVID LIKE SYMPTOMS COMPARISON: CR [id number] XR chest portable from 10/26/2017 CR XR CHEST PORTABLE from 11/20/2019 CR XR CHEST 2V from 01/16/[address] CHEST W CON from 01/31/2021 FINDINGS: The cardiomediastinal silhouette and pulmonary vascularity are within normal limits. There is dense consolidation within the left upper lobe consistent with pneumonia. This appears similar on the previous chest CT of 01/31/2021. Patient also had mediastinal adenopathy on that exam which is obscured by the overlying pneumonia. No acute bony abnormalities. IMPRESSION: No change dense consolidation in the left upper lobe consistent with pneumonia. Cannot exclude a postobstructive process in this patient with history of renal cell carcinoma and with extensive mediastinal adenopathy. Dictated by: Brian Mayers MD 03/10/2021 16:43 Brian Mayers MD in [place] 03/10/2021 16:43
[2021-03-10 10:58] LABS: Adenovirus,PCR Not Detected (NotDetected); Bordetella Pertussis Not Detected (NotDetected); Chlamydophila Pneumoniae, PCR Not Detected (NotDetected); Coronavirus 19, PCR Not Detected (NotDetected); Coronavirus 229E Not Detected (NotDetected); Coronavirus NL63 Not Detected (NotDetected); Coronavirus OC43 Not Detected (NotDetected); Coronovirus HKU1,PCR Not Detected (NotDetected); Human Metapneumovirus Not Detected (NotDetected); Influenza A, PCR Not Detected (NotDetected); Influenza AH1, 2009 Not Detected (NotDetected); Influenza AH1, PCR Not Detected (NotDetected); Influenza AH3,PCR Not Detected (NotDetected); Influenza B, PCR Not Detected (NotDetected); Mycoplasma Pneumoniae, PCR Not Detected (NotDetected); Parainfluenza 1, PCR Not Detected (NotDetected); Parainfluenza 2, PCR Not Detected (NotDetected); Parainfluenza 3, PCR Not Detected (NotDetected); Parainfluenza 4, PCR Not Detected (NotDetected); Respiratory Syncytial Virus Not Detected (NotDetected); Rhinovirus/Enterovirus Not Detected (NotDetected)
[2021-03-10 11:25] LABS: Basophils # 0.1 K/mm3 (0-0.2); Basophils % 0.8 % (0.1-2.0); Eosinophils # 0.6 K/mm3 (0.0-0.4); Eosinophils % 9.6 % (0.1-12.0); Hematocrit 33.3 % (37.0-47.0); Hemoglobin 10.3 g/dL (12.2-16.2); Lymphocytes % 16.3 % (10-50); Mean Corpuscular HGB Conc 30.9 g/dL (31.8-35.4); Mean Corpuscular Hemoglobin 25.6 pg (27.0-31.2); Mean Corpuscular Volume 82.7 fl (81-99); Mean Platelet Volume 7.5 fl (7.4-10.4); Monocytes # 0.4 K/mm3 (0.1-1.0); Monocytes % 6.9 % (1.7-9.3); Neutrophils % 66.5 % (37.0-80.0); Platelet Count 421 K/mm3 (142-424); Red Blood Count 4.03 M/mm3 (4.20-5.40); White Blood Count 6.1 K/mm3 (4.8-10.8)
== END ==
PROVIDERS: PCP Family Medicine; Visit Provider Family Medicine
DX: Z20.822 Contact with and (suspected) exposure to COVID-19 (principal); C80.0 Disseminated malignant neoplasm, unspecified; C64.9 Malignant neoplasm of unspecified kidney, except renal pelvis; R05.1 Acute cough
CPT/HCPCS: 36415; 71045; 85025; 87581; 87632; 87798; C9803; U0003; U0005

== ENCOUNTER → 2021-03-17 10:45 | Outpatient (POV) | payer MEDICARE, SELFPAY ==
[2021-03-17 10:50] VITALS: BP 141/77; PULSE 89; RESP 18; O2SAT 96; BMI 28.9
--- NOTE | 2021-03-17 11:54 | HMH.PAINSOAP ---
[facility] Pain Management SOAP Note Subjective:: Patient is a 55-year-old white female who presents today for follow-up and for medication refills. She does have current cancer diagnosis and is being treated by her oncologist. She has also been sent to neurosurgery due to her legs giving out with numbness and tingling in bilateral legs . She is now using a cane for ambulation as well as having hand-held assist with all ambulation due to fear of falling. She is on gabapentin 300 mg 2 tablets p.o. twice daily, oxycodone 10 mg 1 tablet p.o. 3 times daily and fentanyl Duragesic patch 12 mcg an hour. The patient is having continued low back pain as well as anterior chest pain with difficulty breathing. She is not in any type of acute distress today. She does have metastatic cancer along with degenerative disc disease lumbar spine and lumbar radicular symptoms. She has had an intrathecal pain pump in the past, but has since been explanted. The patient's symptoms seem to be worsening. She has been on antibiotic therapy per report for pneumonia. There is concern for metastasis to the lungs. She says that she is scheduled to undergo CT scan for further evaluation of the area. The patient's pain is also progressively worsening. Today, at rest, the patient's pain is a 3 out of 10. She does report that she has had to take extra medicine most recently due to worsening pain. Patient does say Dr. Bowling placed her on amitriptyline which she does feel is helping, but seems to be giving her side effects of feeling hung over. Review of Systems General: No recent weight changes, no fever, no sleep disturbances Respiratory: No cough, no shortness of air, no recurring pulmonary infections Cardiovascular/peripheral vascular: No chest pain, no palpitations, no edema, no shortness of breath Gastrointestinal: No new onset incontinence, normal bowel movements reported Genitourinary: No new onset incontinence Musculoskeletal: Low back pain with bilateral lower extremity pain as well as numbness and tingling, leg weakness bilateral Psychiatric: [Normal mood/affect] Neurological: Heaviness and weakness in lower extremities with numbness and tingling Objective:: Physical exam General: Alert and oriented x3, no acute distress, pleasant and cooperative Lungs: Respirations even and unlabored, symmetrical chest expansion Eyes: PERRL Musculoskeletal: Flexion and extension of lumbar [spine] somewhat guarded secondary to pain, [antalgic gait noted] Neurological: Speech clear, no gross sensory deficit Assessment:: Degenerative disc disease lumbar spine with lumbar radiculopathy symptoms, metastatic cancer Plan:: Patient has not seen Dr. Daniels for some time. The patient's pain is changing. I do think it would be beneficial for the patient to follow-up with Dr. Daniels at next visit to discuss a medication plan of care. She is now having difficulty standing without hand-held assist as well as a cane. She is falling often. We do have her on gabapentin 300 mg 2 tablets twice daily and fentanyl Duragesic patch 12 mcg an hour. She has been taking oxycodone up to 4 times daily some days to get relief. We discussed we will increase this until she is able to see Dr. Daniels to discuss a further plan of care. She will follow up with Dr. Daniels in 1 month. [facility] #[id number] has been reviewed and is appropriate. The patient's morphine equivalent is 45. We will order Narcan for the patient to have in the event of oversedation. Risks and benefits of the medication have been explained in detail to the patient. The patient does understand the risk of dependence on the medication when given over a prolonged period. Patient has been advised of risks of oversedation with the prescribed medication. Narcan has been offered to the paitent in the event of oversedation. Patient has been advised that a family member should also be educated regarding administration of Narcan. T
[2021-03-17 13:21] LABS: Blood Urea Nitrogen 13 mg/dl (7-17); Creatinine Clearance Estimated 129 mL/min (50-200); Estimated Glomerular Filt Rate 103 ml/min (>60); GFR (African American) 125 ML/MIN (>60)
== END ==
PROVIDERS: Visit Provider Clinical Nurse Specialist Family Health
DX: M51.16 Intervertebral disc disorders with radiculopathy, lumbar region (principal); C80.0 Disseminated malignant neoplasm, unspecified
CPT/HCPCS: 36415; 82565; 84520; 99212; G0463

== ENCOUNTER → 2021-03-21 13:41 | Outpatient (CLI) | payer MEDICARE, SELFPAY ==
--- NOTE | 2021-03-21 13:47 | CT_ITS ---
PROCEDURE INFORMATION: Exam: CT Chest With Contrast; Diagnostic Exam date and time: 03/21/2021 1:47 PM Age: 55 years old Clinical indication: Condition or disease; Lung condition and disease; Pneumonia; Additional info: Pneumonia pf left upper lobe/ renal cell carcinoma TECHNIQUE: Imaging protocol: Diagnostic computed tomography of the chest with contrast. Radiation optimization: All CT scans at this facility use at least one of these dose optimization techniques: automated exposure control; mA and/or kV adjustment per patient size (includes targeted exams where dose is matched to clinical indication); or iterative reconstruction. Contrast material: ISOVUE; Contrast volume: 75 ml; Contrast route: IV; COMPARISON: CT CHEST W CON 01/31/2021 11:36 AM FINDINGS: Lungs: There is continuing extensive pneumonia involving the left upper lobe. There is no evidence of cavitation. This is associated with narrowing of the left upper lobe bronchial tree without compromise of the lingula or left lower lobe. Pleural spaces: Unremarkable. No pneumothorax. No pleural effusion. Heart: Unremarkable. No cardiomegaly. No pericardial effusion. Aorta: Unremarkable. No aortic aneurysm. Lymph nodes: There is extensive mediastinal, left hilar, and left axillary adenopathy similar to the comparison study. Liver: Upper abdomen: The visualized portions of the liver, pancreas, adrenal glands, and spleen show no significant abnormalities. Kidneys and ureters: 43 x 36 mm partially calcified mass is incompletely captured on this study previously described as arising from the left kidney. Bones/joints: Unremarkable. No acute fracture. Soft tissues: Unremarkable. IMPRESSION: 1. There is continuing extensive pneumonia involving the left upper lobe. There is no evidence of cavitation. This is associated with narrowing of the left upper lobe bronchial tree without compromise of the lingula or left lower lobe. 2. There is extensive mediastinal, left hilar, and left axillary adenopathy similar to the comparison study. 3. 43 x 36 mm partially calcified mass is incompletely captured on this study previously described as arising from the left kidney.
== END ==
PROVIDERS: PCP Family Medicine; Visit Provider Family Medicine
DX: J18.9 Pneumonia, unspecified organism (principal); C64.9 Malignant neoplasm of unspecified kidney, except renal pelvis
CPT/HCPCS: 71260; Q9967

== ENCOUNTER → 2021-03-31 14:50 | Outpatient (CLI) | payer MEDICARE, SELFPAY ==
[2021-03-31 16:08] LABS: C-Reactive Protein 13.6 mg/L (0-4)
== END ==
PROVIDERS: Visit Provider Internal Medicine Pulmonary Disease
DX: J84.10 Pulmonary fibrosis, unspecified (principal); R06.00 Dyspnea, unspecified
CPT/HCPCS: 36415; 86140

== ENCOUNTER 2021-05-12 10:21 | Outpatient (CLI) | payer MEDICARE, SELFPAY ==
--- NOTE | 2021-05-12 | CA_ITS ---
FINAL REPORT TECHNIQUE: Color Doppler, duplex Doppler and compression sonography of the right lower extremity venous system was performed. CLINICAL HISTORY: RT CALF PAIN AND BURNING RT KIDD,PT HAS RENAL CELL CA WITH METS RECEVING CHEMO FINDINGS: There is no evidence of deep venous thrombosis from the level of the groin to the calf. The veins are patent and compressible. IMPRESSION: No evidence of deep venous thrombosis right lower extremity. Reviewed, Interpreted and Dictated by Seven Temple III, MD Transcribed by Narda Pineda Authenticated by Seven Temple III, MD on 05/12/2021 01:25:42 PM [facility]
[2021-05-12 10:30] VITALS: BMI 28.9
[2021-05-12 10:47] LABS: Basophils # 0.1 K/mm3 (0-0.2); Basophils % 0.8 % (0.1-2.0); Eosinophils # 0.9 K/mm3 (0.0-0.4); Eosinophils % 12.6 % (0.1-12.0); Hematocrit 32.7 % (37.0-47.0); Hemoglobin 10.3 g/dL (12.2-16.2); Lymphocytes # 0.8 K/mm3 (0.7-4.5); Lymphocytes % 11.3 % (10-50); Mean Corpuscular HGB Conc 31.5 g/dL (31.8-35.4); Mean Corpuscular Hemoglobin 24.7 pg (27.0-31.2); Mean Corpuscular Volume 78.4 fl (81-99); Mean Platelet Volume 7.9 fl (7.4-10.4); Monocytes # 0.4 K/mm3 (0.1-1.0); Monocytes % 5.8 % (1.7-9.3); Neutrophils # 5.1 K/mm3 (1.8-7.8); Neutrophils % 69.6 % (37.0-80.0); Platelet Count 439 K/mm3 (142-424); Red Blood Count 4.17 M/mm3 (4.20-5.40); Red Cell Distribution Width 15.9 % (11.5-17.5); White Blood Count 7.3 K/mm3 (4.8-10.8)
[2021-05-12 10:58] LABS: Chloride 100 mmol/L (98-107); Potassium 4.2 mmoL/L (3.5-5.1); Sodium 135 mmol/L (136-145)
[2021-05-12 11:01] LABS: Alanine Aminotransferase 10 U/L (12-78); Albumin Level 4.5 g/dl (3.5-5.0); Albumin/Globulin Ratio 1.4 (1.1-1.8); Alkaline Phosphatase 92 U/L (38-126); Anion Gap 7.2 mEq/L (5-15); Aspartate Amino Transferase 32 U/L (14-36); Bilirubin,Total 0.7 mg/dl (0.2-1.3); Blood Urea Nitrogen 14 mg/dl (7-17); Carbon Dioxide 32 mmol/L (22.0-30.0); Creatinine Clearance Estimated 129 mL/min (50-200); Estimated Glomerular Filt Rate 103 ml/min (>60); GFR (African American) 125 ML/MIN (>60); Globulin 3.2 g/dL (1.3-3.2); Total Protein,Serum 7.7 g/dl (6.3-8.2)
[2021-05-12 11:02] LABS: Calcium 8.4 mg/dl (8.4-10.2); Glucose 89 mg/dl (74-100)
[2021-05-12 11:33] LABS: Thyroid Stimulating Hormone 3.78 uIU/mL (0.465-4.68)
[2021-05-12 12:03] VITALS: BP 130/55; PULSE 67; RESP 20; TEMP 36.2; O2SAT 97
[2021-05-12 13:10] VITALS: BP 127/71; PULSE 69; RESP 20; O2SAT 97
[2021-05-13 15:02] LABS: Adrenocorticotropic Hormone 4.1 pg/mL (7.2-63.3)
== END 2021-05-12 13:10 | disposition home or self-care (01) ==
PROVIDERS: PCP Family Medicine; Visit Provider Internal Medicine Medical Oncology
DX: Z51.11 Encounter for antineoplastic chemotherapy (principal); C64.9 Malignant neoplasm of unspecified kidney, except renal pelvis; Z79.899 Other long term (current) drug therapy; M79.661 Pain in right lower leg
CPT/HCPCS: 80053; 82024; 82533; 84443; 85025; 93971; 96413; J9299

== ENCOUNTER → 2021-05-14 12:09 | Outpatient (CLI) | payer MEDICARE, SELFPAY | PROVIDERS: PCP Family Medicine; Visit Provider Internal Medicine Pulmonary Disease | DX: Z01.812 Encounter for preprocedural laboratory examination (principal); U07.1 COVID-19 | CPT/HCPCS: C9803; U0003; U0005 ==

== ENCOUNTER → 2021-05-30 11:20 | Outpatient (POV) | payer MEDICARE, SELFPAY ==
[2021-05-30 12:01] VITALS: BP 128/71; PULSE 60; RESP 20; TEMP 36.7; O2SAT 94; BMI 28.9
--- NOTE | 2021-06-10 12:27 | P.CONS_ITS ---
[facility] Pain Management SOAP Note Subjective:: Patient is a very pleasant 55-year-old white female who presents today for follow-up and medication refills. She is currently being treated for cancer related pain and is currently undergoing treatment by her oncologist. She also has been experiencing symptoms of peripheral neuropathy. She is currently taking transdermal fentanyl patch 12 mcg per hour every 72 hours and oxycodone 10 mg 3 times daily. She states that her current pain regimen is adequately managing her chronic pain symptoms. She denies any adverse effects to the medications. She rates her pain today as a 5 out of 10. Objective:: General: Alert and oriented x3, no acute distress, pleasant and cooperative Lungs: Resps E/U, symmetric chest expansion Eyes: PERRL Musculoskeletal: limited flexion and extension of the lumbar spine secondary to pain. Deep tendon reflexes were normal in bilateral lower extremities. Motor exam was grossly intact in the bilateral lower extremities, antalgic gait noted. Neurological: Speech is clear, phlebotomy services representative equal, no gross sensory deficits Assessment:: Cancer-related pain Plan:: I discussed with we will continue transdermal fentanyl patches 12 mcg/h every 72 hours for 1 month supply #10 and oxycodone 10 mg 1 tablet p.o. 3 times daily #90 for 1 month supply. We will follow-up with this patient in 1 month for reassessment of her chronic pain symptoms and medication refills. Edson progressions reviewed and appropriate. [facility] History Medical History: Reports:: Anxiety, Cancer (renal cell with mets), Congestive Heart Failure, Depression, Hyperlipidemia, Hypertension, Migraine, Renal Disease Denies:: Coronary Artery Disease, Diabetes Mellitus Type 1, Diabetes Mellitus Type 2, Internal Pacemaker, MRSA, Seizures *Have you ever received a pneumonia vaccine?: Yes *Have you received a flu vaccine this season?: No Other Medical History: Reports: Anemia, Arthritis, Blood Transfusion Reaction, Chemotherapy, Hormone Therapy, Hypothyroidism, Liver Disease, Radiation Therapy, Thyroid Disease Laterality Cases: Left: Breast Biopsy, Right: Carpal Tunnel Release Other Surgeries: Yes: Cancer Surgery (renal biopsy;left auxillary lymph node bx), Colonoscopy, , Hysterectomy-Total, Other (renal biopsy, lt axillary node bx). No: Pacemaker Amputation: No Fractures: No - *Social History Smoking Status: Former smoker Tobacco Type: cigarettes # Packs/Day (cigarettes): 1 #Yrs smoked (if former smoker): 30 Alcohol Intake: never Alcohol Intake Frequency:: other Substance Use Type: denies use *Occupational Status:: disabled Housing: house Household Members: spouse *Travel in the last 8 weeks: None - Psychiatric History Pschychiatric History:: Reports:: Anxiety, Depression Family Hx:: Cancer, Heart Attack, Hypertension, Stroke
== END ==
PROVIDERS: Visit Provider Anesthesiology Pain Medicine
DX: G89.3 Neoplasm related pain (acute) (chronic) (principal); C64.9 Malignant neoplasm of unspecified kidney, except renal pelvis
CPT/HCPCS: 71046; 86606; 86612; 87385; 87449; 99212; G0463

== ENCOUNTER → 2021-05-30 14:28 | Outpatient (CLI) | payer MEDICARE, SELFPAY ==
--- NOTE | 2021-05-30 14:32 | XR_ITS ---
FINAL REPORT CLINICAL HISTORY: pneumonia, h/o cancer COMPARISON: March 10, 2021 FINDINGS: Two views of the chest were obtained. The heart size and pulmonary vascularity are within normal limits. The mediastinum is normal. There are worsening left upper lobe opacification that may represent atelectasis or mass. There is no pneumothorax. The bony thorax is intact. IMPRESSION: Worsening left upper lobe opacification that may represent atelectasis or mass. Recommend follow-up chest CT with contrast. Reviewed, Interpreted and Dictated by Seven Temple III, MD Transcribed by DISHA Mckeon Authenticated by Seven Temple III, MD on 05/30/2021 03:25:36 PM [facility]
[2021-06-02 16:27] LABS: Fungitell(Beta D-Glucan) Serum 31 pg/mL (<80)
[2021-06-02 17:10] LABS: Histoplasma Gal'mannan Ag Ur <0.5 (<0.5 ng/mL)
[2021-06-03 23:30] LABS: Aspergillus flavus Negative (Neg:<1:1); Aspergillus fumigatus Negative (Neg:<1:1); Aspergillus niger Negative (Neg:<1:1); Blastomyces Antibody Negative (Neg:<1:1)
== END ==
PROVIDERS: PCP Family Medicine; Visit Provider Internal Medicine Pulmonary Disease
DX: J18.9 Pneumonia, unspecified organism (principal); R06.02 Shortness of breath; J84.10 Pulmonary fibrosis, unspecified
CPT/HCPCS: 71046; 86606; 86612; 87385; 87449

== ENCOUNTER 2021-06-07 10:19 | Day surgery (SDC) | payer MEDICARE, SELFPAY ==
[2021-06-06 12:34] VITALS: BMI 28.9
[2021-06-07] VITALS (11 sets, daily range): BP systolic 116–133; BP diastolic 65–79; PULSE 78–88; RESP 16–81; TEMP 36.5–43; O2SAT 93–100
[2021-06-07 12:33] LABS: Coronavirus 19, PCR Not Detected (NotDetected); Influenza A, PCR Not Detected (NotDetected); Influenza B, PCR Not Detected (NotDetected)
--- NOTE | 2021-06-07 12:38 | P.PN_ITS ---
[facility] Anesthesia Checklist - Patient Identification Patient Identification: Arm Band - Structural Data Admitted From: Home Planned Operative Procedure/s: Bronchoscopy Consent for Planned Operative Procedure(s) Verified: Yes Verified Documents: Surgical Consent, History and Physical - NPO Status Verified Time NPO: 00:00 - Additional verifications Anesthesia Reactions: No Hx Blood Transfusions: No Blood Transfusion Reaction: Yes - Airway Assessment C-Spine Mobility Assessed: Yes (mp2) TMJ Mobility Assessed: Yes Dentition: Good Dentition - Neurological Assessment Level of Consciousness: Awake, Alert - Anesthesia Plan Anesthesia Risk discussed: Yes Anesthesia Plan: Verified ASA Class: III Anesthesia Type: General [facility] History I have reviewed the patient's past medical history: Yes Medical History: Reports:: Anxiety, Cancer, Congestive Heart Failure, Depression, Hyperlipidemia, Hypertension, Migraine, Renal Disease Denies:: Coronary Artery Disease, Diabetes Mellitus Type 1, Diabetes Mellitus Type 2, Internal Pacemaker, MRSA, Seizures *Have you ever received a pneumonia vaccine?: Yes *Have you received a flu vaccine this season?: No Other Medical History: Reports: Anemia, Arthritis, Blood Transfusion Reaction, Chemotherapy, Hormone Therapy, Hypothyroidism, Liver Disease, Radiation Therapy, Thyroid Disease Anesthesia experience/problems:: nac Laterality Cases: Left: Breast Biopsy, Right: Carpal Tunnel Release Other Surgeries: Yes: Cancer Surgery (renal biopsy;left auxillary lymph node bx), Colonoscopy, , Hysterectomy-Total, Other. No: Pacemaker Amputation: No Fractures: No - *Social History Last grade of school completed: Advanced degree Smoking Status: Former smoker Tobacco Type: cigarettes # Packs/Day (cigarettes): 1 #Yrs smoked (if former smoker): 30 Alcohol Intake: never Alcohol Intake Frequency:: other Substance Use Type: denies use *Occupational Status:: disabled Housing: house Household Members: spouse *Travel in the last 8 weeks: None - Psychiatric History Pschychiatric History:: Reports:: Anxiety, Depression Family Hx:: Cancer, Hypertension
--- NOTE | 2021-06-07 14:21 | XR_ITS ---
FINAL REPORT CLINICAL HISTORY: BRONCHOSCOPY WITH BIOPSY FINDINGS: FLUOROSCOPY <1 HR Fluoroscopic guidance was provided to the operating surfaces. Two spot films were obtained 2.9 minutes of fluoroscopy time was utilized. IMPRESSION: 2.9 minutes of fluoroscopy time. Reviewed, Interpreted and Dictated by Seven Temple III, MD Transcribed by Juan Cisneros Authenticated by Seven Temple III, MD on 06/07/2021 03:35:05 PM [facility]
--- NOTE | 2021-06-07 14:26 | XR_ITS ---
FINAL REPORT CLINICAL HISTORY: post bronchoscopy COMPARISON: May 30, 2021 FINDINGS: A single portable view of the chest was obtained. The heart size and pulmonary vascularity are within normal limits. The mediastinum is within normal limits. There is a persistent left upper lobe opacity. There is no pneumothorax. The bony thorax is intact. IMPRESSION: Persistent left upper lobe opacity. No pneumothorax post bronchoscopy. Reviewed, Interpreted and Dictated by Seven Temple III, MD Transcribed by Juan Cisneros Authenticated by Seven Temple III, MD on 06/07/2021 03:34:54 PM [facility]
--- NOTE | 2021-06-07 14:26 | P.PN_ITS ---
[facility] Anesthesia Record Part I Intake, IV Amount: 700 Estimated blood loss (mL): 0 Urine output (mL): 0 Blood Pressure: 123/76 SaO2: 93 Pulse Rate: 87 Respiratory Rate: 16 Temperature: 97.7 F Patient is:: Drowsy, Stable Stable to PACU at:: 14:25
--- NOTE | 2021-06-07 14:36 | HMH.BRONCH ---
- Procedure: Date: 06/07/21 Patient Date of :: 1965 Procedure Performed:: Bronchoscopy with airway examination, bronchoalveolar lavage and transbronchial biopsy Indications:: Nonresolving pneumonia in immunocompromised Performing Provider:: Aubrey Pablo MD Referring Provider:: Dr. Toro Sedation:: General anesthesia Procedure:: Bronchoscopy with airway examination, bronchoalveolar lavage and transbronchial biopsy: Clean diagnostic bronchoscopy advanced the ET tube and airways were examined up to sub segmental bronchi. No obvious evidence of mucous plugging/active bleeding/prior bleeding/blood clots noted. Airways in the right lung appear grossly normal. The left upper lobe bronchi appeared to be diffusely inflammatory and edematous. No obvious endobronchial lesions noted. The left upper lobe and left lingula maximo is not acutely angulated concerning for left hilar lymphadenopathy. Left lower lobe bronchus appeared grossly normal. BAL was performed in the left upper lobe, total of 60 cc of normal saline was instilled with a return of 30 cc back. BAL fluid was cell for sent for cell count differential, bacterial fungal AFB stain culture along with cytopathology. Transbronchial biopsies was also performed in the left upper lobe, a total of 10 biopsies were performed, 6 were sent in formalin for cytopathological examination, 2 samples each were sent in two normal saline specimen cups for bacterial, fungal AFB stain and cultures. Patient tolerated the procedure well. No immediate complications. To be followed with chest x-ray. We will follow the patient in pulmonary clinic in the next 10 days. We will follow with the results. Findings:: Please see the procedure note Recommendations:: Please see the procedure note Complications:: None Estimated blood obtained (mL): 5
--- NOTE | 2021-06-07 15:12 | SUR.PHASEI ---
1456 detailed report given to Adarsh Latham RN. Pt left in stable condition with post op RN.
--- NOTE | 2021-06-08 07:52 | P.PN_ITS ---
[facility] Anesthesia Record Part II Discharge Time: 14:55 Destination: Surgical Day Care (OP Surgery) PACU nurse assessment reviewed?: Yes Patient Condition:: Good Anesthesia Complications:: None Swallowing reflex intact?: Yes Cyanosis?: No Blood Pressure: 116/66 Pulse Rate: 83 Temperature: 98 F Mental Status: Alert & Oriented Pain level:: 0 Nausea and/or vomitting:: None Intake, IV Amount: 0
[2021-06-08 07:53] VITALS: BP 116/66; PULSE 83; TEMP 36.6
== END 2021-06-07 16:07 | disposition home or self-care (01) ==
LOC: OR 10:21
PROVIDERS: PCP Family Medicine; Visit Provider Internal Medicine Pulmonary Disease
DX: J18.9 Pneumonia, unspecified organism (principal); R91.1 Solitary pulmonary nodule; C64.2 Malignant neoplasm of left kidney, except renal pelvis; C78.00 Secondary malignant neoplasm of unspecified lung; C78.7 Secondary malignant neoplasm of liver and intrahepatic bile duct; Z20.822 Contact with and (suspected) exposure to COVID-19; D84.9 Immunodeficiency, unspecified; Z87.891 Personal history of nicotine dependence; Z79.899 Other long term (current) drug therapy
CPT/HCPCS: 31624; 31628; 71045; 87070; 87102; 87116; 87186; 87205; 87206; 88305; 89051; C9803; J2405; U0003; U0005

== ENCOUNTER 2021-06-09 08:11 | Outpatient (CLI) | payer MEDICARE, SELFPAY ==
[2021-06-09 09:40] VITALS: BMI 29.0
[2021-06-09 10:02] LABS: Basophils # 0.1 K/mm3 (0-0.2); Basophils % 0.9 % (0.1-2.0); Eosinophils # 0.4 K/mm3 (0.0-0.4); Eosinophils % 5.2 % (0.1-12.0); Hematocrit 33.7 % (37.0-47.0); Hemoglobin 10.2 g/dL (12.2-16.2); Lymphocytes # 0.9 K/mm3 (0.7-4.5); Lymphocytes % 12.3 % (10-50); Mean Corpuscular HGB Conc 30.2 g/dL (31.8-35.4); Mean Corpuscular Hemoglobin 23.8 pg (27.0-31.2); Mean Corpuscular Volume 78.9 fl (81-99); Mean Platelet Volume 8.3 fl (7.4-10.4); Monocytes # 0.4 K/mm3 (0.1-1.0); Monocytes % 5.2 % (1.7-9.3); Neutrophils # 5.9 K/mm3 (1.8-7.8); Neutrophils % 76.3 % (37.0-80.0); Platelet Count 380 K/mm3 (142-424); Red Blood Count 4.26 M/mm3 (4.20-5.40); Red Cell Distribution Width 16.8 % (11.5-17.5); White Blood Count 7.7 K/mm3 (4.8-10.8)
[2021-06-09 10:08] LABS: Alanine Aminotransferase 16 U/L (12-78); Albumin Level 4.5 g/dl (3.5-5.0); Albumin/Globulin Ratio 1.6 (1.1-1.8); Alkaline Phosphatase 93 U/L (38-126); Anion Gap 12.1 mEq/L (5-15); Aspartate Amino Transferase 21 U/L (14-36); Bilirubin,Total 0.4 mg/dl (0.2-1.3); Blood Urea Nitrogen 19 mg/dl (7-17); Calcium 8.7 mg/dl (8.4-10.2); Carbon Dioxide 31 mmol/L (22.0-30.0); Chloride 100 mmol/L (98-107); Creatinine Clearance Estimated 111 mL/min (50-200); Estimated Glomerular Filt Rate 86 ml/min (>60); GFR (African American) 104 ML/MIN (>60); Globulin 2.8 g/dL (1.3-3.2); Glucose 114 mg/dl (74-100); Potassium 4.1 mmoL/L (3.5-5.1); Sodium 139 mmol/L (136-145); Total Protein,Serum 7.3 g/dl (6.3-8.2)
[2021-06-09 10:38] LABS: Thyroid Stimulating Hormone 1.94 uIU/mL (0.465-4.68)
[2021-06-09 11:15] VITALS: BP 107/67; PULSE 79; RESP 18; O2SAT 95
[2021-06-09 11:30] VITALS: BP 101/63; PULSE 63; RESP 18
[2021-06-09 11:45] VITALS: BP 104/57; PULSE 75; RESP 18
[2021-06-09 12:00] VITALS: BP 97/59; PULSE 75; RESP 18
[2021-06-09 12:19] VITALS: BP 103/57; PULSE 72; RESP 18
[2021-06-09 12:29] VITALS: BP 107/63; PULSE 76; RESP 18
[2021-06-10 14:14] LABS: Adrenocorticotropic Hormone 5.6 pg/mL (7.2-63.3)
== END 2021-06-09 12:29 | disposition home or self-care (01) ==
LOC: INF 08:12
PROVIDERS: Visit Provider Internal Medicine Medical Oncology
DX: Z51.11 Encounter for antineoplastic chemotherapy (principal); C64.9 Malignant neoplasm of unspecified kidney, except renal pelvis; Z79.899 Other long term (current) drug therapy
CPT/HCPCS: 80053; 82024; 82533; 84443; 85025; 96413; J9299

== ENCOUNTER 2021-06-16 14:00 | Outpatient (RCR) | payer MEDICARE, SELFPAY ==
--- NOTE | 2021-06-06 15:04 | HMH.PTOPEV ---
PT Outpatient Evaluation Rehab PT Outpatient Evaluation Start: 06/06/21 14:12 Freq: Status: Active Protocol: Document 06/06/21 14:37 KARO (Rec: 06/06/21 15:04 KARO [id number]) Electronically Signed By Nikita Love, PT 06/06/21 14:37 Outpatient Therapy Subjective History Subjective History Pt reports h/o chronic LBP with right LE radicular s/s for ~10+yrs. Pt reports failed pain pump sx. implanted ~2 yrs ago, removed ~6months ago. Pt reports 'the plastic tubes from the pump were left in, and my neurosurgeon says they' ve irritated the nerves which is causing my right leg to get worse'. Pt also reports Stage IV kidney cancer, 'spread to my liver, and I'm getting my lungs checked out soon too'. Pt reports severe RLE weakness , falls d/t R foot drop, and N &T. Chief Complaint Pain,Stiff,Gives out/Unstable, Paresthesia,Weakness Symptom Type Ache,Sharp,Dull,Stabbing, Burning,Numbness,Tingling Symptoms Relieved By Rest/Positioning,OTC Meds, Prescription Meds Symptoms Aggravated By Standing,Bending/Stooping, Physical Activity,Walking, Lifting Prior Functional Limitations Housework,Standing,Walking Current Functional Limitations Lifting,Housework,Standing, Walking,Bending/Stooping Symptom Description Constant but Variable Level of pain today (0-10) 4 Pain scale - at its best (0-10) 1 Pain scale - at its worst (0-10) 9 Lumbopelvic Eval Posture Thoracic Spine Posture Standing Position Flattened Lumbar Spine Posture Standing Position Flattened Assistive device Assistive Devices Straight Cane Palapation tenderness left lumbar spinal tenderness Yes: 2/4 paraspinal tenderness Yes: 2/4 buttock tenderness Yes: 1-2/4 Lumbar/Sacral Palpation Findings Tenderness,Trigger Point, Muscle Guarding right lumbar spinal tenderness Yes: 3/4 paraspinal tenderness Yes: 3/4 buttock tenderness Yes: 3/4 Lumbar/Sacral Palpation Findings Tenderness,Trigger Point, Muscle Guarding Accessory Movement L-spine Vertebrae Accessory Movements Central P/A [place] that Elicit Symptoms
--- NOTE | 2021-06-10 12:23 | P.CONS_ITS ---
[facility] Pain Management SOAP Note Subjective:: This patient is a very pleasant 55-year-old white female who presents today for follow-up. She is currently being treated for degenerative disc disease of the lumbar spine with lumbar radiculopathy as well as cancer related pain. She is currently prescribed transdermal fentanyl and oxycodone and she states that her current pain regimen is adequate for her chronic pain symptoms. She denies any adverse effects medications. She is requesting pain medications today states she rates her pain today as a 4 out of 10. [facility] History Medical History: Reports:: Anxiety, Cancer (renal cell with mets), Congestive Heart Failure, Depression, Hyperlipidemia, Hypertension, Migraine, Renal Disease Denies:: Coronary Artery Disease, Diabetes Mellitus Type 1, Diabetes Mellitus Type 2, Internal Pacemaker, MRSA, Seizures *Have you ever received a pneumonia vaccine?: Yes *Have you received a flu vaccine this season?: No Other Medical History: Reports: Anemia, Arthritis, Blood Transfusion Reaction, Chemotherapy, Hormone Therapy, Hypothyroidism, Liver Disease, Radiation Therapy, Thyroid Disease Laterality Cases: Left: Breast Biopsy, Right: Carpal Tunnel Release Other Surgeries: Yes: Cancer Surgery (renal biopsy;left auxillary lymph node bx), Colonoscopy, , Hysterectomy-Total, Other (renal biopsy, lt axillary node bx). No: Pacemaker Amputation: No Fractures: No - *Social History Smoking Status: Former smoker Tobacco Type: cigarettes # Packs/Day (cigarettes): 1 #Yrs smoked (if former smoker): 30 Alcohol Intake: never Alcohol Intake Frequency:: other Substance Use Type: denies use *Occupational Status:: disabled Housing: house Household Members: spouse - Psychiatric History Pschychiatric History:: Reports:: Anxiety, Depression Family Hx:: Cancer, Heart Attack, Hypertension, Stroke
== END 2021-06-16 14:05 | disposition home or self-care (01) ==
LOC: PT 14:00
PROVIDERS: Visit Provider Anesthesiology Pain Medicine
DX: M62.81 Muscle weakness (generalized) (principal); C64.9 Malignant neoplasm of unspecified kidney, except renal pelvis; C80.0 Disseminated malignant neoplasm, unspecified; M47.816 Spondylosis without myelopathy or radiculopathy, lumbar region
CPT/HCPCS: 97010; 97012; 97014; 97110; 97163; G0283

== ENCOUNTER 2021-07-07 09:37 | Outpatient (CLI) | payer MEDICARE, SELFPAY ==
[2021-07-07 09:42] VITALS: BMI 28.6
[2021-07-07 10:15] LABS: Alanine Aminotransferase 11 U/L (12-78); Albumin Level 4.1 g/dl (3.5-5.0); Albumin/Globulin Ratio 1.3 (1.1-1.8); Alkaline Phosphatase 116 U/L (38-126); Anion Gap 9.7 mEq/L (5-15); Aspartate Amino Transferase 18 U/L (14-36); Bilirubin,Total 0.4 mg/dl (0.2-1.3); Blood Urea Nitrogen 14 mg/dl (7-17); Calcium 8.8 mg/dl (8.4-10.2); Carbon Dioxide 31 mmol/L (22.0-30.0); Chloride 102 mmol/L (98-107); Creatinine Clearance Estimated 127 mL/min (50-200); Estimated Glomerular Filt Rate 103 ml/min (>60); GFR (African American) 125 ML/MIN (>60); Globulin 3.1 g/dL (1.3-3.2); Glucose 114 mg/dl (74-100); Potassium 3.7 mmoL/L (3.5-5.1); Sodium 139 mmol/L (136-145); Total Protein,Serum 7.2 g/dl (6.3-8.2)
[2021-07-07 10:50] LABS: Basophils # 0.1 K/mm3 (0-0.2); Basophils % 0.7 % (0.1-2.0); Eosinophils # 0.5 K/mm3 (0.0-0.4); Eosinophils % 5.9 % (0.1-12.0); Hematocrit 32.4 % (37.0-47.0); Hemoglobin 9.7 g/dL (12.2-16.2); Lymphocytes # 0.9 K/mm3 (0.7-4.5); Lymphocytes % 10.6 % (10-50); Mean Corpuscular Hemoglobin 23.3 pg (27.0-31.2); Mean Corpuscular Volume 77.7 fl (81-99); Mean Platelet Volume 6.6 fl (7.4-10.4); Monocytes # 0.5 K/mm3 (0.1-1.0); Monocytes % 5.3 % (1.7-9.3); Neutrophils # 6.7 K/mm3 (1.8-7.8); Neutrophils % 77.5 % (37.0-80.0); Platelet Count 401 K/mm3 (142-424); Red Blood Count 4.17 M/mm3 (4.20-5.40); Red Cell Distribution Width 15.8 % (11.5-17.5); White Blood Count 8.6 K/mm3 (4.8-10.8)
[2021-07-07 11:25] VITALS: BP 137/71; PULSE 87; RESP 16; TEMP 35.9; O2SAT 95
[2021-07-07 11:40] VITALS: BP 114/68; PULSE 80; RESP 16
[2021-07-07 11:55] VITALS: BP 110/66; PULSE 80; RESP 16
[2021-07-07 12:10] VITALS: BP 110/64; PULSE 79; RESP 16
[2021-07-07 12:25] VITALS: BP 109/68; PULSE 77; RESP 16
== END 2021-07-07 12:40 | disposition home or self-care (01) ==
LOC: INF 09:38
PROVIDERS: PCP Family Medicine; Visit Provider Internal Medicine Medical Oncology
DX: Z51.11 Encounter for antineoplastic chemotherapy (principal); C64.9 Malignant neoplasm of unspecified kidney, except renal pelvis; Z79.899 Other long term (current) drug therapy
CPT/HCPCS: 80053; 82024; 82533; 84443; 85025; 96413; J9299

== ENCOUNTER → 2021-07-12 10:14 | Outpatient (POV) | payer MEDICARE, SELFPAY ==
[2021-07-12 10:36] VITALS: BP 132/65; PULSE 91; RESP 18; TEMP 36.6; O2SAT 92; BMI 28.9
--- NOTE | 2021-07-12 10:56 | HMH.PAINSOAP ---
[facility] Pain Management SOAP Note Subjective:: -year-old white female that we have been treating for quite some time for chronic pain secondary to renal cell carcinoma. Patient is being treated by oncology. Treated her medically with fentanyl patch 12 mcg/h every 72 hours. Oxycodon 10 mg 4 times daily. He switched her from gabapentin to Lyrica 75 mg TID. Be helping in her radiculopathy symptoms at the lower extremities. She rates her overall pain 5/10. She is very satisfied with the current medical regime of medications. [facility] #[id number] has been reviewed and appropriate. Objective:: Her oriented x3. In no acute distress. Flexion-extension lumbar spine somewhat guarded secondary to pain. Deep tendon reflexes upper and lower extremities normal. Motor strength upper lower extremities adequate. There is no gross sensory deficit. Gait is antalgic. Assessment:: Chronic pain secondary to renal carcinoma. With metastatic disease. Plan:: On the current medical management. Lyrica 75 mg 1 p.o. 3 times daily. 10 mg 1 p.o. 4 times daily. Fentanyl 12 mcg/hr every 72 hours. [facility] History Medical History: Reports:: Anxiety, Cancer (METASTATIC RENAL CELL CANCER), Congestive Heart Failure, Depression, Hyperlipidemia, Hypertension, Migraine, Renal Disease Denies:: Coronary Artery Disease, Diabetes Mellitus Type 1, Diabetes Mellitus Type 2, Internal Pacemaker, MRSA, Seizures *Have you ever received a pneumonia vaccine?: Yes *Have you received a flu vaccine this season?: No Other Medical History: Reports: Anemia, Arthritis, Blood Transfusion Reaction, Chemotherapy, Hormone Therapy, Hypothyroidism, Liver Disease, Radiation Therapy, Thyroid Disease Laterality Cases: Left: Breast Biopsy, Right: Carpal Tunnel Release Other Surgeries: Yes: Cancer Surgery (renal biopsy;left auxillary lymph node bx), Colonoscopy, , Hysterectomy-Total, Other (renal biopsy, lt axillary node bx). No: Pacemaker Amputation: No Fractures: No - *Social History Smoking Status: Former smoker Tobacco Type: cigarettes # Packs/Day (cigarettes): 1 #Yrs smoked (if former smoker): 30 Alcohol Intake: never Alcohol Intake Frequency:: other Substance Use Type: denies use *Occupational Status:: disabled Housing: house Household Members: spouse, family *Travel in the last 8 weeks: None - Psychiatric History Pschychiatric History:: Reports:: Anxiety, Depression Family Hx:: Cancer, Heart Attack, Hypertension, Stroke
== END ==
PROVIDERS: Visit Provider Nurse Anesthetist, Certified Registered
DX: G89.3 Neoplasm related pain (acute) (chronic) (principal); C64.9 Malignant neoplasm of unspecified kidney, except renal pelvis
CPT/HCPCS: 99212; G0463

== ENCOUNTER → 2021-07-21 14:49 | Outpatient (CLI) | payer MEDICARE, SELFPAY ==
[2021-07-21 15:37] LABS: Basophils # 0.1 K/mm3 (0-0.2); Basophils % 0.8 % (0.1-2.0); Eosinophils # 0.4 K/mm3 (0.0-0.4); Eosinophils % 5.1 % (0.1-12.0); Hematocrit 31.1 % (37.0-47.0); Hemoglobin 9.7 g/dL (12.2-16.2); Lymphocytes # 0.7 K/mm3 (0.7-4.5); Lymphocytes % 9.2 % (10-50); Mean Corpuscular HGB Conc 31.3 g/dL (31.8-35.4); Mean Corpuscular Hemoglobin 24.2 pg (27.0-31.2); Mean Corpuscular Volume 77.2 fl (81-99); Mean Platelet Volume 8.4 fl (7.4-10.4); Monocytes # 0.4 K/mm3 (0.1-1.0); Monocytes % 4.7 % (1.7-9.3); Neutrophils % 80.1 % (37.0-80.0); Platelet Count 430 K/mm3 (142-424); Red Blood Count 4.03 M/mm3 (4.20-5.40); Red Cell Distribution Width 17.2 % (11.5-17.5); White Blood Count 7.4 K/mm3 (4.8-10.8)
[2021-07-21 16:46] LABS: Chloride 105 mmol/L (98-107); Potassium 4.4 mmoL/L (3.5-5.1); Sodium 139 mmol/L (136-145)
[2021-07-21 16:48] LABS: Alanine Aminotransferase 11 U/L (12-78); Alkaline Phosphatase 110 U/L (38-126); Aspartate Amino Transferase 18 U/L (14-36); Bilirubin,Total 0.3 mg/dl (0.2-1.3); Blood Urea Nitrogen 14 mg/dl (7-17); Estimated Glomerular Filt Rate 103 ml/min (>60); GFR (African American) 124 ML/MIN (>60)
[2021-07-21 16:49] LABS: Albumin Level 3.5 g/dl (3.5-5.0); Albumin/Globulin Ratio 1.4 (1.1-1.8); Anion Gap 5.4 mEq/L (5-15); Carbon Dioxide 33 mmol/L (22.0-30.0); Globulin 2.5 g/dL (1.3-3.2); Glucose 110 mg/dl (74-100)
== END ==
PROVIDERS: Visit Provider Internal Medicine Medical Oncology
DX: C64.9 Malignant neoplasm of unspecified kidney, except renal pelvis (principal)
CPT/HCPCS: 36415; 80053; 85025

== ENCOUNTER → 2021-07-22 08:13 | Outpatient (CLI) | payer MEDICARE, SELFPAY ==
--- NOTE | 2021-07-22 08:19 | CT_ITS ---
FINAL REPORT TECHNIQUE: Axial CT images of the abdomen and pelvis were obtained before and after the administration of IV contrast. Oral contrast was administered.This study was performed with techniques to keep radiation doses as low as reasonably achievable (ALARA). Individualized dose reduction techniques using automated exposure control or adjustment of mA and/or kV according to the patient''s size were employed. CLINICAL HISTORY: RENAL CELL CA COMPARISON: January 31, 2021 FINDINGS: Abdomen: The heart is normal in size. There are stable nonspecific low-attenuation foci in the right hepatic lobe of uncertain etiology. There are no new hepatic abnormalities. There is a very small amount of free fluid in the right perihepatic space. Gallbladder is present. The spleen is unremarkable. No adrenal masses present. The pancreas has an unremarkable appearance. There is severe left renal atrophy. A partially calcified 3.8 cm mass in the upper pole of the left kidney previously measured 3.8 cm and is worrisome for neoplasm. There is a stable, small cyst in the lower pole the right kidney. There is a small amount of para-aortic soft tissue, stable from prior. The aorta is normal in caliber. Intrathecal catheter is present. Pre-contrast images demonstrate no evidence of nephrolithiasis. Pelvis: The appendix is normal. The urinary bladder is unremarkable. No inflammatory process is seen. There has been hysterectomy. There is no evidence of bowel obstruction. IMPRESSION: Stable, partially calcified mass in the upper pole of the left kidney worrisome for neoplasm. Stable, nonspecific low-attenuation foci in the right hepatic lobe of uncertain etiology. Reviewed, Interpreted and Dictated by Seven Temple III, MD Transcribed by Juan Cisneros Authenticated by Seven Temple III, MD on 07/22/2021 10:06:04 AM [facility]
--- NOTE | 2021-07-22 08:19 | CT_ITS ---
FINAL REPORT TECHNIQUE: Axial images through the chest were performed by computed tomography before and after the administration of IV contrast. This study was performed with techniques to keep radiation doses as low as reasonably achievable, (ALARA). Individualized dose reduction techniques using automated exposure control or adjustment of mA and/or kV according to the patient's size were employed. CLINICAL HISTORY: RENAL CELL CA COMPARISON: March 21, 2021 FINDINGS: There is widespread mediastinal and left hilar adenopathy which is overall worse. A left hilar lymph node measures 3.9 cm and previously measured 1.8 cm. Other lymph nodes are also larger. There is widespread left axillary and left subpectoral adenopathy. A left subpectoral lymph node measures 3.8 cm and previously measured 2.8 cm. Other left axillary lymph nodes are larger. The heart size is normal. There is a new small pericardial effusion. There is a worsening of moderate left pleural effusion. Limited images of the upper abdomen are unremarkable. There is diffuse consolidation of the left upper lobe and lingula, worse. There is left basilar atelectasis which is worse. There is worsening left breast skin thickening and left breast edema. IMPRESSION: Worsening adenopathy in the thorax and left axilla most consistent with worsening neoplastic involvement. Worsening left lung consolidation. Worsening left pleural effusion. Worsening left breast skin thickening and edema. Reviewed, Interpreted and Dictated by Seven Temple III, MD Transcribed by Shawna Paulino Authenticated by Seven Temple III, MD on 07/22/2021 11:14:[address] [facility]
== END ==
PROVIDERS: PCP Family Medicine; Visit Provider Internal Medicine Medical Oncology
DX: C64.9 Malignant neoplasm of unspecified kidney, except renal pelvis (principal)
CPT/HCPCS: 71270; 74178; Q9967

== ENCOUNTER → 2021-07-27 07:52 | Outpatient (CLI) | payer MEDICARE, SELFPAY ==
--- NOTE | 2021-07-27 08:12 | US_ITS ---
FINAL REPORT CLINICAL HISTORY: LT PLUERAL EFFUSION 750 ml drained by gerardo santoyo FINDINGS: ULTRASOUND-GUIDED THORACENTESIS HISTORY: Pleural effusion. ATTENDING PHYSICIAN: Dr. Olea PHYSICIAN [employer] COUNSELOR: Gerardo Perry PA-C TECHNIQUE: Informed consent was obtained from the patient. The indications and complications were discussed with the patient prior to beginning the procedure. This included, but was not limited to pain, bleeding, infection, and pneumothorax requiring chest tube placement. The left back was then prepped and draped in sterile fashion. 1% Lidocaine was used for local anesthesia. Utilizing sonographic guidance, a standard thoracentesis needle and sheath were inserted into the pleural space and approximately 750 mL of clear pleural fluid was successfully removed without complication. The patient tolerated the procedure well. IMPRESSION: Technically successful sonographic guided left-sided thoracentesis as above. Reviewed, Interpreted and Dictated by Howard Olea MD Transcribed by DISHA Wayne Authenticated by Howard Olea MD on 07/27/2021 10:48:45 AM [facility]
[2021-07-27 08:13] VITALS: BP 122/70; PULSE 84; RESP 19; TEMP 36.6; O2SAT 97; BMI 29.6
--- NOTE | 2021-07-27 08:48 | XR_ITS ---
FINAL REPORT TECHNIQUE: Chest PA & Lateral CLINICAL HISTORY: POST THOROCENTESIS COMPARISON: June 07, 2021 FINDINGS: 2 views of the chest were performed. The heart size is normal. The mediastinum is within normal limits. There is extensive airspace opacity throughout the left perihilar region. There is a moderate left pleural effusion. Airspace opacity and effusion have progressed since the prior exam. The right lung is clear. There is no pneumothorax. The bony thorax appears intact. IMPRESSION: Worsening airspace opacity and left pleural effusion. No pneumothorax. Reviewed, Interpreted and Dictated by Howard Olea MD Transcribed by Juan Cisneros Authenticated by Howard Olea MD on 07/27/2021 10:48:55 AM [facility]
[2021-07-27 09:33] LABS: Basophils % 0.6 % (0.1-2.0); Eosinophils # 0.6 K/mm3 (0.0-0.4); Eosinophils % 8.4 % (0.1-12.0); Hematocrit 31.8 % (37.0-47.0); Hemoglobin 9.6 g/dL (12.2-16.2); Lymphocytes # 0.6 K/mm3 (0.7-4.5); Lymphocytes % 8.3 % (10-50); Mean Corpuscular Hemoglobin 23.3 pg (27.0-31.2); Mean Corpuscular Volume 77.6 fl (81-99); Mean Platelet Volume 7.6 fl (7.4-10.4); Monocytes # 0.6 K/mm3 (0.1-1.0); Monocytes % 8.4 % (1.7-9.3); Neutrophils # 5.5 K/mm3 (1.8-7.8); Neutrophils % 74.2 % (37.0-80.0); Platelet Count 440 K/mm3 (142-424); White Blood Count 7.4 K/mm3 (4.8-10.8)
[2021-07-27 09:44] LABS: Chloride 101 mmol/L (98-107); Sodium 137 mmol/L (136-145)
[2021-07-27 09:47] LABS: Alanine Aminotransferase 11 U/L (12-78); Albumin Level 3.6 g/dl (3.5-5.0); Albumin/Globulin Ratio 1.3 (1.1-1.8); Alkaline Phosphatase 107 U/L (38-126); Aspartate Amino Transferase 18 U/L (14-36); Bilirubin,Total 0.4 mg/dl (0.2-1.3); Blood Urea Nitrogen 11 mg/dl (7-17); Carbon Dioxide 35 mmol/L (22.0-30.0); Creatinine Clearance Estimated 112 mL/min (50-200); Estimated Glomerular Filt Rate 86 ml/min (>60); GFR (African American) 104 ML/MIN (>60); Globulin 2.8 g/dL (1.3-3.2); Total Protein,Serum 6.4 g/dl (6.3-8.2)
[2021-07-27 09:48] LABS: Glucose 138 mg/dl (74-100)
== END ==
PROVIDERS: PCP Family Medicine; Visit Provider Internal Medicine Medical Oncology
DX: J90 Pleural effusion, not elsewhere classified (principal); R06.02 Shortness of breath; C64.9 Malignant neoplasm of unspecified kidney, except renal pelvis
CPT/HCPCS: 32555; 36415; 71046; 80053; 85025; 88112; 88305

== ENCOUNTER 2021-08-06 00:02 | Inpatient (IN) | payer MEDICARE, SELFPAY ==
[2021-08-06] VITALS (16 sets, daily range): BP systolic 119–157; BP diastolic 74–91; PULSE 81–129; RESP 16–26; TEMP 36.4–40.2; O2SAT 89–94; BMI 28.9; BMI 28.8
--- NOTE | 2021-08-06 00:13 | ECG_ITS ---
APPROVED REPORT Exam: Resting ECG HR:128 bpm ECG Measurements Heart Rate 128 AXES NV 139 P 31 QRSd 82 QRS 44 QT 334 T 56 QTc 410 Conclusion SINUS TACHYCARDIA NONSPECIFIC ST & T-WAVE ABNORMALITY ABNORMAL RHYTHM ECG UNCONFIRMED REPORT Electronically signed by : Carmine Everett MD 08/06/2021 09:01:34
--- NOTE | 2021-08-06 00:31 | CT_ITS ---
PROCEDURE INFORMATION: Exam: CT Head Without Contrast Exam date and time: 08/06/2021 12:58 AM Age: 56 years old Clinical indication: Other: Confusion fever SOB; Additional info: Confusion fever SOB TECHNIQUE: Imaging protocol: Computed tomography of the head without contrast. Radiation optimization: All CT scans at this facility use at least one of these dose optimization techniques: automated exposure control; mA and/or kV adjustment per patient size (includes targeted exams where dose is matched to clinical indication); or iterative reconstruction. COMPARISON: MR HEAD/BRAIN WO/W CON 11/24/2020 1:12 PM FINDINGS: Brain: Normal. No hemorrhage. Unremarkable white matter. No mass effect. Cerebral ventricles: No ventriculomegaly. Paranasal sinuses: Visualized sinuses are unremarkable. No fluid levels. Mastoid air cells: Visualized mastoid air cells are well aerated. Vasculature: Intracranial artery density is normal. Bones/joints: Unremarkable. No acute fracture. Soft tissues: Unremarkable. IMPRESSION: No acute intracranial abnormality.
--- NOTE | 2021-08-06 00:31 | XR_ITS ---
PROCEDURE INFORMATION: Exam: XR Chest Exam date and time: 08/06/2021 1:06 AM Age: 56 years old Clinical indication: Fever and shortness of breath; Additional info: Fever, SOA TECHNIQUE: Imaging protocol: XR of the chest. Views: 1 view. COMPARISON: CR XR CHEST 2V 07/27/2021 8:49 AM FINDINGS: Lungs: Extensive airspace opacity throughout the left lung. Diminished left pulmonary volume which appears worse when compared with prior examination of 07/27/2021. The right lung field is clear. Pleural spaces: There is blunting of the left lateral costophrenic angle, compatible with a large left pleural effusion. No pneumothorax. Heart/Mediastinum: Cardiomediastinal silhouette is unchanged in appearance. Relative position of the right heart border with respect to the spine is unchanged. Bones/joints: Degenerative changes of the thoracic spine are noted. IMPRESSION: 1. Extensive airspace opacity throughout the left lung. Diminished left pulmonary volume. Overall worse appearance since 07/27/2021. 2. Suspected large left pleural effusion. 3. The right lung field remains clear.
[2021-08-06 00:40] LABS: Microscopic, Urine URINE MICROSCOPIC (MICROSCOPIC)
[2021-08-06 00:40] LABS: Coronavirus 19, PCR Not Detected (NotDetected); Influenza A, PCR Not Detected (NotDetected); Influenza B, PCR Not Detected (NotDetected)
[2021-08-06 00:41] LABS: Appearance,Urine CLEAR (Clear); Bilirubin,Urine Negative (Negative); Blood, Urine Negative (Negative); Color,Urine YELLOW (Yellow); Glucose,Urine (UA) Negative (Negative); Ketones,Urine Negative (Negative); Leukocyte Esterase,Urine Negative (Negative); Protein,Urine Negative (Negative); Specific Gravity, Urine 1.015 (1.005-1.030)
[2021-08-06 00:43] LABS: Basophils # 0.1 K/mm3 (0-0.2); Basophils % 0.8 % (0.1-2.0); Eosinophils # 0.7 K/mm3 (0.0-0.4); Eosinophils % 5.3 % (0.1-12.0); Hematocrit 41.2 % (37.0-47.0); Hemoglobin 12.8 g/dL (12.2-16.2); Lymphocytes # 0.3 K/mm3 (0.7-4.5); Lymphocytes % 2.1 % (10-50); Mean Corpuscular Hemoglobin 23.1 pg (27.0-31.2); Mean Corpuscular Volume 74.5 fl (81-99); Mean Platelet Volume 7.9 fl (7.4-10.4); Monocytes # 0.4 K/mm3 (0.1-1.0); Monocytes % 2.6 % (1.7-9.3); Neutrophils # 12.4 K/mm3 (1.8-7.8); Neutrophils % 89.3 % (37.0-80.0); Platelet Count 444 K/mm3 (142-424); Red Blood Count 5.53 M/mm3 (4.20-5.40); Red Cell Distribution Width 17.1 % (11.5-17.5); White Blood Count 13.9 K/mm3 (4.8-10.8)
[2021-08-06 00:44] LABS: Nitrate,Urine Negative (Negative); Squamous Epithelial Cell,Urine Occasional #/hpf (0-5); WBC,Urine Occasional #/hpf (0-3)
[2021-08-06 00:46] LABS: Alanine Aminotransferase 20 U/L (12-78); Albumin Level 3.9 g/dl (3.5-5.0); Albumin/Globulin Ratio 1.4 (1.1-1.8); Alkaline Phosphatase 136 U/L (38-126); Anion Gap 11.5 mEq/L (5-15); Aspartate Amino Transferase 28 U/L (14-36); Bilirubin,Total 0.5 mg/dl (0.2-1.3); Blood Urea Nitrogen 19 mg/dl (7-17); Calcium 8.6 mg/dl (8.4-10.2); Carbon Dioxide 28 mmol/L (22.0-30.0); Chloride 100 mmol/L (98-107); Creatinine Clearance Estimated 109 mL/min (50-200); Estimated Glomerular Filt Rate 86 ml/min (>60); GFR (African American) 104 ML/MIN (>60); Globulin 2.8 g/dL (1.3-3.2); Glucose 161 mg/dl (74-100); Lactic Acid 1.1 mmol/L (0.7-2.1); MANUAL DIFFERENTIAL MANUAL DIFFERENTIAL (MANUAL DIFF); Potassium 4.5 mmoL/L (3.5-5.1); Sodium 135 mmol/L (136-145); Total Protein,Serum 6.7 g/dl (6.3-8.2)
[2021-08-06 00:52] LABS: C-Reactive Protein 40.2 mg/L (0-4)
[2021-08-06 00:53] LABS: Anisocytosis 2+; Eosinophils % 1 % (0-3); Hypochromasia 1+; Lymphocytes % 6 % (10-50); Microcytosis 2+; Neutrophils % 85 % (42-76); Platelet Estimate Slight Increase; Total Cells Counted 100
[2021-08-06 00:57] LABS: NT Pro Brain Natriuretic Pep. 155 pg/mL (0-125)
[2021-08-06 01:01] LABS: Erythrocyte Sedimentation Rate 15 mm/hr (0-30)
[2021-08-06 01:01] LABS: ABG Base Excess -0.5 mmol/L (-2.4-2.3); ABG HCO3 23.4 mmhg (22.0-26.0); ABG Oxygen Saturation 95 % (90-100); ABG PCO2 33.9 mmhg (35.0-45.0); ABG PH 7.46 mmol/L (7.35-7.45); ABG PO2 69.9 mmhg (80-100); ABG TCO2 24.4 mmhg (23-27)
[2021-08-06 01:02] LABS: Allen's Test Acceptable; Oxygen 28 %; Source Left Radial
[2021-08-06 01:04] LABS: Troponin I < 0.01 ng/ml (0.00-0.034)
[2021-08-06 01:06] LABS: Procalcitonin 1.21 ng/mL (0.0-2.0)
--- NOTE | 2021-08-06 01:56 | HMH.EDFEV ---
ED Disposition Clinical Impression: Febrile illness, acute, SIRS (systemic inflammatory response syndrome) CAP (community acquired pneumonia) Qualifiers: Laterality: left Lung location: unspecified part of lung Qualified Code(s): J18.9 - Pneumonia, unspecified organism Metastatic renal cell carcinoma Qualifiers: Laterality: unspecified laterality Qualified Code(s): C64.9 - Malignant neoplasm of unspecified kidney, except renal pelvis Disposition: Admitted As Inpatient Condition on Discharge: Serious Referrals: Guillaume Toro MD [Primary Care Provider] - - Critical Care Critical Care Time: No Attestation: On 08/06/21, the high probability of a clinically significant, sudden or life threatening deterioration of the following system(s) required my full and direct attention, intervention and personal management. The time I documented below is in addition to time spent performing reported procedures but includes the following listed in this critical care notation. Medical Decision Making - Medical Records Medical records reviewed: Yes: I reviewed the patient's medical records. - Edson Inquiry Pt receiving controlled substance: No Vital Signs: 08/06/21 00:23 08/06/21 00:30 08/06/21 01:12 Temperature 104.4 F H 99.6 F Temperature Source Rectal Pulse Rate 128 H 121 H Pulse Rate [Apical] 129 H Respiratory Rate 18 26 H Blood Pressure 157/85 H 140/80 Blood Pressure [Right Arm] 157/91 H Blood Pressure Mean 100 Blood Pressure Mean [Right Arm] 113 Blood Pressure Source [Right Arm] Automatic Cuff Blood Pressure Position [Right Arm] Sitting 02 Sat by Pulse Oximetry 89 L 92 L 93 L Oxygen Delivery Method Room Air Nasal Cannula Oxygen Flow Rate (LPM) 2 2 08/06/21 01:30 08/06/21 02:01 Temperature Temperature Source Pulse Rate 113 H 108 H Pulse Rate [Apical] Respiratory Rate 26 H 21 Blood Pressure 141/76 H 123/74 Blood Pressure [Right Arm] Blood Pressure Mean 97 95 Blood Pressure Mean [Right Arm] Blood Pressure Source [Right Arm] Blood Pressure Position [Right Arm] 02 Sat by Pulse Oximetry 93 L 94 L Oxygen Delivery Method Nasal Cannula Oxygen Flow Rate (LPM) 2 2 - Lab Data Lab results reviewed: Yes: I reviewed the patient's lab results. Lab Results 08/06/21 00:16: SARS-CoV-2 (PCR) Not detected, Influenza A Untype (PCR) Not detected, Influenza Type B (PCR) Not detected 08/06/21 00:17: WBC 13.9 H, RBC 5.53 H, Hgb 12.8, Hct 41.2, MCV 74.5 L, MCH 23.1 L, MCHC 31.0 L, RDW 17.1, Plt Count 444 H, MPV 7.9, Neut % (Auto) 89.3 H, Lymph % (Auto) 2.1 L, [place] % (Auto) 2.6, Eos % (Auto) 5.3, Baso % (Auto) 0.8, Neut # (Auto) 12.4 H, Lymph # (Auto) 0.3 L, Baker # (Auto) 0.4, Eos # (Auto) 0.7 H, Baso # (Auto) 0.1, Total Counted 100, Neutrophils % (Manual) 85 H, Band Neutrophils % 8.0, Lymphocytes % (Manual) 6 L, Eosinophils % (Manual) 1, Platelet Estimate Slight increase, Hypochromasia 1+, Anisocytosis 2+, Microcytosis 2+, ESR 15 08/06/21 00:17: Sodium 135 L, Potassium 4.5, Chloride 100, Carbon Dioxide 28, Anion Gap 11.5, BUN 19 H, Creatinine 0.70, Estimated Creat Clear 109, Estimated GFR 86, Est GFR ( Amer) 104, Glucose 161 H, Calcium 8.6, Total Bilirubin 0.5, AST 28, ALT 20, Alkaline Phosphatase 136 H, Troponin I < 0.01, C-Reactive Protein 40.2 H, Total Protein 6.7, Albumin 3.9, Globulin 2.8, Albumin/Globulin Ratio 1.4, Procalcitonin 1.21 08/06/21 00:17: Urine Color Yellow, Urine Appearance Clear, Urine pH 8.0, Ur Specific [place] 1.015, Urine Protein Negative, Urine Glucose (UA) Negative, Urine Ketones Negative, Urine Blood Negative, Urine Nitrate Negative, Urine Bilirubin Negative, Urine Urobilinogen 1.0, Ur Leukocyte Esterase Negative, Urine WBC Occasional, Ur Squamous Epith Cells Occasional 08/06/21 00:17: NT-Pro-B Natriuret Pep 155 H 08/06/21 00:17: Lactate 1.1 08/06/21 00:35: Specimen Source Left radial, O2 % 28, ABG pH 7.46 H, ABG pCO2 33.9 L, ABG pO2 69.9 L, ABG HCO3 23.4, ABG Total CO2 24
--- NOTE | 2021-08-06 02:42 | PC.NURSE ---
Consult to [facility] for vancomycin dosing. Spoke with Uziel. 1250mg initial dose to be entered by pharmacist.
--- NOTE | 2021-08-06 03:36 | PC.NURSE ---
PT ARRIVED TO FLOOR VIA STRETCHER FROM ED W/STAFF @ 2187
[2021-08-06 03:39] LABS: Troponin I < 0.01 ng/ml (0.00-0.034)
--- NOTE | 2021-08-06 05:17 | PC.NURSE ---
Patient admitted to floor. Patient on 2L nc sating 94%. Patient now AO X4. Temperature has resolved. Patient medicated per may for chronic pain. IV ABX administered per may. No complaints at this time.
--- NOTE | 2021-08-06 08:21 | HMH.PHACONS ---
- Pharmacy Consult Date: 08/06/21 Time: 08:21 Referring provider: DR. MORA Reason for Consult:: VANCOMYCIN DOSING Allergies and ADEs:: Allergies Allergy/AdvReac Type Severity Reaction Status Date / Time adalimumab [From Humira] Allergy Rash Verified 07/25/21 10:37 Penicillins Allergy Rash Verified 07/27/21 08:08 metoclopramide [From Reglan] AdvReac Anxiety Verified 07/25/21 10:37 Home Medications:: Home Medications Medication Instructions Recorded Confirmed Type estradioL [Estradiol] 2 mg PO DAILY 07/03/18 08/06/21 History hydrOXYzine HCL [Hydroxyzine HCl] 1 tab PO DAILYP PRN 12/05/18 08/06/21 History Levothyroxine Sodium 150 mcg PO DAILY 11/21/19 08/06/21 History [Levothyroxine 150mcg (0.15mg) Tab] Melatonin 10 mg PO HSP PRN 12/23/19 08/06/21 History Duloxetine HCl [Cymbalta 30mg 30 mg PO DAILY 09/16/20 08/06/21 History capsule] rimegepant 75 mg disintegrating 75 mg PO ONCE PRN 12/14/20 08/06/21 History tablet albuterol sulfate 90 mcg/actuation 2 inh INHALATION Q6H PRN 90 Days 05/30/21 08/06/21 Rx aerosol inhaler #8.5 g ipratropium 0.5 mg-albuterol 3 mg 3 ml INHALATION QID PRN 90 Days 05/30/21 08/06/21 Rx (2.5 mg base)/3 mL nebulization #270 ml soln Oxycodone HCl [Oxycodone (IR) 10mg 10 mg PO QID PRN 06/07/21 08/06/21 History Tab] fentaNYL [fentaNYL Patch 12mcg/hr] 12 mcg TD WEEKLY 06/07/21 08/06/21 History amitriptyline 25 mg tablet 50 mg PO HS 90 Days #180 tab NS 07/12/21 08/06/21 Rx Pregabalin [Lyrica 75mg Cap] 75 mg PO TID 07/27/21 08/06/21 History Hydrocodone/Acetaminophen 2 tab PO QID 08/06/21 08/06/21 History [Hydrocodone-Acetamin 5-325 mg] clindamycin HCL [Clindamycin HCl] 300 mg PO DAILY 08/06/21 08/06/21 History Height: 1.65 m Weight: 78.5 kg Laboratory Results:: Laboratory Results - last 24 hr 08/06/21 00:16: SARS-CoV-2 (PCR) Not detected, Influenza A Untype (PCR) Not detected, Influenza Type B (PCR) Not detected 08/06/21 00:17: WBC 13.9 H, RBC 5.53 H, Hgb 12.8, Hct 41.2, MCV 74.5 L, MCH 23.1 L, MCHC 31.0 L, RDW 17.1, Plt Count 444 H, MPV 7.9, Neut % (Auto) 89.3 H, Lymph % (Auto) 2.1 L, [place] % (Auto) 2.6, Eos % (Auto) 5.3, Baso % (Auto) 0.8, Neut # (Auto) 12.4 H, Lymph # (Auto) 0.3 L, [place] # (Auto) 0.4, Eos # (Auto) 0.7 H, Baso # (Auto) 0.1, Total Counted 100, Neutrophils % (Manual) 85 H, Band Neutrophils % 8.0, Lymphocytes % (Manual) 6 L, Eosinophils % (Manual) 1, Platelet Estimate Slight increase, Hypochromasia 1+, Anisocytosis 2+, Microcytosis 2+, ESR 15 08/06/21 00:17: Sodium 135 L, Potassium 4.5, Chloride 100, Carbon Dioxide 28, Anion Gap 11.5, BUN 19 H, Creatinine 0.70, Estimated Creat Clear 109, Estimated GFR 86, Est GFR ( Amer) 104, Glucose 161 H, Calcium 8.6, Total Bilirubin 0.5, AST 28, ALT 20, Alkaline Phosphatase 136 H, Troponin I < 0.01, C-Reactive Protein 40.2 H, Total Protein 6.7, Albumin 3.9, Globulin 2.8, Albumin/Globulin Ratio 1.4, Procalcitonin 1.21 08/06/21 00:17: Urine Color Yellow, Urine Appearance Clear, Urine pH 8.0, Ur Specific [place] 1.015, Urine Protein Negative, Urine Glucose (UA) Negative, Urine Ketones Negative, Urine Blood Negative, Urine Nitrate Negative, Urine Bilirubin Negative, Urine Urobilinogen 1.0, Ur Leukocyte Esterase Negative, Urine WBC Occasional, Ur Squamous Epith Cells Occasional 08/06/21 00:17: NT-Pro-B Natriuret Pep 155 H 08/06/21 00:17: Lactate 1.1 08/06/21 00:35: Specimen Source Left radial, O2 % 28, ABG pH 7.46 H, ABG pCO2 33.9 L, ABG pO2 69.9 L, ABG HCO3 23.4, ABG Total CO2 24.4, ABG O2 Saturation 95, ABG Base Excess -0.5, Brian Test Acceptable 08/06/21 03:12: Troponin I < 0.01 Medical History: Reports:: Aneurysm, Anxiety, Cancer, Congestive Heart Failure, Depression, Hyperlipidemia, Hypertension, Migraine, Renal Disease Denies:: Coronary Artery Disease, Diabetes Mellitus Type 1, Diabetes Mellitus Type 2, Internal Pacemaker, MRSA, Seizures Assessment and Plan - Assessment and plan all Dx Assessment and Plan for all problem
--- NOTE | 2021-08-06 11:35 | HMH.HP ---
*Admission Date: 08/06/21 *Chief complaint: fever, SOA *History of present illness: This 56-year-old white female presented in the emergency room with complaints of fever to 104 and shortness of breath. 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 Her diagnosis was made in April 2017. She has been followed at [facility] and by Dr. Abreu oncologist. She has had radiation therapy to the primary N2 lymph nodes in July 2017. She has had chemotherapy. She has been treated with Opdivo and Yervoy but had an intolerance to Yervoy. More recently she was treated with Opdivo alone, but this was discontinued about a month ago. Recently she was prescribed, on 08/01/2021, cabozantinib 60 mg daily. 2 weeks ago she was treated for left pleural effusion with a thoracentesis. She states that she had 1750 cc of fluid removed. She has a history of chronic pain and has had a pain pump placed. She has hypothyroidism. She has hypertension. She has a history of migraine headaches. [facility] History Medical History: Reports:: Aneurysm, Anxiety, Cancer, Congestive Heart Failure, Depression, Hyperlipidemia, Hypertension, Migraine, Renal Disease Denies:: Coronary Artery Disease, Diabetes Mellitus Type 1, Diabetes Mellitus Type 2, Internal Pacemaker, MRSA, Seizures *Have you ever received a pneumonia vaccine?: No *Have you received a flu vaccine this season?: No Other Medical History: Reports: Anemia, Arthritis, Blood Transfusion Reaction, Chemotherapy, Hormone Therapy, Hypothyroidism, Liver Disease, Radiation Therapy, Thyroid Disease Laterality Cases: Left: Breast Biopsy, Right: Carpal Tunnel Release Other Surgeries: Yes: No Previous Surgery, Cancer Surgery (renal biopsy;left auxillary lymph node bx), Colonoscopy, , Hysterectomy-Total, Other (renal biopsy, lt axillary node bx). No: Pacemaker Amputation: No Fractures: No - *Social History Smoking Status: Former smoker Tobacco Type: cigarettes # Packs/Day (cigarettes): 1 #Yrs smoked (if former smoker): 30 Alcohol Intake: never Alcohol Intake Frequency:: other Substance Use Type: denies use *Occupational Status:: unemployed Housing: house Household Members: spouse *Travel in the last 8 weeks: None - Psychiatric History Pschychiatric History:: Reports:: Anxiety, Depression Family Hx:: Cancer, Hypertension Review of Systems - Constitutional Reports body ache(s), Reports chills, Reports fatigue, Reports fever(s), Reports headache(s) - Eyes Denies change in vision - ENT Reports change in voice, Denies abnormal hearing - *Cardiovascular Reports shortness of breath with activity, Denies irregular heart rhythm - *Respiratory Reports chest congestion, Reports cough, Reports shortness of breath, Reports stridor, Denies coughing up blood - *Gastrointestinal Denies abdominal pain, Denies change in bowel habits - *Genitourinary Denies abnormal periods - *Musculoskeletal Denies abnormal walking - Integumentary/Breasts Denies bleeding lesions - *Neurologic Reports headache(s), Denies seizure-like activity - Psychiatric Reports anxiety, Denies memory loss - Hematologic/Lymphatic Denies easy bleeding Meds Home Medications Medication Instructions Recorded Confirmed Type estradioL [Estradiol] 2 mg PO DAILY 07/03/18 08/06/21 History hydrOXYzine HCL [Hydroxyzine HCl] 1 tab PO DAILYP PRN 12/05/18 08/06/21 History Levothyroxine Sodium 150 mcg PO DAILY 11/21/19 08/06/21 History [Levothyroxine 150mcg (0.15mg) Tab] Melatonin 10 mg PO HSP PRN 12/23/19 08/06/21 History Duloxetine HCl [Cymbalta 30mg 30 mg PO DAILY 09/16/20 08/06/21 History capsule] rimegepant 75 mg disintegrating 75 mg PO ONCE PRN 12/14/20 08/06/21 History tablet albuterol sulfate 90 mcg/actuation 2 inh INHALATION Q6H PRN 90 Days 05/30/21 08/06/21 Rx aerosol inhaler #8.5 g ipratropium 0.5 mg-albuterol 3 mg 3 ml INHALATION QID PRN 90 Days 05/30/21 08/06/21
--- NOTE | 2021-08-06 13:57 | HMH.PHAINT ---
MEDICATION RECONCILIATION COMPLETE USING LIST FROM MOST RECENT MD OFFICE VISIT AND EXTERNAL PHARMACY FILL HISTORY AND EDGAR REPORT.
--- NOTE | 2021-08-06 13:58 | P.CONPHA_ITS ---
[facility] Pharmacy VTE Monitoring - Patient Demographics Admission date: 08/06/21 Report Date: 08/06/21 Time: 13:58 Allergies/Adverse Reactions: Patient Allergies adalimumab [From Humira] Allergy (Verified 07/25/21 10:37) Rash Penicillins Allergy (Verified 07/27/21 08:08) Rash metoclopramide [From Reglan] Adverse Reaction (Verified 07/25/21 10:37) Anxiety Height: 1.65 m Weight: 78.5 kg Patient Problems: Current Active Problems Metastatic renal cell carcinoma (Chronic) Atypical chest pain (Acute) Febrile illness, acute (Acute) SIRS (systemic inflammatory response syndrome) (Acute) CAP (community acquired pneumonia) (Acute) Traumatic ecchymosis of left orbit (Acute) Pleural effusion on left (Acute) - VTE Risk Labs: VTE Related Lab Results Hgb 12.8 g/dL (12.2-16.2) 08/06/21 00:17 Hct 41.2 % (37.0-47.0) 08/06/21 00:17 Plt Count 444 K/mm3 (142-424) H 08/06/21 00:17 BUN 19 mg/dl (7-17) H 08/06/21 00:17 Creatinine 0.70 mg/dl (0.52-1.04) 08/06/21 00:17 Estimated Creat Clear 109 mL/min (50-200) 08/06/21 00:17 VTE Score: 5 VTE Risk Level: Low Risk Clinical Trial Participant: No - Prophylaxis VTE Prophylaxis Ordered?: Yes Types of VTE Prophylaxis: TEDS Knee High Location of Applied Device: Refused
--- NOTE | 2021-08-06 15:41 | PC.NURSE ---
pt has bene unable to produce sputum at this point of shift
--- NOTE | 2021-08-06 17:27 | PC.NURSE ---
pt has been alert and appropriate for me all shift. She complains of left sided back pain. She ambulated well with a cane to bathroom multiple times. c/o a dry cough and has not produced any sputum. Wears o2 on occasion when she is feeling SOA. Has been able to maintain ra saturation around 90-93%
[2021-08-07] VITALS (9 sets, daily range): BP systolic 145–160; BP diastolic 74–86; PULSE 64–98; RESP 17–20; TEMP 36.6–37.1; O2SAT 88–97; BMI 29.6
--- NOTE | 2021-08-07 03:48 | PC.NURSE ---
Patient A&O x4. She complains of left sided back pain and rt sided leg pain. Complaints of dry cough. Sputum sample obtained and sent to lab. Wears 2L prn when she is feeling SOA. Has been able to maintain room air saturation around 90-93%. Patient medicated for pain per MAY.
[2021-08-07 09:48] LABS: Basophils # 0.1 K/mm3 (0-0.2); Basophils % 0.8 % (0.1-2.0); Eosinophils # 0.8 K/mm3 (0.0-0.4); Eosinophils % 9.6 % (0.1-12.0); Hematocrit 31.9 % (37.0-47.0); Hemoglobin 10.3 g/dL (12.2-16.2); Lymphocytes # 0.9 K/mm3 (0.7-4.5); Lymphocytes % 11.3 % (10-50); Mean Corpuscular HGB Conc 32.4 g/dL (31.8-35.4); Mean Corpuscular Hemoglobin 23.8 pg (27.0-31.2); Mean Corpuscular Volume 73.5 fl (81-99); Mean Platelet Volume 7.8 fl (7.4-10.4); Monocytes # 0.4 K/mm3 (0.1-1.0); Monocytes % 4.7 % (1.7-9.3); Neutrophils # 6.1 K/mm3 (1.8-7.8); Neutrophils % 73.7 % (37.0-80.0); Platelet Count 264 K/mm3 (142-424); Red Blood Count 4.34 M/mm3 (4.20-5.40); Red Cell Distribution Width 17.3 % (11.5-17.5); White Blood Count 8.3 K/mm3 (4.8-10.8)
[2021-08-07 10:11] LABS: Anion Gap 10.1 mEq/L (5-15); Blood Urea Nitrogen 14 mg/dl (7-17); Calcium 8.2 mg/dl (8.4-10.2); Carbon Dioxide 21 mmol/L (22.0-30.0); Chloride 106 mmol/L (98-107); Creatinine Clearance Estimated 130 mL/min (50-200); Estimated Glomerular Filt Rate 103 ml/min (>60); GFR (African American) 124 ML/MIN (>60); Glucose 146 mg/dl (74-100); Potassium 4.1 mmoL/L (3.5-5.1); Sodium 133 mmol/L (136-145)
--- NOTE | 2021-08-07 11:08 | HMH.ACPN2 ---
Internal Medicine - PN: Subj *Date: 08/07/21 *Time: 11:08 Interval history: Not much change. C/o cough. Sats OK on room air. Exam Vital signs and Labs for Last 24 Hours: Temp Pulse Resp BP Pulse Ox 98.0 F 98 H 20 154/86 H 94 L 08/07/21 08:00 08/07/21 08:00 08/07/21 08:00 08/07/21 08:00 08/07/21 08:00 Laboratory Results - last 24 hr 08/07/21 09:30: WBC 8.3 D, RBC 4.34, Hgb 10.3 L, Hct 31.9 L, MCV 73.5 L, MCH 23.8 L, MCHC 32.4, RDW 17.3, Plt Count 264 D, MPV 7.8, Neut % (Auto) 73.7, Lymph % (Auto) 11.3, [place] % (Auto) 4.7, Eos % (Auto) 9.6, Baso % (Auto) 0.8, Neut # (Auto) 6.1, Lymph # (Auto) 0.9, [place] # (Auto) 0.4, Eos # (Auto) 0.8 H, Baso # (Auto) 0.1 08/07/21 09:30: Sodium 133 L, Potassium 4.1, Chloride 106, Carbon Dioxide 21 L, Anion Gap 10.1, BUN 14 D, Creatinine 0.60, Estimated Creat Clear 130, Estimated GFR 103, Est GFR ( Amer) 124, Glucose 146 H, Calcium 8.2 L I & O for Last 24 hours: Intake & Output 08/04/21 08/05/21 08/06/21 08/07/21 11:59 11:59 11:59 11:59 Intake Total 300 / 300 420 / 420 Balance 300 / 300 420 / 420 Weight 173 lb 1 oz 178 lb Microbiology Reports for the Last 24 Hours: Microbiology 08/06/21 23:04 Sputum - Expectorated Sputum Gram Stain - Final 08/06/21 23:04 Sputum - Expectorated Sputum Sputum Culture - Preliminary - Constitutional no acute distress - *Routine HEENT Exam Head: Present: normocephalic Eye: Present: EOMI, PERRL ENT: Present: mucous membranes moist - *Routine Neck Exam Present: supple. Absent: lymphadenopathy - *Routine Respiratory Exam Present: decreased breath sounds, rhonchi - *Routine Cardiovascular Exam Present: RRR - *Routine Abdominal Exam Present: soft, normoactive bowel sounds. Absent: tenderness - *Routine Extremities Exam Absent: cyanosis, clubbing, edema - *Routine Skin Exam Present: warm. Absent: rash - *Routine Neurological Exam Present: alert, oriented X3 Assessment and Plan (1) Traumatic ecchymosis of left orbit Status: Acute Category: Medical Code(s): S05.12XA - Contusion of eyeball and orbital tissues, left eye, initial encounter (2) CAP (community acquired pneumonia) Status: Acute Qualifiers: Laterality: left Lung location: unspecified part of lung Qualified Code(s): J18.9 - Pneumonia, unspecified organism Category: Medical Code(s): J18.9 - Pneumonia, unspecified organism (3) Febrile illness, acute Status: Acute Category: Medical Code(s): R50.9 - Fever, unspecified (4) SIRS (systemic inflammatory response syndrome) Status: Acute Category: Medical Code(s): R65.10 - Systemic inflammatory response syndrome (SIRS) of non-infectious origin without acute organ dysfunction (5) Metastatic renal cell carcinoma Status: Chronic Qualifiers: Laterality: unspecified laterality Qualified Code(s): C64.9 - Malignant neoplasm of unspecified kidney, except renal pelvis Category: Medical Code(s): C64.9 - Malignant neoplasm of unspecified kidney, except renal pelvis (6) Atypical chest pain Status: Acute Category: Medical Code(s): R07.89 - Other chest pain (7) Pleural effusion on left Status: Acute Category: Medical Code(s): J90 - Pleural effusion, not elsewhere classified - Assessment and plan all Dx Assessment and Plan for all problems:: Pulmonary consult anticipated tomorrow. Likely thoracentesis.
[2021-08-08] VITALS (10 sets, daily range): BP systolic 129–163; BP diastolic 66–94; PULSE 73–93; RESP 16–20; TEMP 36.6–37.2; O2SAT 88–100; BMI 29.7
--- NOTE | 2021-08-08 03:00 | PC.NURSE ---
Patient has been on room air while awake with oxygen saturation between 92-94%. Patient wears 2LNC at while sleeping and maintains oxygen saturation >95%. Patient lung sounds are diminished throughout the left side. Scattered wheezing can be auscultated bilaterally. Patient continues to have an intermitting cough.
[2021-08-08 04:38] LABS: Basophils # 0.1 K/mm3 (0-0.2); Eosinophils # 1.1 K/mm3 (0.0-0.4); Eosinophils % 11.2 % (0.1-12.0); Hematocrit 34.1 % (37.0-47.0); Hemoglobin 10.4 g/dL (12.2-16.2); Lymphocytes # 1.1 K/mm3 (0.7-4.5); Lymphocytes % 11.3 % (10-50); Mean Corpuscular HGB Conc 30.4 g/dL (31.8-35.4); Mean Corpuscular Hemoglobin 22.7 pg (27.0-31.2); Mean Corpuscular Volume 74.6 fl (81-99); Mean Platelet Volume 8.1 fl (7.4-10.4); Monocytes # 0.5 K/mm3 (0.1-1.0); Monocytes % 5.1 % (1.7-9.3); Neutrophils # 6.8 K/mm3 (1.8-7.8); Neutrophils % 71.4 % (37.0-80.0); Platelet Count 271 K/mm3 (142-424); Red Blood Count 4.57 M/mm3 (4.20-5.40); Red Cell Distribution Width 17.2 % (11.5-17.5); White Blood Count 9.5 K/mm3 (4.8-10.8)
[2021-08-08 04:39] LABS: MANUAL DIFFERENTIAL MANUAL DIFFERENTIAL (MANUAL DIFF)
[2021-08-08 05:00] LABS: Eosinophils % 7 % (0-3); Lymphocytes % 7 % (10-50); Monocytes % 1 % (2-9); Neutrophils % 79 % (42-76); Total Cells Counted 100
[2021-08-08 05:01] LABS: Anisocytosis 1+; Hypochromasia 3+; Microcytosis 3+; Platelet Estimate Normal
[2021-08-08 05:10] LABS: Vancomycin,Trough 9.9 ug/mL (5.0-10.0)
[2021-08-08 05:18] LABS: Chloride 103 mmol/L (98-107); Potassium 4.5 mmoL/L (3.5-5.1); Sodium 136 mmol/L (136-145)
[2021-08-08 05:21] LABS: Anion Gap 14.5 mEq/L (5-15); Blood Urea Nitrogen 10 mg/dl (7-17); Carbon Dioxide 23 mmol/L (22.0-30.0); Creatinine Clearance Estimated 130 mL/min (50-200); Estimated Glomerular Filt Rate 103 ml/min (>60); GFR (African American) 124 ML/MIN (>60)
[2021-08-08 05:22] LABS: Calcium 8.6 mg/dl (8.4-10.2); Glucose 114 mg/dl (74-100)
--- NOTE | 2021-08-08 05:56 | PC.NURSE ---
Spoke with Uziel from [facility] regarding vancomycin trough at this time. OK to give ordered dose.
--- NOTE | 2021-08-08 09:10 | HMH.ACPN2 ---
Internal Medicine - PN: Subj *Date: 08/08/21 *Time: 09:10 Interval history: Patient states she is definitely better since admission. She continues with shortness of breath. Son at bedside And says she has a frequent cough. It is mostly nonproductive. She no longer has any anterior chest discomfort. She did sleep some during the night. She usually does not eat but to meals per day. This is unchanged. Pulmonology is to see her this morning. Hemoglobin is 10.4 today with a hematocrit of 34.1. White blood cell count is 9500. Blood chemistries show normal electrolytes with a BUN of 10 and creatinine 0.6. Exam Vital signs and Labs for Last 24 Hours: Temp Pulse Resp BP Pulse Ox 98.4 F 93 H 20 158/92 H 97 08/08/21 08:00 08/08/21 08:00 08/08/21 08:00 08/08/21 08:00 08/08/21 08:00 Laboratory Results - last 24 hr 08/07/21 09:30: WBC 8.3 D, RBC 4.34, Hgb 10.3 L, Hct 31.9 L, MCV 73.5 L, MCH 23.8 L, MCHC 32.4, RDW 17.3, Plt Count 264 D, MPV 7.8, Neut % (Auto) 73.7, Lymph % (Auto) 11.3, [place] % (Auto) 4.7, Eos % (Auto) 9.6, Baso % (Auto) 0.8, Neut # (Auto) 6.1, Lymph # (Auto) 0.9, [place] # (Auto) 0.4, Eos # (Auto) 0.8 H, Baso # (Auto) 0.1 08/07/21 09:30: Sodium 133 L, Potassium 4.1, Chloride 106, Carbon Dioxide 21 L, Anion Gap 10.1, BUN 14 D, Creatinine 0.60, Estimated Creat Clear 130, Estimated GFR 103, Est GFR ( Amer) 124, Glucose 146 H, Calcium 8.2 L 08/07/21 10:47: TSH 11.70 H 08/08/21 04:30: Vancomycin Trough 9.9 08/08/21 04:30: WBC 9.5, RBC 4.57, Hgb 10.4 L, Hct 34.1 L, MCV 74.6 L, MCH 22.7 L, MCHC 30.4 L, RDW 17.2, Plt Count 271, MPV 8.1, Neut % (Auto) 71.4, Lymph % (Auto) 11.3, [place] % (Auto) 5.1, Eos % (Auto) 11.2, Baso % (Auto) 1.0, Neut # (Auto) 6.8, Lymph # (Auto) 1.1, [place] # (Auto) 0.5, Eos # (Auto) 1.1 H, Baso # (Auto) 0.1, Total Counted 100, Neutrophils % (Manual) 79 H, Band Neutrophils % 6.0, Lymphocytes % (Manual) 7 L, Monocytes % (Manual) 1 L, Eosinophils % (Manual) 7 H, Platelet Estimate Normal, Hypochromasia 3+, Anisocytosis 1+, Microcytosis 3+ 08/08/21 04:30: Sodium 136, Potassium 4.5, Chloride 103, Carbon Dioxide 23, Anion Gap 14.5, BUN 10 D, Creatinine 0.60, Estimated Creat Clear 130, Estimated GFR 103, Est GFR ( Amer) 124, Glucose 114 H D, Calcium 8.6 I & O for Last 24 hours: Intake & Output 08/05/21 08/06/21 08/07/21 08/08/21 11:59 11:59 11:59 11:59 Intake Total 300 / 300 420 / 420 4540 / 4540 Balance 300 / 300 420 / 420 4540 / 4540 Weight 173 lb 1 oz 178 lb 178 lb 9.191 oz Microbiology Reports for the Last 24 Hours: Microbiology 08/06/21 00:17 Blood Blood Culture - Preliminary NO GROWTH AFTER 48 HOURS 08/06/21 00:17 Blood Blood Culture - Preliminary NO GROWTH AFTER 48 HOURS 08/06/21 23:04 Sputum - Expectorated Sputum Gram Stain - Final 08/06/21 23:04 Sputum - Expectorated Sputum Sputum Culture - Preliminary - Constitutional no acute distress Comments: Short of breath with conversation. - *Routine Respiratory Exam Present: accessory muscle use, wheezes (Bilaterally throughout anteriorly and posteriorly) - *Routine Cardiovascular Exam Present: RRR - *Routine Abdominal Exam Present: soft, normoactive bowel sounds. Absent: tenderness, distended - *Routine Extremities Exam Present: full ROM, pulses intact. Absent: edema, calf tenderness - *Routine Neurological Exam Present: alert, oriented X3 Assessment and Plan (1) Traumatic ecchymosis of left orbit Status: Acute Category: Medical Code(s): S05.12XA - Contusion of eyeball and orbital tissues, left eye, initial encounter (2) CAP (community acquired pneumonia) Status: Acute Qualifiers: Laterality: left Lung location: unspecified part of lung Qualified Code(s): J18.9 - Pneumonia, unspecified organism Category: Medical Code(s): J18.9 - Pneumonia, unspecified organism (3) Febrile illness, acute Status: Acute
--- NOTE | 2021-08-08 09:22 | HMH.PULMCON ---
*Admission Date: 08/06/21 *Reason for consult:: Pneumonia, left pleural effusion *History of present illness: Ms. Carter is a 56-year-old female history of stage IV renal cell cancer, greater than [id number] smoking history presented to hospital subjective fevers not noted to have left-sided pleural effusion pulmonary was called for further management. [facility] History Medical History: Reports:: Aneurysm, Anxiety, Cancer, Congestive Heart Failure, Depression, Hyperlipidemia, Hypertension, Migraine, Renal Disease Denies:: Coronary Artery Disease, Diabetes Mellitus Type 1, Diabetes Mellitus Type 2, Internal Pacemaker, MRSA, Seizures *Have you ever received a pneumonia vaccine?: No *Have you received a flu vaccine this season?: No Other Medical History: Reports: Anemia, Arthritis, Blood Transfusion Reaction, Chemotherapy, Hormone Therapy, Hypothyroidism, Liver Disease, Radiation Therapy, Thyroid Disease Laterality Cases: Left: Breast Biopsy, Right: Carpal Tunnel Release Other Surgeries: Yes: No Previous Surgery, Cancer Surgery (renal biopsy;left auxillary lymph node bx), Colonoscopy, , Hysterectomy-Total, Other (renal biopsy, lt axillary node bx). No: Pacemaker Amputation: No Fractures: No - *Social History Smoking Status: Former smoker Tobacco Type: cigarettes # Packs/Day (cigarettes): 1 #Yrs smoked (if former smoker): 30 Alcohol Intake: never Alcohol Intake Frequency:: other Substance Use Type: denies use *Occupational Status:: unemployed Housing: house Household Members: spouse *Travel in the last 8 weeks: None - Psychiatric History Pschychiatric History:: Reports:: Anxiety, Depression Family Hx:: Cancer, Hypertension ROS - Cons Reports fatigue, Reports fever(s) - Eyes Reports blurry vision - ENT Denies nosebleed - Card Reports shortness of breath with activity - Resp Respiratory: Reports change in phlegm color, Reports chest congestion, Reports cough, Reports dyspnea, Reports dyspnea on exertion, Reports cough with sputum production - GI Gastrointestingal: Denies: abdominal pain - [place] Musculoskeletal: Reports muscle weakness - Psych Denies thoughts of hurting/killing others, Denies thoughts of hurting/killing yourself Meds Home Medications Medication Instructions Recorded Confirmed Type estradioL [Estradiol] 2 mg PO DAILY 07/03/18 08/06/21 History hydrOXYzine HCL [Hydroxyzine HCl] 1 tab PO DAILYP PRN 12/05/18 08/06/21 History Levothyroxine Sodium 150 mcg PO DAILYDM 11/21/19 08/06/21 History [Levothyroxine 150mcg (0.15mg) Tab] Melatonin 10 mg PO HSP PRN 12/23/19 08/06/21 History Duloxetine HCl [Cymbalta 30mg 30 mg PO DAILY 09/16/20 08/06/21 History capsule] rimegepant 75 mg disintegrating 75 mg PO ONCE PRN 12/14/20 08/06/21 History tablet albuterol sulfate 90 mcg/actuation 2 inh INHALATION Q6H PRN 90 Days 05/30/21 08/06/21 Rx aerosol inhaler #8.5 g ipratropium 0.5 mg-albuterol 3 mg 3 ml INHALATION QID PRN 90 Days 05/30/21 08/06/21 Rx (2.5 mg base)/3 mL nebulization #270 ml soln Oxycodone HCl [Oxycodone (IR) 10mg 10 mg PO QIDP PRN 06/07/21 08/06/21 History Tab] fentaNYL [fentaNYL Patch 12mcg/hr] 12 mcg TD Q72H 06/07/21 08/06/21 History amitriptyline 25 mg tablet 50 mg PO HS 90 Days #180 tab NS 07/12/21 08/06/21 Rx Pregabalin [Lyrica 75mg Cap] 75 mg PO TID 07/27/21 08/06/21 History Cabozantinib S-Malate [Cabometyx] 60 mg PO DAILY 08/06/21 08/06/21 History lisinopriL [Lisinopril] 10 mg PO DAILY 08/06/21 08/06/21 History Allergies Allergy/AdvReac Type Severity Reaction Status Date / Time adalimumab [From Humira] Allergy Rash Verified 07/25/21 10:37 Penicillins Allergy Rash Verified 07/27/21 08:08 metoclopramide [From Reglan] AdvReac Anxiety Verified 07/25/21 10:37 Exam - Constitutional Constitutional:: Present: no acute distress, comfortable - HENMT Exam HENMT: Present: normocephalic, atraumatic - Eye Exam Eyes:: Present: normal appearance both eyes and rel
--- NOTE | 2021-08-08 09:28 | CT_ITS ---
FINAL REPORT TECHNIQUE: Axial images were obtained from the lung apex to the mid abdomen by computed tomography. Coronal reformatted images were obtained. This study was performed with techniques to keep radiation doses as low as reasonably achievable, (ALARA). Individualized dose reduction techniques using automated exposure control or adjustment of mA and/or kV according to the patient''s size were employed. CLINICAL HISTORY: Pneumonia..cancer COMPARISON: July 22, 2021 FINDINGS: Lack of intravenous contrast decreases exam sensitivity. There is adenopathy in the inferior internal jugular region bilaterally. A right IJ lymph node measures 18 mm and previously measured 16 mm. A left IJ lymph node measures 30 mm in previously measured 28 mm. There is bulky left axillary and sub pectoral adenopathy. A lateral left axillary lymph node measures 36 mm improve she measures 37 mm. A medial sub pectoral lymph node measures 37 mm info she measures 37 mm. There is widespread mediastinal adenopathy. The larger left pre-vascular lymph node measures 28 mm in transverse dimensions and previously measured 32 mm. A left hilar mass/lymph node measures 37 mm and previously measured 39 mm. A small pericardial effusion is present. There is consolidation/soft tissue in the left upper lobe. There is left lower lobe atelectasis. There is slight improvement in a moderate left pleural effusion. There is mild atelectasis or scarring in the right lung. There is left breast skin thickening and edema. Note is made of a 38 mm partially calcified left renal mass the previously measured 38 mm. IMPRESSION: No significant change in widespread masses/adenopathy consistent with neoplastic involvement. Reviewed, Interpreted and Dictated by Seven Temple III, MD Transcribed by Juan Cisneros Authenticated by Seven Temple III, MD on 08/08/2021 11:20:37 AM [facility]
[2021-08-08 10:08] LABS: Vancomycin,Peak 30.5 ug/ml (11-39)
--- NOTE | 2021-08-08 11:23 | HMH.PHACONS ---
- Pharmacy Consult Date: 08/08/21 Time: 11:24 Referring provider: DR. TONY Reason for Consult:: VANCOMYCIN PEAK/TROUGH LEVELS AND DOSE CHANGE Allergies and ADEs:: Allergies Allergy/AdvReac Type Severity Reaction Status Date / Time adalimumab [From Humira] Allergy Rash Verified 07/25/21 10:37 Penicillins Allergy Rash Verified 07/27/21 08:08 metoclopramide [From Reglan] AdvReac Anxiety Verified 07/25/21 10:37 Home Medications:: Home Medications Medication Instructions Recorded Confirmed Type estradioL [Estradiol] 2 mg PO DAILY 07/03/18 08/06/21 History hydrOXYzine HCL [Hydroxyzine HCl] 1 tab PO DAILYP PRN 12/05/18 08/06/21 History Levothyroxine Sodium 150 mcg PO DAILYDM 11/21/19 08/06/21 History [Levothyroxine 150mcg (0.15mg) Tab] Melatonin 10 mg PO HSP PRN 12/23/19 08/06/21 History Duloxetine HCl [Cymbalta 30mg 30 mg PO DAILY 09/16/20 08/06/21 History capsule] rimegepant 75 mg disintegrating 75 mg PO ONCE PRN 12/14/20 08/06/21 History tablet albuterol sulfate 90 mcg/actuation 2 inh INHALATION Q6H PRN 90 Days 05/30/21 08/06/21 Rx aerosol inhaler #8.5 g ipratropium 0.5 mg-albuterol 3 mg 3 ml INHALATION QID PRN 90 Days 05/30/21 08/06/21 Rx (2.5 mg base)/3 mL nebulization #270 ml soln Oxycodone HCl [Oxycodone (IR) 10mg 10 mg PO QIDP PRN 06/07/21 08/06/21 History Tab] fentaNYL [fentaNYL Patch 12mcg/hr] 12 mcg TD Q72H 06/07/21 08/06/21 History amitriptyline 25 mg tablet 50 mg PO HS 90 Days #180 tab NS 07/12/21 08/06/21 Rx Pregabalin [Lyrica 75mg Cap] 75 mg PO TID 07/27/21 08/06/21 History Cabozantinib S-Malate [Cabometyx] 60 mg PO DAILY 08/06/21 08/06/21 History lisinopriL [Lisinopril] 10 mg PO DAILY 08/06/21 08/06/21 History Height: 1.65 m Weight: 81 kg Laboratory Results:: Laboratory Results - last 24 hr 08/07/21 10:47: TSH 11.70 H 08/08/21 04:30: Vancomycin Trough 9.9 08/08/21 04:30: WBC 9.5, RBC 4.57, Hgb 10.4 L, Hct 34.1 L, MCV 74.6 L, MCH 22.7 L, MCHC 30.4 L, RDW 17.2, Plt Count 271, MPV 8.1, Neut % (Auto) 71.4, Lymph % (Auto) 11.3, Elmore % (Auto) 5.1, Eos % (Auto) 11.2, Baso % (Auto) 1.0, Neut # (Auto) 6.8, Lymph # (Auto) 1.1, Elmore # (Auto) 0.5, Eos # (Auto) 1.1 H, Baso # (Auto) 0.1, Total Counted 100, Neutrophils % (Manual) 79 H, Band Neutrophils % 6.0, Lymphocytes % (Manual) 7 L, Monocytes % (Manual) 1 L, Eosinophils % (Manual) 7 H, Platelet Estimate Normal, Hypochromasia 3+, Anisocytosis 1+, Microcytosis 3+ 08/08/21 04:30: Sodium 136, Potassium 4.5, Chloride 103, Carbon Dioxide 23, Anion Gap 14.5, BUN 10 D, Creatinine 0.60, Estimated Creat Clear 130, Estimated GFR 103, Est GFR ( Amer) 124, Glucose 114 H D, Calcium 8.6 08/08/21 09:15: Vancomycin Peak 30.5 Medical History: Reports:: Aneurysm, Anxiety, Cancer, Congestive Heart Failure, Depression, Hyperlipidemia, Hypertension, Migraine, Renal Disease Denies:: Coronary Artery Disease, Diabetes Mellitus Type 1, Diabetes Mellitus Type 2, Internal Pacemaker, MRSA, Seizures Assessment and Plan (1) Traumatic ecchymosis of left orbit Status: Acute Category: Medical Code(s): S05.12XA - Contusion of eyeball and orbital tissues, left eye, initial encounter (2) CAP (community acquired pneumonia) Status: Acute Qualifiers: Laterality: left Lung location: unspecified part of lung Qualified Code(s): J18.9 - Pneumonia, unspecified organism Category: Medical Code(s): J18.9 - Pneumonia, unspecified organism (3) Febrile illness, acute Status: Acute Category: Medical Code(s): R50.9 - Fever, unspecified (4) SIRS (systemic inflammatory response syndrome) Status: Acute Category: Medical Code(s): R65.10 - Systemic inflammatory response syndrome (SIRS) of non-infectious origin without acute organ dysfunction (5) Metastatic renal cell carcinoma Status: Chronic Qualifiers: Laterality: unspecified laterality Qualified Code(s): C64.9 - Malignant neoplasm of unspecified kidney, except renal pelvis Categor
--- NOTE | 2021-08-08 16:48 | PC.NURSE ---
Patient has rested well this shift, A&Ox4. Patient has ambulated to and from the restroom with 1 assist several times. Patient has maintained O2 sat 90% and higher, 2L NC used when pt feels SOA. No new complaints. Will continue to monitor.
[2021-08-09] VITALS (7 sets, daily range): BP systolic 149–178; BP diastolic 76–94; PULSE 87–99; RESP 16–20; TEMP 36.4–36.8; O2SAT 92–98; BMI 30.1
--- NOTE | 2021-08-09 08:03 | HMH.ACPN ---
Internal Medicine - PN: Subj *Date: 08/09/21 *Time: 08:03 Exam Vital signs and Labs for Last 24 Hours: Temp Pulse Resp BP Pulse Ox 97.8 F 92 H 20 149/93 H 92 L 08/09/21 03:42 08/09/21 06:24 08/09/21 03:42 08/09/21 03:42 08/09/21 06:24 Laboratory Results - last 24 hr 08/08/21 09:15: Vancomycin Peak 30.5 I & O for Last 24 hours: Intake & Output 08/06/21 08/07/21 08/08/21 08/09/21 23:59 23:59 23:59 23:59 Intake Total 600 / 600 840 / 840 4120 / 4120 Balance 600 / 600 840 / 840 4120 / 4120 Weight 78.5 kg 80.739 kg 81 kg 82.01 kg Microbiology Reports for the Last 24 Hours: Microbiology 08/06/21 23:04 Sputum - Expectorated Sputum Gram Stain - Final 08/06/21 23:04 Sputum - Expectorated Sputum Sputum Culture - Final Normal Respiratory Shobha Assessment and Plan (1) Traumatic ecchymosis of left orbit Status: Acute Category: Medical Code(s): S05.12XA - Contusion of eyeball and orbital tissues, left eye, initial encounter (2) CAP (community acquired pneumonia) Status: Acute Qualifiers: Laterality: left Lung location: unspecified part of lung Qualified Code(s): J18.9 - Pneumonia, unspecified organism Category: Medical Code(s): J18.9 - Pneumonia, unspecified organism (3) Febrile illness, acute Status: Acute Category: Medical Code(s): R50.9 - Fever, unspecified (4) SIRS (systemic inflammatory response syndrome) Status: Acute Category: Medical Code(s): R65.10 - Systemic inflammatory response syndrome (SIRS) of non-infectious origin without acute organ dysfunction (5) Metastatic renal cell carcinoma Status: Chronic Qualifiers: Laterality: unspecified laterality Qualified Code(s): C64.9 - Malignant neoplasm of unspecified kidney, except renal pelvis Category: Medical Code(s): C64.9 - Malignant neoplasm of unspecified kidney, except renal pelvis (6) Atypical chest pain Status: Acute Category: Medical Code(s): R07.89 - Other chest pain (7) Pleural effusion on left Status: Acute Category: Medical Code(s): J90 - Pleural effusion, not elsewhere classified The patient's infection will respond to the chosen ABx?: Yes (EMPIRIC THERAPY) Is the patient receiving the right drug, dose, and route?: Yes Could a more targeted ABx be ordered?: No (CULTURES SHOW NRF)
--- NOTE | 2021-08-09 08:17 | CA_ITS ---
APPROVED REPORT EXAM: Comprehensive 2D, Doppler, and color-flow Echocardiogram Self Contained Behavior Unit Teacher: Iman Orozco CRT Ht: 5 ft 4 in Wt: 180lbs BSA: 1.87 BP: 138/89 mmHg Indications: pleural effusion, renal Ca stage 4, lung ca,DNR Congestive Heart Failure, Shortness of Breath, Hyperlipidemia, Hypertension/HDD 2D Dimensions LVOT 2.06 cm (M/F) 1.5-2.5 M-Mode Dimensions RVDd 1.59 cm (0.9-2.6) LA Diam 3.46 cm (1.9-4.0) LVDd 5.44 cm (3.5-5.7) Ao Diam 3.49 cm (2.0-3.7) LVDs 3.47 cm (3.5-5.7) IVSd 0.91 cm (0.6-1.1) PWd 0.72 cm (0.6-1.1) EF (Teich) 72.00% FS 41.40% EDV (Teich) 126.10 mL ESV (Teich) 35.30 mL LV Diastology E Decel Time 150.00 (160-240 msec) E/A Ratio 0.72 MED E' 4.80 (< 7 cm/sec) MED A' 10.90 cm/s E'/MED E' Ratio 13.54 (>14) LAT E' 7.70 (<10 cm/sec) LAT A' 11.80 cm/s E/LAT E' Ratio 8.44 (>14) Aortic Valve AO Peak GR. 8.60 mmHg Mitral Valve MV E Max Marco Antonio. 65.00 (40-130 cm/s) MV A Velocity 90.00 (40-130 cm/s) E/A Ratio 0.72 MV Decel. Time 150.00 (160-240 ms) MV PHT 44.00 ms Pulmonary Valve PV Peak Velocity 103.00 (50-150 cm/s) Tricuspid Valve TR P. Velocity 265.00 cm/s RAP Estimate 10.00 mmHg RVSP 38.10 mmHg Left Ventricle Left atrium is mildly enlarged, left ventricle is normal size, mild concentric left ventricular hypertrophy, estimated ejection fraction 55% with no regional wall motion abnormality. Grade 1 diastolic dysfunction seen without tissue Doppler evidence of raise left atrial pressure. Right Ventricle Right atrium and right ventricle are mildly enlarged with normal contractility. Aortic Valve Aortic valve is minimally thickened and fibrosed, there is no aortic stenosis or aortic insufficiency. Mitral Valve Mitral valve grossly normal, there is trace mitral regurgitation. Tricuspid Valve Tricuspid valve grossly normal, there is trace tricuspid regurgitation, tricuspid regurgitation jet velocity is inadequate for calculation of the right ventricular systolic pressure. Pulmonic Valve Pulmonic valve is poorly visualized. Great Vessels Aortic root is normal size. Inferior vena cava is poorly visualized. Pericardium Trivial pericardial effusion noted. There is large left-sided pleural effusion seen. Conclusion 1. Mild biatrial normal, normal left ventricular size, mild concentric left ventricular hypertrophy, estimated ejection fraction 55% with no regional wall motion abnormality, grade 1 diastolic dysfunction seen without tissue Doppler evidence of raise left atrial pressure. 2. Mildly enlarged right ventricle with normal contractility. 3. Trace mitral and tricuspid regurgitation. 4. Trivial pericardial effusion and large left-sided pleural effusion seen. 5. Inferior vena cava is poorly visualized. Electronically signed by : Chino Daniels MD 08/09/2021 19:12:23
--- NOTE | 2021-08-09 08:19 | HMH.ACPN2 ---
Internal Medicine - PN: Subj *Date: 08/09/21 *Time: 08:25 Interval history: Patient states she does feel little better today. She awakened at 4:30 AM with a coughing spasm. She has these periodically. The DuoNeb treatments do help. She states she breathes better when she leans forward. She is eating better and ate all her breakfast this morning. She states this is her favorite meal. She ambulates independently. She is voiding QS. Exam Vital signs and Labs for Last 24 Hours: Temp Pulse Resp BP Pulse Ox 97.8 F 92 H 20 149/93 H 92 L 08/09/21 03:42 08/09/21 06:24 08/09/21 03:42 08/09/21 03:42 08/09/21 06:24 Laboratory Results - last 24 hr 08/08/21 09:15: Vancomycin Peak 30.5 I & O for Last 24 hours: Intake & Output 08/06/21 08/07/21 08/08/21 08/09/21 11:59 11:59 11:59 11:59 Intake Total 300 / 300 420 / 420 4540 / 4540 300 / 300 Balance 300 / 300 420 / 420 4540 / 4540 300 / 300 Weight 173 lb 1 oz 178 lb 178 lb 9.191 oz 180 lb 12.8 oz Microbiology Reports for the Last 24 Hours: Microbiology 08/06/21 23:04 Sputum - Expectorated Sputum Gram Stain - Final 08/06/21 23:04 Sputum - Expectorated Sputum Sputum Culture - Final Normal Respiratory Shobha - Constitutional no acute distress Comments: Some dyspnea with talking - *Routine Respiratory Exam Present: wheezes (Expiratory and expiratory wheezing throughout) - *Routine Cardiovascular Exam Present: RRR - *Routine Abdominal Exam Present: soft, normoactive bowel sounds. Absent: tenderness - *Routine Extremities Exam Present: edema, calf tenderness - *Routine Neurological Exam Present: alert, oriented X3 Assessment and Plan (1) Traumatic ecchymosis of left orbit Status: Acute Category: Medical Code(s): S05.12XA - Contusion of eyeball and orbital tissues, left eye, initial encounter (2) CAP (community acquired pneumonia) Status: Acute Qualifiers: Laterality: left Lung location: unspecified part of lung Qualified Code(s): J18.9 - Pneumonia, unspecified organism Category: Medical Code(s): J18.9 - Pneumonia, unspecified organism (3) Febrile illness, acute Status: Acute Category: Medical Code(s): R50.9 - Fever, unspecified (4) SIRS (systemic inflammatory response syndrome) Status: Acute Category: Medical Code(s): R65.10 - Systemic inflammatory response syndrome (SIRS) of non-infectious origin without acute organ dysfunction (5) Metastatic renal cell carcinoma Status: Chronic Qualifiers: Laterality: unspecified laterality Qualified Code(s): C64.9 - Malignant neoplasm of unspecified kidney, except renal pelvis Category: Medical Code(s): C64.9 - Malignant neoplasm of unspecified kidney, except renal pelvis (6) Atypical chest pain Status: Acute Category: Medical Code(s): R07.89 - Other chest pain (7) Pleural effusion on left Status: Acute Category: Medical Code(s): J90 - Pleural effusion, not elsewhere classified - Assessment and plan all Dx Assessment and Plan for all problems:: We will check echocardiogram today. We will add Bromfed for PND and cough.
--- NOTE | 2021-08-09 09:18 | HMH.PULMPN ---
Internal Medicine - PN: Subj *Date: 08/09/21 *Time: 10:23 Interval history: No acute respiratory events overnight. Denies any new respiratory complaints. Exam - Constitutional Constitutional:: Present: no acute distress, comfortable - HENMT Exam HENMT: Present: normocephalic - Eye Exam Eyes:: Present: normal appearance both eyes and related structures - Neck Exam Neck:: Present: normal visual inspection - Respiratory Exam Respiratory:: Present: able to speak in complete sentences, respiratory distress, decreased breath sounds. Absent: wheezing - Cardiovascular Exam Cardiac:: Present: S1, S2 - GI Exam GI:: Present: soft, no hepatosplenomegaly - Skin Exam Skin: Present: warm, no rash - Neurological Exam Neurological: Present: alert, awake, normal cognition - Extremities Exam Extremities: Present: no cyanosis, no clubbing, edema - Psychiatric Exam Psychiatric: Present: normal affect Assessment and Plan (1) Traumatic ecchymosis of left orbit Status: Acute Category: Medical Code(s): S05.12XA - Contusion of eyeball and orbital tissues, left eye, initial encounter (2) CAP (community acquired pneumonia) Status: Acute Qualifiers: Laterality: left Lung location: unspecified part of lung Qualified Code(s): J18.9 - Pneumonia, unspecified organism Category: Medical Code(s): J18.9 - Pneumonia, unspecified organism (3) Febrile illness, acute Status: Acute Category: Medical Code(s): R50.9 - Fever, unspecified (4) SIRS (systemic inflammatory response syndrome) Status: Acute Category: Medical Code(s): R65.10 - Systemic inflammatory response syndrome (SIRS) of non-infectious origin without acute organ dysfunction (5) Metastatic renal cell carcinoma Status: Chronic Qualifiers: Laterality: unspecified laterality Qualified Code(s): C64.9 - Malignant neoplasm of unspecified kidney, except renal pelvis Category: Medical Code(s): C64.9 - Malignant neoplasm of unspecified kidney, except renal pelvis (6) Atypical chest pain Status: Acute Category: Medical Code(s): R07.89 - Other chest pain (7) Pleural effusion on left Status: Acute Category: Medical Code(s): J90 - Pleural effusion, not elsewhere classified - Assessment and plan all Dx Assessment and Plan for all problems:: #Pneumonia: #Left pleural effusion: 56-year-old metastatic renal cancer stage IV upon diagnosis with left upper lobe metastatic lesion and left effusion presented with worsening respiratory distress and found to be having enlarging left pleural effusion and pulmonary was called for further management. Chest x-ray reviewed, patient having dense diffuse left-sided opacification can be from extension for renal cell carcinoma Vs.effusion. We will obtain a CT chest without contrast. She recently had a thoracentesis performed unclear of the amount of fluid drained however the pathology report negative for malignancy from 07/29/2021. Presented to the ER on 08/06/2021 with 1 recording of 104.4. Sputum on admission grew gram-positive diplococci on the steroids. Appropriate sample. Blood cultures no growth 48 hours. Bilateral 2+ lower extremity edema and left upper extremity edema. CT chest reviewed, mild left pleural effusion, improved from her most recent CT from July 2021 along with left lower lobe atelectasis and extensive cancer involvement of the left upper lobe along with lymphadenopathy. No significant change in the left upper lobe and left lingular malignancy noted. She was initiated on vancomycin and cefepime upon admission., Sputum on admission grew rare gram-positive cocci and diphtheroids eventually resulted as normal respiratory stevie. Interval update: Patient remained afebrile. Continues to remain on room air, this morning saturating 98%. Noted to have desaturations with coughing. Improving leukocytosis. Pending nasal MRSA PCR. Will discontinue vancomycin. Continue cefepime x7 days.
[2021-08-10] VITALS: BP 171/86; PULSE 89; RESP 18; TEMP 36.8; O2SAT 92
[2021-08-10 04:00] VITALS: BP 159/89; PULSE 83; RESP 19; TEMP 36.4; O2SAT 91
[2021-08-10 04:54] VITALS: BMI 29.9
--- NOTE | 2021-08-10 04:57 | PC.NURSE ---
pt has rested some this shift, has complained of pain in right leg one time this shift and was treated per MAY, has worn 2L NC intermittently, O2 sats 92-94%, wheezing noted bilateral upper lobes
[2021-08-10 06:04] VITALS: PULSE 84; PULSE 88; O2SAT 93
[2021-08-10 08:00] VITALS: BP 150/86; PULSE 84; RESP 16; TEMP 36.9; O2SAT 94
--- NOTE | 2021-08-10 08:29 | HMH.ACPN2 ---
Internal Medicine - PN: Subj *Date: 08/10/21 *Time: 08:29 Interval history: Patient states she is feeling better today. She has coughing fits and requires oxygen. She has remained afebrile. She was seen by pulmonology yesterday and he discontinued her vancomycin, but wanted to continue her cefepime. He did not feel she would need a thoracentesis. He felt she could follow-up with him in his office and continue to follow with oncology. Exam Vital signs and Labs for Last 24 Hours: Temp Pulse Resp BP Pulse Ox 97.5 F L 84 19 159/89 H 93 L 08/10/21 04:00 08/10/21 06:04 08/10/21 04:00 08/10/21 04:00 08/10/21 06:04 I & O for Last 24 hours: Intake & Output 08/07/21 08/08/21 08/09/21 08/10/21 11:59 11:59 11:59 11:59 Intake Total 420 / 420 4540 / 4540 540 / 540 1010 / 1010 Output Total 200 / 200 Balance 420 / 420 4540 / 4540 340 / 340 1010 / 1010 Weight 178 lb 178 lb 9.191 oz 180 lb 12.8 oz 179 lb 14.4 oz Microbiology Reports for the Last 24 Hours: Microbiology 08/08/21 11:43 Nose - Nasal MRSA Culture - Final Negative 08/06/21 23:04 Sputum - Expectorated Sputum Gram Stain - Final 08/06/21 23:04 Sputum - Expectorated Sputum Sputum Culture - Final Normal Respiratory Shobha - Constitutional no acute distress - *Routine HEENT Exam Head: Present: normocephalic Eye: Present: EOMI, PERRL ENT: Present: mucous membranes moist - *Routine Neck Exam Present: supple. Absent: lymphadenopathy - *Routine Respiratory Exam Present: decreased breath sounds, rales - *Routine Cardiovascular Exam Present: RRR - *Routine Abdominal Exam Present: soft, normoactive bowel sounds. Absent: tenderness - *Routine Extremities Exam Absent: cyanosis, clubbing, edema - *Routine Skin Exam Present: warm. Absent: rash - *Routine Neurological Exam Present: alert, oriented X3 Assessment and Plan (1) Traumatic ecchymosis of left orbit Status: Acute Category: Medical Code(s): S05.12XA - Contusion of eyeball and orbital tissues, left eye, initial encounter (2) CAP (community acquired pneumonia) Status: Acute Qualifiers: Laterality: left Lung location: unspecified part of lung Qualified Code(s): J18.9 - Pneumonia, unspecified organism Category: Medical Code(s): J18.9 - Pneumonia, unspecified organism (3) Febrile illness, acute Status: Acute Category: Medical Code(s): R50.9 - Fever, unspecified (4) SIRS (systemic inflammatory response syndrome) Status: Acute Category: Medical Code(s): R65.10 - Systemic inflammatory response syndrome (SIRS) of non-infectious origin without acute organ dysfunction (5) Metastatic renal cell carcinoma Status: Chronic Qualifiers: Laterality: unspecified laterality Qualified Code(s): C64.9 - Malignant neoplasm of unspecified kidney, except renal pelvis Category: Medical Code(s): C64.9 - Malignant neoplasm of unspecified kidney, except renal pelvis (6) Atypical chest pain Status: Acute Category: Medical Code(s): R07.89 - Other chest pain (7) Pleural effusion on left Status: Acute Category: Medical Code(s): J90 - Pleural effusion, not elsewhere classified - Assessment and plan all Dx Assessment and Plan for all problems:: Patient may be able to be discharged today with oncology and pulmonology follow-up. Will discuss with Dr. Jordan.
--- NOTE | 2021-08-10 09:10 | HMH.PULMPN ---
Internal Medicine - PN: Subj *Date: 08/10/21 *Time: 10:05 Interval history: No acute respiratory vents overnight. Continues to remain on room air. Exam - Constitutional Constitutional:: Present: no acute distress, comfortable - HENMT Exam HENMT: Present: normocephalic - Eye Exam Eyes:: Present: normal appearance both eyes and related structures - Neck Exam Neck:: Present: normal visual inspection - Respiratory Exam Respiratory:: Present: able to speak in complete sentences, no respiratory distress, decreased breath sounds. Absent: wheezing - Cardiovascular Exam Cardiac:: Present: S1, S2 - GI Exam GI:: Present: soft, no hepatosplenomegaly - Skin Exam Skin: Present: warm, no rash - Neurological Exam Neurological: Present: alert, awake, normal cognition - Extremities Exam Extremities: Present: no cyanosis, no clubbing, edema - Psychiatric Exam Psychiatric: Present: normal affect Assessment and Plan (1) Traumatic ecchymosis of left orbit Status: Acute Category: Medical Code(s): S05.12XA - Contusion of eyeball and orbital tissues, left eye, initial encounter (2) CAP (community acquired pneumonia) Status: Acute Qualifiers: Laterality: left Lung location: unspecified part of lung Qualified Code(s): J18.9 - Pneumonia, unspecified organism Category: Medical Code(s): J18.9 - Pneumonia, unspecified organism (3) Febrile illness, acute Status: Acute Category: Medical Code(s): R50.9 - Fever, unspecified (4) SIRS (systemic inflammatory response syndrome) Status: Acute Category: Medical Code(s): R65.10 - Systemic inflammatory response syndrome (SIRS) of non-infectious origin without acute organ dysfunction (5) Metastatic renal cell carcinoma Status: Chronic Qualifiers: Laterality: unspecified laterality Qualified Code(s): C64.9 - Malignant neoplasm of unspecified kidney, except renal pelvis Category: Medical Code(s): C64.9 - Malignant neoplasm of unspecified kidney, except renal pelvis (6) Atypical chest pain Status: Acute Category: Medical Code(s): R07.89 - Other chest pain (7) Pleural effusion on left Status: Acute Category: Medical Code(s): J90 - Pleural effusion, not elsewhere classified - Assessment and plan all Dx Assessment and Plan for all problems:: #Pneumonia: #Left pleural effusion: 56-year-old metastatic renal cancer stage IV upon diagnosis with left upper lobe metastatic lesion and left effusion presented with worsening respiratory distress and found to be having enlarging left pleural effusion and pulmonary was called for further management. Chest x-ray reviewed, patient having dense diffuse left-sided opacification can be from extension for renal cell carcinoma Vs.effusion. We will obtain a CT chest without contrast. She recently had a thoracentesis performed unclear of the amount of fluid drained however the pathology report negative for malignancy from 07/29/2021. Presented to the ER on 08/06/2021 with 1 recording of 104.4. Sputum on admission grew gram-positive diplococci on the steroids. Appropriate sample. Blood cultures no growth 48 hours. Bilateral 2+ lower extremity edema and left upper extremity edema. CT chest reviewed, mild left pleural effusion, improved from her most recent CT from July 2021 along with left lower lobe atelectasis and extensive cancer involvement of the left upper lobe along with lymphadenopathy. No significant change in the left upper lobe and left lingular malignancy noted. She was initiated on vancomycin and cefepime upon admission., Sputum on admission grew rare gram-positive cocci and diphtheroids eventually resulted as normal respiratory stevie. Interval update: Attic echocardiogram showed normal EF, grade 1 LV diastolic dysfunction. Volume optimization as per primary team. Continued clinical improvement. Will wean antibiotics levofloxacin to complete a total of 10-day course from initiation of cefep
--- NOTE | 2021-08-13 22:25 | HMH.DCSUM ---
General - General Admission date:: 08/06/21 Discharge date: 08/10/21 HPI HPI: This 56-year-old white female presented in the emergency room with complaints of fever to 104 and shortness of breath. 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 Her diagnosis was made in April 2017. She has been followed at [facility] and by Dr. Abreu oncologist. She has had radiation therapy to the primary N2 lymph nodes in July 2017. She has had chemotherapy. She has been treated with Opdivo and Yervoy but had an intolerance to Yervoy. More recently she was treated with Opdivo alone, but this was discontinued about a month ago. Recently she was prescribed, on 08/01/2021, cabozantinib 60 mg daily. 2 weeks ago she was treated for left pleural effusion with a thoracentesis. She states that she had 1750 cc of fluid removed. She has a history of chronic pain and has had a pain pump placed. She has hypothyroidism. She has hypertension. She has a history of migraine headaches. Hospital Course Hospital Course: The patient was admitted and started on IV antibiotics and pulmonology was consulted. Her chest x-ray showed extensive airspace opacity throughout the left lung and she had diminished left pulmonary volume. It was suspected that she had a large left pleural effusion. Her head CT showed nothing acute. She did begin feeling better, but continued with shortness of breath and a frequent cough. She was continued on cefepime and vancomycin as well as duo nebs. She was seen by the coding quality coordinator and her room air sats were 91%. He wanted to continue with oxygen on an as needed basis. He ordered a chest CT which showed a mild left pleural effusion. It was improved from her recent CT from July 2021. There was a left lower lobe atelectasis and extensive cancer involvement of the left upper lobe along with lymphadenopathy. He did not feel the patient would need a thoracentesis and was concerned she may have a malignant effusion. Most recent thoracentesis was negative for malignancy. He wanted to follow with the patient in the pulmonary clinic 1 week postdischarge for repeat chest x-ray and he also recommended an evaluation for possible CHF given her worsening swelling and orthopnea. An echo was ordered and showed an EF of 55% with grade 1 diastolic dysfunction. There was a trivial pericardial effusion and large left-sided pleural effusion noted. The patient did continue feeling better. She had coughing spasms and needed oxygen during these periods. She was able to begin eating and ambulating. Bromfed was added for her cough. Her sputum and blood cultures showed no growth. The coding quality coordinator wanted her to continue cefepime, but recommended discontinuing the vancomycin. By 08/10/2021 the patient had remained afebrile and her symptoms continued to improve. It was felt she was stable to discharge with both an oncology and pulmonology follow-up. Objective Vital signs: Temp Pulse Resp BP Pulse Ox 98.5 F 84 16 150/86 H 94 L 08/10/21 08:00 08/10/21 08:00 08/10/21 08:00 08/10/21 08:00 08/10/21 08:00 Narrative: - *Routine HEENT Exam Head: Present: normocephalic. Absent: atraumatic (Resolving ecchymosis of left infraorbital area) Eye: Present: EOMI, PERRL ENT: Present: mucous membranes moist (Her voice sounds hoarse) - *Routine Neck Exam Present: supple. Absent: JVD, lymphadenopathy - *Routine Respiratory Exam Present: decreased breath sounds (More decreased on left than right), rhonchi, wheezes - *Routine Cardiovascular Exam Present: RRR - *Routine Abdominal Exam Present: soft, normoactive bowel sounds. Absent: tenderness - *Routine Rectal Exam Rectal:: deferred - *Routine Genitalia Exam Genitalia:: deferred - *Routine Extremities Exam Absent: cyanosis, clubbing, edema (She has some support netting on the right lower leg) - *Routine Skin Exam Presen
== END 2021-08-10 10:26 | disposition home or self-care (01) | DRG 194 ==
LOC: ER 00:22 → 2ND 02:53
PROVIDERS: Admitting Provider Family Medicine; Emergency Provider Emergency Medicine; PCP Family Medicine; Visit Provider Family Medicine
DX: J18.9 Pneumonia, unspecified organism (principal); C64.9 Malignant neoplasm of unspecified kidney, except renal pelvis; C78.7 Secondary malignant neoplasm of liver and intrahepatic bile duct; C77.9 Secondary and unspecified malignant neoplasm of lymph node, unspecified; J90 Pleural effusion, not elsewhere classified; S05.12XA Contusion of eyeball and orbital tissues, left eye, initial encounter; R07.89 Other chest pain; Z87.891 Personal history of nicotine dependence; M19.90 Unspecified osteoarthritis, unspecified site; E03.9 Hypothyroidism, unspecified; F41.9 Anxiety disorder, unspecified; F32.A Depression, unspecified; G89.29 Other chronic pain
CPT/HCPCS: 36415; 70450; 71045; 71250; 80048; 80053; 80202; 81001; 82803; 83605; 83880; 84145; 84443; 84484; 85007; 85014; 85018; 85025; 85048; 85049; 85651; 86140; 87040; 87070; 87081; 87205; 93005; 93306; 94640; 94761; 97140; 99285; C9803; J0692; U0003; U0005

== ENCOUNTER → 2021-08-11 10:09 | Outpatient (POV) | payer MEDICARE, SELFPAY ==
[2021-08-11 10:35] VITALS: BP 163/84; PULSE 88; RESP 20; TEMP 37.2; O2SAT 94; BMI 29.6
--- NOTE | 2021-08-11 11:31 | HMH.PAINSOAP ---
[facility] Pain Management SOAP Note Subjective:: Patient is a pleasant 56-year-old female who is here for medication refill and follow-up. Patient is currently being treated for chronic pain syndrome secondary to renal cell carcinoma. Patient is current being treated by oncology. Patient is being managed with oxycodone 10 mg 4 times a day and Lyrica 75 mg 3 times a day. Patient denies any side effects from the medications. Patient denies any changes to the location and type of pain. Patient states that the Lyrica does help with her neuropathic pain however she continues to have dull prickling pain around her right leg. She wants to know if we can increase this medication. Patient is also prescribed fentanyl patch 12 mcg every hours. Patient states that she uses 1 patch once a week and she changes it every Sunday. She still has some patches at home and does not need refill on this. Rates pain as 2 out of 10. [employer] [facility] number [phone] with an active morphine equivalent 60. Drug screens have been reviewed and appropriate. Review of Systems: General: No recent weight changes, no fever, no sleep disturbances Respiratory: No cough, no shortness of air, no recurring pulmonary infections Cardiovascular/peripheral vascular: No chest pain, no palpitations, no edema, no shortness of breath Gastrointestinal: No new onset incontinence, normal bowel movements reported Genitourinary: No new onset incontinence Musculoskeletal: Bilateral leg pain Psychiatric: [Normal mood/affect] Neurological: [Denies weakness in extremities], [denies balance issues] Objective:: Physical Exam: General: Alert and oriented x3, no acute distress, pleasant and cooperative Lungs: Respirations even and unlabored, symmetrical chest expansion Eyes: PERRL Musculoskeletal: Flexion and extension of lumbar [spine] somewhat guarded secondary to pain, [antalgic gait noted] Neurological: Speech clear, no gross sensory deficit Assessment:: Chronic pain syndrome secondary to renal cell carcinoma, metastatic disease Plan:: We will continue the patient's oxycodone 10 mg 4 times a day. We will increase the patient's Lyrica to Lyrica 100 mg 3 times a day. We will provide the patient with 1 month of refills. We would like to see the patient back in 1 month for follow-up and reevaluation of chronic pain syndrome. Patient has been advised of risks of oversedation with the prescribed medication. Narcan has been offered to the patient in the event of oversedation. Patient has been advised that a family member should also be educated regarding administration of Narcan. Patient has been instructed to contact the clinic with any concerns before the next appointment. Dr. Daniels has reviewed this note and agrees with this plan of care. This note was dictated using voice recognition software and make contain errors or omissions. [facility] History Medical History: Reports:: Aneurysm, Anxiety, Cancer, Congestive Heart Failure, Depression, Hyperlipidemia, Hypertension, Migraine, Renal Disease Denies:: Coronary Artery Disease, Diabetes Mellitus Type 1, Diabetes Mellitus Type 2, Internal Pacemaker, MRSA, Seizures *Have you ever received a pneumonia vaccine?: Yes *Have you received a flu vaccine this season?: No Other Medical History: Reports: Anemia, Arthritis, Blood Transfusion Reaction, Chemotherapy, Hormone Therapy, Hypothyroidism, Liver Disease, Radiation Therapy, Thyroid Disease Laterality Cases: Left: Breast Biopsy, Right: Carpal Tunnel Release Other Surgeries: Yes: No Previous Surgery, Cancer Surgery (renal biopsy;left auxillary lymph node bx), Colonoscopy, , Hysterectomy-Total, Other (renal biopsy, lt axillary node bx). No: Pacemaker Amputation: No Fractures: No - *Social History Smoking Status: Former smoker Tobacco Type: cigarettes # Packs/Day (cigarettes): 1 #Yrs smoked (if former smoker): 30 Alcohol Intake: never Alcohol Intake Frequency:: other Substance Use Type: denies us
== END ==
PROVIDERS: Visit Provider Student in an Organized Health Care Education/Training Program
DX: G89.3 Neoplasm related pain (acute) (chronic) (principal); C64.9 Malignant neoplasm of unspecified kidney, except renal pelvis
CPT/HCPCS: 99212; G0463

== ENCOUNTER → 2021-08-18 16:14 | Outpatient (CLI) | payer MEDICARE, SELFPAY ==
--- NOTE | 2021-08-18 16:17 | XR_ITS ---
PROCEDURE INFORMATION: Exam: XR Chest Exam date and time: 08/18/2021 4:21 PM Age: 56 years old Clinical indication: Dyspnea and other: Pneumonia; Patient HX: H/o cancer TECHNIQUE: Imaging protocol: XR of the chest. Views: 2 views. COMPARISON: CT CHEST WO CON 08/08/2021 9:53 AM FINDINGS: Lungs: Diffuse opacity in the left hemithorax may represent a combination of pneumonia and lung cancer. There was a similar appearance on the CT chest August 08, 2021. Pleural spaces: Moderate to large left pleural effusion.. Heart/Mediastinum: Unremarkable. No cardiomegaly. Bones/joints: Unremarkable. IMPRESSION: 1. Moderate to large left pleural effusion.. 2. Diffuse opacity in the left hemithorax may represent a combination of pneumonia and lung cancer. There was a similar appearance on the CT chest August 08, 2021.
== END ==
PROVIDERS: PCP Family Medicine; Visit Provider Internal Medicine Pulmonary Disease
DX: R06.02 Shortness of breath (principal)
CPT/HCPCS: 71046

== ENCOUNTER → 2021-08-24 10:00 | Outpatient (CLI) | payer MEDICARE, SELFPAY ==
[2021-08-24 09:54] VITALS: BMI 28.9
[2021-08-24 10:09] VITALS: BP 151/84; PULSE 87; RESP 18; TEMP 36.3; O2SAT 92
--- NOTE | 2021-08-24 10:27 | US_ITS ---
FINAL REPORT CLINICAL HISTORY: LT PLEURAL EFFUSION -- per jonathan santoyo-- 1 liter FINDINGS: ULTRASOUND-GUIDED THORACENTESIS HISTORY: Left pleural effusion. ATTENDING PHYSICIAN: Dr. Walton PHYSICIAN CARD MAKER: Jonathan Mosley PA-C TECHNIQUE: Informed consent was obtained from the patient. The indications and complications were discussed with the patient prior to beginning the procedure. This included, but was not limited to pain, bleeding, infection, and pneumothorax requiring chest tube placement. The left back was then prepped and draped in sterile fashion. 1% Lidocaine was used for local anesthesia. Utilizing sonographic guidance, a standard thoracentesis needle and sheath were inserted into the pleural space and approximately 1000 mL of dark yellow, clear pleural fluid was successfully removed without complication. The patient tolerated the procedure well. IMPRESSION: Technically successful sonographic guided left-sided thoracentesis as above. Films reviewed , interpreted and dictated by Dr. Karrie Walton. Transcribed by Jonathan Mosley PA-C. Reviewed, Interpreted and Dictated by Karrie Walton MD Transcribed by DISHA Jackson Authenticated by Karrie Walton MD on 08/24/2021 04:06:59 PM [facility]
--- NOTE | 2021-08-24 10:52 | XR_ITS ---
FINAL REPORT CLINICAL HISTORY: . post thoracentesis COMPARISON: 08/18/2021 FINDINGS: PA and lateral views of the chest were obtained. The cardiac and mediastinal silhouettes are within normal limits. There has been interval improvement in the left lung opacity and left pleural effusion. There is no pneumothorax after thoracentesis. The right lung is clear. No acute osseous abnormality is identified. IMPRESSION: Interval improvement in the left lung opacity and left pleural effusion. No pneumothorax after thoracentesis. Reviewed, Interpreted and Dictated by Karrie Walton MD Transcribed by Narda Pineda Authenticated by Karrie Walton MD on 08/24/2021 02:36:57 PM [facility]
[2021-08-25 11:32] LABS: Glucose, Body Fluid 144 mg/dL (.); LD, Body Fluid 142 IU/L (.); Protein, Body Fluid 4.6 g/dL (.)
[2021-08-26 16:14] LABS: pH, Body Fluid 7.7 (Not Estab.)
== END ==
PROVIDERS: PCP Family Medicine; Visit Provider Internal Medicine Pulmonary Disease
DX: J90 Pleural effusion, not elsewhere classified (principal)
CPT/HCPCS: 32555; 71046; 82042; 82945; 83615; 83986; 84155; 87070; 87205; 88112; 88305

== ENCOUNTER 2021-08-24 14:00 | Outpatient (RCR) | payer MEDICARE, SELFPAY ==
--- NOTE | 2021-08-01 10:33 | HMH.PTOPWND ---
Rehab Outpt Wound Evaluation Rehab OP Wound Evaluation Start: 08/01/21 09:56 Freq: Status: Active Protocol: Document 08/01/21 10:19 ROSA (Rec: 08/01/21 10:33 PHORNITHIN [id number]) Electronically Signed By Kaden Choudhury, PT 08/01/21 10:19 Subjective/History History History Pt is 56 yowf who presents with c/o L breast and L UE edema x ~ 1-2 wks with worsening tenderness to palpation. in the L breast and axilla. Pt has several yr hx of renal cell cancer with mets to lung, liver, and lymph nodes. She had been showing improvement, but recent scans show progression of cancer with increased size of axillary and hilar lymph nodes . She has also been suffering from increased SOA with coughing fits and blacking out. She recently underwent L side thoracentesis due to pleural effusion, as well. She also c/o B LE increased charlie, worse on the R side. She has hx of back and R LE pain with implanted pain pump also. She is also suffering from a recent outbreak of a rash of unknown origin and worsening psoriasis. Subjective Subjective Currently she c/o pain in the R side of low back and post hip, worse with activity. She has 2/4 tenderness to palpation in the L axilla and breast. Lymphedema Eval Classification of Lymphedema Secondary Lymphedema Yes Stemmer's sign Stemmer's Sign no Stage of Lymphedema Lymphedema stages Stage II (Pitting edema, increased fibrosis w/ decreased pitting) Skin Changes Dry Skin Yes Skin Folds Yes Redness Yes Discoloration of Skin Yes Other Changes Yes Pain Scale Pain Scale (0-10) 6 Radiation Therapy Has received radiation therapy yes Chemo Therapy Has received chemo therapy yes Affected Extremities Areas Affected by L
== END 2021-08-24 14:05 | disposition home or self-care (01) ==
LOC: PT 14:00
PROVIDERS: PCP Family Medicine; Visit Provider Internal Medicine Medical Oncology
DX: I89.0 Lymphedema, not elsewhere classified (principal); C64.9 Malignant neoplasm of unspecified kidney, except renal pelvis
CPT/HCPCS: 97140; 97163

== ENCOUNTER → 2021-08-25 13:55 | Outpatient (CLI) | payer MEDICARE, SELFPAY | PROVIDERS: PCP Family Medicine; Visit Provider Internal Medicine Pulmonary Disease | DX: R06.00 Dyspnea, unspecified (principal) | CPT/HCPCS: 94762 ==

== ENCOUNTER 2021-08-26 13:29 | Outpatient (CLI) | payer MEDICARE, SELFPAY ==
[2021-08-26 13:33] VITALS: BMI 28.3
[2021-08-26 13:55] LABS: Alanine Aminotransferase 18 U/L (12-78); Albumin Level 3.5 g/dl (3.5-5.0); Albumin/Globulin Ratio 1.2 (1.1-1.8); Alkaline Phosphatase 123 U/L (38-126); Anion Gap 8.2 mEq/L (5-15); Aspartate Amino Transferase 27 U/L (14-36); Blood Urea Nitrogen 15 mg/dl (7-17); Calcium 8.3 mg/dl (8.4-10.2); Carbon Dioxide 32 mmol/L (22.0-30.0); Chloride 100 mmol/L (98-107); Creatinine Clearance Estimated 124 mL/min (50-200); Estimated Glomerular Filt Rate 103 ml/min (>60); GFR (African American) 124 ML/MIN (>60); Globulin 2.9 g/dL (1.3-3.2); Glucose 102 mg/dl (74-100); Potassium 4.2 mmoL/L (3.5-5.1); Sodium 136 mmol/L (136-145); Total Protein,Serum 6.4 g/dl (6.3-8.2)
[2021-08-26 14:04] LABS: Basophils # 0.1 K/mm3 (0-0.2); Basophils % 2.2 % (0.1-2.0); Eosinophils # 0.6 K/mm3 (0.0-0.4); Eosinophils % 13.2 % (0.1-12.0); Hematocrit 32.8 % (37.0-47.0); Hemoglobin 10.4 g/dL (12.2-16.2); Lymphocytes # 0.6 K/mm3 (0.7-4.5); Lymphocytes % 13.9 % (10-50); Mean Corpuscular HGB Conc 31.8 g/dL (31.8-35.4); Mean Corpuscular Hemoglobin 23.8 pg (27.0-31.2); Mean Corpuscular Volume 74.7 fl (81-99); Monocytes # 0.3 K/mm3 (0.1-1.0); Monocytes % 5.5 % (1.7-9.3); Neutrophils % 65.1 % (37.0-80.0); Platelet Count 365 K/mm3 (142-424); Red Blood Count 4.39 M/mm3 (4.20-5.40); Red Cell Distribution Width 17.8 % (11.5-17.5); White Blood Count 4.6 K/mm3 (4.8-10.8)
[2021-08-26 14:11] LABS: Bilirubin,Total < 0.1 mg/dl (0.2-1.3)
== END 2021-08-26 13:39 | disposition home or self-care (01) ==
LOC: INF 13:30
PROVIDERS: PCP Family Medicine; Visit Provider Internal Medicine Medical Oncology
DX: C80.0 Disseminated malignant neoplasm, unspecified (principal)
CPT/HCPCS: 36415; 80053; 85025

== ENCOUNTER 2021-08-29 10:46 | Inpatient (IN) | payer MEDICARE, OTHER, SELFPAY ==
[2021-08-29] VITALS (26 sets, daily range): BP systolic 68–147; BP diastolic 0–89; PULSE 84–122; RESP 16–32; TEMP 36.4–37.7; O2SAT 88–100; BMI 28.3; BMI 28.8
--- NOTE | 2021-08-29 10:53 | HMH.EDGENADL ---
ED Disposition Clinical Impression: Acute respiratory failure Qualifiers: Respiratory failure complication: hypoxia Qualified Code(s): J96.01 - Acute respiratory failure with hypoxia Sepsis Qualifiers: Sepsis type: sepsis due to unspecified organism Sepsis acute organ dysfunction status: unspecified Qualified Code(s): A41.9 - Sepsis, unspecified organism Disposition: Admitted As Inpatient Condition on Discharge: Critical Referrals: Guillaume Toro MD [Primary Care Provider] - - Critical Care Critical Care Time: Yes Attestation: On 08/29/21, the high probability of a clinically significant, sudden or life threatening deterioration of the following system(s) required my full and direct attention, intervention and personal management. The time I documented below is in addition to time spent performing reported procedures but includes the following listed in this critical care notation. Total Critical Care Time: 30 Vital system(s) involved:: Respiratory Failure, Shock (Septic) My critical care processes included: Assessment & monitoring of V/S, Initial and Re-exams, Data Review/Interpretation, Coordinating Care, Documentation Medical Decision Making - Medical Records Medical records reviewed: Yes: I reviewed the patient's medical records. - Edson Inquiry Pt receiving controlled substance: No Vital Signs: 08/29/21 10:46 08/29/21 10:53 08/29/21 11:15 Temperature 97.8 F Temperature Source Oral Pulse Rate 99 H 98 H Pulse Rate [Radial] 98 H Respiratory Rate 22 24 23 Blood Pressure 73/43 L 70/58 L Blood Pressure [Right Arm] 73/43 L Blood Pressure Mean 46 Blood Pressure Mean [Right Arm] 53 Blood Pressure Source Blood Pressure Position Blood Pressure Position [Right Arm] Sitting 02 Sat by Pulse Oximetry 88 L 92 L 95 Oxygen Delivery Method Room Air Nasal Cannula Nasal Cannula Oxygen Flow Rate (LPM) 2 2 08/29/21 11:36 08/29/21 11:45 08/29/21 12:13 Temperature Temperature Source Pulse Rate 88 90 Pulse Rate [Radial] Respiratory Rate 30 H 20 Blood Pressure 68/0 L 72/48 L 92/57 L Blood Pressure [Right Arm] Blood Pressure Mean 70 Blood Pressure Mean [Right Arm] Blood Pressure Source Manual Cuff/ Auscultation Blood Pressure Position Sitting Blood Pressure Position [Right Arm] 02 Sat by Pulse Oximetry 92 L 100 Oxygen Delivery Method Nasal Cannula Oxygen Flow Rate (LPM) 2 - Lab Data Lab results reviewed: Yes: I reviewed the patient's lab results. Lab Results 08/29/21 10:58: VBG pH 7.29 L, VBG pCO2 52.8 H, VBG pO2 46.3 H, VBG HCO3 24.5, VBG Total CO2 26.2, VBG O2 Saturation 79.0 H, VBG Base Excess -2.1 08/29/21 11:06: WBC 11.7 H D, RBC 5.41 H, Hgb 12.5, Hct 40.8, MCV 75.3 L, MCH 23.0 L, MCHC 30.6 L, RDW 17.8 H, Plt Count 494 H D, MPV 8.4, Neut % (Auto) 94.5 H, Lymph % (Auto) 1.1 L, [place] % (Auto) 1.7, Eos % (Auto) 2.3, Baso % (Auto) 0.4, Neut # (Auto) 11.0 H, Lymph # (Auto) 0.1 L, [place] # (Auto) 0.2, Eos # (Auto) 0.3, Baso # (Auto) 0.1, Total Counted 100, Neutrophils % (Manual) 80 H, Band Neutrophils % 16.0 H, Lymphocytes % (Manual) 1 L, Monocytes % (Manual) 1 L, Eosinophils % (Manual) 2, Platelet Estimate Slight increase, RBC Morphology Not Reportable, Anisocytosis 1+, Microcytosis 1+, Ovalocytes 1+ 08/29/21 11:06: Sodium 137, Potassium 3.7, Chloride 99, Carbon Dioxide 29, Anion Gap 12.7, BUN 18 H, Creatinine 1.20 H D, Estimated Creat Clear 62, Estimated GFR 46 L, Est GFR ( Amer) 56 L D, Glucose 175 H, Calcium 8.2 L, Total Bilirubin 0.4, AST 42 H D, ALT 27 D, Alkaline Phosphatase 137 H, Troponin I < 0.01, NT-Pro-B Natriuret Pep 437 H, Total Protein 6.4, Albumin 3.5, Globulin 2.9, Albumin/Globulin Ratio 1.2 08/29/21 11:06: Lactate 3.6 H 08/29/21 11:06: SARS-CoV-2 (PCR) Not detected, Influenza A Untype (PCR) Not detected, Influenza Type B (PCR) Not detected Result diagrams: 08/29/21 11:06 08/29/21 11:06 Orders (Tests/Meds): ED MEDICATIONS Generic Name
--- NOTE | 2021-08-29 10:57 | XR_ITS ---
PROCEDURE INFORMATION: Exam: XR Chest Exam date and time: 08/29/2021 11:23 AM Age: 56 years old Clinical indication: Shortness of breath; Additional info: SOB TECHNIQUE: Imaging protocol: XR of the chest. Views: 1 view. COMPARISON: CR XR CHEST 2V 08/24/2021 10:55 AM FINDINGS: Lungs: Interstitial prominence. Pleural spaces: Asymmetric left-sided airspace disease and pleural effusion producing near complete opacification of the left hemithorax . Heart/Mediastinum: Borderline cardiomegaly with partial obscuration of the left heart border. Bones/joints: Degenerative change. IMPRESSION: Asymmetric left-sided airspace disease and pleural effusion producing near complete opacification of the left hemithorax .
--- NOTE | 2021-08-29 10:58 | ECG_ITS ---
APPROVED REPORT Exam: Resting ECG HR:96 bpm ECG Measurements Heart Rate 96 AXES VT 134 P 20 QRSd 76 QRS 42 QT 329 T 120 QTc 383 Conclusion SINUS RHYTHM LOW QRS VOLTAGE IN PRECORDIAL LEADS [QRS DEFLECTION < 1.0 mV IN CHEST LEADS] NONSPECIFIC T-WAVE ABNORMALITY ABNORMAL ECG UNCONFIRMED REPORT Electronically signed by : Carmine Everett MD 08/29/2021 21:32:23
[2021-08-29 11:14] LABS: Coronavirus 19, PCR Not Detected (NotDetected); Influenza A, PCR Not Detected (NotDetected); Influenza B, PCR Not Detected (NotDetected)
--- NOTE | 2021-08-29 11:16 | PC.NURSE ---
jose raul notified of cxr order, spoke with arlin
[2021-08-29 11:19] LABS: Basophils # 0.1 K/mm3 (0-0.2); Basophils % 0.4 % (0.1-2.0); Eosinophils # 0.3 K/mm3 (0.0-0.4); Eosinophils % 2.3 % (0.1-12.0); Hematocrit 40.8 % (37.0-47.0); Hemoglobin 12.5 g/dL (12.2-16.2); Lymphocytes # 0.1 K/mm3 (0.7-4.5); Lymphocytes % 1.1 % (10-50); Mean Corpuscular HGB Conc 30.6 g/dL (31.8-35.4); Mean Corpuscular Volume 75.3 fl (81-99); Mean Platelet Volume 8.4 fl (7.4-10.4); Monocytes # 0.2 K/mm3 (0.1-1.0); Monocytes % 1.7 % (1.7-9.3); Neutrophils % 94.5 % (37.0-80.0); Platelet Count 494 K/mm3 (142-424); Red Blood Count 5.41 M/mm3 (4.20-5.40); Red Cell Distribution Width 17.8 % (11.5-17.5); White Blood Count 11.7 K/mm3 (4.8-10.8)
--- NOTE | 2021-08-29 11:25 | PC.NURSE ---
rad at bedside
[2021-08-29 11:26] LABS: MANUAL DIFFERENTIAL MANUAL DIFFERENTIAL (MANUAL DIFF)
[2021-08-29 11:28] LABS: Alanine Aminotransferase 27 U/L (12-78); Albumin Level 3.5 g/dl (3.5-5.0); Albumin/Globulin Ratio 1.2 (1.1-1.8); Alkaline Phosphatase 137 U/L (38-126); Anion Gap 12.7 mEq/L (5-15); Aspartate Amino Transferase 42 U/L (14-36); Bilirubin,Total 0.4 mg/dl (0.2-1.3); Blood Urea Nitrogen 18 mg/dl (7-17); Calcium 8.2 mg/dl (8.4-10.2); Carbon Dioxide 29 mmol/L (22.0-30.0); Chloride 99 mmol/L (98-107); Creatinine Clearance Estimated 62 mL/min (50-200); Estimated Glomerular Filt Rate 46 ml/min (>60); GFR (African American) 56 ML/MIN (>60); Globulin 2.9 g/dL (1.3-3.2); Glucose 175 mg/dl (74-100); Potassium 3.7 mmoL/L (3.5-5.1); Sodium 137 mmol/L (136-145); Total Protein,Serum 6.4 g/dl (6.3-8.2)
[2021-08-29 11:30] LABS: Lactic Acid 3.6 mmol/L (0.7-2.1)
[2021-08-29 11:40] LABS: NT Pro Brain Natriuretic Pep. 437 pg/mL (0-125)
[2021-08-29 11:42] LABS: Eosinophils % 2 % (0-3); Lymphocytes % 1 % (10-50); Monocytes % 1 % (2-9); Neutrophils % 80 % (42-76); Total Cells Counted 100
[2021-08-29 11:42] LABS: VBG Base Excess -2.1 mmol/L (-2.4-2.3); VBG HCO3 24.5 mmol/L (23-30); VBG PH 7.29 mmol/L (7.31-7.41); VBG PO2 46.3 mmol/L (28-40); VBG Total CO2 26.2 mmol/L (23-27)
[2021-08-29 11:43] LABS: Anisocytosis 1+; Microcytosis 1+; Ovalocytes 1+; Platelet Estimate Slight Increase
[2021-08-29 11:44] LABS: Troponin I < 0.01 ng/ml (0.00-0.034)
[2021-08-29 11:45] LABS: VBG PCO2 52.8 mmol/L (35-51)
--- NOTE | 2021-08-29 11:45 | PC.NURSE ---
ER at , having POC discussing with pt and her two children who are at BS. Pt reports she does not want to be intubated or to have CPR, pt wish for comfort measures only. Pt reports to ER MD she does not want to have the fluid drained from her lung at this time r/t it being painful. Pt agreeable to trying bipap.
--- NOTE | 2021-08-29 11:56 | PC.NURSE ---
contacted RT to place pt on bipap per ER verbal order
--- NOTE | 2021-08-29 12:03 | PC.NURSE ---
RT at BS
--- NOTE | 2021-08-29 12:25 | PC.NURSE ---
slab depiler operator paging ux interaction designer dr kayla hollins
--- NOTE | 2021-08-29 12:29 | PC.NURSE ---
POLLY CUEVAS speaking with Dr. Womack who is salesperson neckties for Dr Toro
--- NOTE | 2021-08-29 12:42 | HMH.ITSTN ---
PE study ordered, however patient unable to lay flat at all , sob, xray shows lung white out on left side -- discussed with ER we are canceling for now due to patient condition
--- NOTE | 2021-08-29 13:32 | PC.NURSE ---
per gavin wardrobe consultant on second floor, they are waiting on a pt to be d/c and then will clean the room pt has been assigned to.
--- NOTE | 2021-08-29 13:52 | PC.NURSE ---
0041: SPOKE WITH Stevie GUO, PRIMARY RN OF PATIENT. INFORMED HER THAT PATIENT HAD NOT RECEIVED ENOUGH VOLUME TO COMPLETE SEPSIS BOLUS RELATED TO INITIAL HYPOTENSION. Stevie GUO, RN STATED THAT MD DID NOT WANT TO FLUID OVERLOAD THE PATIENT AND STARTED HER ON LEVOPHED. INFORMED HER TO HAVE ER MD DOCUMENT DOCUMENT IN ED NOTE REASON FOR NOT GIVING FULL SEPSIS BOLUS.
--- NOTE | 2021-08-29 14:07 | PC.NURSE ---
charge nurse on second floor reports they are cleaning the assigned room for pt at this time, states they will call to get report on pt when room is ready. Notified chelsea,rn- pt primary nurse
--- NOTE | 2021-08-29 14:10 | PC.NURSE ---
ATTEMPTED TO GIVE REPORT, NURSE WILL NEED TO RETURN CALL
--- NOTE | 2021-08-29 14:46 | CT_ITS ---
PROCEDURE INFORMATION: Exam: CTA Chest With Contrast Exam date and time: 08/29/2021 2:55 PM Age: 56 years old Clinical indication: Shortness of breath and other: Cancer; Additional info: SOA, cancer PT TECHNIQUE: Imaging protocol: Computed tomographic angiography of the chest with contrast. 3D rendering (Not supervised by radiologist): MIP and/or 3D reconstructed images were created by the technologist. Radiation optimization: All CT scans at this facility use at least one of these dose optimization techniques: automated exposure control; mA and/or kV adjustment per patient size (includes targeted exams where dose is matched to clinical indication); or iterative reconstruction. Contrast material: ISOVUE; Contrast volume: 70 ml; Contrast route: INTRAVENOUS (IV); COMPARISON: [facility] CT angio chest 07/29/2017 10:01 PM FINDINGS: Pulmonary arteries: Marked attenuation in caliber of the left upper lobe and lingular pulmonary arteries. No pulmonary embolus in the visualized central pulmonary arteries. Aorta: Normal caliber of the thoracic aorta. Lungs: Marked attenuation in caliber of the left sided bronchi with postobstructive left lung atelectasis. Bronchoscopy can be performed for further evaluation, as clinically indicated. C interstitial prominence and mild right basilar airspace disease. Pleural spaces: Large left pleural effusion. Heart: Coronary artery calcification. Lymph nodes: Extensive lymphadenopathy in the setting of reported cancer including 2.8 x 2.3 x 2.6 cm precarinal lymph node. Upper abdomen: Fatty infiltration of the liver. Calcified granuloma. Borderline splenomegaly. Calcified 4.0 cm left adrenal upper lobe mass, suspicious for neoplasm. Bones/joints: Degenerative change, Schmorl's nodes, vertebral endplate irregularity. Soft tissues: Subcutaneous edema. IMPRESSION: 1. Marked attenuation in caliber of the left upper lobe and lingular pulmonary arteries. No pulmonary embolus in the visualized central pulmonary arteries. 2. Marked attenuation in caliber of the left sided bronchi with postobstructive left lung atelectasis. Bronchoscopy can be performed for further evaluation, as clinically indicated. 3. Large left pleural effusion. 4. Additional findings as described above.
--- NOTE | 2021-08-29 14:50 | PC.NURSE ---
called ED for report. Stevie Corbin unavailable at this time
--- NOTE | 2021-08-29 15:08 | PC.NURSE ---
transported to CT on 3L per NC, pt tolerated well. Pt back in room at this time. Pt sitting up in bed eating ice, reports she would like to stay on cannula for a few minutes. Will continue to monitor
[2021-08-29 15:13] LABS: Reflex Lactic Add Lactic Reflex
[2021-08-29 15:26] LABS: Troponin I < 0.01 ng/ml (0.00-0.034)
--- NOTE | 2021-08-29 15:26 | PC.NURSE ---
REPORT CALLED TO RODRIGUE GANT
--- NOTE | 2021-08-29 15:57 | PC.NURSE ---
pt arrived to room 217 @ 1540. Levo gtt @ 8mcg/min. HR 83 NSR and BP 105/89. Is on 3L NC with o2 sat low 90s. She wishes to keep NC on at this time versus Bipap.
[2021-08-29 17:09] LABS: Lactic Acid Follow Up (RFLX 1) 2.9 mmol/L (0.7-2.1)
--- NOTE | 2021-08-29 18:00 | PC.NURSE ---
RT placed pt back on bipap 50% per pt request
[2021-08-29 18:51] LABS: Reflex Lactic (2 hrs) Add Lactic Reflex
[2021-08-29 19:41] LABS: Lactic Acid Follow up (RFLX 2) 2.9 mmol/L (0.7-2.1)
--- NOTE | 2021-08-29 23:27 | PC.NURSE ---
RT Jaqueline placed pt on bipap about 2214; pt woke up just now feeling smothered and pt removed bipap mask, RN placed 3LNC on pt, oxygen saturation 99% on 3LNC
--- NOTE | 2021-08-29 23:30 | PC.NURSE ---
1999-bp 138/79 (98), decreased levo drip to 2mcg/min 2029-bp 117/62 (80), held levo drip 2099-bp 109/59 (75)
[2021-08-30] VITALS: BP 129/66; PULSE 116; PULSE 117; RESP 25; TEMP 39; O2SAT 100
[2021-08-30 02:00] VITALS: BP 120/67; PULSE 110; RESP 23; O2SAT 92
[2021-08-30 03:11] VITALS: O2SAT 95
[2021-08-30 04:00] VITALS: BP 88/58; PULSE 110; PULSE 121; RESP 29; TEMP 38.6; O2SAT 92
[2021-08-30 04:58] VITALS: BMI 28.8
[2021-08-30 06:00] VITALS: BP 92/29; PULSE 124; RESP 29; O2SAT 92
--- NOTE | 2021-08-30 07:24 | P.CONPHA_ITS ---
[facility] Pharmacy VTE Monitoring - Patient Demographics Admission date: 08/30/21 Report Date: 08/30/21 Time: 07:24 Allergies/Adverse Reactions: Patient Allergies adalimumab [From Humira] Allergy (Verified 08/25/21 13:08) Rash Penicillins Allergy (Verified 08/25/21 13:08) Rash metoclopramide [From Reglan] Adverse Reaction (Verified 08/25/21 13:08) Anxiety Height: 1.65 m Weight: 78.6 kg Patient Problems: Current Active Problems Acute respiratory failure (Acute) Sepsis (Acute) - VTE Risk Labs: VTE Related Lab Results Hgb 12.5 g/dL (12.2-16.2) 08/29/21 11:06 Hct 40.8 % (37.0-47.0) 08/29/21 11:06 Plt Count 494 K/mm3 (142-424) H D 08/29/21 11:06 BUN 18 mg/dl (7-17) H 08/29/21 11:06 Creatinine 1.20 mg/dl (0.52-1.04) H D 08/29/21 11:06 Estimated Creat Clear 62 mL/min (50-200) 08/29/21 11:06 Was VTE Risk Assessment Performed: Yes VTE Score: 6 VTE Risk Level: Moderate Risk Clinical Trial Participant: No - Prophylaxis VTE Prophylaxis Ordered?: Yes Types of VTE Prophylaxis: TEDS Knee High
[2021-08-30 08:00] VITALS: PULSE 130
--- NOTE | 2021-08-30 08:04 | PC.NURSE ---
Pt is restless, terminally agitated, unable to answer questions, unable to swallow, voided once last night, is febrile, tachycardic, hypotensive, and mottled (BUE and BLE). No breath sounds auscultated on left side and pt has a audible throat rattle. Daughter @ BS and wishes for comfort measures only. Stevie Johnson APRN rounded and ordered to give the following: an additional 1mg Dilaudid IV, Ativan 0.5mg IV, Fentanly 12mcg patch, and to increase LR to 100mL/hr. She will enter orders. Will update Dr. Toro when he arrives on unit.
--- NOTE | 2021-08-30 08:14 | HMH.HP ---
*Admission Date: 08/30/21 <Narda Johnson 08/30/21 08:21> *Chief complaint: Shortness of breath <Narda Johnson 08/30/21 08:47> *History of present illness: Ms. 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 Upon arrival to the emergency room she was in acute distress was found to be hypotensive. She was given a liter of IV fluids without improvement of her vital signs and was thus started on Levophed. Patient was alert and oriented and requested to be a DNR and DO NOT INTUBATE. She was offered a thoracentesis in the ER to drain the effusion on the left lung but she declined. Patient was noted also to have a fever of 102 at home and denied sputum production or hemoptysis. The time of evaluation in the emergency room she was nauseated and diaphoretic and very ill appearing. Patient did have a thoracentesis completed on 08/24/2021 and approximately 1000 mL of dark yellow clear fluid was successfully removed without complication. On 08/18/2021. With progression on CT scan of malignancy therapy was switched to Cabozatinb 60 mg daily. He was also noted to be attending lymphedema clinic for swelling in the left breast. This a.m. patient is quite restless and unable to answer questions. She does not focus and does not open her eyes. Her daughter is at the bedside and states she has been this way all night. Thus far she has been given Dilaudid 2 mg and Ativan 0.5 mg IV. <Narda Johnson 08/30/21 08:47> [facility] History Medical History: Reports:: Anxiety, Cancer, Congestive Heart Failure, Depression, Hyperlipidemia, Hypertension, Migraine, Renal Disease Denies:: Coronary Artery Disease, Diabetes Mellitus Type 1, Diabetes Mellitus Type 2, Internal Pacemaker, MRSA, Seizures <Narda Johnson 08/30/21 08:47> *Have you ever received a pneumonia vaccine?: No <Narda Johnson 08/30/21 08:21> *Have you received a flu vaccine this season?: Yes <Narda Johnson 08/30/21 08:21> Other Medical History: Reports: Anemia, Arthritis, Blood Transfusion Reaction, Chemotherapy, Hormone Therapy, Hypothyroidism, Liver Disease, Radiation Therapy, Thyroid Disease <JohnsonNarda 08/30/21 08:21> Laterality Cases: Left: Breast Biopsy, Right: Carpal Tunnel Release <JohnsonNarda 08/30/21 08:21> Other Surgeries: Yes: No Previous Surgery, Cancer Surgery (renal biopsy;left auxillary lymph node bx), Colonoscopy, , Hysterectomy-Total, Other (renal biopsy, lt axillary node bx). No: Pacemaker <AlexNarda 08/30/21 08:21> Amputation: No <JohnsonNarda 08/30/21 08:21> Fractures: No <JohnsonNarda 08/30/21 08:21> Comment: Several thoracentesis with the last being 08/25/2021 <Johnson,Narda 08/30/21 08:47> - *Social History Smoking Status: Former smoker <JohnsonNarda 08/30/21 08:21> Tobacco Type: cigarettes <JohnsonNarda 08/30/21 08:21> # Packs/Day (cigarettes): 1 <JohnsonNarda 08/30/21 08:21> #Yrs smoked (if former smoker): 25 <JohnsonNarda 08/30/21 08:21> Alcohol Intake: never <JohnsonNarda 08/30/21 08:21> Alcohol Intake Frequency:: other <JohnsonNarda 08/30/21 08:21> Substance Use Type: denies use <AlexNarda 08/30/21 08:21> *Occupational Status:: disabled <Johnson,Narda 08/30/21 08:21> Housing: house <JohnsonNarda 08/30/21 08:21> Household Members: spouse, children <Narda Johnson 08/30/21 08:21> *Travel in the last 8 weeks: None <Narda Johnson 08/30/21 08:21> - Psychiatric History Pschychiatric History:: Reports:: Anxiety, Depression <Narda Johnson 08/30/21 08:21> Family Hx:: Asthma, Cancer, Heart Attack, Hyperlipidemia, Hypertension, Stroke <Narda Johnson - 08/30/21 08:21> Review of Systems - Review of Systems Review of systems:: unable to obtain <Narda Johnson 08/30/21 08:47
--- NOTE | 2021-08-30 09:09 | PC.NURSE ---
per Dr. Toro, pt is now comfort care only. Family @ BS coping appropriately.
--- NOTE | 2021-08-30 09:12 | PC.NURSE ---
Addendum entered by Lanie Garcia RN 08/30/21 09:30: family asked that tele be removed. Will keep O2 for comfort Original Note: family wishes for pulse ox and bp cuff to be removed. They are agreeable to tele and O2.
--- NOTE | 2021-08-30 09:15 | HMH.PULMCON ---
*Admission Date: 08/30/21 [facility] History Medical History: Reports:: Anxiety, Cancer, Congestive Heart Failure, Depression, Hyperlipidemia, Hypertension, Migraine, Renal Disease Denies:: Coronary Artery Disease, Diabetes Mellitus Type 1, Diabetes Mellitus Type 2, Internal Pacemaker, MRSA, Seizures *Have you ever received a pneumonia vaccine?: No *Have you received a flu vaccine this season?: Yes Other Medical History: Reports: Anemia, Arthritis, Blood Transfusion Reaction, Chemotherapy, Hormone Therapy, Hypothyroidism, Liver Disease, Radiation Therapy, Thyroid Disease Laterality Cases: Left: Breast Biopsy, Right: Carpal Tunnel Release Other Surgeries: Yes: No Previous Surgery, Cancer Surgery (renal biopsy;left auxillary lymph node bx), Colonoscopy, , Hysterectomy-Total, Other (renal biopsy, lt axillary node bx). No: Pacemaker Amputation: No Fractures: No - *Social History Smoking Status: Former smoker Tobacco Type: cigarettes # Packs/Day (cigarettes): 1 #Yrs smoked (if former smoker): 25 Alcohol Intake: never Alcohol Intake Frequency:: other Substance Use Type: denies use *Occupational Status:: disabled Housing: house Household Members: spouse, children *Travel in the last 8 weeks: None - Psychiatric History Pschychiatric History:: Reports:: Anxiety, Depression Family Hx:: Asthma, Cancer, Heart Attack, Hyperlipidemia, Hypertension, Stroke Meds Home Medications Medication Instructions Recorded Confirmed Type estradioL [Estradiol] 2 mg PO DAILY 07/03/18 08/29/21 History Levothyroxine Sodium 150 mcg PO DAILYDM 11/21/19 08/29/21 History [Levothyroxine 150mcg (0.15mg) Tab] Melatonin 10 mg PO HSP PRN 12/23/19 08/25/21 History Duloxetine HCl [Cymbalta 30mg 30 mg PO DAILY 09/16/20 08/29/21 History capsule] rimegepant 75 mg disintegrating 75 mg PO ONCE PRN 12/14/20 08/29/21 History tablet albuterol sulfate 90 mcg/actuation 2 inh IH Q6H PRN 90 Days #8.5 g 05/30/21 08/25/21 Rx aerosol inhaler ipratropium 0.5 mg-albuterol 3 mg 3 ml IH QID PRN 90 Days #270 ml 05/30/21 08/25/21 Rx (2.5 mg base)/3 mL nebulization soln Oxycodone HCl [Oxycodone (IR) 10mg 10 mg PO QIDP PRN 06/07/21 08/29/21 History Tab] fentaNYL [fentaNYL Patch 12mcg/hr] 12 mcg TD Q72H 06/07/21 08/29/21 History amitriptyline 25 mg tablet 50 mg PO HS 90 Days #180 tab NS 07/12/21 08/29/21 Rx Cabozantinib S-Malate [Cabometyx] 60 mg PO DAILY 08/06/21 08/25/21 History lisinopriL [Lisinopril] 10 mg PO DAILY 08/06/21 08/29/21 History Brompheniramine/Pseudoephed/Dm 5 - 10 ml PO Q6HP PRN #240 ml 08/10/21 08/29/21 Rx [Bromfed DM Cough Syrup 5mL] Budesonide/Formoterol Fumarate 2 puff IH BID 08/24/21 08/25/21 History [Budesonide-Formoterol 160-4.5] Ondansetron [Zofran 4mg ODT] 4 mg PO DAILYP PRN 08/24/21 08/25/21 History Pregabalin [Lyrica 100mg Cap] 100 mg PO TID 08/24/21 08/29/21 History Allergies Allergy/AdvReac Type Severity Reaction Status Date / Time adalimumab [From Humira] Allergy Rash Verified 08/25/21 13:08 Penicillins Allergy Rash Verified 08/25/21 13:08 metoclopramide [From Reglan] AdvReac Anxiety Verified 08/25/21 13:08 Internal Medicine - CN: Reslt - Labs CBC & Chem 7: 08/29/21 11:06 08/29/21 11:06 Labs: Short CBC 08/29/21 Range/Units 11:06 WBC 11.7 H D (4.8-10.8) K/mm3 Hgb 12.5 (12.2-16.2) g/dL Hct 40.8 (37.0-47.0) % Plt Count 494 H D (142-424) K/mm3 BMP 08/29/21 11:06 Sodium 137 Potassium 3.7 Chloride 99 Carbon Dioxide 29 BUN 18 H Creatinine 1.20 H D Glucose 175 H Calcium 8.2 L Cardiac Enzymes 05/30/22 05/30/22 Range/Units 11:06 13:54 Troponin I < 0.01 < 0.01 (0.00-0.034) ng/ml Liver Function 08/29/21 Range/Units 11:06 Total Bilirubin 0.4 (0.2-1.3) mg/dl AST 42 H D (14-36) U/L ALT 27 D (12-78) U/L Alkaline Phosphatase 137 H (38-126) U/L Albumin 3.5 (3.5-5.0) g/dl - ABG Interpretation ABG results: 08/29/21
--- NOTE | 2021-08-30 09:30 | PC.NURSE ---
patient is comfort care, transferred out of stepdown notified admissions.
--- NOTE | 2021-08-30 11:22 | PC.NURSE ---
per family: do not turn pt and no vital signs are to be taken. Pt appears comfortable
--- NOTE | 2021-08-31 08:21 | HMH.ACPN2 ---
<Cristal Washington - Last Filed: 08/31/21 08:21> Internal Medicine - PN: Subj *Date: 08/31/21 *Time: 08:21 Interval history: Patient seems to be trying to wake up this morning. She does open her eyes for only brief seconds, but does not communicate. She does seem agitated. Her states this is the first time she has opened her eyes and tried to move. He is concerned that she may have been too sedated. Exam Vital signs and Labs for Last 24 Hours: Temp Pulse Resp BP Pulse Ox 101.4 F H 130 H 29 H 92/29 L 92 L 08/30/21 04:00 08/30/21 08:00 08/30/21 06:00 08/30/21 06:00 08/30/21 06:00 I & O for Last 24 hours: Intake & Output 08/28/21 08/29/21 08/30/21 08/31/21 11:59 11:59 11:59 11:59 Intake Total 2474.028 / 2474.028 Balance 2474.028 / 2474.028 Weight 170 lb 173 lb 4.533 oz - Constitutional no acute distress - *Routine Respiratory Exam Present: rhonchi, crackles - *Routine Cardiovascular Exam Present: RRR - *Routine Abdominal Exam Present: soft, normoactive bowel sounds. Absent: tenderness - *Routine Skin Exam Present: warm. Absent: rash Assessment and Plan (1) Hypotension Status: Acute Category: Medical Code(s): I95.9 - Hypotension, unspecified (2) Acute respiratory failure Status: Acute Qualifiers: Respiratory failure complication: hypoxia Qualified Code(s): J96.01 - Acute respiratory failure with hypoxia Category: Medical Code(s): J96.00 - Acute respiratory failure, unspecified whether with hypoxia or hypercapnia (3) Pleural effusion on left Status: Acute Category: Medical Code(s): J90 - Pleural effusion, not elsewhere classified (4) Hypothyroid Status: Chronic Qualifiers: Hypothyroidism type: unspecified Qualified Code(s): E03.9 - Hypothyroidism, unspecified Category: Medical Code(s): E03.9 - Hypothyroidism, unspecified (5) Metastatic renal cell carcinoma Status: Chronic Qualifiers: Laterality: unspecified laterality Qualified Code(s): C64.9 - Malignant neoplasm of unspecified kidney, except renal pelvis Category: Medical Code(s): C64.9 - Malignant neoplasm of unspecified kidney, except renal pelvis - Assessment and plan all Dx Assessment and Plan for all problems:: We will continue comfort measures and discuss further care with Dr. Toro. <Guillaume Toro - Last Filed: 08/31/21 08:31> Internal Medicine - PN: Subj *Date: 08/31/21 *Time: 08:30 Exam Vital signs and Labs for Last 24 Hours: Temp Pulse Resp BP Pulse Ox 101.4 F H 130 H 29 H 92/29 L 92 L 08/30/21 04:00 08/30/21 08:00 08/30/21 06:00 08/30/21 06:00 08/30/21 06:00 I & O for Last 24 hours: Intake & Output 08/28/21 08/29/21 08/30/21 08/31/21 23:59 23:59 23:59 23:59 Intake Total 1574.028 / 1574.028 900 / 900 Balance 1574.028 / 1574.028 900 / 900 Weight 173 lb 5 oz 173 lb 4.533 oz Assessment and Plan (1) Hypotension Status: Acute Category: Medical Code(s): I95.9 - Hypotension, unspecified (2) Acute respiratory failure Status: Acute Qualifiers: Respiratory failure complication: hypoxia Qualified Code(s): J96.01 - Acute respiratory failure with hypoxia Category: Medical Code(s): J96.00 - Acute respiratory failure, unspecified whether with hypoxia or hypercapnia (3) Pleural effusion on left Status: Acute Category: Medical Code(s): J90 - Pleural effusion, not elsewhere classified (4) Hypothyroid Status: Chronic Qualifiers: Hypothyroidism type: unspecified Qualified Code(s): E03.9 - Hypothyroidism, unspecified Category: Medical Code(s): E03.9 - Hypothyroidism, unspecified (5) Metastatic renal cell carcinoma Status: Chronic Qualifiers: Laterality: unspecified laterality Qualified Code(s): C64.9 - Malignant neoplasm of unspecified kidney, except renal pelvis Category: Medical Code(s): C64.9 - Malignant neoplasm of unspecified kidney,
--- NOTE | 2021-08-31 09:11 | PC.NURSE ---
Family is refusing all care
--- NOTE | 2021-08-31 13:47 | SW/DCPLANNER ---
Addendum entered by Angelica Frankel 08/31/21 15:53: This patient will admitted to Hospice inpatient as of today. Addendum entered by Angelica Frankel 08/31/21 14:35: A.D. w/ Hospice is at bedside evaluating this patient. Original Note: Per family request patient information has been faxed to [facility]. I will follow up with Hospice once patient information is reviewed. Family is aware that Hospice will evaluate this patient this afternoon.
--- NOTE | 2021-09-01 04:33 | PC.NURSE ---
Pt responds to painful stimuli. Remains on 4L O2 NC. No VS obtained per family request except temp. Pt turned Q2 H and oral care provided. Medication administered per may. Pt's remains at bedside. Will continue to monitor.
[2021-09-01 05:00] VITALS: BMI 28.8
--- NOTE | 2021-09-01 08:32 | PC.NURSE ---
family has refused all care on patient
--- NOTE | 2021-09-01 08:33 | HMH.ACPN2 ---
<Cristal Washington - Last Filed: 09/01/21 08:33> Internal Medicine - PN: Subj *Date: 09/01/21 *Time: 08:34 Interval history: Hospice has now accepted the patient. She has been resting comfortably. Exam Vital signs and Labs for Last 24 Hours: Temp Pulse Resp BP Pulse Ox 101.4 F H 130 H 29 H 92/29 L 92 L 08/30/21 04:00 08/30/21 08:00 08/30/21 06:00 08/30/21 06:00 08/30/21 06:00 I & O for Last 24 hours: Intake & Output 08/29/21 08/30/21 08/31/21 09/01/21 11:59 11:59 11:59 11:59 Intake Total 2474.028 / 2474.028 Balance 2474.028 / 2474.028 Weight 170 lb 173 lb 4.533 oz 173 lb 4.533 oz Microbiology Reports for the Last 24 Hours: Microbiology 08/29/21 11:06 Blood Blood Culture - Preliminary NO GROWTH AFTER 48 HOURS 08/29/21 11:06 Blood Blood Culture - Preliminary NO GROWTH AFTER 48 HOURS - Constitutional no acute distress - *Routine Respiratory Exam Present: rhonchi - *Routine Cardiovascular Exam Present: RRR - *Routine Abdominal Exam Present: soft, normoactive bowel sounds. Absent: tenderness Assessment and Plan (1) Hypotension Status: Acute Category: Medical Code(s): I95.9 - Hypotension, unspecified (2) Acute respiratory failure Status: Acute Qualifiers: Respiratory failure complication: hypoxia Qualified Code(s): J96.01 - Acute respiratory failure with hypoxia Category: Medical Code(s): J96.00 - Acute respiratory failure, unspecified whether with hypoxia or hypercapnia (3) Pleural effusion on left Status: Acute Category: Medical Code(s): J90 - Pleural effusion, not elsewhere classified (4) Hypothyroid Status: Chronic Qualifiers: Hypothyroidism type: unspecified Qualified Code(s): E03.9 - Hypothyroidism, unspecified Category: Medical Code(s): E03.9 - Hypothyroidism, unspecified (5) Metastatic renal cell carcinoma Status: Chronic Qualifiers: Laterality: unspecified laterality Qualified Code(s): C64.9 - Malignant neoplasm of unspecified kidney, except renal pelvis Category: Medical Code(s): C64.9 - Malignant neoplasm of unspecified kidney, except renal pelvis - Assessment and plan all Dx Assessment and Plan for all problems:: Continue comfort care. <Guillaume Toro - Last Filed: 09/01/21 08:37> Internal Medicine - PN: Subj *Date: 09/01/21 *Time: 08:36 Exam Vital signs and Labs for Last 24 Hours: Temp Pulse Resp BP Pulse Ox 101.4 F H 130 H 29 H 92/29 L 92 L 08/30/21 04:00 08/30/21 08:00 08/30/21 06:00 08/30/21 06:00 08/30/21 06:00 I & O for Last 24 hours: Intake & Output 08/29/21 08/30/21 08/31/21 09/01/21 23:59 23:59 23:59 23:59 Intake Total 1574.028 / 1574.028 900 / 900 Balance 1574.028 / 1574.028 900 / 900 Weight 173 lb 5 oz 173 lb 4.533 oz 173 lb 4.533 oz Microbiology Reports for the Last 24 Hours: Microbiology 08/29/21 11:06 Blood Blood Culture - Preliminary NO GROWTH AFTER 48 HOURS 08/29/21 11:06 Blood Blood Culture - Preliminary NO GROWTH AFTER 48 HOURS Assessment and Plan (1) Hypotension Status: Acute Category: Medical Code(s): I95.9 - Hypotension, unspecified (2) Acute respiratory failure Status: Acute Qualifiers: Respiratory failure complication: hypoxia Qualified Code(s): J96.01 - Acute respiratory failure with hypoxia Category: Medical Code(s): J96.00 - Acute respiratory failure, unspecified whether with hypoxia or hypercapnia (3) Pleural effusion on left Status: Acute Category: Medical Code(s): J90 - Pleural effusion, not elsewhere classified (4) Hypothyroid Status: Chronic Qualifiers: Hypothyroidism type: unspecified Qualified Code(s): E03.9 - Hypothyroidism, unspecified Category: Medical Code(s): E03.9 - Hypothyroidism, unspecified (5) Metastatic cruz
--- NOTE | 2021-09-01 10:17 | PC.NURSE ---
All care provided to this patient by Radha AVENDAÑO during this shift, was done so under my direct supervision. Elli Arreola RN
--- NOTE | 2021-09-01 19:22 | PC.NURSE ---
pt has appeared comfortable this shift. earlier in the day, pt had some breakthrough pain that required medication adjustments. family has remained at bedside. pt has received all meds around the clock to manage symptoms. daughter performs oral care and turns patient at the request of the daughter. pt has 5-10 sec periods of apnea noted.
[2021-09-01 19:40] VITALS: TEMP 38.2
--- NOTE | 2021-09-02 04:17 | PC.NURSE ---
Pt responds to pain. Has opened eyes at times when turned. Pt appears to be comfortable and has rested well without any breakthrough pain noted. Pt turned Q2 and oral care provided by staff. She has voided x2. Medication administered per mar. Family remains at bedside. No VS obtained per family request except for temp at beginning of shift.
[2021-09-02 05:35] VITALS: TEMP 37.7
[2021-09-02 06:00] VITALS: BMI 28.8
--- NOTE | 2021-09-02 08:15 | HMH.ACPN2 ---
<Cristal Washington - Last Filed: 09/02/21 08:15> Internal Medicine - PN: Subj *Date: 09/02/21 *Time: 08:15 Interval history: Patient has remained comfortable. She is running a fever and was given IV tylenol. Exam Vital signs and Labs for Last 24 Hours: Temp Pulse Resp BP Pulse Ox 99.8 F H 130 H 29 H 92/29 L 92 L 09/02/21 05:35 08/30/21 08:00 08/30/21 06:00 08/30/21 06:00 08/30/21 06:00 I & O for Last 24 hours: Intake & Output 08/30/21 08/31/21 09/01/21 09/02/21 11:59 11:59 11:59 11:59 Intake Total 2474.028 / 2474.028 Balance 2474.028 / 2474.028 Weight 173 lb 4.533 oz 173 lb 4.533 oz 173 lb 4 oz - Constitutional no acute distress - *Routine Respiratory Exam Present: rales, rhonchi - *Routine Cardiovascular Exam Present: RRR - *Routine Abdominal Exam Present: soft, normoactive bowel sounds. Absent: tenderness - *Routine Extremities Exam Absent: cyanosis, clubbing, edema - *Routine Skin Exam Present: warm. Absent: rash - *Routine Neurological Exam responds only to deep pain Assessment and Plan (1) Hypotension Status: Acute Category: Medical Code(s): I95.9 - Hypotension, unspecified (2) Acute respiratory failure Status: Acute Qualifiers: Respiratory failure complication: hypoxia Qualified Code(s): J96.01 - Acute respiratory failure with hypoxia Category: Medical Code(s): J96.00 - Acute respiratory failure, unspecified whether with hypoxia or hypercapnia (3) Pleural effusion on left Status: Acute Category: Medical Code(s): J90 - Pleural effusion, not elsewhere classified (4) Hypothyroid Status: Chronic Qualifiers: Hypothyroidism type: unspecified Qualified Code(s): E03.9 - Hypothyroidism, unspecified Category: Medical Code(s): E03.9 - Hypothyroidism, unspecified (5) Metastatic renal cell carcinoma Status: Chronic Qualifiers: Laterality: unspecified laterality Qualified Code(s): C64.9 - Malignant neoplasm of unspecified kidney, except renal pelvis Category: Medical Code(s): C64.9 - Malignant neoplasm of unspecified kidney, except renal pelvis - Assessment and plan all Dx Assessment and Plan for all problems:: Continue comfort care. <Dejah Toroian - Last Filed: 09/02/21 09:01> Internal Medicine - PN: Subj *Date: 09/02/21 *Time: 09:00 Exam Vital signs and Labs for Last 24 Hours: Temp Pulse Resp BP Pulse Ox 99.8 F H 130 H 29 H 92/29 L 92 L 09/02/21 05:35 08/30/21 08:00 08/30/21 06:00 08/30/21 06:00 08/30/21 06:00 I & O for Last 24 hours: Intake & Output 08/30/21 08/31/21 09/01/21 09/02/21 23:59 23:59 23:59 23:59 Intake Total 900 / 900 Balance 900 / 900 Weight 173 lb 4.533 oz 173 lb 4.533 oz 173 lb 4 oz Assessment and Plan (1) Hypotension Status: Acute Category: Medical Code(s): I95.9 - Hypotension, unspecified (2) Acute respiratory failure Status: Acute Qualifiers: Respiratory failure complication: hypoxia Qualified Code(s): J96.01 - Acute respiratory failure with hypoxia Category: Medical Code(s): J96.00 - Acute respiratory failure, unspecified whether with hypoxia or hypercapnia (3) Pleural effusion on left Status: Acute Category: Medical Code(s): J90 - Pleural effusion, not elsewhere classified (4) Hypothyroid Status: Chronic Qualifiers: Hypothyroidism type: unspecified Qualified Code(s): E03.9 - Hypothyroidism, unspecified Category: Medical Code(s): E03.9 - Hypothyroidism, unspecified (5) Metastatic renal cell carcinoma Status: Chronic Qualifiers: Laterality: unspecified laterality Qualified Code(s): C64.9 - Malignant neoplasm of unspecified kidney, except renal pelvis Category: Medical Code(s): C64.9 - Malignant neoplasm of unspecified kidney, except renal pelvis - Assessment and plan all Dx Assessment and Plan for all problems:: Saw patient, agree with above note.
--- NOTE | 2021-09-02 09:16 | PC.NURSE ---
patient is comfort care. will hold on starting new iv unless needed to promote comfort.
--- NOTE | 2021-09-02 17:26 | PC.NURSE ---
Pt's family has refused vs this shift. Pt hasnt voided this shift. Have educated family. Pt's rattle and breathing has changed. Meds given per may. Spoke w/ Dr. Toro for a z 1 dose of diladuid and levsin. Family @ bedside. Mx continues.
[2021-09-03 05:00] VITALS: BMI 28.8
--- NOTE | 2021-09-03 05:41 | PC.NURSE ---
pt remains comfort care, giving scheduled meds as ordered, pt with oral and nasal secretions requiring suction every 4 hours, pt voided in brief once this shift, turning pt as tolerates, will continue to monitor
--- NOTE | 2021-09-03 09:19 | HMH.ACPN2 ---
Internal Medicine - PN: Subj *Date: 09/03/21 *Time: 09:19 Interval history: Nursing notes reviewed, spoke to patient's family. They had some concerns about care provided overnight. Exam Vital signs and Labs for Last 24 Hours: Temp Pulse Resp BP Pulse Ox 99.8 F H 130 H 29 H 92/29 L 92 L 09/02/21 05:35 08/30/21 08:00 08/30/21 06:00 08/30/21 06:00 08/30/21 06:00 I & O for Last 24 hours: Intake & Output 08/31/21 09/01/21 09/02/21 09/03/21 23:59 23:59 23:59 23:59 Output Total 0 / 0 Balance 0 / 0 Weight 173 lb 4.533 oz 173 lb 4 oz 173 lb 4.004 oz - Constitutional Comments: sedate - *Routine Respiratory Exam Present: rhonchi, wheezes, diminished air movement (left side) - *Routine Cardiovascular Exam Present: RRR, tachycardia Assessment and Plan (1) Hypotension Status: Acute Category: Medical Code(s): I95.9 - Hypotension, unspecified (2) Acute respiratory failure Status: Acute Qualifiers: Respiratory failure complication: hypoxia Qualified Code(s): J96.01 - Acute respiratory failure with hypoxia Category: Medical Code(s): J96.00 - Acute respiratory failure, unspecified whether with hypoxia or hypercapnia (3) Pleural effusion on left Status: Acute Category: Medical Code(s): J90 - Pleural effusion, not elsewhere classified (4) Hypothyroid Status: Chronic Qualifiers: Hypothyroidism type: unspecified Qualified Code(s): E03.9 - Hypothyroidism, unspecified Category: Medical Code(s): E03.9 - Hypothyroidism, unspecified (5) Metastatic renal cell carcinoma Status: Chronic Qualifiers: Laterality: unspecified laterality Qualified Code(s): C64.9 - Malignant neoplasm of unspecified kidney, except renal pelvis Category: Medical Code(s): C64.9 - Malignant neoplasm of unspecified kidney, except renal pelvis - Assessment and plan all Dx Assessment and Plan for all problems:: Continue end of life care.
--- NOTE | 2021-09-03 18:07 | PC.NURSE ---
Pt has appeared comfortable this shift. Pt has been a q2h turn and oral care w/ oral suctioning this shift. Pt has gotten a full bed bath and bed change this shift by this RN and Christine Diaz RN. Pt has had x2 incontinent episodes this shift. Hypoactive bowel sounds, no BM noted this shift. Pt is mottled in all extremities, and face is flushed. Pt will have 15-30 seconds of apnea at times. She remains on 4L NC for comfort. Pt has received all scheduled medications for pain, agitation and secretions. PT has received PRN IV tylenol x1 this shift per family request. Family has remained at bedside, and have expressed no grievances. No other acute changes, will monitor.
[2021-09-03 20:00] VITALS: BP 96/65; PULSE 73; RESP 18; TEMP 37.4; O2SAT 86; O2SAT 89
[2021-09-04] VITALS: BP 125/81; PULSE 104; RESP 20; TEMP 37.7; O2SAT 89
[2021-09-04 04:00] VITALS: BP 115/69; PULSE 92; RESP 20; TEMP 37.1; O2SAT 90
--- NOTE | 2021-09-04 04:00 | PC.NURSE ---
pt with more labored breathing noted, slight increase in mottling in extremities, 02 sats 89% on 4-5L; frequent suctioning performed with thick yellow/green sputum noted. family at bedside all night, vital signs have remained stable at this time.
[2021-09-04 04:58] VITALS: BMI 28.8
--- NOTE | 2021-09-04 09:03 | HMH.ACPN2 ---
Internal Medicine - PN: Subj *Date: 09/04/21 *Time: 09:03 Interval history: Family reports patient had a much better night last night. She has had no agitation. Exam Vital signs and Labs for Last 24 Hours: Temp Pulse Resp BP Pulse Ox 98.8 F 92 H 20 115/69 90 L 09/04/21 04:00 09/04/21 04:00 09/04/21 04:00 09/04/21 04:00 09/04/21 04:00 I & O for Last 24 hours: Intake & Output 09/01/21 09/02/21 09/03/21 09/04/21 23:59 23:59 23:59 23:59 Output Total 0 / 0 Balance 0 / 0 Weight 173 lb 4.533 oz 173 lb 4 oz 173 lb 4.004 oz 173 lb 0.653 oz Microbiology Reports for the Last 24 Hours: Microbiology 08/29/21 11:06 Blood Blood Culture - Final NO GROWTH AFTER 5 DAYS 08/29/21 11:06 Blood Blood Culture - Final NO GROWTH AFTER 5 DAYS - Constitutional no acute distress Comments: sedate - *Routine Respiratory Exam Present: decreased breath sounds (left chest), rhonchi - *Routine Cardiovascular Exam Present: RRR, tachycardia Assessment and Plan (1) Hypotension Status: Acute Category: Medical Code(s): I95.9 - Hypotension, unspecified (2) Acute respiratory failure Status: Acute Qualifiers: Respiratory failure complication: hypoxia Qualified Code(s): J96.01 - Acute respiratory failure with hypoxia Category: Medical Code(s): J96.00 - Acute respiratory failure, unspecified whether with hypoxia or hypercapnia (3) Pleural effusion on left Status: Acute Category: Medical Code(s): J90 - Pleural effusion, not elsewhere classified (4) Hypothyroid Status: Chronic Qualifiers: Hypothyroidism type: unspecified Qualified Code(s): E03.9 - Hypothyroidism, unspecified Category: Medical Code(s): E03.9 - Hypothyroidism, unspecified (5) Metastatic renal cell carcinoma Status: Chronic Qualifiers: Laterality: unspecified laterality Qualified Code(s): C64.9 - Malignant neoplasm of unspecified kidney, except renal pelvis Category: Medical Code(s): C64.9 - Malignant neoplasm of unspecified kidney, except renal pelvis - Assessment and plan all Dx Assessment and Plan for all problems:: Continue end of life care.
--- NOTE | 2021-09-04 13:30 | PC.NURSE ---
nursing in room to check on patient, family @ bedside.. Pt respirations are shallow and her pulse is weak and thready. Called Dr. Toro @ [phone] and he gave permission for Dr. Jordan to pronounce [id number] pt is no longer breathing and her pulse has stopped. Contacted Charge nurse to verify. Dr. Jordan in to bedside called TOMarie @ [phone] Contacted [facility] and pt was ruled out for organ donation by Jyoti Lua #[phone] Called Hospice Nurse trade union secretary.
--- NOTE | 2021-09-04 13:34 | HMH.ACPN2 ---
Internal Medicine - PN: Subj *Date: 09/04/21 *Time: 13:34 Interval history: The patient's condition deteriorated through the day. I was on the floor and was asked to see the patient after she had become pulseless and nonbreathing. Members of the family are present. Exam Vital signs and Labs for Last 24 Hours: Temp Pulse Resp BP Pulse Ox 98.8 F 92 H 20 115/69 90 L 09/04/21 04:00 09/04/21 04:00 09/04/21 04:00 09/04/21 04:00 09/04/21 04:00 I & O for Last 24 hours: Intake & Output 09/02/21 09/03/21 09/04/21 09/05/21 11:59 11:59 11:59 11:59 Output Total 0 / 0 Balance 0 / 0 Weight 173 lb 4 oz 173 lb 4.004 oz 173 lb 0.653 oz Microbiology Reports for the Last 24 Hours: Microbiology 08/29/21 11:06 Blood Blood Culture - Final NO GROWTH AFTER 5 DAYS 08/29/21 11:06 Blood Blood Culture - Final NO GROWTH AFTER 5 DAYS - Constitutional Comments: The patient is pulseless and nonbreathing. - *Routine Respiratory Exam Comments: Non breathing - *Routine Cardiovascular Exam Comments: Pulseless Assessment and Plan (1) Hypotension Status: Acute Category: Medical Code(s): I95.9 - Hypotension, unspecified (2) Acute respiratory failure Status: Acute Qualifiers: Respiratory failure complication: hypoxia Qualified Code(s): J96.01 - Acute respiratory failure with hypoxia Category: Medical Code(s): J96.00 - Acute respiratory failure, unspecified whether with hypoxia or hypercapnia (3) Pleural effusion on left Status: Acute Category: Medical Code(s): J90 - Pleural effusion, not elsewhere classified (4) Hypothyroid Status: Chronic Qualifiers: Hypothyroidism type: unspecified Qualified Code(s): E03.9 - Hypothyroidism, unspecified Category: Medical Code(s): E03.9 - Hypothyroidism, unspecified (5) Metastatic renal cell carcinoma Status: Chronic Qualifiers: Laterality: unspecified laterality Qualified Code(s): C64.9 - Malignant neoplasm of unspecified kidney, except renal pelvis Category: Medical Code(s): C64.9 - Malignant neoplasm of unspecified kidney, except renal pelvis - Assessment and plan all Dx Assessment and Plan for all problems:: The patient was pronounced at 1:30 PM. Body to be released to the home.
--- NOTE | 2021-09-04 14:31 | PC.NURSE ---
contacted [facility] per family's request
--- NOTE | 2021-09-04 15:49 | PC.NURSE ---
pt has been discharged form the facility and taken by [facility]. all belongings were given to the family
--- NOTE | 2021-09-05 16:05 | HMH.DCSUM ---
General - General Admission date:: 08/29/21 Discharge date: 09/04/21 HPI HPI: Ms. 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 Upon arrival to the emergency room she was in acute distress was found to be hypotensive. She was given a liter of IV fluids without improvement of her vital signs and was thus started on Levophed. Patient was alert and oriented and requested to be a DNR and DO NOT INTUBATE. She was offered a thoracentesis in the ER to drain the effusion on the left lung but she declined. Patient was noted also to have a fever of 102 at home and denied sputum production or hemoptysis. At the time of evaluation in the emergency room she was nauseated and diaphoretic and very ill appearing. Patient did have a thoracentesis completed on 08/24/2021 and approximately 1000 mL of dark yellow clear fluid was successfully removed without complication. On 08/18/[address] scan of malignancy therapy was switched to Cabozatinb 60 mg daily. SHe was also noted to be attending lymphedema clinic for swelling in the left breast. The a.m. after adm patient was quite restless and unable to answer questions. She did not focus and did not open her eyes. Her daughter was at the bedside and stated she had been this way throughout the night. She had been given Dilaudid 2 mg and Ativan 0.5 mg IV. Hospital Course Hospital Course: On admission patient with was given IV fluid bolus and then at 100 an hour. She was given Ativan for restlessness/agitation and Dilaudid for discomfort. She continued with a fever and was unable to take p.o. medicines. She was given acetaminophen 1000 mg IV. A.m. after admission family decided on comfort measures only. To note she was a DNR and DO NOT INTUBATE on admission. On 09/01/2021 Hospice accepted the patient. She continued with comfort medicines as per hospice.. She was turned for comfort and continued with oxygen. Her family remained at bedside. On 2021 patient's condition was noted to have deteriorated throughout the day. Dr. Jordan was on the floor and was asked to see the patient after she had become pulseless and not breathing. Members of the family were present. The patient was pronounced at 1:30 PM on this date. Body was released to wear a home. Objective Vital signs: Temp Pulse Resp BP Pulse Ox 98.8 F 92 H 20 115/69 90 L 09/04/21 04:00 09/04/21 04:00 09/04/21 04:00 09/04/21 04:00 09/04/21 04:00 Narrative: Exam Vital signs and Labs for Last 24 Hours: Temp Pulse Resp BP Pulse Ox 98.8 F 92 H 20 115/69 90 L 09/04/21 04:00 09/04/21 04:00 09/04/21 04:00 09/04/21 04:00 09/04/21 04:00 I & O for Last 24 hours: Intake & Output 09/01/21 09/02/21 09/03/21 09/04/21 23:59 23:59 23:59 23:59 Output Total 0 / 0 Balance 0 / 0 Weight 173 lb 4.533 oz 173 lb 4 oz 173 lb 4.004 oz 173 lb 0.653 oz Microbiology Reports for the Last 24 Hours: Microbiology 08/29/21 11:06 Blood Blood Culture - Final NO GROWTH AFTER 5 DAYS 08/29/21 11:06 Blood Blood Culture - Final NO GROWTH AFTER 5 DAYS - Constitutional no acute distress Comments: sedate - *Routine Respiratory Exam Present: decreased breath sounds (left chest), rhonchi - *Routine Cardiovascular Exam Present: RRR, tachycardia Results Completed studies during hospitalization [Text1]: 08/29/2021 CXR MPRESSION: Asymmetric left-sided airspace disease and pleural effusion producing near complete opacification of the left hemithorax . 08/29/2021 CT chest IMPRESSION: 1. Marked attenuation in caliber of the left upper lobe and lingular pulmonary arteries.
== END 2021-09-04 15:45 | disposition expired | DRG 189 ==
LOC: ER 12:33 → 2ND 19:21
PROVIDERS: Admitting Provider Family Medicine; Emergency Provider Emergency Medicine; PCP Family Medicine; Visit Provider Family Medicine
DX: J96.01 Acute respiratory failure with hypoxia (principal); C64.9 Malignant neoplasm of unspecified kidney, except renal pelvis; C80.0 Disseminated malignant neoplasm, unspecified; E03.9 Hypothyroidism, unspecified; Z87.891 Personal history of nicotine dependence; Z51.5 Encounter for palliative care; I11.0 Hypertensive heart disease with heart failure; I50.9 Heart failure, unspecified; Z66 Do not resuscitate
CPT/HCPCS: 36415; 71045; 71275; 80053; 82803; 83605; 83880; 84484; 85007; 85025; 87040; 93005; 94660; 94761; 96375; 99285; C9803; J0131; J2405; Q9967; U0003; U0005